=== PATIENT | female | born 1960 | race Caucasian/White ===

== ENCOUNTER 2019-08-07 15:23 | Emergency (ER) | payer MEDICARE, MEDICAID, SELFPAY ==
[2019-08-07 15:25] VITALS: BP 156/65; PULSE 86; RESP 16; TEMP 36.8; O2SAT 95; BMI 42.9
--- NOTE | 2019-08-07 16:07 | EKG12_ITS ---
Test Reason : FALL Blood Pressure : / mmHG Vent. Rate : 098 BPM Atrial Rate : 098 BPM P-R Int : 180 ms QRS Dur : 102 ms QT Int : 360 ms P-R-T Axes : 059 -06 096 degrees QTc Int : 459 ms Sinus rhythm with Premature supraventricular complexes Poor R wave progression Septal [place], age undetermined, cannot be excluded Nonspecific T wave abnormality Abnormal ECG Confirmed by MARLENI SANTOS, RUSTAM ([id number]), editor book SUSIE SEPULVEDA ([id number]) on 08/09/2019 9:38:46 AM Referred By: JESS Confirmed By:RUSTAM YEPEZ MD
--- NOTE | 2019-08-07 16:07 | RAD_ITS ---
STUDY: X-RAY - LEFT KNEE REASON FOR EXAM: Female, 58 years old. Multiple mechanical falls. Pain and abrasions. TECHNIQUE: 4 view(s) of the knee. COMPARISON: December 02, 2012. FINDINGS: Normal visualized distal femur. Normal visualized proximal tibia and fibula. Normal proximal tibiofibular articulation. There is no acute fracture, dislocation or destructive osseous pathology. There is mild degenerative arthrosis of the medial femorotibial compartment. There is mild degenerative arthrosis of the lateral femorotibial compartment. Normal patellofemoral articulation. There is no demonstrated joint effusion. There are atherosclerotic calcifications. RAD/Knee 4 or More Views IMPRESSION: Stable degenerative arthrosis of the left knee. There is no acute fracture or dislocation. Electronically Signed: Ezekiel Odonnell DO at 17:28 EDT Tel [phone], Service support ,
--- NOTE | 2019-08-07 16:07 | RAD_ITS ---
STUDY: X-RAY - PELVIS REASON FOR EXAM: Female, 58 years old. Multiple mechanical falls over the weekend. Bilateral knee pain and weakness. TECHNIQUE: One view of the pelvis was obtained. COMPARISON: November 06, 2009. FINDINGS: There is a non-specific bowel gas pattern. Normal visualized soft tissue structures. Normal bilateral iliac wings, sacroiliac joints and visualized sacrum. Normal visualized bilateral superior and inferior pubic rami. Normal pubic symphysis. Normal ischial tuberosities. Normal visualized right femoral head. Normal right acetabulum. There is mild articular joint space narrowing of the right hip. Normal visualized left femoral head. Normal left acetabulum. There is mild articular joint space narrowing of the left hip. RAD/Pelvis 1 or 2 Views IMPRESSION: Stable mild degenerative changes of bilateral hips. There is no visualized fracture or dislocation. Electronically Signed: Ezekiel Odonnell DO at 17:42 EDT Tel [phone], Service support ,
--- NOTE | 2019-08-07 16:10 | RAD_ITS ---
STUDY: X-RAY - RIGHT KNEE REASON FOR EXAM: Female, 58 years old. Multiple mechanical falls. Pain. Knee abrasions. TECHNIQUE: 4 view(s) of the knee. COMPARISON: None. FINDINGS: Normal visualized distal femur. Normal visualized proximal tibia and fibula. Normal proximal tibiofibular articulation. There is no acute fracture, dislocation or destructive osseous pathology. There is mild degenerative arthrosis of the medial femorotibial compartment. There is mild degenerative arthrosis of the lateral femorotibial compartment. Normal patellofemoral articulation. There is no demonstrated joint effusion. There are atherosclerotic calcifications. RAD/Knee 4 or More Views IMPRESSION: Degenerative arthrosis. There is no visualized fracture or dislocation. Electronically Signed: Ezekiel Odonnell DO at 17:24 EDT Tel [phone], Service support ,
[2019-08-07] MEDS: Ondansetron 4 MG/2 ML Vial IV (16:48)
[2019-08-07] MEDS: Morphine 4 MG/ML Syringe IV (16:48)
[2019-08-07 16:59] LABS: Absolute Lymphocyte Count 1.47 X10^3/uL (0.83-4.51); Absolute Neutrophil Count 6.1 X10^3/uL (2.0-7.7); Basophil# 0.04 X10^3/uL; Basophil% 0.5 % (0-1); Eosinophil# 0.25 X10^3/uL; Eosinophils% 2.8 % (0-5); Hematocrit 34.9 % (37-47); Hemoglobin 11.7 g/dL (12.0-15.0); Lymphocyte # 1.47 X10^3/ul (4.0); Lymphocyte % 16.6 % (19-41); Mean Corp Hgb Conc 33.5 g/dL (32-36); Mean Corpuscular Hgb 30.9 pg (27.0-32.0); Mean Corpuscular Volume 92.1 fL (81-99); Mean Platelet Vol. 10.6 fl (6.2-12.0); Monocyte# 0.84 X10^3/uL; Monocyte% 9.5 % (0-10); NRBC Flagged by Analyzer 0 % (0-5); Neutrophil # 6.12 X10^3/uL (2.7-7.7); Neutrophil % 68.9 % (47-70); Platelet Count 157 K/mm3 (150-450); RBC Distribution Width CV 13.1 % (11.6-14.6); RBC Distribution Width SD 44.2 fl (35.1-43.9); Red Blood Count 3.79 M/mm3 (4.2-5.4); White Blood Count 8.9 K/mm3 (4.4-11.0)
--- NOTE | 2019-08-07 17:05 | RAD_ITS ---
STUDY: X-RAY CHEST REASON FOR EXAM: Female, 58 years old. Multiple recent mechanical falls. History of lung and breast cancer with chemotherapy. TECHNIQUE: Single AP portable view of the chest. COMPARISON: July 26, 2015. FINDINGS: There is a left subclavian Port-A-Cath with its tip at the atriocaval caval junction. The lungs are hypoexpanded. There is atelectatic changes at the lung bases. No focal mass or consolidation. There is no demonstrated pleural abnormality. There is borderline cardiomegaly. Normal mediastinum and israel. Normal visualized pulmonary arteries. Normal visualized aortic arch and descending thoracic aorta. The thoracic spine is obscured by the mediastinum. There is degenerative osteoarthritis of the bilateral shoulders. Multiple surgical clips are seen in the right axilla and along the chest wall. There is no demonstrated abnormality of the visualized soft tissue structures of the upper abdomen. RAD/Chest 1 View (Portable) IMPRESSION: 1. Limited inspiratory effort with bibasilar atelectasis. 2. Borderline cardiomegaly. 3. Port-A-Cath. Electronically Signed: Ezekiel Odnonell DO at 17:23 EDT Tel [phone], Service support ,
[2019-08-07 17:13] LABS: Anion Gap 8 (5-15); BUN 45 mg/dL (7-18); BUN/Creat Ratio 18.4 RATIO (10-20); Calcium,Total 8.5 mg/dL (8.5-10.1); Chloride 105 mmol/L (98-107); Creatinine, Serum 2.44 mg/dL (0.55-1.02); EST Glomerular Filtration Rate 22 mL/min (>60); Est Glom Filt Rate - Afr Amer 26 mL/min (>60); Estimated Creatinine Clearance 22.23 ml/min; Glucose 225 mg/dL (74-106); Potassium 4.3 mmol/L (3.5-5.1); Sodium Level 135 mmol/L (136-145)
--- NOTE | 2019-08-07 17:44 | ED.VIS.GEN ---
History of Present Illness Chief Complaint: Fall Narrative: Presents after a mechanical fall 2 days ago, she is complaining of bilateral knee pain and hip pain. She is also worried that she is having bilateral lower extremity edema. She has a history of lower extremity edema but it has not been this bad in about a year per patient. 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 She denies any fever chills. She has no head injury when she fell, after discussing with her it seems to me that the fall was mechanical. She denies any chest pain, she has no shortness of breath. She has no pleuritic component. Past Medical History - Allergies and Home Meds Allergies/Adverse Reactions: Allergies acetaminophen [From Tylenol-Codeine #3] Allergy (Verified 08/07/19 15:25) Swelling codeine phosphate [From Tylenol-Codeine #3] Allergy (Verified 08/07/19 15:25) Swelling simvastatin [From Zocor] Allergy (Verified 08/07/19 15:25) Other Primary Care Physician: Truong Rose NP-C [Primary Care Provider] - Past Medical History: - - She has multiple medical problems as well as medications which were reviewed in the chart. Surgical History: noncontributory, - - Status post right mastectomy Smoking Status: Current every day smoker - Family History Maternal Family History: Reports: No pertinent history Review of Systems General: Reports: - - She does have some generalized weakness.. Denies: Chills, Fever Eyes: Denies: Visual changes - bilaterally Cardiovascular: Denies: Chest pain Respiratory: Denies: Dyspnea, Cough Gastrointestinal: Denies: Abdominal pain, Nausea Genitourinary: Denies: Dysuria Musculoskeletal: Reports: - - She is complaining of bilateral hip and pelvis pain. She has bilateral knee pain from the fall. Edema as above Skin: Denies: Abscess, Wounds Neurological: Denies: Headache, Parasthesia, Numbness Hematologic: Reports: Easy bruising, - - She is on Plavix Physical Exam Vital Signs/Narrative: Vital Signs Temp Pulse Resp BP Pulse Ox 08/07/19 15:25 98.3 F 86 16 156/65 H 95 General: Well nourished, Well developed Head: Normocephalic, Atraumatic Eyes: Perrl, EOMI ENT: Moist mucous membranes Cardiovascular: Regular rate Respiratory: No distress, CTA bilaterally Abdomen: Soft, Nontender Back: Nontender. Negative for: CVA tenderness Extremities: - - She has ill-defined bilateral pelvis tenderness. She does not have any lumbosacral spine tenderness. She also has bilateral knee pain with no effusion full range of motion. No evidence of contusions. She has bilateral symmetric lower extremity edema which is pitting. Skin: Normal color Neurological: Alert, Oriented x3, Normal Strength, Normal Sensation Diagnostic/Tx/Re-eval - Medical Decision Making Patient has normal x-rays, work-up is unremarkable, I will discharge with reassurance as well as analgesia for her pain she is otherwise to follow-up with her PCP. Patient was seen by me during peak influenza as well as the coronavirus outbreak. It is an epidemic. It is in National state of emergency. There is quite a bit of a risk in all patients presenting to the emergency department. However per [facility] protocol all attempts were made by myself as well as the staff to keep the contamination level down. I was fully mask and gloved the entire time in the patient's presence. Patient may benefit from more testing however at this time it would be riskier to either get more testing or to get admitted to the hospital. The patient has normal vital signs appears well and can get the rest of the testing done in the outpatient environment which would be much safer for the patient. ED Disposition - Plan for ED Patient: Disposition: Home or Assisted Living Diagnosis: Fall, Contusion Instructions: ED Mechanical Fall Prescriptions: Hydrocodone Bitart/Apap 5-325 [[place] 5MG-325MG] 1 tablet PO Q4H PRN PRN 2 Days #10 tablet PRN Reason: Pain Transmission Status: Sent to [id number] Referrals: Truong Rose NP-C [Primary Care Provider] - 3-5 Days
[2019-08-07] MEDS: oxyCODONE 5 MG Tablet PO (18:11)
[2019-08-07 18:18] VITALS: BP 147/87; PULSE 86; RESP 18; TEMP 36.1
== END 2019-08-07 18:22 | disposition home or self-care (01) ==
PROVIDERS: Emergency Provider Emergency Medicine; PCP Nurse Practitioner Family
DX: S80.212A Abrasion, left knee, initial encounter (principal); S80.211A Abrasion, right knee, initial encounter; F17.200 Nicotine dependence, unspecified, uncomplicated; E11.9 Type 2 diabetes mellitus without complications; Z79.4 Long term (current) use of insulin
CPT/HCPCS: 36591; 71045; 72170; 73564; 80048; 83880; 84484; 85025; 93005; 96365; 96375; 99285; J7030; A4216; J2405

== ENCOUNTER 2019-08-13 15:47 | Emergency (ER) | payer MEDICARE, MEDICAID, SELFPAY ==
[2019-08-13 15:48] VITALS: BP 162/78; PULSE 88; RESP 16; TEMP 36.3; O2SAT 97; BMI 44.6
[2019-08-13 16:05] VITALS: BP 162/77; PULSE 92; RESP 20; O2SAT 99
--- NOTE | 2019-08-13 16:18 | EKG12_ITS ---
Test Reason : Blood Pressure : / mmHG Vent. Rate : 088 BPM Atrial Rate : 088 BPM P-R Int : 180 ms QRS Dur : 100 ms QT Int : 362 ms P-R-T Axes : 056 -10 073 degrees QTc Int : 438 ms Normal sinus rhythm Septal infarct , age undetermined Abnormal ECG Confirmed by NOEMÍ LEWIS ([id number]), editor & co founder SUSIE SEPULVEDA ([id number]) on 08/18/2019 10:30:35 AM Referred By: QUINTON Confirmed By:NOEMÍ LEWIS
[2019-08-13 16:38] VITALS: BP 148/60; BP 165/71; BP 165/80; PULSE 88; PULSE 90; PULSE 92
[2019-08-13] MEDS: Acetaminophen 500 MG Tablet 1000 MG PO (16:39)
--- NOTE | 2019-08-13 16:56 | ED.DCSUM_ITS ---
- ER Visit Summary Date of Service: 08/13/19 Chief Complaint: Lightheaded History of Present Illness: The patient is a [address] Alec Higuera. She reports that she has been lightheaded for the past 2 days. Is a continuous sensation. Is worsened by standing. She is not passed out. She denies any vertigo. Patient reports that she has had generalized weakness and has fallen 3 times in the past week. She is been using her walker to get around for the past 2 days. She reports that she was seen here 6 days ago after a fall and was seen in another emergency department 2 days ago after a fall. She reports that she had a CAT scan there. She is unsure what other testing they did. She denies loss of consciousness. She is not on anticoagulants. She reports that she has bilateral knee pain. She denies a headache. She denies neck or back pain. Patient reports that she has had bilateral ankle swelling for approximately 1 week. She states that she is had a cough for the past 3 to 4 days is productive green sputum without blood. She reports that she has been mildly short of breath. She has not had an inhaler in a while. Patient reports she has been self isolating. She denies possibility of exposure to coronavirus. Physical Examination: Vitals: Stable. Afebrile. General: Well-nourished and well-developed. Head: Normocephalic atraumatic. Neck: Supple, no lymphadenopathy. No JVD. Nontender. Cardiovascular: Regular rate and rhythm. No murmurs. Respiratory: No respiratory distress. Clear to auscultation bilaterally. Abdominal: Soft, nontender, nondistended, normal bowel sounds. No guarding, rebound, or peritoneal signs. Back: Nontender. Extremities: Approximately quarter size abrasion over the right patella. Full range of motion out of difficulty. 1+ pitting edema of her lower extremities bilaterally. Skin: Normal color, no rash. Neurologic: Alert and oriented ?3. Cranial nerves II through XII are intact. Normal strength and sensation. Psych: Depressed affect. Test Results: EKG is sinus at 88 with no acute changes. CBC shows an H&H of 10.9 and 33.3, platelets 135. Chem-7 shows a calcium of 8.4, glucose 211, BUN of 42, creatinine 2.5. LFTs show an albumin of 2.4, globulin 4.4, and alk phos of 284. Chest x-ray shows a poor inspiration and no acute disease. Work-up from the outside hospital was obtained. 2 days ago the patient had a CT of her brain, facial bones, C-spine, chest, abdomen/pelvis which were unremarkable. I do not think that any of this needs to be repeated. She also had a urinalysis that was negative. This was not repeated either. Emergency Department Course and Treatment: Patient had negative orthostatic vital signs. She was given a 500 cc bolus of normal saline. She was given Tylenol p.o. An [facility] report was obtained which shows that the patient was actually in palliative care/hospice until November of last year. She was getting 20 mg of OxyContin 3 times daily and 10 mg of oxycodone 4 times daily. Since that time her opiate prescriptions have decreased. She did see Dr. Bruner in May. However, she saw her oncologist between November and February and was only prescribed gabapentin. She had not had gabapentin filled between February and July, but was given a prescription for 900 mg 3 times daily of gabapentin by Dr. Alec Higuera on August 01. Patient was given a dose of Tylenol here. She is repeatedly asking for stronger medication. I do not appreciate any injury that would warrant opiate-based medications. I discussed the patient that some of her lightheadedness and difficulty walking may be due to the gabapentin that she is now taking again and that opiate-based medications will just make this worse. Treatment Plan: At this time I suspect that a significant portion of this pat yaneli's lightheadedness is due to the gabapentin she is on. I do not think that putting her on opiate-based medication is indicated or in her best interest. She will be discharged instructions use Tylenol for pain. Follow-up with her primary care physician in 2 days after decreasing her gabapentin if she is not improved. Return to the emergency department for any worsening symptoms. Disposition: To home in improved and stable condition. Impression: 1. Chronic renal insufficiency. 2. Lightheadedness. 3. Repeated falls. This note was generated with [employer] software. It may contain incorrect words, spelling, and punctuation that were not noted in review of the chart prior to signing ED Disposition - Plan for ED Patient: Instructions: ED Fall Dizziness Weakn Balance Referrals: Iban Eldridge MD [Primary Care Provider] - 1-2 Days if not improving Nazario Bruner MD [STAFF PHYSICIAN] - As Needed Additional Instructions: Decrease your gabapentin to 1 pill 3 times a day and then gradually increase as directed by Dr. Eldridge.
--- NOTE | 2019-08-13 17:03 | RAD_ITS ---
STUDY: X-RAY CHEST REASON FOR EXAM: Female, 58 years old. PT ARRIVES TO ED WITH DIZZINESS, COUGH, INCREASED SOB, AND RECENT FALL. TECHNIQUE: Single frontal view of the chest. COMPARISON: August 07, 2019 FINDINGS: Left subclavian catheter terminates in the superior vena cava. Surgical clips right lateral chest wall. The lungs are clear and expanded. There is no demonstrated pleural abnormality. Normal size heart. Normal mediastinum and israel. Normal visualized pulmonary arteries. Normal visualized aortic arch and descending thoracic aorta. Normal visualized thoracic spine. Normal visualized ribs, clavicles, and shoulders. There is no demonstrated abnormality of the visualized soft tissue structures of the upper abdomen. RAD/Chest 1 View (Portable) IMPRESSION: No acute disease Electronically Signed: Colt Silvestre MD at 17:39 EDT , Service support ,
[2019-08-13 17:05] VITALS: BP 166/72; PULSE 85; RESP 14; O2SAT 99
[2019-08-13 17:06] LABS: Absolute Lymphocyte Count 1.12 X10^3/uL (0.83-4.51); Absolute Neutrophil Count 5.5 X10^3/uL (2.0-7.7); Basophil# 0.02 X10^3/uL; Basophil% 0.3 % (0-1); Eosinophil# 0.19 X10^3/uL; Eosinophils% 2.5 % (0-5); Hematocrit 33.3 % (37-47); Hemoglobin 10.9 g/dL (12.0-15.0); Lymphocyte # 1.12 X10^3/ul (4.0); Mean Corp Hgb Conc 32.7 g/dL (32-36); Mean Corpuscular Hgb 30.5 pg (27.0-32.0); Mean Corpuscular Volume 93.3 fL (81-99); Mean Platelet Vol. 10.4 fl (6.2-12.0); Monocyte# 0.58 X10^3/uL; Monocyte% 7.8 % (0-10); NRBC Flagged by Analyzer 0 % (0-5); Neutrophil # 5.48 X10^3/uL (2.7-7.7); Neutrophil % 73.3 % (47-70); Platelet Count 135 K/mm3 (150-450); RBC Distribution Width CV 13.2 % (11.6-14.6); RBC Distribution Width SD 45.2 fl (35.1-43.9); Red Blood Count 3.57 M/mm3 (4.2-5.4); White Blood Count 7.5 K/mm3 (4.4-11.0)
[2019-08-13 17:18] LABS: ALB/GLOB Ratio 0.5 RATIO (0.9-2.4); AST(SGOT) 30 U/L (15-37); Alanine Aminotransfer ALT/SGPT 36 U/L (13-56); Albumin, Serum 2.4 g/dL (3.2-5.0); Alkaline Phosphatase 284 U/L (45-117); Anion Gap 7 (5-15); BUN 42 mg/dL (7-18); BUN/Creat Ratio 16.8 RATIO (10-20); Calcium,Total 8.4 mg/dL (8.5-10.1); Chloride 106 mmol/L (98-107); EST Glomerular Filtration Rate 21 mL/min (>60); Est Glom Filt Rate - Afr Amer 26 mL/min (>60); Globulin 4.4 g/dL (2.2-4.2); Glucose 211 mg/dL (74-106); Potassium 4.1 mmol/L (3.5-5.1); Protein, Total 6.8 g/dL (6.4-8.2); Sodium Level 139 mmol/L (136-145)
[2019-08-13 17:35] VITALS: BP 170/79; PULSE 87; RESP 13; O2SAT 98
== END 2019-08-13 17:49 | disposition home or self-care (01) ==
LOC: ED 17:05
PROVIDERS: Emergency Provider Emergency Medicine; PCP Family Medicine
DX: E11.22 Type 2 diabetes mellitus with diabetic chronic kidney disease (principal); N18.9 Chronic kidney disease, unspecified; R42 Dizziness and giddiness; R29.6 Repeated falls; F17.200 Nicotine dependence, unspecified, uncomplicated; I12.9 Hypertensive chronic kidney disease with stage 1 through stage 4 chronic kidney disease, or unspecified chronic kidney disease; Z79.4 Long term (current) use of insulin
CPT/HCPCS: 36591; 71045; 80053; 85025; 93005; 94640; 96360; 99285; J7040; A4216

== ENCOUNTER → 2019-12-21 12:49 | Outpatient (CLI) | payer MEDICARE, MEDICAID, SELFPAY ==
--- NOTE | 2019-12-21 12:57 | VDUE_ITS ---
Reason For Study: ESRD Right Arm Left Arm Right Cephalic Vein at the wrist measures Left Cephalic Vein at the wrist measures 0.21 x 0.21 cm. 0.29 x 0.31 cm. Right Cephalic Vein in the forearm measures Left Cephalic Vein in the forearm measures 0.24 x 0.24 cm. 0.37 x 0.38 cm. Cephalic mid forearm branch measures 0.17 x Left Cephalic Vein below antecub measures 0.17 cm. 0.33 x 0.34 cm. Right Cephalic Vein below antecub measures Left Cephalic Vein above antecub measures 0.23 x 0.23 cm. 0.32 x 0.32 cm. Right Cephalic Vein above antecub measures Left Cephalic Vein at mid bicep measures 0.42 x 0.42 cm. 0.39 x 0.38 cm. Right Cephalic Vein mid bicep measures 0.40 Left Cephalic Vein at the shoulder measures x 0.39 cm. 0.34 x 0.34 cm. Right Cephalic Vein at the shoulder measures Basilic vein at origin measures 0.41 x 0.41 0.43 x 0.43 cm. cm. Right Basilic Vein at the origin measures Basilic vein at bicep measures 0.42 x 0.41 0.42 x 0.43 cm. cm. Right Basilic Vein mid bicep measures 0.30 x Basilic vein above antecub measures 0.42 x 0.33 cm. 0.42 cm. Right Basilic Vein above antecub measures Left Brachial index measures 0.43 x 0.44 cm 0.32 x 0.31 cm. with a velocity of 113.6 cm/sec. Right Brachial artery measure 0.38 x 0.37 cm Left Radial artery measures 0.13 x 0.13 cm with a velocity of 108.5 cm/sec. with a velocity of 53.3 cm/sec. Right Radial artery measures 0.15 x 0.15 cm with a velocity of 98.1 cm/sec. Interpretation Summary Patent and compressible bilateral upper extremity cephalic and basilic veins with dimensions as noted. Normal diameter and flow bilateral brachial arteries. Small bilateral radial arteries Ordering Physician: RENAE SINGH Referring Physician: MD Chente Iban Performed By: Genna Vera Saida ?
== END ==
PROVIDERS: PCP Family Medicine
DX: Z01.818 Encounter for other preprocedural examination (principal); N18.6 End stage renal disease
CPT/HCPCS: 93970

== ENCOUNTER 2019-12-21 13:36 | Inpatient (IN) | payer MEDICARE, MEDICAID, SELFPAY ==
[2019-12-21 13:37] VITALS: BP 158/74; PULSE 91; RESP 18; TEMP 36.7; O2SAT 99; BMI 44.6
--- NOTE | 2019-12-21 14:20 | RAD_ITS ---
STUDY: X-RAY - LEFT HAND REASON FOR EXAM: Female, 59 years old. LEFT THIRD DIGIT BLISTER, REDNESS SWELLING HEAT SPREADING UP HAND TECHNIQUE: 3 view(s) of the hand. COMPARISON: None. FINDINGS: Normal radiocarpal articulation. Normal distal radioulnar joint. Normal visualized carpal bones. Normal carpal articulations Normal carpometacarpal articulation of the thumb. Normal second through fifth carpometacarpal joints. Normal metacarpi. Normal metacarpophalangeal joint of the thumb. Normal interphalangeal joint of the thumb. Normal proximal and distal phalanges of the thumb. Normal metacarpophalangeal joints of the second through fifth fingers. Normal proximal and distal interphalangeal joints of the second through fifth fingers. Normal phalanges of the second through fifth fingers. Diffuse soft tissue swelling of the third digit. RAD/Hand Min 3 Views IMPRESSION: Diffuse soft tissue swelling involving the third digit. Electronically Signed: Georges Lucas, at 14:31 EDT , Service support ,
[2019-12-21 14:40] VITALS: BP 151/61; PULSE 90; RESP 18; TEMP 36.7; O2SAT 97
[2019-12-21] MEDS: Morphine 4 MG/ML Syringe IV ×2 (15:14→16:43)
[2019-12-21] MEDS: Ondansetron 4 MG/2 ML Vial IV ×2 (15:16→23:38)
[2019-12-21 15:27] LABS: Absolute Lymphocyte Count 1.24 X10^3/uL (0.83-4.51); Absolute Neutrophil Count 7.4 X10^3/uL (2.0-7.7); Basophil# 0.03 X10^3/uL; Basophil% 0.3 % (0-1); Eosinophil# 0.28 X10^3/uL; Eosinophils% 2.9 % (0-5); Hemoglobin 10.4 g/dL (12.0-15.0); Lymphocyte # 1.24 X10^3/ul (4.0); Lymphocyte % 12.9 % (19-41); Mean Corp Hgb Conc 32.5 g/dL (32-36); Mean Corpuscular Hgb 30.7 pg (27.0-32.0); Mean Corpuscular Volume 94.4 fL (81-99); Mean Platelet Vol. 11.1 fl (6.2-12.0); Monocyte# 0.64 X10^3/uL; Monocyte% 6.7 % (0-10); NRBC Flagged by Analyzer 0 % (0-5); Neutrophil # 7.35 X10^3/uL (2.7-7.7); Neutrophil % 76.5 % (47-70); Platelet Count 138 K/mm3 (150-450); RBC Distribution Width CV 13.8 % (11.6-14.6); RBC Distribution Width SD 46.5 fl (35.1-43.9); Red Blood Count 3.39 M/mm3 (4.2-5.4); White Blood Count 9.6 K/mm3 (4.4-11.0)
[2019-12-21 15:34] LABS: ALB/GLOB Ratio 0.6 RATIO (0.9-2.4); AST(SGOT) 44 U/L (15-37); Alanine Aminotransfer ALT/SGPT 37 U/L (13-56); Albumin, Serum 2.5 g/dL (3.2-5.0); Alkaline Phosphatase 407 U/L (45-117); Anion Gap 6 (5-15); BUN 37 mg/dL (7-18); BUN/Creat Ratio 13.3 RATIO (10-20); Chloride 105 mmol/L (98-107); Creatinine, Serum 2.79 mg/dL (0.55-1.02); EST Glomerular Filtration Rate 19 mL/min (>60); Est Glom Filt Rate - Afr Amer 23 mL/min (>60); Estimated Creatinine Clearance 19.21 ml/min; Globulin 4.4 g/dL (2.2-4.2); Glucose 370 mg/dL (74-106); Protein, Total 6.9 g/dL (6.4-8.2); Sodium Level 138 mmol/L (136-145)
[2019-12-21 15:44] LABS: Lactic Acid 0.8 mmol/L (0.4-1.9)
--- NOTE | 2019-12-21 16:59 | ED.VISSUMM ---
- ER Visit Summary Date of Service: 12/21/19 Chief Complaint: Left middle finger pain and swelling History of Present Illness: The patient is a 59 F who presents with pain and swelling to her left middle finger that is been getting worse over the past 2 days. Patient states it is gradually getting worse. Patient noted a blister on her left middle finger. Patient noted increased redness and swelling of the finger today. Patient states she called her primary care physician who referred her to the emergency department. Patient describes her pain as sharp. Patient states her pain is worse with movement. Patient does admit to some tingling in the tip of her left middle finger. Patient is right-hand dominant. Physical Examination: Vital signs are stable. Patient is afebrile. Patient is in no acute distress. Skin is warm and dry. There is erythema and warmth over the middle and distal phalanges of the left middle finger. There is tenderness over the dorsal aspect of the left middle finger. There is no tenderness along the flexor tendon. There is pain with extension of the left middle finger. Capillary refill is less than 2 seconds in all digits. Sensation was intact to light touch in all digits. There is erythematous streaking going up the dorsal aspect of the left forearm. Radial pulses are equal bilaterally. Test Results: X-rays of the left hand were obtained. There is soft tissue swelling of the left middle finger. There is no evidence of osteomyelitis. CBC shows a normal white blood cell count. Hemoglobin was 10.4 hematocrit was 32.0. BUN was 37 and creatinine was 2.79. These are consistent with prior results. Glucose was 370. Potassium was 3.0. Alk phos was slightly elevated at 407 and AST was 44. Emergency Department Course and Treatment: Patient was given morphine and Zofran initially. Patient was started on Unasyn. Patient was given a repeat dose of morphine. The blister opened spontaneously and there was serous drainage noted. Case was discussed with Dr. Isrrael Soriano from orthopedics. He recommended discussing the patient with Dr. Sloan or transferring the patient to a facility that has hand surgery. Case was discussed with Dr. Sloan. He will see the patient in the hospital as a consult. Case was discussed with hospitalist, Dr. Vivar. He will admit the patient to his service. Patient understands and is agreeable with the plan. All questions were answered. Disposition: Admit to hospital Impression: 1. Cellulitis left long finger This note was generated with [employer] dictation software. It may contain incorrect words, spelling, and punctuation that were not noted in review of the chart prior to signing ED Disposition - Plan for ED Patient: Disposition: Acute Care Hospital [facility] Diagnosis: Cellulitis of left middle finger Referrals: Iban Eldridge MD [Primary Care Provider] -
[2019-12-21 18:00] VITALS: BP 172/78; PULSE 92; RESP 92; TEMP 36.8; O2SAT 94
[2019-12-21 18:12] VITALS: BP 172/78; PULSE 92; RESP 94; TEMP 36.8; O2SAT 94
[2019-12-21 18:25] VITALS: BMI 44.6
--- NOTE | 2019-12-21 18:59 | HP.PCM_ITS ---
Problem List (1) Acute kidney injury Status: Acute (2) Cellulitis of left middle finger Status: Acute (3) Right arm cellulitis Status: Acute (4) Tobacco abuse Status: Acute History of Present Illness Date of Admission: 12/21/19 Chief Complaint: Swelling in the left long finger. The patient is a 59 year old F presents with 3-day history of swelling and redness of the left long finger. Patient stated began as a blister and just has progressively gotten worse. States that she has had redness extending up her arm. Has had increased blistering underneath her finger. Denies any trauma. She does not have any pets and denies any contact with anyone with pets who may have bitten her hand. Patient states that during the wintertime, she does, get pain in her distal digits but never has any discoloration. Patient denies any other constitutional symptoms. She presented to the emergency room where she was found to have cellulitis and received ampicillin/sulbactam. [] Past Medical History Medical History: Medical History (Last Updated 12/21/19 @ 19:[address] Homar Vivar, ) Breast cancer C50.919 CAD (coronary artery disease) I25.10 DM2 (diabetes mellitus, type 2) E11.9 ESRD (end stage renal disease) N18.6 Hypothyroidism E03.9 VTE (venous thromboembolism) I82.90 Chronic pain G89.29 HTN (hypertension) I10 Allergies acetaminophen [From Tylenol-Codeine #3] Allergy (Verified 08/13/19 15:48) Swelling codeine phosphate [From Tylenol-Codeine #3] Allergy (Verified 08/13/19 15:48) Swelling simvastatin [From Zocor] Allergy (Verified 08/13/19 15:48) Other Home Medications: Ambulatory Orders Medication Instructions Recorded Clopidogrel Bisulfate [Plavix] 75 mg PO DAILY 05/14/13 Furosemide [Lasix] 80 mg PO DAILY 05/14/13 Insulin Aspart [Novolog Flexpen] 28 units SC TIDCM 05/14/13 Insulin Glargine [Lantus SoloStar 60 units SC QHS 05/14/13 Pen] Levothyroxine Sodium [Levoxyl] 200 mcg PO DAILY 05/14/13 Valsartan [Diovan] 160 mg PO DAILY 01/26/14 proMETHazine tablet [Phenergan 25 mg PO Q8H PRN PRN 05/14/13 tablet] Gabapentin [Neurontin] 900 mg PO TID 05/08/15 Aspirin [Aspir 81] 81 mg PO DAILY 08/13/19 Bupropion HCl [Bupropion Xl] 300 mg PO DAILY 08/13/19 Carvedilol 6.25 mg PO BID 08/13/19 Citalopram [Celexa] 40 mg PO DAILY 08/13/19 Duloxetine HCl 60 mg PO DAILY 08/13/19 Acetaminophen [Tylenol] 650 mg PO Q4H PRN PRN 12/21/19 Amlodipine [Norvasc] 5 mg PO DAILY 12/21/19 Calcitriol [Rocaltrol] 0.25 mcg PO DAILY 12/21/19 Calcium Acetate [Phoslo Gel Cap] 1,334 mg PO TIDCM 12/21/19 Insulin Lispro [Humalog] 0 unit SQ TID 12/21/19 Nitroglycerin [Nitrostat] 0.4 mg SL UD 12/21/19 Surgical History: noncontributory, - - Status post right mastectomy Psychiatric History: No pertinent psych hx Smoking Status: Current every day smoker Tobacco Use: Cigarettes - *Family History Maternal History Items: Heart Disease Paternal History Items: Heart Disease Review of Systems Constitutional: Denies: Anorexia, Chills, Fever, Night Sweats Eyes: Denies: Blurred vision, Double vision HEENT: Denies: Head Aches, Sinus Congestion, Sinus Drainage Cardiovascular: Denies: Chest Pain, Palpitations Respiratory: Denies: Cough, Shortness of breath at rest, Sputum production Gastrointestinal: Denies: Abdominal Pain, Nausea, Vomiting Genitourinary: Denies: Dysuria Musculoskeletal: Reports: - - Pain in left long finger and hand. Skin: Reports: - Neurological: Denies: Numbness, Tingling, Focal weakness Psychiatric: Denies: Anxiety, Depression Hematologic/ Lymphatic: Reports: Hx of blood clot. Denies: Easy Bruising, Easy Bleeding Comment: All review of systems were negative except as mentioned above in the history of present illness and the other review of systems. VTE Information - Inpt Only VTE Present on Admission: No VTE Mechan Device Prophylaxis: None VTE Pharm Prophylaxis ordered?: Yes - Physical Exam Vitals/I&O's: Vital Signs Temp Pulse Resp BP Pulse Ox 36.8 C 92 94 H 172/78 H 94 12/21/19 18:12 12/21/19 18:12 12/21/19 18:12 12/21/19 18:12 12/21/19 18:12 Oxygen Delivery Method Room Air Weight: 117.934 kg Body Mass Index (BMI) 44.6 Intake and Output for Last 24 Hours 12/19/19 12/20/19 12/21/19 23:59 23:59 23:59 Intake Total 112 / 112 Balance 112 / 112 General: Alert, No apparent distress, - - Up eating sandwich in her bed HEENT: Atraumatic, Normocephalic Neck: No Nodes, Thyroid Normal Size and Texture Lungs: Clear to auscultation, Normal air movement, No rhonchi, No wheeze Cardiovascular: Regular rate, Regular Rhythm, Normal S1, Normal S2, No murmurs Abdomen: Bowel Sounds Present, Soft, Non Tender, Non-Distended, No Hepato- splenomegaly Extremities: No edema, No Calf Tenderness, - - Blistering the palmar aspect of the radial aspect of the left long finger. Does have some rubor the volar side. Swelling throughout the left long finger but more pronounced distally. Diminished capillary refill in the left digits as compared to the right. Skin: - - Blistering the palmar aspect of the radial aspect of the left long finger. Does have some rubor the volar side. Swelling throughout the left long finger but more pronounced distally. Diminished capillary refill in the left digits as compared to the right. Psych/Mental Status: Normal Affect, Appropriate Laboratory Results 12/21/19 15:05: WBC 9.6, RBC 3.39 L, Hgb 10.4 L, Hct 32.0 L, MCV 94.4, MCH 30.7, MCHC 32.5, RDW Std Deviation 46.5 H, RDW Coeff of Angela 13.8, Plt Count 138 L, MPV 11.1, Immature Gran % (Auto) 0.700, Neut % (Auto) 76.5 H, Lymph % (Auto) 12.9 L, [place] % (Auto) 6.7, Eos % (Auto) 2.9, Baso % (Auto) 0.3, Absolute Neuts (auto) 7.4, Absolute Lymphs (auto) 1.24, Nucleated RBC % 0 12/21/19 15:05: Sodium 138, Potassium 3.0 L, Chloride 105, Carbon Dioxide 27.0, Anion Gap 6, BUN 37 H, Creatinine 2.79 H, Estim Creat Clear Calc 19.21, Est GFR (MDRD) Af Amer 23 L, Est GFR (MDRD) Non-Af 19 L, BUN/Creatinine Ratio 13.3, Glucose 370 H, Calcium 8.0 L, Total Bilirubin 0.30, AST 44 H, ALT 37, Alkaline Phosphatase 407 H, Total Protein 6.9, Albumin 2.5 L, Globulin 4.4 H, Albumin/Globulin Ratio 0.6 L 12/21/19 15:05: Lactic Acid 0.8 Duplex of the upper extremity was unremarkable. Did note small bilateral radial arteries. Hand x-ray showed soft tissue swelling over the left third digit. Assessment/Plan All Active Problems Cellulitis of left middle finger (Acute) Acute kidney injury (Acute) Tobacco abuse (Acute) Right arm cellulitis (Acute) 1. Left long finger cellulitis * Also noted blistering and some rubor. But there was lymphangitis noted. * Concern is for cellulitis. Also concerned the patient may have some underlying Raynauds. * Patient will be on antibiotics. Given the rapid onset, to cover with broad- spectrum antibiotics with Pipracil/tazobactam and vancomycin. * Given concern for some underlying raynauds, go to increase her amlodipine from 5 to 10 mg daily. * Check an MRI to evaluate for any osteomyelitis * Dr. Sloan was contacted through the emergency room and will see the patient in consultation. 2. End-stage renal disease * Patient has a port in her right chest which appears to be clean and intact * Patient gets dialysis every Wednesday * Will consult nephrology. Patient states that Dr. Mallory may be her airframe technician but when I brought up his name she seemed to think that is who her airframe technician was. 3. Chronic conditions, stable but overall complicate care and management * diabetes mellitus type 2 continue with her basal and prandial insulin. Add sliding scale insulin * Coronary artery disease: Continue with aspirin. Hold off on clopidogrel for now if patient does require surgery. Continue with carvedilol * Chronic pain: Continue with gabapentin. Will have oxycodone available for pain control as well. 4. VTE prophylaxis: Moderate risk. Enoxaparin 5. Advanced care planning: Discussed with the patient. Patient wishes to be DNR Comfort Care arrest at this time. Inpatient E&M: 62596 Init Hosp L3
[2019-12-21 19:40] VITALS: BMI 43.8
[2019-12-21 20:20] VITALS: BP 133/59; PULSE 90; RESP 18; TEMP 36.9; O2SAT 93
[2019-12-21] MEDS: proMETHazine 25 MG Tablet PO (21:55)
[2019-12-21 22:25] LABS: Bedside Glucose 328 mg/dL (70-110)
--- NOTE | 2019-12-21 23:27 | PCM.RX.CS ---
Consult Pharmacy has been consulted to manage selected antiobiotic: Vancomycin Type of Consult: New start Suspected Infection: Skin/Soft tissue Prior Doses of Antibiotics Received/Current Regimen: Medications Discontinued Medications Vancomycin HCl 2,000 mg/ (Sodium Chloride) 540 mls @ 250 mls/hr IV X1 ONE Stop: 12/21/19 23:09 Last Admin: 12/21/19 21:15 Dose: 250 mls/hr Labs: Sodium 138 mmol/L (136-145) 12/21/19 15:05 Potassium 3.0 mmol/L (3.5-5.1) L 12/21/19 15:05 Chloride 105 mmol/L (98-107) 12/21/19 15:05 Carbon Dioxide 27.0 mmol/L (21.0-32.0) 12/21/19 15:05 Anion Gap 6 (5-15) 12/21/19 15:05 BUN 37 mg/dL (7-18) H 12/21/19 15:05 Creatinine 2.79 mg/dL (0.55-1.02) H 12/21/19 15:05 Est GFR (MDRD) Af Amer 23 mL/min (>60) L 12/21/19 15:05 Est GFR (MDRD) Non-Af 19 mL/min (>60) L 12/21/19 15:05 BUN/Creatinine Ratio 13.3 RATIO (10-20) 12/21/19 15:05 Glucose 370 mg/dL (74-106) H 12/21/19 15:05 Weight used for dosin.8 kg Estimated Creatinine Clearance: 19.2 Goal Trough: 15-20 mcg/mL Pharmacy Plan for Drug Dosing: Loading dose of 2000mg was given 12/21/19. Next dose will be given after next dialysis session -- pharmacy will verify with nursing the time/date of dialysis. Pharmacy Service will continue to monitor and adjust dosing as required.
[2019-12-21] MEDS: oxyCODONE 5 MG Tablet PO (23:38)
[2019-12-21] MEDS: Acetaminophen 325 MG Tablet 650 MG PO (23:38)
[2019-12-21] MEDS: Carvedilol 6.25 MG Tablet PO (23:39)
[2019-12-21] MEDS: Gabapentin 300 MG Capsule 900 MG PO (23:39)
[2019-12-22 01:10] VITALS: BMI 43.8
[2019-12-22 02:32] VITALS: BP 121/63; PULSE 80; RESP 16; TEMP 36.9; O2SAT 95
[2019-12-22] MEDS: 0.9% Saline Lock 10 ML Syringe IV ×3 (03:39→14:25)
[2019-12-22] MEDS: oxyCODONE 5 MG Tablet 10 MG PO ×2 (03:39→16:55)
--- NOTE | 2019-12-22 05:00 | EKG12_ITS ---
Test Reason : PREOP Blood Pressure : / mmHG Vent. Rate : 080 BPM Atrial Rate : 080 BPM P-R Int : 174 ms QRS Dur : 100 ms QT Int : 422 ms P-R-T Axes : 053 000 139 degrees QTc Int : 486 ms Normal sinus rhythm Nonspecific T wave abnormality Prolonged QT Abnormal ECG When compared with ECG of 13-AUG-2019 16:41, Criteria for Septal infarct are no longer Present Inverted T waves have replaced nonspecific T wave abnormality in Lateral leads Confirmed by MARA SANTOS, JOJO ([id number]), editor index ALANNA FIELD ([id number]) on 12/29/2019 1:40:08 PM Referred By: CATRACHO Confirmed By:ERICK TERRY MD
--- NOTE | 2019-12-22 06:00 | MRI_ITS ---
STUDY: MRI LEFT HAND (ATTENTION THIRD DIGIT) REASON FOR EXAM: Cellulitis of the left long finger for several days with redness and swelling, no specific injury. TECHNIQUE: Standardized fat and water weighted pulse sequences were obtained in all 3 orthogonal planes. COMPARISON: Radiographs 12/21/2019. FINDINGS: Although there is image degradation secondary to patient motion, there is still significant diagnostically useful information available from this examination. There is no bone edema of the phalanges or visualized distal metacarpals of the second through fifth digits. Normal flexor and extensor tendons of the third digit. Normal third metacarpophalangeal joint. Normal proximal and distal interphalangeal joints of the third digit. There is edema in the subcutis adipose space of the third digit (inversion recovery axial images 10-24). There is no focal fluid collection to indicate soft tissue abscess. MRI/Upper Ext/No Jt/ wo IMPRESSION: Edema in the subcutis adipose space of the third finger. No demonstrated osteomyelitis or abscess. Electronically Signed: Kt Dent MD at 9:32 EDT Tel , Service support ,
[2019-12-22 07:09] LABS: Absolute Lymphocyte Count 1.58 X10^3/uL (0.83-4.51); Absolute Neutrophil Count 6.3 X10^3/uL (2.0-7.7); Basophil# 0.02 X10^3/uL; Basophil% 0.2 % (0-1); Eosinophil# 0.31 X10^3/uL; Eosinophils% 3.4 % (0-5); Hematocrit 30.7 % (37-47); Hemoglobin 9.9 g/dL (12.0-15.0); Lymphocyte # 1.58 X10^3/ul (4.0); Lymphocyte % 17.3 % (19-41); Mean Corp Hgb Conc 32.2 g/dL (32-36); Mean Corpuscular Hgb 31.1 pg (27.0-32.0); Mean Corpuscular Volume 96.5 fL (81-99); Mean Platelet Vol. 11.1 fl (6.2-12.0); Monocyte# 0.87 X10^3/uL; Monocyte% 9.5 % (0-10); NRBC Flagged by Analyzer 0 % (0-5); Neutrophil # 6.28 X10^3/uL (2.7-7.7); Neutrophil % 68.6 % (47-70); Platelet Count 148 K/mm3 (150-450); RBC Distribution Width CV 13.9 % (11.6-14.6); RBC Distribution Width SD 49.1 fl (35.1-43.9); Red Blood Count 3.18 M/mm3 (4.2-5.4); White Blood Count 9.2 K/mm3 (4.4-11.0)
[2019-12-22 07:42] LABS: International Normalized Ratio 1.1; Prothrombin Time (Protime)PT. 13.6 SECONDS (11.7-14.9)
[2019-12-22 07:43] LABS: Anion Gap 12 (5-15); BUN 39 mg/dL (7-18); BUN/Creat Ratio 11.9 RATIO (10-20); Calcium,Total 7.5 mg/dL (8.5-10.1); Chloride 100 mmol/L (98-107); Creatinine, Serum 3.28 mg/dL (0.55-1.02); EST Glomerular Filtration Rate 15 mL/min (>60); Est Glom Filt Rate - Afr Amer 19 mL/min (>60); Estimated Creatinine Clearance 16.34 ml/min; Glucose 312 mg/dL (74-106); Partial Thromboplast Time 27.2 Seconds (24.1-36.2); Potassium 3.4 mmol/L (3.5-5.1); Sodium Level 135 mmol/L (136-145)
[2019-12-22 07:50] LABS: Hemoglobin A1c 7.7 % (3.8-5.6)
[2019-12-22] MEDS: LORazepam 2 MG/ML Syringe 1 MG IV (08:14)
[2019-12-22] MEDS: Acetaminophen 325 MG Tablet 650 MG PO (08:15)
[2019-12-22] MEDS: Insulin Lispro 100 UNIT/ML INSULN.PEN SC ×2 (08:23→17:01)
[2019-12-22 08:28] VITALS: BP 103/55; PULSE 78; RESP 18; TEMP 37.1; O2SAT 98
[2019-12-22 08:41] LABS: Bedside Glucose 298 mg/dL (70-110)
[2019-12-22 08:43] VITALS: BP 142/76; PULSE 82; RESP 14; O2SAT 100
[2019-12-22 09:27] VITALS: BP 106/89; PULSE 78; RESP 14; O2SAT 99
--- NOTE | 2019-12-22 09:27 | NURSING ---
PT POSITIONED PRONE FOR MRI. TOLERATING WELL. 3L 02 APPLIED. PT 85% ON RA.
--- NOTE | 2019-12-22 09:28 | NURSING ---
PT TOLERATED THE MRI WELL. ABLE TO ROLL BACK ONTO INPT BED. ALERT/ORIENTED TO VOICE.
[2019-12-22 10:31] LABS: T4 Free Direct 0.97 ng/dL (0.76-1.46)
--- NOTE | 2019-12-22 12:15 | PN_ITS ---
<Travis Salguero - Last Filed: 12/22/19 12:15> Patient Problems: Active and Suspected Problems (Last Updated 12/21/19 @ 19:[address] Homar Vivar, DO) Cellulitis of left middle finger (Acute) Reason for Visit: Left 3rd digit cellulitis Subjective: Pt reports minimal improvement. distal third finger is swollen, red, painful, with limited rom. No fever/chills. No cough/SOB. Pt undergoing dialysis today. Vitals/I&O's: Vital Signs Temp Pulse Resp BP Pulse Ox 98.8 F 78 14 106/89 H 99 12/22/19 08:28 12/22/19 09:27 12/22/19 09:27 12/22/19 09:27 12/22/19 09:27 Oxygen Flow Rate (L/min) 3 Oxygen Delivery Method Nasal Cannula Weight: 254 lb 13.67 oz Body Mass Index (BMI) 43.8 Intake and Output for Last 24 Hours 12/20/19 12/21/19 12/22/19 23:59 23:59 23:59 Intake Total 1002 / 1002 50 / 50 Balance 1002 / 1002 50 / 50 General: Alert, Oriented x3, Cooperative HEENT: Atraumatic, PERRLA, EOMI, Normocephalic Neck: Supple, No JVD, Negative Carotid Bruits Lungs: Clear to auscultation, Normal air movement Cardiovascular: Regular rate, No murmurs Abdomen: Bowel Sounds Present, Soft, Non Tender Extremities: No edema, Capillary Refill Less than 3 Seconds Skin: No rashes, No breakdown Musculoskeletal: No Tenderness to Palpation of Joints or Extremities Neurological: Cranial nerves II-XII grossly intact Psych/Mental Status: Normal Affect, Appropriate, Alert and oriented to time, place, person, mood and affect Laboratory Results 12/21/19 15:05: WBC 9.6, RBC 3.39 L, Hgb 10.4 L, Hct 32.0 L, MCV 94.4, MCH 30.7, MCHC 32.5, RDW Std Deviation 46.5 H, RDW Coeff of Angela 13.8, Plt Count 138 L, MPV 11.1, Immature Gran % (Auto) 0.700, Neut % (Auto) 76.5 H, Lymph % (Auto) 12.9 L, Benton % (Auto) 6.7, Eos % (Auto) 2.9, Baso % (Auto) 0.3, Absolute Neuts (auto) 7.4, Absolute Lymphs (auto) 1.24, Nucleated RBC % 0 12/21/19 15:05: Sodium 138, Potassium 3.0 L, Chloride 105, Carbon Dioxide 27.0, Anion Gap 6, BUN 37 H, Creatinine 2.79 H, Estim Creat Clear Calc 19.21, Est GFR (MDRD) Af Amer 23 L, Est GFR (MDRD) Non-Af 19 L, BUN/Creatinine Ratio 13.3, Glucose 370 H, Calcium 8.0 L, Total Bilirubin 0.30, AST 44 H, ALT 37, Alkaline Phosphatase 407 H, Total Protein 6.9, Albumin 2.5 L, Globulin 4.4 H, Albumin/Globulin Ratio 0.6 L 12/21/19 15:05: Lactic Acid 0.8 12/21/19 22:00: POC Glucose 328 H 12/22/19 02:25: COVID-19 ([facility]) Pending 12/22/19 06:52: WBC 9.2, RBC 3.18 L, Hgb 9.9 L, Hct 30.7 L, MCV 96.5, MCH 31.1, MCHC 32.2, RDW Std Deviation 49.1 H, RDW Coeff of Angela 13.9, Plt Count 148 L, MPV 11.1, Immature Gran % (Auto) 1.000 H, Neut % (Auto) 68.6, Lymph % (Auto) 17.3 L, Benton % (Auto) 9.5, Eos % (Auto) 3.4, Baso % (Auto) 0.2, Absolute Neuts (auto) 6.3, Absolute Lymphs (auto) 1.58, Nucleated RBC % 0 12/22/19 06:52: Sodium 135 L, Potassium 3.4 L, Chloride 100, Carbon Dioxide 23.0, Anion Gap 12, BUN 39 H, Creatinine 3.28 H, Estim Creat Clear Calc 16.34, Est GFR (MDRD) Af Amer 19 L, Est GFR (MDRD) Non-Af 15 L, BUN/Creatinine Ratio 11.9, Glucose 312 H, Calcium 7.5 L, TSH 11.50 H 12/22/19 06:52: PT 13.6, INR 1.1, APTT 27.2 12/22/19 06:52: Hemoglobin A1c 7.7 H 12/22/19 06:52: Free T4 0.97 12/22/19 08:19: POC Glucose 298 H Current Medications Acetaminophen (Tylenol) 650 mg PO Q6H PRN PRN PRN Reason: Pain Score 1-10/Temp > 100.7 F Last Admin: 12/22/19 08:15 Dose: 650 mg Documented by: Amlodipine Besylate (Norvasc) 10 mg PO DAILY [facility] Aspirin (Ecotrin) 81 mg PO DAILYCM [facility] Bupropion HCl (Wellbutrin Xl) 300 mg PO DAILY [facility] Calcitriol (Rocaltrol) 0.25 mcg PO DAILY [facility] Calcium Acetate (Phoslo Gel Cap) 1,334 mg PO TIDCM [facility] Carvedilol (Coreg) 6.25 mg PO BID [facility] Last Admin: 12/21/19 23:39 Dose: 6.25 mg Documented by: Citalopram Hydrobromide (Celexa) 40 mg PO DAILY [facility] Dextrose (D50w Syringe) 0 gm IV X1 PRN; Protocol PRN Reason: Hypoglycemia Duloxetine HCl (Cymbalta) 60 mg PO DAILY [facility] Enoxaparin Sodium (Lovenox) 40 mg SC DAILY [facility] Furosemide (Lasix) 80 mg PO DAILY [facility] Gabapentin (Neurontin) 900 mg PO TIDCM [facility] Last Admin: 12/21/19 23:39 Dose: 900 mg Documented by: Glucagon () 1 mg IM .X1 PRN PRN Reason: Hypoglycemia Piperacillin Sod/Tazobactam (Sod 3.375 gm/ Sodium Chloride) 50 mls @ 12.5 mls/hr IV Q12 [facility] Last Infusion: 12/22/19 03:39 Dose: Infused Documented by: Vancomycin IV Pharmacy to Dose (1 ea/ Sodium Chloride) 500 mls @ 250 mls/hr IV PRN PRN; Protocol PRN Reason: Rx to Dose Sodium Chloride () 250 mls @ 15 mls/hr IV .[id number] PRN PRN Reason: Saline Flush Insulin Glargine (Lantus (Bk)) 60 units SC QHS [facility] Last Admin: 12/21/19 22:01 Dose: 60 units Documented by: Insulin Human Lispro (Humalog Kwikpen ([facility])) 28 unit SC TIDAC [facility] Insulin Human Lispro (Humalog Kwikpen ([facility])) 0 unit SC TIDAC [facility]; Protocol Last Admin: 12/22/19 08:23 Dose: 4 u Documented by: Levothyroxine Sodium (Synthroid) 200 mcg PO DAILY@0600 [facility] Last Admin: 12/22/19 05:13 Dose: Not Given Documented by: Losartan Potassium (Cozaar) 50 mg PO DAILY [facility] Nitroglycerin (Nitrostat) 0.4 mg SUBLINGUAL UD PRN PRN Reason: chest pain Ondansetron HCl (Zofran) 4 mg IV Q8H PRN PRN PRN Reason: NAUSEA/VOMITING Last Admin: 12/21/19 23:38 Dose: 4 mg Documented by: Oxycodone HCl (Oxyir) 5 mg PO Q4H PRN PRN PRN Reason: Pain Score 4-5/10 Last Admin: 12/21/19 23:38 Dose: 5 mg Documented by: Oxycodone HCl (Oxyir) 10 mg PO Q4H PRN PRN PRN Reason: Pain Score 6-10/10 Last Admin: 12/22/19 03:39 Dose: 10 mg Documented by: Promethazine HCl (Phenergan Tablet) 25 mg PO Q8H PRN PRN PRN Reason: NAUSEA Last Admin: 12/21/19 21:55 Dose: 25 mg Documented by: Sodium Chloride () 10 - 40 ml IV UD PRN PRN Reason: SALINE FLUSH Last Admin: 12/22/19 08:15 Dose: 10 ml Documented by: STROKE Vital Signs/Narrative: Vital Signs Temp Pulse Resp BP Pulse Ox 12/22/19 09:27 78 14 106/89 H 99 12/22/19 08:43 82 14 142/76 H 100 12/22/19 08:28 98.8 F 78 18 103/55 L 98 Medical Necessity - Tobacco Use Smoking Status: Current every day smoker Tobacco Use: Cigarettes Assessment/Plan All Active Problems (Last Updated 12/21/19 @ 19:[address] Homar Vivar, DO) Cellulitis of left middle finger (Acute) 1. Left 3rd finger cellulitis - Dr. Sloan consulted. continue vanc/zosyn. No fever/chills/leukocytosis. MRI does not demonstrate osteomyelitis or abscess. 2. ESRD - dialysis today 3. Hx BrCa-in remission 4. DMt2-uncontrolled with hyperglycemia. 5. 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 6. Hx CAD - aspirin, coreg. plavix held. 7. Normocytic anemia-anemia of chronic disease. Will trend. DVT ppx: lovenox-monitor platelets with mild thrombocytopenia. This patient was seen by Travis Salguero PA-C under the supervision of Doctor Truman. <Natalie Laughlin E - Last Filed: 12/22/19 12:50> Vitals/I&O's: Vital Signs Temp Pulse Resp BP Pulse Ox 98.8 F 78 14 106/89 H 99 12/22/19 08:28 12/22/19 09:27 12/22/19 09:27 12/22/19 09:27 12/22/19 09:27 Oxygen Flow Rate (L/min) 3 Oxygen Delivery Method Nasal Cannula Weight: 254 lb 13.67 oz Body Mass Index (BMI) 43.8 Intake and Output for Last 24 Hours 12/20/19 12/21/19 12/22/19 23:59 23:59 23:59 Intake Total 1002 / 1002 50 / 50 Balance 1002 / 1002 50 / 50 Laboratory Results 12/21/19 15:05: WBC 9.6, RBC 3.39 L, Hgb 10.4 L, Hct 32.0 L, MCV 94.4, MCH 30.7, MCHC 32.5, RDW Std Deviation 46.5 H, RDW Coeff of Angela 13.8, Plt Count 138 L, MPV 11.1, Immature Gran % (Auto) 0.700, Neut % (Auto) 76.5 H, Lymph % (Auto) 12.9 L, Benton % (Auto) 6.7, Eos % (Auto) 2.9, Baso % (Auto) 0.3, Absolute Neuts (auto) 7.4, Absolute Lymphs (auto) 1.24, Nucleated RBC % 0 12/21/19 15:05: Sodium 138, Potassium 3.0 L, Chloride 105, Carbon Dioxide 27.0, Anion Gap 6, BUN 37 H, Creatinine 2.79 H, Estim Creat Clear Calc 19.21, Est GFR (MDRD) Af Amer 23 L, Est GFR (MDRD) Non-Af 19 L, BUN/Creatinine Ratio 13.3, Glucose 370 H, Calcium 8.0 L, Total Bilirubin 0.30, AST 44 H, ALT 37, Alkaline Phosphatase 407 H, Total Protein 6.9, Albumin 2.5 L, Globulin 4.4 H, Albumin/Globulin Ratio 0.6 L 12/21/19 15:05: Lactic Acid 0.8 12/21/19 22:00: POC Glucose 328 H 12/22/19 02:25: COVID-19 ([facility]) Pending 12/22/19 06:52: WBC 9.2, RBC 3.18 L, Hgb 9.9 L, Hct 30.7 L, MCV 96.5, MCH 31.1, MCHC 32.2, RDW Std Deviation 49.1 H, RDW Coeff of Angela 13.9, Plt Count 148 L, MPV 11.1, Immature Gran % (Auto) 1.000 H, Neut % (Auto) 68.6, Lymph % (Auto) 17.3 L, Benton % (Auto) 9.5, Eos % (Auto) 3.4, Baso % (Auto) 0.2, Absolute Neuts (auto) 6.3, Absolute Lymphs (auto) 1.58, Nucleated RBC % 0 12/22/19 06:52: Sodium 135 L, Potassium 3.4 L, Chloride 100, Carbon Dioxide 23.0, Anion Gap 12, BUN 39 H, Creatinine 3.28 H, Estim Creat Clear Calc 16.34, Est GFR (MDRD) Af Amer 19 L, Est GFR (MDRD) Non-Af 15 L, BUN/Creatinine Ratio 11.9, Glucose 312 H, Calcium 7.5 L, TSH 11.50 H 12/22/19 06:52: PT 13.6, INR 1.1, APTT 27.2 12/22/19 06:52: Hemoglobin A1c 7.7 H 12/22/19 06:52: Free T4 0.97 12/22/19 08:19: POC Glucose 298 H Current Medications Acetaminophen (Tylenol) 650 mg PO Q6H PRN PRN PRN Reason: Pain Score 1-10/Temp > 100.7 F Last Admin: 12/22/19 08:15 Dose: 650 mg Documented by: Amlodipine Besylate (Norvasc) 10 mg PO DAILY [facility] Aspirin (Ecotrin) 81 mg PO DAILYCM [facility] Bupropion HCl (Wellbutrin Xl) 300 mg PO DAILY [facility] Calcitriol (Rocaltrol) 0.25 mcg PO DAILY [facility] Calcium Acetate (Phoslo Gel Cap) 1,334 mg PO TIDCM [facility] Carvedilol (Coreg) 6.25 mg PO BID [facility] Last Admin: 12/21/19 23:39 Dose: 6.25 mg Documented by: Citalopram Hydrobromide (Celexa) 40 mg PO DAILY [facility] Dextrose (D50w Syringe) 0 gm IV X1 PRN; Protocol PRN Reason: Hypoglycemia Duloxetine HCl (Cymbalta) 60 mg PO DAILY [facility] Enoxaparin Sodium (Lovenox) 40 mg SC DAILY [facility] Furosemide (Lasix) 80 mg PO DAILY [facility] Gabapentin (Neurontin) 900 mg PO TIDCM [facility] Last Admin: 12/21/19 23:39 Dose: 900 mg Documented by: Glucagon () 1 mg IM .X1 PRN PRN Reason: Hypoglycemia Piperacillin Sod/Tazobactam (Sod 3.375 gm/ Sodium Chloride) 50 mls @ 12.5 mls/hr IV Q12 [facility] Last Infusion: 12/22/19 03:39 Dose: Infused Documented by: Vancomycin IV Pharmacy to Dose (1 ea/ Sodium Chloride) 500 mls @ 250 mls/hr IV PRN PRN; Protocol PRN Reason: Rx to Dose Sodium Chloride () 250 mls @ 15 mls/hr IV .[id number] PRN PRN Reason: Saline Flush Insulin Glargine (Lantus ([facility])) 60 units SC QHS [facility] Last Admin: 12/21/19 22:01 Dose: 60 units Documented by: Insulin Human Lispro (Humalog Kwikpen ([facility])) 28 unit SC TIDAC [facility] Insulin Human Lispro (Humalog Kwikpen ([facility])) 0 unit SC TIDAC [facility]; Protocol Last Admin: 12/22/19 08:23 Dose: 4 u Documented by: Levothyroxine Sodium (Synthroid) 200 mcg PO DAILY@0600 [facility] Last Admin: 12/22/19 05:13 Dose: Not Given Documented by: Losartan Potassium (Cozaar) 50 mg PO DAILY [facility] Nitroglycerin (Nitrostat) 0.4 mg SUBLINGUAL UD PRN PRN Reason: chest pain Ondansetron HCl (Zofran) 4 mg IV Q8H PRN PRN PRN Reason: NAUSEA/VOMITING Last Admin: 12/21/19 23:38 Dose: 4 mg Documented by: Oxycodone HCl (Oxyir) 5 mg PO Q4H PRN PRN PRN Reason: Pain Score 4-5/10 Last Admin: 12/21/19 23:38 Dose: 5 mg Documented by: Oxycodone HCl (Oxyir) 10 mg PO Q4H PRN PRN PRN Reason: Pain Score 6-10/10 Last Admin: 12/22/19 03:39 Dose: 10 mg Documented by: Promethazine HCl (Phenergan Tablet) 25 mg PO Q8H PRN PRN PRN Reason: NAUSEA Last Admin: 12/21/19 21:55 Dose: 25 mg Documented by: Sodium Chloride () 10 - 40 ml IV UD PRN PRN Reason: SALINE FLUSH Last Admin: 12/22/19 08:15 Dose: 10 ml Documented by: STROKE Vital Signs/Narrative: Vital Signs Pulse Resp BP Pulse Ox 12/22/19 09:27 78 14 106/89 H 99 Assessment/Plan Hospitalist note: I am seeing this patient in conjunction with Travis Salguero. I independently seen and examined the patient. Progress note above, laboratory data and imaging studies reviewed and I concur with above treatment plan. She complains of left middle finger pain and redness. Denied fever chills. Denied chest pain or shortness of breath. Currently, she is on hemodialysis. Her vital signs are stable. - Physical Exam General: Alert, Oriented x3, Cooperative, No apparent distress. HEENT: Atraumatic, PERRLA, EOMI. Neck: Supple, No JVD, Negative Carotid Bruits, Trachea Midline, Thyroid Normal. Lungs: Diminished breath sounds bilateral, otherwise clear, no rhonchi, No wheeze, No rales. Cardiovascular: Regular rate, Regular Rhythm, Normal S1, Normal S2, PMI Normal. Abdomen: Bowel Sounds Present, Soft, Non Tender, Non-Distended, No Hepato- splenomegaly. Extremities: No clubbing, No cyanosis, No edema Skin: No rashes, No breakdown Neurological: Cranial nerves are intact, neuro grossly intact Vital Signs are stable. Assessment and plan: #1 acute left middle finger cellulitis: She is on IV vancomycin and Zosyn. She has been afebrile, no leukocytosis. Blood cultures pending. MRI reveals no evidence of osteomyelitis or abscess. Dr. Sloan was consulted, awaiting recommendations. Plan to continue IV antibiotics, monitor blood culture. #2 ESRD on hemodialysis: Currently, she is on hemodialysis, nephrology consulted. #3 hypothyroidism: She is on very high dose of levothyroxine. TSH elevated at 11.5. Recommend to repeat TSH in 2 weeks. #4 other chronic medical problems: Stable, continue current medications as above. This note was generated with [employer] dictation software. It may contain incorrect words, spelling, and punctuation that were not noted in checking the note before signing. Inpatient E&M: 79410 Subs Hosp L2
--- NOTE | 2019-12-22 12:16 | PCM.CONS.GEN ---
Reason for Consult Date of Consultation: 12/22/19 Reason for Consultation: Left long finger tip infection. REFERRING PHYSICIAN: Dr. Vivar. CRIME VICTIM SPECIALIST: Dr. Sloan. History of Present Illness: The patient is a 59 year old F was recently admitted with increasing redness and swelling in her left long finger tip that started about 3 days ago. She denies trauma. She first noticed it as a blister. When the weather gets cold, she does get increased pain in her finger tips. She has a history of diabetes mellitus and ESRD for which she gets dialysis on Wednesday, Wednesday, and Wednesday. She is also a smoker. WBC on admission was normal at 9.6. HgbA1c was 7.7. She was given Unasyn in the ED and started on Vancomycin and Zosyn on the floor. Hand x-ray was done which showed diffuse soft tissue swelling involving the third digit. MRI was also done which showed no demonstrated osteomyelitis or abscess. I was asked to evaluate this patient for surgical options for treatment. Past Medical History Past Medical History (Chronic Problems): Chronic Problems (Last Updated 12/21/19 @ 19:[address] Homar Vivar DO) Hypertension (Chronic) Type 2 diabetes mellitus (Chronic) Hypothyroidism (Chronic) ESRD on hemodialysis (Chronic) Tobacco abuse (Chronic) Medical History: Medical History (Last Updated 12/21/19 @ 19:[address] Homar Vivar DO) Breast cancer C50.919 CAD (coronary artery disease) I25.10 DM2 (diabetes mellitus, type 2) E11.9 ESRD (end stage renal disease) N18.6 Hypothyroidism E03.9 VTE (venous thromboembolism) I82.90 Chronic pain G89.29 HTN (hypertension) I10 Allergies codeine phosphate [From Tylenol-Codeine #3] Allergy (Verified 08/13/19 15:48) Swelling simvastatin [From Zocor] Allergy (Verified 08/13/19 15:48) Other Home Medications: Ambulatory Orders Medication Instructions Recorded Insulin Aspart [Novolog Flexpen] 28 units SC TIDCM 05/14/13 proMETHazine tablet [Phenergan 25 mg PO Q8H PRN PRN 05/14/13 tablet] Carvedilol 6.25 mg PO BID 08/13/19 Duloxetine HCl 60 mg PO DAILY 08/13/19 Acetaminophen [Tylenol Extra 1,000 mg PO Q6H PRN PRN 12/21/19 Strength] Amlodipine [Norvasc] 10 mg PO DAILY 12/21/19 Aspirin E.C. [Ecotrin] 81 mg PO DAILY@0800 12/21/19 Bupropion HCl [Bupropion Xl] 300 mg PO DAILY 12/21/19 Calcitriol [Rocaltrol] 0.25 mcg PO DAILY 12/21/19 Calcium Acetate [Phoslo Gel Cap] 1,334 mg PO TIDCM 12/21/19 Insulin Detemir [Levemir Flextouch] 60 unit SQ QHS 12/21/19 Levothyroxine Sodium [Synthroid] 200 mcg PO DAILY 12/21/19 Nitroglycerin [Nitrostat] 0.4 mg SL Q5M PRN 12/21/19 Amoxicillin/Potassium Clav 1 ea PO DAILY #7 tab 12/24/19 [Augmentin 500-125 Tablet] Doxycycline [Vibramycin] 100 mg PO BID #14 cap 12/24/19 Gabapentin [Neurontin] 300 mg PO TID #0 12/24/19 Surgical History: noncontributory, - - Status post right mastectomy Psychiatric History: No pertinent psych hx Smoking Status: Current every day smoker Tobacco Use: Cigarettes - *Family History Maternal History Items: Heart Disease Paternal History Items: Heart Disease Review of Systems Comment: Constitutional: Denies: Anorexia, Chills, Fever, Night Sweats. Eyes: Denies: Blurred vision, Double vision. HEENT: Denies: Head Aches, Sinus Congestion, Sinus Drainage. Cardiovascular: Denies: Chest Pain, Palpitations. Respiratory: Denies: Cough, Shortness of breath at rest, Sputum production. Gastrointestinal: Denies: Abdominal Pain, Nausea, Vomiting. Genitourinary: Denies: Dysuria. Musculoskeletal: Reports: - - Pain in left long finger and hand. Skin: Reports: -. Neurological: Denies: Numbness, Tingling, Focal weakness. Psychiatric: Denies: Anxiety, Depression. Hematologic/ Lymphatic: Reports: Hx of blood clot. Denies: Easy Bruising, Easy Bleeding Patient Problems: Active and Suspected Problems (Last Updated 12/21/19 @ 19:[address] Homar Vivar, DO) Pressure injury of upper extremity, unstageable (Acute) left long finger tip Cellulitis of left middle finger (Acute) - Physical Exam Vitals/I&O's: General: Alert, No apparent distress. HEENT: PERRL. EOMI. Neck: Supple, nontender. No cervical adenopathy. Lungs: Clear to auscultation. Cardiovascular: Regular rate, Regular Rhythm. Abdomen: Soft, Non-Distended. Extremities: On the left hand involving the long finger, there is some blistering and some redness at the tip extending proximally onto the middle phalanx. The blistering is noted on the volar side. Minimal swelling seen. Localized tenderness at the tip of the finger. The volar side is soft and nontender. She can make a fist. Flexing the fingers are nontender. Passively extending the fingers are nontender. Does have decreased sensation at the finger tipis. Radial pulses are palpable. Fingers are warm. Decreased capillary refill. No axillary adenopathy. No evidence of acute tenosynovitis. Could be a pressure type injury versus a vascular issue versus an autoimmune issue. Neuro: CN II-XII grossly intact. Psych/Mental Status: Normal Affect, Appropriate Vital Signs Temp Pulse Resp BP Pulse Ox 98.8 F 78 14 106/89 H 99 12/22/19 08:28 12/22/19 09:27 12/22/19 09:27 12/22/19 09:27 12/22/19 09:27 Oxygen Flow Rate (L/min) 3 Oxygen Delivery Method Nasal Cannula Weight: 254 lb 13.67 oz Body Mass Index (BMI) 43.8 Intake and Output for Last 24 Hours 12/20/19 12/21/19 12/22/19 23:59 23:59 23:59 Intake Total 1001 / 1001 50 / 50 Balance 1001 / 1001 50 / 50 Laboratory Results 12/21/19 15:05: WBC 9.6, RBC 3.39 L, Hgb 10.4 L, Hct 32.0 L, MCV 94.4, MCH 30.7, MCHC 32.5, RDW Std Deviation 46.5 H, RDW Coeff of Angela 13.8, Plt Count 138 L, MPV 11.1, Immature Gran % (Auto) 0.700, Neut % (Auto) 76.5 H, Lymph % (Auto) 12.9 L, [place] % (Auto) 6.7, Eos % (Auto) 2.9, Baso % (Auto) 0.3, Absolute Neuts (auto) 7.4, Absolute Lymphs (auto) 1.24, Nucleated RBC % 0 12/21/19 15:05: Sodium 138, Potassium 3.0 L, Chloride 105, Carbon Dioxide 27.0, Anion Gap 6, BUN 37 H, Creatinine 2.79 H, Estim Creat Clear Calc 19.21, Est GFR (MDRD) Af Amer 23 L, Est GFR (MDRD) Non-Af 19 L, BUN/Creatinine Ratio 13.3, Glucose 370 H, Calcium 8.0 L, Total Bilirubin 0.30, AST 44 H, ALT 37, Alkaline Phosphatase 407 H, Total Protein 6.9, Albumin 2.5 L, Globulin 4.4 H, Albumin/Globulin Ratio 0.6 L 12/21/19 15:05: Lactic Acid 0.8 12/21/19 22:00: POC Glucose 328 H 12/22/19 02:25: COVID-19 ([facility]) Pending 12/22/19 06:52: WBC 9.2, RBC 3.18 L, Hgb 9.9 L, Hct 30.7 L, MCV 96.5, MCH 31.1, MCHC 32.2, RDW Std Deviation 49.1 H, RDW Coeff of Angela 13.9, Plt Count 148 L, MPV 11.1, Immature Gran % (Auto) 1.000 H, Neut % (Auto) 68.6, Lymph % (Auto) 17.3 L, [place] % (Auto) 9.5, Eos % (Auto) 3.4, Baso % (Auto) 0.2, Absolute Neuts (auto) 6.3, Absolute Lymphs (auto) 1.58, Nucleated RBC % 0 12/22/19 06:52: Sodium 135 L, Potassium 3.4 L, Chloride 100, Carbon Dioxide 23.0, Anion Gap 12, BUN 39 H, Creatinine 3.28 H, Estim Creat Clear Calc 16.34, Est GFR (MDRD) Af Amer 19 L, Est GFR (MDRD) Non-Af 15 L, BUN/Creatinine Ratio 11.9, Glucose 312 H, Calcium 7.5 L, TSH 11.50 H 12/22/19 06:52: PT 13.6, INR 1.1, APTT 27.2 12/22/19 06:52: Hemoglobin A1c 7.7 H 12/22/19 06:52: Free T4 0.97 12/22/19 08:19: POC Glucose 298 H Diagnostic Data Hand X-Ray 12/21/19 14:20 IMPRESSION: Diffuse soft tissue swelling involving the third digit. Electronically Signed: Georges Shayy, at 14:31 EDT , Service support , Upper Extremity MRI 12/22/19 06:00 IMPRESSION: Edema in the subcutis adipose space of the third finger. No demonstrated osteomyelitis or abscess. Electronically Signed: Kt Dent MD at 9:32 EDT Tel , Service support , Current Medications Acetaminophen (Tylenol) 650 mg PO Q6H PRN PRN PRN Reason: Pain Score 1-10/Temp > 100.7 F Last Admin: 12/22/19 08:15 Dose: 650 mg Documented by: Amlodipine Besylate (Norvasc) 10 mg PO DAILY [facility] Aspirin (Ecotrin) 81 mg PO DAILYCM [facility] Bupropion HCl (Wellbutrin Xl) 300 mg PO DAILY [facility] Calcitriol (Rocaltrol) 0.25 mcg PO DAILY [facility] Calcium Acetate (Phoslo Gel Cap) 1,334 mg PO TIDCM [facility] Carvedilol (Coreg) 6.25 mg PO BID [facility] Last Admin: 12/21/19 23:39 Dose: 6.25 mg Documented by: Citalopram Hydrobromide (Celexa) 40 mg PO DAILY [facility] Dextrose (D50w Syringe) 0 gm IV X1 PRN; Protocol PRN Reason: Hypoglycemia Duloxetine HCl (Cymbalta) 60 mg PO DAILY [facility] Enoxaparin Sodium (Lovenox) 40 mg SC DAILY [facility] Furosemide (Lasix) 80 mg PO DAILY [facility] Gabapentin (Neurontin) 900 mg PO TIDCM [facility] Last Admin: 12/21/19 23:39 Dose: 900 mg Documented by: Glucagon () 1 mg IM .X1 PRN PRN Reason: Hypoglycemia Piperacillin Sod/Tazobactam (Sod 3.375 gm/ Sodium Chloride) 50 mls @ 12.5 mls/hr IV Q12 [facility] Last Infusion: 12/22/19 03:39 Dose: Infused Documented by: Vancomycin IV Pharmacy to Dose (1 ea/ Sodium Chloride) 500 mls @ 250 mls/hr IV PRN PRN; Protocol PRN Reason: Rx to Dose Sodium Chloride () 250 mls @ 15 mls/hr IV .[id number] PRN PRN Reason: Saline Flush Insulin Glargine (Lantus (Bkc)) 60 units SC QHS [facility] Last Admin: 12/21/19 22:01 Dose: 60 units Documented by: Insulin Human Lispro (Humalog Kwikpen (Bkc)) 28 unit SC TIDAC [facility] Insulin Human Lispro (Humalog Kwikpen (Bkc)) 0 unit SC TIDAC [facility]; Protocol Last Admin: 12/22/19 08:23 Dose: 4 u Documented by: Levothyroxine Sodium (Synthroid) 200 mcg PO DAILY@0600 [facility] Last Admin: 12/22/19 05:13 Dose: Not Given Documented by: Losartan Potassium (Cozaar) 50 mg PO DAILY [facility] Nitroglycerin (Nitrostat) 0.4 mg SUBLINGUAL UD PRN PRN Reason: chest pain Ondansetron HCl (Zofran) 4 mg IV Q8H PRN PRN PRN Reason: NAUSEA/VOMITING Last Admin: 12/21/19 23:38 Dose: 4 mg Documented by: Oxycodone HCl (Oxyir) 5 mg PO Q4H PRN PRN PRN Reason: Pain Score 4-5/10 Last Admin: 12/21/19 23:38 Dose: 5 mg Documented by: Oxycodone HCl (Oxyir) 10 mg PO Q4H PRN PRN PRN Reason: Pain Score 6-10/10 Last Admin: 12/22/19 03:39 Dose: 10 mg Documented by: Promethazine HCl (Phenergan Tablet) 25 mg PO Q8H PRN PRN PRN Reason: NAUSEA Last Admin: 12/21/19 21:55 Dose: 25 mg Documented by: Sodium Chloride () 10 - 40 ml IV UD PRN PRN Reason: SALINE FLUSH Last Admin: 12/22/19 08:15 Dose: 10 ml Documented by: Assessment/Plan All Active Problems (Last Updated 12/21/19 @ 19:[address] Homar Vivar, DO) Pressure injury of upper extremity, unstageable (Acute) Cellulitis of left middle finger (Acute) 1. Left long finger tip pressure injury infection with blistering and cellulitis. 2. Diabetes mellitus. 3. ESRD on dialysis. 4. Smoker. Continue IV antibiotics with Vancomycin and Zosyn. Hand x-ray reviewed. MRI reviewed. No clinical evidence of tenosynovitis. There is no urgent need for surgical intervention at this time. Will monitor the left finger tip closely. If the infection spreads more proximally despite IV antibiotics, then would need operative intervention and debridement including a partial ostectomy to evaluate for osteomyelitis. If surgery is necessary, would leave the wound open and start daily Silver dressing changes. If a wound is created after surgical debridement, I anticipate a prolonged healing process. Could be a pressure injury type infection. Ultimately may need an amputation. Patient voices understanding. Could be a vascular issue. Would benefit from noninvasive arterial doppler studies. She is at risk for having vascular issues in her finger tips including diabetes mellitus, ESRD on dialysis, and smoking. Her medical co-morbidities decrease her immune system so an autoimmune process could be present, such as scleroderma or Raynaud's. HgbA1c was 7.7. Patient was informed of the risks and complications of the procedure including alternatives to surgery. These were discussed with the patient personally. Patient voices understanding and wishes to proceed with the current plan of IV antibiotics. She is aware that surgery may be necessary. If no surgery is done during this admission, she will see me weekly in the office to closely monitor for any changes that would necessitate operative intervention. If the infection does not spread more proximally and doesn't resolve with IV antibiotics, she would still need operative debridement. Ideally would like to stabilize the finger enough that if an amputation is done, it can be done as distally as possible. Encouraged patient to stop smoking as it may have deleterious effects on wound healing. Inpatient E&M: 34416 Init Hosp L2 - ICD-10 - L03.012, L89.890, E11.9, N18.6, F17.200
[2019-12-22] MEDS: oxyCODONE 5 MG Tablet PO (12:58)
[2019-12-22 13:06] LABS: Bedside Glucose 149 mg/dL (70-110)
--- NOTE | 2019-12-22 13:29 | PCM.CONS.R ---
Problem List (1) ESRD on hemodialysis Status: Chronic Consultation - Renal 12/22/19 PCP/ Referring MD: Requesting physician: [] Primary care physician: Dr. Iban Eldridge MD Reason for Consultation:: ESRD - History of Present Illness History of Present Illness: The patient is a 59 year old F ESRD on HD MWF schedule. admitted with left middle finger infection. no issues with dialysis, does not remember local injury, no fevers or chills - Allergies Allergies: Allergies codeine phosphate [From Tylenol-Codeine #3] Allergy (Verified 08/13/19 15:48) Swelling simvastatin [From Zocor] Allergy (Verified 08/13/19 15:48) Other - Current Medications Current Medications: Current Medications Acetaminophen (Tylenol) 650 mg PO Q6H PRN PRN PRN Reason: Pain Score 1-10/Temp > 100.7 F Last Admin: 12/22/19 08:15 Dose: 650 mg Documented by: Amlodipine Besylate (Norvasc) 10 mg PO DAILY [facility] Aspirin (Ecotrin) 81 mg PO DAILYCM [facility] Bupropion HCl (Wellbutrin Xl) 300 mg PO DAILY [facility] Calcitriol (Rocaltrol) 0.25 mcg PO DAILY [facility] Calcium Acetate (Phoslo Gel Cap) 1,334 mg PO TIDCM [facility] Carvedilol (Coreg) 6.25 mg PO BID [facility] Last Admin: 12/21/19 23:39 Dose: 6.25 mg Documented by: Citalopram Hydrobromide (Celexa) 40 mg PO DAILY [facility] Dextrose (D50w Syringe) 0 gm IV X1 PRN; Protocol PRN Reason: Hypoglycemia Duloxetine HCl (Cymbalta) 60 mg PO DAILY [facility] Enoxaparin Sodium (Lovenox) 30 mg SC DAILY [facility] Furosemide (Lasix) 80 mg PO DAILY [facility] Gabapentin (Neurontin) 900 mg PO TIDCM [facility] Last Admin: 12/21/19 23:39 Dose: 900 mg Documented by: Glucagon () 1 mg IM .X1 PRN PRN Reason: Hypoglycemia Piperacillin Sod/Tazobactam (Sod 3.375 gm/ Sodium Chloride) 50 mls @ 12.5 mls/hr IV Q12 [facility] Last Infusion: 12/22/19 03:39 Dose: Infused Documented by: Vancomycin IV Pharmacy to Dose (1 ea/ Sodium Chloride) 500 mls @ 250 mls/hr IV PRN PRN; Protocol PRN Reason: Rx to Dose Sodium Chloride () 250 mls @ 15 mls/hr IV .[id number] PRN PRN Reason: Saline Flush Insulin Glargine (Lantus (Bkc)) 60 units SC QHS [facility] Last Admin: 12/21/19 22:01 Dose: 60 units Documented by: Insulin Human Lispro (Humalog Kwikpen (Bkc)) 28 unit SC TIDAC [facility] Insulin Human Lispro (Humalog Kwikpen (Bkc)) 0 unit SC TIDAC [facility]; Protocol Last Admin: 12/22/19 08:23 Dose: 4 u Documented by: Levothyroxine Sodium (Synthroid) 200 mcg PO DAILY@0600 [facility] Last Admin: 12/22/19 05:13 Dose: Not Given Documented by: Losartan Potassium (Cozaar) 50 mg PO DAILY [facility] Nitroglycerin (Nitrostat) 0.4 mg SUBLINGUAL UD PRN PRN Reason: chest pain Ondansetron HCl (Zofran) 4 mg IV Q8H PRN PRN PRN Reason: NAUSEA/VOMITING Last Admin: 12/21/19 23:38 Dose: 4 mg Documented by: Oxycodone HCl (Oxyir) 5 mg PO Q4H PRN PRN PRN Reason: Pain Score 4-5/10 Last Admin: 12/22/19 12:58 Dose: 5 mg Documented by: Oxycodone HCl (Oxyir) 10 mg PO Q4H PRN PRN PRN Reason: Pain Score 6-10/10 Last Admin: 12/22/19 03:39 Dose: 10 mg Documented by: Promethazine HCl (Phenergan Tablet) 25 mg PO Q8H PRN PRN PRN Reason: NAUSEA Last Admin: 12/21/19 21:55 Dose: 25 mg Documented by: Sodium Chloride () 10 - 40 ml IV UD PRN PRN Reason: SALINE FLUSH Last Admin: 12/22/19 08:15 Dose: 10 ml Documented by: - Past Medical History Past Medical History (Chronic Problems): Chronic Problems (Last Updated 12/21/19 @ 19:[address] Homar Vivar DO) Hypertension (Chronic) Type 2 diabetes mellitus (Chronic) Hypothyroidism (Chronic) ESRD on hemodialysis (Chronic) Tobacco abuse (Chronic) - Past Surgical History Surgical History: noncontributory, - - Status post right mastectomy - Social History Smoking Status: Current every day smoker - Family History Maternal History Items: Heart Disease Paternal History Items: Heart Disease Review of Systems Constitutional: Denies: Chills, Fever, Weight Change HEENT: Denies: Head Aches, Sinus Congestion, Sinus Drainage Cardiovascular: Denies: Chest Pain, Palpitations Respiratory: Denies: Cough, Shortness of breath at rest, Sputum production Gastrointestinal: Denies: Abdominal Pain, Nausea, Vomiting Genitourinary: Denies: Dysuria Musculoskeletal: Denies: Joint Pain, Joint Tenderness Skin: Denies: Rash, Wounds Neurological: Denies: Numbness, Tingling, Focal weakness Psychiatric: Denies: Anxiety, Depression, Homicidal Ideations, Suicidal Ideations Hematologic/ Lymphatic: Denies: Easy Bruising, Easy Bleeding Patient Problems: Active and Suspected Problems (Last Updated 12/21/19 @ 19:[address] Homar Vivar, DO) Cellulitis of left middle finger (Acute) - Physical Exam Vitals/I&O's: Vital Signs Temp Pulse Resp BP Pulse Ox 98.8 F 78 14 106/89 H 99 12/22/19 08:28 12/22/19 09:27 12/22/19 09:27 12/22/19 09:27 12/22/19 09:27 Oxygen Flow Rate (L/min) 3 Oxygen Delivery Method Nasal Cannula Weight: 115.6 kg Body Mass Index (BMI) 43.8 Intake and Output for Last 24 Hours 12/20/19 12/21/19 12/22/19 23:59 23:59 23:59 Intake Total 1002 / 1002 50 / 50 Balance 1001 / 1002 50 / 50 General: Alert, Oriented x3, Cooperative HEENT: Atraumatic, PERRLA, EOMI, Normocephalic Neck: Supple, No JVD, Negative Carotid Bruits Lungs: Clear to auscultation, Normal air movement Cardiovascular: Regular rate, No murmurs Abdomen: Bowel Sounds Present, Soft, Non Tender Extremities: No edema, Capillary Refill Less than 3 Seconds Skin: No rashes, No breakdown Musculoskeletal: No Tenderness to Palpation of Joints or Extremities Neurological: Cranial nerves II-XII grossly intact Psych/Mental Status: Normal Affect, Appropriate Comment: left middle finger with yellow colored fluid collection Laboratory Results 12/21/19 15:05: WBC 9.6, RBC 3.39 L, Hgb 10.4 L, Hct 32.0 L, MCV 94.4, MCH 30.7, MCHC 32.5, RDW Std Deviation 46.5 H, RDW Coeff of Angela 13.8, Plt Count 138 L, MPV 11.1, Immature Gran % (Auto) 0.700, Neut % (Auto) 76.5 H, Lymph % (Auto) 12.9 L, [place] % (Auto) 6.7, Eos % (Auto) 2.9, Baso % (Auto) 0.3, Absolute Neuts (auto) 7.4, Absolute Lymphs (auto) 1.24, Nucleated RBC % 0 12/21/19 15:05: Sodium 138, Potassium 3.0 L, Chloride 105, Carbon Dioxide 27.0, Anion Gap 6, BUN 37 H, Creatinine 2.79 H, Estim Creat Clear Calc 19.21, Est GFR (MDRD) Af Amer 23 L, Est GFR (MDRD) Non-Af 19 L, BUN/Creatinine Ratio 13.3, Glucose 370 H, Calcium 8.0 L, Total Bilirubin 0.30, AST 44 H, ALT 37, Alkaline Phosphatase 407 H, Total Protein 6.9, Albumin 2.5 L, Globulin 4.4 H, Albumin/Globulin Ratio 0.6 L 12/21/19 15:05: Lactic Acid 0.8 12/21/19 22:00: POC Glucose 328 H 12/22/19 02:25: COVID-19 ([facility]) Pending 12/22/19 06:52: WBC 9.2, RBC 3.18 L, Hgb 9.9 L, Hct 30.7 L, MCV 96.5, MCH 31.1, MCHC 32.2, RDW Std Deviation 49.1 H, RDW Coeff of Angela 13.9, Plt Count 148 L, MPV 11.1, Immature Gran % (Auto) 1.000 H, Neut % (Auto) 68.6, Lymph % (Auto) 17.3 L, [place] % (Auto) 9.5, Eos % (Auto) 3.4, Baso % (Auto) 0.2, Absolute Neuts (auto) 6.3, Absolute Lymphs (auto) 1.58, Nucleated RBC % 0 12/22/19 06:52: Sodium 135 L, Potassium 3.4 L, Chloride 100, Carbon Dioxide 23.0, Anion Gap 12, BUN 39 H, Creatinine 3.28 H, Estim Creat Clear Calc 16.34, Est GFR (MDRD) Af Amer 19 L, Est GFR (MDRD) Non-Af 15 L, BUN/Creatinine Ratio 11.9, Glucose 312 H, Calcium 7.5 L, TSH 11.50 H 12/22/19 06:52: PT 13.6, INR 1.1, APTT 27.2 12/22/19 06:52: Hemoglobin A1c 7.7 H 12/22/19 06:52: Free T4 0.97 12/22/19 08:19: POC Glucose 298 H 12/22/19 12:57: POC Glucose 149 H Current Medications Acetaminophen (Tylenol) 650 mg PO Q6H PRN PRN PRN Reason: Pain Score 1-10/Temp > 100.7 F Last Admin: 12/22/19 08:15 Dose: 650 mg Documented by: Amlodipine Besylate (Norvasc) 10 mg PO DAILY [facility] Aspirin (Ecotrin) 81 mg PO DAILYCM [facility] Bupropion HCl (Wellbutrin Xl) 300 mg PO DAILY [facility] Calcitriol (Rocaltrol) 0.25 mcg PO DAILY [facility] Calcium Acetate (Phoslo Gel Cap) 1,334 mg PO TIDCM [facility] Carvedilol (Coreg) 6.25 mg PO BID [facility] Last Admin: 12/21/19 23:39 Dose: 6.25 mg Documented by: Citalopram Hydrobromide (Celexa) 40 mg PO DAILY [facility] Dextrose (D50w Syringe) 0 gm IV X1 PRN; Protocol PRN Reason: Hypoglycemia Duloxetine HCl (Cymbalta) 60 mg PO DAILY [facility] Enoxaparin Sodium (Lovenox) 30 mg SC DAILY [facility] Furosemide (Lasix) 80 mg PO DAILY [facility] Gabapentin (Neurontin) 900 mg PO TIDCM [facility] Last Admin: 12/21/19 23:39 Dose: 900 mg Documented by: Glucagon () 1 mg IM .X1 PRN PRN Reason: Hypoglycemia Piperacillin Sod/Tazobactam (Sod 3.375 gm/ Sodium Chloride) 50 mls @ 12.5 mls/hr IV Q12 [facility] Last Infusion: 12/22/19 03:39 Dose: Infused Documented by: Vancomycin IV Pharmacy to Dose (1 ea/ Sodium Chloride) 500 mls @ 250 mls/hr IV PRN PRN; Protocol PRN Reason: Rx to Dose Sodium Chloride () 250 mls @ 15 mls/hr IV .[id number] PRN PRN Reason: Saline Flush Insulin Glargine (Lantus (Bkc)) 60 units SC QHS [facility] Last Admin: 12/21/19 22:01 Dose: 60 units Documented by: Insulin Human Lispro (Humalog Kwikpen (Bkc)) 28 unit SC TIDAC [facility] Insulin Human Lispro (Humalog Kwikpen (Bkc)) 0 unit SC TIDAC [facility]; Protocol Last Admin: 12/22/19 08:23 Dose: 4 u Documented by: Levothyroxine Sodium (Synthroid) 200 mcg PO DAILY@0600 [facility] Last Admin: 12/22/19 05:13 Dose: Not Given Documented by: Losartan Potassium (Cozaar) 50 mg PO DAILY [facility] Nitroglycerin (Nitrostat) 0.4 mg SUBLINGUAL UD PRN PRN Reason: chest pain Ondansetron HCl (Zofran) 4 mg IV Q8H PRN PRN PRN Reason: NAUSEA/VOMITING Last Admin: 12/21/19 23:38 Dose: 4 mg Documented by: Oxycodone HCl (Oxyir) 5 mg PO Q4H PRN PRN PRN Reason: Pain Score 4-5/10 Last Admin: 12/22/19 12:58 Dose: 5 mg Documented by: Oxycodone HCl (Oxyir) 10 mg PO Q4H PRN PRN PRN Reason: Pain Score 6-10/10 Last Admin: 12/22/19 03:39 Dose: 10 mg Documented by: Promethazine HCl (Phenergan Tablet) 25 mg PO Q8H PRN PRN PRN Reason: NAUSEA Last Admin: 12/21/19 21:55 Dose: 25 mg Documented by: Sodium Chloride () 10 - 40 ml IV UD PRN PRN Reason: SALINE FLUSH Last Admin: 12/22/19 08:15 Dose: 10 ml Documented by: Assessment/Plan All Active Problems (Last Updated 12/21/19 @ 19:[address] Homar Vivar, DO) Cellulitis of left middle finger (Acute) ESRD. HD today. seen on HD today anemia. gets long acting KANDI with HD Left middle finger cellulitis vs abscess. surgery on consult
--- NOTE | 2019-12-22 13:50 | NURSING ---
Dialysis complete. 2300cc removed.
[2019-12-22] MEDS: Insulin Lispro 100 UNIT/ML INSULN.PEN 28 UNIT SC ×2 (14:11→17:01)
[2019-12-22] MEDS: Gabapentin 300 MG Capsule 900 MG PO ×2 (14:13→17:11)
[2019-12-22] MEDS: buPROPion (XL) 150 MG TABLET.XL 300 MG PO (14:14)
[2019-12-22] MEDS: Citalopram 20 MG Tablet 40 MG PO (14:14)
[2019-12-22] MEDS: Carvedilol 6.25 MG Tablet PO ×2 (14:14→21:21)
[2019-12-22] MEDS: Calcium Acetate 667 MG Capsule 1334 MG PO ×2 (14:15→17:10)
[2019-12-22] MEDS: DULoxetine Hcl 60 MG Capsule PO (14:15)
[2019-12-22] MEDS: Losartan Potassium 50 MG Tablet PO (14:15)
[2019-12-22] MEDS: Aspirin E.C. 81 MG Tablet PO (14:15)
--- NOTE | 2019-12-22 14:15 | NURSING ---
All medications given after dialysis completed.
[2019-12-22] MEDS: Calcitriol 0.25 MCG Capsule PO (14:16)
[2019-12-22] MEDS: amLODIPine 10 MG Tablet PO (14:19)
[2019-12-22] MEDS: Furosemide 80 MG Tablet PO (14:19)
[2019-12-22] MEDS: Enoxaparin 30 MG/0.3 ML Syringe SC (14:23)
[2019-12-22 14:27] VITALS: BP 101/68; PULSE 91; RESP 18; TEMP 36.8; O2SAT 97
--- NOTE | 2019-12-22 15:29 | PCM.RX.CS ---
Consult Pharmacy has been consulted to manage selected antiobiotic: Vancomycin Type of Consult: Follow-up Suspected Infection: Skin/Soft tissue Labs: Sodium 135 mmol/L (136-145) L 12/22/19 06:52 Potassium 3.4 mmol/L (3.5-5.1) L 12/22/19 06:52 Chloride 100 mmol/L (98-107) 12/22/19 06:52 Carbon Dioxide 23.0 mmol/L (21.0-32.0) 12/22/19 06:52 Anion Gap 12 (5-15) 12/22/19 06:52 BUN 39 mg/dL (7-18) H 12/22/19 06:52 Creatinine 3.28 mg/dL (0.55-1.02) H 12/22/19 06:52 Est GFR (MDRD) Af Amer 19 mL/min (>60) L 12/22/19 06:52 Est GFR (MDRD) Non-Af 15 mL/min (>60) L 12/22/19 06:52 BUN/Creatinine Ratio 11.9 RATIO (10-20) 12/22/19 06:52 Glucose 312 mg/dL (74-106) H 12/22/19 06:52 Goal Trough: 15-20 mcg/mL Pharmacy Plan for Drug Dosing: VANCOMYCIN LEVEL RECEIVED Current Vancomycin Dose: pt on dialysis dosing m,w,f Number of Doses Received: x1 2000mg dose on 12/21/2019 Vancomycin Level: not applicable Hours Since Last Dose: Renal Function: SrCr 3.28 Renal Function Trend: on dialysis Lab/Micro: Vancomycin Plan/Comments: pt has received dialysis today, wednesday12/22/19. will recommend a x1 dose of 750mg. Pending Level: wednesday12/25/19 at 0600 Pharmacy Service will continue to monitor and adjust dosing as required. Follow-Up Labs: Trough Vancomycin - 12/24 at 0600 (random)
[2019-12-22 17:15] LABS: Bedside Glucose 198 mg/dL (70-110)
--- NOTE | 2019-12-22 17:50 | CASEMGMT ---
Face to Face with patient for initial transition planning/care coordination assessment. FLORI YU introduced self and role at [facility], pt voices understanding. Care providers, pharmacy, and demographics verified. PCP: Dr. Eldridge Specialists:: Dr. Delgado (Hem/Onc) and [facility] (pt unable to recall the name of the specific selling specialist) Hemodialysis: M,W,F at [facility] in [place] Preferred Pharmacy: [facility] Insurance: [facility]X [facility] and [facility] Prescription Benefit: Yes Living Will/HPOA: No living will but she does have HPOA. States the forms are with her PCP. States her niece Urvashi Benton is her HPOA LNOK: Niece Urvashi Benton Living Arrangements: Pt lives in a one story home with 4 steps to enter with her niece, her and her nephew. Pt states that she is ambulatory in the home without an assistive device at baseline but she does use a cane periodically. States she also has wheeled walker and a w/c available if needed. Pt states she is independent with sponge bathing but her niece assists her with washing her hair. Pt states she assists with household duties including cooking and cleaning but her niece predominantly completes these tasks. Pt states her niece is on disability and is routinely available to assist her. Pt also has a shower chair and raised toilet seat. Pt denies any passport or waiver services currently. Transportation: Pt's nephew drives pt as needed. Pt states she still has her license but has not driven in the past year. SNF/HHC: Pt has been in a SNF in [place] and at [facility] in the past. [facility] but per pt's niece these services have ceased due to patient's progress. Plan: Discharge to home with assistance of pt's niece. With pt's permission, pt's niece was contacted and discussed patient's care at home. She is in agreement with pt's return to home. Will continue to monitor for discharge planning needs. Jesenia West RN CM
[2019-12-22 20:30] VITALS: BP 105/66; PULSE 80; RESP 18; TEMP 36.8; O2SAT 97
[2019-12-22 21:36] LABS: Bedside Glucose 81 mg/dL (70-110)
[2019-12-23 02:30] VITALS: BP 127/109; PULSE 76; RESP 18; TEMP 37.1; O2SAT 94
[2019-12-23] MEDS: Levothyroxine 100 MCG Tablet 200 MCG PO (06:22)
[2019-12-23 06:56] LABS: Bedside Glucose 105 mg/dL (70-110)
[2019-12-23 08:28] LABS: ALB/GLOB Ratio 0.5 RATIO (0.9-2.4); AST(SGOT) 50 U/L (15-37); Alanine Aminotransfer ALT/SGPT 36 U/L (13-56); Albumin, Serum 2.4 g/dL (3.2-5.0); Alkaline Phosphatase 326 U/L (45-117); Anion Gap 8 (5-15); BUN 25 mg/dL (7-18); BUN/Creat Ratio 6.4 RATIO (10-20); Calcium,Total 7.6 mg/dL (8.5-10.1); Chloride 101 mmol/L (98-107); EST Glomerular Filtration Rate 13 mL/min (>60); Est Glom Filt Rate - Afr Amer 15 mL/min (>60); Estimated Creatinine Clearance 13.74 ml/min; Globulin 4.6 g/dL (2.2-4.2); Glucose 115 mg/dL (74-106); Potassium 3.5 mmol/L (3.5-5.1); Sodium Level 135 mmol/L (136-145)
[2019-12-23 08:29] LABS: Absolute Neutrophil Count 7.7 X10^3/uL (2.0-7.7); Basophil# 0.05 X10^3/uL; Basophil% 0.4 % (0-1); Eosinophil# 0.34 X10^3/uL; Hematocrit 31.4 % (37-47); Lymphocyte % 19.2 % (19-41); Mean Corp Hgb Conc 31.8 g/dL (32-36); Mean Corpuscular Hgb 31.3 pg (27.0-32.0); Mean Corpuscular Volume 98.4 fL (81-99); Mean Platelet Vol. 11.4 fl (6.2-12.0); Monocyte# 0.99 X10^3/uL; Monocyte% 8.7 % (0-10); NRBC Flagged by Analyzer 0 % (0-5); Neutrophil # 7.74 X10^3/uL (2.7-7.7); Neutrophil % 67.7 % (47-70); Platelet Count 157 K/mm3 (150-450); RBC Distribution Width SD 50.8 fl (35.1-43.9); Red Blood Count 3.19 M/mm3 (4.2-5.4); White Blood Count 11.4 K/mm3 (4.4-11.0)
--- NOTE | 2019-12-23 08:53 | NURSING ---
pt was sleeping when this rn walking into pt's room - started assessement and pt had c/o right sides chest pain - then it changed to left sided chest pain and down her left arm - darling was on the floor and notified him and he came to see pt and questioned her about pain - she said she was having pain in her left hand and denied chest pain - darling did assessment on pt and no new order given at this time - pt fell back to sleep
[2019-12-23] MEDS: Aspirin E.C. 81 MG Tablet PO (08:56)
[2019-12-23] MEDS: Gabapentin 300 MG Capsule 900 MG PO ×2 (08:56→12:22)
[2019-12-23] MEDS: Calcium Acetate 667 MG Capsule 1334 MG PO ×3 (08:57→17:36)
[2019-12-23 09:05] VITALS: BP 94/35; PULSE 78; RESP 18; TEMP 37.1; O2SAT 94
[2019-12-23 09:57] LABS: Ammonia < 10.0 umol/L (11-32)
[2019-12-23] MEDS: Citalopram 20 MG Tablet 40 MG PO (11:17)
[2019-12-23] MEDS: buPROPion (XL) 150 MG TABLET.XL 300 MG PO (11:17)
[2019-12-23] MEDS: DULoxetine Hcl 60 MG Capsule PO (11:18)
[2019-12-23] MEDS: Furosemide 80 MG Tablet PO (11:19)
[2019-12-23] MEDS: Enoxaparin 30 MG/0.3 ML Syringe SC (11:19)
[2019-12-23] MEDS: Calcitriol 0.25 MCG Capsule PO (11:20)
[2019-12-23] MEDS: Insulin Lispro 100 UNIT/ML INSULN.PEN 28 UNIT SC ×2 (12:18→17:34)
[2019-12-23] MEDS: Insulin Lispro 100 UNIT/ML INSULN.PEN SC ×2 (12:20→17:35)
[2019-12-23 12:31] LABS: Bedside Glucose 233 mg/dL (70-110)
[2019-12-23 13:06] VITALS: BP 108/47; PULSE 82; RESP 18; TEMP 36.7; O2SAT 94
--- NOTE | 2019-12-23 13:39 | PN_ITS ---
<Travis Salguero - Last Filed: 12/23/19 13:39> Patient Problems: Active and Suspected Problems (Last Updated 12/21/19 @ 19:[address] Homar Vivar, DO) Cellulitis of left middle finger (Acute) Reason for Visit: finger cellulitis Subjective: Pt somewhat drowsy this AM. Denies fever/chills. Pt feels no improvement in finger. Ongoing finger pain. No SOB/cough. No chest pain. No palpitations. Vitals/I&O's: Vital Signs Temp Pulse Resp BP Pulse Ox 98.0 F 82 18 108/47 L 94 12/23/19 13:06 12/23/19 13:06 12/23/19 13:06 12/23/19 13:06 12/23/19 13:06 Oxygen Flow Rate (L/min) 3 Oxygen Delivery Method Room Air Weight: 254 lb 13.67 oz Body Mass Index (BMI) 43.8 Intake and Output for Last 24 Hours 12/21/19 12/22/19 12/23/19 23:59 23:59 23:59 Intake Total 1002 / 1002 1065 / 1365 1160 / 1160 Output Total 2300 / 2300 300 / 300 Balance 1002 / 1002 -1235 / -935 860 / 860 General: Alert, Oriented x3, Cooperative, Lethargic HEENT: Atraumatic, PERRLA, EOMI, Normocephalic Neck: Supple, No JVD, Negative Carotid Bruits Lungs: Clear to auscultation, Normal air movement Cardiovascular: Regular rate, No murmurs Abdomen: Bowel Sounds Present, Soft, Non Tender Extremities: No edema, Capillary Refill Less than 3 Seconds Skin: No rashes, No breakdown Musculoskeletal: No Tenderness to Palpation of Joints or Extremities Neurological: Cranial nerves II-XII grossly intact Psych/Mental Status: Normal Affect, Appropriate, Alert and oriented to time, place, person, mood and affect Microbiology Past 72 Hours 12/21/19 15:05 Blood Culture (Wb) - Right Forearm Blood Culture - Preliminary No growth in 48 hours. 12/21/19 15:05 Blood Culture (Wb) - Port Blood Culture - Preliminary No growth in 48 hours. Laboratory Results 12/22/19 16:54: POC Glucose 198 H 12/22/19 21:23: POC Glucose 81 12/23/19 06:21: POC Glucose 105 12/23/19 07:20: WBC 11.4 H, RBC 3.19 L, Hgb 10.0 L, Hct 31.4 L, MCV 98.4, MCH 31.3, MCHC 31.8 L, RDW Std Deviation 50.8 H, RDW Coeff of Angela 14.0, Plt Count 157, MPV 11.4, Immature Gran % (Auto) 1.000 H, Neut % (Auto) 67.7, Lymph % (Auto) 19.2, [place] % (Auto) 8.7, Eos % (Auto) 3.0, Baso % (Auto) 0.4, Absolute Neuts (auto) 7.7, Absolute Lymphs (auto) 2.20, Nucleated RBC % 0 12/23/19 07:20: Sodium 135 L, Potassium 3.5, Chloride 101, Carbon Dioxide 26.0, Anion Gap 8, BUN 25 H, Creatinine 3.90 H, Estim Creat Clear Calc 13.74, Est GFR (MDRD) Af Amer 15 L, Est GFR (MDRD) Non-Af 13 L, BUN/Creatinine Ratio 6.4 L, Glucose 115 H, Calcium 7.6 L, Total Bilirubin 0.50, AST 50 H, ALT 36, Alkaline Phosphatase 326 H, Total Protein 7.0, Albumin 2.4 L, Globulin 4.6 H, Albumin/Globulin Ratio 0.5 L 12/23/19 09:18: Ammonia < 10.0 L 12/23/19 12:17: POC Glucose 233 H Current Medications Acetaminophen (Tylenol) 650 mg PO Q6H PRN PRN PRN Reason: Pain Score 1-10/Temp > 100.7 F Last Admin: 12/22/19 08:15 Dose: 650 mg Documented by: Amlodipine Besylate (Norvasc) 10 mg PO DAILY [facility] Last Admin: 12/23/19 11:17 Dose: Not Given Documented by: [facility] Last Admin: 12/23/19 08:56 Dose: 81 mg Documented by: Bupropion HCl (Wellbutrin Xl) 300 mg PO DAILY [facility] Last Admin: 12/23/19 11:17 Dose: 300 mg Documented by: Calcitriol (Rocaltrol) 0.25 mcg PO DAILY [facility] Last Admin: 12/23/19 11:20 Dose: 0.25 mcg Documented by: Calcium Acetate (Phoslo Gel Cap) 1,334 mg PO TIDCM [facility] Last Admin: 12/23/19 12:21 Dose: 1,334 mg Documented by: Carvedilol (Coreg) 6.25 mg PO BID [facility] Last Admin: 12/23/19 11:18 Dose: Not Given Documented by: Citalopram Hydrobromide (Celexa) 40 mg PO DAILY [facility] Last Admin: 12/23/19 11:17 Dose: 40 mg Documented by: Dextrose (D50w Syringe) 0 gm IV X1 PRN; Protocol PRN Reason: Hypoglycemia Duloxetine HCl (Cymbalta) 60 mg PO DAILY [facility] Last Admin: 12/23/19 11:18 Dose: 60 mg Documented by: Enoxaparin Sodium (Lovenox) 30 mg SC DAILY [facility] Last Admin: 12/23/19 11:19 Dose: 30 mg Documented by: Furosemide (Lasix) 80 mg PO DAILY [facility] Last Admin: 12/23/19 11:19 Dose: 80 mg Documented by: Gabapentin (Neurontin) 900 mg PO TIDCM [facility] Last Admin: 12/23/19 12:22 Dose: 900 mg Documented by: Glucagon () 1 mg IM .X1 PRN PRN Reason: Hypoglycemia Piperacillin Sod/Tazobactam (Sod 3.375 gm/ Sodium Chloride) 50 mls @ 12.5 mls/hr IV Q12 [facility] Last Admin: 12/23/19 09:09 Dose: 12.5 mls/hr Documented by: Vancomycin IV Pharmacy to Dose (1 ea/ Sodium Chloride) 500 mls @ 250 mls/hr IV PRN PRN; Protocol PRN Reason: Rx to Dose Sodium Chloride () 250 mls @ 15 mls/hr IV .[id number] PRN PRN Reason: Saline Flush Last Admin: 12/23/19 05:22 Dose: 15 mls/hr Documented by: Insulin Glargine (Lantus (Bkc)) 60 units SC QHS [facility] Last Admin: 12/22/19 21:24 Dose: Not Given Documented by: Insulin Human Lispro (Humalog Kwikpen (Bk)) 28 unit SC TIDAC [facility] Last Admin: 12/23/19 12:18 Dose: 28 u Documented by: Insulin Human Lispro (Humalog Kwikpen (Bkc)) 0 unit SC TIDAC [facility]; Protocol Last Admin: 12/23/19 12:20 Dose: 3 u Documented by: Levothyroxine Sodium (Synthroid) 200 mcg PO DAILY@0600 [facility] Last Admin: 12/23/19 06:22 Dose: 200 mcg Documented by: Losartan Potassium (Cozaar) 50 mg PO DAILY [facility] Last Admin: 12/23/19 11:16 Dose: Not Given Documented by: Nitroglycerin (Nitrostat) 0.4 mg SUBLINGUAL UD PRN PRN Reason: chest pain Ondansetron HCl (Zofran) 4 mg IV Q8H PRN PRN PRN Reason: NAUSEA/VOMITING Last Admin: 12/21/19 23:38 Dose: 4 mg Documented by: Oxycodone HCl (Oxyir) 5 mg PO Q4H PRN PRN PRN Reason: Pain Score 4-5/10 Last Admin: 12/22/19 12:58 Dose: 5 mg Documented by: Oxycodone HCl (Oxyir) 10 mg PO Q4H PRN PRN PRN Reason: Pain Score 6-10/10 Last Admin: 12/22/19 16:55 Dose: 10 mg Documented by: Promethazine HCl (Phenergan Tablet) 25 mg PO Q8H PRN PRN PRN Reason: NAUSEA Last Admin: 12/21/19 21:55 Dose: 25 mg Documented by: Sodium Chloride () 10 - 40 ml IV UD PRN PRN Reason: SALINE FLUSH Last Admin: 12/22/19 14:25 Dose: 10 ml Documented by: STROKE Vital Signs/Narrative: Vital Signs Temp Pulse Resp BP Pulse Ox 12/23/19 13:06 98.0 F 82 18 108/47 L 94 Medical Necessity - Tobacco Use Smoking Status: Current every day smoker Tobacco Use: Cigarettes Assessment/Plan All Active Problems (Last Updated 12/21/19 @ 19:[address] Homar Vivar, DO) Cellulitis of left middle finger (Acute) 1. Left 3rd finger cellulitis - Dr. Sloan consulted-plan is to monitor, if no improvement or worsening and then may need debridement possible partial ostectomy.. continue vanc/zosyn. increased WBC. No fever. MRI does not demonstrate osteomyelitis or abscess. 2. ESRD - dialysis yesterday 3. Hx BrCa-in remission 4. DMt2 with morbid obesity-uncontrolled with hyperglycemia. improved. continue current therapy. 5. 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 6. Hx CAD - aspirin, coreg. plavix held. 7. Normocytic anemia-anemia of chronic disease. Will trend. DVT ppx: lovenox-monitor platelets with mild thrombocytopenia. This patient was seen by Travis Salguero PA-C under the supervision of Doctor Truman. <Natalie Laughlin E - Last Filed: 12/23/19 14:36> Vitals/I&O's: Vital Signs Temp Pulse Resp BP Pulse Ox 98.0 F 82 18 108/47 L 94 12/23/19 13:06 12/23/19 13:06 12/23/19 13:06 12/23/19 13:06 12/23/19 13:06 Oxygen Flow Rate (L/min) 3 Oxygen Delivery Method Room Air Weight: 254 lb 13.67 oz Body Mass Index (BMI) 43.8 Intake and Output for Last 24 Hours 12/21/19 12/22/19 12/23/19 23:59 23:59 23:59 Intake Total 1002 / 1002 1065 / 1365 1160 / 1160 Output Total 2300 / 2300 300 / 300 Balance 1002 / 1002 -1235 / -935 860 / 860 Microbiology Past 72 Hours 12/21/19 15:05 Blood Culture (Wb) - Right Forearm Blood Culture - Preliminary No growth in 48 hours. 12/21/19 15:05 Blood Culture (Wb) - Port Blood Culture - Preliminary No growth in 48 hours. Laboratory Results 12/22/19 16:54: POC Glucose 198 H 12/22/19 21:23: POC Glucose 81 12/23/19 06:21: POC Glucose 105 12/23/19 07:20: WBC 11.4 H, RBC 3.19 L, Hgb 10.0 L, Hct 31.4 L, MCV 98.4, MCH 31.3, MCHC 31.8 L, RDW Std Deviation 50.8 H, RDW Coeff of Angela 14.0, Plt Count 157, MPV 11.4, Immature Gran % (Auto) 1.000 H, Neut % (Auto) 67.7, Lymph % (Auto) 19.2, [place] % (Auto) 8.7, Eos % (Auto) 3.0, Baso % (Auto) 0.4, Absolute Neuts (auto) 7.7, Absolute Lymphs (auto) 2.20, Nucleated RBC % 0 12/23/19 07:20: Sodium 135 L, Potassium 3.5, Chloride 101, Carbon Dioxide 26.0, Anion Gap 8, BUN 25 H, Creatinine 3.90 H, Estim Creat Clear Calc 13.74, Est GFR (MDRD) Af Amer 15 L, Est GFR (MDRD) Non-Af 13 L, BUN/Creatinine Ratio 6.4 L, Glucose 115 H, Calcium 7.6 L, Total Bilirubin 0.50, AST 50 H, ALT 36, Alkaline Phosphatase 326 H, Total Protein 7.0, Albumin 2.4 L, Globulin 4.6 H, Albumin/Globulin Ratio 0.5 L 12/23/19 09:18: Ammonia < 10.0 L 12/23/19 12:17: POC Glucose 233 H Current Medications Acetaminophen (Tylenol) 650 mg PO Q6H PRN PRN PRN Reason: Pain Score 1-10/Temp > 100.7 F Last Admin: 12/22/19 08:15 Dose: 650 mg Documented by: Amlodipine Besylate (Norvasc) 10 mg PO DAILY [facility] Last Admin: 12/23/19 11:17 Dose: Not Given Documented by: [facility] Last Admin: 12/23/19 08:56 Dose: 81 mg Documented by: Bupropion HCl (Wellbutrin Xl) 300 mg PO DAILY [facility] Last Admin: 12/23/19 11:17 Dose: 300 mg Documented by: Calcitriol (Rocaltrol) 0.25 mcg PO DAILY [facility] Last Admin: 12/23/19 11:20 Dose: 0.25 mcg Documented by: Calcium Acetate (Phoslo Gel Cap) 1,334 mg PO TIDCM [facility] Last Admin: 12/23/19 12:21 Dose: 1,334 mg Documented by: Carvedilol (Coreg) 6.25 mg PO BID [facility] Last Admin: 12/23/19 11:18 Dose: Not Given Documented by: Citalopram Hydrobromide (Celexa) 40 mg PO DAILY [facility] Last Admin: 12/23/19 11:17 Dose: 40 mg Documented by: Dextrose (D50w Syringe) 0 gm IV X1 PRN; Protocol PRN Reason: Hypoglycemia Duloxetine HCl (Cymbalta) 60 mg PO DAILY [facility] Last Admin: 12/23/19 11:18 Dose: 60 mg Documented by: Enoxaparin Sodium (Lovenox) 30 mg SC DAILY [facility] Last Admin: 12/23/19 11:19 Dose: 30 mg Documented by: Furosemide (Lasix) 80 mg PO DAILY [facility] Last Admin: 12/23/19 11:19 Dose: 80 mg Documented by: Gabapentin (Neurontin) 900 mg PO TIDCM [facility] Last Admin: 12/23/19 12:22 Dose: 900 mg Documented by: Glucagon () 1 mg IM .X1 PRN PRN Reason: Hypoglycemia Piperacillin Sod/Tazobactam (Sod 3.375 gm/ Sodium Chloride) 50 mls @ 12.5 mls/hr IV Q12 [facility] Last Admin: 12/23/19 09:09 Dose: 12.5 mls/hr Documented by: Vancomycin IV Pharmacy to Dose (1 ea/ Sodium Chloride) 500 mls @ 250 mls/hr IV PRN PRN; Protocol PRN Reason: Rx to Dose Sodium Chloride () 250 mls @ 15 mls/hr IV .[id number] PRN PRN Reason: Saline Flush Last Admin: 12/23/19 05:22 Dose: 15 mls/hr Documented by: Insulin Glargine (Lantus (Bkc)) 60 units SC QHS [facility] Last Admin: 12/22/19 21:24 Dose: Not Given Documented by: Insulin Human Lispro (Humalog Kwikpen (Bkc)) 28 unit SC TIDAC [facility] Last Admin: 12/23/19 12:18 Dose: 28 u Documented by: Insulin Human Lispro (Humalog Kwikpen (Bkc)) 0 unit SC TIDAC [facility]; Protocol Last Admin: 12/23/19 12:20 Dose: 3 u Documented by: Levothyroxine Sodium (Synthroid) 200 mcg PO DAILY@0600 [facility] Last Admin: 12/23/19 06:22 Dose: 200 mcg Documented by: Losartan Potassium (Cozaar) 50 mg PO DAILY [facility] Last Admin: 12/23/19 11:16 Dose: Not Given Documented by: Nitroglycerin (Nitrostat) 0.4 mg SUBLINGUAL UD PRN PRN Reason: chest pain Ondansetron HCl (Zofran) 4 mg IV Q8H PRN PRN PRN Reason: NAUSEA/VOMITING Last Admin: 12/21/19 23:38 Dose: 4 mg Documented by: Oxycodone HCl (Oxyir) 5 mg PO Q4H PRN PRN PRN Reason: Pain Score 4-5/10 Last Admin: 12/22/19 12:58 Dose: 5 mg Documented by: Oxycodone HCl (Oxyir) 10 mg PO Q4H PRN PRN PRN Reason: Pain Score 6-10/10 Last Admin: 12/22/19 16:55 Dose: 10 mg Documented by: Promethazine HCl (Phenergan Tablet) 25 mg PO Q8H PRN PRN PRN Reason: NAUSEA Last Admin: 12/21/19 21:55 Dose: 25 mg Documented by: Sodium Chloride () 10 - 40 ml IV UD PRN PRN Reason: SALINE FLUSH Last Admin: 12/22/19 14:25 Dose: 10 ml Documented by: STROKE Vital Signs/Narrative: Vital Signs Temp Pulse Resp BP Pulse Ox 12/23/19 13:06 98.0 F 82 18 108/47 L 94 Assessment/Plan Hospitalist note: I am seeing this patient in conjunction with Travis Salguero. I independently seen and examined the patient. Progress note above and laboratory data reviewed and I concur with above treatment plan. She still complaining of left middle finger pain, some improvement. Denied fever chills. No other complaints. Her vital signs are stable. - Physical Exam General: Alert, Oriented x3, Cooperative, No apparent distress. HEENT: Atraumatic, PERRLA, EOMI. Neck: Supple, No JVD, Negative Carotid Bruits, Trachea Midline, Thyroid Normal. Lungs: Diminished breath sounds bilateral, otherwise clear, no rhonchi, No wheeze, No rales. Cardiovascular: Regular rate, Regular Rhythm, Normal S1, Normal S2, PMI Normal. Abdomen: Bowel Sounds Present, Soft, Non Tender, Non-Distended, No Hepato-splenomegaly. Extremities: No clubbing, No cyanosis, No edema. Left hand: Distal middle finger is swollen, red, tender, erythematous. Skin: No rashes, No breakdown Neurological: Cranial nerves are intact, neuro grossly intact Vital Signs are stable. Assessment and plan: #1 acute left middle finger cellulitis: Remained on IV vancomycin and Zosyn. There has been improvement of the left middle finger swelling and erythema. Blood cultures showed no growth in 48 hours. MRI reveals no evidence of osteomyelitis or abscess. Dr. Sloan was consulted, awaiting recommendations. Plan to continue IV antibiotics, monitor blood culture. #2 ESRD on hemodialysis: Receiving hemodialysis as per her schedule. Nephrology consulted. #3 hypothyroidism: continue levothyroxine. TSH elevated at 11.5. Recommend to repeat TSH in 2 weeks. #4 other chronic medical problems: Stable, continue current medications as above. This note was generated with [employer] dictation software. It may contain incorrect words, spelling, and punctuation that were not noted in checking the note before signing. Inpatient E&M: 54108 Subs Hosp L2
[2019-12-23 15:17] VITALS: BP 110/46; PULSE 77; RESP 18; TEMP 37.2; O2SAT 94
[2019-12-23 15:31] LABS: Bedside Glucose 205 mg/dL (70-110)
[2019-12-23 17:26] VITALS: BP 100/71; PULSE 78; RESP 20; TEMP 36.9; O2SAT 95
[2019-12-23 17:40] LABS: Bedside Glucose 194 mg/dL (70-110)
--- NOTE | 2019-12-23 20:42 | PN.SURG_ITS ---
Patient Problems: Active and Suspected Problems (Last Updated 12/21/19 @ 19:[address] Homar Vivar, DO) Pressure injury of upper extremity, unstageable (Acute) left long finger tip Cellulitis of left middle finger (Acute) Subjective: Patient states her left long finger feels better with minimal pain. - Physical Exam Vitals/I&O's: Vital Signs Temp Pulse Resp BP Pulse Ox 98.4 F 78 20 H 100/71 95 12/23/19 17:26 12/23/19 17:26 12/23/19 17:26 12/23/19 17:26 12/23/19 17:26 Oxygen Flow Rate (L/min) 3 Oxygen Delivery Method Room Air Weight: 254 lb 13.67 oz Body Mass Index (BMI) 43.8 Intake and Output for Last 24 Hours 12/21/19 12/22/19 12/23/19 23:59 23:59 23:59 Intake Total 1002 / 1002 1065 / 1365 1660 / 1660 Output Total 2300 / 2300 300 / 300 Balance 1002 / 1002 -1235 / -935 1360 / 1360 General: Alert, Oriented x3 HEENT: PERRLA, EOMI Oral: Moist Mucosa Neck: Supple Abdomen: Soft, Non-Distended Skin: - - On the left hand involving the long finger, there is some blistering and some redness at the tip extending proximally onto the middle phalanx. The blistering is noted on the volar side. Minimal swelling seen. Minimal tenderness at the tip of the finger. The volar side is soft and nontender. She can make a fist. Flexing the fingers are nontender. Passively extending the fingers are nontender. Does have decreased sensation at the finger tipis. Radial pulses are palpable. Fingers are warm. Decreased capillary refill. No axillary adenopathy. No evidence of acute tenosynovitis. No proximal extension of the redness and is decreasing in color to a more pinkish color. Lymphatic: - - no axillary adenopathy. Neurological: Cranial nerves II-XII grossly intact Psych/Mental Status: Normal Affect, Appropriate Microbiology Past 72 Hours 12/21/19 15:05 Blood Culture (Wb) - Right Forearm Blood Culture - Preliminary No growth in 48 hours. 12/21/19 15:05 Blood Culture (Wb) - Port Blood Culture - Preliminary No growth in 48 hours. Laboratory Results 12/22/19 21:23: POC Glucose 81 12/23/19 06:21: POC Glucose 105 12/23/19 07:20: WBC 11.4 H, RBC 3.19 L, Hgb 10.0 L, Hct 31.4 L, MCV 98.4, MCH 31.3, MCHC 31.8 L, RDW Std Deviation 50.8 H, RDW Coeff of Angela 14.0, Plt Count 157, MPV 11.4, Immature Gran % (Auto) 1.000 H, Neut % (Auto) 67.7, Lymph % (Auto) 19.2, Sumner % (Auto) 8.7, Eos % (Auto) 3.0, Baso % (Auto) 0.4, Absolute Neuts (auto) 7.7, Absolute Lymphs (auto) 2.20, Nucleated RBC % 0 12/23/19 07:20: Sodium 135 L, Potassium 3.5, Chloride 101, Carbon Dioxide 26.0, Anion Gap 8, BUN 25 H, Creatinine 3.90 H, Estim Creat Clear Calc 13.74, Est GFR (MDRD) Af Amer 15 L, Est GFR (MDRD) Non-Af 13 L, BUN/Creatinine Ratio 6.4 L, Glucose 115 H, Calcium 7.6 L, Total Bilirubin 0.50, AST 50 H, ALT 36, Alkaline Phosphatase 326 H, Total Protein 7.0, Albumin 2.4 L, Globulin 4.6 H, Albumin/Globulin Ratio 0.5 L 12/23/19 07:20: TSH 4.60 H 12/23/19 09:18: Ammonia < 10.0 L 12/23/19 12:17: POC Glucose 233 H 12/23/19 15:23: POC Glucose 205 H 12/23/19 17:30: POC Glucose 194 H Current Medications Acetaminophen (Tylenol) 650 mg PO Q6H PRN PRN PRN Reason: Pain Score 1-10/Temp > 100.7 F Last Admin: 12/22/19 08:15 Dose: 650 mg Documented by: Amlodipine Besylate (Norvasc) 10 mg PO DAILY [facility] Last Admin: 12/23/19 11:17 Dose: Not Given Documented by: Aspirin (Ecotrin) 81 mg PO [facility] Last Admin: 12/23/19 08:56 Dose: 81 mg Documented by: Bupropion HCl (Wellbutrin Xl) 300 mg PO DAILY [facility] Last Admin: 12/23/19 11:17 Dose: 300 mg Documented by: Calcitriol (Rocaltrol) 0.25 mcg PO DAILY [facility] Last Admin: 12/23/19 11:20 Dose: 0.25 mcg Documented by: Calcium Acetate (Phoslo Gel Cap) 1,334 mg PO TIDCM [facility] Last Admin: 12/23/19 17:36 Dose: 1,334 mg Documented by: Carvedilol (Coreg) 6.25 mg PO BID [facility] Last Admin: 12/23/19 11:18 Dose: Not Given Documented by: Dextrose (D50w Syringe) 0 gm IV X1 PRN; Protocol PRN Reason: Hypoglycemia Duloxetine HCl (Cymbalta) 60 mg PO DAILY [facility] Last Admin: 12/23/19 11:18 Dose: 60 mg Documented by: Enoxaparin Sodium (Lovenox) 30 mg SC DAILY [facility] Last Admin: 12/23/19 11:19 Dose: 30 mg Documented by: Furosemide (Lasix) 80 mg PO DAILY [facility] Last Admin: 12/23/19 11:19 Dose: 80 mg Documented by: Glucagon () 1 mg IM .X1 PRN PRN Reason: Hypoglycemia Piperacillin Sod/Tazobactam (Sod 3.375 gm/ Sodium Chloride) 50 mls @ 12.5 mls/hr IV Q12 [facility] Last Infusion: 12/23/19 13:09 Dose: Infused Documented by: Vancomycin IV Pharmacy to Dose (1 ea/ Sodium Chloride) 500 mls @ 250 mls/hr IV PRN PRN; Protocol PRN Reason: Rx to Dose Sodium Chloride () 250 mls @ 15 mls/hr IV .[id number] PRN PRN Reason: Saline Flush Last Admin: 12/23/19 05:22 Dose: 15 mls/hr Documented by: Insulin Glargine (Lantus (Bk)) 60 units SC QHS [facility] Last Admin: 12/22/19 21:24 Dose: Not Given Documented by: Insulin Human Lispro (Humalog Kwikpen ([facility])) 28 unit SC TIDAC [facility] Last Admin: 12/23/19 17:34 Dose: 28 u Documented by: Insulin Human Lispro (Humalog Kwikpen ([facility])) 0 unit SC TIDAC [facility]; Protocol Last Admin: 12/23/19 17:35 Dose: 2 u Documented by: Levothyroxine Sodium (Synthroid) 200 mcg PO DAILY@0600 [facility] Last Admin: 12/23/19 06:22 Dose: 200 mcg Documented by: Losartan Potassium (Cozaar) 50 mg PO DAILY [facility] Last Admin: 12/23/19 11:16 Dose: Not Given Documented by: Nitroglycerin (Nitrostat) 0.4 mg SUBLINGUAL UD PRN PRN Reason: chest pain Ondansetron HCl (Zofran) 4 mg IV Q8H PRN PRN PRN Reason: NAUSEA/VOMITING Last Admin: 12/21/19 23:38 Dose: 4 mg Documented by: Oxycodone HCl (Oxyir) 5 mg PO Q6H PRN PRN PRN Reason: Pain Score 4-10/10 Sodium Chloride () 10 - 40 ml IV UD PRN PRN Reason: SALINE FLUSH Last Admin: 12/22/19 14:25 Dose: 10 ml Documented by: Medical Necessity - Tobacco Use Smoking Status: Current every day smoker Tobacco Use: Cigarettes Assessment/Plan All Active Problems (Last Updated 12/21/19 @ 19:[address] Homar Vivar, DO) Pressure injury of upper extremity, unstageable (Acute) Cellulitis of left middle finger (Acute) 1. Left long finger tip pressure injury infection with blistering and cellulitis. 2. Diabetes mellitus. 3. ESRD on dialysis. 4. Smoker. Continue IV antibiotics with Vancomycin and Zosyn. No clinical evidence of tenosynovitis. There is no urgent need for surgical intervention at this time. Will monitor the left finger tip closely. If the infection spreads more proximally despite IV antibiotics, then would need operative intervention and debridement including a partial ostectomy to evaluate for osteomyelitis. If surgery is necessary, would leave the wound open and start daily Silver dressing changes. If a wound is created after surgical debridement, I anticipate a prolonged healing process. Could be a pressure injury type infection. Ultimately may need an amputation. Patient voices understanding. Could be a vascular issue. Would benefit from noninvasive arterial doppler studies. She is at risk for having vascular issues in her finger tips including diabetes mellitus, ESRD on dialysis, and smoking. Her medical co-morbidities decrease her immune system so an autoimmune process could be present, such as scleroderma or Raynaud's. HgbA1c was 7.7. Patient was informed of the risks and complications of the procedure including alternatives to surgery. These were discussed with the patient personally. Patient voices understanding and wishes to proceed with the current plan of IV antibiotics. She is aware that surgery may be necessary. If no surgery is done during this admission, she will see me weekly in the office to closely monitor for any changes that would necessitate operative intervention. If the infection does not spread more proximally and doesn't resolve with IV antibiotics, she would still need operative debridement. Ideally would like to stabilize the finger enough that if an amputation is done, it can be done as distally as possible. Encouraged patient to stop smoking as it may have deleterious effects on wound healing. Inpatient E&M: 72709 Subs Hosp L2 - ICD-10 - L03.112, L89.890, E11.9, N18.6, F17.200
[2019-12-23 21:36] LABS: Bedside Glucose 152 mg/dL (70-110)
[2019-12-23 22:00] VITALS: BP 111/46; PULSE 88; RESP 18; TEMP 36.7; O2SAT 96
[2019-12-24 02:30] VITALS: BP 118/57; PULSE 79; RESP 18; TEMP 36.8; O2SAT 97
[2019-12-24] MEDS: Levothyroxine 100 MCG Tablet 200 MCG PO (06:15)
[2019-12-24 06:25] LABS: Bedside Glucose 96 mg/dL (70-110)
[2019-12-24 07:19] LABS: Absolute Lymphocyte Count 2.36 X10^3/uL (0.83-4.51); Absolute Neutrophil Count 6.7 X10^3/uL (2.0-7.7); Basophil# 0.04 X10^3/uL; Basophil% 0.4 % (0-1); Eosinophil# 0.46 X10^3/uL; Eosinophils% 4.3 % (0-5); Hematocrit 29.7 % (37-47); Hemoglobin 9.6 g/dL (12.0-15.0); Lymphocyte # 2.36 X10^3/ul (4.0); Lymphocyte % 21.9 % (19-41); Mean Corp Hgb Conc 32.3 g/dL (32-36); Mean Corpuscular Hgb 31.1 pg (27.0-32.0); Mean Corpuscular Volume 96.1 fL (81-99); Mean Platelet Vol. 11.1 fl (6.2-12.0); Monocyte% 10.2 % (0-10); NRBC Flagged by Analyzer 0 % (0-5); Neutrophil # 6.73 X10^3/uL (2.7-7.7); Neutrophil % 62.2 % (47-70); Platelet Count 176 K/mm3 (150-450); RBC Distribution Width CV 13.7 % (11.6-14.6); RBC Distribution Width SD 48.5 fl (35.1-43.9); Red Blood Count 3.09 M/mm3 (4.2-5.4); White Blood Count 10.8 K/mm3 (4.4-11.0)
[2019-12-24 07:46] LABS: ALB/GLOB Ratio 0.5 RATIO (0.9-2.4); AST(SGOT) 49 U/L (15-37); Alanine Aminotransfer ALT/SGPT 34 U/L (13-56); Albumin, Serum 2.5 g/dL (3.2-5.0); Alkaline Phosphatase 349 U/L (45-117); Anion Gap 11 (5-15); BUN 36 mg/dL (7-18); BUN/Creat Ratio 6.5 RATIO (10-20); Calcium,Total 7.7 mg/dL (8.5-10.1); Chloride 96 mmol/L (98-107); Creatinine, Serum 5.53 mg/dL (0.55-1.02); EST Glomerular Filtration Rate 8 mL/min (>60); Est Glom Filt Rate - Afr Amer 10 mL/min (>60); Estimated Creatinine Clearance 9.69 ml/min; Globulin 4.7 g/dL (2.2-4.2); Glucose 125 mg/dL (74-106); Potassium 3.8 mmol/L (3.5-5.1); Protein, Total 7.2 g/dL (6.4-8.2); Sodium Level 130 mmol/L (136-145)
[2019-12-24 10:30] VITALS: BP 100/58; PULSE 76; RESP 20; TEMP 36.7; O2SAT 95
[2019-12-24] MEDS: buPROPion (XL) 150 MG TABLET.XL 300 MG PO (10:34)
[2019-12-24] MEDS: Furosemide 80 MG Tablet PO (10:34)
[2019-12-24] MEDS: Calcium Acetate 667 MG Capsule 1334 MG PO ×3 (10:35→17:35)
[2019-12-24] MEDS: Aspirin E.C. 81 MG Tablet PO (10:35)
[2019-12-24] MEDS: Enoxaparin 30 MG/0.3 ML Syringe SC (10:36)
[2019-12-24] MEDS: Calcitriol 0.25 MCG Capsule PO (10:36)
[2019-12-24] MEDS: DULoxetine Hcl 60 MG Capsule PO (10:37)
--- NOTE | 2019-12-24 11:28 | PCM.DC ---
- Discharge Diagnoses Current Active Problems: Current Active and Chronic Problems (Last Updated 12/21/19 @ 19:[address] Homar Vivar, DO) Hypertension (Chronic) Type 2 diabetes mellitus (Chronic) Hypothyroidism (Chronic) ESRD on hemodialysis (Chronic) Cellulitis of left middle finger (Acute) You will use the following diet at home:: Calorie/Carbohydrate Controlled (specify 1200, 1400, etc) - 1800 tawny / day, Renal (restricted protein/sodium) Your food should be the consistency of: Regular Your liquids should be the consistency of: Regular/Thin Discharge Activity: Return to Normal Activity Additional Instructions: Reduce gabapentin to 300 mg three times daily. Allergies/Adverse Reactions: Allergies codeine phosphate [From Tylenol-Codeine #3] Allergy (Verified 08/13/19 15:48) Swelling simvastatin [From Zocor] Allergy (Verified 08/13/19 15:48) Other Medications to take at Discharge Insulin Aspart [Novolog Flexpen] 28 units SC TIDCM 05/14/13 proMETHazine tablet [Phenergan tablet] 25 mg PO Q8H PRN PRN 05/14/13 Carvedilol 6.25 mg PO BID 08/13/19 Duloxetine HCl 60 mg PO DAILY 08/13/19 Acetaminophen [Tylenol Extra Strength] 1,000 mg PO Q6H PRN PRN 12/21/19 Amlodipine [Norvasc] 10 mg PO DAILY 12/21/19 Aspirin E.C. [Ecotrin] 81 mg PO DAILY@0800 12/21/19 Bupropion HCl [Bupropion Xl] 300 mg PO DAILY 12/21/19 Calcitriol [Rocaltrol] 0.25 mcg PO DAILY 12/21/19 Calcium Acetate [Phoslo Gel Cap] 1,334 mg PO TIDCM 12/21/19 Gabapentin [Neurontin] 600 mg PO TID 12/21/19 Insulin Detemir [Levemir Flextouch] 60 unit SQ QHS 12/21/19 Levothyroxine Sodium [Synthroid] 200 mcg PO DAILY 12/21/19 Nitroglycerin [Nitrostat] 0.4 mg SL Q5M PRN 12/21/19 Amoxicillin/Potassium Clav [Augmentin 500-125 Tablet] 1 ea PO DAILY #7 tab 12/24/19 Doxycycline [Vibramycin] 100 mg PO BID #14 cap 12/24/19 The following prescriptions were given: Amoxicillin/Potassium Clav [Augmentin 500-125 Tablet] 1 ea PO DAILY #7 tab Transmission Status: Pending to [id number] Doxycycline [Vibramycin] 100 mg PO BID #14 cap Transmission Status: Pending to [id number] Primary Care Physician: Iban Eldridge MD [Primary Care Provider] - Please follow up with your Primary Care Physician in: 1-2 weeks Test Results: Test results from this visit will be discussed in further detail at your follow-up appointment, if applicable. Please Follow Up With: Michael Max MD - Dialysis When: as directed Please Follow Up With: Denis Sloan MD - At wound care center When: 1-2 weeks Proposed Discharge Date: 12/24/19
[2019-12-24] MEDS: Insulin Lispro 100 UNIT/ML INSULN.PEN 28 UNIT SC (12:37)
[2019-12-24] MEDS: Insulin Lispro 100 UNIT/ML INSULN.PEN SC (12:37)
[2019-12-24 12:40] LABS: Bedside Glucose 170 mg/dL (70-110)
[2019-12-24] MEDS: Acetaminophen 325 MG Tablet 650 MG PO ×2 (12:40→23:54)
--- NOTE | 2019-12-24 13:47 | PCM.DC.SUM ---
<Travis Salguero - Last Filed: 12/24/19 13:47> Discharge Date and Diagnosis - Problem List Patient Problems: Active and Suspected Problems (Last Updated 12/21/19 @ 19:[address] Homar Vivar DO) Pressure injury of upper extremity, unstageable (Acute) left long finger tip Cellulitis of left middle finger (Acute) Date of Admission: 12/21/19 - Primary Discharge Diagnosis Acute Problems: Active Problems (Last Updated 12/21/19 @ 19:[address] Homar Vivar DO) Cellulitis left 3rd digit complicated by ESRD, nicotine abuse, DMt2 - Secondary Discharge Diagnosis Chronic Problems: Chronic Problems (Last Updated 12/21/19 @ 19:[address] Homar Vivar DO) Hypertension (Chronic) Type 2 diabetes mellitus (Chronic) Hypothyroidism (Chronic) ESRD on hemodialysis (Chronic) Tobacco abuse (Chronic) Hospital Course and Treatment Imaging Results: IMAGING: RAD/Hand Min 3 Views IMPRESSION: Diffuse soft tissue swelling involving the third digit. MRI/Upper Ext/No Jt/ wo IMPRESSION: Edema in the subcutis adipose space of the third finger. No demonstrated osteomyelitis or abscess. Consults: Plastics - [place] Operations: None Procedures: None Summary of Care Provided: Hospital course: The patient is a 59 year old F past medical history as above notably end-stage renal disease on hemodialysis, ongoing nicotine abuse, type 2 diabetes, who presented to the emergency room with complaints of left middle finger swelling and redness. She noted that she noticed a blister approximately 3 days prior to presentation which progressively worsened, had some redness going up her arm. She appeared to have cellulitis on presentation to the ER and was started on ampicillin sulbactam. She was admitted to the medical surgical floor. Plastic surgery was consulted for evaluation. MRI was obtained did not demonstrate abscess or osteomyelitis. Patient had significant improvement with IV antibiotics. Surgery recommended no acute intervention at this time but that close follow-up is warranted in the office within a week, as she may later need debridement or amputation. With underlying DMt2, ESRD, and continued nicotine abuse her ability to heal will be highly compromised. Patient's blood cultures were negative, she did not have any wound drainage to culture unfortunately, and she has no records here of wound cultures in the past. The patient was transitioned to oral antibiotics with Augmentin and doxycycline. She was discharged home in stable condition. Follow up with Dr Sloan within 1 week and with PCP in 1-2 weeks. Resume dialysis on normal schedule. Also of note: we recommended decreasing her gabapentin due to lethargy. This patient was seen by Travis Salguero PA-C under the supervision of Doctor Truman. [] Patient Problems: Active and Suspected Problems (Last Updated 12/21/19 @ 19:[address] Homar Vivar, DO) Pressure injury of upper extremity, unstageable (Acute) left long finger tip Cellulitis of left middle finger (Acute) - Physical Exam Vitals/I&O's: Vital Signs Temp Pulse Resp BP Pulse Ox 98.0 F 76 20 H 100/58 L 95 12/24/19 10:30 12/24/19 10:30 12/24/19 10:30 12/24/19 10:30 12/24/19 10:30 Oxygen Flow Rate (L/min) 3 Oxygen Delivery Method Room Air Weight: 254 lb 13.67 oz Body Mass Index (BMI) 43.8 Intake and Output for Last 24 Hours 12/22/19 12/23/19 12/24/19 23:59 23:59 23:59 Intake Total 1065 / 1365 1910 / 2310 710.5 / 710.5 Output Total 2300 / 2300 300 / 300 0 / 0 Balance -1235 / -935 1609 710.5 / 710.5 General: Alert, Oriented x3, Cooperative HEENT: Atraumatic, PERRLA, EOMI, Normocephalic Neck: Supple, No JVD, Negative Carotid Bruits Lungs: Clear to auscultation, Normal air movement Cardiovascular: Regular rate, No murmurs Abdomen: Bowel Sounds Present, Soft, Non Tender, Obese Extremities: No edema, Capillary Refill Less than 3 Seconds Skin: No rashes, No breakdown, - - improved swelling erythema and warmth of left 3rd digit. Musculoskeletal: No Tenderness to Palpation of Joints or Extremities Neurological: Cranial nerves II-XII grossly intact Psych/Mental Status: Normal Affect, Appropriate, Alert and oriented to time, place, person, mood and affect Microbiology Past 72 Hours 12/21/19 15:05 Blood Culture (Wb) - Right Forearm Blood Culture - Preliminary No growth in 48 hours. 12/21/19 15:05 Blood Culture (Wb) - Port Blood Culture - Preliminary No growth in 48 hours. Laboratory Results 12/23/19 07:20: TSH 4.60 H 12/23/19 15:23: POC Glucose 205 H 12/23/19 17:30: POC Glucose 194 H 12/23/19 21:29: POC Glucose 152 H 12/24/19 06:21: POC Glucose 96 12/24/19 06:57: WBC 10.8, RBC 3.09 L, Hgb 9.6 L, Hct 29.7 L, MCV 96.1, MCH 31.1, MCHC 32.3, RDW Std Deviation 48.5 H, RDW Coeff of Angela 13.7, Plt Count 176, MPV 11.1, Immature Gran % (Auto) 1.000 H, Neut % (Auto) 62.2, Lymph % (Auto) 21.9, [place] % (Auto) 10.2 H, Eos % (Auto) 4.3, Baso % (Auto) 0.4, Absolute Neuts (auto) 6.7, Absolute Lymphs (auto) 2.36, Nucleated RBC % 0 12/24/19 06:57: Sodium 130 L, Potassium 3.8, Chloride 96 L, Carbon Dioxide 23.0, Anion Gap 11, BUN 36 H, Creatinine 5.53 H, Estim Creat Clear Calc 9.69, Est GFR (MDRD) Af Amer 10 L, Est GFR (MDRD) Non-Af 8 L, BUN/Creatinine Ratio 6.5 L, Glucose 125 H, Calcium 7.7 L, Total Bilirubin 0.50, AST 49 H, ALT 34, Alkaline Phosphatase 349 H, Total Protein 7.2, Albumin 2.5 L, Globulin 4.7 H, Albumin/Globulin Ratio 0.5 L 12/24/19 06:57: Vitamin B12 Pending 12/24/19 12:33: POC Glucose 170 H Current Medications Acetaminophen (Tylenol) 650 mg PO Q6H PRN PRN PRN Reason: Pain Score 1-10/Temp > 100.7 F Last Admin: 12/24/19 12:40 Dose: 650 mg Documented by: Amlodipine Besylate (Norvasc) 10 mg PO DAILY [facility] Last Admin: 12/24/19 10:34 Dose: Not Given Documented by: Aspirin (Ecotrin) 81 mg PO DAILYCM [facility] Last Admin: 12/24/19 10:35 Dose: 81 mg Documented by: Bupropion HCl (Wellbutrin Xl) 300 mg PO DAILY [facility] Last Admin: 12/24/19 10:34 Dose: 300 mg Documented by: Calcitriol (Rocaltrol) 0.25 mcg PO DAILY [facility] Last Admin: 12/24/19 10:36 Dose: 0.25 mcg Documented by: Calcium Acetate (Phoslo Gel Cap) 1,334 mg PO TIDCM [facility] Last Admin: 12/24/19 12:39 Dose: 1,334 mg Documented by: Carvedilol (Coreg) 6.25 mg PO BID [facility] Last Admin: 12/24/19 10:34 Dose: Not Given Documented by: Dextrose (D50w Syringe) 0 gm IV X1 PRN; Protocol PRN Reason: Hypoglycemia Duloxetine HCl (Cymbalta) 60 mg PO DAILY [facility] Last Admin: 12/24/19 10:37 Dose: 60 mg Documented by: Enoxaparin Sodium (Lovenox) 30 mg SC DAILY [facility] Last Admin: 12/24/19 10:36 Dose: 30 mg Documented by: Furosemide (Lasix) 80 mg PO DAILY [facility] Last Admin: 12/24/19 10:34 Dose: 80 mg Documented by: Glucagon () 1 mg IM .X1 PRN PRN Reason: Hypoglycemia Piperacillin Sod/Tazobactam (Sod 3.375 gm/ Sodium Chloride) 50 mls @ 12.5 mls/hr IV Q12 [facility] Last Admin: 12/24/19 10:51 Dose: 12.5 mls/hr Documented by: Vancomycin IV Pharmacy to Dose (1 ea/ Sodium Chloride) 500 mls @ 250 mls/hr IV PRN PRN; Protocol PRN Reason: Rx to Dose Sodium Chloride () 250 mls @ 15 mls/hr IV .[id number] PRN PRN Reason: Saline Flush Last Infusion: 12/24/19 11:34 Dose: 0 mls/hr Documented by: Insulin Glargine (Lantus ([facility])) 60 units SC QHS [facility] Last Admin: 12/23/19 21:31 Dose: 60 units Documented by: Insulin Human Lispro (Humalog Kwikpen ([facility])) 28 unit SC TIDAC [facility] Last Admin: 12/24/19 12:37 Dose: 28 u Documented by: Insulin Human Lispro (Humalog Kwikpen (Bkc)) 0 unit SC TIDAC [facility]; Protocol Last Admin: 12/24/19 12:37 Dose: 1 u Documented by: Levothyroxine Sodium (Synthroid) 200 mcg PO DAILY@0600 [facility] Last Admin: 12/24/19 06:15 Dose: 200 mcg Documented by: Losartan Potassium (Cozaar) 50 mg PO DAILY [facility] Last Admin: 12/24/19 10:34 Dose: Not Given Documented by: Nitroglycerin (Nitrostat) 0.4 mg SUBLINGUAL UD PRN PRN Reason: chest pain Ondansetron HCl (Zofran) 4 mg IV Q8H PRN PRN PRN Reason: NAUSEA/VOMITING Last Admin: 12/21/19 23:38 Dose: 4 mg Documented by: Oxycodone HCl (Oxyir) 5 mg PO Q6H PRN PRN PRN Reason: Pain Score 4-10/10 Sodium Chloride () 10 - 40 ml IV UD PRN PRN Reason: SALINE FLUSH Last Admin: 12/22/19 14:25 Dose: 10 ml Documented by: Discharge Diet: 1800 Calorie Control Diet, Renal Diet Discharge Activity: Return to Normal Activity Home Medications: Medications to take at Discharge Insulin Aspart [Novolog Flexpen] 28 units SC TIDCM 05/14/13 proMETHazine tablet [Phenergan tablet] 25 mg PO Q8H PRN PRN 05/14/13 Carvedilol 6.25 mg PO BID 08/13/19 Duloxetine HCl 60 mg PO DAILY 08/13/19 Acetaminophen [Tylenol Extra Strength] 1,000 mg PO Q6H PRN PRN 12/21/19 Amlodipine [Norvasc] 10 mg PO DAILY 12/21/19 Aspirin E.C. [Ecotrin] 81 mg PO DAILY@0800 12/21/19 Bupropion HCl [Bupropion Xl] 300 mg PO DAILY 12/21/19 Calcitriol [Rocaltrol] 0.25 mcg PO DAILY 12/21/19 Calcium Acetate [Phoslo Gel Cap] 1,334 mg PO TIDCM 12/21/19 Insulin Detemir [Levemir Flextouch] 60 unit SQ QHS 12/21/19 Levothyroxine Sodium [Synthroid] 200 mcg PO DAILY 12/21/19 Nitroglycerin [Nitrostat] 0.4 mg SL Q5M PRN 12/21/19 Amoxicillin/Potassium Clav [Augmentin 500-125 Tablet] 1 ea PO DAILY #7 tab 12/24/19 Doxycycline [Vibramycin] 100 mg PO BID #14 cap 12/24/19 Gabapentin [Neurontin] 300 mg PO TID #0 12/24/19 Following Prescriptions Were Given to Patient: Amoxicillin/Potassium Clav [Augmentin 500-125 Tablet] 1 ea PO DAILY #7 tab Transmission Status: Received by [facility] Doxycycline [Vibramycin] 100 mg PO BID #14 cap Transmission [facility]: [facility] Primary Care Physician: Iban Eldridge MD [Primary Care Provider] - Please follow up with your Primary Care Physician in: 1-2 weeks Please Follow Up With: Michael Max MD - Dialysis When: as directed Please Follow Up With: Denis Sloan MD - At wound care center When: 1-2 weeks Disposition: Home Minutes spent on discharge:: 35 Patient Condition:: Stable Medical Necessity - Tobacco Use Smoking Status: Current every day smoker Tobacco Use: Cigarettes Meaningful Use Info Meaningful Use Diagnoses (Choose all that apply): None applicable <Natalie Laughlin Mulu - Last Filed: 12/24/19 15:17> Discharge Date and Diagnosis Date of Discharge: 12/24/19 - Primary Discharge Diagnosis Acute Problems: Active Problems (Last Updated 12/21/19 @ 19:[address] Homar Vivar DO) Pressure injury of upper extremity, unstageable (Acute) left long finger tip Cellulitis of left middle finger (Acute) - Secondary Discharge Diagnosis Chronic Problems: Chronic Problems (Last Updated 12/21/19 @ 19:[address] Homar Vivar DO) Hypertension (Chronic) Type 2 diabetes mellitus (Chronic) Hypothyroidism (Chronic) ESRD on hemodialysis (Chronic) Tobacco abuse (Chronic) Hospital Course and Treatment Summary of Care Provided: Hospitalist note: Discharge summary above reviewed and I concur with above discharge treatment plan. Patient presented to the emergency room because of left middle finger pain, redness and swelling and she was found to have acute cellulitis of the left middle finger. Left middle finger was swollen, erythematous and tender on the middle and distal phalanx and there was pressure injury which was unstageable. There was no evidence of sepsis or severe sepsis. She was treated with IV vancomycin and Zosyn. Dr. Sloan consulted. MRI of the left middle finger done and revealed edema of the left middle finger without evidence of acute osteomyelitis or abscess formation. Patient remained afebrile throughout admission and the other vital signs remained stable. Blood culture showed no growth in [address] Sloan stated that there is no indication for surgical intervention. With IV antibiotics, erythema and swelling of the left midfoot improved as well as pain. As mentioned above, patient remained afebrile throughout admission. Patient history of ESRD on hemodialysis and she continued to receive her dialysis on her regular days. Patient discharged home in a stable condition, discharged on Augmentin and doxycycline to complete total of 10 days of treatment, plan to follow-up with Dr. sloan in his office in 1 to 2 weeks, recommended follow-up with PCP in 1 week. - Physical Exam General: Alert, Oriented x3, Cooperative, No apparent distress. HEENT: Atraumatic, PERRLA, EOMI. Neck: Supple, No JVD, Negative Carotid Bruits, Trachea Midline, Thyroid Normal. Lungs: Diminished breath sounds bilateral, otherwise clear, no rhonchi, No wheeze, No rales. Cardiovascular: Regular rate, Regular Rhythm, Normal S1, Normal S2, PMI Normal. Abdomen: Bowel Sounds Present, Soft, Non Tender, Non-Distended, No Hepato-splenomegaly. Extremities: No clubbing, No cyanosis, No edema. Left hand: middle finger is swollen, red, tender, erythematous, significantly improved. Skin: No rashes, No breakdown Neurological: Cranial nerves are intact, neuro grossly intact Vital Signs are stable. This note was generated with [employer] dictation software. It may contain incorrect words, spelling, and punctuation that were not noted in checking the note before signing. - Physical Exam Vitals/I&O's: Vital Signs Temp Pulse Resp BP Pulse Ox 98.0 F 76 20 H 100/58 L 95 12/24/19 10:30 12/24/19 10:30 12/24/19 10:30 12/24/19 10:30 12/24/19 10:30 Oxygen Flow Rate (L/min) 3 Oxygen Delivery Method Room Air Weight: 254 lb 13.67 oz Body Mass Index (BMI) 43.8 Intake and Output for Last 24 Hours 12/22/19 12/23/19 12/24/19 23:59 23:59 23:59 Intake Total 1065 / 1365 1910 / 2310 710.5 / 710.5 Output Total 2300 / 2300 300 / 300 0 / 0 Balance -1235 / -935 1609 / 2009 710.5 / 710.5 Microbiology Past 72 Hours 12/21/19 15:05 Blood Culture (Wb) - Right Forearm Blood Culture - Preliminary No growth in 48 hours. 12/21/19 15:05 Blood Culture (Wb) - Port Blood Culture - Preliminary No growth in 48 hours. Laboratory Results 12/23/19 07:20: TSH 4.60 H 12/23/19 15:23: POC Glucose 205 H 12/23/19 17:30: POC Glucose 194 H 12/23/19 21:29: POC Glucose 152 H 12/24/19 06:21: POC Glucose 96 12/24/19 06:57: WBC 10.8, RBC 3.09 L, Hgb 9.6 L, Hct 29.7 L, MCV 96.1, MCH 31.1, MCHC 32.3, RDW Std Deviation 48.5 H, RDW Coeff of Angela 13.7, Plt Count 176, MPV 11.1, Immature Gran % (Auto) 1.000 H, Neut % (Auto) 62.2, Lymph % (Auto) 21.9, [place] % (Auto) 10.2 H, Eos % (Auto) 4.3, Baso % (Auto) 0.4, Absolute Neuts (auto) 6.7, Absolute Lymphs (auto) 2.36, Nucleated RBC % 0 12/24/19 06:57: Sodium 130 L, Potassium 3.8, Chloride 96 L, Carbon Dioxide 23.0, Anion Gap 11, BUN 36 H, Creatinine 5.53 H, Estim Creat Clear Calc 9.69, Est GFR (MDRD) Af Amer 10 L, Est GFR (MDRD) Non-Af 8 L, BUN/Creatinine Ratio 6.5 L, Glucose 125 H, Calcium 7.7 L, Total Bilirubin 0.50, AST 49 H, ALT 34, Alkaline Phosphatase 349 H, Total Protein 7.2, Albumin 2.5 L, Globulin 4.7 H, Albumin/Globulin Ratio 0.5 L 12/24/19 06:57: Vitamin B12 Pending 12/24/19 12:33: POC Glucose 170 H Current Medications Acetaminophen (Tylenol) 650 mg PO Q6H PRN PRN PRN Reason: Pain Score 1-10/Temp > 100.7 F Last Admin: 12/24/19 12:40 Dose: 650 mg Documented by: Amlodipine Besylate (Norvasc) 10 mg PO DAILY [facility] Last Admin: 12/24/19 10:34 Dose: Not Given Documented by: Aspirin (Ecotrin) 81 mg PO DAILYCM [facility] Last Admin: 12/24/19 10:35 Dose: 81 mg Documented by: Bupropion HCl (Wellbutrin Xl) 300 mg PO DAILY [facility] Last Admin: 12/24/19 10:34 Dose: 300 mg Documented by: Calcitriol (Rocaltrol) 0.25 mcg PO DAILY [facility] Last Admin: 12/24/19 10:36 Dose: 0.25 mcg Documented by: Calcium Acetate (Phoslo Gel Cap) 1,334 mg PO TIDCM [facility] Last Admin: 12/24/19 12:39 Dose: 1,334 mg Documented by: Carvedilol (Coreg) 6.25 mg PO BID [facility] Last Admin: 12/24/19 10:34 Dose: Not Given Documented by: Dextrose (D50w Syringe) 0 gm IV X1 PRN; Protocol PRN Reason: Hypoglycemia Duloxetine HCl (Cymbalta) 60 mg PO DAILY [facility] Last Admin: 12/24/19 10:37 Dose: 60 mg Documented by: Enoxaparin Sodium (Lovenox) 30 mg SC DAILY [facility] Last Admin: 12/24/19 10:36 Dose: 30 mg Documented by: Furosemide (Lasix) 80 mg PO DAILY [facility] Last Admin: 12/24/19 10:34 Dose: 80 mg Documented by: Glucagon () 1 mg IM .X1 PRN PRN Reason: Hypoglycemia Piperacillin Sod/Tazobactam (Sod 3.375 gm/ Sodium Chloride) 50 mls @ 12.5 mls/hr IV Q12 [facility] Last Admin: 12/24/19 10:51 Dose: 12.5 mls/hr Documented by: Vancomycin IV Pharmacy to Dose (1 ea/ Sodium Chloride) 500 mls @ 250 mls/hr IV PRN PRN; Protocol PRN Reason: Rx to Dose Sodium Chloride () 250 mls @ 15 mls/hr IV .[id number] PRN PRN Reason: Saline Flush Last Infusion: 12/24/19 11:34 Dose: 0 mls/hr Documented by: Insulin Glargine (Lantus (Bkc)) 60 units SC QHS [facility] Last Admin: 12/23/19 21:31 Dose: 60 units Documented by: Insulin Human Lispro (Humalog Kwikpen (Bkc)) 28 unit SC TIDAC [facility] Last Admin: 12/24/19 12:37 Dose: 28 u Documented by: Insulin Human Lispro (Humalog Kwikpen (Bkc)) 0 unit SC TIDAC [facility]; Protocol Last Admin: 12/24/19 12:37 Dose: 1 u Documented by: Levothyroxine Sodium (Synthroid) 200 mcg PO DAILY@0600 [facility] Last Admin: 12/24/19 06:15 Dose: 200 mcg Documented by: Losartan Potassium (Cozaar) 50 mg PO DAILY [facility] Last Admin: 12/24/19 10:34 Dose: Not Given Documented by: Nitroglycerin (Nitrostat) 0.4 mg SUBLINGUAL UD PRN PRN Reason: chest pain Ondansetron HCl (Zofran) 4 mg IV Q8H PRN PRN PRN Reason: NAUSEA/VOMITING Last Admin: 12/21/19 23:38 Dose: 4 mg Documented by: Oxycodone HCl (Oxyir) 5 mg PO Q6H PRN PRN PRN Reason: Pain Score 4-10/10 Sodium Chloride () 10 - 40 ml IV UD PRN PRN Reason: SALINE FLUSH Last Admin: 12/22/19 14:25 Dose: 10 ml Documented by: Disposition: Home Minutes spent on discharge:: 32 Patient Condition:: Stable Meaningful Use Info Meaningful Use Diagnoses (Choose all that apply): None applicable Inpatient E&M: [address] [facility]
[2019-12-24 16:26] VITALS: BP 115/63; PULSE 78; RESP 18; TEMP 37; O2SAT 95
--- NOTE | 2019-12-24 16:26 | PN_ITS ---
<Travis Salguero - Last Filed: 12/24/19 16:26> Patient Problems: Active and Suspected Problems (Last Updated 12/21/19 @ 19:[address] Homar Vivar, DO) Pressure injury of upper extremity, unstageable (Acute) left long finger tip Cellulitis of left middle finger (Acute) Vitals/I&O's: Vital Signs Temp Pulse Resp BP Pulse Ox 98.0 F 76 20 H 100/58 L 95 12/24/19 10:30 12/24/19 10:30 12/24/19 10:30 12/24/19 10:30 12/24/19 10:30 Oxygen Flow Rate (L/min) 3 Oxygen Delivery Method Room Air Weight: 254 lb 13.67 oz Body Mass Index (BMI) 43.8 Intake and Output for Last 24 Hours 12/22/19 12/23/19 12/24/19 23:59 23:59 23:59 Intake Total 1065 / 1365 1910 / 2310 710.5 / 710.5 Output Total 2300 / 2300 300 / 300 0 / 0 Balance -1235 / -935 1609 710.5 / 710.5 General: Alert, Cooperative, Confused, - - oriented x2 HEENT: Atraumatic, PERRLA, EOMI, Normocephalic Neck: Supple, No JVD, Negative Carotid Bruits Lungs: Clear to auscultation, Normal air movement Cardiovascular: Regular rate, No murmurs Abdomen: Bowel Sounds Present, Soft, Non Tender, Obese Extremities: No edema, Capillary Refill Less than 3 Seconds Skin: - - left 3rd digit erythema and swelling improved. sensation and ROM intact. Musculoskeletal: No Tenderness to Palpation of Joints or Extremities Neurological: Cranial nerves II-XII grossly intact Psych/Mental Status: Normal Affect, Appropriate, Alert and oriented to time, place, person, mood and affect Microbiology Past 72 Hours 12/21/19 15:05 Blood Culture (Wb) - Right Forearm Blood Culture - Preliminary No growth in 48 hours. 12/21/19 15:05 Blood Culture (Wb) - Port Blood Culture - Preliminary No growth in 48 hours. Laboratory Results 12/23/19 07:20: TSH 4.60 H 12/23/19 17:30: POC Glucose 194 H 12/23/19 21:29: POC Glucose 152 H 12/24/19 06:21: POC Glucose 96 12/24/19 06:57: WBC 10.8, RBC 3.09 L, Hgb 9.6 L, Hct 29.7 L, MCV 96.1, MCH 31.1, MCHC 32.3, RDW Std Deviation 48.5 H, RDW Coeff of Angela 13.7, Plt Count 176, MPV 11.1, Immature Gran % (Auto) 1.000 H, Neut % (Auto) 62.2, Lymph % (Auto) 21.9, [place] % (Auto) 10.2 H, Eos % (Auto) 4.3, Baso % (Auto) 0.4, Absolute Neuts (auto) 6.7, Absolute Lymphs (auto) 2.36, Nucleated RBC % 0 12/24/19 06:57: Sodium 130 L, Potassium 3.8, Chloride 96 L, Carbon Dioxide 23.0, Anion Gap 11, BUN 36 H, Creatinine 5.53 H, Estim Creat Clear Calc 9.69, Est GFR (MDRD) Af Amer 10 L, Est GFR (MDRD) Non-Af 8 L, BUN/Creatinine Ratio 6.5 L, Glucose 125 H, Calcium 7.7 L, Total Bilirubin 0.50, AST 49 H, ALT 34, Alkaline Phosphatase 349 H, Total Protein 7.2, Albumin 2.5 L, Globulin 4.7 H, Albumin/Globulin Ratio 0.5 L 12/24/19 06:57: Vitamin B12 Pending 12/24/19 12:33: POC Glucose 170 H Current Medications Acetaminophen (Tylenol) 650 mg PO Q6H PRN PRN PRN Reason: Pain Score 1-10/Temp > 100.7 F Last Admin: 12/24/19 12:40 Dose: 650 mg Documented by: Amlodipine Besylate (Norvasc) 10 mg PO DAILY COUNTS INCLUDE 234 BEDS AT [facility] Last Admin: 12/24/19 10:34 Dose: Not Given Documented by: [facility] Admin: 12/24/19 10:35 Dose: 81 mg Documented by: Bupropion HCl (Wellbutrin Xl) 300 mg PO DAILY COUNTS INCLUDE 234 BEDS AT THE [facility] Last Admin: 12/24/19 10:34 Dose: 300 mg Documented by: Calcitriol (Rocaltrol) 0.25 mcg PO DAILY COUNTS INCLUDE 234 BEDS AT [facility] Last Admin: 12/24/19 10:36 Dose: 0.25 mcg Documented by: Calcium Acetate (Phoslo Gel Cap) 1,334 mg PO TIDCM COUNTS INCLUDE 234 BEDS AT [facility] Last Admin: 12/24/19 12:39 Dose: 1,334 mg Documented by: Carvedilol (Coreg) 6.25 mg PO BID COUNTS INCLUDE 234 BEDS AT [facility] Last Admin: 12/24/19 10:34 Dose: Not Given Documented by: Dextrose (D50w Syringe) 0 gm IV X1 PRN; Protocol PRN Reason: Hypoglycemia Duloxetine HCl (Cymbalta) 60 mg PO DAILY COUNTS INCLUDE 234 BEDS AT [facility] Last Admin: 12/24/19 10:37 Dose: 60 mg Documented by: Enoxaparin Sodium (Lovenox) 30 mg SC DAILY COUNTS INCLUDE 234 BEDS AT [facility] Last Admin: 12/24/19 10:36 Dose: 30 mg Documented by: Furosemide (Lasix) 80 mg PO DAILY COUNTS INCLUDE 234 BEDS AT [facility] Last Admin: 12/24/19 10:34 Dose: 80 mg Documented by: Glucagon () 1 mg IM .X1 PRN PRN Reason: Hypoglycemia Piperacillin Sod/Tazobactam (Sod 3.375 gm/ Sodium Chloride) 50 mls @ 12.5 mls/hr IV Q12 COUNTS INCLUDE 234 BEDS AT [facility] Last Admin: 12/24/19 10:51 Dose: 12.5 mls/hr Documented by: Vancomycin IV Pharmacy to Dose (1 ea/ Sodium Chloride) 500 mls @ 250 mls/hr IV PRN PRN; Protocol PRN Reason: Rx to Dose Sodium Chloride () 250 mls @ 15 mls/hr IV .[id number] PRN PRN Reason: Saline Flush Last Infusion: 12/24/19 11:34 Dose: 0 mls/hr Documented by: Insulin Glargine (Lantus (Bkc)) 60 units SC QHS COUNTS INCLUDE 234 BEDS AT [facility] Last Admin: 12/23/19 21:31 Dose: 60 units Documented by: Insulin Human Lispro (Humalog Kwikpen (Bkc)) 28 unit SC TIDAC COUNTS INCLUDE 234 BEDS AT [facility] Last Admin: 12/24/19 16:24 Dose: Not Given Documented by: Insulin Human Lispro (Humalog Kwikpen (Bkc)) 0 unit SC TIDAC COUNTS INCLUDE 234 BEDS AT THE [facility]; Protocol Last Admin: 12/24/19 16:25 Dose: Not Given Documented by: Levothyroxine Sodium (Synthroid) 200 mcg PO DAILY@0600 COUNTS INCLUDE 234 BEDS AT [facility] Last Admin: 12/24/19 06:15 Dose: 200 mcg Documented by: Losartan Potassium (Cozaar) 50 mg PO DAILY [facility] Last Admin: 12/24/19 10:34 Dose: Not Given Documented by: Nitroglycerin (Nitrostat) 0.4 mg SUBLINGUAL UD PRN PRN Reason: chest pain Ondansetron HCl (Zofran) 4 mg IV Q8H PRN PRN PRN Reason: NAUSEA/VOMITING Last Admin: 12/21/19 23:38 Dose: 4 mg Documented by: Oxycodone HCl (Oxyir) 5 mg PO Q6H PRN PRN PRN Reason: Pain Score 4-10/10 Sodium Chloride () 10 - 40 ml IV UD PRN PRN Reason: SALINE FLUSH Last Admin: 12/22/19 14:25 Dose: 10 ml Documented by: Medical Necessity - Tobacco Use Smoking Status: Current every day smoker Tobacco Use: Cigarettes Assessment/Plan All Active Problems (Last Updated 12/21/19 @ 19:[address] Homar Vivar, DO) Pressure injury of upper extremity, unstageable (Acute) Cellulitis of left middle finger (Acute) 1. Left 3rd finger cellulitis - Dr. Sloan consulted-plan is to monitor and follow up as outpatient for reassessment, if no improvement or worsening and then may need debridement possible partial ostectomy.. continue vanc/zosyn. Plan to transition to PO abx with doxy/augmentin for total 10 days. WBC normal. No fever. MRI does not demonstrate osteomyelitis or abscess. -complicated by esrd, nicotine abuse, and dmt2 2. ESRD - dialysis yesterday 3. Hx BrCa-in remission 4. DMt2 with morbid obesity-uncontrolled with hyperglycemia. improved. continue current therapy. 5. 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 6. Hx CAD - aspirin, coreg. plavix held. 7. Normocytic anemia-anemia of chronic disease. Will trend. 8. Debility - pt unable to ambulate. ptot ordered. DVT ppx: lovenox This patient was seen by Travis Salguero PA-C under the supervision of Doctor Truman. <Natalie Laughlin - Last Filed: 12/24/19 16:48> Vitals/I&O's: Vital Signs Temp Pulse Resp BP Pulse Ox 98.6 F 78 18 115/63 95 12/24/19 16:26 12/24/19 16:26 12/24/19 16:26 12/24/19 16:26 12/24/19 16:26 Oxygen Flow Rate (L/min) 3 Oxygen Delivery Method Room Air Weight: 254 lb 13.67 oz Body Mass Index (BMI) 43.8 Intake and Output for Last 24 Hours 12/22/19 12/23/19 12/24/19 23:59 23:59 23:59 Intake Total 1065 / 1365 1910 / 2310 1000.5 / 1000.5 Output Total 2300 / 2300 300 / 300 0 / 0 Balance -1235 / -935 161 / 2009 1000.5 / 1000.5 Microbiology Past 72 Hours 12/21/19 15:05 Blood Culture (Wb) - Right Forearm Blood Culture - Preliminary No growth in 48 hours. 12/21/19 15:05 Blood Culture (Wb) - Port Blood Culture - Preliminary No growth in 48 hours. Laboratory Results 12/23/19 07:20: TSH 4.60 H 12/23/19 17:30: POC Glucose 194 H 12/23/19 21:29: POC Glucose 152 H 12/24/19 06:21: POC Glucose 96 12/24/19 06:57: WBC 10.8, RBC 3.09 L, Hgb 9.6 L, Hct 29.7 L, MCV 96.1, MCH 31.1, MCHC 32.3, RDW Std Deviation 48.5 H, RDW Coeff of Angela 13.7, Plt Count 176, MPV 11.1, Immature Gran % (Auto) 1.000 H, Neut % (Auto) 62.2, Lymph % (Auto) 21.9, [place] % (Auto) 10.2 H, Eos % (Auto) 4.3, Baso % (Auto) 0.4, Absolute Neuts (auto) 6.7, Absolute Lymphs (auto) 2.36, Nucleated RBC % 0 12/24/19 06:57: Sodium 130 L, Potassium 3.8, Chloride 96 L, Carbon Dioxide 23.0, Anion Gap 11, BUN 36 H, Creatinine 5.53 H, Estim Creat Clear Calc 9.69, Est GFR (MDRD) Af Amer 10 L, Est GFR (MDRD) Non-Af 8 L, BUN/Creatinine Ratio 6.5 L, Glucose 125 H, Calcium 7.7 L, Total Bilirubin 0.50, AST 49 H, ALT 34, Alkaline Phosphatase 349 H, Total Protein 7.2, Albumin 2.5 L, Globulin 4.7 H, Albumin/Globulin Ratio 0.5 L 12/24/19 06:57: Vitamin B12 Pending 12/24/19 12:33: POC Glucose 170 H 12/24/19 16:23: POC Glucose 77 Current Medications Acetaminophen (Tylenol) 650 mg PO Q6H PRN PRN PRN Reason: Pain Score 1-10/Temp > 100.7 F Last Admin: 12/24/19 12:40 Dose: 650 mg Documented by: Amlodipine Besylate (Norvasc) 10 mg PO DAILY COUNTS INCLUDE 234 BEDS AT [facility] Last Admin: 12/24/19 10:34 Dose: Not Given Documented by: Aspirin (Ecotrin) 81 mg PO DAILYCM COUNTS INCLUDE 234 BEDS AT [facility] Last Admin: 12/24/19 10:35 Dose: 81 mg Documented by: Bupropion HCl (Wellbutrin Xl) 300 mg PO DAILY COUNTS INCLUDE 234 BEDS AT [facility] Last Admin: 12/24/19 10:34 Dose: 300 mg Documented by: Calcitriol (Rocaltrol) 0.25 mcg PO DAILY COUNTS INCLUDE 234 BEDS AT [facility] Last Admin: 12/24/19 10:36 Dose: 0.25 mcg Documented by: Calcium Acetate (Phoslo Gel Cap) 1,334 mg PO TIDCM COUNTS INCLUDE 234 BEDS AT [facility] Last Admin: 12/24/19 12:39 Dose: 1,334 mg Documented by: Carvedilol (Coreg) 6.25 mg PO BID COUNTS INCLUDE 234 BEDS AT [facility] Last Admin: 12/24/19 10:34 Dose: Not Given Documented by: Dextrose (D50w Syringe) 0 gm IV X1 PRN; Protocol PRN Reason: Hypoglycemia Duloxetine HCl (Cymbalta) 60 mg PO DAILY COUNTS INCLUDE 234 BEDS AT [facility] Last Admin: 12/24/19 10:37 Dose: 60 mg Documented by: Enoxaparin Sodium (Lovenox) 30 mg SC DAILY COUNTS INCLUDE 234 BEDS AT [facility] Last Admin: 12/24/19 10:36 Dose: 30 mg Documented by: Furosemide (Lasix) 80 mg PO DAILY COUNTS INCLUDE 234 BEDS AT [facility] Last Admin: 12/24/19 10:34 Dose: 80 mg Documented by: Glucagon () 1 mg IM .X1 PRN PRN Reason: Hypoglycemia Piperacillin Sod/Tazobactam (Sod 3.375 gm/ Sodium Chloride) 50 mls @ 12.5 mls/hr IV Q12 [facility] Last Infusion: 12/24/19 15:00 Dose: Infused Documented by: Vancomycin IV Pharmacy to Dose (1 ea/ Sodium Chloride) 500 mls @ 250 mls/hr IV PRN PRN; Protocol PRN Reason: Rx to Dose Sodium Chloride () 250 mls @ 15 mls/hr IV .[id number] PRN PRN Reason: Saline Flush Last Infusion: 12/24/19 15:00 Dose: 15 mls/hr Documented by: Insulin Glargine (Lantus (Bkc)) 60 units SC QHS [facility] Last Admin: 12/23/19 21:31 Dose: 60 units Documented by: Insulin Human Lispro (Humalog Kwikpen (Bk)) 28 unit SC TIDAC COUNTS INCLUDE 234 BEDS AT [facility] Last Admin: 12/24/19 16:24 Dose: Not Given Documented by: Insulin Human Lispro (Humalog Kwikpen (Bkc)) 0 unit SC TIDAC COUNTS INCLUDE 234 BEDS AT [facility]; Protocol Last Admin: 12/24/19 16:25 Dose: Not Given Documented by: Levothyroxine Sodium (Synthroid) 200 mcg PO DAILY@0600 COUNTS INCLUDE 234 BEDS AT [facility] Last Admin: 12/24/19 06:15 Dose: 200 mcg Documented by: Losartan Potassium (Cozaar) 50 mg PO DAILY COUNTS INCLUDE 234 BEDS AT [facility] Last Admin: 12/24/19 10:34 Dose: Not Given Documented by: Nitroglycerin (Nitrostat) 0.4 mg SUBLINGUAL UD PRN PRN Reason: chest pain Ondansetron HCl (Zofran) 4 mg IV Q8H PRN PRN PRN Reason: NAUSEA/VOMITING Last Admin: 12/21/19 23:38 Dose: 4 mg Documented by: Oxycodone HCl (Oxyir) 5 mg PO Q6H PRN PRN PRN Reason: Pain Score 4-10/10 Sodium Chloride () 10 - 40 ml IV UD PRN PRN Reason: SALINE FLUSH Last Admin: 12/22/19 14:25 Dose: 10 ml Documented by: STROKE Vital Signs/Narrative: Vital Signs Temp Pulse Resp BP Pulse Ox 12/24/19 16:26 98.6 F 78 18 115/63 95 Assessment/Plan Hospitalist note: I am seeing this patient in conjunction with Travis Salguero. I independently seen and examined the patient. Progress note above and laboratory data reviewed and I concur with above treatment plan. Pain of the left middle finger significantly improved as well as erythema and swelling. Remained without fever, no chills. Patient was discharged but nursing staff reported that she has not been able to walk. Initially, patient refused to go to a custodial. Apparently, patient's sister is taking care of her at house but states that she is not able to. Patient has been very weak. Her vital signs are stable. - Physical Exam General: Alert, Oriented x3, Cooperative, No apparent distress. HEENT: Atraumatic, PERRLA, EOMI. Neck: Supple, No JVD, Negative Carotid Bruits, Trachea Midline, Thyroid Normal. Lungs: Diminished breath sounds bilateral, otherwise clear, no rhonchi, No wheeze, No rales. Cardiovascular: Regular rate, Regular Rhythm, Normal S1, Normal S2, PMI Normal. Abdomen: Bowel Sounds Present, Soft, Non Tender, Non-Distended, No Hepato- splenomegaly. Extremities: No clubbing, No cyanosis, No edema. Left hand: Distal middle finger is swollen, red, tender, erythematous. Skin: No rashes, No breakdown Neurological: Cranial nerves are intact, neuro grossly intact Vital Signs are stable. Assessment and plan: #1 acute left middle finger cellulitis: Remained on IV vancomycin and Zosyn. Local erythema and swelling of the left middle finger improved. Patient remained afebrile, other vital signs are stable. Blood cultures showed no growth in 48 hours. MRI reveals no evidence of osteomyelitis or abscess. Dr. Sloan was consulted, plan for medical treatment, no surgical interventions. Plan to continue IV antibiotics. Patient will need placement to senior living facility. #2 physical debility: Today, patient is not able to ambulate, very weak and tired. Initially, refused to go to custodial. She was seen by PT OT which needed significant assistance. Patient lives at home with her sister who states that she will not be able to take care of her at home. Plan for PT OT for now, placement to senior living facility. #3 ESRD on hemodialysis: Receiving hemodialysis as per her schedule. Nephrology consulted. #4 hypothyroidism: continue levothyroxine. TSH elevated at 11.5. Recommend to repeat TSH in 2 weeks. #5 other chronic medical problems: Stable, continue current medications as above. This note was generated with Dragon dictation software. It may contain incorrect words, spelling, and punctuation that were not noted in checking the note before signing. Inpatient E&M: 90303 Subs Hosp L2
[2019-12-24 16:30] LABS: Bedside Glucose 77 mg/dL (70-110)
--- NOTE | 2019-12-24 16:50 | NURSING ---
Blood Sugar only 77. 1 cup of Scotts juice given, finished all of it. Continues to be confused and drowsy like she was this morning. Pt knew she was in [facility] and knew her name and birthday, but did not know the month and thought it was the year 2001. This nurse and Vira, Charge nurse attempted to get pt up out of bed. Pt only able to get to the edge of bed but was not all the way to the edge of bed. Pt could not sit up straight without falling over. Pt has not voided today, this nurse bladder scanned. 23ml were obtained when bladder scanned. Physical therapy & O.T. was supposed to come see pt today but did not.
[2019-12-24 17:45] LABS: Bedside Glucose 86 mg/dL (70-110)
--- NOTE | 2019-12-24 20:43 | PN.SURG_ITS ---
Patient Problems: Active and Suspected Problems (Last Updated 12/21/19 @ 19:[address] Homar Vivar, DO) Cellulitis of left middle finger (Acute) Subjective: Patient states her left long finger feels better with minimal discomfort. - Physical Exam Vitals/I&O's: Vital Signs Temp Pulse Resp BP Pulse Ox 98.6 F 78 18 115/63 95 12/24/19 16:26 12/24/19 16:26 12/24/19 16:26 12/24/19 16:26 12/24/19 16:26 Oxygen Flow Rate (L/min) 3 Oxygen Delivery Method Room Air Weight: 254 lb 13.67 oz Body Mass Index (BMI) 43.8 Intake and Output for Last 24 Hours 12/22/19 12/23/19 12/24/19 23:59 23:59 23:59 Intake Total 1065 / 1365 1910 / 2310 1320.5 / 1320.5 Output Total 2300 / 2300 300 / 300 0 / 0 Balance -1235 / -935 1609 / 2009 1320.5 / 1320.5 General: Alert, Oriented x3 HEENT: PERRLA, EOMI Oral: Moist Mucosa Neck: Supple Abdomen: Soft, Non-Distended Skin: - - On the left hand involving the long finger, there is some blistering and some redness at the tip extending proximally onto the middle phalanx. The blistering is noted on the volar side. Minimal swelling seen. The tip of the finger is nontender. The volar side is soft and nontender. She can make a fist. Flexing the fingers are nontender. Passively extending the fingers are nontender. Does have decreased sensation at the finger tipis. Radial pulses are palpable. Fingers are warm. Decreased capillary refill. No axillary adenopathy. No evidence of acute tenosynovitis. The redness at the tip of the long finger much decreased and almost resolved. Lymphatic: - - no axillary adenopathy. Neurological: Cranial nerves II-XII grossly intact Psych/Mental Status: Normal Affect, Appropriate Microbiology Past 72 Hours 12/21/19 15:05 Blood Culture (Wb) - Right Forearm Blood Culture - Preliminary No growth in 48 hours. 12/21/19 15:05 Blood Culture (Wb) - Port Blood Culture - Preliminary No growth in 48 hours. Laboratory Results 12/23/19 21:29: POC Glucose 152 H 12/24/19 06:21: POC Glucose 96 12/24/19 06:57: WBC 10.8, RBC 3.09 L, Hgb 9.6 L, Hct 29.7 L, MCV 96.1, MCH 31.1, MCHC 32.3, RDW Std Deviation 48.5 H, RDW Coeff of Angela 13.7, Plt Count 176, MPV 11.1, Immature Gran % (Auto) 1.000 H, Neut % (Auto) 62.2, Lymph % (Auto) 21.9, [place] % (Auto) 10.2 H, Eos % (Auto) 4.3, Baso % (Auto) 0.4, Absolute Neuts (auto) 6.7, Absolute Lymphs (auto) 2.36, Nucleated RBC % 0 12/24/19 06:57: Sodium 130 L, Potassium 3.8, Chloride 96 L, Carbon Dioxide 23.0, Anion Gap 11, BUN 36 H, Creatinine 5.53 H, Estim Creat Clear Calc 9.69, Est GFR (MDRD) Af Amer 10 L, Est GFR (MDRD) Non-Af 8 L, BUN/Creatinine Ratio 6.5 L, Glucose 125 H, Calcium 7.7 L, Total Bilirubin 0.50, AST 49 H, ALT 34, Alkaline Phosphatase 349 H, Total Protein 7.2, Albumin 2.5 L, Globulin 4.7 H, Albumin/Globulin Ratio 0.5 L 12/24/19 06:57: Vitamin B12 Pending 12/24/19 12:33: POC Glucose 170 H 12/24/19 16:23: POC Glucose 77 12/24/19 17:38: POC Glucose 86 Current Medications Acetaminophen (Tylenol) 650 mg PO Q6H PRN PRN PRN Reason: Pain Score 1-10/Temp > 100.7 F Last Admin: 12/24/19 12:40 Dose: 650 mg Documented by: Amlodipine Besylate (Norvasc) 10 mg PO DAILY [facility] Last Admin: 12/24/19 10:34 Dose: Not Given Documented by: [facility] Last Admin: 12/24/19 10:35 Dose: 81 mg Documented by: Bupropion HCl (Wellbutrin Xl) 300 mg PO DAILY [facility] Last Admin: 12/24/19 10:34 Dose: 300 mg Documented by: Calcitriol (Rocaltrol) 0.25 mcg PO DAILY [facility] Last Admin: 12/24/19 10:36 Dose: 0.25 mcg Documented by: Calcium Acetate (Phoslo Gel Cap) 1,334 mg PO TIDCM [facility] Last Admin: 12/24/19 17:35 Dose: 1,334 mg Documented by: Carvedilol (Coreg) 6.25 mg PO BID [facility] Last Admin: 12/24/19 10:34 Dose: Not Given Documented by: Dextrose (D50w Syringe) 0 gm IV X1 PRN; Protocol PRN Reason: Hypoglycemia Duloxetine HCl (Cymbalta) 60 mg PO DAILY [facility] Last Admin: 12/24/19 10:37 Dose: 60 mg Documented by: Enoxaparin Sodium (Lovenox) 30 mg SC DAILY [facility] Last Admin: 12/24/19 10:36 Dose: 30 mg Documented by: Furosemide (Lasix) 80 mg PO DAILY [facility] Last Admin: 12/24/19 10:34 Dose: 80 mg Documented by: Glucagon () 1 mg IM .X1 PRN PRN Reason: Hypoglycemia Piperacillin Sod/Tazobactam (Sod 3.375 gm/ Sodium Chloride) 50 mls @ 12.5 mls/hr IV Q12 [facility] Last Infusion: 12/24/19 15:00 Dose: Infused Documented by: Vancomycin IV Pharmacy to Dose (1 ea/ Sodium Chloride) 500 mls @ 250 mls/hr IV PRN PRN; Protocol PRN Reason: Rx to Dose Sodium Chloride () 250 mls @ 15 mls/hr IV .[id number] PRN PRN Reason: Saline Flush Last Infusion: 12/24/19 15:00 Dose: 15 mls/hr Documented by: Insulin Glargine (Lantus (Bkc)) 60 units SC QHS [facility] Last Admin: 12/23/19 21:31 Dose: 60 units Documented by: Insulin Human Lispro (Humalog Kwikpen (Bkc)) 28 unit SC TIDAC [facility] Last Admin: 12/24/19 16:24 Dose: Not Given Documented by: Insulin Human Lispro (Humalog Kwikpen (Bkc)) 0 unit SC TIDAC [facility]; Protocol Last Admin: 12/24/19 16:25 Dose: Not Given Documented by: Levothyroxine Sodium (Synthroid) 200 mcg PO DAILY@0600 [facility] Last Admin: 12/24/19 06:15 Dose: 200 mcg Documented by: Losartan Potassium (Cozaar) 50 mg PO DAILY [facility] Last Admin: 12/24/19 10:34 Dose: Not Given Documented by: Nitroglycerin (Nitrostat) 0.4 mg SUBLINGUAL UD PRN PRN Reason: chest pain Ondansetron HCl (Zofran) 4 mg IV Q8H PRN PRN PRN Reason: NAUSEA/VOMITING Last Admin: 12/21/19 23:38 Dose: 4 mg Documented by: Oxycodone HCl (Oxyir) 5 mg PO Q6H PRN PRN PRN Reason: Pain Score 4-10/10 Sodium Chloride () 10 - 40 ml IV UD PRN PRN Reason: SALINE FLUSH Last Admin: 12/22/19 14:25 Dose: 10 ml Documented by: Medical Necessity - Tobacco Use Smoking Status: Current every day smoker Tobacco Use: Cigarettes Assessment/Plan All Active Problems (Last Updated 12/21/19 @ 19:[address] Homar Vivar, DO) Pressure injury of upper extremity, unstageable (Acute) Cellulitis of left middle finger (Acute) 1. Left long finger tip pressure injury infection with blistering and cellulitis. 2. Diabetes mellitus. 3. ESRD on dialysis. 4. Smoker. Continue IV antibiotics with Vancomycin and Zosyn. No clinical evidence of tenosynovitis. There is no urgent need for surgical intervention at this time. Will monitor the left finger tip closely. If the infection spreads more proximally despite IV antibiotics, then would need operative intervention and debridement including a partial ostectomy to evaluate for osteomyelitis. If surgery is necessary, would leave the wound open and start daily Silver dressing changes. If a wound is created after surgical debridement, I anticipate a prolonged healing process. Could be a pressure injury type infection. Ultimately may need an amputation. Patient voices understanding. Could be a vascular issue. Would benefit from noninvasive arterial doppler studies. She is at risk for having vascular issues in her finger tips including diabetes mellitus, ESRD on dialysis, and smoking. Her medical co-morbidities decrease her immune system so an autoimmune process could be present, such as scleroderma or Raynaud's. HgbA1c was 7.7. Patient was informed of the risks and complications of the procedure including alternatives to surgery. These were discussed with the patient personally. Patient voices understanding and wishes to proceed with the current plan of IV antibiotics. She is aware that surgery may be necessary. If no surgery is done during this admission, she will see me weekly in the office to closely monitor for any changes that would necessitate operative intervention. If the infection does not spread more proximally and doesn't resolve with IV antibiotics, she would still need operative debridement. Ideally would like to stabilize the finger enough that if an amputation is done, it can be done as distally as possible. At this time, the redness is almost resolved. Her left long finger tip is nontender. Ok for discharge from my standpoint on po antibiotics. Encouraged patient to stop smoking as it may have deleterious effects on wound healing. Inpatient E&M: 57324 Subs Hosp L1 - ICD-10 - L03.112, L89.890, E11.9, N18.6, F17.200
[2019-12-24 22:00] VITALS: BP 153/54; PULSE 77; RESP 18; TEMP 36.4; O2SAT 97
[2019-12-24] MEDS: Carvedilol 6.25 MG Tablet PO (23:47)
[2019-12-24 23:51] LABS: Bedside Glucose 172 mg/dL (70-110)
[2019-12-25 04:11] VITALS: BP 99/45; PULSE 74; RESP 18; TEMP 36.6; O2SAT 100
[2019-12-25 04:26] LABS: Bedside Glucose 113 mg/dL (70-110)
[2019-12-25] MEDS: Levothyroxine 100 MCG Tablet 200 MCG PO (05:30)
[2019-12-25 06:43] LABS: Anion Gap 14 (5-15); BUN 44 mg/dL (7-18); Calcium,Total 7.4 mg/dL (8.5-10.1); Chloride 91 mmol/L (98-107); Creatinine, Serum 6.32 mg/dL (0.55-1.02); EST Glomerular Filtration Rate 7 mL/min (>60); Est Glom Filt Rate - Afr Amer 9 mL/min (>60); Estimated Creatinine Clearance 8.48 ml/min; Glucose 93 mg/dL (74-106); Potassium 4.1 mmol/L (3.5-5.1); Sodium Level 123 mmol/L (136-145)
[2019-12-25 06:44] LABS: Vancomycin, Random Level 22.3 ug/mL (0.0-15.0)
--- NOTE | 2019-12-25 06:56 | PCM.RX.CS ---
Consult Pharmacy has been consulted to manage selected antiobiotic: Vancomycin Type of Consult: Follow-up Suspected Infection: Skin/Soft tissue Labs: Sodium 123 mmol/L (136-145) L 12/25/19 05:26 Potassium 4.1 mmol/L (3.5-5.1) 12/25/19 05:26 Chloride 91 mmol/L (98-107) L 12/25/19 05:26 Carbon Dioxide 18.0 mmol/L (21.0-32.0) L 12/25/19 05:26 Anion Gap 14 (5-15) 12/25/19 05:26 BUN 44 mg/dL (7-18) H 12/25/19 05:26 Creatinine 6.32 mg/dL (0.55-1.02) H 12/25/19 05:26 Est GFR (MDRD) Af Amer 9 mL/min (>60) L 12/25/19 05:26 Est GFR (MDRD) Non-Af 7 mL/min (>60) L 12/25/19 05:26 BUN/Creatinine Ratio 7.0 RATIO (10-20) L 12/25/19 05:26 Glucose 93 mg/dL (74-106) 12/25/19 05:26 Random Vancomycin 22.3 ug/mL (0.0-15.0) H 12/25/19 05:26 Microbiology: Microbiology 12/21/19 15:05 Blood Culture (Wb) - Right Forearm Blood Culture - Preliminary No growth in 48 hours. 12/21/19 15:05 Blood Culture (Wb) - Port Blood Culture - Preliminary No growth in 48 hours. Weight used for dosin kg Estimated Creatinine Clearance: 8.48 Goal Trough: 15-20 mcg/mL Pharmacy Plan for Drug Dosing: Random vancomycin level was 22.3, so the post-dialysis dose for 12/25/19 will be held. Another random level will be drawn pre-dialysis 12/27/19 and further dosing determined from that result. Pharmacy Service will continue to monitor and adjust dosing as required. Follow-Up Labs: Trough Vancomycin - random Labs to be done on [date and time ordered]: 12/27/19 @0600
[2019-12-25 08:08] VITALS: BP 112/75; PULSE 79; RESP 18; TEMP 36.4; O2SAT 94
[2019-12-25 08:11] LABS: Bedside Glucose 88 mg/dL (70-110)
[2019-12-25] MEDS: Aspirin E.C. 81 MG Tablet PO (08:14)
[2019-12-25] MEDS: Calcium Acetate 667 MG Capsule 1334 MG PO ×3 (08:14→17:23)
--- NOTE | 2019-12-25 10:15 | UEAS_ITS ---
Reason For Study: Infected 3rd digit with redness and blister. Arm Seg Pressures Lt Brachial pressure = 143 mmHg. Lt Radial pressure = 146 mmHg. Lt Ulnar pressure = 171 mmHg. 3rd Digit Pressure of 133 mmHg. FBI is .93. Radial and Ulnar doppler waveforms are Triphasic in both right and left upper extremities. Interpretation Summary Triphasic Doppler waveforms are noted in the radial and ulnar arteries bilaterally. Pulse-volume recordings appear satisfactory at all levels on the left, including upper arm, forearm, wrist, and all five digits of the left hand. The left wrist-brachial index is normal. The left digital-brachial index is normal. There is no evidence of an arterial occlusive process in the left upper extremity. Ordering Physician: Denis Sloan Performed By: SOFIA CERVANTES T
[2019-12-25] MEDS: Enoxaparin 30 MG/0.3 ML Syringe SC (10:39)
[2019-12-25] MEDS: Calcitriol 0.25 MCG Capsule PO (10:40)
[2019-12-25] MEDS: DULoxetine Hcl 60 MG Capsule PO (10:41)
[2019-12-25] MEDS: buPROPion (XL) 150 MG TABLET.XL 300 MG PO (10:42)
[2019-12-25] MEDS: Acetaminophen 325 MG Tablet 650 MG PO (10:51)
[2019-12-25 11:33] LABS: Rheumatoid Factor < 10.0 IU/mL (<15)
[2019-12-25 11:41] LABS: Bedside Glucose 207 mg/dL (70-110)
[2019-12-25] MEDS: Insulin Lispro 100 UNIT/ML INSULN.PEN SC (12:07)
[2019-12-25] MEDS: Insulin Lispro 100 UNIT/ML INSULN.PEN 28 UNIT SC ×2 (12:09→17:27)
--- NOTE | 2019-12-25 13:35 | PCM.PN.HOSP ---
<Travis Salguero - Last Filed: 12/25/19 13:35> Patient Problems: Active and Suspected Problems (Last Updated 12/21/19 @ 19:[address] Homar Vivar, DO) Cellulitis of left middle finger (Acute) Reason for Visit: left 3rd digit infection Subjective: Pt very weak. Pt wanted to go home however she was too weak to stand on her own or take any steps. Today the patient remains very weak requiring 2 to hold her up on her feet and she cannot walk. She is A/Ox2 person place, thinks it is 2000 however knows the president. The patient has no fever/chills, SOB or cough. The finger is improving. The blister opened and does not currently have any drainage. Erythema and swelling improved. ROM intact. No pain or tenderness. Vitals/I&O's: Vital Signs Temp Pulse Resp BP Pulse Ox 97.5 F L 79 18 112/75 94 12/25/19 08:08 12/25/19 08:08 12/25/19 08:08 12/25/19 08:08 12/25/19 08:08 Oxygen Flow Rate (L/min) 3 Oxygen Delivery Method Room Air Weight: 254 lb 13.67 oz Body Mass Index (BMI) 43.8 Intake and Output for Last 24 Hours 12/23/19 12/24/19 12/25/19 23:59 23:59 23:59 Intake Total 1910 / 2310 1320.5 / 1820.5 989.5 / 989.5 Output Total 300 / 300 0 / 0 Balance 1609 1320.5 / 1820.5 989.5 / 989.5 General: Alert, Oriented x3, Cooperative HEENT: Atraumatic, PERRLA, EOMI, Normocephalic Neck: Supple, No JVD, Negative Carotid Bruits Lungs: Clear to auscultation, Normal air movement Cardiovascular: Regular rate, No murmurs Abdomen: Bowel Sounds Present, Soft, Non Tender Extremities: No edema, Capillary Refill Less than 3 Seconds Skin: No rashes, No breakdown, - - skin erythema improved. swelling improved. nontender. sensation intact. blister open no expressable drainage. ROM intact. re-dressed. Musculoskeletal: No Tenderness to Palpation of Joints or Extremities Neurological: Cranial nerves II-XII grossly intact Psych/Mental Status: Normal Affect, Appropriate, Alert and oriented to time, place, person, mood and affect Microbiology Past 72 Hours 12/21/19 15:05 Blood Culture (Wb) - Right Forearm Blood Culture - Preliminary No growth in 48 hours. 12/21/19 15:05 Blood Culture (Wb) - Port Blood Culture - Preliminary No growth in 48 hours. Laboratory Results 12/24/19 16:23: POC Glucose 77 12/24/19 17:38: POC Glucose 86 12/24/19 23:41: POC Glucose 172 H 12/25/19 04:14: POC Glucose 113 H 12/25/19 05:26: Random Vancomycin 22.3 H 12/25/19 05:26: Sodium 123 L, Potassium 4.1, Chloride 91 L, Carbon Dioxide 18.0 L, Anion Gap 14, BUN 44 H, Creatinine 6.32 H, Estim Creat Clear Calc 8.48, Est GFR (MDRD) Af Amer 9 L, Est GFR (MDRD) Non-Af 7 L, BUN/Creatinine Ratio 7.0 L, Glucose 93, Calcium 7.4 L 12/25/19 05:26: Rheumatoid Factor < 10.0 12/25/19 07:59: POC Glucose 88 12/25/19 11:34: POC Glucose 207 H 12/25/19 12:21: Hep Bs Antigen Pending Current Medications Acetaminophen (Tylenol) 650 mg PO Q6H PRN PRN PRN Reason: Pain Score 1-10/Temp > 100.7 F Last Admin: 12/25/19 10:51 Dose: 650 mg Documented by: Amlodipine Besylate (Norvasc) 10 mg PO DAILY [facility] Last Admin: 12/25/19 10:40 Dose: Not Given Documented by: [facility] Last Admin: 12/25/19 08:14 Dose: 81 mg Documented by: Bupropion HCl (Wellbutrin Xl) 300 mg PO DAILY [facility] Last Admin: 12/25/19 10:42 Dose: 300 mg Documented by: Calcitriol (Rocaltrol) 0.25 mcg PO DAILY [facility] Last Admin: 12/25/19 10:40 Dose: 0.25 mcg Documented by: Calcium Acetate (Phoslo Gel Cap) 1,334 mg PO TIDCM [facility] Last Admin: 12/25/19 12:08 Dose: 1,334 mg Documented by: Carvedilol (Coreg) 6.25 mg PO BID [facility] Last Admin: 12/25/19 10:36 Dose: Not Given Documented by: Dextrose (D50w Syringe) 0 gm IV X1 PRN; Protocol PRN Reason: Hypoglycemia Duloxetine HCl (Cymbalta) 60 mg PO DAILY [facility] Last Admin: 12/25/19 10:41 Dose: 60 mg Documented by: Enoxaparin Sodium (Lovenox) 30 mg SC DAILY [facility] Last Admin: 12/25/19 10:39 Dose: 30 mg Documented by: Furosemide (Lasix) 80 mg PO DAILY [facility] Last Admin: 12/25/19 11:39 Dose: Not Given Documented by: Glucagon () 1 mg IM .X1 PRN PRN Reason: Hypoglycemia Piperacillin Sod/Tazobactam (Sod 3.375 gm/ Sodium Chloride) 50 mls @ 12.5 mls/hr IV Q12 [facility] Last Admin: 12/25/19 10:37 Dose: 12.5 mls/hr Documented by: Vancomycin IV Pharmacy to Dose (1 ea/ Sodium Chloride) 500 mls @ 250 mls/hr IV PRN PRN; Protocol PRN Reason: Rx to Dose Sodium Chloride () 250 mls @ 15 mls/hr IV .[id number] PRN PRN Reason: Saline Flush Last Admin: 12/25/19 10:37 Dose: 15 mls/hr Documented by: Insulin Glargine (Lantus (Bkc)) 60 units SC QHS [facility] Last Admin: 12/24/19 23:46 Dose: 60 units Documented by: Insulin Human Lispro (Humalog Kwikpen (Bkc)) 28 unit SC TIDAC [facility] Last Admin: 12/25/19 12:09 Dose: 28 u Documented by: Insulin Human Lispro (Humalog Kwikpen (Bkc)) 0 unit SC TIDAC [facility]; Protocol Last Admin: 12/25/19 12:07 Dose: 2 u Documented by: Levothyroxine Sodium (Synthroid) 200 mcg PO DAILY@0600 [facility] Last Admin: 12/25/19 05:30 Dose: 200 mcg Documented by: Losartan Potassium (Cozaar) 50 mg PO DAILY [facility] Last Admin: 12/25/19 10:36 Dose: Not Given Documented by: Nitroglycerin (Nitrostat) 0.4 mg SUBLINGUAL UD PRN PRN Reason: chest pain Ondansetron HCl (Zofran) 4 mg IV Q8H PRN PRN PRN Reason: NAUSEA/VOMITING Last Admin: 12/21/19 23:38 Dose: 4 mg Documented by: Oxycodone HCl (Oxyir) 5 mg PO Q6H PRN PRN PRN Reason: Pain Score 4-10/10 Sodium Chloride () 10 - 40 ml IV UD PRN PRN Reason: SALINE FLUSH Last Admin: 12/22/19 14:25 Dose: 10 ml Documented by: Medical Necessity - Tobacco Use Smoking Status: Current every day smoker Tobacco Use: Cigarettes Assessment/Plan All Active Problems (Last Updated 12/21/19 @ 19:[address] Homar Vivar, ) Pressure injury of upper extremity, unstageable (Acute) Cellulitis of left middle finger (Acute) 1. Left 3rd finger cellulitis - Dr. Sloan consulted-plan is to monitor and follow up as outpatient for reassessment, if no improvement or worsening and then may need debridement possible partial ostectomy.. continue vanc/zosyn. Plan to transition to PO abx at dc with doxy/augmentin for total 10 days. WBC normal. No fever. MRI does not demonstrate osteomyelitis or abscess. -complicated by esrd, nicotine abuse, and dmt2 -swelling erythema ROM all improved. blister opened now no expressible drainage. 2. ESRD - dialysis today. bmp in AM. sodium down. 3. Hx BrCa-in remission 4. DMt2 with morbid obesity-uncontrolled with hyperglycemia. improved. continue current therapy. 5. 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 6. Hx CAD - aspirin, coreg. plavix held. 7. Normocytic anemia-anemia of chronic disease. Will trend. 8. Debility - pt unable to ambulate or stand on her own. ptot ordered. DVT ppx: lovenox DC planning: i discussed the need for SNF at dc and patient verbalizes understanding and agreement. This patient was seen by Travis Salguero PA-C under the supervision of Doctor Truman. <Natalie Laughlin E - Last Filed: 12/26/19 11:18> Vitals/I&O's: Vital Signs Temp Pulse Resp BP Pulse Ox 98.0 F 76 16 127/65 H 94 12/25/19 15:51 12/25/19 15:51 12/25/19 15:51 12/25/19 15:51 12/25/19 14:10 Oxygen Flow Rate (L/min) 3 Oxygen Delivery Method Room Air Weight: 254 lb 13.67 oz Body Mass Index (BMI) 43.8 Intake and Output for Last 24 Hours 12/23/19 12/24/19 12/25/19 23:59 23:59 23:59 Intake Total 1910 / 2310 1320.5 / 1820.5 1439.5 / 1439.5 Output Total 300 / 300 0 / 0 1999 Balance 1609 1320.5 / 1820.5 -560.5 / -560.5 Microbiology Past 72 Hours 12/21/19 15:05 Blood Culture (Wb) - Right Forearm Blood Culture - Preliminary No growth in 48 hours. 12/21/19 15:05 Blood Culture (Wb) - Port Blood Culture - Preliminary No growth in 48 hours. Laboratory Results 12/24/19 17:38: POC Glucose 86 12/24/19 23:41: POC Glucose 172 H 12/25/19 04:14: POC Glucose 113 H 12/25/19 05:26: Random Vancomycin 22.3 H 12/25/19 05:26: Sodium 123 L, Potassium 4.1, Chloride 91 L, Carbon Dioxide 18.0 L, Anion Gap 14, BUN 44 H, Creatinine 6.32 H, Estim Creat Clear Calc 8.48, Est GFR (MDRD) Af Amer 9 L, Est GFR (MDRD) Non-Af 7 L, BUN/Creatinine Ratio 7.0 L, Glucose 93, Calcium 7.4 L 12/25/19 05:26: Rheumatoid Factor < 10.0 12/25/19 07:59: POC Glucose 88 12/25/19 11:34: POC Glucose 207 H 12/25/19 12:21: Hep Bs Antigen Pending Current Medications Acetaminophen (Tylenol) 650 mg PO Q6H PRN PRN PRN Reason: Pain Score 1-10/Temp > 100.7 F Last Admin: 12/25/19 10:51 Dose: 650 mg Documented by: Amlodipine Besylate (Norvasc) 10 mg PO DAILY [facility] Last Admin: 12/25/19 10:40 Dose: Not Given Documented by: Aspirin (Ecotrin) 81 mg PO DAILYCM [facility] Last Admin: 12/25/19 08:14 Dose: 81 mg Documented by: Bupropion HCl (Wellbutrin Xl) 300 mg PO DAILY [facility] Last Admin: 12/25/19 10:42 Dose: 300 mg Documented by: Calcitriol (Rocaltrol) 0.25 mcg PO DAILY [facility] Last Admin: 12/25/19 10:40 Dose: 0.25 mcg Documented by: Calcium Acetate (Phoslo Gel Cap) 1,334 mg PO TIDCM [facility] Last Admin: 12/25/19 12:08 Dose: 1,334 mg Documented by: Carvedilol (Coreg) 6.25 mg PO BID [facility] Last Admin: 12/25/19 10:36 Dose: Not Given Documented by: Dextrose (D50w Syringe) 0 gm IV X1 PRN; Protocol PRN Reason: Hypoglycemia Duloxetine HCl (Cymbalta) 60 mg PO DAILY [facility] Last Admin: 12/25/19 10:41 Dose: 60 mg Documented by: Enoxaparin Sodium (Lovenox) 30 mg SC DAILY [facility] Last Admin: 12/25/19 10:39 Dose: 30 mg Documented by: Furosemide (Lasix) 80 mg PO DAILY [facility] Last Admin: 12/25/19 11:39 Dose: Not Given Documented by: Glucagon () 1 mg IM .X1 PRN PRN Reason: Hypoglycemia Piperacillin Sod/Tazobactam (Sod 3.375 gm/ Sodium Chloride) 50 mls @ 12.5 mls/hr IV Q12 [facility] Last Infusion: 12/25/19 14:44 Dose: Infused Documented by: Vancomycin IV Pharmacy to Dose (1 ea/ Sodium Chloride) 500 mls @ 250 mls/hr IV PRN PRN; Protocol PRN Reason: Rx to Dose Sodium Chloride () 250 mls @ 15 mls/hr IV .[id number] PRN PRN Reason: Saline Flush Last Admin: 12/25/19 10:37 Dose: 15 mls/hr Documented by: Insulin Glargine (Lantus (Bk)) 60 units SC QHS [facility] Last Admin: 12/24/19 23:46 Dose: 60 units Documented by: Insulin Human Lispro (Humalog Kwikpen ([facility])) 28 unit SC TIDAC [facility] Last Admin: 12/25/19 12:09 Dose: 28 u Documented by: Insulin Human Lispro (Humalog Kwikpen (Bkc)) 0 unit SC TIDAC [facility]; Protocol Last Admin: 12/25/19 12:07 Dose: 2 u Documented by: Levothyroxine Sodium (Synthroid) 200 mcg PO DAILY@0600 [facility] Last Admin: 12/25/19 05:30 Dose: 200 mcg Documented by: Losartan Potassium (Cozaar) 50 mg PO DAILY [facility] Last Admin: 12/25/19 10:36 Dose: Not Given Documented by: Nitroglycerin (Nitrostat) 0.4 mg SUBLINGUAL UD PRN PRN Reason: chest pain Ondansetron HCl (Zofran) 4 mg IV Q8H PRN PRN PRN Reason: NAUSEA/VOMITING Last Admin: 12/21/19 23:38 Dose: 4 mg Documented by: Oxycodone HCl (Oxyir) 5 mg PO Q6H PRN PRN PRN Reason: Pain Score 4-10/10 Sodium Chloride () 10 - 40 ml IV UD PRN PRN Reason: SALINE FLUSH Last Admin: 12/22/19 14:25 Dose: 10 ml Documented by: STROKE Vital Signs/Narrative: Vital Signs Temp Pulse Resp BP Pulse Ox 12/25/19 15:51 98.0 F 76 16 127/65 H 12/25/19 14:10 97.7 F L 78 20 H 110/52 L 94 Assessment/Plan Hospitalist note: I am seeing this patient in conjunction with Travis Salguero. I independently seen and examined the patient. Progress note above and laboratory data reviewed and I concur with above treatment plan. Pain of the left middle finger significantly improved as well as erythema and swelling. Today, patient is very weak, requiring significant assistance to take couple steps. Remained without fever, no chills. Her vital signs are stable. - Physical Exam General: Alert, Oriented x3, Cooperative, No apparent distress. HEENT: Atraumatic, PERRLA, EOMI. Neck: Supple, No JVD, Negative Carotid Bruits, Trachea Midline, Thyroid Normal. Lungs: Diminished breath sounds bilateral, otherwise clear, no rhonchi, No wheeze, No rales. Cardiovascular: Regular rate, Regular Rhythm, Normal S1, Normal S2, PMI Normal. Abdomen: Bowel Sounds Present, Soft, Non Tender, Non-Distended, No Hepato-splenomegaly. Extremities: No clubbing, No cyanosis, No edema. Left hand: Distal middle finger is swollen, red, tender, erythematous. Skin: No rashes, No breakdown Neurological: Cranial nerves are intact, neuro grossly intact Vital Signs are stable. Assessment and plan: #1 acute left middle finger cellulitis: Remained on IV vancomycin and Zosyn. Local erythema and swelling of the left middle finger continue to improve. Patient remained afebrile, other vital signs are stable. Blood cultures showed no growth in 48 hours. MRI reveals no evidence of osteomyelitis or abscess. Dr. Sloan was consulted, plan for medical treatment, no surgical interventions. Plan to continue IV antibiotics may do can switch her to p.o. antibiotics tomorrow. Patient will need [facility] to [facility]. #2 physical debility: Today, patient is not able to ambulate, very weak and tired. Initially, refused to go to residential. She was seen by PT OT which needed significant assistance. Patient lives at home with her sister who states that she will not be able to take care of her at home. Awaiting placement to prison facility. #3 ESRD on hemodialysis: Receiving hemodialysis as per her schedule. Nephrology consulted. #4 hypothyroidism: continue levothyroxine. TSH elevated at 11.5. Recommend to repeat TSH in 2 weeks. #5 other chronic medical problems: Stable, continue current medications as above. This note was generated with [employer] dictation software. It may contain incorrect words, spelling, and punctuation that were not noted in checking the note before signing. Inpatient E&M: 95622 Subs Hosp L2
[2019-12-25 14:10] VITALS: BP 110/52; PULSE 78; RESP 20; TEMP 36.5; O2SAT 94
[2019-12-25 15:51] VITALS: BP 127/65; PULSE 76; RESP 16; TEMP 36.7
--- NOTE | 2019-12-25 15:52 | DIALYSIS ---
HD x 3.5 hours complete. Tolerated fairly well. Ran on 3k bath. UF of 2000ml. Used right chest wall catheter. Catheter closed with heparin per fill volume. Caps placed. Dressing is dry and intact. Report was given to FLORI Cavazos.
[2019-12-25 16:55] VITALS: BP 130/62; PULSE 77; RESP 18; TEMP 37.1; O2SAT 96
[2019-12-25 17:10] LABS: Bedside Glucose 134 mg/dL (70-110)
[2019-12-25 20:15] VITALS: BP 131/64; PULSE 83; RESP 20; TEMP 37.1; O2SAT 98
[2019-12-25 20:51] LABS: Bedside Glucose 122 mg/dL (70-110)
[2019-12-25] MEDS: Carvedilol 6.25 MG Tablet PO (22:50)
[2019-12-25] MEDS: 0.9% Saline Lock 10 ML Syringe IV (22:55)
[2019-12-25 23:11] LABS: Bedside Glucose 107 mg/dL (70-110)
[2019-12-26 02:15] VITALS: BP 99/60; PULSE 80; RESP 18; TEMP 36.8; O2SAT 98
[2019-12-26] MEDS: Levothyroxine 100 MCG Tablet 200 MCG PO (05:24)
[2019-12-26 05:50] LABS: Anion Gap 9 (5-15); BUN 31 mg/dL (7-18); BUN/Creat Ratio 6.8 RATIO (10-20); Calcium,Total 7.5 mg/dL (8.5-10.1); Chloride 95 mmol/L (98-107); Creatinine, Serum 4.56 mg/dL (0.55-1.02); EST Glomerular Filtration Rate 11 mL/min (>60); Est Glom Filt Rate - Afr Amer 13 mL/min (>60); Estimated Creatinine Clearance 11.75 ml/min; Glucose 91 mg/dL (74-106); Potassium 3.9 mmol/L (3.5-5.1); Sodium Level 129 mmol/L (136-145)
[2019-12-26 06:41] LABS: Bedside Glucose 86 mg/dL (70-110)
[2019-12-26 09:39] VITALS: BP 110/47; PULSE 78; RESP 18; TEMP 36.9; O2SAT 96
[2019-12-26] MEDS: Furosemide 80 MG Tablet PO (09:48)
[2019-12-26] MEDS: buPROPion (XL) 150 MG TABLET.XL 300 MG PO (09:48)
[2019-12-26] MEDS: Losartan Potassium 50 MG Tablet PO (09:49)
[2019-12-26] MEDS: DULoxetine Hcl 60 MG Capsule PO (09:49)
[2019-12-26] MEDS: Aspirin E.C. 81 MG Tablet PO (09:49)
[2019-12-26] MEDS: Carvedilol 6.25 MG Tablet PO ×2 (09:49→20:56)
[2019-12-26] MEDS: amLODIPine 10 MG Tablet PO (09:49)
[2019-12-26] MEDS: Enoxaparin 30 MG/0.3 ML Syringe SC (09:50)
[2019-12-26] MEDS: Calcium Acetate 667 MG Capsule 1334 MG PO ×3 (09:50→16:58)
[2019-12-26] MEDS: Calcitriol 0.25 MCG Capsule PO (09:51)
--- NOTE | 2019-12-26 09:55 | CASEMGMT ---
FLORI YU in to discuss discharge planning with patient. Patient states she would like to go to SNF at discharge. FLORI YU provided patient list of in-network facilities in [facility], patient on dialysis at [facility] [place]. Patient has been to [facility] in the past and would prefer there again. FLORI YU updated SW regarding requests for [facility].
[2019-12-26 10:10] LABS: Vitamin B12 603 pg/mL (211-911)
[2019-12-26 10:17] LABS: Hepatitis B Surface Antigen Non-Reactive (Nonreactive)
--- NOTE | 2019-12-26 10:30 | CASEMGMT ---
Addendum entered by Genna Ellington 12/26/19 16:12: SW received message from Sheila at [facility] stating they are able to accept pt and will submit for pre-cert. Sheila states she will get transportation arranged for pt to receive dialysis. ANAHY updated RN CM who updated pt. Plan: [facility] pending pre-cert Original Note: Social Work Note SW received referral for SNF placement and that pt prefers [facility]. ANAHY placed a call to Sheila at [facility] and provided referral. SW faxed referral to [facility]. Plan: SNF pending acceptance and pre-cert Genna Ellington BILLET CHECKER, INSURANCE CLAIM REPRESENTATIVE
[2019-12-26 11:46] LABS: Bedside Glucose 120 mg/dL (70-110)
[2019-12-26 11:55] LABS: Bedside Glucose 124 mg/dL (70-110)
--- NOTE | 2019-12-26 12:07 | PCM.PN.HOSP ---
<Travis Salguero - Last Filed: 12/26/19 12:07> Patient Problems: Active and Suspected Problems (Last Updated 12/21/19 @ 19:[address] Homar Vivar, DO) Cellulitis of left middle finger (Acute) Reason for Visit: cellulitis Subjective: No finger pain. No nausea/vomiting, diarrhea. No SOB. No fever/chills. Very weak, still unable to stand on her own. Vitals/I&O's: Vital Signs Temp Pulse Resp BP Pulse Ox 98.4 F 78 18 110/47 L 96 12/26/19 09:39 12/26/19 09:39 12/26/19 09:39 12/26/19 09:39 12/26/19 09:39 Oxygen Flow Rate (L/min) 3 Oxygen Delivery Method Room Air Weight: 254 lb 13.67 oz Body Mass Index (BMI) 43.8 Intake and Output for Last 24 Hours 12/24/19 12/25/19 12/26/19 23:59 23:59 23:59 Intake Total 1320.5 / 1820.5 2071.5 / 2311.5 838 / 838 Output Total 0 / 0 1999 / 1999 0 / 0 Balance 1320.5 / 1820.5 71.5 / 311.5 838 / 838 General: Alert, Oriented x3, Cooperative HEENT: Atraumatic, PERRLA, EOMI, Normocephalic Neck: Supple, No JVD, Negative Carotid Bruits Lungs: Clear to auscultation, Normal air movement Cardiovascular: Regular rate, No murmurs Abdomen: Bowel Sounds Present, Soft, Non Tender, Obese Extremities: No edema, Capillary Refill Less than 3 Seconds Skin: No rashes, No breakdown Musculoskeletal: No Tenderness to Palpation of Joints or Extremities Neurological: Cranial nerves II-XII grossly intact Psych/Mental Status: Normal Affect, Appropriate, Alert and oriented to time, place, person, mood and affect Microbiology Past 72 Hours 12/21/19 15:05 Blood Culture (Wb) - Right Forearm Blood Culture - Preliminary No growth in 48 hours. 12/21/19 15:05 Blood Culture (Wb) - Port Blood Culture - Preliminary No growth in 48 hours. Laboratory Results 12/24/19 06:57: Vitamin B12 603 12/25/19 12:21: Hep Bs Antigen Non-Reactive 12/25/19 17:06: POC Glucose 134 H 12/25/19 20:31: POC Glucose 122 H 12/25/19 22:49: POC Glucose 107 12/26/19 05:26: DIONNE Screen Pending, SANDY-1 Antibody Pending, SS-A/Ro IgG Antibody Pending, SS-B/La IgG Antibody Pending, Sm (Desai) Antibody Pending, PAIL BAILER Antibody Pending, Scl-70 Scleroderma Ab Pending, Double Strand DNA Ab Pending, Centromere B Antibody Pending 12/26/19 05:26: PT Ratio Pending, Thrombin Time Pending, Thrombin Time Mix Pending, Lupus Anticoag aPTT Pending 12/26/19 05:26: Sodium 129 L, Potassium 3.9, Chloride 95 L, Carbon Dioxide 25.0, Anion Gap 9, BUN 31 H, Creatinine 4.56 H, Estim Creat Clear Calc 11.75, Est GFR (MDRD) Af Amer 13 L, Est GFR (MDRD) Non-Af 11 L, BUN/Creatinine Ratio 6.8 L, Glucose 91, Calcium 7.5 L 12/26/19 06:35: POC Glucose 86 12/26/19 09:53: POC Glucose 120 H 12/26/19 11:15: COVID-19 (SUELLEN) Pending 12/26/19 11:43: POC Glucose 124 H Current Medications Acetaminophen (Tylenol) 650 mg PO Q6H PRN PRN PRN Reason: Pain Score 1-10/Temp > 100.7 F Last Admin: 12/25/19 10:51 Dose: 650 mg Documented by: Amlodipine Besylate (Norvasc) 10 mg PO DAILY [facility] Last Admin: 12/26/19 09:49 Dose: 10 mg Documented by: [facility] Last Admin: 12/26/19 09:49 Dose: 81 mg Documented by: Bupropion HCl (Wellbutrin Xl) 300 mg PO DAILY [facility] Last Admin: 12/26/19 09:48 Dose: 300 mg Documented by: Calcitriol (Rocaltrol) 0.25 mcg PO DAILY [facility] Last Admin: 12/26/19 09:51 Dose: 0.25 mcg Documented by: Calcium Acetate (Phoslo Gel Cap) 1,334 mg PO TIDCM [facility] Last Admin: 12/26/19 09:50 Dose: 1,334 mg Documented by: Carvedilol (Coreg) 6.25 mg PO BID [facility] Last Admin: 12/26/19 09:49 Dose: 6.25 mg Documented by: Dextrose (D50w Syringe) 0 gm IV X1 PRN; Protocol PRN Reason: Hypoglycemia Duloxetine HCl (Cymbalta) 60 mg PO DAILY [facility] Last Admin: 12/26/19 09:49 Dose: 60 mg Documented by: Enoxaparin Sodium (Lovenox) 30 mg SC DAILY [facility] Last Admin: 12/26/19 09:50 Dose: 30 mg Documented by: Furosemide (Lasix) 80 mg PO DAILY [facility] Last Admin: 12/26/19 09:48 Dose: 80 mg Documented by: Glucagon () 1 mg IM .X1 PRN PRN Reason: Hypoglycemia Guaifenesin (Robitussin Dm) 5 ml PO Q6H PRN PRN PRN Reason: COUGH Piperacillin Sod/Tazobactam (Sod 3.375 gm/ Sodium Chloride) 50 mls @ 12.5 mls/hr IV Q12 [facility] Last Admin: 12/26/19 09:47 Dose: 12.5 mls/hr Documented by: Vancomycin IV Pharmacy to Dose (1 ea/ Sodium Chloride) 500 mls @ 250 mls/hr IV PRN PRN; Protocol PRN Reason: Rx to Dose Sodium Chloride () 250 mls @ 15 mls/hr IV .[id number] PRN PRN Reason: Saline Flush Last Infusion: 12/26/19 09:47 Dose: Infused Documented by: Insulin Glargine (Lantus (Bkc)) 60 units SC QHS [facility] Last Admin: 12/25/19 22:46 Dose: 60 units Documented by: Insulin Human Lispro (Humalog Kwikpen (Bkc)) 28 unit SC TIDAC [facility] Last Admin: 12/26/19 09:56 Dose: Not Given Documented by: Insulin Human Lispro (Humalog Kwikpen (Bkc)) 0 unit SC TIDAC [facility]; Protocol Last Admin: 12/26/19 11:51 Dose: Not Given Documented by: Levothyroxine Sodium (Synthroid) 200 mcg PO DAILY@0600 [facility] Last Admin: 12/26/19 05:24 Dose: 200 mcg Documented by: Losartan Potassium (Cozaar) 50 mg PO DAILY [facility] Last Admin: 12/26/19 09:49 Dose: 50 mg Documented by: Nitroglycerin (Nitrostat) 0.4 mg SUBLINGUAL UD PRN PRN Reason: chest pain Ondansetron HCl (Zofran) 4 mg IV Q8H PRN PRN PRN Reason: NAUSEA/VOMITING Last Admin: 12/21/19 23:38 Dose: 4 mg Documented by: Oxycodone HCl (Oxyir) 5 mg PO Q6H PRN PRN PRN Reason: Pain Score 4-10/10 Sodium Chloride () 10 - 40 ml IV UD PRN PRN Reason: SALINE FLUSH Last Admin: 12/25/19 22:55 Dose: 10 ml Documented by: STROKE Vital Signs/Narrative: Vital Signs Temp Pulse Resp BP Pulse Ox 12/26/19 09:39 98.4 F 78 18 110/47 L 96 Medical Necessity - Tobacco Use Smoking Status: Current every day smoker Tobacco Use: Cigarettes Assessment/Plan All Active Problems (Last Updated 12/21/19 @ 19:[address] Homar Vivar, DO) Pressure injury of upper extremity, unstageable (Acute) Cellulitis of left middle finger (Acute) 1. Left 3rd finger cellulitis - Dr. Sloan consulted-plan is to monitor and follow up as outpatient for reassessment, if no improvement or worsening and then may need debridement possible partial ostectomy. Continue PO abx at dc with doxy/augmentin for total 10 days. WBC normal. No fever. MRI does not demonstrate osteomyelitis or abscess. -complicated by esrd, nicotine abuse, and dmt2 -swelling erythema ROM all improved. blister opened now no expressible drainage. 2. ESRD - dialysis today. bmp in AM. sodium down. 3. Hx BrCa-in remission 4. DMt2 with morbid obesity-uncontrolled with hyperglycemia. improved. continue current therapy. 5. 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 6. Hx CAD - aspirin, coreg. plavix held. 7. Normocytic anemia-anemia of chronic disease. Will trend. 8. Debility - pt unable to ambulate or stand on her own. ptot ordered. DVT ppx: lovenox DC planning: Waiting for SNF placement. This patient was seen by Travis Salguero PA-C under the supervision of Doctor Laughlin. <Natalie Laughlin Last Filed: 12/26/19 13:05> Vitals/I&O's: Vital Signs Temp Pulse Resp BP Pulse Ox 98.4 F 78 18 110/47 L 96 12/26/19 09:39 12/26/19 09:39 12/26/19 09:39 12/26/19 09:39 12/26/19 09:39 Oxygen Flow Rate (L/min) 3 Oxygen Delivery Method Room Air Weight: 254 lb 13.67 oz Body Mass Index (BMI) 43.8 Intake and Output for Last 24 Hours 12/24/19 12/25/19 12/26/19 23:59 23:59 23:59 Intake Total 1320.5 / 1820.5 2071.5 / 2311.5 838 / 838 Output Total 0 / 0 1999 0 / 0 Balance 1320.5 / 1820.5 71.5 / 311.5 838 / 838 Microbiology Past 72 Hours 12/21/19 15:05 Blood Culture (Wb) - Right Forearm Blood Culture - Preliminary No growth in 48 hours. 12/21/19 15:05 Blood Culture (Wb) - Port Blood Culture - Preliminary No growth in 48 hours. Laboratory Results 12/24/19 06:57: Vitamin B12 603 12/25/19 12:21: Hep Bs Antigen Non-Reactive 12/25/19 17:06: POC Glucose 134 H 12/25/19 20:31: POC Glucose 122 H 12/25/19 22:49: POC Glucose 107 12/26/19 05:26: DIONNE Screen Pending, SANDY-1 Antibody Pending, SS-A/Ro IgG Antibody Pending, SS-B/La IgG Antibody Pending, Sm (Desai) Antibody Pending, PAIL BAILER Antibody Pending, Scl-70 Scleroderma Ab Pending, Double Strand DNA Ab Pending, Centromere B Antibody Pending 12/26/19 05:26: PT Ratio Pending, Thrombin Time Pending, Thrombin Time Mix Pending, Lupus Anticoag aPTT Pending 12/26/19 05:26: Sodium 129 L, Potassium 3.9, Chloride 95 L, Carbon Dioxide 25.0, Anion Gap 9, BUN 31 H, Creatinine 4.56 H, Estim Creat Clear Calc 11.75, Est GFR (MDRD) Af Amer 13 L, Est GFR (MDRD) Non-Af 11 L, BUN/Creatinine Ratio 6.8 L, Glucose 91, Calcium 7.5 L 12/26/19 06:35: POC Glucose 86 12/26/19 09:53: POC Glucose 120 H 12/26/19 11:15: COVID-19 (SUELLEN) Pending 12/26/19 11:43: POC Glucose 124 H Current Medications Acetaminophen (Tylenol) 650 mg PO Q6H PRN PRN PRN Reason: Pain Score 1-10/Temp > 100.7 F Last Admin: 12/25/19 10:51 Dose: 650 mg Documented by: Amlodipine Besylate (Norvasc) 10 mg PO DAILY [facility] Last Admin: 12/26/19 09:49 Dose: 10 mg Documented by: [facility] Last Admin: 12/26/19 09:49 Dose: 81 mg Documented by: Bupropion HCl (Wellbutrin Xl) 300 mg PO DAILY [facility] Last Admin: 12/26/19 09:48 Dose: 300 mg Documented by: Calcitriol (Rocaltrol) 0.25 mcg PO DAILY [facility] Last Admin: 12/26/19 09:51 Dose: 0.25 mcg Documented by: Calcium Acetate (Phoslo Gel Cap) 1,334 mg PO TIDCM [facility] Last Admin: 12/26/19 09:50 Dose: 1,334 mg Documented by: Carvedilol (Coreg) 6.25 mg PO BID [facility] Last Admin: 12/26/19 09:49 Dose: 6.25 mg Documented by: Dextrose (D50w Syringe) 0 gm IV X1 PRN; Protocol PRN Reason: Hypoglycemia Duloxetine HCl (Cymbalta) 60 mg PO DAILY [facility] Last Admin: 12/26/19 09:49 Dose: 60 mg Documented by: Enoxaparin Sodium (Lovenox) 30 mg SC DAILY [facility] Last Admin: 12/26/19 09:50 Dose: 30 mg Documented by: Furosemide (Lasix) 80 mg PO DAILY [facility] Last Admin: 12/26/19 09:48 Dose: 80 mg Documented by: Glucagon () 1 mg IM .X1 PRN PRN Reason: Hypoglycemia Guaifenesin (Robitussin Dm) 5 ml PO Q6H PRN PRN PRN Reason: COUGH Piperacillin Sod/Tazobactam (Sod 3.375 gm/ Sodium Chloride) 50 mls @ 12.5 mls/hr IV Q12 [facility] Last Admin: 12/26/19 09:47 Dose: 12.5 mls/hr Documented by: Vancomycin IV Pharmacy to Dose (1 ea/ Sodium Chloride) 500 mls @ 250 mls/hr IV PRN PRN; Protocol PRN Reason: Rx to Dose Sodium Chloride () 250 mls @ 15 mls/hr IV .[id number] PRN PRN Reason: Saline Flush Last Infusion: 12/26/19 09:47 Dose: Infused Documented by: Insulin Glargine (Lantus (Bk)) 60 units SC QHS [facility] Last Admin: 12/25/19 22:46 Dose: 60 units Documented by: Insulin Human Lispro (Humalog Kwikpen ([facility])) 28 unit SC TIDAC [facility] Last Admin: 12/26/19 09:56 Dose: Not Given Documented by: Insulin Human Lispro (Humalog Kwikpen ([facility])) 0 unit SC TIDAC [facility]; Protocol Last Admin: 12/26/19 11:51 Dose: Not Given Documented by: Levothyroxine Sodium (Synthroid) 200 mcg PO DAILY@0600 [facility] Last Admin: 12/26/19 05:24 Dose: 200 mcg Documented by: Losartan Potassium (Cozaar) 50 mg PO DAILY [facility] Last Admin: 12/26/19 09:49 Dose: 50 mg Documented by: Nitroglycerin (Nitrostat) 0.4 mg SUBLINGUAL UD PRN PRN Reason: chest pain Ondansetron HCl (Zofran) 4 mg IV Q8H PRN PRN PRN Reason: NAUSEA/VOMITING Last Admin: 12/21/19 23:38 Dose: 4 mg Documented by: Oxycodone HCl (Oxyir) 5 mg PO Q6H PRN PRN PRN Reason: Pain Score 4-10/10 Sodium Chloride () 10 - 40 ml IV UD PRN PRN Reason: SALINE FLUSH Last Admin: 12/25/19 22:55 Dose: 10 ml Documented by: STROKE Vital Signs/Narrative: Vital Signs Temp Pulse Resp BP Pulse Ox 12/26/19 09:39 98.4 F 78 18 110/47 L 96 Assessment/Plan Hospitalist note: I am seeing this patient in conjunction with Travis Salguero. I independently seen and examined the patient. Progress note above and laboratory data reviewed and I concur with above treatment plan. Today, she denied any complaints. Still feeling weak and tired, difficulty and pain. Her vitals are stable. - Physical Exam General: Alert, Oriented x3, Cooperative, No apparent distress. HEENT: Atraumatic, PERRLA, EOMI. Neck: Supple, No JVD, Negative Carotid Bruits, Trachea Midline, Thyroid Normal. Lungs: Diminished breath sounds bilateral, otherwise clear, no rhonchi, No wheeze, No rales. Cardiovascular: Regular rate, Regular Rhythm, Normal S1, Normal S2, PMI Normal. Abdomen: Bowel Sounds Present, Soft, Non Tender, Non-Distended, No Hepato-splenomegaly. Extremities: No clubbing, No cyanosis, No edema. Left hand: Distal middle finger is swollen, red, tender, erythematous, improving. Skin: No rashes, No breakdown Neurological: Cranial nerves are intact, neuro grossly intact Vital Signs are stable. Assessment and plan: #1 acute left middle finger cellulitis: Remained on IV vancomycin and Zosyn. Local erythema and swelling of the left middle finger continue to improve. Patient remained afebrile, other vital signs are stable. Blood cultures showed no growth in 48 hours. MRI reveals no evidence of osteomyelitis or abscess. Dr. Sloan was consulted, plan for medical treatment, no surgical interventions. Plan to switch to p.o. doxycycline and Augmentin, awaiting placement to fdc facility. #2 physical debility: Today, patient is not able to ambulate, very weak and tired. Initially, refused to go to skilled nursing. She was seen by PT OT which needed significant assistance. Patient lives at home with her sister who states that she will not be able to take care of her at home. Awaiting placement to fdc facility. #3 ESRD on hemodialysis: Receiving hemodialysis as per her schedule. Nephrology consulted. #4 hypothyroidism: continue levothyroxine. TSH elevated at 11.5. Recommend to repeat TSH in 2 weeks. #5 other chronic medical problems: Stable, continue current medications as above. This note was generated with [employer] dictation software. It may contain incorrect words, spelling, and punctuation that were not noted in checking the note before signing. Inpatient E&M: 62545 Subs Hosp L2
--- NOTE | 2019-12-26 12:47 | PN.RENAL_ITS ---
Patient Problems: Active and Suspected Problems (Last Updated 12/21/19 @ 19:[address] Homar Vivar, DO) Cellulitis of left middle finger (Acute) Subjective: no new complaints - Physical Exam Vitals/I&O's: Vital Signs Temp Pulse Resp BP Pulse Ox 98.4 F 78 18 110/47 L 96 12/26/19 09:39 12/26/19 09:39 12/26/19 09:39 12/26/19 09:39 12/26/19 09:39 Oxygen Flow Rate (L/min) 3 Oxygen Delivery Method Room Air Weight: 115.6 kg Body Mass Index (BMI) 43.8 Intake and Output for Last 24 Hours 12/24/19 12/25/19 12/26/19 23:59 23:59 23:59 Intake Total 1320.5 / 1820.5 2071.5 / 2311.5 838 / 838 Output Total 0 / 0 1999 / 1999 0 / 0 Balance 1320.5 / 1820.5 71.5 / 311.5 838 / 838 General: Alert, Oriented x3, Cooperative HEENT: Atraumatic, PERRLA, EOMI, Normocephalic Neck: Supple, No JVD, Negative Carotid Bruits Lungs: Clear to auscultation, Normal air movement Cardiovascular: Regular rate, No murmurs Abdomen: Bowel Sounds Present, Soft, Non Tender Extremities: No edema, Capillary Refill Less than 3 Seconds Skin: No rashes, No breakdown Musculoskeletal: No Tenderness to Palpation of Joints or Extremities Neurological: Cranial nerves II-XII grossly intact Psych/Mental Status: Normal Affect, Appropriate Microbiology Past 72 Hours 12/21/19 15:05 Blood Culture (Wb) - Right Forearm Blood Culture - Preliminary No growth in 48 hours. 12/21/19 15:05 Blood Culture (Wb) - Port Blood Culture - Preliminary No growth in 48 hours. Laboratory Results 12/24/19 06:57: Vitamin B12 603 12/25/19 12:21: Hep Bs Antigen Non-Reactive 12/25/19 17:06: POC Glucose 134 H 12/25/19 20:31: POC Glucose 122 H 12/25/19 22:49: POC Glucose 107 12/26/19 05:26: DIONNE Screen Pending, SANDY-1 Antibody Pending, SS-A/Ro IgG Antibody Pending, SS-B/La IgG Antibody Pending, Sm (Desai) Antibody Pending, MANAGER MERCHANDISE Antibody Pending, Scl-70 Scleroderma Ab Pending, Double Strand DNA Ab Pending, Centromere B Antibody Pending 12/26/19 05:26: PT Ratio Pending, Thrombin Time Pending, Thrombin Time Mix Pending, Lupus Anticoag aPTT Pending 12/26/19 05:26: Sodium 129 L, Potassium 3.9, Chloride 95 L, Carbon Dioxide 25.0, Anion Gap 9, BUN 31 H, Creatinine 4.56 H, Estim Creat Clear Calc 11.75, Est GFR (MDRD) Af Amer 13 L, Est GFR (MDRD) Non-Af 11 L, BUN/Creatinine Ratio 6.8 L, Glucose 91, Calcium 7.5 L 12/26/19 06:35: POC Glucose 86 12/26/19 09:53: POC Glucose 120 H 12/26/19 11:15: COVID-19 (SUELLEN) Pending 12/26/19 11:43: POC Glucose 124 H Current Medications Acetaminophen (Tylenol) 650 mg PO Q6H PRN PRN PRN Reason: Pain Score 1-10/Temp > 100.7 F Last Admin: 12/25/19 10:51 Dose: 650 mg Documented by: Amlodipine Besylate (Norvasc) 10 mg PO DAILY [facility] Last Admin: 12/26/19 09:49 Dose: 10 mg Documented by: Aspirin (Ecotrin) 81 mg PO DAILYCM [facility] Last Admin: 12/26/19 09:49 Dose: 81 mg Documented by: Bupropion HCl (Wellbutrin Xl) 300 mg PO DAILY [facility] Last Admin: 12/26/19 09:48 Dose: 300 mg Documented by: Calcitriol (Rocaltrol) 0.25 mcg PO DAILY [facility] Last Admin: 12/26/19 09:51 Dose: 0.25 mcg Documented by: Calcium Acetate (Phoslo Gel Cap) 1,334 mg PO TIDCM [facility] Last Admin: 12/26/19 09:50 Dose: 1,334 mg Documented by: Carvedilol (Coreg) 6.25 mg PO BID [facility] Last Admin: 12/26/19 09:49 Dose: 6.25 mg Documented by: Dextrose (D50w Syringe) 0 gm IV X1 PRN; Protocol PRN Reason: Hypoglycemia Duloxetine HCl (Cymbalta) 60 mg PO DAILY [facility] Last Admin: 12/26/19 09:49 Dose: 60 mg Documented by: Enoxaparin Sodium (Lovenox) 30 mg SC DAILY [facility] Last Admin: 12/26/19 09:50 Dose: 30 mg Documented by: Furosemide (Lasix) 80 mg PO DAILY [facility] Last Admin: 12/26/19 09:48 Dose: 80 mg Documented by: Glucagon () 1 mg IM .X1 PRN PRN Reason: Hypoglycemia Guaifenesin (Robitussin Dm) 5 ml PO Q6H PRN PRN PRN Reason: COUGH Piperacillin Sod/Tazobactam (Sod 3.375 gm/ Sodium Chloride) 50 mls @ 12.5 mls/hr IV Q12 [facility] Last Admin: 12/26/19 09:47 Dose: 12.5 mls/hr Documented by: Vancomycin IV Pharmacy to Dose (1 ea/ Sodium Chloride) 500 mls @ 250 mls/hr IV PRN PRN; Protocol PRN Reason: Rx to Dose Sodium Chloride () 250 mls @ 15 mls/hr IV .[id number] PRN PRN Reason: Saline Flush Last Infusion: 12/26/19 09:47 Dose: Infused Documented by: Insulin Glargine (Lantus (Bkc)) 60 units SC QHS [facility] Last Admin: 12/25/19 22:46 Dose: 60 units Documented by: Insulin Human Lispro (Humalog Kwikpen ([facility])) 28 unit SC TIDAC [facility] Last Admin: 12/26/19 09:56 Dose: Not Given Documented by: Insulin Human Lispro (Humalog Kwikpen (Bkc)) 0 unit SC TIDAC [facility]; Protocol Last Admin: 12/26/19 11:51 Dose: Not Given Documented by: Levothyroxine Sodium (Synthroid) 200 mcg PO DAILY@0600 [facility] Last Admin: 12/26/19 05:24 Dose: 200 mcg Documented by: Losartan Potassium (Cozaar) 50 mg PO DAILY [facility] Last Admin: 12/26/19 09:49 Dose: 50 mg Documented by: Nitroglycerin (Nitrostat) 0.4 mg SUBLINGUAL UD PRN PRN Reason: chest pain Ondansetron HCl (Zofran) 4 mg IV Q8H PRN PRN PRN Reason: NAUSEA/VOMITING Last Admin: 12/21/19 23:38 Dose: 4 mg Documented by: Oxycodone HCl (Oxyir) 5 mg PO Q6H PRN PRN PRN Reason: Pain Score 4-10/10 Sodium Chloride () 10 - 40 ml IV UD PRN PRN Reason: SALINE FLUSH Last Admin: 12/25/19 22:55 Dose: 10 ml Documented by: Medical Necessity - Tobacco Use Smoking Status: Current every day smoker Tobacco Use: Cigarettes Assessment/Plan All Active Problems (Last Updated 12/21/19 @ 19:[address] Homar Vivar, DO) Pressure injury of upper extremity, unstageable (Acute) Cellulitis of left middle finger (Acute) ESRD. HD MWF schedule anemia. gets long acting KANDI with HD Left middle finger cellulitis vs abscess. surgery on consult. looks better since admission. abx as per primary
[2019-12-26 15:57] VITALS: BP 115/57; PULSE 74; RESP 18; TEMP 36.9; O2SAT 94
[2019-12-26] MEDS: Insulin Lispro 100 UNIT/ML INSULN.PEN 28 UNIT SC (16:59)
[2019-12-26 17:06] LABS: Bedside Glucose 143 mg/dL (70-110)
[2019-12-26 20:33] VITALS: BP 108/62; PULSE 77; RESP 18; TEMP 36.7; O2SAT 97
[2019-12-26] MEDS: Doxycycline 100 MG CAPSULE PO (20:56)
[2019-12-26 21:06] LABS: Bedside Glucose 143 mg/dL (70-110)
[2019-12-27] VITALS (7 sets, daily range): BP systolic 108–157; BP diastolic 33–72; PULSE 71–88; RESP 18; TEMP 36.4–36.8; O2SAT 94–97
[2019-12-27] MEDS: Dextrose 50%-Water 25 GM/50 ML DISP.SYRIN IV (06:38)
[2019-12-27] MEDS: 0.9% Saline Lock 10 ML Syringe IV ×3 (06:42→22:01)
[2019-12-27] MEDS: Levothyroxine 100 MCG Tablet 200 MCG PO (06:44)
[2019-12-27 06:45] LABS: Bedside Glucose 51 mg/dL (70-110)
[2019-12-27 07:01] LABS: Bedside Glucose 92 mg/dL (70-110)
[2019-12-27 07:20] LABS: Bedside Glucose 134 mg/dL (70-110)
--- NOTE | 2019-12-27 07:45 | NURSING ---
Upon entering room pt diaphoretic and lethargic, slow to respond. Blood glucose checked at 0632 result 51. Pt received 12.5g of D50w and one cup of orange juice, rechecked 0654 result 92. Pt still lethargic at this time but arousable to name and touch. Given two more cups of orange juice. Pt remains more lethargic than baseline which includes intermittent confusion and weakness, vitals checked and stable, special agent in charge completed neuro assessment. No deviations from baseline besides being lethargic. Text sent to Dr to make aware of pt's condition. Blood glucose rechecked 0720 134 result. Pt remains lethargic until 0730, then is able to stay awake for extended period of time. Dialysis being set up at this time. Breakfast ordered. Pt alert, eating tracey crackers provided.
[2019-12-27 08:05] LABS: Anion Gap 10 (5-15); BUN 43 mg/dL (7-18); BUN/Creat Ratio 7.3 RATIO (10-20); Chloride 95 mmol/L (98-107); Creatinine, Serum 5.89 mg/dL (0.55-1.02); EST Glomerular Filtration Rate 8 mL/min (>60); Est Glom Filt Rate - Afr Amer 10 mL/min (>60); Glucose 147 mg/dL (74-106); Potassium 4.6 mmol/L (3.5-5.1); Sodium Level 128 mmol/L (136-145)
[2019-12-27 08:53] LABS: Vancomycin, Random Level 16.4 ug/mL (0.0-15.0)
--- NOTE | 2019-12-27 11:47 | PCM.PN.REN ---
Patient Problems: Active and Suspected Problems (Last Updated 12/21/19 @ 19:[address] Homar Vivar, DO) Cellulitis of left middle finger (Acute) Subjective: no new events - Physical Exam Vitals/I&O's: Vital Signs Temp Pulse Resp BP Pulse Ox 97.7 F L 71 18 123/58 H 97 12/27/19 08:30 12/27/19 08:30 12/27/19 08:30 12/27/19 08:30 12/27/19 06:56 Oxygen Flow Rate (L/min) 3 Oxygen Delivery Method Room Air Weight: 115.6 kg Body Mass Index (BMI) 43.8 Intake and Output for Last 24 Hours 12/25/19 12/26/19 12/27/19 23:59 23:59 23:59 Intake Total 2071.5 / 2311.5 1138 / 1138 460 / 460 Output Total 1999 0 / 0 200 / 200 Balance 71.5 / 311.5 1138 / 1138 260 / 260 General: Alert, Oriented x3, Cooperative HEENT: Atraumatic, PERRLA, EOMI, Normocephalic Neck: Supple, No JVD, Negative Carotid Bruits Lungs: Clear to auscultation, Normal air movement Cardiovascular: Regular rate, No murmurs Abdomen: Bowel Sounds Present, Soft, Non Tender Extremities: No edema, Capillary Refill Less than 3 Seconds Skin: No rashes, No breakdown Musculoskeletal: No Tenderness to Palpation of Joints or Extremities Neurological: Cranial nerves II-XII grossly intact Psych/Mental Status: Normal Affect, Appropriate Microbiology Past 72 Hours 12/21/19 15:05 Blood Culture (Wb) - Right Forearm Blood Culture - Final No growth in 5 days. 12/21/19 15:05 Blood Culture (Wb) - Port Blood Culture - Final No growth in 5 days. Laboratory Results 12/22/19 02:25: COVID-19 (SUELLEN) Not Detected 12/26/19 11:15: COVID-19 (SUELLEN) Not Detected 12/26/19 11:43: POC Glucose 124 H 12/26/19 16:57: POC Glucose 143 H 12/26/19 20:52: POC Glucose 143 H 12/27/19 06:32: POC Glucose 51 L 12/27/19 06:54: POC Glucose 92 12/27/19 07:18: POC Glucose 134 H 12/27/19 07:25: Random Vancomycin 16.4 H 12/27/19 07:25: Sodium 128 L, Potassium 4.6, Chloride 95 L, Carbon Dioxide 23.0, Anion Gap 10, BUN 43 H, Creatinine 5.89 H, Estim Creat Clear Calc 9.10, Est GFR (MDRD) Af Amer 10 L, Est GFR (MDRD) Non-Af 8 L, BUN/Creatinine Ratio 7.3 L, Glucose 147 H, Calcium 8.0 L Current Medications Acetaminophen (Tylenol) 650 mg PO Q6H PRN PRN PRN Reason: Pain Score 1-10/Temp > 100.7 F Last Admin: 12/25/19 10:51 Dose: 650 mg Documented by: Amlodipine Besylate (Norvasc) 10 mg PO DAILY [facility] Last Admin: 12/26/19 09:49 Dose: 10 mg Documented by: Amoxicillin/Clavulanate Potassium (Augmentin Tablet) 500 mg PO DAILY@1700 [facility] ([facility]) [facility] Last Admin: 12/26/19 09:49 Dose: 81 mg Documented by: Bupropion HCl (Wellbutrin Xl) 300 mg PO DAILY [facility] Last Admin: 12/26/19 09:48 Dose: 300 mg Documented by: Calcitriol (Rocaltrol) 0.25 mcg PO DAILY [facility] Last Admin: 12/26/19 09:51 Dose: 0.25 mcg Documented by: Calcium Acetate (Phoslo Gel Cap) 1,334 mg PO TIDCM [facility] Last Admin: 12/27/19 09:36 Dose: Not Given Documented by: Carvedilol (Coreg) 6.25 mg PO BID [facility] Last Admin: 12/26/19 20:56 Dose: 6.25 mg Documented by: Dextrose (D50w Syringe) 0 gm IV X1 PRN; Protocol PRN Reason: Hypoglycemia Last Admin: 12/27/19 06:38 Dose: 12.5 gm Documented by: Doxycycline Monohydrate (Doxycycline) 100 mg PO BID [facility] Last Admin: 12/26/19 20:56 Dose: 100 mg Documented by: Duloxetine HCl (Cymbalta) 60 mg PO DAILY [facility] Last Admin: 12/26/19 09:49 Dose: 60 mg Documented by: Furosemide (Lasix) 80 mg PO DAILY [facility] Last Admin: 12/26/19 09:48 Dose: 80 mg Documented by: Glucagon () 1 mg IM .X1 PRN PRN Reason: Hypoglycemia Guaifenesin (Robitussin Dm) 5 ml PO Q6H PRN PRN PRN Reason: COUGH Heparin Sodium (Porcine) () 2,500 units IV UD PRN PRN Reason: Dialysis Cath Heparin Flush Heparin Sodium (Porcine) (Heparin Na) 5,000 unit SC Q8 [facility] Sodium Chloride () 250 mls @ 15 mls/hr IV .[id number] PRN PRN Reason: Saline Flush Last Admin: 12/26/19 20:56 Dose: 15 mls/hr Documented by: Insulin Glargine (Lantus (Bkc)) 60 units SC QHS [facility] Last Admin: 12/26/19 20:55 Dose: 60 units Documented by: Insulin Human Lispro (Humalog Kwikpen (Bk)) 28 unit SC TIDAC [facility] Last Admin: 12/27/19 09:36 Dose: Not Given Documented by: Insulin Human Lispro (Humalog Kwikpen (Bkc)) 0 unit SC TIDAC [facility]; Protocol Last Admin: 12/27/19 09:36 Dose: Not Given Documented by: Levothyroxine Sodium (Synthroid) 200 mcg PO DAILY@0600 [facility] Last Admin: 12/27/19 06:44 Dose: 200 mcg Documented by: Losartan Potassium (Cozaar) 50 mg PO DAILY [facility] Last Admin: 12/26/19 09:49 Dose: 50 mg Documented by: Nitroglycerin (Nitrostat) 0.4 mg SUBLINGUAL UD PRN PRN Reason: chest pain Ondansetron HCl (Zofran) 4 mg IV Q8H PRN PRN PRN Reason: NAUSEA/VOMITING Last Admin: 12/21/19 23:38 Dose: 4 mg Documented by: Oxycodone HCl (Oxyir) 5 mg PO Q6H PRN PRN PRN Reason: Pain Score 4-10/10 Sodium Chloride () 10 - 40 ml IV UD PRN PRN Reason: SALINE FLUSH Last Admin: 12/27/19 06:42 Dose: 10 ml Documented by: Medical Necessity - Tobacco Use Smoking Status: Current every day smoker Tobacco Use: Cigarettes Assessment/Plan All Active Problems (Last Updated 12/21/19 @ 19:[address] Homar Vivar, DO) Pressure injury of upper extremity, unstageable (Acute) Cellulitis of left middle finger (Acute) ESRD. HD MWF schedule. seen on HD today anemia. gets long acting KANDI with HD Left middle finger cellulitis vs abscess. surgery on consult. looks better since admission. abx as per primary
[2019-12-27 11:55] LABS: Bedside Glucose 107 mg/dL (70-110)
--- NOTE | 2019-12-27 11:57 | PN_ITS ---
Patient Problems: Active and Suspected Problems (Last Updated 12/21/19 @ 19:[address] Homar Vivar, DO) Cellulitis of left middle finger (Acute) Reason for Visit: Left middle finger cellulitis Hypoglycemia Subjective: Patient is a 59-year-old lady with multiple comorbidities including end-stage renal disease on hemodialysis admitted with left middle finger cellulitis Patient currently on broad-spectrum antibiotic therapy, did develop significant hypoglycemia episode this a.m. And insulin. Objective: GENERAL: Lethargic but arousable HEENT: Atraumatic; EYES; Anicteric, Normal Conjunctiva NECK; supple, normal thyroid, RESPIRATORY: Diminished to auscultation CARDIOVASCULAR: Regular S1 S2, GI: soft, normoactive bowel sounds, : No Renal angle tenderness; EXTREMITIES: Left middle finger in surgical dressing, MUSCULOSKELETAL: no muscle waisting NEURO: no lateralizing signs. SKIN: No Rash PSYCH; Flat affect Vitals/I&O's: Vital Signs Temp Pulse Resp BP Pulse Ox 97.7 F L 71 18 123/58 H 97 12/27/19 08:30 12/27/19 08:30 12/27/19 08:30 12/27/19 08:30 12/27/19 06:56 Oxygen Flow Rate (L/min) 3 Oxygen Delivery Method Room Air Weight: 115.6 kg Body Mass Index (BMI) 43.8 Intake and Output for Last 24 Hours 12/25/19 12/26/19 12/27/19 23:59 23:59 23:59 Intake Total 2071.5 / 2311.5 1138 / 1138 460 / 460 Output Total 1999 / 1999 0 / 0 200 / 200 Balance 71.5 / 311.5 1138 / 1138 260 / 260 Microbiology Past 72 Hours 12/21/19 15:05 Blood Culture (Wb) - Right Forearm Blood Culture - Final No growth in 5 days. 12/21/19 15:05 Blood Culture (Wb) - Port Blood Culture - Final No growth in 5 days. Laboratory Results 12/22/19 02:25: COVID-19 (SUELLEN) Not Detected 12/26/19 11:15: COVID-19 (SUELLEN) Not Detected 12/26/19 16:57: POC Glucose 143 H 12/26/19 20:52: POC Glucose 143 H 12/27/19 06:32: POC Glucose 51 L 12/27/19 06:54: POC Glucose 92 12/27/19 07:18: POC Glucose 134 H 12/27/19 07:25: Random Vancomycin 16.4 H 12/27/19 07:25: Sodium 128 L, Potassium 4.6, Chloride 95 L, Carbon Dioxide 23.0, Anion Gap 10, BUN 43 H, Creatinine 5.89 H, Estim Creat Clear Calc 9.10, Est GFR (MDRD) Af Amer 10 L, Est GFR (MDRD) Non-Af 8 L, BUN/Creatinine Ratio 7.3 L, Glucose 147 H, Calcium 8.0 L 12/27/19 11:34: POC Glucose 107 Current Medications Acetaminophen (Tylenol) 650 mg PO Q6H PRN PRN PRN Reason: Pain Score 1-10/Temp > 100.7 F Last Admin: 12/25/19 10:51 Dose: 650 mg Documented by: Amlodipine Besylate (Norvasc) 10 mg PO DAILY [facility] Last Admin: 12/26/19 09:49 Dose: 10 mg Documented by: Amoxicillin/Clavulanate Potassium (Augmentin Tablet) 500 mg PO DAILY@1700 [facility] Aspirin (Ecotrin) 81 mg PO DAILYCM [facility] Last Admin: 12/26/19 09:49 Dose: 81 mg Documented by: Bupropion HCl (Wellbutrin Xl) 300 mg PO DAILY [facility] Last Admin: 12/26/19 09:48 Dose: 300 mg Documented by: Calcitriol (Rocaltrol) 0.25 mcg PO DAILY [facility] Last Admin: 12/26/19 09:51 Dose: 0.25 mcg Documented by: Calcium Acetate (Phoslo Gel Cap) 1,334 mg PO TIDCM [facility] Last Admin: 12/27/19 09:36 Dose: Not Given Documented by: Carvedilol (Coreg) 6.25 mg PO BID [facility] Last Admin: 12/26/19 20:56 Dose: 6.25 mg Documented by: Dextrose (D50w Syringe) 0 gm IV X1 PRN; Protocol PRN Reason: Hypoglycemia Last Admin: 12/27/19 06:38 Dose: 12.5 gm Documented by: Doxycycline Monohydrate (Doxycycline) 100 mg PO BID [facility] Last Admin: 12/26/19 20:56 Dose: 100 mg Documented by: Duloxetine HCl (Cymbalta) 60 mg PO DAILY [facility] Last Admin: 12/26/19 09:49 Dose: 60 mg Documented by: Furosemide (Lasix) 80 mg PO DAILY [facility] Last Admin: 12/26/19 09:48 Dose: 80 mg Documented by: Glucagon () 1 mg IM .X1 PRN PRN Reason: Hypoglycemia Guaifenesin (Robitussin Dm) 5 ml PO Q6H PRN PRN PRN Reason: COUGH Heparin Sodium (Porcine) () 2,500 units IV UD PRN PRN Reason: Dialysis Cath Heparin Flush Heparin Sodium (Porcine) (Heparin Na) 5,000 unit SC Q8 [facility] Sodium Chloride () 250 mls @ 15 mls/hr IV .[id number] PRN PRN Reason: Saline Flush Last Admin: 12/26/19 20:56 Dose: 15 mls/hr Documented by: Insulin Glargine (Lantus (Bkc)) 60 units SC QHS [facility] Last Admin: 12/26/19 20:55 Dose: 60 units Documented by: Insulin Human Lispro (Humalog Kwikpen (Bkc)) 28 unit SC TIDAC [facility] Last Admin: 12/27/19 09:36 Dose: Not Given Documented by: Insulin Human Lispro (Humalog Kwikpen (Bkc)) 0 unit SC TIDAC [facility]; Protocol Last Admin: 12/27/19 09:36 Dose: Not Given Documented by: Levothyroxine Sodium (Synthroid) 200 mcg PO DAILY@0600 [facility] Last Admin: 12/27/19 06:44 Dose: 200 mcg Documented by: Losartan Potassium (Cozaar) 50 mg PO DAILY [facility] Last Admin: 12/26/19 09:49 Dose: 50 mg Documented by: Nitroglycerin (Nitrostat) 0.4 mg SUBLINGUAL UD PRN PRN Reason: chest pain Ondansetron HCl (Zofran) 4 mg IV Q8H PRN PRN PRN Reason: NAUSEA/VOMITING Last Admin: 12/21/19 23:38 Dose: 4 mg Documented by: Oxycodone HCl (Oxyir) 5 mg PO Q6H PRN PRN PRN Reason: Pain Score 4-10/10 Sodium Chloride () 10 - 40 ml IV UD PRN PRN Reason: SALINE FLUSH Last Admin: 12/27/19 06:42 Dose: 10 ml Documented by: STROKE Vital Signs/Narrative: Vital Signs Temp Pulse Resp BP 12/27/19 08:30 97.7 F L 71 18 123/58 H Medical Necessity - Tobacco Use Smoking Status: Current every day smoker Tobacco Use: Cigarettes Assessment/Plan All Active Problems (Last Updated 12/21/19 @ 19:[address] Homar Vivar, DO) Pressure injury of upper extremity, unstageable (Acute) Cellulitis of left middle finger (Acute) Patient is a 59-year-old lady with multiple comorbidities including end-stage renal disease on hemodialysis admitted with left middle finger cellulitis 1. Cellulitis involving the left middle finger ?Patient managed with broad-spectrum antibiotic therapy with plans to discharge patient on Doxy and Augmentin 2. End-stage renal disease ?On hemodialysis on Wednesdays and Fridays consultation placed to nephrology for dialysis orders 3. Acute encephalopathy ?Multifactorial including her underlying end-stage renal disease and patient left middle finger infection complicated by hypoglycemia -Plan is to rule out other etiology including liver disease (nonalcoholic fatty liver disease) in view of patient's persistent encephalopathy 4. 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 Hypothyroidism - Patient is on levothyroxine home dose continued 6. Physical deconditioning - Requested for PT OT eval and manager social work to assist with discharge planning 7. Obesity with BMI of 43.7 ?Plan is to sexual assault counselor patient when much more awake 8. Anemia - Secondary to chronic disorder monitoring H&H and transfuse if patient becomes symptomatic or hemoglobin falls below 7 9. Hypertension - Blood pressure controlled, home medications continued with dose adjustment as needed 10. History of breast cancer ?Currently remission 11. DVT prophylaxis ?SC heparin Inpatient E&M: 31075 [facility] Hosp L3
[2019-12-27] MEDS: Acetaminophen 325 MG Tablet 650 MG PO ×2 (12:04→21:55)
--- NOTE | 2019-12-27 12:32 | DIALYSIS ---
Hd dialysis completed 3.5 hours. Access via chest HD cap. net UF 3000ML. PT tolerated well.See HD flow sheet on chart.
[2019-12-27] MEDS: DULoxetine Hcl 60 MG Capsule PO (13:04)
[2019-12-27] MEDS: buPROPion (XL) 150 MG TABLET.XL 300 MG PO (13:04)
[2019-12-27] MEDS: Furosemide 80 MG Tablet PO (13:05)
[2019-12-27] MEDS: Losartan Potassium 50 MG Tablet PO (13:05)
[2019-12-27] MEDS: Calcium Acetate 667 MG Capsule 1334 MG PO ×2 (13:05→17:02)
[2019-12-27] MEDS: Carvedilol 6.25 MG Tablet PO ×2 (13:05→21:54)
[2019-12-27] MEDS: amLODIPine 10 MG Tablet PO (13:06)
[2019-12-27] MEDS: Doxycycline 100 MG CAPSULE PO ×2 (13:06→21:55)
[2019-12-27] MEDS: Aspirin E.C. 81 MG Tablet PO (13:06)
[2019-12-27] MEDS: Calcitriol 0.25 MCG Capsule PO (13:06)
[2019-12-27 13:11] LABS: AST(SGOT) 30 U/L (15-37); Alanine Aminotransfer ALT/SGPT 32 U/L (13-56); Albumin, Serum 2.3 g/dL (3.2-5.0); Alkaline Phosphatase 375 U/L (45-117); Bilirubin, Direct 0.25 mg/dL (0.00-0.30); Globulin 4.7 g/dL (2.2-4.2)
[2019-12-27 13:27] LABS: Ammonia < 10.0 umol/L (11-32)
[2019-12-27] MEDS: Heparin Injection (Vial) 5,000 UNIT/ML VIAL 5000 UNIT SC ×2 (14:59→21:55)
[2019-12-27 15:58] LABS: ANTINUCLEAR ANTIBODIES DIRECT Negative (Negative)
--- NOTE | 2019-12-27 16:42 | CASEMGMT ---
Social Work Note SW received call from Sheila at [facility] stating pre-cert has been obtained and pt can discharge today. ANAHY updated physician, pt is not medically ready for discharge today. ANAHY placed a call to Sheila at [facility] and updated her that pt is not medically cleared for discharge today. Sheila states understanding. ANAHY faxed updated clinicals to [facility]. ANAHY updated pt on approval to [facility]. Pt states understanding. Plan: [facility] Genna Ellington INFORMATION ASSURANCE MANAGER, FIELD HOCKEY COACH
[2019-12-27] MEDS: Insulin Lispro 100 UNIT/ML INSULN.PEN SC (17:01)
[2019-12-27] MEDS: Amox/Clavulanate 500 MG Tablet PO (17:02)
[2019-12-27 17:15] LABS: Bedside Glucose 165 mg/dL (70-110)
[2019-12-28 02:26] LABS: Bedside Glucose 192 mg/dL (70-110)
[2019-12-28 03:07] VITALS: BP 125/60; PULSE 74; RESP 18; TEMP 36.6; O2SAT 95
[2019-12-28 03:46] LABS: Bedside Glucose 107 mg/dL (70-110)
[2019-12-28] MEDS: Ondansetron 4 MG/2 ML Vial IV (04:59)
[2019-12-28] MEDS: Levothyroxine 100 MCG Tablet 200 MCG PO (05:02)
[2019-12-28] MEDS: Heparin Injection (Vial) 5,000 UNIT/ML VIAL 5000 UNIT SC ×2 (05:02→14:26)
[2019-12-28 06:12] LABS: Hematocrit 25.8 % (37-47); Hemoglobin 8.4 g/dL (12.0-15.0); Mean Corp Hgb Conc 32.6 g/dL (32-36); Mean Corpuscular Hgb 30.9 pg (27.0-32.0); Mean Corpuscular Volume 94.9 fL (81-99); Mean Platelet Vol. 10.9 fl (6.2-12.0); Platelet Count 183 K/mm3 (150-450); RBC Distribution Width CV 13.9 % (11.6-14.6); RBC Distribution Width SD 47.8 fl (35.1-43.9); Red Blood Count 2.72 M/mm3 (4.2-5.4); White Blood Count 9.7 K/mm3 (4.4-11.0)
[2019-12-28 06:41] LABS: Anion Gap 8 (5-15); BUN 31 mg/dL (7-18); BUN/Creat Ratio 6.7 RATIO (10-20); Calcium,Total 8.5 mg/dL (8.5-10.1); Chloride 93 mmol/L (98-107); Creatinine, Serum 4.62 mg/dL (0.55-1.02); EST Glomerular Filtration Rate 10 mL/min (>60); Est Glom Filt Rate - Afr Amer 13 mL/min (>60); Glucose 64 mg/dL (74-106); Potassium 3.9 mmol/L (3.5-5.1); Sodium Level 128 mmol/L (136-145)
--- NOTE | 2019-12-28 07:23 | PCM.PN.HOSP ---
Patient Problems: Active and Suspected Problems (Last Updated 12/21/19 @ 19:[address] Homar Vivar, DO) Cellulitis of left middle finger (Acute) Reason for Visit: Cellulitis involving the left middle finger Encephalopathy Subjective: Patient's level of sensorium markedly improved. Plan is for patient to be discharged to [facility] facility to continue with therapy Objective: GENERAL: Awake in no apparent distress HEENT: Atraumatic; EYES; Anicteric, Normal Conjunctiva NECK; supple, normal thyroid, RESPIRATORY: Diminished to auscultation CARDIOVASCULAR: Regular S1 S2, GI: soft, normoactive bowel sounds, : No Renal angle tenderness; EXTREMITIES: Left middle finger in surgical dressing, MUSCULOSKELETAL: no muscle waisting NEURO: no lateralizing signs. SKIN: No Rash PSYCH; Flat affect Vitals/I&O's: Vital Signs Temp Pulse Resp BP Pulse Ox 97.9 F 74 18 125/60 H 95 12/28/19 03:07 12/28/19 03:07 12/28/19 03:07 12/28/19 03:07 12/28/19 03:07 Oxygen Flow Rate (L/min) 3 Oxygen Delivery Method Room Air Weight: 115.6 kg Body Mass Index (BMI) 43.8 Intake and Output for Last 24 Hours 12/26/19 12/27/19 12/28/19 23:59 23:59 23:59 Intake Total 1138 / 1138 1555.75 / 1555.75 200 / 200 Output Total 0 / 0 3200 / 3200 Balance 1138 / 1138 -1644.25 / -1644.25 200 / 200 Microbiology Past 72 Hours 12/21/19 15:05 Blood Culture (Wb) - Right Forearm Blood Culture - Final No growth in 5 days. 12/21/19 15:05 Blood Culture (Wb) - Port Blood Culture - Final No growth in 5 days. Laboratory Results 12/26/19 05:26: DIONNE Screen Negative, SANDY-1 Antibody Not Reportable, SS-A/Ro IgG Antibody Not Reportable, SS-B/La IgG Antibody Not Reportable, Sm (Desai) Antibody Not Reportable, SMUTTER Antibody Not Reportable, Scl-70 Scleroderma Ab Not Reportable, Double Strand DNA Ab Not Reportable, Centromere B Antibody Not Reportable 12/27/19 07:25: Random Vancomycin 16.4 H 12/27/19 07:25: Sodium 128 L, Potassium 4.6, Chloride 95 L, Carbon Dioxide 23.0, Anion Gap 10, BUN 43 H, Creatinine 5.89 H, Estim Creat Clear Calc 9.10, Est GFR (MDRD) Af Amer 10 L, Est GFR (MDRD) Non-Af 8 L, BUN/Creatinine Ratio 7.3 L, Glucose 147 H, Calcium 8.0 L 12/27/19 07:25: Total Bilirubin 0.40, Direct Bilirubin 0.25, AST 30, ALT 32, Alkaline Phosphatase 375 H, Total Protein 7.0, Albumin 2.3 L, Globulin 4.7 H 12/27/19 11:34: POC Glucose 107 12/27/19 12:55: Ammonia < 10.0 L 12/27/19 17:01: POC Glucose 165 H 12/27/19 21:39: POC Glucose 192 H 12/28/19 03:16: POC Glucose 107 12/28/19 05:50: WBC 9.7, RBC 2.72 L, Hgb 8.4 L, Hct 25.8 L, MCV 94.9, MCH 30.9, MCHC 32.6, RDW Std Deviation 47.8 H, RDW Coeff of Angela 13.9, Plt Count 183, MPV 10.9 12/28/19 05:50: Sodium 128 L, Potassium 3.9, Chloride 93 L, Carbon Dioxide 27.0, Anion Gap 8, BUN 31 H, Creatinine 4.62 H, Estim Creat Clear Calc 11.60, Est GFR (MDRD) Af Amer 13 L, Est GFR (MDRD) Non-Af 10 L, BUN/Creatinine Ratio 6.7 L, Glucose 64 L, Calcium 8.5, Magnesium 2.0 Current Medications Acetaminophen (Tylenol) 650 mg PO Q6H PRN PRN PRN Reason: Pain Score 1-10/Temp > 100.7 F Last Admin: 12/27/19 21:55 Dose: 650 mg Documented by: Amlodipine Besylate (Norvasc) 10 mg PO DAILY [facility] Last Admin: 12/27/19 13:06 Dose: 10 mg Documented by: Amoxicillin/Clavulanate Potassium (Augmentin Tablet) 500 mg PO DAILY@1700 [facility] Last Admin: 12/27/19 17:02 Dose: 500 mg Documented by: Aspirin (Ecotrin) 81 mg PO DAILYCM [facility] Last Admin: 12/27/19 13:06 Dose: 81 mg Documented by: Calcitriol (Rocaltrol) 0.25 mcg PO DAILY [facility] Last Admin: 12/27/19 13:06 Dose: 0.25 mcg Documented by: Calcium Acetate (Phoslo Gel Cap) 1,334 mg PO TIDCM [facility] Last Admin: 12/27/19 17:02 Dose: 1,334 mg Documented by: Carvedilol (Coreg) 6.25 mg PO BID [facility] Last Admin: 12/27/19 21:54 Dose: 6.25 mg Documented by: Dextrose (D50w Syringe) 0 gm IV X1 PRN; Protocol PRN Reason: Hypoglycemia Last Admin: 12/27/19 06:38 Dose: 12.5 gm Documented by: Doxycycline Monohydrate (Doxycycline) 100 mg PO BID [facility] Last Admin: 12/27/19 21:55 Dose: 100 mg Documented by: Furosemide (Lasix) 80 mg PO DAILY [facility] Last Admin: 12/27/19 13:05 Dose: 80 mg Documented by: Glucagon () 1 mg IM .X1 PRN PRN Reason: Hypoglycemia Guaifenesin (Robitussin Dm) 5 ml PO Q6H PRN PRN PRN Reason: COUGH Heparin Sodium (Porcine) () 2,500 units IV UD PRN PRN Reason: Dialysis Cath Heparin Flush Heparin Sodium (Porcine) (Heparin Na) 5,000 unit SC Q8 [facility] Last Admin: 12/28/19 05:02 Dose: 5,000 unit Documented by: Sodium Chloride () 250 mls @ 15 mls/hr IV .[id number] PRN PRN Reason: Saline Flush Last Infusion: 12/27/19 13:19 Dose: Infused Documented by: Insulin Glargine (Lantus (Bkc)) 15 units SC QHS [facility] Insulin Human Lispro (Humalog Kwikpen (Bkc)) 0 unit SC TIDAC [facility]; Protocol Last Admin: 12/27/19 17:01 Dose: 1 u Documented by: Levothyroxine Sodium (Synthroid) 200 mcg PO DAILY@0600 [facility] Last Admin: 12/28/19 05:02 Dose: 200 mcg Documented by: Losartan Potassium (Cozaar) 50 mg PO DAILY [facility] Last Admin: 12/27/19 13:05 Dose: 50 mg Documented by: Nitroglycerin (Nitrostat) 0.4 mg SUBLINGUAL UD PRN PRN Reason: chest pain Ondansetron HCl (Zofran) 4 mg IV Q8H PRN PRN PRN Reason: NAUSEA/VOMITING Last Admin: 12/28/19 04:59 Dose: 4 mg Documented by: Sodium Chloride () 10 - 40 ml IV UD PRN PRN Reason: SALINE FLUSH Last Admin: 12/27/19 22:01 Dose: 10 ml Documented by: Medical Necessity - Tobacco Use Smoking Status: Current every day smoker Tobacco Use: Cigarettes Assessment/Plan All Active Problems (Last Updated 12/21/19 @ 19:[address] Homar Vivar, DO) Pressure injury of upper extremity, unstageable (Acute) Cellulitis of left middle finger (Acute) Patient is a 59-year-old lady with multiple comorbidities including end-stage renal disease on hemodialysis admitted with left middle finger cellulitis 1. Cellulitis involving the left middle finger ?Patient managed with broad-spectrum antibiotic therapy with plans to discharge patient on Doxy and Augmentin 2. End-stage renal disease ?On hemodialysis on Wednesdays and Fridays consultation placed to nephrology for dialysis orders 3. Acute encephalopathy ?Multifactorial including her underlying end-stage renal disease and patient left middle finger infection complicated by hypoglycemia -Plan is to rule out other etiology including liver disease (nonalcoholic fatty liver disease) in view of patient's persistent encephalopathy -12/28/2019: Patient seen level of sensorium markedly improved 4. 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 Hypothyroidism - Patient is on levothyroxine home dose continued 6. Physical deconditioning - Requested for PT OT eval and foster care social worker to assist with discharge planning 7. Obesity with BMI of 43.7 ?Plan is to certified rehabilitation counselor patient when much more awake 8. Anemia - Secondary to chronic disorder monitoring H&H and transfuse if patient becomes symptomatic or hemoglobin falls below 7 9. Hypertension - Blood pressure controlled, home medications continued with dose adjustment as needed 10. History of breast cancer ?Currently remission 11. DVT prophylaxis ?SC heparin Inpatient E&M: 48544 Subs Hosp L2
[2019-12-28 07:30] LABS: Bedside Glucose 58 mg/dL (70-110)
[2019-12-28 07:45] VITALS: BP 128/53; PULSE 77; RESP 20; TEMP 36.6; O2SAT 96
[2019-12-28 08:01] LABS: Bedside Glucose 66 mg/dL (70-110)
[2019-12-28 08:01] LABS: Bedside Glucose 83 mg/dL (70-110)
[2019-12-28] MEDS: Doxycycline 100 MG CAPSULE PO (09:28)
[2019-12-28] MEDS: Calcitriol 0.25 MCG Capsule PO (09:28)
[2019-12-28] MEDS: Carvedilol 6.25 MG Tablet PO (09:28)
[2019-12-28] MEDS: amLODIPine 10 MG Tablet PO (09:28)
[2019-12-28] MEDS: Losartan Potassium 50 MG Tablet PO (09:28)
[2019-12-28] MEDS: Aspirin E.C. 81 MG Tablet PO (09:28)
[2019-12-28] MEDS: Furosemide 80 MG Tablet PO (09:28)
[2019-12-28] MEDS: Calcium Acetate 667 MG Capsule 1334 MG PO ×2 (09:28→11:56)
--- NOTE | 2019-12-28 10:50 | PCM.TXEXTCAR ---
- Diet 12/25/19 13:30 Diet: Cardiac: Calorie-Controlled Food consistency:: Regular Liquid Consistency:: Regular/Thin Dietary Modifications:: Sodium Restricted Consistent Carbohydrate Is pt able to select menu?: Yes How many daily calories?: 1800 calorie - Routine Orders/Code Status Code Status: DNRCC-A - Wound(s) lt middle finger Wound Type: blister Left 2nd/3rd toe Wound Type: Abrasion - Therapies Physical Therapy: Eval and Treat Occupational Therapy: Eval and Treat - Allergies/Procedures Done in Hospital Allergies/Adverse Reactions: Allergies codeine phosphate [From Tylenol-Codeine #3] Allergy (Verified 08/13/19 15:48) Swelling simvastatin [From Zocor] Allergy (Verified 08/13/19 15:48) Other - Type of Care/Length of Stay Estimated LOS: Convalescent Care Less Than 30 days Type of Care Needed: Skilled Rehab Potential: Fair Prognosis: Fair - Additional Orders/Day of Discharge Day of Discharge: 12/28/19 - Dietary and Speech Recommendations Dietitian Recommendations/Changes: Will change diet to 1800 calorie/consistent carb-control; Cardiac/sodium-restricted with fluid restriction as needed. - Follow Up Care Primary Care Physician: Iban Eldridge MD [Primary Care Provider] - Please follow up with your Primary Care Physician in: 1-2 weeks Please Follow Up With: Michael Max MD - Dialysis When: as directed Please Follow Up With: Denis Sloan MD - At wound care center When: 1-2 weeks
--- NOTE | 2019-12-28 10:57 | DS.PCM_ITS ---
Discharge Date and Diagnosis - Problem List Patient Problems: Active and Suspected Problems (Last Updated 12/21/19 @ 19:[address] Homar Vivar DO) Cellulitis of left middle finger (Acute) Date of Admission: 12/21/19 Date of Discharge: 12/28/19 - Primary Discharge Diagnosis Acute Problems: Active Problems (Last Updated 12/21/19 @ 19:[address] Homar Vivar DO) Cellulitis of left middle finger (Acute) - Secondary Discharge Diagnosis Chronic Problems: Chronic Problems (Last Updated 12/21/19 @ 19:[address] Homar Vivar DO) Hypertension (Chronic) Type 2 diabetes mellitus (Chronic) Hypothyroidism (Chronic) ESRD on hemodialysis (Chronic) Tobacco abuse (Chronic) Hospital Course and Treatment Imaging Results: Clinical Impression(s) from Imaging Studies Hand X-Ray 12/21/19 14:20 IMPRESSION: Diffuse soft tissue swelling involving the third digit. Electronically Signed: Georges Lucas, at 14:31 EDT , Service support , Upper Extremity MRI 12/22/19 06:00 IMPRESSION: Edema in the subcutis adipose space of the third finger. No demonstrated osteomyelitis or abscess. Electronically Signed: Kt Dent MD at 9:32 EDT Tel , Service support , Microbiology 12/21/19 15:05 Blood Culture (Wb) - Right Forearm Blood Culture - Final No growth in 5 days. 12/21/19 15:05 Blood Culture (Wb) - Port Blood Culture - Final No growth in 5 days. Operations: None Summary of Care Provided: Patient is a 59-year-old lady with multiple comorbidities including end-stage renal disease on hemodialysis admitted with left middle finger cellulitis 1. Cellulitis involving the left middle finger ?Patient managed with broad-spectrum antibiotic therapy and was discharged on doxycycline and Augmentin for 10 days 2. End-stage renal disease ?On hemodialysis on Wednesdays and Fridays consultation placed to nephrology for dialysis orders 3. Acute encephalopathy ?Multifactorial including her underlying end-stage renal disease and patient left middle finger infection complicated by hypoglycemia -Plan is to rule out other etiology including liver disease (nonalcoholic fatty liver disease) in view of patient's persistent encephalopathy -12/28/2019: Patient seen level of sensorium markedly improved 4. 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 Hypothyroidism - Patient is on levothyroxine home dose continued 6. Physical deconditioning - Requested for PT OT eval and addiction social worker to assist with discharge planning ?[facility] with [facility]hab 7. Obesity with BMI of 43.7 ?Plan is to crisis intervention counselor patient when much more awake 8. Anemia - Secondary to chronic disorder monitoring H&H and transfuse if patient becomes symptomatic or hemoglobin falls below 7 9. Hypertension - Blood pressure controlled, home medications continued with dose adjustment as needed 10. History of breast cancer ?Currently remission 11. DVT prophylaxis ?SC heparin Patient Problems: Active and Suspected Problems (Last Updated 12/21/19 @ 19:[address] Homar Vivar, DO) Cellulitis of left middle finger (Acute) - Physical Exam Vitals/I&O's: Vital Signs Temp Pulse Resp BP Pulse Ox 97.9 F 77 20 H 128/53 H 96 12/28/19 07:45 12/28/19 07:45 12/28/19 07:45 12/28/19 07:45 12/28/19 07:45 Oxygen Flow Rate (L/min) 3 Oxygen Delivery Method Room Air Weight: 115.6 kg Body Mass Index (BMI) 43.8 Intake and Output for Last 24 Hours 12/26/19 12/27/19 12/28/19 23:59 23:59 23:59 Intake Total 1138 / 1138 1555.75 / 1555.75 200 / 200 Output Total 0 / 0 3200 / 3200 Balance 1138 / 1138 -1644.25 / -1644.25 200 / 200 Microbiology Past 72 Hours 12/21/19 15:05 Blood Culture (Wb) - Right Forearm Blood Culture - Final No growth in 5 days. 12/21/19 15:05 Blood Culture (Wb) - Port Blood Culture - Final No growth in 5 days. Laboratory Results 12/26/19 05:26: DIONNE Screen Negative, SANDY-1 Antibody Not Reportable, SS-A/Ro IgG Antibody Not Reportable, SS-B/La IgG Antibody Not Reportable, Sm (Desai) Antibody Not Reportable, LOCAL [place] [employer]IVER Antibody Not Reportable, Scl-70 Scleroderma Ab Not Reportable, Double Strand DNA Ab Not Reportable, Centromere B Antibody Not Reportable 12/27/19 07:25: Total Bilirubin 0.40, Direct Bilirubin 0.25, AST 30, ALT 32, Alkaline Phosphatase 375 H, Total Protein 7.0, Albumin 2.3 L, Globulin 4.7 H 12/27/19 11:34: POC Glucose 107 12/27/19 12:55: Ammonia < 10.0 L 12/27/19 17:01: POC Glucose 165 H 12/27/19 21:39: POC Glucose 192 H 12/28/19 03:16: POC Glucose 107 12/28/19 05:50: WBC 9.7, RBC 2.72 L, Hgb 8.4 L, Hct 25.8 L, MCV 94.9, MCH 30.9, MCHC 32.6, RDW Std Deviation 47.8 H, RDW Coeff of Angela 13.9, Plt Count 183, MPV 10.9 12/28/19 05:50: Sodium 128 L, Potassium 3.9, Chloride 93 L, Carbon Dioxide 27.0, Anion Gap 8, BUN 31 H, Creatinine 4.62 H, Estim Creat Clear Calc 11.60, Est GFR (MDRD) Af Amer 13 L, Est GFR (MDRD) Non-Af 10 L, BUN/Creatinine Ratio 6.7 L, Glucose 64 L, Calcium 8.5, Magnesium 2.0 12/28/19 07:18: POC Glucose 58 L 12/28/19 07:38: POC Glucose 66 L 12/28/19 07:55: POC Glucose 83 Current Medications Acetaminophen (Tylenol) 650 mg PO Q6H PRN PRN PRN Reason: Pain Score 1-10/Temp > 100.7 F Last Admin: 12/27/19 21:55 Dose: 650 mg Documented by: Amlodipine Besylate (Norvasc) 10 mg PO DAILY [facility] Last Admin: 12/28/19 09:28 Dose: 10 mg Documented by: Amoxicillin/Clavulanate Potassium (Augmentin Tablet) 500 mg PO DAILY@1700 [facility] Last Admin: 12/27/19 17:02 Dose: 500 mg Documented by: Aspirin (Ecotrin) 81 mg PO DAILYCM [facility] Last Admin: 12/28/19 09:28 Dose: 81 mg Documented by: Calcitriol (Rocaltrol) 0.25 mcg PO DAILY [facility] Last Admin: 12/28/19 09:28 Dose: 0.25 mcg Documented by: Calcium Acetate (Phoslo Gel Cap) 1,334 mg PO TIDCM [facility] Last Admin: 12/28/19 09:28 Dose: 1,334 mg Documented by: Carvedilol (Coreg) 6.25 mg PO BID [facility] Last Admin: 12/28/19 09:28 Dose: 6.25 mg Documented by: Dextrose (D50w Syringe) 0 gm IV X1 PRN; Protocol PRN Reason: Hypoglycemia Last Admin: 12/27/19 06:38 Dose: 12.5 gm Documented by: Doxycycline Monohydrate (Doxycycline) 100 mg PO BID [facility] Last Admin: 12/28/19 09:28 Dose: 100 mg Documented by: Furosemide (Lasix) 80 mg PO DAILY [facility] Last Admin: 12/28/19 09:28 Dose: 80 mg Documented by: Glucagon () 1 mg IM .X1 PRN PRN Reason: Hypoglycemia Guaifenesin (Robitussin Dm) 5 ml PO Q6H PRN PRN PRN Reason: COUGH Heparin Sodium (Porcine) () 2,500 units IV UD PRN PRN Reason: Dialysis Cath Heparin Flush Heparin Sodium (Porcine) (Heparin Na) 5,000 unit SC Q8 [facility] Last Admin: 12/28/19 05:02 Dose: 5,000 unit Documented by: Sodium Chloride () 250 mls @ 15 mls/hr IV .[id number] PRN PRN Reason: Saline Flush Last Infusion: 12/27/19 13:19 Dose: Infused Documented by: Insulin Glargine (Lantus (Bkc)) 15 units SC QHS [facility] Insulin Human Lispro (Humalog Kwikpen (Bk)) 0 unit SC TIDAC [facility]; Protocol Last Admin: 12/28/19 07:31 Dose: Not Given Documented by: Levothyroxine Sodium (Synthroid) 200 mcg PO DAILY@0600 [facility] Last Admin: 12/28/19 05:02 Dose: 200 mcg Documented by: Losartan Potassium (Cozaar) 50 mg PO DAILY [facility] Last Admin: 12/28/19 09:28 Dose: 50 mg Documented by: Nitroglycerin (Nitrostat) 0.4 mg SUBLINGUAL UD PRN PRN Reason: chest pain Ondansetron HCl (Zofran) 4 mg IV Q8H PRN PRN PRN Reason: NAUSEA/VOMITING Last Admin: 12/28/19 04:59 Dose: 4 mg Documented by: Sodium Chloride () 10 - 40 ml IV UD PRN PRN Reason: SALINE FLUSH Last Admin: 12/27/19 22:01 Dose: 10 ml Documented by: Discharge Diet: 1800 Calorie Control Diet, Renal Diet Discharge Activity: Return to Normal Activity Home Medications: Medications to take at Discharge proMETHazine tablet [Phenergan tablet] 25 mg PO Q8H PRN PRN 05/14/13 Carvedilol 6.25 mg PO BID 08/13/19 Acetaminophen [Tylenol Extra Strength] 1,000 mg PO Q6H PRN PRN 12/21/19 Amlodipine [Norvasc] 10 mg PO DAILY 12/21/19 Aspirin E.C. [Ecotrin] 81 mg PO DAILY@0800 12/21/19 Bupropion HCl [Bupropion Xl] 300 mg PO DAILY 12/21/19 Calcitriol [Rocaltrol] 0.25 mcg PO DAILY 12/21/19 Calcium Acetate [Phoslo Gel Cap] 1,334 mg PO TIDCM 12/21/19 Levothyroxine Sodium [Synthroid] 200 mcg PO DAILY 12/21/19 Nitroglycerin [Nitrostat] 0.4 mg SL Q5M PRN 12/21/19 Amoxicillin/Potassium Clav [Augmentin 500-125 Tablet] 1 ea PO DAILY #7 tab 12/24/19 Doxycycline [Vibramycin] 100 mg PO BID #14 cap 12/24/19 Acetaminophen [Tylenol Tablet] 650 mg PO Q6H PRN PRN tab 12/28/19 Furosemide [Lasix] 80 mg PO DAILY tab 12/28/19 Insulin Glargine [Lantus SoloStar Pen] 10 units SUBCUT QHS pen 12/28/19 Insulin Lispro [Humalog KwikPen] See Protocol SUBCUT TIDAC insuln.pen 12/28/19 Losartan Potassium [Cozaar] 50 mg PO DAILY tab 12/28/19 Following Prescriptions Were Given to Patient: Amoxicillin/Potassium Clav [Augmentin 500-125 Tablet] 1 ea PO DAILY #7 tab [id number] Doxycycline [Vibramycin] 100 mg PO BID #14 cap Transmission [facility]: [id number] Primary Care Physician: Iban Eldridge MD [Primary Care Provider] - Please follow up with your Primary Care Physician in: 1-2 weeks Please Follow Up With: Michael Max MD - Dialysis When: as directed Please Follow Up With: Denis Sloan MD - At wound care center When: 1-2 weeks Disposition: Senior Care facility Minutes spent on discharge:: 45 Patient Condition:: Stable Medical Necessity - Tobacco Use Smoking Status: Current every day smoker Tobacco Use: Cigarettes Meaningful Use Info Meaningful Use Diagnoses (Choose all that apply): None applicable Inpatient E&M: 35877 Disch Hosp
[2019-12-28 12:06] LABS: Bedside Glucose 102 mg/dL (70-110)
--- NOTE | 2019-12-28 12:15 | CASEMGMT ---
Social Work Note Pt is medically ready for discharge today. ANAHY faxed completed discharge to [facility] including transfer to extended care facility, signed medication list, any scripts, negative COVID results, and COVID screening tool. Original in SNF folder and copy on pt's chart. ANAHY completed [facility] in [facility]. Original in SNF folder and copy on pt's chart. ANAHY spoke with RN, pt can transport via cot. ANAHY placed a call to [facility] and arranged transportation via cot for 3:30pm. Transportation form completed and placed on SNF folder and copy on pt's chart. SW in to speak with pt. SW updated pt that transportation is arranged for 3:30pm for [facility] today. Pt states understanding, gave this worker permission to call her niece Urvashi to update. RN updated on transportation time. ANAHY placed a call to pt's niece Urvashi and updated her on discharge to [facility] today and transportation time. Urvashi asked well is that where the pt wanted to go? ANAHY explained that FLORI YU spoke with pt the other day regarding SNF and [facility] is where pt requested to go. Urvashi states ok, I guess that is fine. ANAHY placed a call to [facility] and spoke with Sera as Sheila is out today. ANAHY updated Sera on discharge and transportation time. Sera states understanding. Plan: Ivania Corado skilled today with [facility] transporting pt at 3:30pm via cot Genna Ellington RN ENDOSCOPY, PILER
--- NOTE | 2019-12-28 13:08 | PN.RENAL_ITS ---
Patient Problems: Active and Suspected Problems (Last Updated 12/21/19 @ 19:[address] Homar Vviar, DO) Cellulitis of left middle finger (Acute) Subjective: no new complaints - Physical Exam Vitals/I&O's: Vital Signs Temp Pulse Resp BP Pulse Ox 97.9 F 77 20 H 128/53 H 96 12/28/19 07:45 12/28/19 07:45 12/28/19 07:45 12/28/19 07:45 12/28/19 07:45 Oxygen Flow Rate (L/min) 3 Oxygen Delivery Method Room Air Weight: 115.6 kg Body Mass Index (BMI) 43.8 Intake and Output for Last 24 Hours 12/26/19 12/27/19 12/28/19 23:59 23:59 23:59 Intake Total 1138 / 1138 1555.75 / 1555.75 200 / 200 Output Total 0 / 0 3200 / 3200 Balance 1138 / 1138 -1644.25 / -1644.25 200 / 200 General: Alert, Oriented x3, Cooperative HEENT: Atraumatic, PERRLA, EOMI, Normocephalic Neck: Supple, No JVD, Negative Carotid Bruits Lungs: Clear to auscultation, Normal air movement Cardiovascular: Regular rate, No murmurs Abdomen: Bowel Sounds Present, Soft, Non Tender Extremities: No edema, Capillary Refill Less than 3 Seconds Skin: No rashes, No breakdown Musculoskeletal: No Tenderness to Palpation of Joints or Extremities Neurological: Cranial nerves II-XII grossly intact Psych/Mental Status: Normal Affect, Appropriate Microbiology Past 72 Hours 12/21/19 15:05 Blood Culture (Wb) - Right Forearm Blood Culture - Final No growth in 5 days. 12/21/19 15:05 Blood Culture (Wb) - Port Blood Culture - Final No growth in 5 days. Laboratory Results 12/26/19 05:26: DIONNE Screen Negative, SANDY-1 Antibody Not Reportable, SS-A/Ro IgG Antibody Not Reportable, SS-B/La IgG Antibody Not Reportable, Sm (Desai) Antibody Not Reportable, TYPEWRITER TESTER Antibody Not Reportable, Scl-70 Scleroderma Ab Not Reportable, Double Strand DNA Ab Not Reportable, Centromere B Antibody Not Reportable 12/27/19 07:25: Total Bilirubin 0.40, Direct Bilirubin 0.25, AST 30, ALT 32, Alkaline Phosphatase 375 H, Total Protein 7.0, Albumin 2.3 L, Globulin 4.7 H 12/27/19 12:55: Ammonia < 10.0 L 12/27/19 17:01: POC Glucose 165 H 12/27/19 21:39: POC Glucose 192 H 12/28/19 03:16: POC Glucose 107 12/28/19 05:50: WBC 9.7, RBC 2.72 L, Hgb 8.4 L, Hct 25.8 L, MCV 94.9, MCH 30.9, MCHC 32.6, RDW Std Deviation 47.8 H, RDW Coeff of Angela 13.9, Plt Count 183, MPV 10.9 12/28/19 05:50: Sodium 128 L, Potassium 3.9, Chloride 93 L, Carbon Dioxide 27.0, Anion Gap 8, BUN 31 H, Creatinine 4.62 H, Estim Creat Clear Calc 11.60, Est GFR (MDRD) Af Amer 13 L, Est GFR (MDRD) Non-Af 10 L, BUN/Creatinine Ratio 6.7 L, Glucose 64 L, Calcium 8.5, Magnesium 2.0 12/28/19 07:18: POC Glucose 58 L 12/28/19 07:38: POC Glucose 66 L 12/28/19 07:55: POC Glucose 83 12/28/19 11:55: POC Glucose 102 Current Medications Acetaminophen (Tylenol) 650 mg PO Q6H PRN PRN PRN Reason: Pain Score 1-10/Temp > 100.7 F Last Admin: 12/27/19 21:55 Dose: 650 mg Documented by: Amlodipine Besylate (Norvasc) 10 mg PO DAILY [facility] Last Admin: 12/28/19 09:28 Dose: 10 mg Documented by: Amoxicillin/Clavulanate Potassium (Augmentin Tablet) 500 mg PO DAILY@1700 [facility] Last Admin: 12/27/19 17:02 Dose: 500 mg Documented by: [facility] Last Admin: 12/28/19 09:28 Dose: 81 mg Documented by: Calcitriol (Rocaltrol) 0.25 mcg PO DAILY [facility] Last Admin: 12/28/19 09:28 Dose: 0.25 mcg Documented by: Calcium Acetate (Phoslo Gel Cap) 1,334 mg PO TIDCM [facility] Last Admin: 12/28/19 11:56 Dose: 1,334 mg Documented by: Carvedilol (Coreg) 6.25 mg PO BID [facility] Last Admin: 12/28/19 09:28 Dose: 6.25 mg Documented by: Dextrose (D50w Syringe) 0 gm IV X1 PRN; Protocol PRN Reason: Hypoglycemia Last Admin: 12/27/19 06:38 Dose: 12.5 gm Documented by: Doxycycline Monohydrate (Doxycycline) 100 mg PO BID [facility] Last Admin: 12/28/19 09:28 Dose: 100 mg Documented by: Furosemide (Lasix) 80 mg PO DAILY [facility] Last Admin: 12/28/19 09:28 Dose: 80 mg Documented by: Glucagon () 1 mg IM .X1 PRN PRN Reason: Hypoglycemia Guaifenesin (Robitussin Dm) 5 ml PO Q6H PRN PRN PRN Reason: COUGH Heparin Sodium (Beef Lung) () 50 units IV UD PRN PRN Reason: Port-a-Cath (VAD)Heparin Flush Heparin Sodium (Porcine) () 2,500 units IV UD PRN PRN Reason: Dialysis Cath Heparin Flush Heparin Sodium (Porcine) (Heparin Na) 5,000 unit SC Q8 [facility] Last Admin: 12/28/19 05:02 Dose: 5,000 unit Documented by: Sodium Chloride () 250 mls @ 15 mls/hr IV .[id number] PRN PRN Reason: Saline Flush Last Infusion: 12/27/19 13:19 Dose: Infused Documented by: Insulin Glargine (Lantus (Bkc)) 15 units SC QHS [facility] Insulin Human Lispro (Humalog Kwikpen (Bkc)) 0 unit SC TIDAC [facility]; Protocol Last Admin: 12/28/19 11:56 Dose: Not Given Documented by: Levothyroxine Sodium (Synthroid) 200 mcg PO DAILY@0600 [facility] Last Admin: 12/28/19 05:02 Dose: 200 mcg Documented by: Losartan Potassium (Cozaar) 50 mg PO DAILY [facility] Last Admin: 12/28/19 09:28 Dose: 50 mg Documented by: Nitroglycerin (Nitrostat) 0.4 mg SUBLINGUAL UD PRN PRN Reason: chest pain Ondansetron HCl (Zofran) 4 mg IV Q8H PRN PRN PRN Reason: NAUSEA/VOMITING Last Admin: 12/28/19 04:59 Dose: 4 mg Documented by: Sodium Chloride () 10 - 40 ml IV UD PRN PRN Reason: SALINE FLUSH Last Admin: 12/27/19 22:01 Dose: 10 ml Documented by: Medical Necessity - Tobacco Use Smoking Status: Current every day smoker Tobacco Use: Cigarettes Assessment/Plan All Active Problems (Last Updated 12/21/19 @ 19:[address] Homar Vivar, DO) Pressure injury of upper extremity, unstageable (Acute) Cellulitis of left middle finger (Acute) ESRD. HD MWF schedule. anemia. gets long acting KANDI with HD Left middle finger cellulitis vs abscess. surgery on consult. looks better since admission dc to [facility] today
[2019-12-28 14:08] LABS: Dilute Russell Viper Venom 39.8 sec (0.0-47.0); Thrombin Time 15.1 sec (0.0-23.0); dPT Confirm Ratio 0.98 Ratio (0.00-1.40)
[2019-12-28 14:20] VITALS: BP 121/50; PULSE 74; RESP 20; TEMP 36.8; O2SAT 96
[2019-12-28] MEDS: 0.9% Saline Lock 10 ML Syringe IV (14:26)
--- NOTE | 2019-12-28 17:02 | NURSING ---
at 1520- called report to Merna at [facility].
[2019-12-28 22:01] LABS: Interpretation Comment: (.)
== END 2019-12-28 15:53 | disposition skilled nursing facility (03) | DRG 602 ==
LOC: ED 18:27 → MS3 19:27
PROVIDERS: Anesthesiology; Hospitalist; Internal Medicine Nephrology; Physician Assistant; Surgery; Emergency Provider Emergency Medicine; PCP Family Medicine; Visit Provider Internal Medicine
DX: L03.012 Cellulitis of left finger (principal); N18.6 End stage renal disease; N17.9 Acute kidney failure, unspecified; I12.0 Hypertensive chronic kidney disease with stage 5 chronic kidney disease or end stage renal disease; Z68.41 Body mass index [BMI] 40.0-44.9, adult; G93.40 Encephalopathy, unspecified; L89.890 Pressure ulcer of other site, unstageable; S60.423A Blister (nonthermal) of left middle finger, initial encounter; X58.XXXA Exposure to other specified factors, initial encounter; I25.10 Atherosclerotic heart disease of native coronary artery without angina pectoris; E03.9 Hypothyroidism, unspecified; G89.29 Other chronic pain; F17.210 Nicotine dependence, cigarettes, uncomplicated; E11.22 Type 2 diabetes mellitus with diabetic chronic kidney disease; E11.65 Type 2 diabetes mellitus with hyperglycemia; D63.8 Anemia in other chronic diseases classified elsewhere; Z99.2 Dependence on renal dialysis; Z01.818 Encounter for other preprocedural examination; E66.01 Morbid (severe) obesity due to excess calories; E11.649 Type 2 diabetes mellitus with hypoglycemia without coma
CPT/HCPCS: 36415; 36591; 73130; 73218; 80048; 80053; 80076; 80202; 82140; 82607; 82962; 83036; 83605; 83735; 84439; 84443; 85025; 85027; 85610; 85730; 86038; 86225; 86235; 86431; 87040; 87340; 87635; 90937; 93005; 93923; 93970; 97110; 97116; 97162; 97166; 97530; 97535; 99283; C9803; J7030; J7040; J7050; A4216; G0257; J0295; J2405; U0003

== ENCOUNTER 2020-01-19 17:02 | Observation (INO) | payer MEDICARE, MEDICAID, SELFPAY ==
[2020-01-19 17:03] VITALS: BP 138/61; PULSE 90; RESP 18; TEMP 36.2; O2SAT 93; BMI 44.6
--- NOTE | 2020-01-19 17:28 | EKG12_ITS ---
Test Reason : Blood Pressure : / mmHG Vent. Rate : 089 BPM Atrial Rate : 089 BPM P-R Int : 162 ms QRS Dur : 098 ms QT Int : 348 ms P-R-T Axes : 056 009 164 degrees QTc Int : 423 ms Normal sinus rhythm Nonspecific T wave abnormality Abnormal ECG Confirmed by SHIN SANTOS, JUN ([id number]), pictures editor ALANNA FIELD ([id number]) on 01/24/2020 9:52:57 AM Referred By: ALEXIS Confirmed By:JUN MELISSA MD
--- NOTE | 2020-01-19 17:30 | ED.DCSUM_ITS ---
- ER Visit Summary Date of Service: 01/19/20 Chief Complaint: Generalized weakness with failure to thrive at home History of Present Illness: The patient is a 59 F history of end-stage renal disease normally is dialysis Wednesday did not get dialysis today because she was not feeling well enough to go. Also history of CAD, KS of the cardiac stent. Chronic anemia, insulin-dependent diabetes and COPD. Patient was recently admitted to the hospital for a wound on her left hand long finger t hat developed cellulitis and then went from the hospital to the long term and recently just got home from the long term within the last week. She lives with her niece who is her power of insurance defense attorney and the niece just states that she is unable to take care of her she cannot get around the house and they want her replaced in a long term. Patient denies nausea, vomiting or diarrhea. Physical Examination: Middle-aged female no acute distress vital signs stable afebrile. Pulse ox 93% on room air no signs of hypoxia. Patient does not look septic or toxic. Niece is present in the room. HEENT exam unremarkable. Neck nontender no lymphadenopathy. Lungs clear to auscultation bilaterally. Heart regular rhythm rate about 90 no murmur. Abdomen obese but soft nontender normal bowel sounds no peritoneal signs. Extremities moves all 4. Trace edema both lower extremities. Pitting. Neurologically she is awake and alert with no focal motor deficits. Her right chest wall has a tunneled Vas-Cath. Test Results: EKG shows normal sinus rhythm rate 89 with no acute signs of KS or ischemia. Chest x-ray portable 1 view read by myself shows no acute abnormality. Right-sided Vas-Cath. CBC white count 8. Hemoglobin is 7 previously she was running between 8 and 10. Hematocrit 24. No bands. She is acute on chronic anemia of chronic disease. Electrolytes show sodium 132. Gap of 5. Glucose 315 BUN of 55 creatinine 4.52 consistent with her chronic renal failure. Repeat exam at 1847 no change. Test results discussed with patient and family. Emergency Department Course and Treatment: End-stage renal disease dialysis patient did miss dialysis today that is also diabetic and has known cardiac disease. Basically failure to thrive at home after recent hospitalization and recent discharge from a long term. Screening labs to be obtained. I have administrator social welfare seeing them. My plan is to admit to the hospitalist for failure to thrive and needs long term placement. Treatment Plan: I spoke to the hospitalist patient will be admitted to general medical floor. Disposition: Admission Impression: Failure to thrive End-stage renal disease and dialysis missed dialysis today. History of CAD with cardiac stent prior KS History of insulin-dependent diabetes History of anemia of chronic disease Hyperglycemia This note was generated with Sync[employer] dictation software. It may contain incorrect words, spelling, and punctuation that were not noted in review of the chart prior to signing ED Disposition - Plan for ED Patient: Referrals: Iban Eldridge MD [Primary Care Provider] -
--- NOTE | 2020-01-19 18:00 | RAD_ITS ---
STUDY: X-RAY CHEST REASON FOR EXAM: Female, 59 years old. weakness in legs with swelling TECHNIQUE: AP portable COMPARISON: 08/13/2019 FINDINGS: There is diffuse bilateral perihilar interstitial edema or infiltrate.. There is no demonstrated pleural abnormality. Heart is mildly enlarged.. Normal mediastinum and is[place]. Normal visualized pulmonary arteries. Normal visualized aortic arch and descending thoracic aorta. Central line seen on the right with tip in the right atrium. There is a central line on the left terminating in distal superior vena cava Spine and shoulders demonstrate degenerative changes. Normal visualized ribs, and clavicles.. There are surgical clips seen within the right axilla and supraclavicular soft tissues There is no demonstrated abnormality of the visualized soft tissue structures of the upper abdomen. RAD/Chest 1 View (Portable) IMPRESSION: Probable mild congestive failure. Cannot definitively exclude inflammatory disease. Electronically Signed: Michael Diamond MD at 18:42 EDT , Service support ,
[2020-01-19 18:19] VITALS: BP 115/60; PULSE 115; RESP 32; TEMP 36.7; O2SAT 95
[2020-01-19 18:23] LABS: Absolute Neutrophil Count 5.3 X10^3/uL (2.0-7.7); Basophil# 0.04 X10^3/uL; Basophil% 0.5 % (0-1); Eosinophil# 0.34 X10^3/uL; Eosinophils% 4.2 % (0-5); Hematocrit 24.9 % (37-47); Hemoglobin 7.7 g/dL (12.0-15.0); Lymphocyte % 17.3 % (19-41); Mean Corp Hgb Conc 30.9 g/dL (32-36); Mean Corpuscular Volume 100.4 fL (81-99); Mean Platelet Vol. 10.7 fl (6.2-12.0); Monocyte# 0.97 X10^3/uL; NRBC Flagged by Analyzer 0 % (0-5); Neutrophil # 5.26 X10^3/uL (2.7-7.7); Neutrophil % 65.1 % (47-70); Platelet Count 225 K/mm3 (150-450); RBC Distribution Width CV 13.7 % (11.6-14.6); RBC Distribution Width SD 50.2 fl (35.1-43.9); Red Blood Count 2.48 M/mm3 (4.2-5.4); White Blood Count 8.1 K/mm3 (4.4-11.0)
[2020-01-19 18:32] LABS: Anion Gap 5 (5-15); BUN 55 mg/dL (7-18); BUN/Creat Ratio 12.2 RATIO (10-20); Calcium,Total 8.7 mg/dL (8.5-10.1); Chloride 97 mmol/L (98-107); Creatinine, Serum 4.52 mg/dL (0.55-1.02); EST Glomerular Filtration Rate 11 mL/min (>60); Est Glom Filt Rate - Afr Amer 13 mL/min (>60); Estimated Creatinine Clearance 11.86 ml/min; Glucose 315 mg/dL (74-106); Potassium 4.9 mmol/L (3.5-5.1); Sodium Level 132 mmol/L (136-145)
--- NOTE | 2020-01-19 18:49 | HP.PCM_ITS ---
Problem List (1) Hypertension Status: Chronic Qualifiers: Hypertension type: essential hypertension Qualified Code(s): I10 - Essential (primary) hypertension (2) Type 2 diabetes mellitus Status: Chronic Qualifiers: Diabetes mellitus terminal gauger supervisor insulin use: with usp use Diabetes mellitus complication status: with other specified complication Qualified C ode(s): E11.69 - Type 2 diabetes mellitus with other specified complication; Z79.4 - intermission coordinator (current) use of insulin (3) Hypothyroidism Status: Chronic Qualifiers: Hypothyroidism type: unspecified Qualified Code(s): E03.9 - Hypothyroidism, unspecified (4) ESRD on hemodialysis Status: Chronic (5) Tobacco abuse Status: Chronic (6) Cellulitis of left middle finger Status: Resolved History of Present Illness Date of Admission: 01/19/20 Chief Complaint: Failure to thrive - 2 days The patient is a 59 year old F with past medical history of ESRD on HD, Hypertension, Type DM, hypertension, morbid obesity who comes in with generalized weakness. Patient was recently admitted and discharged on 12/28/19 after being admitted for cellulitis of the left middle finger and acute metabolic encephalopathy. Patient was discharged to [facility] and discharged home 2 days ago to her niece. The niece is however unable to take care of her. Patient complains of feeling short of breath. She is not usually on oxygen. She is on 2 L of oxygen in the ED. Her vital signs show temperature of 97.1F, pulse rate 90, blood pressure 138/61, respiratory 18, SPO2 93% on room air. WBC count is 8.1, hemoglobin 7.7, hematocrit 24.9, platelet 225, sodium 132, potassium 4.9, chloride 97, BUN 55, serum 4.52, glucose 315. Chest x-ray shows vascular congestion. EKG shows some nonspecific T wave inversion in aVL, lead V5 and V6. Past Medical History Past Medical History (Chronic Problems): Chronic Problems (Last Updated 12/21/19 @ 19:[address] Homar Vivar DO) Hypertension (Chronic) Type 2 diabetes mellitus (Chronic) Hypothyroidism (Chronic) ESRD on hemodialysis (Chronic) Tobacco abuse (Chronic) Medical History: Medical History (Last Updated 12/21/19 @ 19:[address] Homar Vivar DO) Breast cancer C50.919 CAD (coronary artery disease) I25.10 DM2 (diabetes mellitus, type 2) E11.9 ESRD (end stage renal disease) N18.6 Hypothyroidism E03.9 VTE (venous thromboembolism) I82.90 Chronic pain G89.29 HTN (hypertension) I10 Allergies codeine phosphate [From Tylenol-Codeine #3] Allergy (Verified 01/19/20 17:03) Swelling simvastatin [From Zocor] Allergy (Verified 01/19/20 17:03) Other Home Medications: Ambulatory Orders Medication Instructions Recorded proMETHazine tablet [Phenergan 25 mg PO Q8H PRN PRN 05/14/13 tablet] Carvedilol 6.25 mg PO BID 08/13/19 Amlodipine [Norvasc] 10 mg PO DAILY 12/21/19 Bupropion HCl [Bupropion Xl] 300 mg PO DAILY 12/21/19 Calcitriol [Rocaltrol] 0.25 mcg PO DAILY 12/21/19 Calcium Acetate [Phoslo Gel Cap] 1,334 mg PO TIDCM 12/21/19 Levothyroxine Sodium [Synthroid] 200 mcg PO DAILY 12/21/19 Nitroglycerin [Nitrostat] 0.4 mg SL Q5M PRN 12/21/19 Furosemide [Lasix] 80 mg PO DAILY 01/19/20 Gabapentin [Neurontin] 300 mg PO TID 01/19/20 Insulin Glargine [Lantus SoloStar 50 units SUBCUT QHS 01/19/20 Pen] Insulin Lispro [Humalog KwikPen] 28 unit SUBCUT TIDAC 01/19/20 Losartan Potassium [Cozaar] 50 mg PO DAILY 01/19/20 Ondansetron HCl [Zofran] 4 mg PO Q8H PRN PRN 01/19/20 Sertraline HCl 100 mg PO DAILY 01/19/20 Tizanidine HCl [Zanaflex] 2 mg PO TID PRN PRN 01/19/20 Surgical History: noncontributory, - - Status post right mastectomy Psychiatric History: No pertinent psych hx Lives: With Family Smoking Status: Current every day smoker Tobacco Use: Cigarettes Alcohol: None Drugs: None - *Family History Maternal History Items: Heart Disease Paternal History Items: Heart Disease Review of Systems Constitutional: Reports: Anorexia, Malaise, Weakness, Fatigue. Denies: Chills, Fever, Night Sweats, Weight Change Eyes: Denies: Blurred vision, Cataracts, Conjunctivae Inflammation, Pain, Redness, Vision Change HEENT: Denies: Difficulty Hearing, Difficulty Swallowing, Head Aches, Hearing Changes, Sinus Congestion, Sinus Drainage Cardiovascular: Denies: Chest Pain, Claudication, Chest Pressure, Chest Tightness, Light Headedness, Orthopnea, Palpitations, Paroxysmal Noc. Dyspnea Respiratory: Denies: Cough, Shortness of breath at rest, Shortness of breath upon exertion, Sputum production Gastrointestinal: Denies: Abdominal Pain, Constipation, Hematemesis, Hematochezia, Nausea, Vomiting Genitourinary: Denies: Dysuria, Frequency Musculoskeletal: Denies: Joint Pain, Joint stiffness, Joint swelling, Joint Tenderness Skin: Denies: Rash, Wounds Neurological: Denies: Difficulty swallowing, Focal weakness, Numbness, Tingling Psychiatric: Denies: Anxiety, Depression, Homicidal Ideations, Suicidal Ideations Hematologic/ Lymphatic: Denies: Easy Bruising, Easy Bleeding VTE Information - Inpt Only VTE Present on Admission: No VTE Pharm Prophylaxis ordered?: Yes - Physical Exam Vitals/I&O's: Vital Signs Temp Pulse Resp BP Pulse Ox 98.0 F 115 H 32 H 115/60 95 01/19/20 18:19 01/19/20 18:19 01/19/20 18:19 01/19/20 18:19 01/19/20 18:19 Oxygen Delivery Method Room Air Weight: 117.934 kg Body Mass Index (BMI) 44.6 General: Alert, Oriented x3, Cooperative, No apparent distress, - - on 3L oxygen HEENT: Atraumatic, PERRLA, EOMI, Normocephalic Oral: Moist Mucosa Neck: Supple Lungs: Diminished, Rales Cardiovascular: Regular rate, Regular Rhythm, Normal S1, Normal S2, No murmurs, - - tunneled Right sided dialysis catheter Abdomen: Bowel Sounds Present, Soft, Non Tender, Non-Distended, No Hepato- splenomegaly Extremities: Edema - bilateral pedal edema +2 Skin: No rashes Musculoskeletal: No Tenderness to Palpation of Joints or Extremities Lymphatic: No Cervical, Supraclavicular, or Inguinal Adenopathy Neurological: Cranial nerves II-XII grossly intact, Neuro grossly intact Psych/Mental Status: Normal Affect, Appropriate Laboratory Results 01/19/20 18:15: WBC 8.1, RBC 2.48 L, Hgb 7.7 L, Hct 24.9 L, MCV 100.4 H, MCH 31.0, MCHC 30.9 L, RDW Std Deviation 50.2 H, RDW Coeff of Angela 13.7, Plt Count 225, MPV 10.7, Immature Gran % (Auto) 0.900, Neut % (Auto) 65.1, Lymph % (Auto) 17.3 L, [place] % (Auto) 12.0 H, Eos % (Auto) 4.2, Baso % (Auto) 0.5, Absolute Neuts (auto) 5.3, Absolute Lymphs (auto) 1.40, Nucleated RBC % 0 01/19/20 18:15: Sodium 132 L, Potassium 4.9, Chloride 97 L, Carbon Dioxide 30.0, Anion Gap 5, BUN 55 H, Creatinine 4.52 H, Estim Creat Clear Calc 11.86, Est GFR (MDRD) Af Amer 13 L, Est GFR (MDRD) Non-Af 11 L, BUN/Creatinine Ratio 12.2, Glucose 315 H, Calcium 8.7 Assessment/Plan All Active Problems (Last Updated 12/21/19 @ 19:[address] Homar Vivar, DO) Pressure injury of upper extremity, unstageable (Acute) Cellulitis of left middle finger (Resolved) 1. Hypoxia secondary to acute fluid overload from missed dialysis Patient is not on oxygen at home. Currently on 2 L of oxygen Continue to wean off f acute fluid overload secondary to missed dialysis or SPO2 more than 94%, encourage use of incentive spirometer 2. Acute fluid overload secondary to missed dialysis Patient still makes urine; will give IV Lasix x1 and continue with oral Lasix Check 2D echo 3. Anemia, Hb 7.7, unclear etiology, no signs of acute GI bleed; likely could be due to anemia of CKD Drop in hemoglobin consistently over the past 1 month from 10.0 on 12/23/19 Will check iron stores, FOBT Would add pantoprazole oral; may be discontinued if FOBT is negative 4. Debility secondary to #1, #2 and #3 Patient is not able to be cared for at home. Family request discharge [facility] 5. Hypertension, controlled, continue on home amlodipine, carvedilol, losartan Continue to monitor vitals closely 6. Type 2 DM, on home insulin, blood glucose is uncontrolled We will continue the same regimen and also blood glucose checks with insulin sliding scale 7. ESRD on hemodialysis, M-W-, missed dialysis today Nephrology consult, possible catch-updialysis in a.m. 8. Hypothyroidism, continue on home levothyroxine regimen 9. Nicotine dependence, advised to quit, will continue on replacement 10. Anxiety and Depression, on Zoloft, bupropion, continue same home regimen. 11. DVT prophylaxis?heparin subcu; encourage early ambulation 12. CODE STATUS?DNR CCA I explained in details the various types of CODE STATUS-full code, DNR CCA, DNR CC with the patient and her niece at the bedside. Patient chose to be a DNR CCA. She does not want to be kept on artificial life support. Time spent discussing CODE STATUS 17minutes Inpatient E&M: 79847 Init Hosp L3 Procedures: 49171 Advncd Care Plan 30 Min
[2020-01-19 18:54] VITALS: BP 129/72; PULSE 89; RESP 20; TEMP 36.2; O2SAT 89
[2020-01-19] MEDS: HYDROcodone Bitartrate/Apap 5/325 Tablet PO (19:15)
[2020-01-19 19:18] VITALS: BMI 44.6
[2020-01-19 19:49] VITALS: BMI 47.5
[2020-01-19 20:23] LABS: Iron 76 ug/dL (50-170); Iron Binding Capacity,Total 235 ug/dL (250-450); PERCENT IRON SATURATION 32.3 % (15.0-55.0)
[2020-01-19 20:30] LABS: AST(SGOT) 27 U/L (15-37); Alanine Aminotransfer ALT/SGPT 37 U/L (13-56); Albumin, Serum 2.7 g/dL (3.2-5.0); Alkaline Phosphatase 349 U/L (45-117); Bilirubin, Direct 0.18 mg/dL (0.00-0.30); Globulin 5.1 g/dL (2.2-4.2); Protein, Total 7.8 g/dL (6.4-8.2)
[2020-01-19 20:50] VITALS: BP 126/59; PULSE 95; RESP 18; TEMP 36.7; O2SAT 95
--- NOTE | 2020-01-19 21:11 | NURSING ---
Spoke to Ely at [facility] regarding the meds that pt would have been on at their facility since pt was just discharged on Wednesday. Ely stated she did not have access to those records and the person that could help us would be in on Wednesday.
--- NOTE | 2020-01-19 21:26 | ECHOCS_ITS ---
Reason For Study: SOB Procedure This was a 2D Doppler, Color Flow transthoracic echocardiogram. The study was technically difficult. Exam performed portable in patient room. Left Ventricle Normal LV size. The estimated ejection fraction is 60 %. Diastolic function is indeterminate. No regional wall motion abnormalities noted. Right Ventricle Normal RV size. Normal systolic function. Atria The left atrium is mildly enlarged. Normal right atrium. Normal atrial septum. Mitral Valve There is no mitral valve stenosis. No mitral valve insufficiency. Tricuspid Valve There is no tricuspid stenosis. Trivial tricuspid valve insufficiency. Unable to estimate RV systolic pressure due to insufficient tricuspid regurgitant envelope. Aortic Valve Mild diffuse aortic valve thickening. Mild aortic stenosis. No aortic valve insufficiency. Pulmonic Valve There is no pulmonic valvular stenosis. No pulmonic valve insufficiency. Great Vessels Normal aortic root. Pericardium/Pleural No pericardial effusion. Medication Diluted definity 2ml given slow IV push to enhance endocardial definition. MMode/2D Measurements & Calculations LVIDd: 4.7 cm IVSd: 1.2 cm LVOT diam: 1.9 cm LVIDs: 2.7 cm LVPWd: 1.2 cm RVDd: 3.2 cm FS: 42.3 % LVOT area: 3.0 cm2 Ao root diam: 2.7 cm LAV(MOD-bp): 55.3 ml LA A4 area: 18.9 cm2 LAV(MOD-bp) Indexed: 24.7 ml/m2 LAV(MOD-sp2): 50.1 ml LAV(MOD-sp4): 57.2 ml LA dimension(2D): 4.5 cm RA A4 area: 9.2 cm2 Doppler Measurements & Calculations MV E max kings: 136.9 cm/sec Lat Peak E' Kings: 8.9 cm/sec Med Peak E' Kings: 6.7 cm/sec MV A max kings: 69.9 cm/sec E/E' lat: 15.5 E/E' med: 20.4 MV E/A: 2.0 Ao V2 max: 193.7 cm/sec LV V1 max: 103.7 cm/sec SV(LVOT): 67.9 ml Ao max P.0 mmHg LV V1 max P.3 mmHg Ao V2 mean: 132.5 cm/sec LV V1 mean P.2 mmHg Ao mean P.8 mmHg LV V1 mean: 69.4 cm/sec Ao V2 VTI: 41.9 cm LV V1 VTI: 22.9 cm JENNIFER(I,D): 1.6 cm2 JENNIFER(V,D): 1.6 cm2 PA V2 max: 114.4 cm/sec TR max knigs: 225.4 cm/sec TR max P.3 mmHg Interpretation Summary The estimated ejection fraction is 60 %. Diastolic function is indeterminate. Mild diffuse aortic valve thickening. Mild aortic stenosis. The study was technically difficult. Contrast injection was performed. Ordering Physician: Rashmi Lerner Referring Physician: MD Chente Iban Performed By: Barbara Lin RDCS
[2020-01-19] MEDS: Furosemide 40 MG/4 ML Vial IV (22:22)
[2020-01-19] MEDS: 0.9% Saline Lock 10 ML Syringe IV (22:23)
[2020-01-19] MEDS: Acetaminophen 325 MG Tablet 650 MG PO (22:23)
[2020-01-19] MEDS: Gabapentin 300 MG Capsule PO (22:24)
[2020-01-19] MEDS: Carvedilol 6.25 MG Tablet PO (22:24)
[2020-01-19] MEDS: Insulin Lispro 100 UNIT/ML INSULN.PEN SC (22:31)
[2020-01-19 22:37] LABS: BNP,B-Type NATRIURETIC PEPTIDE 383.9 pg/mL (0-100)
[2020-01-19 22:51] LABS: Bedside Glucose 287 mg/dL (70-110)
[2020-01-19] MEDS: Heparin Injection (Vial) 5,000 UNIT/ML VIAL 5000 UNIT SC (23:30)
[2020-01-19] MEDS: Pantoprazole Sodium 40 MG Tablet PO (23:30)
[2020-01-20] VITALS (7 sets, daily range): BP systolic 111–131; BP diastolic 57–69; PULSE 82–86; RESP 16–20; TEMP 36.5–37.2; O2SAT 83–98
[2020-01-20] MEDS: Ibuprofen 400 MG Tablet PO (03:51)
[2020-01-20 05:05] LABS: Absolute Lymphocyte Count 1.59 X10^3/uL (0.83-4.51); Absolute Neutrophil Count 4.7 X10^3/uL (2.0-7.7); Basophil# 0.04 X10^3/uL; Basophil% 0.5 % (0-1); Eosinophil# 0.38 X10^3/uL; Hematocrit 23.6 % (37-47); Hemoglobin 7.3 g/dL (12.0-15.0); Lymphocyte # 1.59 X10^3/ul (4.0); Lymphocyte % 20.8 % (19-41); Mean Corp Hgb Conc 30.9 g/dL (32-36); Mean Corpuscular Hgb 31.5 pg (27.0-32.0); Mean Corpuscular Volume 101.7 fL (81-99); Mean Platelet Vol. 10.6 fl (6.2-12.0); Monocyte% 11.8 % (0-10); NRBC Flagged by Analyzer 0 % (0-5); Neutrophil # 4.68 X10^3/uL (2.7-7.7); Neutrophil % 61.1 % (47-70); Platelet Count 223 K/mm3 (150-450); RBC Distribution Width SD 51.7 fl (35.1-43.9); Red Blood Count 2.32 M/mm3 (4.2-5.4); White Blood Count 7.7 K/mm3 (4.4-11.0)
[2020-01-20 05:36] LABS: ALB/GLOB Ratio 0.5 RATIO (0.9-2.4); AST(SGOT) 23 U/L (15-37); Alanine Aminotransfer ALT/SGPT 35 U/L (13-56); Albumin, Serum 2.7 g/dL (3.2-5.0); Alkaline Phosphatase 330 U/L (45-117); Anion Gap 7 (5-15); BUN 61 mg/dL (7-18); BUN/Creat Ratio 12.7 RATIO (10-20); Calcium,Total 8.5 mg/dL (8.5-10.1); Chloride 94 mmol/L (98-107); Creatinine, Serum 4.79 mg/dL (0.55-1.02); EST Glomerular Filtration Rate 10 mL/min (>60); Est Glom Filt Rate - Afr Amer 12 mL/min (>60); Estimated Creatinine Clearance 11.19 ml/min; Glucose 298 mg/dL (74-106); Potassium 5.3 mmol/L (3.5-5.1); Protein, Total 7.7 g/dL (6.4-8.2); Sodium Level 128 mmol/L (136-145)
[2020-01-20] MEDS: Heparin Injection (Vial) 5,000 UNIT/ML VIAL 5000 UNIT SC ×3 (06:37→23:18)
[2020-01-20] MEDS: Gabapentin 300 MG Capsule PO ×3 (06:37→23:19)
[2020-01-20] MEDS: Levothyroxine 100 MCG Tablet 200 MCG PO (06:37)
[2020-01-20 08:01] LABS: Bedside Glucose 311 mg/dL (70-110)
--- NOTE | 2020-01-20 08:06 | CPS ---
Pt was placed on 3 lpm. Saturation up to 98%. Nurse aware of O2 placement
[2020-01-20] MEDS: Calcitriol 0.25 MCG Capsule PO (08:37)
[2020-01-20] MEDS: Insulin Lispro 100 UNIT/ML INSULN.PEN SC ×3 (08:38→23:26)
[2020-01-20] MEDS: Calcium Acetate 667 MG Capsule 1334 MG PO ×3 (08:38→16:42)
[2020-01-20] MEDS: Insulin Lispro 100 UNIT/ML INSULN.PEN 28 UNIT SC ×2 (08:38→12:11)
[2020-01-20] MEDS: Furosemide 80 MG Tablet PO (08:40)
[2020-01-20] MEDS: amLODIPine 10 MG Tablet PO (08:40)
[2020-01-20] MEDS: Carvedilol 6.25 MG Tablet PO ×2 (08:40→23:18)
[2020-01-20] MEDS: Losartan Potassium 50 MG Tablet PO (08:41)
[2020-01-20] MEDS: Sertraline 100 MG Tablet PO (08:41)
[2020-01-20] MEDS: Pantoprazole Sodium 40 MG Tablet PO (08:43)
[2020-01-20] MEDS: buPROPion (XL) 300 MG TABLET.XL PO (08:43)
[2020-01-20] MEDS: Acetaminophen 325 MG Tablet 650 MG PO ×3 (08:46→21:01)
--- NOTE | 2020-01-20 09:09 | PCM.PN.HOSP ---
Reason for Visit: FTT Subjective: Complains of back pain. Vitals/I&O's: Vital Signs Temp Pulse Resp BP Pulse Ox 37.0 C 84 18 117/69 98 01/20/20 08:35 01/20/20 08:35 01/20/20 08:35 01/20/20 08:35 01/20/20 08:35 Oxygen Flow Rate (L/min) 2 Oxygen Delivery Method Nasal Cannula Weight: 80.422 kg Body Mass Index (BMI) 47.5 Intake and Output for Last 24 Hours 01/18/20 01/19/20 01/20/20 23:59 23:59 23:59 Intake Total 550 / 550 Output Total 1100 / 1100 Balance -550 / -550 General: Alert, No apparent distress HEENT: Atraumatic, Normocephalic Oral: Moist Mucosa, No Gingival or Mucosal Lesions/ Ulcerations Neck: No Nodes, Thyroid Normal Size and Texture Lungs: Clear to auscultation, No rhonchi, No wheeze, No rales, Diminished Cardiovascular: Regular rate, Regular Rhythm, Normal S1, Normal S2, No murmurs Abdomen: Bowel Sounds Present, Soft, Non Tender, Non-Distended, No Hepato-splenomegaly, Obese Extremities: No Calf Tenderness Psych/Mental Status: Normal Affect, Appropriate Laboratory Results 01/19/20 18:15: WBC 8.1, RBC 2.48 L, Hgb 7.7 L, Hct 24.9 L, MCV 100.4 H, MCH 31.0, MCHC 30.9 L, RDW Std Deviation 50.2 H, RDW Coeff of Angela 13.7, Plt Count 225, MPV 10.7, Immature Gran % (Auto) 0.900, Neut % (Auto) 65.1, Lymph % (Auto) 17.3 L, [place] % (Auto) 12.0 H, Eos % (Auto) 4.2, Baso % (Auto) 0.5, Absolute Neuts (auto) 5.3, Absolute Lymphs (auto) 1.40, Nucleated RBC % 0 01/19/20 18:15: Sodium 132 L, Potassium 4.9, Chloride 97 L, Carbon Dioxide 30.0, Anion Gap 5, BUN 55 H, Creatinine 4.52 H, Estim Creat Clear Calc 11.86, Est GFR (MDRD) Af Amer 13 L, Est GFR (MDRD) Non-Af 11 L, BUN/Creatinine Ratio 12.2, Glucose 315 H, Calcium 8.7 01/19/20 18:15: Total Bilirubin 0.40, Direct Bilirubin 0.18, AST 27, ALT 37, Alkaline Phosphatase 349 H, Total Protein 7.8, Albumin 2.7 L, Globulin 5.1 H 01/19/20 18:15: Iron 76, TIBC 235 L, Iron Saturation 32.3 01/19/20 18:15: B-Natriuretic Peptide 383.9 H 01/19/20 22:21: POC Glucose 287 H 01/20/20 04:50: WBC 7.7, RBC 2.32 L, Hgb 7.3 L, Hct 23.6 L, MCV 101.7 H, MCH 31.5, MCHC 30.9 L, RDW Std Deviation 51.7 H, RDW Coeff of Angela 14.0, Plt Count 223, MPV 10.6, Immature Gran % (Auto) 0.800, Neut % (Auto) 61.1, Lymph % (Auto) 20.8, [place] % (Auto) 11.8 H, Eos % (Auto) 5.0, Baso % (Auto) 0.5, Absolute Neuts (auto) 4.7, Absolute Lymphs (auto) 1.59, Nucleated RBC % 0 01/20/20 04:50: Sodium 128 L, Potassium 5.3 H, Chloride 94 L, Carbon Dioxide 27.0, Anion Gap 7, BUN 61 H, Creatinine 4.79 H, Estim Creat Clear Calc 11.19, Est GFR (MDRD) Af Amer 12 L, Est GFR (MDRD) Non-Af 10 L, BUN/Creatinine Ratio 12.7, Glucose 298 H, Calcium 8.5, Phosphorus 7.0 H, Total Bilirubin 0.40, AST 23, ALT 35, Alkaline Phosphatase 330 H, Total Protein 7.7, Albumin 2.7 L, Globulin 5.0 H, Albumin/Globulin Ratio 0.5 L 01/20/20 04:50: Troponin I < 0.015 01/20/20 07:00: Troponin I 0.031 01/20/20 07:54: POC Glucose 311 H Current Medications Acetaminophen (Tylenol) 650 mg PO Q6H PRN PRN PRN Reason: Pain Score 1-10/Temp > 100.7 F Last Admin: 01/20/20 08:46 Dose: 650 mg Documented by: Amlodipine Besylate (Norvasc) 10 mg PO DAILY [facility] Last Admin: 01/20/20 08:40 Dose: 10 mg Documented by: Bupropion HCl (Wellbutrin Xl) 300 mg PO DAILY [facility] Last Admin: 01/20/20 08:43 Dose: 300 mg Documented by: Calcitriol (Rocaltrol) 0.25 mcg PO DAILY [facility] Last Admin: 01/20/20 08:37 Dose: 0.25 mcg Documented by: Calcium Acetate (Phoslo Gel Cap) 1,334 mg PO TIDCM [facility] Last Admin: 01/20/20 08:38 Dose: 1,334 mg Documented by: Carvedilol (Coreg) 6.25 mg PO BID [facility] Last Admin: 01/20/20 08:40 Dose: 6.25 mg Documented by: Dextrose (D50w Syringe) 0 gm IV X1 PRN; Protocol PRN Reason: Hypoglycemia Furosemide (Lasix) 80 mg PO DAILY [facility] Last Admin: 01/20/20 08:40 Dose: 80 mg Documented by: Gabapentin (Neurontin) 300 mg PO TID [facility] Last Admin: 01/20/20 06:37 Dose: 300 mg Documented by: Glucagon () 1 mg IM .X1 PRN PRN Reason: Hypoglycemia Heparin Sodium (Porcine) (Heparin Na) 5,000 unit SC Q8 [facility] Last Admin: 01/20/20 06:37 Dose: 5,000 unit Documented by: Influenza Virus Vaccine Quadrival (Flucelvax /Fluzone ) 0.5 ml IM .ONCE ONE Stop: 01/20/20 10:01 Last Admin: 01/20/20 08:48 Dose: 0.5 ml Documented by: Insulin Glargine (Lantus (Bkc)) 50 units SC QHS [facility] Last Admin: 01/19/20 22:25 Dose: 50 u Documented by: Insulin Human Lispro (Humalog Kwikpen (Bkc)) 28 unit SC TIDAC [facility] Last Admin: 01/20/20 08:38 Dose: 28 units Documented by: Insulin Human Lispro (Humalog Kwikpen (Bkc)) 0 unit SC ACHS [facility]; Protocol Last Admin: 01/20/20 08:38 Dose: 3 u Documented by: Levothyroxine Sodium (Synthroid) 200 mcg PO DAILY@0600 [facility] Last Admin: 01/20/20 06:37 Dose: 200 mcg Documented by: Losartan Potassium (Cozaar) 50 mg PO DAILY [facility] Last Admin: 01/20/20 08:41 Dose: 50 mg Documented by: Nicotine (Nicoderm Cq (Pbkc)) 21 mg TRANSDERM. DAILY [facility] Last Admin: 01/20/20 08:41 Dose: 21 mg Documented by: Nicotine Polacrilex (Rugby Nicotine (Bkc)) 2 mg PO Q2H PRN PRN PRN Reason: Nicotine Craving Nitroglycerin (Nitrostat) 0.4 mg SUBLINGUAL Q5M PRN PRN Reason: CARDIAC/CHEST PAIN Nitroglycerin (Nitrostat) 0.4 mg SUBLINGUAL Q5M PRN PRN Reason: CHEST PAIN Ondansetron HCl (Zofran) 4 mg IV Q8H PRN PRN PRN Reason: NAUSEA/VOMITING Ondansetron HCl (Zofran Odt) 4 mg PO Q8H PRN PRN PRN Reason: NAUSEA Pantoprazole Sodium (Protonix) 40 mg PO DAILY [facility] Last Admin: 01/20/20 08:43 Dose: 40 mg Documented by: Sertraline HCl (Zoloft) 100 mg PO DAILY [facility] Last Admin: 01/20/20 08:41 Dose: 100 mg Documented by: Sodium Chloride () 10 - 40 ml IV UD PRN PRN Reason: SALINE FLUSH Last Admin: 01/19/20 22:23 Dose: 10 ml Documented by: STROKE Vital Signs/Narrative: Vital Signs Temp Pulse Resp BP Pulse Ox 01/20/20 08:35 37.0 C 84 18 117/69 98 01/20/20 07:08 83 Medical Necessity - Tobacco Use Smoking Status: Current every day smoker Tobacco Use: Cigarettes Assessment/Plan All Active Problems (Last Updated 12/21/19 @ 19:[address] Homar Vivar, DO) Pressure injury of upper extremity, unstageable (Resolved) Cellulitis of left middle finger (Resolved) 1. failure to thrive PT OT plan back to [facility] pending authorization 2. Acute hypoxic respiratory insufficiency vascular congestion on CXR (personally reviewed) nephrology on consult for HD echo pending 3. ESRD continue HD per nephrology continue Phoslo, calcitriol 4. DM2 uncontrolled continue basal insulin, prandial and SSI monitor for now prior to making any further adjustments. 5. chronic conditions: stable, but complicate overall clinical picture depression: continue sertraline hypothyroidism: levothyroxine 6. VTE prophylaxis: SQ heparin Inpatient E&M: 52966 Subs Hosp L2
[2020-01-20] MEDS: 0.9% Saline Lock 10 ML Syringe IV (09:15)
[2020-01-20 12:15] LABS: Bedside Glucose 175 mg/dL (70-110)
[2020-01-20 15:25] LABS: Bedside Glucose 63 mg/dL (70-110)
--- NOTE | 2020-01-20 16:42 | CASEMGMT ---
FLORI YU chart review: patient was admitted -12/28/2019 for cellutlitis and weakness. Patient was discharged to [facility] after hospitalization. Patient was discharged from SNF 1 week ago and returned to [facility] on 01/19/20 for debility. Family states that they are unable to care for patient at home. Patient agreeable to SNF placement and will need Precert. FLORI YU updated SW.
[2020-01-20 16:45] LABS: Bedside Glucose 140 mg/dL (70-110)
--- NOTE | 2020-01-20 18:05 | CASEMGMT ---
SOCIAL WORK Informant: retail pharmacy manager Reason for Consult: Discharge Planning Met with patient in room to discuss discharge planning. Patient sleeping soundly, awakes easily. Introduced role and reason for referral. Patient reports unable to return home at discharge and requests referral to [facility] in [place]. Will need precert from [facility]. SW to follow up on Wednesday. Plan: to follow up on Wednesday to complete referral to [facility], will need precert prior to discharge. Fausto Mcallister, MOVEMENT ASSEMBLY FINAL INSPECTOR, VIDEO AND SOUND RECORDER
[2020-01-20] MEDS: tiZANidine HCl 2 MG Tablet PO (22:22)
--- NOTE | 2020-01-20 23:12 | DIALYSIS ---
HD x3.5 hours completed at 2255 on a 2K bath, tolerated well, UF 4000mL, accessed via right chest tunneled dialysis catheter, dressing changed, worked well
[2020-01-20] MEDS: Nystatin Powder 15gm Bottle 1 APPLIC TOPICAL (23:32)
[2020-01-21] VITALS (8 sets, daily range): BP systolic 97–116; BP diastolic 41–53; PULSE 79–99; RESP 16–18; TEMP 36.8–37.4; O2SAT 84–98
[2020-01-21] MEDS: Acetaminophen 325 MG Tablet 650 MG PO ×3 (04:42→16:51)
[2020-01-21] MEDS: Levothyroxine 100 MCG Tablet 200 MCG PO (04:44)
[2020-01-21] MEDS: Gabapentin 300 MG Capsule PO ×3 (04:44→21:26)
[2020-01-21] MEDS: Heparin Injection (Vial) 5,000 UNIT/ML VIAL 5000 UNIT SC ×3 (04:45→21:26)
--- NOTE | 2020-01-21 07:43 | CON.PCM_ITS ---
Consultation - Renal 01/21/20 PCP/ Referring MD: Requesting physician: Dr. Lerner Primary care physician: Dr. Iban Eldridge MD Reason for Consultation:: ESRD - History of Present Illness History of Present Illness: The patient is a 59 year old F with past history of ESRD, HTN, and T2DM is admitted with failure to thrive, generalized weakness and acute hypoxic respiratory failure. The patient was recently admitted for L middle finger cellulitis. The patient was found to have pulmonary vascular congestion. She usually dialyzes at [facility], but she missed HD on 01/19/20. The patient did received dialysis yesterday on 01/20/20. She denies SOB today. She denies CP, nausea or vomiting. She denies increasing LE edema. She tolerated dialysis well yesterday without cramping. - Allergies Allergies: Allergies codeine phosphate [From Tylenol-Codeine #3] Allergy (Verified 01/19/20 17:03) Swelling simvastatin [From Zocor] Allergy (Verified 01/19/20 17:03) Other - Current Medications Current Medications: Current Medications Acetaminophen (Tylenol) 650 mg PO Q6H PRN PRN PRN Reason: Pain Score 1-10/Temp > 100.7 F Last Admin: 01/21/20 04:42 Dose: 650 mg Documented by: Amlodipine Besylate (Norvasc) 10 mg PO DAILY [facility] Last Admin: 01/20/20 08:40 Dose: 10 mg Documented by: Bupropion HCl (Wellbutrin Xl) 300 mg PO DAILY [facility] Last Admin: 01/20/20 08:43 Dose: 300 mg Documented by: Calcitriol (Rocaltrol) 0.25 mcg PO DAILY [facility] Last Admin: 01/20/20 08:37 Dose: 0.25 mcg Documented by: Calcium Acetate (Phoslo Gel Cap) 1,334 mg PO TIDCM [facility] Last Admin: 01/20/20 16:42 Dose: 1,334 mg Documented by: Carvedilol (Coreg) 6.25 mg PO BID [facility] Last Admin: 01/20/20 23:18 Dose: 6.25 mg Documented by: Dextrose (D50w Syringe) 0 gm IV X1 PRN; Protocol PRN Reason: Hypoglycemia Furosemide (Lasix) 80 mg PO DAILY [facility] Last Admin: 01/20/20 08:40 Dose: 80 mg Documented by: Gabapentin (Neurontin) 300 mg PO TID [facility] Last Admin: 01/21/20 04:44 Dose: 300 mg Documented by: Glucagon () 1 mg IM .X1 PRN PRN Reason: Hypoglycemia Heparin Sodium (Porcine) (Heparin Na) 5,000 unit SC Q8 [facility] Last Admin: 01/21/20 04:45 Dose: 5,000 unit Documented by: Insulin Glargine (Lantus ([facility])) 50 units SC QHS [facility] Last Admin: 01/20/20 23:26 Dose: 50 u Documented by: Insulin Human Lispro (Humalog Kwikpen ([facility])) 28 unit SC TIDAC [facility] Last Admin: 01/20/20 16:37 Dose: Not Given Documented by: Insulin Human Lispro (Humalog Kwikpen ([facility])) 0 unit SC ACHS [facility]; Protocol Last Admin: 01/20/20 23:26 Dose: 2 u Documented by: Levothyroxine Sodium (Synthroid) 200 mcg PO DAILY@0600 [facility] Last Admin: 01/21/20 04:44 Dose: 200 mcg Documented by: Losartan Potassium (Cozaar) 50 mg PO DAILY [facility] Last Admin: 01/20/20 08:41 Dose: 50 mg Documented by: Nicotine (Nicoderm Cq ([facility] [place])) 21 mg TRANSDERM. DAILY [facility] Last Admin: 01/20/20 08:41 Dose: 21 mg Documented by: Nicotine Polacrilex (Rugby Nicotine ([facility])) 2 mg PO Q2H PRN PRN PRN Reason: Nicotine Craving Nitroglycerin (Nitrostat) 0.4 mg SUBLINGUAL Q5M PRN PRN Reason: CARDIAC/CHEST PAIN Nitroglycerin (Nitrostat) 0.4 mg SUBLINGUAL Q5M PRN PRN Reason: CHEST PAIN Nystatin (Mycostatin Powder) 1 applic TOPICAL BID [facility]; Protocol Last Admin: 01/20/20 23:32 Dose: 1 applicatio Documented by: Ondansetron HCl (Zofran) 4 mg IV Q8H PRN PRN PRN Reason: NAUSEA/VOMITING Ondansetron HCl (Zofran Odt) 4 mg PO Q8H PRN PRN PRN Reason: NAUSEA Pantoprazole Sodium (Protonix) 40 mg PO DAILY [facility] Last Admin: 01/20/20 08:43 Dose: 40 mg Documented by: Sertraline HCl (Zoloft) 100 mg PO DAILY [facility] Last Admin: 01/20/20 08:41 Dose: 100 mg Documented by: Sodium Chloride () 10 - 40 ml IV UD PRN PRN Reason: SALINE FLUSH Last Admin: 01/20/20 09:15 Dose: 20 ml Documented by: Tizanidine HCl (Zanaflex) 2 mg PO TID PRN PRN PRN Reason: muscle relaxant Last Admin: 01/20/20 22:22 Dose: 2 mg Documented by: - Past Medical History Past Medical History (Chronic Problems): Chronic Problems (Last Updated 12/21/19 @ 19:[address] Homar Vivar, DO) Hypertension (Chronic) Type 2 diabetes mellitus (Chronic) Hypothyroidism (Chronic) ESRD on hemodialysis (Chronic) Tobacco abuse (Chronic) - Past Surgical History Surgical History: noncontributory, - - Status post right mastectomy - Social History Smoking Status: Current every day smoker Alcohol: None Drugs: None - Family History Maternal History Items: Heart Disease Paternal History Items: Heart Disease Review of Systems Constitutional: Reports: Anorexia, Malaise, Weakness. Denies: Fever, Night Sweats Eyes: Denies: Blurred vision, Pain, Redness HEENT: Denies: Head Aches, Sinus Congestion, Sinus Drainage Cardiovascular: Denies: Chest Pain, Claudication, Orthopnea, Palpitations Respiratory: Reports: Shortness of breath upon exertion. Denies: Cough, Shortness of breath at rest, Sputum production Gastrointestinal: Denies: Abdominal Pain, Nausea, Vomiting Genitourinary: Denies: Dysuria Musculoskeletal: Denies: Joint Pain, Joint Tenderness Neurological: Denies: Numbness, Tingling Psychiatric: Denies: Anxiety, Depression, Homicidal Ideations, Suicidal Ideations Hematologic/ Lymphatic: Denies: Easy Bruising, Easy Bleeding - Physical Exam Vitals/I&O's: Vital Signs Temp Pulse Resp BP Pulse Ox 99.3 F H 92 18 116/53 L 96 01/21/20 03:43 01/21/20 03:43 01/21/20 03:43 01/21/20 03:43 01/21/20 03:55 Oxygen Flow Rate (L/min) 2 Oxygen Delivery Method Nasal Cannula Weight: 124.3 kg Body Mass Index (BMI) 47.5 Intake and Output for Last 24 Hours 01/19/20 01/20/20 01/21/20 23:59 23:59 23:59 Intake Total 1150 / 1750 1000 / 1000 Output Total 5100 / 5100 Balance -3950 / -3350 1000 / 1000 General: Alert, Oriented x3 HEENT: Atraumatic, PERRLA, EOMI Oral: Moist Mucosa Neck: Supple Lungs: Clear to auscultation - anteriorly Cardiovascular: Normal S1, Normal S2, No murmurs Abdomen: Bowel Sounds Present, Soft, Non Tender, Obese Extremities: No clubbing, No cyanosis, No edema Neurological: Neuro grossly intact Microbiology Past 72 Hours 01/20/20 09:50 Stool Stool Occult Blood (BRADY) - Final Laboratory Results 01/20/20 07:00: Troponin I 0.031 01/20/20 07:54: POC Glucose 311 H 01/20/20 12:09: POC Glucose 175 H 01/20/20 15:20: POC Glucose 63 L 01/20/20 16:36: POC Glucose 140 H Current Medications Acetaminophen (Tylenol) 650 mg PO Q6H PRN PRN PRN Reason: Pain Score 1-10/Temp > 100.7 F Last Admin: 01/21/20 04:42 Dose: 650 mg Documented by: Amlodipine Besylate (Norvasc) 10 mg PO DAILY [facility] Last Admin: 01/20/20 08:40 Dose: 10 mg Documented by: Bupropion HCl (Wellbutrin Xl) 300 mg PO DAILY [facility] Last Admin: 01/20/20 08:43 Dose: 300 mg Documented by: Calcitriol (Rocaltrol) 0.25 mcg PO DAILY [facility] Last Admin: 01/20/20 08:37 Dose: 0.25 mcg Documented by: Calcium Acetate (Phoslo Gel Cap) 1,334 mg PO TIDCM [facility] Last Admin: 01/20/20 16:42 Dose: 1,334 mg Documented by: Carvedilol (Coreg) 6.25 mg PO BID [facility] Last Admin: 01/20/20 23:18 Dose: 6.25 mg Documented by: Dextrose (D50w Syringe) 0 gm IV X1 PRN; Protocol PRN Reason: Hypoglycemia Furosemide (Lasix) 80 mg PO DAILY [facility] Last Admin: 01/20/20 08:40 Dose: 80 mg Documented by: Gabapentin (Neurontin) 300 mg PO TID [facility] Last Admin: 01/21/20 04:44 Dose: 300 mg Documented by: Glucagon () 1 mg IM .X1 PRN PRN Reason: Hypoglycemia Heparin Sodium (Porcine) (Heparin Na) 5,000 unit SC Q8 [facility] Last Admin: 01/21/20 04:45 Dose: 5,000 unit Documented by: Insulin Glargine (Lantus ([facility])) 50 units SC QHS [facility] Last Admin: 01/20/20 23:26 Dose: 50 u Documented by: Insulin Human Lispro (Humalog Kwikpen ([facility])) 28 unit SC TIDAC [facility] Last Admin: 01/20/20 16:37 Dose: Not Given Documented by: Insulin Human Lispro (Humalog Kwikpen ([facility])) 0 unit SC ACHS [facility]; Protocol Last Admin: 01/20/20 23:26 Dose: 2 u Documented by: Levothyroxine Sodium (Synthroid) 200 mcg PO DAILY@0600 [facility] Last Admin: 01/21/20 04:44 Dose: 200 mcg Documented by: Losartan Potassium (Cozaar) 50 mg PO DAILY [facility] Last Admin: 01/20/20 08:41 Dose: 50 mg Documented by: Nicotine (Nicoderm Cq ([facility] [place])) 21 mg TRANSDERM. DAILY [facility] Last Admin: 01/20/20 08:41 Dose: 21 mg Documented by: Nicotine Polacrilex (Rugby Nicotine ([facility])) 2 mg PO Q2H PRN PRN PRN Reason: Nicotine Craving Nitroglycerin (Nitrostat) 0.4 mg SUBLINGUAL Q5M PRN PRN Reason: CARDIAC/CHEST PAIN Nitroglycerin (Nitrostat) 0.4 mg SUBLINGUAL Q5M PRN PRN Reason: CHEST PAIN Nystatin (Mycostatin Powder) 1 applic TOPICAL BID [facility]; Protocol Last Admin: 01/20/20 23:32 Dose: 1 applicatio Documented by: Ondansetron HCl (Zofran) 4 mg IV Q8H PRN PRN PRN Reason: NAUSEA/VOMITING Ondansetron HCl (Zofran Odt) 4 mg PO Q8H PRN PRN PRN Reason: NAUSEA Pantoprazole Sodium (Protonix) 40 mg PO DAILY [facility] Last Admin: 01/20/20 08:43 Dose: 40 mg Documented by: Sertraline HCl (Zoloft) 100 mg PO DAILY [facility] Last Admin: 01/20/20 08:41 Dose: 100 mg Documented by: Sodium Chloride () 10 - 40 ml IV UD PRN PRN Reason: SALINE FLUSH Last Admin: 01/20/20 09:15 Dose: 20 ml Documented by: Tizanidine HCl (Zanaflex) 2 mg PO TID PRN PRN PRN Reason: muscle relaxant Last Admin: 01/20/20 22:22 Dose: 2 mg Documented by: Assessment/Plan All Active Problems (Last Updated 12/21/19 @ 19:[address] Homar Vivar, DO) Pressure injury of upper extremity, unstageable (Resolved) Cellulitis of left middle finger (Resolved) 1. ESRD. Usually dialyzes at [facility] on MWF schedule. She was dialyzed yesterday because she missed HD on 01/19/20. Will arrange for HD again tomorrow to get her back on schedule. 2. Anemia. Continue KANDI. Follow Hgb. 3. CKD-mineral bone disease. Phos was 7.0 on 01/20/20. Continue PhosLo with meals. Continue calcitriol. Recheck calcium and phosphorus in am. 4. HTN. BP is controlled. Continue current TW and BP medication. 5. Acute hypoxic respiratory failure. O>I with HD. More UF with dialysis tomorrow. 6. FTT. PT/OT. In process of SNF/rehab placement. D/w Dr. Vivar
--- NOTE | 2020-01-21 08:17 | CPS ---
PT PLACED BACK ON 2 LPM...91%
[2020-01-21] MEDS: Insulin Lispro 100 UNIT/ML INSULN.PEN SC ×2 (08:26→11:47)
[2020-01-21] MEDS: Insulin Lispro 100 UNIT/ML INSULN.PEN 28 UNIT SC ×3 (08:26→17:24)
[2020-01-21] MEDS: Calcium Acetate 667 MG Capsule 1334 MG PO ×3 (08:28→17:25)
[2020-01-21 08:33] LABS: Absolute Lymphocyte Count 1.25 X10^3/uL (0.83-4.51); Absolute Neutrophil Count 5.9 X10^3/uL (2.0-7.7); Basophil# 0.04 X10^3/uL; Basophil% 0.5 % (0-1); Eosinophil# 0.29 X10^3/uL; Eosinophils% 3.5 % (0-5); Hemoglobin 7.5 g/dL (12.0-15.0); Lymphocyte # 1.25 X10^3/ul (4.0); Lymphocyte % 14.9 % (19-41); Mean Corp Hgb Conc 31.3 g/dL (32-36); Mean Corpuscular Hgb 31.5 pg (27.0-32.0); Mean Corpuscular Volume 100.8 fL (81-99); Mean Platelet Vol. 10.4 fl (6.2-12.0); Monocyte# 0.84 X10^3/uL; NRBC Flagged by Analyzer 0 % (0-5); Neutrophil # 5.94 X10^3/uL (2.7-7.7); Neutrophil % 70.7 % (47-70); Platelet Count 202 K/mm3 (150-450); RBC Distribution Width CV 13.9 % (11.6-14.6); RBC Distribution Width SD 50.4 fl (35.1-43.9); Red Blood Count 2.38 M/mm3 (4.2-5.4); White Blood Count 8.4 K/mm3 (4.4-11.0)
[2020-01-21 08:49] LABS: Anion Gap 6 (5-15); BUN 36 mg/dL (7-18); BUN/Creat Ratio 10.3 RATIO (10-20); Calcium,Total 8.1 mg/dL (8.5-10.1); Chloride 92 mmol/L (98-107); Creatinine, Serum 3.48 mg/dL (0.55-1.02); EST Glomerular Filtration Rate 14 mL/min (>60); Est Glom Filt Rate - Afr Amer 17 mL/min (>60); Ferritin 405 ng/mL (8-252); Glucose 267 mg/dL (74-106); Potassium 4.5 mmol/L (3.5-5.1); Sodium Level 128 mmol/L (136-145)
[2020-01-21] MEDS: Pantoprazole Sodium 40 MG Tablet PO (10:53)
[2020-01-21] MEDS: Calcitriol 0.25 MCG Capsule PO (10:53)
[2020-01-21] MEDS: buPROPion (XL) 300 MG TABLET.XL PO (10:53)
[2020-01-21] MEDS: Carvedilol 6.25 MG Tablet PO ×2 (10:53→21:25)
[2020-01-21] MEDS: Sertraline 100 MG Tablet PO (10:53)
[2020-01-21] MEDS: Furosemide 80 MG Tablet PO (10:53)
[2020-01-21] MEDS: Losartan Potassium 50 MG Tablet PO (10:53)
[2020-01-21] MEDS: amLODIPine 10 MG Tablet PO (10:53)
[2020-01-21] MEDS: Nystatin Powder 15gm Bottle 1 APPLIC TOPICAL ×2 (10:57→22:06)
[2020-01-21] MEDS: tiZANidine HCl 2 MG Tablet PO (11:02)
--- NOTE | 2020-01-21 11:12 | PN_ITS ---
Reason for Visit: FTT Subjective: complains of back pain. Vitals/I&O's: Vital Signs Temp Pulse Resp BP Pulse Ox 37.2 C 99 18 112/52 L 97 01/21/20 09:12 01/21/20 09:12 01/21/20 09:12 01/21/20 09:12 01/21/20 09:12 Oxygen Flow Rate (L/min) 2 Oxygen Delivery Method Nasal Cannula Weight: 124.3 kg Body Mass Index (BMI) 47.5 Intake and Output for Last 24 Hours 01/19/20 01/20/20 01/21/20 23:59 23:59 23:59 Intake Total 1150 / 1750 1000 / 1000 Output Total 5100 / 5100 Balance -3950 / -3350 1000 / 1000 General: No apparent distress HEENT: Atraumatic, Normocephalic Oral: Moist Mucosa, No Gingival or Mucosal Lesions/ Ulcerations Neck: No Nodes, Thyroid Normal Size and Texture Lungs: Clear to auscultation, Normal air movement, No rhonchi, No wheeze Cardiovascular: Regular rate, Regular Rhythm, Normal S1, Normal S2 Abdomen: Bowel Sounds Present, Soft, Non Tender, Non-Distended Extremities: No edema, No Calf Tenderness Psych/Mental Status: Normal Affect, Appropriate Microbiology Past 72 Hours 01/20/20 09:50 Stool Stool Occult Blood (BRADY) - Final Laboratory Results 01/20/20 12:09: POC Glucose 175 H 01/20/20 15:20: POC Glucose 63 L 01/20/20 16:36: POC Glucose 140 H 01/21/20 08:25: WBC 8.4, RBC 2.38 L, Hgb 7.5 L, Hct 24.0 L, MCV 100.8 H, MCH 31.5, MCHC 31.3 L, RDW Std Deviation 50.4 H, RDW Coeff of Angela 13.9, Plt Count 202, MPV 10.4, Immature Gran % (Auto) 0.400, Neut % (Auto) 70.7 H, Lymph % (Auto) 14.9 L, [place] % (Auto) 10.0, Eos % (Auto) 3.5, Baso % (Auto) 0.5, Absolute Neuts (auto) 5.9, Absolute Lymphs (auto) 1.25, Nucleated RBC % 0 01/21/20 08:25: Sodium 128 L, Potassium 4.5, Chloride 92 L, Carbon Dioxide 30.0, Anion Gap 6, BUN 36 H, Creatinine 3.48 H, Estim Creat Clear Calc 15.40, Est GFR (MDRD) Af Amer 17 L, Est GFR (MDRD) Non-Af 14 L, BUN/Creatinine Ratio 10.3, Glucose 267 H, Calcium 8.1 L, Ferritin 405 H Current Medications Acetaminophen (Tylenol) 650 mg PO Q6H PRN PRN PRN Reason: Pain Score 1-10/Temp > 100.7 F Last Admin: 01/21/20 10:52 Dose: 650 mg Documented by: Amlodipine Besylate (Norvasc) 10 mg PO DAILY [facility] Last Admin: 01/21/20 10:53 Dose: 10 mg Documented by: Bupropion HCl (Wellbutrin Xl) 300 mg PO DAILY [facility] Last Admin: 01/21/20 10:53 Dose: 300 mg Documented by: Calcitriol (Rocaltrol) 0.25 mcg PO DAILY [facility] Last Admin: 01/21/20 10:53 Dose: 0.25 mcg Documented by: Calcium Acetate (Phoslo Gel Cap) 1,334 mg PO TIDCM [facility] Last Admin: 01/21/20 08:28 Dose: 1,334 mg Documented by: Carvedilol (Coreg) 6.25 mg PO BID [facility] Last Admin: 01/21/20 10:53 Dose: 6.25 mg Documented by: Dextrose (D50w Syringe) 0 gm IV X1 PRN; Protocol PRN Reason: Hypoglycemia Furosemide (Lasix) 80 mg PO DAILY [facility] Last Admin: 01/21/20 10:53 Dose: 80 mg Documented by: Gabapentin (Neurontin) 300 mg PO TID [facility] Last Admin: 01/21/20 04:44 Dose: 300 mg Documented by: Glucagon () 1 mg IM .X1 PRN PRN Reason: Hypoglycemia Heparin Sodium (Porcine) (Heparin Na) 5,000 unit SC Q8 [facility] Last Admin: 01/21/20 04:45 Dose: 5,000 unit Documented by: Insulin Glargine (Lantus ([facility])) 50 units SC QHS [facility] Last Admin: 01/20/20 23:26 Dose: 50 u Documented by: Insulin Human Lispro (Humalog Kwikpen ([facility] [place])) 28 unit SC TIDAC [facility] Last Admin: 01/21/20 08:26 Dose: 28 units Documented by: Insulin Human Lispro (Humalog Kwikpen ([facility] [place])) 0 unit SC ACHS [facility]; Protocol Last Admin: 01/21/20 08:26 Dose: 2 u Documented by: Levothyroxine Sodium (Synthroid) 200 mcg PO DAILY@0600 [facility] Last Admin: 01/21/20 04:44 Dose: 200 mcg Documented by: Losartan Potassium (Cozaar) 50 mg PO DAILY [facility] Last Admin: 01/21/20 10:53 Dose: 50 mg Documented by: Nicotine (Nicoderm Cq ([facility])) 21 mg TRANSDERM. DAILY [facility] Last Admin: 01/21/20 10:53 Dose: 21 mg Documented by: Nicotine Polacrilex (Rugby Nicotine ([facility] [place])) 2 mg PO Q2H PRN PRN PRN Reason: Nicotine Craving Nitroglycerin (Nitrostat) 0.4 mg SUBLINGUAL Q5M PRN PRN Reason: CARDIAC/CHEST PAIN Nystatin (Mycostatin Powder) 1 applic TOPICAL BID [facility]; Protocol Last Admin: 01/21/20 10:57 Dose: 1 applicatio Documented by: Ondansetron HCl (Zofran) 4 mg IV Q8H PRN PRN PRN Reason: NAUSEA/VOMITING Ondansetron HCl (Zofran Odt) 4 mg PO Q8H PRN PRN PRN Reason: NAUSEA Pantoprazole Sodium (Protonix) 40 mg PO DAILY [facility] Last Admin: 01/21/20 10:53 Dose: 40 mg Documented by: Sertraline HCl (Zoloft) 100 mg PO DAILY [facility] Last Admin: 01/21/20 10:53 Dose: 100 mg Documented by: Sodium Chloride () 10 - 40 ml IV UD PRN PRN Reason: SALINE FLUSH Last Admin: 01/20/20 09:15 Dose: 20 ml Documented by: Tizanidine HCl (Zanaflex) 2 mg PO TID PRN PRN PRN Reason: muscle relaxant Last Admin: 01/21/20 11:02 Dose: 2 mg Documented by: STROKE Vital Signs/Narrative: Vital Signs Temp Pulse Resp BP Pulse Ox 01/21/20 09:12 37.2 C 99 18 112/52 L 97 Medical Necessity - Tobacco Use Smoking Status: Current every day smoker Tobacco Use: Cigarettes Assessment/Plan All Active Problems (Last Updated 12/21/19 @ 19:[address] Homar Vivar, DO) Pressure injury of upper extremity, unstageable (Resolved) Cellulitis of left middle finger (Resolved) 1. failure to thrive * PT OT * plan back to SNF pending authorization 2. Acute hypoxic respiratory insufficiency * vascular congestion on CXR (personally reviewed) * nephrology on consult for HD * echo pending 3. ESRD * continue HD per nephrology * continue Phoslo, calcitriol 4. DM2 * uncontrolled * continue basal insulin, prandial and SSI * monitor for now prior to making any further adjustments. 5. chronic conditions: stable, but complicate overall clinical picture * depression: continue sertraline * hypothyroidism: levothyroxine 6. VTE prophylaxis: SQ heparin DW patient's niece and updated. Inpatient E&M: 38692 Subs Hosp L2
[2020-01-21 11:30] LABS: Bedside Glucose 258 mg/dL (70-110)
[2020-01-21 11:46] LABS: Bedside Glucose 177 mg/dL (70-110)
[2020-01-21 11:46] LABS: Bedside Glucose 231 mg/dL (70-110)
[2020-01-21 16:46] LABS: Bedside Glucose 115 mg/dL (70-110)
[2020-01-21 22:16] LABS: Bedside Glucose 125 mg/dL (70-110)
[2020-01-22] VITALS (7 sets, daily range): BP systolic 110–152; BP diastolic 54–84; PULSE 76–81; RESP 16–18; TEMP 36.6–36.9; O2SAT 93–100
[2020-01-22] MEDS: Acetaminophen 325 MG Tablet 650 MG PO ×3 (00:42→18:35)
[2020-01-22 01:06] LABS: Bedside Glucose 436 mg/dL (70-110)
[2020-01-22 05:58] LABS: Albumin, Serum 2.6 g/dL (3.2-5.0); BUN 49 mg/dL (7-18); BUN/Creat Ratio 10.8 RATIO (10-20); Calcium,Total 8.6 mg/dL (8.5-10.1); Chloride 93 mmol/L (98-107); Creatinine, Serum 4.53 mg/dL (0.55-1.02); EST Glomerular Filtration Rate 11 mL/min (>60); Est Glom Filt Rate - Afr Amer 13 mL/min (>60); Estimated Creatinine Clearance 11.83 ml/min; Glucose 112 mg/dL (74-106); Phosphorus 5.5 mg/dL (2.5-4.9); Potassium 4.5 mmol/L (3.5-5.1); Sodium Level 128 mmol/L (136-145)
[2020-01-22] MEDS: Heparin Injection (Vial) 5,000 UNIT/ML VIAL 5000 UNIT SC ×2 (06:06→12:51)
[2020-01-22] MEDS: Gabapentin 300 MG Capsule PO ×3 (06:06→22:58)
[2020-01-22] MEDS: Levothyroxine 100 MCG Tablet 200 MCG PO (06:07)
[2020-01-22 06:45] LABS: Bedside Glucose 126 mg/dL (70-110)
[2020-01-22] MEDS: Insulin Lispro 100 UNIT/ML INSULN.PEN 28 UNIT SC (09:14)
[2020-01-22 09:21] LABS: Bedside Glucose 141 mg/dL (70-110)
--- NOTE | 2020-01-22 12:01 | DIALYSIS ---
HD x 3.5 hours complete. Tolerated tx well. Ran on 2k bath. UF of 3700ml. Used right chest wall catheter. Catheter closed with heparin per fill volume. Caps placed. Dressing is dry and intact. Retacrit given as ordered. Report was given to FLORI [place].
[2020-01-22] MEDS: Epoetin Alfa epbx 10,000 UNITS/ML 5000 UNIT IV (12:18)
[2020-01-22] MEDS: Calcium Acetate 667 MG Capsule 1334 MG PO ×2 (12:19→17:15)
[2020-01-22] MEDS: Pantoprazole Sodium 40 MG Tablet PO (12:19)
[2020-01-22] MEDS: buPROPion (XL) 300 MG TABLET.XL PO (12:20)
[2020-01-22] MEDS: Sertraline 100 MG Tablet PO (12:20)
[2020-01-22] MEDS: Calcitriol 0.25 MCG Capsule PO (12:20)
[2020-01-22 12:26] LABS: Bedside Glucose 72 mg/dL (70-110)
[2020-01-22] MEDS: Carvedilol 6.25 MG Tablet PO ×2 (12:51→22:58)
[2020-01-22] MEDS: Losartan Potassium 50 MG Tablet PO (12:52)
[2020-01-22] MEDS: Nystatin Powder 15gm Bottle 1 APPLIC TOPICAL ×2 (12:52→22:57)
[2020-01-22] MEDS: amLODIPine 10 MG Tablet PO (12:52)
[2020-01-22] MEDS: Furosemide 80 MG Tablet PO (12:53)
[2020-01-22] MEDS: tiZANidine HCl 2 MG Tablet PO ×2 (12:56→22:57)
--- NOTE | 2020-01-22 12:57 | PN.RENAL_ITS ---
Subjective: no new complaints - Physical Exam Vitals/I&O's: Vital Signs Temp Pulse Resp BP Pulse Ox 98.4 F 78 18 139/66 H 94 01/22/20 11:59 01/22/20 11:59 01/22/20 11:59 01/22/20 11:59 01/22/20 08:00 Oxygen Flow Rate (L/min) 2 Oxygen Delivery Method Nasal Cannula Weight: 125.8 kg Body Mass Index (BMI) 47.5 Intake and Output for Last 24 Hours 01/20/20 01/21/20 01/22/20 23:59 23:59 23:59 Intake Total 1150 / 1750 1389 1200 / 1200 Output Total 5100 / 5100 0 / 0 Balance -3950 / -3350 1389 1200 1200 General: Alert, Oriented x3, Cooperative HEENT: Atraumatic, PERRLA, EOMI, Normocephalic Neck: Supple, No JVD, Negative Carotid Bruits Lungs: Clear to auscultation, Normal air movement Cardiovascular: Regular rate, No murmurs Abdomen: Bowel Sounds Present, Soft, Non Tender Extremities: No edema, Capillary Refill Less than 3 Seconds Skin: No rashes, No breakdown Musculoskeletal: No Tenderness to Palpation of Joints or Extremities Neurological: Cranial nerves II-XII grossly intact Psych/Mental Status: Normal Affect, Appropriate Microbiology Past 72 Hours 01/20/20 09:50 Stool Stool Occult Blood (BRADY) - Final Laboratory Results 01/21/20 16:36: POC Glucose 115 H 01/21/20 22:04: POC Glucose 125 H 01/22/20 00:47: POC Glucose 436 H 01/22/20 05:10: Sodium 128 L, Potassium 4.5, Chloride 93 L, Carbon Dioxide 29.0, BUN 49 H, Creatinine 4.53 H, Estim Creat Clear Calc 11.83, Est GFR (MDRD) Af Amer 13 L, Est GFR (MDRD) Non-Af 11 L, BUN/Creatinine Ratio 10.8, Glucose 112 H, Calcium 8.6, Phosphorus 5.5 H, Albumin 2.6 L 01/22/20 06:11: POC Glucose 126 H 01/22/20 09:11: POC Glucose 141 H 01/22/20 11:25: COVID-19 ([facility]) Pending 01/22/20 12:17: POC Glucose 72 Current Medications Acetaminophen (Tylenol) 650 mg PO Q6H PRN PRN PRN Reason: Pain Score 1-10/Temp > 100.7 F Last Admin: 01/22/20 10:26 Dose: 650 mg Documented by: Amlodipine Besylate (Norvasc) 10 mg PO DAILY [facility] Last Admin: 01/21/20 10:53 Dose: 10 mg Documented by: Bupropion HCl (Wellbutrin Xl) 300 mg PO DAILY [facility] Last Admin: 01/22/20 12:20 Dose: 300 mg Documented by: Calcitriol (Rocaltrol) 0.25 mcg PO DAILY [facility] Last Admin: 01/22/20 12:20 Dose: 0.25 mcg Documented by: Calcium Acetate (Phoslo Gel Cap) 1,334 mg PO TIDCM [facility] Last Admin: 01/22/20 12:19 Dose: 1,334 mg Documented by: Carvedilol (Coreg) 6.25 mg PO BID [facility] Last Admin: 01/21/20 21:25 Dose: 6.25 mg Documented by: Dextrose (D50w Syringe) 0 gm IV X1 PRN; Protocol PRN Reason: Hypoglycemia Furosemide (Lasix) 80 mg PO DAILY [facility] Last Admin: 01/21/20 10:53 Dose: 80 mg Documented by: Gabapentin (Neurontin) 300 mg PO TID [facility] Last Admin: 01/22/20 06:06 Dose: 300 mg Documented by: Glucagon () 1 mg IM .X1 PRN PRN Reason: Hypoglycemia Heparin Sodium (Porcine) (Heparin Na) 5,000 unit SC Q8 [facility] Last Admin: 01/22/20 06:06 Dose: 5,000 unit Documented by: Insulin Glargine (Lantus ([facility])) 50 units SC QHS [facility] Last Admin: 01/22/20 00:48 Dose: 50 u Documented by: Insulin Human Lispro (Humalog Kwikpen ([facility])) 28 unit SC TIDAC [facility] Last Admin: 01/22/20 09:14 Dose: 28 units Documented by: Insulin Human Lispro (Humalog Kwikpen ([facility])) 0 unit SC ACHS [facility]; Protocol Last Admin: 01/22/20 12:19 Dose: Not Given Documented by: Levothyroxine Sodium (Synthroid) 200 mcg PO DAILY@0600 [facility] Last Admin: 01/22/20 06:07 Dose: 200 mcg Documented by: Losartan Potassium (Cozaar) 50 mg PO DAILY [facility] Last Admin: 01/21/20 10:53 Dose: 50 mg Documented by: Nicotine (Nicoderm Cq ([facility])) 21 mg TRANSDERM. DAILY [facility] Last Admin: 01/22/20 12:20 Dose: 21 mg Documented by: Nicotine Polacrilex (Rugby Nicotine ([facility])) 2 mg PO Q2H PRN PRN PRN Reason: Nicotine Craving Nitroglycerin (Nitrostat) 0.4 mg SUBLINGUAL Q5M PRN PRN Reason: CARDIAC/CHEST PAIN Nystatin (Mycostatin Powder) 1 applic TOPICAL BID [facility]; Protocol Last Admin: 01/21/20 22:06 Dose: 1 applicatio Documented by: Ondansetron HCl (Zofran) 4 mg IV Q8H PRN PRN PRN Reason: NAUSEA/VOMITING Ondansetron HCl (Zofran Odt) 4 mg PO Q8H PRN PRN PRN Reason: NAUSEA Pantoprazole Sodium (Protonix) 40 mg PO DAILY [facility] Last Admin: 01/22/20 12:19 Dose: 40 mg Documented by: Sertraline HCl (Zoloft) 100 mg PO DAILY [facility] Last Admin: 01/22/20 12:20 Dose: 100 mg Documented by: Sodium Chloride () 10 - 40 ml IV UD PRN PRN Reason: SALINE FLUSH Last Admin: 01/20/20 09:15 Dose: 20 ml Documented by: Tizanidine HCl (Zanaflex) 2 mg PO TID PRN PRN PRN Reason: muscle relaxant Last Admin: 01/21/20 11:02 Dose: 2 mg Documented by: Medical Necessity - Tobacco Use Smoking Status: Current every day smoker Tobacco Use: Cigarettes Assessment/Plan All Active Problems (Last Updated 12/21/19 @ 19:[address] Homar Vivar, DO) Pressure injury of upper extremity, unstageable (Resolved) Cellulitis of left middle finger (Resolved) 1. ESRD. Usually dialyzes at [facility] on MWF schedule. seen on HD today UF upto 4 L as tolerated 2. Anemia. Continue KANDI. Follow Hgb. 3. CKD-mineral bone disease. Phos was 7.0 on 10/3/20. Continue PhosLo with meals. Continue calcitriol. 4. HTN. BP is controlled. 5. Acute hypoxic respiratory failure. O>I with HD 6. FTT. PT/OT. In process of SNF/rehab placement.
--- NOTE | 2020-01-22 13:02 | CASEMGMT ---
Social Work Note SW updated that pt's niece Urvashi is requesting [facility]. SW in to speak with pt. Pt agreeable to [facility]. SW placed a call to Feli at [facility] and left message regarding referral. SW faxed referral. Plan: [facility] pending acceptance and pre-cert [employer] [place]
--- NOTE | 2020-01-22 14:02 | PN_ITS ---
Reason for Visit: Follow-up for back pain, arthritis functional capacity and hemodialysis. Objective: Patient blood pressure and heart rate are controlled. Patient has large abdominal distention and it seems acute on chronic related with ascites and fat. Patient undergoing hemodialysis. Physical exam General: Alert, Oriented x3, Cooperative HEENT: Atraumatic, PERRLA, EOMI, Normocephalic Oral: No Gingival or Mucosal Lesions/ Ulcerations Neck: Supple, No JVD, Negative Carotid Bruits. Right subclavian permacath Lungs: Air entry diminished in bilateral lung bases. No crepitation/rhonchi Cardiovascular: Regular rate, Regular Rhythm, Normal S1, Normal S2, No murmurs Abdomen: Bowel Sounds Present, Soft, Non Tender, distended with ventral hernia, reducible. Old surgical scar in the upper midline. Small umbilical hernia. Ascites present. : No renal angle tenderness. No suprapubic tenderness. Extremities: No edema, Capillary Refill Less than 3 Seconds Skin: No rashes, No breakdown Musculoskeletal: No Tenderness to Palpation of Joints or Extremities. Mild to moderate muscle atrophy in extremities. Neurological: Cranial nerves II-XII grossly intact, Deep Tendon Reflexes 2+/4 and Symmetrical, Neuro grossly intact Psych/Mental Status: Normal Affect, Appropriate. Vitals/I&O's: Vital Signs Temp Pulse Resp BP Pulse Ox 98.1 F 81 16 146/78 H 100 01/22/20 12:59 01/22/20 12:59 01/22/20 12:59 01/22/20 12:59 01/22/20 12:59 Oxygen Flow Rate (L/min) 2 Oxygen Delivery Method Nasal Cannula Weight: 277 lb 5.464 oz Body Mass Index (BMI) 47.5 Intake and Output for Last 24 Hours 01/20/20 01/21/20 01/22/20 23:59 23:59 23:59 Intake Total 1150 / 1750 1389 / 1989 1200 / 1200 Output Total 5100 / 5100 0 / 0 Balance -3950 / -3350 1390 / 1989 1200 / 1200 Microbiology Past 72 Hours 01/20/20 09:50 Stool Stool Occult Blood (BRADY) - Final Laboratory Results 01/21/20 16:36: POC Glucose 115 H 01/21/20 22:04: POC Glucose 125 H 01/22/20 00:47: POC Glucose 436 H 01/22/20 05:10: Sodium 128 L, Potassium 4.5, Chloride 93 L, Carbon Dioxide 29.0, BUN 49 H, Creatinine 4.53 H, Estim Creat Clear Calc 11.83, Est GFR (MDRD) Af Amer 13 L, Est GFR (MDRD) Non-Af 11 L, BUN/Creatinine Ratio 10.8, Glucose 112 H, Calcium 8.6, Phosphorus 5.5 H, Albumin 2.6 L 01/22/20 06:11: POC Glucose 126 H 01/22/20 09:11: POC Glucose 141 H 01/22/20 11:25: COVID-19 (SUELLEN) Pending 01/22/20 12:17: POC Glucose 72 Current Medications Acetaminophen (Tylenol) 650 mg PO Q6H PRN PRN PRN Reason: Pain Score 1-10/Temp > 100.7 F Last Admin: 01/22/20 10:26 Dose: 650 mg Documented by: Amlodipine Besylate (Norvasc) 10 mg PO DAILY [facility] Last Admin: 01/22/20 12:52 Dose: 10 mg Documented by: Bupropion HCl (Wellbutrin Xl) 300 mg PO DAILY [facility] Last Admin: 01/22/20 12:20 Dose: 300 mg Documented by: Calcitriol (Rocaltrol) 0.25 mcg PO DAILY [facility] Last Admin: 01/22/20 12:20 Dose: 0.25 mcg Documented by: Calcium Acetate (Phoslo Gel Cap) 1,334 mg PO TIDCM [facility] Last Admin: 01/22/20 12:19 Dose: 1,334 mg Documented by: Carvedilol (Coreg) 6.25 mg PO BID [facility] Last Admin: 01/22/20 12:51 Dose: 6.25 mg Documented by: Dextrose (D50w Syringe) 0 gm IV X1 PRN; Protocol PRN Reason: Hypoglycemia Furosemide (Lasix) 80 mg PO DAILY [facility] Last Admin: 01/22/20 12:53 Dose: 80 mg Documented by: Gabapentin (Neurontin) 300 mg PO TID [facility] Last Admin: 01/22/20 12:51 Dose: 300 mg Documented by: Glucagon () 1 mg IM .X1 PRN PRN Reason: Hypoglycemia Heparin Sodium (Porcine) (Heparin Na) 5,000 unit SC Q8 [facility] Last Admin: 01/22/20 12:51 Dose: 5,000 unit Documented by: Insulin Glargine (Lantus ([facility])) 50 units SC QHS [facility] Last Admin: 01/22/20 00:48 Dose: 50 u Documented by: Insulin Human Lispro (Humalog Kwikpen ([facility])) 28 unit SC TIDAC [facility] Last Admin: 01/22/20 12:52 Dose: Not Given Documented by: Insulin Human Lispro (Humalog Kwikpen ([facility])) 0 unit SC ACHS [facility]; Protocol Last Admin: 01/22/20 12:19 Dose: Not Given Documented by: Levothyroxine Sodium (Synthroid) 200 mcg PO DAILY@0600 [facility] Last Admin: 01/22/20 06:07 Dose: 200 mcg Documented by: Losartan Potassium (Cozaar) 50 mg PO DAILY [facility] Last Admin: 01/22/20 12:52 Dose: 50 mg Documented by: Nicotine (Nicoderm Cq ([facility])) 21 mg TRANSDERM. DAILY [facility] Last Admin: 01/22/20 12:20 Dose: 21 mg Documented by: Nicotine Polacrilex (Rugby Nicotine ([facility])) 2 mg PO Q2H PRN PRN PRN Reason: Nicotine Craving Nitroglycerin (Nitrostat) 0.4 mg SUBLINGUAL Q5M PRN PRN Reason: CARDIAC/CHEST PAIN Nystatin (Mycostatin Powder) 1 applic TOPICAL BID [facility]; Protocol Last Admin: 01/22/20 12:52 Dose: 1 applicatio Documented by: Ondansetron HCl (Zofran) 4 mg IV Q8H PRN PRN PRN Reason: NAUSEA/VOMITING Ondansetron HCl (Zofran Odt) 4 mg PO Q8H PRN PRN PRN Reason: NAUSEA Pantoprazole Sodium (Protonix) 40 mg PO DAILY [facility] Last Admin: 01/22/20 12:19 Dose: 40 mg Documented by: Sertraline HCl (Zoloft) 100 mg PO DAILY [facility] Last Admin: 01/22/20 12:20 Dose: 100 mg Documented by: Sodium Chloride () 10 - 40 ml IV UD PRN PRN Reason: SALINE FLUSH Last Admin: 01/20/20 09:15 Dose: 20 ml Documented by: Tizanidine HCl (Zanaflex) 2 mg PO TID PRN PRN PRN Reason: muscle relaxant Last Admin: 01/22/20 12:56 Dose: 2 mg Documented by: STROKE Vital Signs/Narrative: Vital Signs Temp Pulse Resp BP Pulse Ox 01/22/20 12:59 98.1 F 81 16 146/78 H 100 01/22/20 11:59 98.4 F 78 18 139/66 H Medical Necessity - Tobacco Use Smoking Status: Current every day smoker Tobacco Use: Cigarettes Assessment/Plan All Active Problems (Last Updated 12/21/19 @ 19:[address] Homar Vivar, DO) Pressure injury of upper extremity, unstageable (Resolved) Cellulitis of left middle finger (Resolved) This is a 59-year-old female with multiple comorbidities admitted with generalized weakness, decreased functional capacity and failure to thrive. 1. failure to thrive PT and OT. Pre-CERT pending for SNF placement. 2. Acute hypoxic respiratory insufficiency: Chest x-ray shows vascular co ngestion. Patient also has mild to moderate ascites. Patient is undergoing hemodialysis. 4 L of ultrafiltration as per tolerated. 2D echo reported as Interpretation Summary The estimated ejection fraction is 60 %. Diastolic function is indeterminate. Mild diffuse aortic valve thickening. Mild aortic stenosis. 3. ESRD on hemodialysis with bone mineral disease * continue Phoslo, calcitriol. Nephrology consult reviewed. 4. DM2: Uncontrolled. Currently patient is running low blood sugar last 172. Hold scheduled Lantus and lispro insulin. 5. chronic conditions: Anemia of chronic disease/ESRD. Multiple comorbidities complicates the present care and expect difficult and delay recovery. Hemoglobin is about 7.5 g%. * depression: continue sertraline * hypothyroidism: levothyroxine 6. VTE prophylaxis: SQ heparin. Discontinue if platelet count drops less than 50,000 or hemoglobin less than 8 g% Inpatient E&M: 01386 Subs Hosp L2
--- NOTE | 2020-01-22 14:54 | CASEMGMT ---
Social Work Note SW received call from Feli at [facility] asking about pt's dialysis and how pt transported to dialysis from [facility]. SW in to speak with pt. Pt states she transported via wheelchair van to dialysis and her chair time was 12:00pm. ANAHY placed a call back to Feli at [facility] and updated her. Feli states she called [facility] and pt's chair time is 12:45pm. Feli states [facility] will accept and she will submit for pre-cert. Plan: [facility] pending pre-cert Genna Ellington [employer] PAR[employer], [employer]
[2020-01-22 16:12] LABS: Hematocrit 23.9 % (37-47); Hemoglobin 7.2 g/dL (12.0-15.0)
[2020-01-22 16:31] LABS: Bedside Glucose 143 mg/dL (70-110)
[2020-01-22] MEDS: Insulin Lispro 100 UNIT/ML INSULN.PEN SC (22:58)
[2020-01-22 23:06] LABS: Bedside Glucose 250 mg/dL (70-110)
[2020-01-23] VITALS (9 sets, daily range): BP systolic 112–146; BP diastolic 53–73; PULSE 68–87; RESP 16–18; TEMP 36.3–36.9; O2SAT 89–99
[2020-01-23 06:33] LABS: Absolute Neutrophil Count 4.1 X10^3/uL (2.0-7.7); Basophil# 0.03 X10^3/uL; Basophil% 0.5 % (0-1); Eosinophil# 0.25 X10^3/uL; Eosinophils% 3.8 % (0-5); Hematocrit 22.4 % (37-47); Hemoglobin 6.8 g/dL (12.0-15.0); Lymphocyte % 18.4 % (19-41); Mean Corp Hgb Conc 30.4 g/dL (32-36); Mean Corpuscular Hgb 31.1 pg (27.0-32.0); Mean Corpuscular Volume 102.3 fL (81-99); Mean Platelet Vol. 10.8 fl (6.2-12.0); Monocyte# 0.82 X10^3/uL; Monocyte% 12.6 % (0-10); NRBC Flagged by Analyzer 0 % (0-5); Platelet Count 177 K/mm3 (150-450); RBC Distribution Width SD 52.1 fl (35.1-43.9); Red Blood Count 2.19 M/mm3 (4.2-5.4); White Blood Count 6.5 K/mm3 (4.4-11.0)
[2020-01-23] MEDS: Acetaminophen 325 MG Tablet 650 MG PO ×2 (06:42→15:38)
[2020-01-23] MEDS: Gabapentin 300 MG Capsule PO ×2 (06:42→13:26)
[2020-01-23] MEDS: Levothyroxine 100 MCG Tablet 200 MCG PO (06:42)
[2020-01-23] MEDS: Insulin Lispro 100 UNIT/ML INSULN.PEN SC ×2 (06:43→11:31)
[2020-01-23 06:51] LABS: Bedside Glucose 242 mg/dL (70-110)
[2020-01-23 07:04] LABS: Anion Gap 7 (5-15); BUN 41 mg/dL (7-18); BUN/Creat Ratio 11.1 RATIO (10-20); Calcium,Total 8.3 mg/dL (8.5-10.1); Chloride 93 mmol/L (98-107); EST Glomerular Filtration Rate 13 mL/min (>60); Est Glom Filt Rate - Afr Amer 16 mL/min (>60); Estimated Creatinine Clearance 14.49 ml/min; Glucose 234 mg/dL (74-106); Potassium 4.3 mmol/L (3.5-5.1); Sodium Level 128 mmol/L (136-145)
[2020-01-23] MEDS: Sertraline 100 MG Tablet PO (07:49)
[2020-01-23] MEDS: Pantoprazole Sodium 40 MG Tablet PO (07:49)
[2020-01-23] MEDS: amLODIPine 10 MG Tablet PO (07:49)
[2020-01-23] MEDS: Calcium Acetate 667 MG Capsule 1334 MG PO ×2 (07:49→13:25)
[2020-01-23] MEDS: Carvedilol 6.25 MG Tablet PO (07:50)
[2020-01-23] MEDS: Calcitriol 0.25 MCG Capsule PO (07:50)
[2020-01-23] MEDS: Furosemide 80 MG Tablet PO (07:50)
[2020-01-23] MEDS: Losartan Potassium 50 MG Tablet PO (07:50)
[2020-01-23] MEDS: Nystatin Powder 15gm Bottle 1 APPLIC TOPICAL (07:50)
[2020-01-23] MEDS: buPROPion (XL) 300 MG TABLET.XL PO (07:51)
[2020-01-23] MEDS: tiZANidine HCl 2 MG Tablet PO ×2 (07:54→15:38)
--- NOTE | 2020-01-23 11:15 | PCM.PN.REN ---
Subjective: no new events - Physical Exam Vitals/I&O's: Vital Signs Temp Pulse Resp BP Pulse Ox 98.5 F 80 18 146/55 H 97 01/23/20 07:45 01/23/20 07:45 01/23/20 07:45 01/23/20 07:45 01/23/20 07:45 Oxygen Flow Rate (L/min) 2 Oxygen Delivery Method Nasal Cannula Weight: 125.1 kg Body Mass Index (BMI) 47.5 Intake and Output for Last 24 Hours 01/21/20 01/22/20 01/23/20 23:59 23:59 23:59 Intake Total 1389 1550 / 1550 690 / 690 Output Total 0 / 0 Balance 1389 1550 / 1550 690 / 690 General: Alert, Oriented x3, Cooperative HEENT: Atraumatic, PERRLA, EOMI, Normocephalic Neck: Supple, No JVD, Negative Carotid Bruits Lungs: Clear to auscultation, Normal air movement Cardiovascular: Regular rate, No murmurs Abdomen: Bowel Sounds Present, Soft, Non Tender Extremities: No edema, Capillary Refill Less than 3 Seconds Skin: No rashes, No breakdown Musculoskeletal: No Tenderness to Palpation of Joints or Extremities Neurological: Cranial nerves II-XII grossly intact Psych/Mental Status: Normal Affect, Appropriate Microbiology Past 72 Hours 01/20/20 09:50 Stool Stool Occult Blood (BRADY) - Final Laboratory Results 01/22/20 11:25: COVID-19 (SUELLEN) Not Detected 01/22/20 12:17: POC Glucose 72 01/22/20 15:47: Hgb 7.2 L, Hct 23.9 L 01/22/20 16:26: POC Glucose 143 H 01/22/20 22:57: POC Glucose 250 H 01/23/20 06:15: WBC 6.5, RBC 2.19 L, Hgb 6.8 L, Hct 22.4 L, MCV 102.3 H, MCH 31.1, MCHC 30.4 L, RDW Std Deviation 52.1 H, RDW Coeff of Angela 14.0, Plt Count 177, MPV 10.8, Immature Gran % (Auto) 1.700 H, Neut % (Auto) 63.0, Lymph % (Auto) 18.4 L, Maury % (Auto) 12.6 H, Eos % (Auto) 3.8, Baso % (Auto) 0.5, Absolute Neuts (auto) 4.1, Absolute Lymphs (auto) 1.20, Nucleated RBC % 0 01/23/20 06:15: Sodium 128 L, Potassium 4.3, Chloride 93 L, Carbon Dioxide 28.0, Anion Gap 7, BUN 41 H, Creatinine 3.70 H, Estim Creat Clear Calc 14.49, Est GFR (MDRD) Af Amer 16 L, Est GFR (MDRD) Non-Af 13 L, BUN/Creatinine Ratio 11.1, Glucose 234 H, Calcium 8.3 L 01/23/20 06:39: POC Glucose 242 H 01/23/20 07:58: Blood Type O POSITIVE, Antibody Screen NEGATIVE, Crossmatch See Detail Current Medications Acetaminophen (Tylenol) 650 mg PO Q6H PRN PRN PRN Reason: Pain Score 1-10/Temp > 100.7 F Last Admin: 01/23/20 06:42 Dose: 650 mg Documented by: Amlodipine Besylate (Norvasc) 10 mg PO DAILY [facility] Last Admin: 01/23/20 07:49 Dose: 10 mg Documented by: Bupropion HCl (Wellbutrin Xl) 300 mg PO DAILY [facility] Last Admin: 01/23/20 07:51 Dose: 300 mg Documented by: Calcitriol (Rocaltrol) 0.25 mcg PO DAILY [facility] Last Admin: 01/23/20 07:50 Dose: 0.25 mcg Documented by: Calcium Acetate (Phoslo Gel Cap) 1,334 mg PO TIDCM [facility] Last Admin: 01/23/20 07:49 Dose: 1,334 mg Documented by: Carvedilol (Coreg) 6.25 mg PO BID [facility] Last Admin: 01/23/20 07:50 Dose: 6.25 mg Documented by: Dextrose (D50w Syringe) 0 gm IV X1 PRN; Protocol PRN Reason: Hypoglycemia Furosemide (Lasix) 80 mg PO DAILY [facility] Last Admin: 01/23/20 07:50 Dose: 80 mg Documented by: Gabapentin (Neurontin) 300 mg PO TID [facility] Last Admin: 01/23/20 06:42 Dose: 300 mg Documented by: Glucagon () 1 mg IM .X1 PRN PRN Reason: Hypoglycemia Insulin Human Lispro (Humalog Kwikpen ([facility])) 0 unit SC ACHS [facility]; Protocol Last Admin: 01/23/20 06:43 Dose: 2 u Documented by: Levothyroxine Sodium (Synthroid) 200 mcg PO DAILY@0600 [facility] Last Admin: 01/23/20 06:42 Dose: 200 mcg Documented by: Losartan Potassium (Cozaar) 50 mg PO DAILY [facility] Last Admin: 01/23/20 07:50 Dose: 50 mg Documented by: Nicotine (Nicoderm Cq ([facility])) 21 mg TRANSDERM. DAILY [facility] Last Admin: 01/23/20 07:50 Dose: 21 mg Documented by: Nicotine Polacrilex (Rugby Nicotine ([facility])) 2 mg PO Q2H PRN PRN PRN Reason: Nicotine Craving Nitroglycerin (Nitrostat) 0.4 mg SUBLINGUAL Q5M PRN PRN Reason: CARDIAC/CHEST PAIN Nystatin (Mycostatin Powder) 1 applic TOPICAL BID [facility]; Protocol Last Admin: 01/23/20 07:50 Dose: 1 applicatio Documented by: Ondansetron HCl (Zofran) 4 mg IV Q8H PRN PRN PRN Reason: NAUSEA/VOMITING Ondansetron HCl (Zofran Odt) 4 mg PO Q8H PRN PRN PRN Reason: NAUSEA Oxycodone HCl (Oxyir) 5 mg PO Q4H PRN PRN PRN Reason: Pain Score 4-10/10 Pantoprazole Sodium (Protonix) 40 mg PO DAILY [facility] Last Admin: 01/23/20 07:49 Dose: 40 mg Documented by: Sertraline HCl (Zoloft) 100 mg PO DAILY [facility] Last Admin: 01/23/20 07:49 Dose: 100 mg Documented by: Sodium Chloride () 10 - 40 ml IV UD PRN PRN Reason: SALINE FLUSH Last Admin: 01/20/20 09:15 Dose: 20 ml Documented by: Tizanidine HCl (Zanaflex) 2 mg PO TID PRN PRN PRN Reason: muscle relaxant Last Admin: 01/23/20 07:54 Dose: 2 mg Documented by: Medical Necessity - Tobacco Use Smoking Status: Current every day smoker Tobacco Use: Cigarettes Assessment/Plan All Active Problems (Last Updated 12/21/19 @ 19:[address] Homar Vivar, DO) Pressure injury of upper extremity, unstageable (Resolved) Cellulitis of left middle finger (Resolved) 1. ESRD. Usually dialyzes at [facility] on MWF schedule. continue same schedule 2. Anemia. HB is lower. TSATs are more than 30 percent. continue KANDI with HD. PRBC today 3. CKD-mineral bone disease. phos is better. continue binders for now. 4. HTN. BP is controlled. 5. hyponatremia. has extra fluid on board. likely fluid related. continue UF as tolerated waiting for NH placement
--- NOTE | 2020-01-23 11:18 | DS.PCM_ITS ---
Discharge Date and Diagnosis Date of Admission: 01/19/20 Date of Discharge: 01/23/20 - Secondary Discharge Diagnosis Chronic Problems: Chronic Problems (Last Updated 12/21/19 @ 19:[address] Homar Vivar, DO) Hypertension (Chronic) Type 2 diabetes mellitus (Chronic) Hypothyroidism (Chronic) ESRD on hemodialysis (Chronic) Tobacco abuse (Chronic) Hospital Course and Treatment Operations: None Summary of Care Provided: [] This is a 59-year-old female with multiple comorbidities admitted with generalized weakness, decreased functional capacity and failure to thrive. 1. failure to thrive PT and OT. 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 2. Acute hypoxic respiratory insufficiency: Chest x-ray shows vascular congestion. Patient also has mild to moderate ascites. Patient is undergoing hemodialysis. 4 L of ultrafiltration as per tolerated. 2D echo reported as Interpretation Summary The estimated ejection fraction is 60 %. Diastolic function is indeterminate. Mild diffuse aortic valve thickening. Mild aortic stenosis. 3. ESRD on hemodialysis with bone mineral disease with acute on chronic anemia of chronic kidney disease complicated by subcu heparin: DVT prophylaxis dose of subcu heparin discontinued yesterday. 1 unit of PRBC transfusion is transfused posttransfusion H&H increased from 6.8/-8.0/.6. Patient is discharged to SNF. * continue Phoslo, calcitriol. Nephrology consult reviewed. 4. DM2: Uncontrolled. Currently patient is running low blood sugar last 172. Hold scheduled Lantus and lispro insulin. 5. chronic conditions: Anemia of chronic disease/ESRD. Multiple comorbidities complicates the present care and expect difficult and delay recovery. Hemoglobin is about 7.5 g%. * depression: continue sertraline * hypothyroidism: levothyroxine 6. VTE prophylaxis: Heparin subcu this was discontinued on 01/22 2020. Laboratory Results 01/22/20 11:25: COVID-19 (SUELLEN) Not Detected 01/22/20 16:26: POC Glucose 143 H 01/22/20 22:57: POC Glucose 250 H 01/23/20 06:15: WBC 6.5, RBC 2.19 L, Hgb 6.8 L, Hct 22.4 L, MCV 102.3 H, MCH 31.1, MCHC 30.4 L, RDW Std Deviation 52.1 H, RDW Coeff of Angela 14.0, Plt Count 177, MPV 10.8, Immature Gran % (Auto) 1.700 H, Neut % (Auto) 63.0, Lymph % (Auto) 18.4 L, Kent % (Auto) 12.6 H, Eos % (Auto) 3.8, Baso % (Auto) 0.5, Absolute Neuts (auto) 4.1, Absolute Lymphs (auto) 1.20, Nucleated RBC % 0 01/23/20 06:15: Sodium 128 L, Potassium 4.3, Chloride 93 L, Carbon Dioxide 28.0, Anion Gap 7, BUN 41 H, Creatinine 3.70 H, Estim Creat Clear Calc 14.49, Est GFR (MDRD) Af Amer 16 L, Est GFR (MDRD) Non-Af 13 L, BUN/Creatinine Ratio 11.1, Glucose 234 H, Calcium 8.3 L 01/23/20 06:39: POC Glucose 242 H 01/23/20 07:58: Blood Type O POSITIVE, Antibody Screen NEGATIVE, Crossmatch See Detail 01/23/20 11:30: POC Glucose 352 H 01/23/20 15:08: Hgb 8.0 L, Hct 25.6 L Objective: Patient did not had external bleeding including hematochezia, melena or hematemesis. Patient makes about 200 mL of urine daily. Hemoglobin gradually dropped from 7.7-6.8 mainly secondary to heparin subcu DVT prophylaxis. 1 unit of PRBC ordered. Patient also felt dizzy on changing the position from bed to chair. Blood pressure 146/55 Physical exam General: Alert, Oriented x3, Cooperative HEENT: Atraumatic, PERRLA, EOMI, Normocephalic Oral: No Gingival or Mucosal Lesions/ Ulcerations Neck: Supple, No JVD, Negative Carotid Bruits. Right subclavian permacath Lungs: Air entry diminished in bilateral lung bases. No crepitation/rhonchi Cardiovascular: Regular rate, Regular Rhythm, Normal S1, Normal S2, No murmurs Abdomen: Bowel Sounds Present, Soft, Non Tender, distended with ventral hernia, reducible. Old surgical scar in the upper midline. Small umbilical hernia. Ascites present. : No renal angle tenderness. No suprapubic tenderness. Extremities: No significant ankle or leg edema, Capillary Refill Less than 3 Seconds Skin: No rashes, No breakdown Musculoskeletal: No Tenderness to Palpation of Joints or Extremities. Mild to moderate muscle atrophy in extremities. Neurological: Cranial nerves II-XII grossly intact, Deep Tendon Reflexes 2+/4 and Symmetrical, Neuro grossly intact Psych/Mental Status: Normal Affect, Appropriate. - Physical Exam Vitals/I&O's: Vital Signs Temp Pulse Resp BP Pulse Ox 98.5 F 80 18 146/55 H 97 01/23/20 07:45 01/23/20 07:45 01/23/20 07:45 01/23/20 07:45 01/23/20 07:45 Oxygen Flow Rate (L/min) 2 Oxygen Delivery Method Nasal Cannula Weight: 275 lb 12.772 oz Body Mass Index (BMI) 47.5 Intake and Output for Last 24 Hours 01/21/20 01/22/20 01/23/20 23:59 23:59 23:59 Intake Total 1389 1550 / 1550 690 / 690 Output Total 0 / 0 Balance 1391989 1550 / 1550 690 / 690 Microbiology Past 72 Hours 01/20/20 09:50 Stool Stool Occult Blood (BRADY) - Final Laboratory Results 01/22/20 11:25: COVID-19 (SUELLEN) Not Detected 01/22/20 12:17: POC Glucose 72 01/22/20 15:47: Hgb 7.2 L, Hct 23.9 L 01/22/20 16:26: POC Glucose 143 H 01/22/20 22:57: POC Glucose 250 H 01/23/20 06:15: WBC 6.5, RBC 2.19 L, Hgb 6.8 L, Hct 22.4 L, MCV 102.3 H, MCH 31.1, MCHC 30.4 L, RDW Std Deviation 52.1 H, RDW Coeff of Angela 14.0, Plt Count 177, MPV 10.8, Immature Gran % (Auto) 1.700 H, Neut % (Auto) 63.0, Lymph % (Auto) 18.4 L, Kent % (Auto) 12.6 H, Eos % (Auto) 3.8, Baso % (Auto) 0.5, Absolute Neuts (auto) 4.1, Absolute Lymphs (auto) 1.20, Nucleated RBC % 0 01/23/20 06:15: Sodium 128 L, Potassium 4.3, Chloride 93 L, Carbon Dioxide 28.0, Anion Gap 7, BUN 41 H, Creatinine 3.70 H, Estim Creat Clear Calc 14.49, Est GFR (MDRD) Af Amer 16 L, Est GFR (MDRD) Non-Af 13 L, BUN/Creatinine Ratio 11.1, Glucose 234 H, Calcium 8.3 L 01/23/20 06:39: POC Glucose 242 H 01/23/20 07:58: Blood Type O POSITIVE, Antibody Screen NEGATIVE, Crossmatch See Detail Current Medications Acetaminophen (Tylenol) 650 mg PO Q6H PRN PRN PRN Reason: Pain Score 1-10/Temp > 100.7 F Last Admin: 01/23/20 06:42 Dose: 650 mg Documented by: Amlodipine Besylate (Norvasc) 10 mg PO DAILY [facility] Last Admin: 01/23/20 07:49 Dose: 10 mg Documented by: Bupropion HCl (Wellbutrin Xl) 300 mg PO DAILY [facility] Last Admin: 01/23/20 07:51 Dose: 300 mg Documented by: Calcitriol (Rocaltrol) 0.25 mcg PO DAILY [facility] Last Admin: 01/23/20 07:50 Dose: 0.25 mcg Documented by: Calcium Acetate (Phoslo Gel Cap) 1,334 mg PO TIDCM [facility] Last Admin: 01/23/20 07:49 Dose: 1,334 mg Documented by: Carvedilol (Coreg) 6.25 mg PO BID [facility] Last Admin: 01/23/20 07:50 Dose: 6.25 mg Documented by: Dextrose (D50w Syringe) 0 gm IV X1 PRN; Protocol PRN Reason: Hypoglycemia Furosemide (Lasix) 80 mg PO DAILY [facility] Last Admin: 01/23/20 07:50 Dose: 80 mg Documented by: Gabapentin (Neurontin) 300 mg PO TID [facility] Last Admin: 01/23/20 06:42 Dose: 300 mg Documented by: Glucagon () 1 mg IM .X1 PRN PRN Reason: Hypoglycemia Insulin Glargine (Lantus ([facility])) 40 units SC DAILY [facility] Insulin Human Lispro (Humalog Kwikpen ([facility])) 0 unit SC ACHS [facility]; Protocol Last Admin: 01/23/20 06:43 Dose: 2 u Documented by: Insulin Human Lispro (Humalog Kwikpen ([facility])) 20 unit SC TIDAC [facility] Levothyroxine Sodium (Synthroid) 200 mcg PO DAILY@0600 [facility] Last Admin: 01/23/20 06:42 Dose: 200 mcg Documented by: Losartan Potassium (Cozaar) 50 mg PO DAILY [facility] Last Admin: 01/23/20 07:50 Dose: 50 mg Documented by: Nicotine (Nicoderm Cq ([facility])) 21 mg TRANSDERM. DAILY [facility] Last Admin: 01/23/20 07:50 Dose: 21 mg Documented by: Nicotine Polacrilex (Rugby Nicotine ([facility])) 2 mg PO Q2H PRN PRN PRN Reason: Nicotine Craving Nitroglycerin (Nitrostat) 0.4 mg SUBLINGUAL Q5M PRN PRN Reason: CARDIAC/CHEST PAIN Nystatin (Mycostatin Powder) 1 applic TOPICAL BID [facility]; Protocol Last Admin: 01/23/20 07:50 Dose: 1 applicatio Documented by: Ondansetron HCl (Zofran) 4 mg IV Q8H PRN PRN PRN Reason: NAUSEA/VOMITING Ondansetron HCl (Zofran Odt) 4 mg PO Q8H PRN PRN PRN Reason: NAUSEA Oxycodone HCl (Oxyir) 5 mg PO Q4H PRN PRN PRN Reason: Pain Score 4-10/10 Pantoprazole Sodium (Protonix) 40 mg PO DAILY [facility] Last Admin: 01/23/20 07:49 Dose: 40 mg Documented by: Sertraline HCl (Zoloft) 100 mg PO DAILY [facility] Last Admin: 01/23/20 07:49 Dose: 100 mg Documented by: Sodium Chloride () 10 - 40 ml IV UD PRN PRN Reason: SALINE FLUSH Last Admin: 01/20/20 09:15 Dose: 20 ml Documented by: Tizanidine HCl (Zanaflex) 2 mg PO TID PRN PRN PRN Reason: muscle relaxant Last Admin: 01/23/20 07:54 Dose: 2 mg Documented by: Home Medications: Medications to take at Discharge proMETHazine tablet [Phenergan tablet] 25 mg PO Q8H PRN PRN 05/14/13 Carvedilol 6.25 mg PO BID 08/13/19 Amlodipine [Norvasc] 10 mg PO DAILY 12/21/19 Bupropion HCl [Bupropion Xl] 300 mg PO DAILY 12/21/19 Calcitriol [Rocaltrol] 0.25 mcg PO DAILY 12/21/19 Calcium Acetate [Phoslo Gel Cap] 1,334 mg PO TIDCM 12/21/19 Levothyroxine Sodium [Synthroid] 200 mcg PO DAILY 12/21/19 Nitroglycerin [Nitrostat] 0.4 mg SL Q5M PRN 12/21/19 Furosemide [Lasix] 80 mg PO DAILY 01/19/20 Gabapentin [Neurontin] 300 mg PO TID 01/19/20 Losartan Potassium [Cozaar] 50 mg PO DAILY 01/19/20 Ondansetron HCl [Zofran] 4 mg PO Q8H PRN PRN 01/19/20 Sertraline HCl 100 mg PO DAILY 01/19/20 Tizanidine HCl [Zanaflex] 2 mg PO TID PRN PRN 01/19/20 Insulin Glargine [Lantus SoloStar Pen] 40 units SUBCUT QHS #0 01/23/20 Insulin Lispro [Humalog KwikPen] 20 unit SUBCUT TIDAC #0 01/23/20 Nicotine [Nicoderm Cq] 21 mg TRANSDERM. DAILY patch 01/23/20 Primary Care Physician: Iban Eldridge MD [Primary Care Provider] - Please follow up with your Primary Care Physician in: 1 to 2 weeks Please Follow Up With: Michael Max MD When: In 2 weeks. Patient has also severe anemia Medical Necessity - Tobacco Use Smoking Status: Current every day smoker Tobacco Use: Cigarettes Meaningful Use Info Meaningful Use Diagnoses (Choose all that apply): None applicable Inpatient E&M: 62381 [facility]
--- NOTE | 2020-01-23 11:18 | PCM.TXEXTCAR ---
- Diet 01/19/20 20:03 Diet: Renal - General Food consistency:: Regular Liquid Consistency:: Regular/Thin Dietary Modifications:: Consistent Carbohydrate - Routine Orders/Code Status Suppository Type: Dulcolax 10mg Suppository Frequency: Daily PRN Routine Lab Work: BMP - On days of dialysis Code Status: DNRCC-A - With no intubation - Wound(s) L middle finger Wound Type: old blister - Therapies Weight Bearing: Weight bearing as tolerated Extremity Affected:: Bilateral Lower Physical Therapy: Eval and Treat Occupational Therapy: Eval and Treat - Allergies/Procedures Done in Hospital Allergies/Adverse Reactions: Allergies codeine phosphate [From Tylenol-Codeine #3] Allergy (Verified 01/19/20 17:03) Swelling simvastatin [From Zocor] Allergy (Verified 01/19/20 17:03) Other - Type of Care/Length of Stay Estimated LOS: Convalescent Care Less Than 30 days Type of Care Needed: Skilled Rehab Potential: Good Prognosis: Good - Additional Orders/Day of Discharge Day of Discharge: 01/23/20 - Dietary and Speech Recommendations Dietitian Recommendations/Changes: Will change diet to Consistent CHO / Renal d/t pmhx - Follow Up Care Primary Care Physician: Iban Eldridge MD [Primary Care Provider] - Please follow up with your Primary Care Physician in: 1 to 2 weeks Please Follow Up With: Michael Max MD When: In 2 weeks. Patient has also severe anemia
[2020-01-23] MEDS: 0.9% Saline Lock 10 ML Syringe IV ×2 (11:31→15:32)
[2020-01-23] MEDS: oxyCODONE 5 MG Tablet PO ×2 (11:38→15:57)
[2020-01-23 12:00] LABS: Bedside Glucose 352 mg/dL (70-110)
[2020-01-23] MEDS: Insulin Lispro 100 UNIT/ML INSULN.PEN 20 UNIT SC (13:26)
--- NOTE | 2020-01-23 15:16 | CASEMGMT ---
Social Work Note SW received message from Feli at [facility] stating pre-cert has been obtained and pt is able to discharge. SW updated physician. ANAHY faxed completed discharge paperwork to [facility] including transfer to extended care facility, signed medication list, any scripts, negative COVID test, COVID screening tool and convalescent 7000. Original in SNF folder and copy on pt's chart. ANAHY spoke with RN, pt can transport via cot. SW placed a call to [facility] and arranged transportation via cot for 4:00pm. Transportation form completed and placed on SNF folder and copy on pt's chart. SW completed convalescent 7000 in [facility], original in SNF folder and copy on pt's chart. SW updated RN on transportation time. ANAHY placed a call to Feli at [facility] and updated her on transportation time. SW in to speak with pt and pt's markece Urvashi present in room. SW updated pt and Urvashi on approval for [facility], discharge today and transportation time. Pt and Urvashi state understanding. Urvashi asked about Palliative Care for pt. SW explained that this worker could make Palliative referral and then [facility]. Urvashi states pt was on Palliative before but it was in [place]. Pt agreeable to Palliative referral. ANAHY placed a call to [facility] and spoke with FLORI Middleton. Emi states [facility] and [facility] doesn't allow Palliative to see pt while they are at facility. Emi states it's a corporate thing for [facility] and [facility]. SW updated pt of this and encouraged pt to speak with SW at [facility] in regards to Palliative. Pt states understanding. ANAHY placed a call to Feli at [facility] and left message for Feli asking if they contract with a different Palliative Care company. SW waiting for call back. Plan: Discharge to [facility] skilled today [facility] transporting pt via cot at 4:00pm Genna CONLEY, MARICHUY
[2020-01-23 15:21] LABS: Hematocrit 25.6 % (37-47)
--- NOTE | 2020-01-23 15:54 | NURSING ---
report called to [facility]
== END 2020-01-23 17:25 | DRG 682 ==
LOC: ED 17:41 → MS3 01-20 07:07
PROVIDERS: Internal Medicine Nephrology; Admitting Provider Internal Medicine; Emergency Provider Emergency Medicine; PCP Family Medicine; Visit Provider Internal Medicine
DX: I12.0 Hypertensive chronic kidney disease with stage 5 chronic kidney disease or end stage renal disease (principal); N18.6 End stage renal disease; J44.9 Chronic obstructive pulmonary disease, unspecified; I25.2 Old myocardial infarction; R62.7 Adult failure to thrive; Z68.42 Body mass index [BMI] 45.0-49.9, adult; Z23 Encounter for immunization; D63.1 Anemia in chronic kidney disease; E03.9 Hypothyroidism, unspecified; E11.65 Type 2 diabetes mellitus with hyperglycemia; E87.1 Hypo-osmolality and hyponatremia; R06.89 Other abnormalities of breathing; R09.02 Hypoxemia; E11.22 Type 2 diabetes mellitus with diabetic chronic kidney disease; I25.10 Atherosclerotic heart disease of native coronary artery without angina pectoris; F32.9 Major depressive disorder, single episode, unspecified; M89.8X9 Other specified disorders of bone, unspecified site; F41.9 Anxiety disorder, unspecified; E66.01 Morbid (severe) obesity due to excess calories; G89.29 Other chronic pain; F17.210 Nicotine dependence, cigarettes, uncomplicated; E87.70 Fluid overload, unspecified; L89.890 Pressure ulcer of other site, unstageable; Z99.2 Dependence on renal dialysis; Z66 Do not resuscitate; Z79.899 Other long term (current) drug therapy; Z79.4 Long term (current) use of insulin; R94.31 Abnormal electrocardiogram [ECG] [EKG]
CPT/HCPCS: 36415; 36430; 36591; 71045; 80048; 80053; 80069; 80076; 82274; 82728; 82962; 83540; 83550; 83880; 84100; 84484; 85014; 85018; 85025; 86850; 86900; 86901; 86920; 86922; 87635; 90937; 93005; 93306; 96372; 96374; 96375; 97110; 97116; 97162; 97166; 97530; 97535; 97802; 99218; 99285; G0008; J7040; P9040; Q9957; 90686; A4216; C8929; G0257; G0378; J1940; Q5106; U0003

== ENCOUNTER 2020-02-05 12:57 | Outpatient (RCR) | payer MEDICARE, MEDICAID, SELFPAY | END 2020-02-17 23:59 | LOC: WC 12:57 | PROVIDERS: PCP Internal Medicine; Referring Provider Surgery; Visit Provider Surgery | DX: Z00.00 Encounter for general adult medical examination without abnormal findings (principal) ==

== ENCOUNTER 2020-08-28 12:07 | Observation (INO) | payer MEDICARE, MEDICAID, SELFPAY ==
[2020-08-28] VITALS (9 sets, daily range): BP systolic 140–187; BP diastolic 58–85; PULSE 77–84; RESP 16–20; TEMP 36.6–37.2; O2SAT 94–100; BMI 43.6; BMI 43.2
--- NOTE | 2020-08-28 12:35 | EKG12_ITS ---
Test Reason : COUGH Blood Pressure : / mmHG Vent. Rate : 083 BPM Atrial Rate : 083 BPM P-R Int : 182 ms QRS Dur : 108 ms QT Int : 384 ms P-R-T Axes : 057 006 083 degrees QTc Int : 451 ms Normal sinus rhythm Incomplete left bundle branch block Nonspecific T wave abnormality Abnormal ECG Confirmed by MARLENI SANTOS, RUSTAM ([id number]), editor house organ ALANNA FIELD ([id number]) on 09/02/2020 2:19:39 PM Referred By: CHERELLE Confirmed By:RUSTAM YEPEZ MD
--- NOTE | 2020-08-28 12:36 | EDS_ITS ---
HPI History of Present Illness Chief Complaint: Cough Informant: patient Onset/Context/Timing Onset: Days (3-4) Context: gradual and exertion Timing: Waxes and wanes Quality: Positive for Dyspnea on exertion and Orthopnea Current Severity: Mild Maximum Severity: Moderate Worsened by: Exertion and Lying flat Relieved by: Rest Associated Symptoms cough and green sputum; Negative for fever, chills or sweats Chest Pain: Positive for None Narrative Narrative: Patient has been getting dialysis for several months, states she mis sed both sessions this week, 1 on Wednesday and 1 today on Wednesday, she has become more edematous in her legs and has orthopnea. She is coughing up some sputum, no blood. She denies any symptoms of angina. No palpitations or lightheadedness. She states she had Covid, and subsequently then had the vaccine. She has been around no one that she knows of with Covid or any other respiratory illness. She states she lives close to [place] and gets dialyzed there. [facility] Medical History Breast cancer CAD (coronary artery disease) Chronic pain DM2 (diabetes mellitus, type 2) ESRD (end stage renal disease) HTN (hypertension) Hypothyroidism VTE (venous thromboembolism) Home Medications promethazine 25 mg PO Q8H PRN PRN 05/14/13 [History Last Taken Unknown] carvedilol 6.25 mg PO BID 08/13/19 [History Last Taken 12/20/19] amlodipine 10 mg PO DAILY 12/21/19 [History Last Taken 12/20/19] bupropion HCl 300 mg PO DAILY 12/21/19 [History Last Taken Unknown] calcitriol 0.25 mcg PO DAILY 12/21/19 [History Last Taken Unknown] calcium acetate(phosphat bind) 1,334 mg PO TIDCM 12/21/19 [History Last Taken 12/20/19] levothyroxine 200 mcg PO DAILY 12/21/19 [History Last Taken 12/20/19] nitroglycerin 0.4 mg SL Q5M PRN 12/21/19 [History Last Taken Unknown] furosemide 80 mg PO DAILY 01/19/20 [History Last Taken Unknown] gabapentin 300 mg PO TID 01/19/20 [History Last Taken Unknown] losartan 50 mg PO DAILY 01/19/20 [History Last Taken Unknown] ondansetron HCl 4 mg PO Q8H PRN PRN 01/19/20 [History Last Taken Unknown] sertraline 100 mg PO DAILY 01/19/20 [History Last Taken Unknown] tizanidine 2 mg PO TID PRN PRN 01/19/20 [History Last Taken Unknown] insulin glargine 40 units SUBCUT QHS #0 01/23/20 [Rx Last Taken Unknown] insulin lispro 20 unit SUBCUT TIDAC #0 01/23/20 [Rx Last Taken Unknown] nicotine 21 mg TRANSDERM. DAILY patch 01/23/20 [Rx Last Taken Unknown] Allergy/AdvReac Type Severity Reaction Status Date / Time codeine phosphate Allergy Swelling Verified 08/28/20 12:08 [From Tylenol-Codeine #3] simvastatin [From Zocor] Allergy Other Verified 08/28/20 12:08 Social History Smoking Status: Current every day smoker ROS ROS ED Constitutional Constitutional ED: Denies chills or fever(s) Eyes Eyes: Denies change in vision or diplopia ENT ENT ED: Denies rhinorrhea or sore throat Cardiovascular Cardiovascular: Reports leg edema and orthopnea; Denies chest pain or palpitations Respiratory/Chest Respiratory/Chest: Reports cough, dyspnea on exertion and orthopnea Gastrointestinal Gastrointestinal: Denies abdominal pain, diarrhea, nausea or vomiting Genitourinary Genitourinary ED: Denies dysuria or hematuria Musculoskeletal Musculoskeletal: Denies back pain or neck pain Integumentary Denies abscess or rash Neurologic Neurologic: Denies headache(s), paresthesias or weakness Psychiatric Psychiatric: Denies anxiety or suicidal thoughts EXAM Physical Exam Const Vital Signs: 08/28/20 12:07 08/28/20 12:08 Temperature 97.8 F Temperature Source Temporal Pulse Rate 77 Respiratory Rate 17 Respiratory Effort Short of Breath Respiratory Pattern Normal Blood Pressure 151/79 H Blood Pressure Mean 103 Pulse Ox 96 Oxygen Delivery Method Room Air Room Air Positive well nourished, well developed and obese Constitutional Narrative: Conversive in full sentences General Appearance ED: well developed and NAD Nutritional Appearance: obese HEENT Reports moist mucous membranes normocephalic and atraumatic Eyes PERRL and EOMs intact bilaterally Neck full ROM, no lymphadenopathy and supple Resp normal respiratory effort and clear to auscultation bilaterally Cardio regular rate, regular rhythm and no murmurs GI non-tender and non-distended Auscultation: normoactive bowel sounds Palpation: soft Back/Spine no CVA tenderness General Back: other FROM Extremity normal to inspection and no calf tenderness General Extremety ED: Negative for pulses abnormal or tenderness General Extremity: edema bilateral lower extremity Details: moderate (Symmetric); Negative for pulses abnormal Neuro oriented x3, CN's II-XII intact bilaterally and no sensory deficits noted Sensorium / Orientation: awake and alert Motor Exam: strength 5/5 throughout Skin no rashes or lesions noted and no wounds MDM MDM MDM Narrative Medical decision making narrative: Patient's work-up is consistent with fluid overload status given her missed dialysis sessions. Her potassium is just barely in the abnormal range of 5.2, I see no significant EKG changes related to this except for possible mild T wave peaking in some of the precordial leads only. We were able to determine that the patient goes to dialysis in [place] and sees Dr. Beck. At this time I think she is stable clinically. We spoke with the on-call internship coordinator as well as the outpatient dialysis center, they do not have any openings available today and they are not open tomorrow. Nephrology feels what is best is for her to get dialyzed soon as possible, as well as possibly a short dialysis session tomorrow prior to her normal 1 then on Wednesday. Since we will not be able to get her dialyzed today or tomorrow, he feels the best thing would be to admit her for dialysis since we cannot do it in the emergency department at this hospital. Discussed with hospitalist. Lab Data Attestation: I reviewed the patient's lab results. Labs: Laboratory Results - last 24 hr 08/28/20 08/28/20 12:40 12:40 WBC 6.4 RBC 2.84 L Hgb 9.5 L Hct 29.3 L MCV 103.2 H MCH 33.5 H MCHC 32.4 RDW Std Deviation 51.4 H RDW Coeff of Angela 13.5 Plt Count 185 MPV 10.9 Immature Gran % (Auto) 0.500 Neut % (Auto) 72.7 H Lymph % (Auto) 12.9 L [place] % (Auto) 9.2 Eos % (Auto) 4.4 Baso % (Auto) 0.3 Absolute Neuts (auto) 4.7 Absolute Lymphs (auto) 0.83 Nucleated RBC % 0 Sodium 130 L Potassium 5.2 H Chloride 100 Carbon Dioxide 23.0 Anion Gap 7 BUN 74 H Creatinine 4.25 H Estim Creat Clear Calc 12.46 Est GFR (MDRD) Af Amer 14 L Est GFR (MDRD) Non-Af 11 L BUN/Creatinine Ratio 17.4 Glucose 204 H Calcium 8.6 Troponin I < 0.015 Radiography Chest X-Ray - ED: 1 View, Read by ED Physician and CHF (Mild) Diagnostic Testing: Radiology Impression Chest X-Ray 08/28/20 13:15 IMPRESSION: Findings suggest a mild degree of right basilar atelectasis superimposed on a mild degree of CHF. Electronically Signed: Georges Lucas MD at 13:28 EDT , Service support , EKG Initial EKG: Attestation: I personally reviewed and interpreted this EKG as follows: Interpretation: Sinus Rhythm, No Acute Injury Pattern and LBBB (Incomplete) Comments: Slight anterior-septal T wave peaking Prior EKG tracings: available for review Prior: Unchanged Discharge Plan Dx/Rx/DC Orders Clinical Impression: Generalized edema due to fluid overload, ESRD on hemodialysis, Non-compliance with renal dialysis, Hyperkalemia, diminished renal excretion, CHF (congestive heart failure) Disposition Disposition: Acute Care [facility]
[2020-08-28 12:55] LABS: Absolute Lymphocyte Count 0.83 X10^3/uL (0.83-4.51); Absolute Neutrophil Count 4.7 X10^3/uL (2.0-7.7); Basophil# 0.02 X10^3/uL; Basophil% 0.3 % (0-1); Eosinophil# 0.28 X10^3/uL; Eosinophils% 4.4 % (0-5); Hematocrit 29.3 % (37-47); Hemoglobin 9.5 g/dL (12.0-15.0); Lymphocyte # 0.83 X10^3/ul (0.83-4.51); Lymphocyte % 12.9 % (19-41); Mean Corp Hgb Conc 32.4 g/dL (32-36); Mean Corpuscular Hgb 33.5 pg (27.0-32.0); Mean Corpuscular Volume 103.2 fL (81-99); Mean Platelet Vol. 10.9 fl (6.2-12.0); Monocyte# 0.59 X10^3/uL; Monocyte% 9.2 % (0-10); NRBC Flagged by Analyzer 0 % (0-5); Neutrophil # 4.66 X10^3/uL (2.7-7.7); Neutrophil % 72.7 % (47-70); Platelet Count 185 K/mm3 (150-450); RBC Distribution Width CV 13.5 % (11.6-14.6); RBC Distribution Width SD 51.4 fl (35.1-43.9); Red Blood Count 2.84 M/mm3 (4.2-5.4); White Blood Count 6.4 K/mm3 (4.4-11.0)
[2020-08-28 13:11] LABS: Anion Gap 7 (5-15); BUN 74 mg/dL (7-18); BUN/Creat Ratio 17.4 RATIO (10-20); Calcium,Total 8.6 mg/dL (8.5-10.1); Chloride 100 mmol/L (98-107); Creatinine, Serum 4.25 mg/dL (0.55-1.02); EST Glomerular Filtration Rate 11 mL/min (>60); Est Glom Filt Rate - Afr Amer 14 mL/min (>60); Estimated Creatinine Clearance 12.46 ml/min; Glucose 204 mg/dL (74-106); Potassium 5.2 mmol/L (3.5-5.1); Sodium Level 130 mmol/L (136-145)
--- NOTE | 2020-08-28 13:15 | RAD_ITS ---
STUDY: X-RAY CHEST REASON FOR EXAM: Female, 60 years old. Sob TECHNIQUE: Single AP portable view of the chest. COMPARISON: Comparison is made with prior study dated 01/19/2020. FINDINGS: A left-sided double-lumen catheter is seen with the tip at the junction of the superior vena cava and right atrium. Stable appearance of the surgical clips overlying the right axilla and the right thorax. There is elevation of the right hemidiaphragm. Mild degree of increased markings at the right lung base as well as in the right suprahilar region. Findings are suggestive of a right basilar atelectasis superimposed on mild CHF. There is no demonstrated pleural abnormality. There is borderline cardiomegaly. Normal mediastinum and [place]. Normal visualized pulmonary arteries. Normal visualized aortic arch and descending thoracic aorta. Normal visualized thoracic spine. Normal visualized ribs, clavicles, and shoulders. There is no demonstrated abnormality of the visualized soft tissue structures of the upper abdomen. RAD/Chest 1 View (Portable) IMPRESSION: Findings suggest a mild degree of right basilar atelectasis superimposed on a mild degree of CHF. Electronically Signed: Georges Lucas MD at 13:28 EDT , Service support ,
--- NOTE | 2020-08-28 13:27 | ED.RN ---
Pt states she does not know any of her medications but states she is on Percocet multiple times during day for chronic pain
--- NOTE | 2020-08-28 13:38 | ED.RN ---
PT REQUESTING PAIN MEDICATION. DR VILLARREAL AWARE. NO NEW MEDICATION ORDERS.PT STATES CHRONIC PAIN
--- NOTE | 2020-08-28 14:01 | ED.RN ---
PT MARCUS CONFIRMS PT AT ONE TIME TOOK NORCO--NOT PERCOCET--AND THAT WAS ONLY FOR 7 DAYS. MARCUS STATES SHE DOES NOT TAKE THAT ANYMORE
--- NOTE | 2020-08-28 14:14 | NURSING ---
PCU ABDIEL ESRD, FLUID OVERLOAD, CHF, HYPERKALEMIA
--- NOTE | 2020-08-28 14:20 | PCM.HP.STD ---
[facility] - [facility] General Date of Admission: 08/28/20 Chief Complaint: Cough. [facility] Narrative FÉLIX PARKINSON, is a 60 F with past medical history as mentioned above presented to the emergency room because of cough. Patient mentioned that her symptoms started around 3 days ago with cough, dry cough, associated with nasal congestion and stuffiness as well as mild shortness of breath. She denies fever or chills. For me, she denied orthopnea or PND. She missed her hemodialysis today but she was able to come to the emergency department. While in the ED, patient claimed that she has been taking Percocet for pain. When the nursing staff in the ED asked her again, she said she takes Vicodin. Her niece came in and she informed me that she was given prescription for Vicodin only for 1 week with 7 tablets but never been on narcotics chronically. In the emergency department, blood pressure was elevated, other vital signs were stable, she was afebrile and pulse ox was 96% on room air. Routine blood work was remarkable for hemoglobin of 9.5 g/dL which is chronic, sodium is 130, potassium is 5.2, BUN 74, creatinine is 4.25. EKG revealed normal sinus rhythm without evidence of acute ischemic changes. Troponin was negative. Chest x-ray revealed mild bilateral pulmonary vascular congestion. COVID-19 antigen came back negative. Patient is being admitted because of mild acute on chronic diastolic CHF and mild hypokalemia due to noncompliance and missing hemodialysis. FORMERLY [facility], [facility]–1983 Medical History (Updated 08/28/20 @ 14:[address] Natalie Laughlin MD) Breast cancer CAD (coronary artery disease) Chronic pain DM2 (diabetes mellitus, type 2) ESRD (end stage renal disease) HTN (hypertension) Hypothyroidism VTE (venous thromboembolism) Home Medications promethazine 25 mg PO Q8H PRN PRN 05/14/13 [History Last Taken Unknown] carvedilol 6.25 mg PO BID 08/13/19 [History Last Taken 08/27/20] bupropion HCl 300 mg PO QHS 12/21/19 [History Last Taken 08/27/20] calcium acetate(phosphat bind) 1,334 mg PO TIDCM 12/21/19 [History Last Taken 08/27/20] nitroglycerin 0.4 mg SL Q5M PRN 09/03/20 [History Last Taken Unknown] gabapentin 300 mg PO TID 01/19/20 [History Last Taken 08/27/20] losartan 50 mg PO DAILY 01/19/20 [History Last Taken 08/27/20] tizanidine 2 mg PO TID PRN PRN 01/19/20 [History Last Taken Unknown] insulin lispro 20 unit SUBCUT TIDAC #0 01/23/20 [Rx Last Taken 08/27/20] B complex with C 20-folic acid [Triphrocaps] 1 cap PO DAILY 08/28/20 [History Last Taken 08/27/20] acetaminophen [Tylenol 8 Hour] 650 mg PO Q6H 08/28/20 [History Last Taken 08/27/20] albuterol sulfate 2 puff INHALATION Q4H PRN 08/28/20 [History Last Taken 08/27/20] ergocalciferol (vitamin D2) 50,000 unit PO TU 08/28/20 [History Last Taken 08/27/20] furosemide 40 mg PO BID 08/28/20 [History Last Taken 08/27/20] guaifenesin [Adult Tussin Chest Congestion] 200 mg PO Q4H 08/28/20 [History Last Taken Unknown] insulin glargine 27 units SC QHS 08/28/20 [History Last Taken 08/27/20] letrozole 2.5 mg PO DAILY 08/28/20 [History Last Taken 08/27/20] loratadine 10 mg PO DAILY 08/28/20 [History Last Taken 08/27/20] magnesium oxide 400 mg PO DAILY 08/28/20 [History Last Taken 08/27/20] sennosides [senna] 17.2 mg PO BID 08/28/20 [History Last Taken 08/27/20] sertraline 25 mg PO QHS 08/28/20 [History Last Taken 08/27/20] Allergy/AdvReac Type Severity Reaction Status Date / Time codeine phosphate Allergy Swelling Verified 08/28/20 12:08 [From Tylenol-Codeine #3] simvastatin [From Zocor] Allergy Other Verified 08/28/20 12:08 no significant family history Surgical History (Updated 08/28/20 @ 14:[address] Natalie Laughlin MD) History of right mastectomy Social History Smoking Status: Current every day smoker ROS Constitutional Constitutional: Denies anorexia, chills, fatigue, fever(s) or malaise Eyes Eyes: Denies blurry vision, change in eye color, change in vision, double vision or eye pain ENT HEENT: Reports nasal congestion; Denies ear pain, epistaxis, headache(s), post nasal drip or sore throat Cardiovascular Cardiovascular: Reports edema; Denies chest pain, dyspnea on exertion, lightheadedness, orthopnea, palpitations, paroxysmal nocturnal dyspnea or syncope Respiratory/Chest Respiratory/Chest: Reports cough and shortness of breath with exertion; Denies dyspnea, hemoptysis, productive cough, shortness of breath at rest or wheezing Gastrointestinal Gastrointestinal: Denies abdominal pain, constipation, diarrhea, hematemesis, hematochezia, melena, nausea or vomiting Genitourinary Genitourinary: Denies burning urination, dysuria, hematuria, urinary hesitancy or urinary urgency Musculoskeletal Musculoskeletal: Denies arthralgias, back pain, joint pain, joint swelling, myalgias or neck pain Neurologic Neurologic: Denies confusion, dizziness, focal weakness, headache(s), numbness, paresthesias, seizures, tingling or tremor(s) Psychiatric Psychiatric: Denies anxiety, depression, homicidal ideation or suicidal ideation Endocrine Endocrinology: Denies change in body appearance, cold intolerance, heat intolerance, polydipsia or polyuria Hematologic/Lymphatic Hematologic/Lymphatic: Reports other; Denies easy bleeding, easy bruising or lymphadenopathy Allergic/Immunologic Allergic/Immunologic: Denies itchy eyes, rhinitis, throat swelling, tongue swelling, hives, urticaria or wheezing Vital Signs Vital Signs Vital Signs: 08/28/20 12:07 08/28/20 12:08 08/28/20 14:09 Temperature 97.8 F 97.9 F Temperature Source Temporal Temporal Pulse Rate 77 83 Respiratory Rate 17 18 Respiratory Effort Short of Breath Respiratory Pattern Normal Blood Pressure 151/79 H 187/83 H Blood Pressure Mean 103 117 Pulse Ox 96 97 Oxygen Delivery Method Room Air Room Air Room Air Physical Exam Const alert, oriented x3, no apparent distress and no limitations General Appearance: cooperative, comfortable and well kempt HEENT normocephalic, head/scalp atraumatic and moist oral mucous membranes Head and Scalp: normocephalic and atraumatic Eyes PERRL, EOMs intact bilaterally, conjunctivae normal and no scleral icterus General Eye: normal appearance of both eyes Periorbital: periorbital findings normal Neck no lymphadenopathy, supple, no meningeal signs, no JVD and no carotid bruits General: trachea midline Thyroid: thyroid normal Resp normal respiratory effort and normal air movement Resp Narrative: Diminished with sounds bilateral, very faint basal crackles, occasional rhonchi. Auscultation: crackles, rales, rhonchi and wheezes Cardio regular rate, regular rhythm, S1 normal heart sound, S2 normal heart sound, no murmurs and no JVD Peripheral Pulses: pulses 2+ throughout GI normal to inspection, nondistended, normoactive bowel sounds, soft to palpation, non-tender and non-distended; Negative for hepatosplenomegaly GI Narrative: Obese. Auscultation: normoactive bowel sounds Extremity normal to inspection and full ROM Extremity Narrative: Bilateral leg edema. Skin no rashes or lesions noted, no wounds and no petechiae Neuro oriented x3, CN's II-XII intact bilaterally and moves all extremities Sensorium / Orientation: alert Speech: speech normal Motor Exam: strength 5/5 throughout Psych mental status grossly normal, affect normal and denies hallucinations Lab / Micro Data Result Diagrams: 08/28/20 12:40 08/28/20 12:40 Labs: Laboratory Results - last 24 hr 08/28/20 08/28/20 12:40 12:40 WBC 6.4 RBC 2.84 L Hgb 9.5 L Hct 29.3 L MCV 103.2 H MCH 33.5 H MCHC 32.4 RDW Std Deviation 51.4 H RDW Coeff of Angela 13.5 Plt Count 185 MPV 10.9 Immature Gran % (Auto) 0.500 Neut % (Auto) 72.7 H Lymph % (Auto) 12.9 L [place] % (Auto) 9.2 Eos % (Auto) 4.4 Baso % (Auto) 0.3 Absolute Neuts (auto) 4.7 Absolute Lymphs (auto) 0.83 Nucleated RBC % 0 Sodium 130 L Potassium 5.2 H Chloride 100 Carbon Dioxide 23.0 Anion Gap 7 BUN 74 H Creatinine 4.25 H Estim Creat Clear Calc 12.46 Est GFR (MDRD) Af Amer 14 L Est GFR (MDRD) Non-Af 11 L BUN/Creatinine Ratio 17.4 Glucose 204 H Calcium 8.6 Troponin I < 0.015 Micro: Microbiology 08/28/20 13:00 SARS-CoV-2 Antigen (Rapid) - Final Interface Orders Radiology Impression Chest X-Ray 08/28/20 13:15 IMPRESSION: Findings suggest a mild degree of right basilar atelectasis superimposed on a mild degree of CHF. Electronically Signed: Georges Lucas MD at 13:28 EDT , Service support , Assessment & Plan Assessment/Plan (1) Acute on chronic diastolic CHF (congestive heart failure): (2) Non-compliance with renal dialysis: (3) Hyperkalemia, diminished renal excretion: (4) Hypertension: QUALIFIERS: Hypertension type: essential hypertension Qualified Code(s): I10 - Essential (primary) hypertension (5) Type 2 diabetes mellitus: QUALIFIERS: Diabetes mellitus complication status: with other specified complication Diabetes mellitus barrel bander insulin use: with jail use Qualified Code(s): E11.69 - Type 2 diabetes mellitus with other specified complication; Z79.4 - penitentiary (current) use of insulin (6) Hypothyroidism: QUALIFIERS: Hypothyroidism type: unspecified Qualified Code(s): E03.9 - Hypothyroidism, unspecified (7) ESRD on hemodialysis: PLAN: This is a 60 years old female patient presented to the emergency room because of cough, nasal congestion and mild shortness of breath, missed her hemodialysis today and she is being admitted for mild acute on chronic diastolic CHF and mild hyperkalemia. #1 mild acute on chronic diastolic CHF: Due to missed hemodialysis, patient is noncompliant. EKG revealed normal sinus rhythm, no acute changes. Troponin was negative. Chest x-ray reviewed. She is on room air, blood pressure slightly repeated, other vital signs are stable. Plan: Admit to PCU for observation, cardiac monitoring, nephrology consult, patient will need hemodialysis probably today, repeat CBC and BMP tomorrow morning, PT OT evaluation and treatment. #2 mild hyperkalemia: Potassium is 5.2, due to missed hemodialysis. No acute EKG changes. Plan: Kayexalate x1, nephrology consult, hemodialysis. #3 hyponatremia: Chronic, likely due to hypovolemia. Sodium is 130, stable at baseline. #4 ESRD on hemodialysis: Plan as above, nephrology consult, hemodialysis. #5 hypertension: Blood pressure was elevated in the ED, continue Coreg, Lasix and losartan, start IV hydralazine as needed. #6 type 2 diabetes mellitus: ADA diet, Accu-Cheks, sliding scale, continue glargine and lispro insulin. #7 chronic anemia: Due to anemia of chronic disease, hemoglobin and hematocrit are stable at baseline. #8 DVT prophylaxis: Subcu Lovenox. This note was generated with [employer] dictation software. It may contain incorrect words, spelling, and punctuation that were not noted in checking the note before signing. Visit Charges OBSV E&M: 91263 Initial observation care L3
[2020-08-28] MEDS: Acetaminophen 325 MG Tablet 650 MG PO (18:22)
[2020-08-28] MEDS: Insulin Lispro 100 UNIT/ML INSULN.PEN 20 UNIT SC (18:24)
[2020-08-28 18:26] LABS: Bedside Glucose 104 mg/dL (70-110)
[2020-08-28] MEDS: guaiFENesin 10 ML UDC (200MG/10ML) PO ×2 (18:26→23:33)
[2020-08-28] MEDS: Furosemide 40 MG Tablet PO (18:27)
[2020-08-28] MEDS: Calcium Acetate 667 MG Capsule 1334 MG PO (18:27)
[2020-08-28] MEDS: Heparin Injection (Vial) 5,000 UNIT/ML VIAL 5000 UNIT SC (19:01)
[2020-08-28] MEDS: Heparin 10,000 UNITS/10 ML Vial IV (19:05)
[2020-08-28] MEDS: Carvedilol 6.25 MG Tablet PO (21:32)
[2020-08-28] MEDS: buPROPion (XL) 300 MG TABLET.XL PO (21:32)
[2020-08-28] MEDS: Sertraline 50 MG Tablet 25 MG PO (21:32)
[2020-08-28] MEDS: Gabapentin 300 MG Capsule PO (21:32)
[2020-08-28] MEDS: tiZANidine HCl 2 MG Tablet PO (21:32)
[2020-08-28 23:05] LABS: Potassium 4.8 mmol/L (3.5-5.1)
--- NOTE | 2020-08-28 23:32 | NURSING ---
due to computer down time medications were given at 2131 and verified with Emi Spring RN.
[2020-08-28 23:40] LABS: Bedside Glucose 130 mg/dL (70-110)
[2020-08-29] VITALS (11 sets, daily range): BP systolic 130–153; BP diastolic 55–66; PULSE 71–92; RESP 16–18; TEMP 35.9–36.9; O2SAT 93–100
[2020-08-29] MEDS: guaiFENesin 10 ML UDC (200MG/10ML) PO ×5 (05:36→22:22)
[2020-08-29] MEDS: Senna/Docusate Sodium 1 Tablet 2 TABLET PO (05:37)
[2020-08-29] MEDS: Gabapentin 300 MG Capsule PO ×3 (05:37→20:44)
[2020-08-29] MEDS: Nystatin Powder 15gm Bottle 1 APPLIC TOPICAL ×3 (05:45→20:46)
[2020-08-29 06:11] LABS: Bedside Glucose 88 mg/dL (70-110)
[2020-08-29 06:32] LABS: Absolute Lymphocyte Count 1.08 X10^3/uL (0.83-4.51); Basophil# 0.03 X10^3/uL; Basophil% 0.4 % (0-1); Eosinophil# 0.33 X10^3/uL; Eosinophils% 4.6 % (0-5); Hematocrit 29.1 % (37-47); Hemoglobin 9.5 g/dL (12.0-15.0); Lymphocyte # 1.08 X10^3/ul (0.83-4.51); Lymphocyte % 14.9 % (19-41); Mean Corp Hgb Conc 32.6 g/dL (32-36); Mean Corpuscular Hgb 33.3 pg (27.0-32.0); Mean Corpuscular Volume 102.1 fL (81-99); Mean Platelet Vol. 10.6 fl (6.2-12.0); Monocyte# 0.82 X10^3/uL; Monocyte% 11.3 % (0-10); NRBC Flagged by Analyzer 0 % (0-5); Neutrophil # 4.96 X10^3/uL (2.7-7.7); Neutrophil % 68.4 % (47-70); Platelet Count 204 K/mm3 (150-450); RBC Distribution Width CV 13.5 % (11.6-14.6); RBC Distribution Width SD 50.8 fl (35.1-43.9); Red Blood Count 2.85 M/mm3 (4.2-5.4); White Blood Count 7.3 K/mm3 (4.4-11.0)
[2020-08-29 07:19] LABS: Anion Gap 7 (5-15); BUN 59 mg/dL (7-18); BUN/Creat Ratio 15.6 RATIO (10-20); Calcium,Total 8.3 mg/dL (8.5-10.1); Chloride 100 mmol/L (98-107); Creatinine, Serum 3.77 mg/dL (0.55-1.02); EST Glomerular Filtration Rate 13 mL/min (>60); Est Glom Filt Rate - Afr Amer 16 mL/min (>60); Estimated Creatinine Clearance 15.23 ml/min; Glucose 61 mg/dL (74-106); Potassium 4.3 mmol/L (3.5-5.1); Sodium Level 132 mmol/L (136-145)
[2020-08-29] MEDS: Insulin Lispro 100 UNIT/ML INSULN.PEN 20 UNIT SC (09:01)
[2020-08-29] MEDS: Calcium Acetate 667 MG Capsule 1334 MG PO ×3 (09:12→18:33)
[2020-08-29] MEDS: Magnesium Chloride 64 MG Delay Rel.Tablet 128 MG PO (09:12)
[2020-08-29] MEDS: Loratadine 10 MG Tablet PO (09:12)
[2020-08-29] MEDS: Heparin 10,000 UNITS/10 ML Vial 2000 UNITS IV (11:30)
[2020-08-29 12:21] LABS: Bedside Glucose 73 mg/dL (70-110)
--- NOTE | 2020-08-29 14:37 | PCM.CONS.R ---
Assessment & Plan Assessment/Plan (1) ESRD on hemodialysis: PLAN: Had dialysis yesterday also today so far removed 4.7 L and almost done with dialysis. If she is not discharged today we will do dialysis again tomorrow otherwise she was strongly advised to present to her dialysis center in the morning tomorrow as scheduled. Seen on dialysis tolerating well. (2) Hypertension: QUALIFIERS: Hypertension type: unspecified Qualified Code(s): I10 - Essential (primary) hypertension PLAN: Resume home meds reevaluate after dialysis. (3) Edema due to hypervolemia: PLAN: Salt and fluid restriction reinforced. UF as tolerated with dialysis. (4) Anemia: QUALIFIERS: Anemia type: due to chronic kidney disease Chronic kidney disease stage: on chronic dialysis Qualified Code(s): N18.6 - End stage renal disease; D63.1 - Anemia in chronic kidney disease; Z99.2 - Dependence on renal dialysis PLAN: We will start KANDI if prolonged hospital stay. (5) Secondary renal hyperparathyroidism: PLAN: Resume binders monitor calcium and phosphorus. HPI Consult Data Date of Consult: 08/29/20 HPI Narrative HPI Narrative: FÉLIX PARKINSON, is a 60 F with past medical history as below who presents with cough and wheezing but no fever no chills and was found to be fluid overloaded and she was admitted. The cough was dry and she had some nasal congestion and stuffiness. Denies shortness of breath on admission. No orthopnea no PND. She missed dialysis on Wednesday her last dialysis was on Wednesday. Her potassium was 5.2 and she underwent brief dialysis yesterday because of pulmonary vascular congestion. COVID-19 antigen was negative. She denies discharge or pain at the dialysis catheter site no headache no abdominal pain no nausea no vomiting no chest pain. She has no other complaints. Review of systems is otherwise negative unless noted in the HPI. FORMERLY [facility] Medical History (Updated 08/29/20 @ 14:[address] Rock Alejandro MD) Breast cancer CAD (coronary artery disease) Chronic pain DM2 (diabetes mellitus, type 2) ESRD (end stage renal disease) HTN (hypertension) Hypothyroidism VTE (venous thromboembolism) Home Medications promethazine 25 mg PO Q8H PRN PRN 05/14/13 [History Last Taken Unknown] carvedilol 6.25 mg PO BID 08/13/19 [History Last Taken 08/27/20] bupropion HCl 300 mg PO QHS 12/21/19 [History Last Taken 08/27/20] calcium acetate(phosphat bind) 1,334 mg PO TIDCM 12/21/19 [History Last Taken 08/27/20] nitroglycerin 0.4 mg SL Q5M PRN 12/21/19 [History Last Taken Unknown] gabapentin 300 mg PO TID 01/19/20 [History Last Taken 08/27/20] losartan 50 mg PO DAILY 01/19/20 [History Last Taken 08/27/20] tizanidine 2 mg PO TID PRN PRN 01/19/20 [History Last Taken Unknown] insulin lispro 20 unit SUBCUT TIDAC #0 01/23/20 [Rx Last Taken 08/27/20] B complex with C 20-folic acid [Triphrocaps] 1 cap PO DAILY 08/28/20 [History Last Taken 08/27/20] acetaminophen [Tylenol 8 Hour] 650 mg PO Q6H 08/28/20 [History Last Taken 08/27/20] albuterol sulfate 2 puff INHALATION Q4H PRN 08/28/20 [History Last Taken 08/27/20] ergocalciferol (vitamin D2) 50,000 unit PO TU 08/28/20 [History Last Taken 08/27/20] furosemide 40 mg PO BID 08/28/20 [History Last Taken 08/27/20] guaifenesin [Adult Tussin Chest Congestion] 200 mg PO Q4H 08/28/20 [History Last Taken Unknown] insulin glargine 27 units SC QHS 08/28/20 [History Last Taken 08/27/20] letrozole 2.5 mg PO DAILY 08/28/20 [History Last Taken 08/27/20] loratadine 10 mg PO DAILY 08/28/20 [History Last Taken 08/27/20] magnesium oxide 400 mg PO DAILY 08/28/20 [History Last Taken 08/27/20] sennosides [senna] 17.2 mg PO BID 08/28/20 [History Last Taken 08/27/20] sertraline 25 mg PO QHS 08/28/20 [History Last Taken 08/27/20] Allergy/AdvReac Type Severity Reaction Status Date / Time codeine phosphate Allergy Swelling Verified 08/28/20 12:08 [From Tylenol-Codeine #3] simvastatin [From Zocor] Allergy Other Verified 08/28/20 12:08 Surgical History (Updated 08/28/20 @ 14:[address] Natalie Laughlin MD) History of right mastectomy Social History Smoking Status: Current every day smoker Physical Exam Const alert and no apparent distress General Appearance: comfortable HEENT normocephalic HEENT Narrative: atraumatic Neck Neck Narrative: Left IJ tunneled dialysis catheter General: normal visual inspection and trachea midline Resp normal respiratory effort and clear to auscultation bilaterally Cardio regular rate, regular rhythm, S1 normal heart sound and S2 normal heart sound GI soft to palpation and non-tender GI Narrative: Obese Extremity Extremity Narrative: Bilateral lower extremity edema pitting Neuro Sensorium / Orientation: awake and alert Lab / Micro Data Result Diagrams: 08/29/20 06:05 08/29/20 06:05 Labs: Laboratory Results - last 24 hr 08/28/20 08/28/20 08/28/20 18:18 22:40 23:26 WBC RBC Hgb Hct MCV MCH MCHC RDW Std Deviation RDW Coeff of Angela Plt Count MPV Immature Gran % (Auto) Neut % (Auto) Lymph % (Auto) [place] % (Auto) Eos % (Auto) Baso % (Auto) Absolute Neuts (auto) Absolute Lymphs (auto) Nucleated RBC % Sodium Potassium 4.8 Chloride Carbon Dioxide Anion Gap BUN Creatinine Estim Creat Clear Calc Est GFR (MDRD) Af Amer Est GFR (MDRD) Non-Af BUN/Creatinine Ratio Glucose Calcium POC Glucose 104 130 H 08/29/20 08/29/20 08/29/20 06:05 06:05 06:06 WBC 7.3 RBC 2.85 L Hgb 9.5 L Hct 29.1 L MCV 102.1 H MCH 33.3 H MCHC 32.6 RDW Std Deviation 50.8 H RDW Coeff of Angela 13.5 Plt Count 204 MPV 10.6 Immature Gran % (Auto) 0.400 Neut % (Auto) 68.4 Lymph % (Auto) 14.9 L [place] % (Auto) 11.3 H Eos % (Auto) 4.6 Baso % (Auto) 0.4 Absolute Neuts (auto) 5.0 Absolute Lymphs (auto) 1.08 Nucleated RBC % 0 Sodium 132 L Potassium 4.3 Chloride 100 Carbon Dioxide 25.0 Anion Gap 7 BUN 59 H Creatinine 3.77 H Estim Creat Clear Calc 15.23 Est GFR (MDRD) Af Amer 16 L Est GFR (MDRD) Non-Af 13 L BUN/Creatinine Ratio 15.6 Glucose 61 L Calcium 8.3 L POC Glucose 88 08/29/20 12:12 WBC RBC Hgb Hct MCV MCH MCHC RDW Std Deviation RDW Coeff of Angela Plt Count MPV Immature Gran % (Auto) Neut % (Auto) Lymph % (Auto) [place] % (Auto) Eos % (Auto) Baso % (Auto) Absolute Neuts (auto) Absolute Lymphs (auto) Nucleated RBC % Sodium Potassium Chloride Carbon Dioxide Anion Gap BUN Creatinine Estim Creat Clear Calc Est GFR (MDRD) Af Amer Est GFR (MDRD) Non-Af BUN/Creatinine Ratio Glucose Calcium POC Glucose 73 Micro: Microbiology 08/28/20 13:00 SARS-CoV-2 Antigen (Rapid) - Final Interface Orders
[2020-08-29] MEDS: Heparin 10,000 UNITS/10 ML Vial 3900 UNITS IV (15:10)
--- NOTE | 2020-08-29 15:15 | DIALYSIS ---
Hemodialysis x 4 hours. -4700ml off. CVC closed with heparin to each lumen fill volume. tolerated very well. stable t/o . Report from/to Roney RUBY.
[2020-08-29] MEDS: Furosemide 40 MG Tablet PO ×2 (16:36→18:33)
[2020-08-29] MEDS: Losartan Potassium 50 MG Tablet PO (16:36)
[2020-08-29] MEDS: Carvedilol 6.25 MG Tablet PO ×2 (16:37→20:45)
[2020-08-29] MEDS: Heparin Injection (Vial) 5,000 UNIT/ML VIAL 5000 UNIT SC ×2 (16:37→20:45)
[2020-08-29 16:51] LABS: Bedside Glucose 140 mg/dL (70-110)
--- NOTE | 2020-08-29 17:32 | CHAPLAIN ---
Type of Pastoral Visit _x__ Initial Visit ___ Follow-up Visit ___ On-call Visit ___ General Patient Visit ___ Spiritual Assessment ___ Family Conference ___ Bereavement ___ Rapid Response ___ Code Blue ___ Other (describe below) Pastoral Care Referral From _x__ Patient ___ Family ___ Nurse ___ Physician ___ Manager Of Sustainability ___ Radiology Technologist ___ Other (describe below) Sacrament/Intervention ___ Active listening ___ Anointing ___ Church ___ Bereavement ___ Communion ___ Sugey exploration ___ ___ Life review ___ Prayer ___ Reconciliation ___ Sacrament of Sick _x__ Supportive presence ___ Wedding ___ Other (describe below) Pastoral Comments patient was just finishing her dialysis treatment; pt states that she is doing fine and did not need further support at this time
--- NOTE | 2020-08-29 18:28 | PCM.PN.HOSP ---
Subjective Subjective Patient was seen and examined. She had dialysis today and more than 4 L of fluid was taken off. Objective Data Objective Data Vital Signs: Vital Signs Temp Pulse Resp BP Pulse Ox 96.7 F L 91 16 149/66 H 96 08/29/20 15:30 08/29/20 15:30 08/29/20 15:30 08/29/20 15:30 08/29/20 15:30 Oxygen Delivery Method Room Air Weight: 118.2 kg Body Mass Index (BMI) 43.2 Intake & Output: Intake and Output for Last 24 Hours 08/27/20 08/28/20 08/29/20 23:59 23:59 23:59 Intake Total 200 / 500 900 / 900 Output Total 3600 / 4000 5100 / 5100 Balance -3400 / -3500 -4200 / -4200 Lab / Micro Data Result Diagrams: 08/29/20 06:05 08/29/20 06:05 Labs: Laboratory Results - last 24 hr 08/28/20 08/28/20 08/29/20 22:40 23:26 06:05 WBC 7.3 RBC 2.85 L Hgb 9.5 L Hct 29.1 L MCV 102.1 H MCH 33.3 H MCHC 32.6 RDW Std Deviation 50.8 H RDW Coeff of Angela 13.5 Plt Count 204 MPV 10.6 Immature Gran % (Auto) 0.400 Neut % (Auto) 68.4 Lymph % (Auto) 14.9 L [place] % (Auto) 11.3 H Eos % (Auto) 4.6 Baso % (Auto) 0.4 Absolute Neuts (auto) 5.0 Absolute Lymphs (auto) 1.08 Nucleated RBC % 0 Sodium Potassium 4.8 Chloride Carbon Dioxide Anion Gap BUN Creatinine Estim Creat Clear Calc Est GFR (MDRD) Af Amer Est GFR (MDRD) Non-Af BUN/Creatinine Ratio Glucose Calcium POC Glucose 130 H 08/29/20 08/29/20 08/29/20 06:05 06:06 12:12 WBC RBC Hgb Hct MCV MCH MCHC RDW Std Deviation RDW Coeff of Angela Plt Count MPV Immature Gran % (Auto) Neut % (Auto) Lymph % (Auto) [place] % (Auto) Eos % (Auto) Baso % (Auto) Absolute Neuts (auto) Absolute Lymphs (auto) Nucleated RBC % Sodium 132 L Potassium 4.3 Chloride 100 Carbon Dioxide 25.0 Anion Gap 7 BUN 59 H Creatinine 3.77 H Estim Creat Clear Calc 15.23 Est GFR (MDRD) Af Amer 16 L Est GFR (MDRD) Non-Af 13 L BUN/Creatinine Ratio 15.6 Glucose 61 L Calcium 8.3 L POC Glucose 88 73 08/29/20 16:45 WBC RBC Hgb Hct MCV MCH MCHC RDW Std Deviation RDW Coeff of Angela Plt Count MPV Immature Gran % (Auto) Neut % (Auto) Lymph % (Auto) [place] % (Auto) Eos % (Auto) Baso % (Auto) Absolute Neuts (auto) Absolute Lymphs (auto) Nucleated RBC % Sodium Potassium Chloride Carbon Dioxide Anion Gap BUN Creatinine Estim Creat Clear Calc Est GFR (MDRD) Af Amer Est GFR (MDRD) Non-Af BUN/Creatinine Ratio Glucose Calcium POC Glucose 140 H Micro: Microbiology 08/28/20 13:00 Interface Orders SARS-CoV-2 Antigen (Rapid) - Final Physical Exam Const alert, oriented x3, no apparent distress and no limitations General Appearance: cooperative, comfortable and well kempt HEENT normocephalic, head/scalp atraumatic and moist oral mucous membranes Eyes PERRL, EOMs intact bilaterally, conjunctivae normal and no scleral icterus General Eye: normal appearance of both eyes Periorbital: periorbital findings normal Neck no lymphadenopathy, supple, no meningeal signs, no JVD and no carotid bruits General: trachea midline Thyroid: thyroid normal Resp normal respiratory effort and normal air movement Resp Narrative: Diminished with sounds bilateral, very faint basal crackles, occasional rhonchi. Auscultation: crackles, rales, rhonchi and wheezes Cardio regular rate, regular rhythm, S1 normal heart sound, S2 normal heart sound, no murmurs and no JVD Peripheral Pulses: pulses 2+ throughout GI normal to inspection, nondistended, normoactive bowel sounds, soft to palpation, non-tender and non-distended; Negative for hepatosplenomegaly GI Narrative: Obese. Auscultation: normoactive bowel sounds Extremity normal to inspection and full ROM Extremity Narrative: Bilateral leg edema. Skin no rashes or lesions noted, no wounds and no petechiae Neuro oriented x3, CN's II-XII intact bilaterally and moves all extremities Sensorium / Orientation: alert Speech: speech normal Motor Exam: strength 5/5 throughout Psych mental status grossly normal, affect normal and denies hallucinations Assessment & Plan Assessment/Plan (1) Acute on chronic diastolic CHF (congestive heart failure): (2) Non-compliance with renal dialysis: (3) Hyperkalemia, diminished renal excretion: (4) Hypertension: QUALIFIERS: Hypertension type: unspecified Qualified Code(s): I10 - Essential (primary) hypertension (5) Type 2 diabetes mellitus: QUALIFIERS: Diabetes mellitus alf insulin use: with remote computer terminal operator use Diabetes mellitus complication status: with other specified complication Qualified Code(s): E11.69 - Type 2 diabetes mellitus with other specified complication; Z79.4 - [facility] (current) use of insulin (6) Hypothyroidism: QUALIFIERS: Hypothyroidism type: unspecified Qualified Code(s): E03.9 - Hypothyroidism, unspecified (7) ESRD on hemodialysis: PLAN: 1. Acute on chronic diastolic CHF secondary to missed hemodialysis, noncompliance Admitting EKG revealed normal sinus rhythm, no acute changes. Troponin was negative. Chest x-ray unremarkable Patient had fluid removal at dialysis, will continue with strict I's and O's, fluid restriction, daily weights, low-salt diet 2. Hyperkalemia, : Potassium is 5.2, due to missed hemodialysis. No acute EKG changes. Plan: Kayexalate x1, nephrology consult, hemodialysis. 3. Hyponatremia, chronic, nephrology consulted, repeat blood work tomorrow 4. ESRD on hemodialysis, nephrology consulted, patient will get her usual dialysis tomorrow 6. Hypertension, BP is better controlled, Continue Coreg, Lasix and losartan, IV hydralazine as needed. 7. Rest of chronic medical conditions are stable -including type II DM, anemia of CKD, which complicates her overall care Continue to monitor blood sugars, repeat lab work in a.m. Visit Charges Inpatient E&M: 27150 Subs Hosp L2
[2020-08-29] MEDS: buPROPion (XL) 300 MG TABLET.XL PO (20:47)
[2020-08-29] MEDS: Sertraline 50 MG Tablet 25 MG PO (20:47)
[2020-08-29] MEDS: Glucerna Shake 120 ML LIQUID PO (20:53)
[2020-08-29 21:01] LABS: Bedside Glucose 102 mg/dL (70-110)
[2020-08-30] VITALS (11 sets, daily range): BP systolic 132–149; BP diastolic 51–70; PULSE 74–88; RESP 15–18; TEMP 36.3–37.1; O2SAT 92–100
[2020-08-30] MEDS: guaiFENesin 10 ML UDC (200MG/10ML) PO ×5 (03:01→22:24)
[2020-08-30] MEDS: Gabapentin 300 MG Capsule PO ×3 (06:21→22:25)
[2020-08-30] MEDS: Nystatin Powder 15gm Bottle 1 APPLIC TOPICAL ×3 (06:21→22:30)
[2020-08-30 08:21] LABS: Bedside Glucose 112 mg/dL (70-110)
--- NOTE | 2020-08-30 09:17 | CASEMGMT ---
Late entry for 08.29.20 at 1513 FLORI YU in to discuss LOWRY form with patient. RN GIGI explained LOWRY form, patient voiced understanding. Pt signed form and filed in chart. Pt provided with a copy of signed LOWRY form. Pt states she has Dialysis in [place] at [facility] on // at 10am. Dialysis nurse in room who confirmed this info. Plan for pt to be dialyzed again tomorrow. Patient had no further questions or concerns at this time.
--- NOTE | 2020-08-30 09:55 | PCM.PN.REN ---
Subjective Subjective seen while on HD today. No worsening breathing. no N/V Objective Data Objective Data Vital Signs: Vital Signs Temp Pulse Resp BP Pulse Ox 98.3 F 80 18 142/59 H 98 08/30/20 02:42 08/30/20 07:07 08/30/20 02:42 08/30/20 02:42 08/30/20 07:31 Oxygen Delivery Method Room Air Weight: 118.2 kg Body Mass Index (BMI) 43.2 Intake & Output: Intake and Output for Last 24 Hours 08/28/20 08/29/20 08/30/20 23:59 23:59 23:59 Intake Total 200 / 500 1400 / 1400 300 / 300 Output Total 3600 / 4000 5100 / 5100 5100 / 5100 Balance -3400 / -3500 -3700 / -3700 -4800 / -4800 Lab / Micro Data Result Diagrams: 08/29/20 06:05 08/29/20 06:05 Labs: Laboratory Results - last 24 hr 08/29/20 08/29/20 08/29/20 12:12 16:45 20:40 POC Glucose 73 140 H 102 08/30/20 08:15 POC Glucose 112 H Micro: Microbiology 08/28/20 13:00 Interface Orders SARS-CoV-2 Antigen (Rapid) - Final Physical Exam Const alert and no apparent distress General Appearance: comfortable HEENT normocephalic Neck Neck Narrative: Left IJ tunneled dialysis catheter General: normal visual inspection and trachea midline Resp normal respiratory effort and clear to auscultation bilaterally Cardio regular rate, regular rhythm, S1 normal heart sound and S2 normal heart sound GI soft to palpation and non-tender GI Narrative: Obese Extremity Extremity Narrative: Bilateral lower extremity edema pitting Neuro Sensorium / Orientation: awake and alert Assessment & Plan Assessment/Plan (1) ESRD on hemodialysis: PLAN: seen during HD session today : BQ 400 DQ 600 UF 4L Continue MWF HD schedule. (2) Hypertension: QUALIFIERS: Hypertension type: unspecified Qualified Code(s): I10 - Essential (primary) hypertension PLAN: well controlled.continue same BP meds and UF 4 L today (3) Edema due to hypervolemia: PLAN: Salt and fluid restriction reinforced. UF as tolerated with dialysis. (4) Anemia: QUALIFIERS: Anemia type: due to chronic kidney disease Chronic kidney disease stage: on chronic dialysis Qualified Code(s): N18.6 - End stage renal disease; D63.1 - Anemia in chronic kidney disease; Z99.2 - Dependence on renal dialysis PLAN: We will start KANDI if prolonged hospital stay. (5) Secondary renal hyperparathyroidism: PLAN: On Ca acetate . Monitor P and Ca
--- NOTE | 2020-08-30 11:36 | PCM.DC ---
Discharge Instructions Diet Discharge Diet: Carb Control Diet and Renal Diet Activity Discharge Activity: Return to Normal Activity Follow Up Care Test Results: Test results from this visit will be discussed in further detail at your follow-up appointment, if applicable. Discharge Plan Admission Admit Date/Time: 08/28/20 14:18 Primary Reason for Your Visit: Acute on chronic diastolic CHF Attending Provider: Rashmi Bauer Primary Care Provider: Jase aGrcia Consulting Providers: Dhara Mallory ; Rock Alejandro ; Michael Max ; Maicol Domínguez ; Esthela Street ; Bryan Power ; Thai Shankar ; Keesha Donald Instructions Additional Instructions / Restrictions: Continue with your medications as prescribed. Follow-up with dialysis as scheduled. Follow-up with your primary care doctor and fraud manager as scheduled. Discharge Orders/Prescriptions Prescriptions: Continued promethazine 25 MG tablet 25 mg PO Q8H PRN PRN (Reason: Nausea) RF: 0 carvedilol 6.25 MG tablet 6.25 mg PO BID RF: 0 nitroglycerin 0.4 MG tablet, sublingual 0.4 mg SL Q5M PRN (Reason: CHEST PAIN) RF: 0 calcium acetate(phosphat bind) 667 MG capsule 1,334 mg PO TIDCM RF: 0 bupropion HCl 300 MG tablet extended release 24 hr 300 mg PO QHS RF: 0 losartan 50 MG tablet 50 mg PO DAILY RF: 0 gabapentin 300 MG capsule 300 mg PO TID RF: 0 tizanidine 2 MG capsule 2 mg PO TID PRN PRN (Reason: muscle relaxant) RF: 0 insulin lispro 100 UNIT/ML insulin pen 20 unit subcut TIDAC Qty: 0 RF: 0 furosemide 40 mg tablet 40 mg PO BID RF: 0 sennosides [senna] 8.6 mg tablet 17.2 mg PO BID RF: 0 guaifenesin [Adult Tussin Chest Congestion] 100 mg/5 mL liquid 200 mg PO Q4H RF: 0 acetaminophen [Tylenol 8 Hour] 650 mg Tablet Extended Release 650 mg PO Q6H RF: 0 magnesium oxide 400 mg (241.3 mg magnesium) tablet 400 mg PO DAILY RF: 0 sertraline 25 mg tablet 25 mg PO QHS RF: 0 ergocalciferol (vitamin D2) 1,250 mcg (50,000 unit) capsule 50,000 unit PO RF: 0 Triphrocaps 1 mg capsule 1 cap PO DAILY RF: 0 letrozole 2.5 mg tablet 2.5 mg PO DAILY RF: 0 albuterol sulfate 90 mcg/actuation HFA aerosol inhaler 2 puff INHALATION Q4H PRN (Reason: sob) RF: 0 loratadine 10 mg tablet 10 mg PO DAILY RF: 0 insulin glargine 100 UNITS/ML insulin pen 27 units SC QHS RF: 0 Referrals / Follow Up: Jase Garcia MD [Primary Care Provider] - Within 2 Weeks Disposition Disposition (needs filled in before D/C Order can be placed): Home, self care
[2020-08-30 11:41] LABS: Bedside Glucose 151 mg/dL (70-110)
--- NOTE | 2020-08-30 11:41 | PCM.DC.SUM ---
Providers Date of Admission: 08/28/20 Primary Care Physician: Dr. Jase Garcia MD Consultations 08/28/20 15:17 Consult: Nephrology Routine Consulting Provider: [facility] Reason for Consult: ESRD on dialysis EMERGENT Consult: No MD Notified: Yes Date Notified:: 08/28/20 Time Notified: 14:18 Method of Notification: Answering Service Reason For Visit: MILD ACUTE ON CHRONIC CHF / MILD HYPERKALEMIA Diagnosis Discharge Diagnosis (1) ESRD on hemodialysis: Status: Chronic Code(s): N18.6 - End stage renal disease; Z99.2 - Dependence on renal dialysis (2) Hypertension: Status: Chronic Code(s): I10 - Essential (primary) hypertension Qualifiers: Hypertension type: unspecified Qualified Code(s): I10 - Essential (primary) hypertension (3) Edema due to hypervolemia: Status: Acute Code(s): E87.70 - Fluid overload, unspecified (4) Anemia: Status: Acute Code(s): D64.9 - Anemia, unspecified Qualifiers: Anemia type: due to chronic kidney disease Chronic kidney disease stage: on chronic dialysis Qualified Code(s): N18.6 - End stage renal disease; D63.1 - Anemia in chronic kidney disease; Z99.2 - Dependence on renal dialysis (5) Secondary renal hyperparathyroidism: Status: Acute Code(s): N25.81 - Secondary hyperparathyroidism of renal origin Medications at Discharge Home Medications promethazine 25 mg PO Q8H PRN PRN 05/14/13 carvedilol 6.25 mg PO BID 08/13/19 bupropion HCl 300 mg PO QHS 12/21/19 calcium acetate(phosphat bind) 1,334 mg PO TIDCM 12/21/19 nitroglycerin 0.4 mg SL Q5M PRN 12/21/19 gabapentin 300 mg PO TID 01/19/20 losartan 50 mg PO DAILY 01/19/20 tizanidine 2 mg PO TID PRN PRN 01/19/20 insulin lispro 20 unit SUBCUT TIDAC #0 01/23/20 Triphrocaps 1 cap PO DAILY 08/28/20 acetaminophen [Tylenol 8 Hour] 650 mg PO Q6H 08/28/20 albuterol sulfate 2 puff INHALATION Q4H PRN 08/28/20 ergocalciferol (vitamin D2) 50,000 unit PO TU 08/28/20 furosemide 40 mg PO BID 08/28/20 guaifenesin [Adult Tussin Chest Congestion] 200 mg PO Q4H 08/28/20 insulin glargine 27 units SC QHS 08/28/20 letrozole 2.5 mg PO DAILY 08/28/20 loratadine 10 mg PO DAILY 08/28/20 magnesium oxide 400 mg PO DAILY 08/28/20 sennosides [senna] 17.2 mg PO BID 08/28/20 sertraline 25 mg PO QHS 08/28/20 ABG / Lab / Microbiology Data Result Diagrams: 08/29/20 06:05 08/29/20 06:05 Laboratory: Laboratory Results - last 24 hr 08/29/20 08/29/20 08/29/20 12:12 16:45 20:40 POC Glucose 73 140 H 102 08/30/20 08/30/20 08:15 11:30 POC Glucose 112 H 151 H Microbiology: Microbiology 08/28/20 13:00 Interface Orders SARS-CoV-2 Antigen (Rapid) - Final D/C Instructions Discharge Diet: Carb Control Diet and Renal Diet Discharge Activity: Return to Normal Activity Discharge Plan Admission Admit Date/Time: 08/28/20 14:18 Primary Reason for Your Visit: Acute on chronic diastolic CHF Attending Provider: Rashmi Bauer Primary Care Provider: Jase Garcia Consulting Providers: Dhara Mallory ; Rock Alejandro ; Michael Max ; Maicol Domínguez ; Esthela Street ; Bryan Power ; Thai Shankar ; Keesha Donald Instructions Additional Instructions / Restrictions: Continue with your medications as prescribed. Follow-up with dialysis as scheduled. Follow-up with your primary care doctor and surgical endoscopist as scheduled. Discharge Orders/Prescriptions Prescriptions: Continued promethazine 25 MG tablet 25 mg PO Q8H PRN PRN (Reason: Nausea) RF: 0 carvedilol 6.25 MG tablet 6.25 mg PO BID RF: 0 nitroglycerin 0.4 MG tablet, sublingual 0.4 mg SL Q5M PRN (Reason: CHEST PAIN) RF: 0 calcium acetate(phosphat bind) 667 MG capsule 1,334 mg PO TIDCM RF: 0 bupropion HCl 300 MG tablet extended release 24 hr 300 mg PO QHS RF: 0 losartan 50 MG tablet 50 mg PO DAILY RF: 0 gabapentin 300 MG capsule 300 mg PO TID RF: 0 tizanidine 2 MG capsule 2 mg PO TID PRN PRN (Reason: muscle relaxant) RF: 0 insulin lispro 100 UNIT/ML insulin pen 20 unit subcut TIDAC Qty: 0 RF: 0 furosemide 40 mg tablet 40 mg PO BID RF: 0 sennosides [senna] 8.6 mg tablet 17.2 mg PO BID RF: 0 guaifenesin [Adult Tussin Chest Congestion] 100 mg/5 mL liquid 200 mg PO Q4H RF: 0 acetaminophen [Tylenol 8 Hour] 650 mg Tablet Extended Release 650 mg PO Q6H RF: 0 magnesium oxide 400 mg (241.3 mg magnesium) tablet 400 mg PO DAILY RF: 0 sertraline 25 mg tablet 25 mg PO QHS RF: 0 ergocalciferol (vitamin D2) 1,250 mcg (50,000 unit) capsule 50,000 unit PO TU RF: 0 Triphrocaps 1 mg capsule 1 cap PO DAILY RF: 0 letrozole 2.5 mg tablet 2.5 mg PO DAILY RF: 0 albuterol sulfate 90 mcg/actuation HFA aerosol inhaler 2 puff INHALATION Q4H PRN (Reason: sob) RF: 0 loratadine 10 mg tablet 10 mg PO DAILY RF: 0 insulin glargine 100 UNITS/ML insulin pen 27 units SC QHS RF: 0 Referrals / Follow Up: Jase Garcia MD [Primary Care Provider] - Within 2 Weeks Disposition Disposition (needs filled in before D/C Order can be placed): Home, self care
--- NOTE | 2020-08-30 12:04 | DIALYSIS ---
HD X 4 HOURS ON 3K BATH. UF-4000ML TOLERATED TX WELL -GOOD FLOWS FROM [facility] CATH VSS REPORT TO MERCEDEZ RUBY
[2020-08-30] MEDS: Loratadine 10 MG Tablet PO (14:00)
[2020-08-30] MEDS: Carvedilol 6.25 MG Tablet PO ×2 (14:00→22:25)
[2020-08-30] MEDS: Losartan Potassium 50 MG Tablet PO (14:01)
[2020-08-30] MEDS: Furosemide 40 MG Tablet PO ×2 (14:02→17:14)
[2020-08-30] MEDS: Magnesium Chloride 64 MG Delay Rel.Tablet 128 MG PO (14:02)
[2020-08-30] MEDS: tiZANidine HCl 2 MG Tablet PO ×2 (14:04→22:37)
--- NOTE | 2020-08-30 14:42 | CASEMGMT ---
RN said patient's niece called in and said she wants patient to go to a fpc. SW spoke with patient and she was in agreement with going to a facility. She was in agreement with SW talking with her niece about where she would go. SW called patient's niece Urvashi. She said she is not going to be able to care for patient anymore. She said she herself is now starting on dialysis. She would like [facility]. She declined a list as she prefers [facility]. SW told her patient will be here through the weekend as she will need insurance to authorize fpc. ANAHY told her SW can follow up with her on Wednesday. ANAHY faxed referral to [facility]. ANAHY also called [facility] and [facility] is out today, but they will watch out for the referral. ANAHY will notify patient. ANAHY notified physician that patient will be here through the weekend as pre-cert is needed for SNF. Plan: [facility] pending acceptance and pre-cert. Cinthya Garcia BROOMMAKERMiladys STUART
--- NOTE | 2020-08-30 15:26 | CASEMGMT ---
Addendum entered by Cinthya Garcia 08/30/20 15:36: Patient's niece has been notified that patient will be here through the weekend to wait on an accepting facility and pre-cert. Patient has also been notified. Cinthya STUART Original Note: Patient's niece called in and asked why patient was not being discharged. SW spoke with her and let her know that it is being recommended that patient go to a facility for rehab. She said patient is saying she is coming home. SW told her SW will talk with patient. SW spoke with patient and she said she does want to go home. SW told her that it is being recommended that she go to a facility for rehab as she is very weak. She said she wants to go where her sister is in [facility]. She will work on getting the name of the facility. She found out it is called [facility]. ANAHY called the admissions department and left a message for Liz. ANAHY will follow up on Wednesday. Details will have to be worked out with patient's dialysis and pre-cert. Plan: SNF pending accepting facility and pre-cert. Cinthya STUART
--- NOTE | 2020-08-30 16:24 | PCM.PN.HOSP ---
Subjective Subjective Patient was seen and examined. Denies any new complains. Denies chest pain, dizziness, palpitations. Objective Data Objective Data Vital Signs: Vital Signs Temp Pulse Resp BP Pulse Ox 98.8 F 83 15 132/55 H 100 08/30/20 11:30 08/30/20 11:44 08/30/20 11:30 08/30/20 11:30 08/30/20 11:30 Oxygen Delivery Method Room Air Weight: 118.2 kg Body Mass Index (BMI) 43.2 Intake & Output: Intake and Output for Last 24 Hours 08/28/20 08/29/20 08/30/20 23:59 23:59 23:59 Intake Total 200 / 500 1400 / 1400 540 / 540 Output Total 3600 / 4000 5100 / 5100 9100 / 9100 Balance -3400 / -3500 -3700 / -3700 -8560 / -8560 Lab / Micro Data Result Diagrams: 08/29/20 06:05 08/29/20 06:05 Labs: Laboratory Results - last 24 hr 08/29/20 08/29/20 08/30/20 16:45 20:40 08:15 POC Glucose 140 H 102 112 H 08/30/20 11:30 POC Glucose 151 H Micro: Microbiology 08/28/20 13:00 Interface Orders SARS-CoV-2 Antigen (Rapid) - Final Physical Exam Narrative General: Alert, Oriented x3, Cooperative, No apparent distress, Well developed HEENT: Atraumatic Oral: Moist Mucosa Neck: Supple Lungs: Diminished at lung bases Cardiovascular: HS I+II, regular, no murmurs Abdomen: Bowel Sounds Present, Soft, Non Tender Extremities: No edema Skin: No rashes, No breakdown Neurological: Grossly intact Psych/Mental Status: Appropriate Resp Resp Narrative: Diminished with sounds bilateral, very faint basal crackles, occasional rhonchi. GI GI Narrative: Obese. Extremity Extremity Narrative: Bilateral leg edema. Assessment & Plan Assessment/Plan (1) ESRD on hemodialysis: (2) Hypertension: QUALIFIERS: Hypertension type: unspecified Qualified Code(s): I10 - Essential (primary) hypertension (3) Edema due to hypervolemia: (4) Anemia: QUALIFIERS: Anemia type: due to chronic kidney disease Chronic kidney disease stage: on chronic dialysis Qualified Code(s): N18.6 - End stage renal disease; D63.1 - Anemia in chronic kidney disease; Z99.2 - Dependence on renal dialysis (5) Secondary renal hyperparathyroidism: PLAN: 1. Acute on chronic diastolic CHF secondary to missed hemodialysis, noncompliance, improved Admitting EKG revealed normal sinus rhythm, no acute changes. Troponin was negative. Chest x-ray unremarkable Patient had fluid removal at dialysis, will continue with strict I's and O's, fluid restriction, daily weights, low-salt diet 2. Hyperkalemia, resolved with dialysis 3. Hyponatremia, chronic, nephrology consulted, repeat blood work tomorrow 4. ESRD on hemodialysis, nephrology consulted, patient will get her usual dialysis tomorrow 6. Hypertension, BP is controlled, Continue Coreg, Lasix and losartan, IV hydralazine as needed. 7. Rest of chronic medical conditions are stable -including type II DM, anemia of CKD, which complicates her overall care Continue to monitor blood sugars, repeat lab work in a.m. Visit Charges Inpatient E&M: 43253 Subs Hosp L2
[2020-08-30 16:30] LABS: Bedside Glucose 224 mg/dL (70-110)
[2020-08-30] MEDS: Insulin Lispro 100 UNIT/ML INSULN.PEN 20 UNIT SC (17:13)
[2020-08-30] MEDS: Insulin Lispro 100 UNIT/ML INSULN.PEN SC (17:13)
[2020-08-30] MEDS: Calcium Acetate 667 MG Capsule 1334 MG PO (17:14)
[2020-08-30] MEDS: Heparin Injection (Vial) 5,000 UNIT/ML VIAL 5000 UNIT SC (22:24)
[2020-08-30] MEDS: buPROPion (XL) 300 MG TABLET.XL PO (22:26)
[2020-08-30] MEDS: Sertraline 50 MG Tablet 25 MG PO (22:27)
[2020-08-30 22:45] LABS: Bedside Glucose 145 mg/dL (70-110)
[2020-08-31] VITALS (10 sets, daily range): BP systolic 105–161; BP diastolic 52–85; PULSE 66–86; RESP 14–17; TEMP 36.6–36.9; O2SAT 94–100
[2020-08-31] MEDS: guaiFENesin 10 ML UDC (200MG/10ML) PO ×5 (03:23→21:37)
[2020-08-31] MEDS: Nystatin Powder 15gm Bottle 1 APPLIC TOPICAL ×3 (06:48→21:36)
[2020-08-31] MEDS: Gabapentin 300 MG Capsule PO ×3 (06:50→21:36)
[2020-08-31 07:31] LABS: Bedside Glucose 96 mg/dL (70-110)
[2020-08-31] MEDS: Magnesium Chloride 64 MG Delay Rel.Tablet 128 MG PO (09:18)
[2020-08-31] MEDS: Carvedilol 6.25 MG Tablet PO ×2 (09:18→21:36)
[2020-08-31] MEDS: Calcium Acetate 667 MG Capsule 1334 MG PO ×3 (09:18→18:35)
[2020-08-31] MEDS: Loratadine 10 MG Tablet PO (09:18)
[2020-08-31] MEDS: Losartan Potassium 50 MG Tablet PO (09:20)
[2020-08-31] MEDS: Furosemide 40 MG Tablet PO ×2 (09:21→18:35)
[2020-08-31] MEDS: Heparin Injection (Vial) 5,000 UNIT/ML VIAL 5000 UNIT SC ×2 (09:22→21:42)
[2020-08-31] MEDS: Insulin Lispro 100 UNIT/ML INSULN.PEN 20 UNIT SC ×2 (09:23→11:52)
[2020-08-31] MEDS: tiZANidine HCl 2 MG Tablet PO ×2 (11:56→21:36)
[2020-08-31 12:00] LABS: Bedside Glucose 126 mg/dL (70-110)
--- NOTE | 2020-08-31 14:35 | PN.HOSP_ITS ---
Subjective Subjective Patient was seen and examined. No new events. She denied any progressive shortness of breath or chest pain Awaiting pre-CERT for discharge to penitentiary facility Objective Data Objective Data Vital Signs: Vital Signs Temp Pulse Resp BP Pulse Ox 98.3 F 80 14 152/52 H 97 08/31/20 09:11 08/31/20 12:23 08/31/20 09:11 08/31/20 09:11 08/31/20 09:11 Oxygen Delivery Method Room Air Weight: 118.2 kg Body Mass Index (BMI) 43.2 Intake & Output: Intake and Output for Last 24 Hours 08/29/20 08/30/20 08/31/20 23:59 23:59 23:59 Intake Total 1400 / 1400 1100 / 1100 1100 / 1100 Output Total 5100 / 5100 9400 / 9400 Balance -3700 / -3700 -8300 / -8300 1100 / 1100 Lab / Micro Data Result Diagrams: 08/29/20 06:05 08/29/20 06:05 Labs: Laboratory Results - last 24 hr 08/30/20 08/30/20 08/31/20 16:13 22:22 07:22 POC Glucose 224 H 145 H 96 08/31/20 11:50 POC Glucose 126 H Micro: Microbiology 08/28/20 13:00 Interface Orders SARS-CoV-2 Antigen (Rapid) - Final Physical Exam Const alert, oriented x3, no apparent distress and no limitations General Appearance: cooperative, comfortable and well kempt HEENT normocephalic, head/scalp atraumatic and moist oral mucous membranes Eyes PERRL, EOMs intact bilaterally, conjunctivae normal and no scleral icterus General Eye: normal appearance of both eyes Periorbital: periorbital findings normal Neck no lymphadenopathy, supple, no meningeal signs, no JVD and no carotid bruits General: trachea midline Thyroid: thyroid normal Resp normal respiratory effort and normal air movement Auscultation: crackles, rales, rhonchi and wheezes Cardio regular rate, regular rhythm, S1 normal heart sound, S2 normal heart sound, no murmurs and no JVD Peripheral Pulses: pulses 2+ throughout GI normal to inspection, nondistended, normoactive bowel sounds, soft to palpation, non-tender and non-distended; Negative for hepatosplenomegaly Auscultation: normoactive bowel sounds Extremity normal to inspection and full ROM Skin no rashes or lesions noted, no wounds and no petechiae Neuro oriented x3, CN's II-XII intact bilaterally and moves all extremities Sensorium / Orientation: alert Speech: speech normal Motor Exam: strength 5/5 throughout Psych mental status grossly normal, affect normal and denies hallucinations Assessment & Plan Assessment/Plan (1) ESRD on hemodialysis: (2) Hypertension: QUALIFIERS: Hypertension type: unspecified Qualified Code(s): I10 - Essential (primary) hypertension (3) Edema due to hypervolemia: (4) Anemia: QUALIFIERS: Anemia type: due to chronic kidney disease Chronic kidney disease stage: on chronic dialysis Qualified Code(s): N18.6 - End stage renal disease; D63.1 - Anemia in chronic kidney disease; Z99.2 - Dependence on renal dialysis (5) Secondary renal hyperparathyroidism: (6) Acute on chronic diastolic CHF (congestive heart failure): PLAN: 1. Acute on chronic diastolic CHF secondary to missed hemodialysis, noncompliance, improved Admitting EKG revealed normal sinus rhythm, no acute changes. Troponin was negative. Chest x-ray unremarkable Patient had fluid removal at dialysis, will continue with strict I's and O's, fluid restriction, daily weights, low-salt diet 2. Hyperkalemia, resolved with dialysis 3. Hyponatremia, chronic, nephrology consulted, repeat blood work tomorrow 4. ESRD on hemodialysis, nephrology consulted, patient will get her usual dialysis tomorrow 5. Hypertension, BP is controlled, Continue Coreg, Lasix and losartan, IV hydralazine as needed. 6. Rest of chronic medical conditions are stable -including type II DM, anemia of CKD, which complicates her overall care Continue to monitor blood sugars, repeat lab work in a.m. Visit Charges Inpatient E&M: 27516 Subs Hosp L2
[2020-08-31] MEDS: Glucerna Shake 120 ML LIQUID PO (15:48)
[2020-08-31 15:51] LABS: Bedside Glucose 51 mg/dL (70-110)
[2020-08-31 17:15] LABS: Bedside Glucose 136 mg/dL (70-110)
--- NOTE | 2020-08-31 18:20 | PCM.PN.REN ---
Subjective Subjective breathing and edema are better tolerated HD session well yesterday Objective Data Objective Data Vital Signs: Vital Signs Temp Pulse Resp BP Pulse Ox 97.8 F 78 15 161/85 H 100 08/31/20 15:47 08/31/20 15:58 08/31/20 15:47 08/31/20 15:47 08/31/20 15:47 Oxygen Delivery Method Room Air Weight: 118.2 kg Body Mass Index (BMI) 43.2 Intake & Output: Intake and Output for Last 24 Hours 08/29/20 08/30/20 08/31/20 23:59 23:59 23:59 Intake Total 1400 / 1400 1100 / 1100 1100 / 1100 Output Total 5100 / 5100 9400 / 9400 Balance -3700 / -3700 -8300 / -8300 1100 / 1100 Lab / Micro Data Result Diagrams: 08/29/20 06:05 08/29/20 06:05 Labs: Laboratory Results - last 24 hr 08/30/20 08/31/20 08/31/20 22:22 07:22 11:50 POC Glucose 145 H 96 126 H 08/31/20 08/31/20 15:44 17:06 POC Glucose 51 L 136 H Micro: Microbiology 08/28/20 13:00 Interface Orders SARS-CoV-2 Antigen (Rapid) - Final Physical Exam Const alert and no apparent distress General Appearance: comfortable HEENT normocephalic Neck Neck Narrative: Left IJ tunneled dialysis catheter General: normal visual inspection and trachea midline Resp normal respiratory effort and clear to auscultation bilaterally Cardio regular rate, regular rhythm, S1 normal heart sound and S2 normal heart sound GI soft to palpation and non-tender GI Narrative: Obese Extremity Extremity Narrative: Bilateral lower extremity edema pitting Neuro Sensorium / Orientation: awake and alert Assessment & Plan Assessment/Plan (1) ESRD on hemodialysis: PLAN: last HD session 08/30. next 09/02 Continue MWF HD schedule. (2) Hypertension: QUALIFIERS: Hypertension type: unspecified Qualified Code(s): I10 - Essential (primary) hypertension PLAN: well controlled.continue same BP meds and UF to EDW (3) Edema due to hypervolemia: PLAN: Salt and fluid restriction reinforced. UF as tolerated with dialysis. (4) Anemia: QUALIFIERS: Anemia type: due to chronic kidney disease Chronic kidney disease stage: on chronic dialysis Qualified Code(s): N18.6 - End stage renal disease; D63.1 - Anemia in chronic kidney disease; Z99.2 - Dependence on renal dialysis PLAN: We will start KANDI if prolonged hospital stay. (5) Secondary renal hyperparathyroidism: PLAN: On Ca acetate . Monitor P and Ca
[2020-08-31] MEDS: Sertraline 50 MG Tablet 25 MG PO (21:35)
[2020-08-31] MEDS: buPROPion (XL) 300 MG TABLET.XL PO (21:36)
[2020-08-31] MEDS: Insulin Lispro 100 UNIT/ML INSULN.PEN SC (21:41)
[2020-08-31 21:50] LABS: Bedside Glucose 243 mg/dL (70-110)
[2020-09-01] VITALS (12 sets, daily range): BP systolic 133–160; BP diastolic 55–77; PULSE 74–89; RESP 14–18; TEMP 36.6–36.8; O2SAT 96–100
[2020-09-01] MEDS: Albuterol 2.5 MG/3 ML VIAL.NEB. INHALATION ×2 (00:55→20:57)
[2020-09-01] MEDS: guaiFENesin 10 ML UDC (200MG/10ML) PO ×6 (02:35→21:16)
[2020-09-01] MEDS: Nystatin Powder 15gm Bottle 1 APPLIC TOPICAL ×3 (06:04→21:16)
[2020-09-01] MEDS: Gabapentin 300 MG Capsule PO ×3 (06:04→21:16)
[2020-09-01] MEDS: tiZANidine HCl 2 MG Tablet PO ×3 (06:08→23:58)
[2020-09-01 06:38] LABS: Absolute Lymphocyte Count 1.18 X10^3/uL (0.83-4.51); Absolute Neutrophil Count 4.3 X10^3/uL (2.0-7.7); Basophil# 0.03 X10^3/uL; Basophil% 0.5 % (0-1); Eosinophil# 0.26 X10^3/uL; Hematocrit 29.5 % (37-47); Lymphocyte # 1.18 X10^3/ul (0.83-4.51); Mean Corp Hgb Conc 33.9 g/dL (32-36); Mean Corpuscular Volume 97.4 fL (81-99); Mean Platelet Vol. 10.3 fl (6.2-12.0); Monocyte# 0.71 X10^3/uL; Monocyte% 10.9 % (0-10); NRBC Flagged by Analyzer 0 % (0-5); Neutrophil # 4.33 X10^3/uL (2.7-7.7); Neutrophil % 66.1 % (47-70); Platelet Count 158 K/mm3 (150-450); RBC Distribution Width SD 46.2 fl (35.1-43.9); Red Blood Count 3.03 M/mm3 (4.2-5.4); White Blood Count 6.5 K/mm3 (4.4-11.0)
[2020-09-01 07:03] LABS: Albumin, Serum 3.4 g/dL (3.2-5.0); BUN 39 mg/dL (7-18); BUN/Creat Ratio 12.7 RATIO (10-20); Calcium,Total 9.1 mg/dL (8.5-10.1); Chloride 97 mmol/L (98-107); Creatinine, Serum 3.08 mg/dL (0.55-1.02); EST Glomerular Filtration Rate 17 mL/min (>60); Est Glom Filt Rate - Afr Amer 20 mL/min (>60); Estimated Creatinine Clearance 18.64 ml/min; Glucose 140 mg/dL (74-106); Phosphorus 4.5 mg/dL (2.5-4.9); Potassium 4.4 mmol/L (3.5-5.1); Sodium Level 128 mmol/L (136-145)
[2020-09-01] MEDS: Carvedilol 6.25 MG Tablet PO ×2 (08:48→21:16)
[2020-09-01] MEDS: Losartan Potassium 50 MG Tablet PO (08:48)
[2020-09-01] MEDS: Calcium Acetate 667 MG Capsule 1334 MG PO ×3 (08:49→17:42)
[2020-09-01] MEDS: Furosemide 40 MG Tablet PO ×2 (08:49→17:42)
[2020-09-01] MEDS: Loratadine 10 MG Tablet PO (08:49)
[2020-09-01] MEDS: Insulin Lispro 100 UNIT/ML INSULN.PEN SC ×2 (08:50→12:47)
[2020-09-01] MEDS: Insulin Lispro 100 UNIT/ML INSULN.PEN 20 UNIT SC ×3 (08:50→17:42)
[2020-09-01] MEDS: Magnesium Chloride 64 MG Delay Rel.Tablet 128 MG PO (08:51)
[2020-09-01] MEDS: Heparin Injection (Vial) 5,000 UNIT/ML VIAL 5000 UNIT SC ×2 (08:52→21:17)
[2020-09-01 09:00] LABS: Bedside Glucose 179 mg/dL (70-110)
[2020-09-01 11:20] LABS: Bedside Glucose 165 mg/dL (70-110)
--- NOTE | 2020-09-01 15:40 | PCM.PN.HOSP ---
Subjective Subjective Patient was seen and examined. No new complaints. Objective Data Objective Data Vital Signs: Vital Signs Temp Pulse Resp BP Pulse Ox 98.3 F 89 14 133/55 H 96 09/01/20 08:46 09/01/20 10:43 09/01/20 08:46 09/01/20 08:46 09/01/20 08:46 Oxygen Delivery Method Room Air Weight: 118.2 kg Body Mass Index (BMI) 43.2 Intake & Output: Intake and Output for Last 24 Hours 08/30/20 08/31/20 09/01/20 23:59 23:59 23:59 Intake Total 1100 / 1100 2009 840 / 840 Output Total 9400 / 9400 500 / 500 550 / 550 Balance -8300 / -8300 1510 / 1510 290 / 290 Lab / Micro Data Result Diagrams: 09/01/20 06:30 09/01/20 06:30 Labs: Laboratory Results - last 24 hr 08/31/20 08/31/20 08/31/20 15:44 17:06 21:33 WBC RBC Hgb Hct MCV MCH MCHC RDW Std Deviation RDW Coeff of Angela Plt Count MPV Immature Gran % (Auto) Neut % (Auto) Lymph % (Auto) [place] % (Auto) Eos % (Auto) Baso % (Auto) Absolute Neuts (auto) Absolute Lymphs (auto) Nucleated RBC % Sodium Potassium Chloride Carbon Dioxide BUN Creatinine Estim Creat Clear Calc Est GFR (MDRD) Af Amer Est GFR (MDRD) Non-Af BUN/Creatinine Ratio Glucose Calcium Phosphorus Albumin POC Glucose 51 L 136 H 243 H 09/01/20 09/01/20 09/01/20 06:30 06:30 08:44 WBC 6.5 RBC 3.03 L Hgb 10.0 L Hct 29.5 L MCV 97.4 MCH 33.0 H MCHC 33.9 RDW Std Deviation 46.2 H RDW Coeff of Angela 13.0 Plt Count 158 MPV 10.3 Immature Gran % (Auto) 0.500 Neut % (Auto) 66.1 Lymph % (Auto) 18.0 L [place] % (Auto) 10.9 H Eos % (Auto) 4.0 Baso % (Auto) 0.5 Absolute Neuts (auto) 4.3 Absolute Lymphs (auto) 1.18 Nucleated RBC % 0 Sodium 128 L Potassium 4.4 Chloride 97 L Carbon Dioxide 25.0 BUN 39 H Creatinine 3.08 H Estim Creat Clear Calc 18.64 Est GFR (MDRD) Af Amer 20 L Est GFR (MDRD) Non-Af 17 L BUN/Creatinine Ratio 12.7 Glucose 140 H Calcium 9.1 Phosphorus 4.5 Albumin 3.4 POC Glucose 179 H 09/01/20 11:14 WBC RBC Hgb Hct MCV MCH MCHC RDW Std Deviation RDW Coeff of Angela Plt Count MPV Immature Gran % (Auto) Neut % (Auto) Lymph % (Auto) [place] % (Auto) Eos % (Auto) Baso % (Auto) Absolute Neuts (auto) Absolute Lymphs (auto) Nucleated RBC % Sodium Potassium Chloride Carbon Dioxide BUN Creatinine Estim Creat Clear Calc Est GFR (MDRD) Af Amer Est GFR (MDRD) Non-Af BUN/Creatinine Ratio Glucose Calcium Phosphorus Albumin POC Glucose 165 H Micro: Microbiology 08/28/20 13:00 Interface Orders SARS-CoV-2 Antigen (Rapid) - Final Physical Exam Narrative Physical exam: General: Alert, Oriented x3, Cooperative, No apparent distress, Well developed HEENT: Atraumatic Oral: Moist Mucosa Neck: Supple Lungs: Clear to auscultation Cardiovascular: HS I+II, regular, no murmurs Abdomen: Bowel Sounds Present, Soft, Non Tender Extremities: No edema Skin: No rashes, No breakdown Neurological: Grossly intact Psych/Mental Status: Appropriate Assessment & Plan Assessment/Plan (1) ESRD on hemodialysis: (2) Hypertension: QUALIFIERS: Hypertension type: unspecified Qualified Code(s): I10 - Essential (primary) hypertension (3) Edema due to hypervolemia: (4) Anemia: QUALIFIERS: Anemia type: due to chronic kidney disease Chronic kidney disease stage: on chronic dialysis Qualified Code(s): N18.6 - End stage renal disease; D63.1 - Anemia in chronic kidney disease; Z99.2 - Dependence on renal dialysis (5) Secondary renal hyperparathyroidism: (6) Acute on chronic diastolic CHF (congestive heart failure): PLAN: 60-year-old female with past medical history of ESRD on hemodialysis who comes in with cough-missed dialysis 1. Acute on chronic diastolic CHF secondary to missed hemodialysis, noncompliance, improved Admitting EKG revealed normal sinus rhythm, no acute changes. Troponin was negative. Chest x-ray unremarkable Patient had fluid removal at dialysis, will continue with strict I's and O's, fluid restriction, daily weights, low-salt diet 2. Hyperkalemia, resolved with dialysis 3. Hyponatremia, chronic, nephrology consulted, repeat blood work tomorrow 4. ESRD on hemodialysis, nephrology following 5. Hypertension, BP is fairly uncontrolled, Will increase losartan 100 mg daily from 50 mg, Continue Coreg, Lasix and IV hydralazine as needed. 6. Rest of chronic medical conditions are stable -including type II DM, anemia of CKD, which complicates her overall care Continue to monitor blood sugars, repeat lab work in a.m. Visit Charges Inpatient E&M: 74385 Subs Hosp L2
[2020-09-01] MEDS: Acetaminophen 325 MG Tablet 650 MG PO (15:53)
[2020-09-01 16:06] LABS: Bedside Glucose 122 mg/dL (70-110)
[2020-09-01] MEDS: Sertraline 50 MG Tablet 25 MG PO (21:15)
[2020-09-01] MEDS: buPROPion (XL) 300 MG TABLET.XL PO (21:16)
[2020-09-01 21:25] LABS: Bedside Glucose 141 mg/dL (70-110)
[2020-09-02] VITALS (9 sets, daily range): BP systolic 121–142; BP diastolic 54–68; PULSE 73–87; RESP 16–18; TEMP 36.2–37; O2SAT 92–97
[2020-09-02] MEDS: guaiFENesin 10 ML UDC (200MG/10ML) PO ×5 (01:43→21:23)
[2020-09-02 05:40] LABS: Absolute Lymphocyte Count 1.08 X10^3/uL (0.83-4.51); Absolute Neutrophil Count 4.4 X10^3/uL (2.0-7.7); Basophil# 0.02 X10^3/uL; Basophil% 0.3 % (0-1); Eosinophil# 0.26 X10^3/uL; Hematocrit 28.9 % (37-47); Hemoglobin 9.8 g/dL (12.0-15.0); Lymphocyte # 1.08 X10^3/ul (0.83-4.51); Lymphocyte % 16.7 % (19-41); Mean Corp Hgb Conc 33.9 g/dL (32-36); Mean Corpuscular Hgb 33.3 pg (27.0-32.0); Mean Corpuscular Volume 98.3 fL (81-99); Mean Platelet Vol. 10.3 fl (6.2-12.0); Monocyte# 0.66 X10^3/uL; Monocyte% 10.2 % (0-10); NRBC Flagged by Analyzer 0 % (0-5); Neutrophil # 4.42 X10^3/uL (2.7-7.7); Neutrophil % 68.3 % (47-70); Platelet Count 153 K/mm3 (150-450); RBC Distribution Width CV 13.2 % (11.6-14.6); RBC Distribution Width SD 47.2 fl (35.1-43.9); Red Blood Count 2.94 M/mm3 (4.2-5.4); White Blood Count 6.5 K/mm3 (4.4-11.0)
[2020-09-02 06:04] LABS: Albumin, Serum 3.1 g/dL (3.2-5.0); BUN 53 mg/dL (7-18); BUN/Creat Ratio 15.4 RATIO (10-20); Calcium,Total 8.7 mg/dL (8.5-10.1); Chloride 97 mmol/L (98-107); Creatinine, Serum 3.45 mg/dL (0.55-1.02); EST Glomerular Filtration Rate 15 mL/min (>60); Est Glom Filt Rate - Afr Amer 18 mL/min (>60); Estimated Creatinine Clearance 16.64 ml/min; Glucose 125 mg/dL (74-106); Phosphorus 4.8 mg/dL (2.5-4.9); Potassium 4.7 mmol/L (3.5-5.1); Sodium Level 129 mmol/L (136-145)
[2020-09-02] MEDS: Nystatin Powder 15gm Bottle 1 APPLIC TOPICAL ×3 (06:24→21:24)
[2020-09-02] MEDS: tiZANidine HCl 2 MG Tablet PO ×3 (06:25→22:05)
[2020-09-02] MEDS: Gabapentin 300 MG Capsule PO ×3 (06:25→21:23)
--- NOTE | 2020-09-02 11:00 | CASEMGMT ---
ANAHY spoke with Liz from [facility]. Her fax number is [phone] and her phone number is [phone]. She told SW to go ahead and fax the referral. She said patient's that they have had usually go to [facility] as they have several facilities around them. SW spoke with patient and let her know that she would have to switch dialysis companies. She was aware of this and is in agreement with [facility]. ANAHY called [facility] central intake and spoke with Mt. He said SW will have to make a new referral to [facility] to switch patient to their care. He will fax SW an intake sheet. Await this paperwork. Also, awaiting to see if [facility] will accept patient. Cinthya Garcia MSW NARCISO
[2020-09-02] MEDS: Losartan Potassium 100 MG Tablet PO (11:10)
[2020-09-02] MEDS: Magnesium Chloride 64 MG Delay Rel.Tablet 128 MG PO (11:10)
[2020-09-02] MEDS: Heparin Injection (Vial) 5,000 UNIT/ML VIAL 5000 UNIT SC ×2 (11:10→21:25)
[2020-09-02] MEDS: Loratadine 10 MG Tablet PO (11:11)
[2020-09-02] MEDS: Calcium Acetate 667 MG Capsule 1334 MG PO ×2 (11:11→16:22)
[2020-09-02] MEDS: Furosemide 40 MG Tablet PO ×2 (11:12→16:23)
[2020-09-02] MEDS: Carvedilol 6.25 MG Tablet PO ×2 (11:13→21:23)
--- NOTE | 2020-09-02 12:07 | DIALYSIS ---
HD X 4 HOURS [id number] TOLERATED WELL LIJ CATH WITH BFR 300-400 VSS POST TX REPORT TO CORINE RUBY
[2020-09-02 12:15] LABS: Bedside Glucose 133 mg/dL (70-110)
[2020-09-02] MEDS: Heparin 10,000 UNITS/10 ML Vial IV (12:32)
[2020-09-02] MEDS: Heparin 10,000 UNITS/10 ML Vial 2000 UNITS IV (12:32)
[2020-09-02] MEDS: Insulin Lispro 100 UNIT/ML INSULN.PEN 20 UNIT SC ×2 (12:47→16:16)
--- NOTE | 2020-09-02 13:53 | PCM.PN.REN ---
Subjective Subjective The patient denies shortness of breath chest pain or any other complaints. Objective Data Objective Data Vital Signs: Vital Signs Temp Pulse Resp BP Pulse Ox 97.2 F L 73 16 121/54 H 94 09/02/20 09:15 09/02/20 11:51 09/02/20 09:15 09/02/20 09:15 09/02/20 09:15 Oxygen Delivery Method Room Air Weight: 118.2 kg Body Mass Index (BMI) 43.2 Intake & Output: Intake and Output for Last 24 Hours 08/31/20 09/01/20 09/02/20 23:59 23:59 23:59 Intake Total 2009 1820 / 1820 140 / 140 Output Total 500 / 500 550 / 550 4200 / 4200 Balance 1510 / 1510 1270 / 1270 -4060 / -4060 Lab / Micro Data Result Diagrams: 09/02/20 05:28 09/02/20 05:28 Labs: Laboratory Results - last 24 hr 09/01/20 09/01/20 09/02/20 15:57 21:13 05:28 WBC 6.5 RBC 2.94 L Hgb 9.8 L Hct 28.9 L MCV 98.3 MCH 33.3 H MCHC 33.9 RDW Std Deviation 47.2 H RDW Coeff of Angela 13.2 Plt Count 153 MPV 10.3 Immature Gran % (Auto) 0.500 Neut % (Auto) 68.3 Lymph % (Auto) 16.7 L [place] % (Auto) 10.2 H Eos % (Auto) 4.0 Baso % (Auto) 0.3 Absolute Neuts (auto) 4.4 Absolute Lymphs (auto) 1.08 Nucleated RBC % 0 Sodium Potassium Chloride Carbon Dioxide BUN Creatinine Estim Creat Clear Calc Est GFR (MDRD) Af Amer Est GFR (MDRD) Non-Af BUN/Creatinine Ratio Glucose Calcium Phosphorus Albumin POC Glucose 122 H 141 H 09/02/20 09/02/20 05:28 11:07 WBC RBC Hgb Hct MCV MCH MCHC RDW Std Deviation RDW Coeff of Angela Plt Count MPV Immature Gran % (Auto) Neut % (Auto) Lymph % (Auto) [place] % (Auto) Eos % (Auto) Baso % (Auto) Absolute Neuts (auto) Absolute Lymphs (auto) Nucleated RBC % Sodium 129 L Potassium 4.7 Chloride 97 L Carbon Dioxide 25.0 BUN 53 H Creatinine 3.45 H Estim Creat Clear Calc 16.64 Est GFR (MDRD) Af Amer 18 L Est GFR (MDRD) Non-Af 15 L BUN/Creatinine Ratio 15.4 Glucose 125 H Calcium 8.7 Phosphorus 4.8 Albumin 3.1 L POC Glucose 133 H Micro: Microbiology 08/28/20 13:00 Interface Orders SARS-CoV-2 Antigen (Rapid) - Final Physical Exam Const alert and no apparent distress General Appearance: comfortable HEENT normocephalic Neck Neck Narrative: Left IJ tunneled dialysis catheter General: normal visual inspection and trachea midline Resp normal respiratory effort and clear to auscultation bilaterally Cardio regular rate, regular rhythm, S1 normal heart sound and S2 normal heart sound GI soft to palpation and non-tender GI Narrative: Obese Extremity Extremity Narrative: Bilateral lower extremity edema pitting Neuro Sensorium / Orientation: awake and alert Assessment & Plan Assessment/Plan (1) ESRD on hemodialysis: PLAN: Tolerated well HD today Continue MWF HD schedule. (2) Hypertension: QUALIFIERS: Hypertension type: unspecified Qualified Code(s): I10 - Essential (primary) hypertension PLAN: well controlled.continue same BP meds (3) Edema due to hypervolemia: PLAN: Salt and fluid restriction reinforced. UF as tolerated with dialysis. (4) Anemia: QUALIFIERS: Anemia type: due to chronic kidney disease Chronic kidney disease stage: on chronic dialysis Qualified Code(s): N18.6 - End stage renal disease; D63.1 - Anemia in chronic kidney disease; Z99.2 - Dependence on renal dialysis PLAN: We will start KANDI if prolonged hospital stay. (5) Secondary renal hyperparathyroidism: PLAN: On Ca acetate . Monitor P and Ca
--- NOTE | 2020-09-02 14:14 | CASEMGMT ---
SW received the [facility] intake form. All information faxed to [facility]. Still waiting on [facility] to let ANAHY know if they will accept patient or not. Cinthya Garcia MSW NARCISO
--- NOTE | 2020-09-02 14:50 | CASEMGMT ---
ANAHY has not heard back from [facility] regarding whether or not they will accept patient. ANAHY called Liz and left her a voice mail. Cinthya Garcia MSW NARCISO
--- NOTE | 2020-09-02 15:26 | CASEMGMT ---
SW received a call from [facility] and patient was approved to go to [facility]'s facility in [place] 3rd shift M,W, and F. SW is still waiting to hear from [facility]. Cinthya STUART
[2020-09-02] MEDS: Insulin Lispro 100 UNIT/ML INSULN.PEN SC (16:15)
[2020-09-02 16:21] LABS: Bedside Glucose 180 mg/dL (70-110)
--- NOTE | 2020-09-02 17:50 | PN.HOSP_ITS ---
Subjective Subjective Patient on hemodialysis through left subclavian permacath. Does not have any specific complaint. Objective Data Objective Data Vital Signs: Vital Signs Temp Pulse Resp BP Pulse Ox 97.9 F 75 16 142/68 H 94 09/02/20 15:30 09/02/20 15:30 09/02/20 15:30 09/02/20 15:30 09/02/20 15:30 Oxygen Delivery Method Room Air Weight: 260 lb 9.382 oz Body Mass Index (BMI) 43.2 Intake & Output: Intake and Output for Last 24 Hours 08/31/20 09/01/20 09/02/20 23:59 23:59 23:59 Intake Total 2009 1820 / 1820 140 / 140 Output Total 500 / 500 550 / 550 4200 / 4200 Balance 1510 / 1510 1270 / 1270 -4060 / -4060 Lab / Micro Data Result Diagrams: 09/02/20 05:28 09/02/20 05:28 Labs: Laboratory Results - last 24 hr 09/01/20 09/02/20 09/02/20 21:13 05:28 05:28 WBC 6.5 RBC 2.94 L Hgb 9.8 L Hct 28.9 L MCV 98.3 MCH 33.3 H MCHC 33.9 RDW Std Deviation 47.2 H RDW Coeff of Angela 13.2 Plt Count 153 MPV 10.3 Immature Gran % (Auto) 0.500 Neut % (Auto) 68.3 Lymph % (Auto) 16.7 L [place] % (Auto) 10.2 H Eos % (Auto) 4.0 Baso % (Auto) 0.3 Absolute Neuts (auto) 4.4 Absolute Lymphs (auto) 1.08 Nucleated RBC % 0 Sodium 129 L Potassium 4.7 Chloride 97 L Carbon Dioxide 25.0 BUN 53 H Creatinine 3.45 H Estim Creat Clear Calc 16.64 Est GFR (MDRD) Af Amer 18 L Est GFR (MDRD) Non-Af 15 L BUN/Creatinine Ratio 15.4 Glucose 125 H Calcium 8.7 Phosphorus 4.8 Albumin 3.1 L POC Glucose 141 H 09/02/20 09/02/20 11:07 16:12 WBC RBC Hgb Hct MCV MCH MCHC RDW Std Deviation RDW Coeff of Angela Plt Count MPV Immature Gran % (Auto) Neut % (Auto) Lymph % (Auto) [place] % (Auto) Eos % (Auto) Baso % (Auto) Absolute Neuts (auto) Absolute Lymphs (auto) Nucleated RBC % Sodium Potassium Chloride Carbon Dioxide BUN Creatinine Estim Creat Clear Calc Est GFR (MDRD) Af Amer Est GFR (MDRD) Non-Af BUN/Creatinine Ratio Glucose Calcium Phosphorus Albumin POC Glucose 133 H 180 H Micro: Microbiology 08/28/20 13:00 Interface Orders SARS-CoV-2 Antigen (Rapid) - Final Physical Exam Narrative General: Alert, Oriented x3, Cooperative HEENT: Atraumatic, PERRLA, EOMI, Normocephalic Oral: No Gingival or Mucosal Lesions/ Ulcerations Neck: Supple, No JVD, Negative Carotid Bruits Lungs: Air entry diminished in bilateral lung bases. No crepitation/rhonchi Cardiovascular: Regular rate, Regular Rhythm, Normal S1, Normal S2, No murmurs Abdomen: Bowel Sounds Present, Soft, Non Tender, abdominal distention, possible ascites/abdominal wall edema : On hemodialysis no renal angle tenderness. No suprapubic tenderness. Extremities: No significant lower extremity edema, Capillary Refill Less than 3 Seconds Skin: No rashes, No breakdown Musculoskeletal: No Tenderness to Palpation of Joints or Extremities Neurological: Cranial nerves II-XII grossly intact, Deep Tendon Reflexes 2+/4 and Symmetrical, Neuro grossly intact Psych/Mental Status: Normal Affect, Appropriate. Assessment & Plan Assessment/Plan (1) ESRD on hemodialysis: (2) Hypertension: QUALIFIERS: Hypertension type: unspecified Qualified Code(s): I10 - Essential (primary) hypertension (3) Edema due to hypervolemia: (4) Anemia: QUALIFIERS: Anemia type: due to chronic kidney disease Chronic kidney disease stage: on chronic dialysis Qualified Code(s): N18.6 - End stage renal disease; D63.1 - Anemia in chronic kidney disease; Z99.2 - Dependence on renal dialysis (5) Secondary renal hyperparathyroidism: (6) Acute on chronic diastolic CHF (congestive heart failure): PLAN: 60-year-old female with past medical history of ESRD on hemodialysis who comes in with cough-missed dialysis 1. Acute on chronic diastolic CHF secondary to missed hemodialysis, noncompliance, improved: Patient currently does not have shortness of breath. Scheduled for 4 L of fluid removal by dialysis today. Heart failure core measures including intake and output, fluid restriction less than 1500 mL, daily weight monitoring, kidney and electrolytes monitoring Admitting EKG revealed normal sinus rhythm, no acute changes. Troponin was negative. Chest x-ray unremarkable 2. Hyperkalemia, resolved with dialysis 3. Hyponatremia, chronic, nephrology consulted, repeat blood work tomorrow 4. ESRD on hemodialysis, nephrology following 5. Hypertension, BP is fairly uncontrolled, Increased losartan 100 mg daily from 50 mg, Continue Coreg, Lasix and IV hydralazine as needed. 6. Rest of chronic medical conditions are stable -including type II DM, anemia of CKD, which complicates her overall care Continue to monitor blood sugars, and adjust glucose accordingly. Currently glucose is Visit Charges Inpatient E&M: 97565 Subs Hosp L2
[2020-09-02] MEDS: Sertraline 50 MG Tablet 25 MG PO (21:23)
[2020-09-02] MEDS: buPROPion (XL) 300 MG TABLET.XL PO (21:23)
[2020-09-02] MEDS: Acetaminophen 325 MG Tablet 650 MG PO (21:24)
[2020-09-02 21:35] LABS: Bedside Glucose 101 mg/dL (70-110)
[2020-09-03] VITALS (11 sets, daily range): BP systolic 118–147; BP diastolic 62–79; PULSE 73–89; RESP 15–16; TEMP 36.3–37.1; O2SAT 94–99
[2020-09-03] MEDS: Nystatin Powder 15gm Bottle 1 APPLIC TOPICAL ×3 (05:46→20:25)
[2020-09-03] MEDS: guaiFENesin 10 ML UDC (200MG/10ML) PO ×2 (05:46→09:03)
[2020-09-03] MEDS: Gabapentin 300 MG Capsule PO ×3 (05:46→20:24)
--- NOTE | 2020-09-03 07:21 | CASEMGMT ---
Addendum entered by Cinthya Garcia 09/03/20 08:34: ANAHY called [facility] to obtain patient's time slot. ANAHY was told that there is not an actual time set up yet because they need the Hepatitis B Antigen still. ANAHY told him that this lab has been ordered, but not resulted yet. He said once they receive that then they can proceed with setting patient up with an actual time. ANAHY told him that the patient will be going to [facility] and they ask that she have a M,W, F schedule and a middle of the day schedule for transportation issues. He put in a note with this request. Await the Hep B Antigen. ANAHY also called Liz on her cell and left her a message letting her know above information. ANAHY also asked that she please start the pre-cert so we can be ready to send patient once Hep panel is back and schedule is given. Cinthya Garcia PROOF TECHNICIAN NARCISO Original Note: ANAHY received a voice mail from Liz at [facility]. They can accept patient, but a few things need worked out. They need patient's dialysis schedule to be M,W,F and during regular hours so they can provide transportation. She will not be in until 1130 on Wednesday so she left SW her cell number. ANAHY will make sure she has started pre-cert. ANAHY will also follow up with Marla to obtain patient's actual dialysis time and then make sure this will work for [place]. Cinthya Garcia PROOF TECHNICIANMiladys STUART
[2020-09-03] MEDS: Insulin Lispro 100 UNIT/ML INSULN.PEN 20 UNIT SC ×2 (09:01→11:27)
[2020-09-03] MEDS: Calcium Acetate 667 MG Capsule 1334 MG PO ×3 (09:01→17:19)
[2020-09-03] MEDS: Carvedilol 6.25 MG Tablet PO ×2 (09:02→20:24)
[2020-09-03] MEDS: Furosemide 40 MG Tablet PO ×2 (09:02→17:19)
[2020-09-03] MEDS: Losartan Potassium 100 MG Tablet PO (09:02)
[2020-09-03] MEDS: Heparin Injection (Vial) 5,000 UNIT/ML VIAL 5000 UNIT SC ×2 (09:02→20:26)
[2020-09-03] MEDS: Loratadine 10 MG Tablet PO (09:02)
[2020-09-03] MEDS: Magnesium Chloride 64 MG Delay Rel.Tablet 128 MG PO (09:02)
[2020-09-03] MEDS: tiZANidine HCl 2 MG Tablet PO ×2 (09:03→12:57)
--- NOTE | 2020-09-03 09:28 | CASEMGMT ---
ANAHY received a call from Liz at [place]. She said the once transport company they contract with will not transport dialysis patients. She spoke with the other company they contract with and the individual was going to talk with the cryptologic supervisor. She will let SW know. ANAHY told her as soon as ANAHY has a time SW will let her know. She did say they have a sister facility in [place] that does dialysis on site. ANAHY told her not sure if patient will want this as she wanted to go to [place] to be by her sister. She understands and hopes to get transport. Cinthya STUART
[2020-09-03] MEDS: guaiFENesin/D-Methorphan TAB.SR.12H 1 TABLET PO ×2 (11:34→20:25)
[2020-09-03 11:36] LABS: Bedside Glucose 130 mg/dL (70-110)
--- NOTE | 2020-09-03 13:30 | CASEMGMT ---
ANAHY spoke with Liz from [facility]. She has not heard from their transportation company despite calling back again. She thinks we need to proceed to a 2nd choice. She is going to call patient and talk with her about their sister facility in [place] that does dialysis on site. She will then call SW back. ANAHY received a return call from Liz. She spoke with patient and patient does not want to go to [place] as it will be too far from his sister. Her sister does not live in the jail she just lives nearby. Patient thinks she is getting short term rehab and then going back to [place] to stay with her niece. Liz told her that would not make any sense for her to go to a new dialysis center for a couple of weeks and then go back to her original one. Patient told her that her sister could transport her to dialysis. Her concern with this is if for some reason her sister could not transport her they would have no way to get her to dialysis. ANAHY told her SW will talk with patient. She is also going to reach out to patient's sister. Cinthya Garcia MSW NARCISO
[2020-09-03 14:12] LABS: Hepatitis B Surface Antigen Non-Reactive (Nonreactive)
--- NOTE | 2020-09-03 15:26 | PN.RENAL_ITS ---
Subjective Subjective no c/o no cp/sob Objective Data Objective Data Vital Signs: Vital Signs Temp Pulse Resp BP Pulse Ox 97.9 F 82 16 118/72 96 09/03/20 14:43 09/03/20 14:43 09/03/20 14:43 09/03/20 14:43 09/03/20 14:43 Oxygen Delivery Method Room Air Weight: 110 kg Body Mass Index (BMI) 43.2 Intake & Output: Intake and Output for Last 24 Hours 09/01/20 09/02/20 09/03/20 23:59 23:59 23:59 Intake Total 1820 / 1820 620 / 620 100 / 100 Output Total 550 / 550 4600 / 4600 Balance 1270 / 1270 -3980 / -3980 100 / 100 Lab / Micro Data Result Diagrams: 09/02/20 05:28 09/02/20 05:28 Labs: Laboratory Results - last 24 hr 09/02/20 09/02/20 09/02/20 16:12 18:23 21:18 Hep Bs Antigen Non-Reactive POC Glucose 180 H 101 09/03/20 11:25 Hep Bs Antigen POC Glucose 130 H Micro: Microbiology 08/28/20 13:00 Interface Orders SARS-CoV-2 Antigen (Rapid) - Final Physical Exam Const alert and no apparent distress General Appearance: comfortable HEENT normocephalic Neck Neck Narrative: Left IJ tunneled dialysis catheter General: normal visual inspection and trachea midline Resp normal respiratory effort and clear to auscultation bilaterally Cardio regular rate, regular rhythm, S1 normal heart sound and S2 normal heart sound GI soft to palpation and non-tender GI Narrative: Obese Extremity Extremity Narrative: Bilateral lower extremity edema pitting Neuro Sensorium / Orientation: awake and alert Assessment & Plan Assessment/Plan (1) ESRD on hemodialysis: PLAN: Continue MWF HD schedule. (2) Hypertension: QUALIFIERS: Hypertension type: unspecified Qualified Code(s): I10 - Essential (primary) hypertension PLAN: well controlled.continue same BP meds (3) Edema due to hypervolemia: PLAN: Salt and fluid restriction reinforced. UF as tolerated with dialysis. (4) Anemia: QUALIFIERS: Anemia type: due to chronic kidney disease [facility] disease stage: on chronic dialysis Qualified Code(s): N18.6 - End stage renal disease; D63.1 - Anemia in chronic kidney disease; Z99.2 - Dependence on renal dialysis PLAN: We will start KANDI if prolonged hospital stay. (5) Secondary renal hyperparathyroidism: PLAN: On Ca acetate . Monitor P and Ca
--- NOTE | 2020-09-03 16:49 | PCM.PN.HOSP ---
Subjective Subjective Patient is mild cough. No fever or chills. Seems mainly from URI/throat irritation Objective Data Objective Data Vital Signs: Vital Signs Temp Pulse Resp BP Pulse Ox 97.9 F 82 16 118/72 96 09/03/20 14:43 09/03/20 14:43 09/03/20 14:43 09/03/20 14:43 09/03/20 14:43 Oxygen Delivery Method Room Air Weight: 242 lb 8.136 oz Body Mass Index (BMI) 43.2 Intake & Output: Intake and Output for Last 24 Hours 09/01/20 09/02/20 09/03/20 23:59 23:59 23:59 Intake Total 1820 / 1820 620 / 620 100 / 100 Output Total 550 / 550 4600 / 4600 Balance 1270 / 1270 -3980 / -3980 100 / 100 Lab / Micro Data Result Diagrams: 09/02/20 05:28 09/02/20 05:28 Labs: Laboratory Results - last 24 hr 09/02/20 09/02/20 09/03/20 18:23 21:18 11:25 Hep Bs Antigen Non-Reactive POC Glucose 101 130 H Micro: Microbiology 08/28/20 13:00 Interface Orders SARS-CoV-2 Antigen (Rapid) - Final Physical Exam Narrative General: Alert, Oriented x3, Cooperative HEENT: Atraumatic, PERRLA, EOMI, Normocephalic Oral: No Gingival or Mucosal Lesions/ Ulcerations Neck: Supple, No JVD, Negative Carotid Bruits Lungs: Air entry diminished in bilateral lung bases. No crepitation/rhonchi Cardiovascular: Regular rate, Regular Rhythm, Normal S1, Normal S2, No murmurs Abdomen: Bowel Sounds Present, Soft, Non Tender, abdominal distention, possible ascites/abdominal wall edema : On hemodialysis no renal angle tenderness. No suprapubic tenderness. Extremities: No significant lower extremity edema, Capillary Refill Less than 3 Seconds Skin: No rashes, No breakdown Musculoskeletal: No Tenderness to Palpation of Joints or Extremities Neurological: Cranial nerves II-XII grossly intact, Deep Tendon Reflexes 2+/4 and Symmetrical, Neuro grossly intact Psych/Mental Status: Normal Affect, Appropriate. Assessment & Plan Assessment/Plan (1) ESRD on hemodialysis: (2) Hypertension: QUALIFIERS: Hypertension type: unspecified Qualified Code(s): I10 - Essential (primary) hypertension (3) Edema due to hypervolemia: (4) Anemia: QUALIFIERS: Anemia type: due to chronic kidney disease Chronic kidney disease stage: on chronic dialysis Qualified Code(s): N18.6 - End stage renal disease; D63.1 - Anemia in chronic kidney disease; Z99.2 - Dependence on renal dialysis (5) Secondary renal hyperparathyroidism: (6) Acute on chronic diastolic CHF (congestive heart failure): PLAN: 60-year-old female with past medical history of ESRD on hemodialysis who comes in with cough-missed dialysis 1. Acute on chronic diastolic CHF secondary to missed hemodialysis, noncompliance, improved: Patient currently does not have shortness of breath. Scheduled for 4 L of fluid removal by dialysis today. Heart failure core measures including intake and output, fluid restriction less than 1500 mL, daily weight monitoring, kidney and electrolytes monitoring Admitting EKG revealed normal sinus rhythm, no acute changes. Troponin was negative. Chest x-ray unremarkable 09/03: Mucinex and Claritin for cough. 2. Hyperkalemia, resolved with dialysis. Patient on dialysis regimen as per kennel manager dog track. 3. Hyponatremia, chronic, nephrology consulted, repeat blood work tomorrow 4. ESRD on hemodialysis, nephrology following 5. Hypertension, BP is fairly uncontrolled, Increased losartan 100 mg daily from 50 mg, Continue Coreg, Lasix and IV hydralazine as needed. 6. Rest of chronic medical conditions are stable -including type II DM, anemia of CKD, which complicates her overall care Continue to monitor blood sugars, and adjust glucose accordingly. Currently glucose is
[2020-09-03 17:15] LABS: Bedside Glucose 96 mg/dL (70-110)
[2020-09-03] MEDS: Sertraline 50 MG Tablet 25 MG PO (20:24)
[2020-09-03] MEDS: Insulin Lispro 100 UNIT/ML INSULN.PEN SC (20:25)
[2020-09-03] MEDS: buPROPion (XL) 300 MG TABLET.XL PO (20:25)
[2020-09-03 22:06] LABS: Bedside Glucose 240 mg/dL (70-110)
--- NOTE | 2020-09-03 23:58 | NURSING ---
Pt requested evening medications at 2020 when RN was in the room. Medications given per pt request.
[2020-09-04] VITALS (7 sets, daily range): BP systolic 127–172; BP diastolic 49–76; PULSE 72–80; RESP 16–18; TEMP 36.2–36.9; O2SAT 94–97
[2020-09-04 05:24] LABS: Absolute Lymphocyte Count 1.24 X10^3/uL (0.83-4.51); Absolute Neutrophil Count 4.1 X10^3/uL (2.0-7.7); Basophil# 0.03 X10^3/uL; Basophil% 0.5 % (0-1); Eosinophil# 0.33 X10^3/uL; Eosinophils% 5.1 % (0-5); Hematocrit 28.9 % (37-47); Hemoglobin 9.7 g/dL (12.0-15.0); Lymphocyte # 1.24 X10^3/ul (0.83-4.51); Lymphocyte % 19.3 % (19-41); Mean Corp Hgb Conc 33.6 g/dL (32-36); Mean Corpuscular Volume 98.3 fL (81-99); Mean Platelet Vol. 10.4 fl (6.2-12.0); Monocyte# 0.75 X10^3/uL; Monocyte% 11.6 % (0-10); NRBC Flagged by Analyzer 0 % (0-5); Neutrophil # 4.06 X10^3/uL (2.7-7.7); Platelet Count 157 K/mm3 (150-450); RBC Distribution Width CV 12.7 % (11.6-14.6); RBC Distribution Width SD 45.9 fl (35.1-43.9); Red Blood Count 2.94 M/mm3 (4.2-5.4); White Blood Count 6.4 K/mm3 (4.4-11.0)
[2020-09-04] MEDS: Nystatin Powder 15gm Bottle 1 APPLIC TOPICAL ×3 (05:42→22:06)
[2020-09-04] MEDS: Gabapentin 300 MG Capsule PO ×3 (05:43→22:08)
[2020-09-04 05:44] LABS: Anion Gap 7 (5-15); BUN 51 mg/dL (7-18); BUN/Creat Ratio 14.3 RATIO (10-20); Calcium,Total 8.7 mg/dL (8.5-10.1); Chloride 95 mmol/L (98-107); Creatinine, Serum 3.56 mg/dL (0.55-1.02); EST Glomerular Filtration Rate 14 mL/min (>60); Est Glom Filt Rate - Afr Amer 17 mL/min (>60); Estimated Creatinine Clearance 16.13 ml/min; Glucose 178 mg/dL (74-106); Potassium 4.3 mmol/L (3.5-5.1); Sodium Level 129 mmol/L (136-145)
[2020-09-04] MEDS: Insulin Lispro 100 UNIT/ML INSULN.PEN SC ×3 (09:15→22:05)
[2020-09-04] MEDS: Calcium Acetate 667 MG Capsule 1334 MG PO ×2 (09:16→16:19)
[2020-09-04] MEDS: Insulin Lispro 100 UNIT/ML INSULN.PEN 20 UNIT SC ×2 (09:16→16:25)
[2020-09-04] MEDS: Losartan Potassium 100 MG Tablet PO (09:19)
[2020-09-04] MEDS: Carvedilol 6.25 MG Tablet PO ×2 (09:19→22:08)
[2020-09-04] MEDS: Heparin Injection (Vial) 5,000 UNIT/ML VIAL 5000 UNIT SC ×2 (09:20→22:07)
[2020-09-04] MEDS: Magnesium Chloride 64 MG Delay Rel.Tablet 128 MG PO (09:21)
[2020-09-04] MEDS: guaiFENesin/D-Methorphan TAB.SR.12H 1 TABLET PO ×2 (09:21→22:09)
[2020-09-04] MEDS: Furosemide 40 MG Tablet PO ×2 (09:21→17:57)
[2020-09-04] MEDS: Loratadine 10 MG Tablet PO (09:23)
--- NOTE | 2020-09-04 09:28 | CASEMGMT ---
Addendum entered by Cinthya Garcia 09/04/20 10:30: Received voice mail from Lety and her fax number is [phone]. She said she will start on the pre-cert right away. ANAHY faxed all referral information to [facility]. Cinthya STUART Original Note: ANAHY spoke with patient this am. ANAHY explained the predicament we are in with finding a place for her. SW asked her if her niece has talked with her at all while she has been here. She said she has. ANAHY asked if her niece has talked with her about not being able to care for her. She said she has not. ANAHY told her SW does not think her niece is going to be able to take her back even after therapy. SW told her we need to think a little more usp. ANAHY discussed the facility in [place] that has on site dialysis. At first patient said she does not want to go that far. SW told her we may not have an option. ANAHY asked if she could re-consider. She asked how far it is and ANAHY told her it is 25 minutes from [facility]. She said she is willing to try the facility. ANAHY called Liz at [facility]. She has not heard from their transport company or patient's sister. ANAHY told her SW spoke with patient and she is willing to go to [facility]. She said the charter coordinator there is Lety. She knows they have beds and take [place]. She will talk with Lety. ANAHY asked her if by chance patient's [place] denies her would they take patient on her Medicaid. She said they would. ANAHY called Lety at [facility] and left her a voice mail requesting a return call. Their dialysis is through another company so all of the information that has been sent to [facility] would have to go to this company to review. Await return call from Lety at [facility]. Cinthya STUART
--- NOTE | 2020-09-04 10:42 | CASEMGMT ---
SW received a call from patient's niece (Urvashi). She said her mom cannot transport patient to and from dialysis 3 times a week. ANAHY told her SW is aware of this. SW told her the facility in [place] is able to take her and she will have dialysis on site. She asked how far away it was. ANAHY told her it is 25 [address] from [facility]. SW told her patient agreed to the [place] facility and we need to look more fci. SW reminded her she told SW she cannot care for patient. She said if SW sends her to [facility] in [place] they can transport her to dialysis. She said if patient starts walking with therapy at the group home maybe she can come back home with her. She asked SW if SW knew she was not walking. SW told her patient walks and she has been with therapy. She said she was not doing that at home. SW told her that is part of the reason she should stay in a facility. She goes home after rehab and doesn't do anything so she then gets weak. ANAHY told her SW has made the referral to [place] and patient was in agreement with this. Cinthya Garcia MORTGAGE BANKER NARCISO
--- NOTE | 2020-09-04 10:51 | PCM.PN.REN ---
Subjective Subjective Has no complaints no shortness of breath no chest pain Objective Data Objective Data Vital Signs: Vital Signs Temp Pulse Resp BP Pulse Ox 98.2 F 79 16 172/76 H 94 09/04/20 09:11 09/04/20 09:11 09/04/20 09:11 09/04/20 09:11 09/04/20 09:11 Oxygen Delivery Method Room Air Weight: 110 kg Body Mass Index (BMI) 43.2 Intake & Output: Intake and Output for Last 24 Hours 09/02/20 09/03/20 09/04/20 23:59 23:59 23:59 Intake Total 620 / 620 320 / 560 300 / 300 Output Total 4600 / 4600 700 / 700 Balance -3980 / -3980 320 / 560 -400 / -400 Lab / Micro Data Result Diagrams: 09/04/20 05:10 09/04/20 05:10 Labs: Laboratory Results - last 24 hr 09/02/20 09/03/20 09/03/20 18:23 11:25 17:11 WBC RBC Hgb Hct MCV MCH MCHC RDW Std Deviation RDW Coeff of Angela Plt Count MPV Immature Gran % (Auto) Neut % (Auto) Lymph % (Auto) [place] % (Auto) Eos % (Auto) Baso % (Auto) Absolute Neuts (auto) Absolute Lymphs (auto) Nucleated RBC % Sodium Potassium Chloride Carbon Dioxide Anion Gap BUN Creatinine Estim Creat Clear Calc Est GFR (MDRD) Af Amer Est GFR (MDRD) Non-Af BUN/Creatinine Ratio Glucose Calcium Hep Bs Antigen Non-Reactive POC Glucose 130 H 96 09/03/20 09/04/20 09/04/20 20:20 05:10 05:10 WBC 6.4 RBC 2.94 L Hgb 9.7 L Hct 28.9 L MCV 98.3 MCH 33.0 H MCHC 33.6 RDW Std Deviation 45.9 H RDW Coeff of Angela 12.7 Plt Count 157 MPV 10.4 Immature Gran % (Auto) 0.500 Neut % (Auto) 63.0 Lymph % (Auto) 19.3 [place] % (Auto) 11.6 H Eos % (Auto) 5.1 H Baso % (Auto) 0.5 Absolute Neuts (auto) 4.1 Absolute Lymphs (auto) 1.24 Nucleated RBC % 0 Sodium 129 L Potassium 4.3 Chloride 95 L Carbon Dioxide 27.0 Anion Gap 7 BUN 51 H Creatinine 3.56 H Estim Creat Clear Calc 16.13 Est GFR (MDRD) Af Amer 17 L Est GFR (MDRD) Non-Af 14 L BUN/Creatinine Ratio 14.3 Glucose 178 H Calcium 8.7 Hep Bs Antigen POC Glucose 240 H Micro: Microbiology 08/28/20 13:00 Interface Orders SARS-CoV-2 Antigen (Rapid) - Final Physical Exam Const alert and no apparent distress General Appearance: comfortable HEENT normocephalic Neck Neck Narrative: Left IJ tunneled dialysis catheter General: normal visual inspection and trachea midline Resp normal respiratory effort and clear to auscultation bilaterally Cardio regular rate, regular rhythm, S1 normal heart sound and S2 normal heart sound GI soft to palpation and non-tender GI Narrative: Obese Extremity Extremity Narrative: Bilateral lower extremity edema pitting Neuro Sensorium / Orientation: awake and alert Assessment & Plan Assessment/Plan (1) ESRD on hemodialysis: PLAN: Continue MWF HD schedule. Seen on dialysis tolerating well. (2) Hypertension: QUALIFIERS: Hypertension type: unspecified Qualified Code(s): I10 - Essential (primary) hypertension PLAN: well controlled.continue same BP meds (3) Edema due to hypervolemia: PLAN: Salt and fluid restriction reinforced. UF as tolerated with dialysis. (4) Anemia: QUALIFIERS: Anemia type: due to chronic kidney disease Chronic kidney disease stage: on chronic dialysis Qualified Code(s): N18.6 - End stage renal disease; D63.1 - Anemia in chronic kidney disease; Z99.2 - Dependence on renal dialysis PLAN: We will start KANDI if prolonged hospital stay. (5) Secondary renal hyperparathyroidism: PLAN: On Ca acetate . Monitor P and Ca
--- NOTE | 2020-09-04 11:30 | NURSING ---
dialysis in progress. pt accucheck 116. pt to trendelenburg to reposition up in the bed. she became diaphoretic and richards. returned to upright position w/ immediate improvement in color. she had brief episode difficulty remaining alert, stating my blood sugar. accucheck rechecked, 120. orange juice and glucerna swallowed w/out difficulty. pt returned to baseline in <5min. charge nurse aware
[2020-09-04 11:37] LABS: Bedside Glucose 163 mg/dL (70-110)
[2020-09-04 11:37] LABS: Bedside Glucose 164 mg/dL (70-110)
[2020-09-04 11:50] LABS: Bedside Glucose 117 mg/dL (70-110)
[2020-09-04 11:51] LABS: Bedside Glucose 120 mg/dL (70-110)
[2020-09-04] MEDS: Glucerna Shake 120 ML LIQUID PO ×3 (12:00→17:57)
--- NOTE | 2020-09-04 15:14 | PN.HOSP_ITS ---
Subjective Subjective Mild cough getting better. No acute change. Patient getting hemodialysis today Objective Data Objective Data Vital Signs: Vital Signs Temp Pulse Resp BP Pulse Ox 97.7 F L 72 18 127/55 H 96 09/04/20 11:58 09/04/20 11:58 09/04/20 11:58 09/04/20 11:58 09/04/20 11:58 Oxygen Delivery Method Room Air Weight: 242 lb 8.136 oz Body Mass Index (BMI) 43.2 Intake & Output: Intake and Output for Last 24 Hours 09/02/20 09/03/20 09/04/20 23:59 23:59 23:59 Intake Total 620 / 620 320 / 560 660 / 660 Output Total 4600 / 4600 1050 / 1050 Balance -3980 / -3980 320 / 560 -390 / -390 Lab / Micro Data Result Diagrams: 09/04/20 05:10 09/04/20 05:10 Labs: Laboratory Results - last 24 hr 09/03/20 09/03/20 09/04/20 17:11 20:20 05:10 WBC 6.4 RBC 2.94 L Hgb 9.7 L Hct 28.9 L MCV 98.3 MCH 33.0 H MCHC 33.6 RDW Std Deviation 45.9 H RDW Coeff of Angela 12.7 Plt Count 157 MPV 10.4 Immature Gran % (Auto) 0.500 Neut % (Auto) 63.0 Lymph % (Auto) 19.3 [place] % (Auto) 11.6 H Eos % (Auto) 5.1 H Baso % (Auto) 0.5 Absolute Neuts (auto) 4.1 Absolute Lymphs (auto) 1.24 Nucleated RBC % 0 Sodium Potassium Chloride Carbon Dioxide Anion Gap BUN Creatinine Estim Creat Clear Calc Est GFR (MDRD) Af Amer Est GFR (MDRD) Non-Af BUN/Creatinine Ratio Glucose Calcium POC Glucose 96 240 H 09/04/20 09/04/20 09/04/20 05:10 06:47 07:42 WBC RBC Hgb Hct MCV MCH MCHC RDW Std Deviation RDW Coeff of Angela Plt Count MPV Immature Gran % (Auto) Neut % (Auto) Lymph % (Auto) [place] % (Auto) Eos % (Auto) Baso % (Auto) Absolute Neuts (auto) Absolute Lymphs (auto) Nucleated RBC % Sodium 129 L Potassium 4.3 Chloride 95 L Carbon Dioxide 27.0 Anion Gap 7 BUN 51 H Creatinine 3.56 H Estim Creat Clear Calc 16.13 Est GFR (MDRD) Af Amer 17 L Est GFR (MDRD) Non-Af 14 L BUN/Creatinine Ratio 14.3 Glucose 178 H Calcium 8.7 POC Glucose 164 H 163 H 09/04/20 09/04/20 11:28 11:39 WBC RBC Hgb Hct MCV MCH MCHC RDW Std Deviation RDW Coeff of Angela Plt Count MPV Immature Gran % (Auto) Neut % (Auto) Lymph % (Auto) [place] % (Auto) Eos % (Auto) Baso % (Auto) Absolute Neuts (auto) Absolute Lymphs (auto) Nucleated RBC % Sodium Potassium Chloride Carbon Dioxide Anion Gap BUN Creatinine Estim Creat Clear Calc Est GFR (MDRD) Af Amer Est GFR (MDRD) Non-Af BUN/Creatinine Ratio Glucose Calcium POC Glucose 117 H 120 H Micro: Microbiology 08/28/20 13:00 Interface Orders SARS-CoV-2 Antigen (Rapid) - Final Physical Exam Narrative Physical exam General: Alert, Oriented x3, Cooperative HEENT: Atraumatic, PERRLA, EOMI, Normocephalic Oral: No Gingival or Mucosal Lesions/ Ulcerations Neck: Supple, No JVD, Negative Carotid Bruits Lungs: Air entry diminished in bilateral lung bases. No crepitation/rhonchi Cardiovascular: Regular rate, Regular Rhythm, Normal S1, Normal S2, No murmurs Abdomen: Bowel Sounds Present, Soft, Non Tender, abdominal distention improving. : On hemodialysis no renal angle tenderness. No suprapubic tenderness. Extremities: No significant lower extremity edema, Capillary Refill Less than 3 Seconds Skin: No rashes, No breakdown Musculoskeletal: No Tenderness to Palpation of Joints or Extremities Neurological: Cranial nerves II-XII grossly intact, Deep Tendon Reflexes 2+/4 and Symmetrical, Neuro grossly intact Psych/Mental Status: Normal Affect, Appropriate. Assessment & Plan Assessment/Plan (1) ESRD on hemodialysis: (2) Hypertension: QUALIFIERS: Hypertension type: unspecified Qualified Code(s): I10 - Essential (primary) hypertension (3) Edema due to hypervolemia: (4) Anemia: QUALIFIERS: Anemia type: due to chronic kidney disease Chronic kidney disease stage: on chronic dialysis Qualified Code(s): N18.6 - End stage renal disease; D63.1 - Anemia in chronic kidney disease; Z99.2 - Dependence on renal dialysis (5) Secondary renal hyperparathyroidism: (6) Acute on chronic diastolic CHF (congestive heart failure): PLAN: 60-year-old female with past medical history of ESRD on hemodialysis who comes in with cough-missed dialysis 1. Acute on chronic diastolic CHF secondary to missed hemodialysis, noncompliance, improved: Patient currently does not have shortness of breath. Scheduled for 4 L of fluid removal by dialysis today. Heart failure core measures including intake and output, fluid restriction less than 1500 mL, daily weight monitoring, kidney and electrolytes monitoring Admitting EKG revealed normal sinus rhythm, no acute changes. Troponin was negative. Chest x-ray unremarkable 09/03: Mucinex and Claritin for cough. 09/04: Cough better. Lungs are clear. On hemodialysis 2. Hyperkalemia, resolved with dialysis. Patient on dialysis regimen as per dental assistant teacher. 3. Hyponatremia, chronic, nephrology consulted, repeat blood work tomorrow 4. ESRD on hemodialysis, nephrology following 5. Hypertension, BP is fairly uncontrolled, Increased losartan 100 mg daily from 50 mg, Continue Coreg, Lasix and IV hydralazine as needed. 6. Rest of chronic medical conditions are stable -including type II DM, anemia of CKD, which complicates her overall care Continue to monitor blood sugars, and adjust glucose accordingly. Currently glucose is Visit Charges Inpatient E&M: 28975 Subs Hosp L2
[2020-09-04] MEDS: Heparin 10,000 UNITS/10 ML Vial 2000 UNITS IV (16:18)
[2020-09-04] MEDS: Heparin 10,000 UNITS/10 ML Vial IV (16:19)
[2020-09-04] MEDS: tiZANidine HCl 2 MG Tablet PO ×2 (16:19→23:39)
[2020-09-04 16:30] LABS: Bedside Glucose 206 mg/dL (70-110)
--- NOTE | 2020-09-04 17:46 | DIALYSIS ---
HD today uf -2000ml hypotension throughout tx
[2020-09-04] MEDS: buPROPion (XL) 300 MG TABLET.XL PO (22:08)
[2020-09-04] MEDS: Sertraline 50 MG Tablet 25 MG PO (22:08)
[2020-09-04 22:15] LABS: Bedside Glucose 258 mg/dL (70-110)
[2020-09-05 03:58] VITALS: BP 143/51; PULSE 72; RESP 15; TEMP 36.7; O2SAT 94
[2020-09-05] MEDS: Gabapentin 300 MG Capsule PO ×2 (05:23→13:01)
[2020-09-05] MEDS: Nystatin Powder 15gm Bottle 1 APPLIC TOPICAL ×2 (05:24→13:02)
[2020-09-05 05:37] LABS: Absolute Lymphocyte Count 1.16 X10^3/uL (0.83-4.51); Absolute Neutrophil Count 4.4 X10^3/uL (2.0-7.7); Basophil# 0.03 X10^3/uL; Basophil% 0.5 % (0-1); Eosinophil# 0.23 X10^3/uL; Eosinophils% 3.6 % (0-5); Hematocrit 30.4 % (37-47); Hemoglobin 10.1 g/dL (12.0-15.0); Lymphocyte # 1.16 X10^3/ul (0.83-4.51); Mean Corp Hgb Conc 33.2 g/dL (32-36); Mean Corpuscular Hgb 32.8 pg (27.0-32.0); Mean Corpuscular Volume 98.7 fL (81-99); Mean Platelet Vol. 10.6 fl (6.2-12.0); Monocyte# 0.64 X10^3/uL; Monocyte% 9.9 % (0-10); NRBC Flagged by Analyzer 0 % (0-5); Neutrophil # 4.37 X10^3/uL (2.7-7.7); Neutrophil % 67.7 % (47-70); Platelet Count 156 K/mm3 (150-450); RBC Distribution Width SD 46.5 fl (35.1-43.9); Red Blood Count 3.08 M/mm3 (4.2-5.4); White Blood Count 6.5 K/mm3 (4.4-11.0)
[2020-09-05 06:06] LABS: Anion Gap 8 (5-15); BUN 33 mg/dL (7-18); Calcium,Total 8.4 mg/dL (8.5-10.1); Chloride 93 mmol/L (98-107); Creatinine, Serum 2.74 mg/dL (0.55-1.02); EST Glomerular Filtration Rate 19 mL/min (>60); Est Glom Filt Rate - Afr Amer 23 mL/min (>60); Estimated Creatinine Clearance 20.95 ml/min; Glucose 194 mg/dL (74-106); Sodium Level 131 mmol/L (136-145)
[2020-09-05 07:51] LABS: Bedside Glucose 209 mg/dL (70-110)
[2020-09-05 09:05] VITALS: BP 139/66; PULSE 70; RESP 16; TEMP 36.7; O2SAT 97
[2020-09-05] MEDS: Insulin Lispro 100 UNIT/ML INSULN.PEN 20 UNIT SC ×3 (09:07→17:25)
[2020-09-05] MEDS: Insulin Lispro 100 UNIT/ML INSULN.PEN SC ×2 (09:07→11:17)
[2020-09-05] MEDS: Calcium Acetate 667 MG Capsule 1334 MG PO ×3 (09:08→17:25)
[2020-09-05] MEDS: Magnesium Chloride 64 MG Delay Rel.Tablet 128 MG PO (09:10)
[2020-09-05] MEDS: Furosemide 40 MG Tablet PO (09:10)
[2020-09-05] MEDS: Carvedilol 6.25 MG Tablet PO (09:10)
[2020-09-05] MEDS: Loratadine 10 MG Tablet PO (09:10)
[2020-09-05] MEDS: Heparin Injection (Vial) 5,000 UNIT/ML VIAL 5000 UNIT SC (09:10)
[2020-09-05] MEDS: Losartan Potassium 100 MG Tablet PO (09:10)
[2020-09-05] MEDS: guaiFENesin/D-Methorphan TAB.SR.12H 1 TABLET PO (09:10)
[2020-09-05] MEDS: tiZANidine HCl 2 MG Tablet PO ×2 (10:44→15:18)
[2020-09-05 11:21] LABS: Bedside Glucose 250 mg/dL (70-110)
--- NOTE | 2020-09-05 12:18 | CASEMGMT ---
ANAHY received a message from Deon with [facility]. She is covering for [facility]. She said they did get authorization to accept patient today. ANAHY called her back and let her know patient will be coming today and SW will be in touch when a time has been arranged. ANAHY notified physician and RN. ANAHY will notify patient once transport is set up. Cinthya Garcia UNIT CONTROL WORKER NARCISO
--- NOTE | 2020-09-05 13:16 | PCM.TXEXTCAR ---
Diet 08/28/20 15:17 Diet: Cardiac: Calorie-Controlled Food consistency:: Regular Liquid Consistency:: Regular/Thin How many daily calories?: 1800 calorie Diet: Renal - General Food consistency:: Regular Liquid Consistency:: Regular/Thin Routine Orders/Code Status Suppository Type: Dulcolax 10mg Suppository Frequency: Daily PRN Therapies Weight Bearing: Weight bearing as tolerated Extremity Affected:: Bilateral Lower Physical Therapy: Eval and Treat Occupational Therapy: Eval and Treat Speech Therapy: Eval and Treat Problem/Diagnosis (1) ESRD on hemodialysis: Status: Chronic (2) Hypertension: Status: Chronic (3) Edema due to hypervolemia: Status: Acute (4) Anemia: Status: Acute (5) Secondary renal hyperparathyroidism: Status: Acute (6) Acute on chronic diastolic CHF (congestive heart failure): Status: Chronic Allergies/Procedures Done in Hospital Allergies codeine phosphate [From Tylenol-Codeine #3] Allergy (Verified 08/28/20 12:08) Swelling simvastatin [From Zocor] Allergy (Verified 08/28/20 12:08) Other Type of Care/Length of Stay Estimated LOS: Convalescent Care Less Than 30 days Type of Care Needed: Skilled Rehab Potential: Good Prognosis: Good Additional Orders/Day of Discharge Day of Discharge: 09/05/20 Follow Up Care Please Follow Up With: Michael Max MD When: in 2 weeks Discharge Plan Admission Admit Date/Time: 08/28/20 14:18 Primary Reason for Your Visit: Acute on chronic diastolic CHF Attending Provider: Riley yLnne Primary Care Provider: Jase Garcia Consulting Providers: Dhara Mallory ; Rock Alejandro ; Michael Max ; Maicol Domínguez ; Esthela Street ; Bryan Power ; Thai Shankar ; Keesha Donald Instructions Patient Instructions: Heart Failure: Making Changes to Your Diet Additional Instructions / Restrictions: Continue with your medications as prescribed. Follow-up with dialysis as scheduled. Follow-up with your primary care doctor and pharmacovigilance safety expert as scheduled. Discharge Orders/Prescriptions Prescriptions: New insulin lispro [Humalog KwikPen Insulin] 100 unit/mL Insulin Pen See Protocol unit subcut ACHS Qty: 0 RF: 0 nystatin [Nyamyc] 100,000 unit/gram Powder 1 applic topical TID Qty: 0 RF: 0 Continued promethazine 25 MG tablet 25 mg PO Q8H PRN PRN (Reason: Nausea) RF: 0 carvedilol 6.25 MG tablet 6.25 mg PO BID RF: 0 nitroglycerin 0.4 MG tablet, sublingual 0.4 mg SL Q5M PRN (Reason: CHEST PAIN) RF: 0 calcium acetate(phosphat bind) 667 MG capsule 1,334 mg PO TIDCM RF: 0 bupropion HCl 300 MG tablet extended release 24 hr 300 mg PO QHS RF: 0 gabapentin 300 MG capsule 300 mg PO TID RF: 0 tizanidine 2 MG capsule 2 mg PO TID PRN PRN (Reason: muscle relaxant) RF: 0 insulin lispro 100 UNIT/ML insulin pen 20 unit subcut TIDAC Qty: 0 RF: 0 furosemide 40 mg tablet 40 mg PO BID RF: 0 sennosides [senna] 8.6 mg tablet 17.2 mg PO BID RF: 0 guaifenesin [Adult Tussin Chest Congestion] 100 mg/5 mL liquid 200 mg PO Q4H RF: 0 acetaminophen [Tylenol 8 Hour] 650 mg Tablet Extended Release 650 mg PO Q6H RF: 0 magnesium oxide 400 mg (241.3 mg magnesium) tablet 400 mg PO DAILY RF: 0 sertraline 25 mg tablet 25 mg PO QHS RF: 0 ergocalciferol (vitamin D2) 1,250 mcg (50,000 unit) capsule 50,000 unit PO TU RF: 0 Triphrocaps 1 mg capsule 1 cap PO DAILY RF: 0 letrozole 2.5 mg tablet 2.5 mg PO DAILY RF: 0 albuterol sulfate 90 mcg/actuation HFA aerosol inhaler 2 puff INHALATION Q4H PRN (Reason: sob) RF: 0 loratadine 10 mg tablet 10 mg PO DAILY RF: 0 insulin glargine 100 UNITS/ML insulin pen 27 units SC QHS RF: 0 Changed losartan 50 MG tablet 100 mg PO DAILY Qty: 0 RF: 0 Referrals / Follow Up: Jase Garcia MD [Primary Care Provider] - Within 2 Weeks Disposition Disposition (needs filled in before D/C Order can be placed): Care Home Facility
--- NOTE | 2020-09-05 13:23 | PCM.DC.SUM ---
Providers Date of Admission: 08/28/20 Primary Care Physician: Dr. Jase Garcia MD Consultations 08/28/20 15:17 Consult: Nephrology Routine Consulting Provider: [facility] [place] Reason for Consult: ESRD on dialysis EMERGENT Consult: No MD Notified: Yes Date Notified:: 08/28/20 Time Notified: 14:18 Method of Notification: Answering Service Reason For Visit: MILD ACUTE ON CHRONIC CHF / MILD HYPERKALEMIA Diagnosis Discharge Diagnosis (1) ESRD on hemodialysis: Status: Chronic Code(s): N18.6 - End stage renal disease; Z99.2 - Dependence on renal dialysis (2) Hypertension: Status: Chronic Code(s): I10 - Essential (primary) hypertension Qualifiers: Hypertension type: unspecified Qualified Code(s): I10 - Essential (primary) hypertension (3) Edema due to hypervolemia: Status: Acute Code(s): E87.70 - Fluid overload, unspecified (4) Anemia: Status: Acute Code(s): D64.9 - Anemia, unspecified Qualifiers: Anemia type: due to chronic kidney disease Chronic kidney disease stage: on chronic dialysis Qualified Code(s): N18.6 - End stage renal disease; D63.1 - Anemia in chronic kidney disease; Z99.2 - Dependence on renal dialysis (5) Secondary renal hyperparathyroidism: Status: Acute Code(s): N25.81 - Secondary hyperparathyroidism of renal origin (6) Acute on chronic diastolic CHF (congestive heart failure): Status: Chronic Code(s): I50.33 - Acute on chronic diastolic (congestive) heart failure Medications at Discharge Home Medications promethazine 25 mg PO Q8H PRN PRN 05/14/13 carvedilol 6.25 mg PO BID 08/13/19 bupropion HCl 300 mg PO QHS 12/21/19 calcium acetate(phosphat bind) 1,334 mg PO TIDCM 12/21/19 nitroglycerin 0.4 mg SL Q5M PRN 12/21/19 gabapentin 300 mg PO TID 01/19/20 tizanidine 2 mg PO TID PRN PRN 01/19/20 insulin lispro 20 unit SUBCUT TIDAC #0 01/23/20 Triphrocaps 1 cap PO DAILY 08/28/20 acetaminophen [Tylenol 8 Hour] 650 mg PO Q6H 08/28/20 albuterol sulfate 2 puff INHALATION Q4H PRN 08/28/20 ergocalciferol (vitamin D2) 50,000 unit PO TU 08/28/20 furosemide 40 mg PO BID 08/28/20 guaifenesin [Adult Tussin Chest Congestion] 200 mg PO Q4H 08/28/20 insulin glargine 27 units SC QHS 08/28/20 letrozole 2.5 mg PO DAILY 08/28/20 loratadine 10 mg PO DAILY 08/28/20 magnesium oxide 400 mg PO DAILY 08/28/20 sennosides [senna] 17.2 mg PO BID 08/28/20 sertraline 25 mg PO QHS 08/28/20 insulin lispro [Humalog KwikPen Insulin] See Protocol SUBCUT ACHS #0 ml 09/05/20 losartan 100 mg PO DAILY #0 tab 09/05/20 nystatin [Nyamyc] 1 applic TOPICAL TID #0 g 09/05/20 Hospital Course Summary of Care Provided Hospital Course: ? 60-year-old female with past medical history of ESRD on hemodialysis who comes in with cough-missed dialysis 1. Acute on chronic diastolic CHF secondary to missed hemodialysis, noncompliance, improved: Patient currently does not have shortness of breath.? Patient had dialysis while in the hospital. ? Heart failure core measures including intake and output, fluid restriction less than 1500 mL, daily weight monitoring, kidney and electrolytes monitoring Admitting EKG revealed normal sinus rhythm, no acute changes. Troponin was negative.? Chest x-ray unremarkable. Patient was treated symptomatically for cough with Mucinex and Claritin and got better. 2D echo shows EF 60% with mild diastolic dysfunction, mild aortic stenosis 2. Hyperkalemia, resolved with dialysis.? Patient on dialysis regimen as per exercise scientist. 3. Hyponatremia, chronic, nephrology consulted, repeat blood work tomorrow 4. ESRD on hemodialysis, nephrology following 5. Hypertension, BP is fairly uncontrolled, Increased losartan 100 mg daily from 50 mg, Continue Coreg, Lasix and IV hydralazine as needed. 6.? Rest of chronic medical conditions are stable -including type II DM, anemia of CKD, which complicates her overall care. Glucose was controlled. Discharge medication reconciliation done. Discharge follow-up instructions completed. Discharge process discussed with the patient and all questions were answered to patient's satisfaction. Total time spent, exact 35 minutes on discharge meds reconciliation, examination, coordination of care with nurses and ancillary staff, review of imaging and blood test and discussion with the patient on follow-up instructions Physical Exam Narrative Physical exam General: Alert, Oriented x3, Cooperative HEENT: Atraumatic, PERRLA, EOMI, Normocephalic Oral: No Gingival or Mucosal Lesions/ Ulcerations Neck: Supple, No JVD, Negative Carotid Bruits Lungs: Air entry diminished in bilateral lung bases. No crepitation/rhonchi Cardiovascular: Regular rate, Regular Rhythm, Normal S1, Normal S2, No murmurs Abdomen: Bowel Sounds Present, Soft, Non Tender, abdominal distention/ascites improved. : On hemodialysis no renal angle tenderness. No suprapubic tenderness. Extremities: No significant lower extremity edema, Capillary Refill Less than 3 Seconds Skin: No rashes, No breakdown Musculoskeletal: No Tenderness to Palpation of Joints or Extremities Neurological: Cranial nerves II-XII grossly intact, Deep Tendon Reflexes 2+/4 and Symmetrical, Neuro grossly intact Psych/Mental Status: Normal Affect, Appropriate. ABG / Lab / Microbiology Data Result Diagrams: 09/05/20 05:22 09/05/20 05:22 Laboratory: Laboratory Results - last 24 hr 09/04/20 09/04/20 09/05/20 16:25 22:03 05:22 WBC 6.5 RBC 3.08 L Hgb 10.1 L Hct 30.4 L MCV 98.7 MCH 32.8 H MCHC 33.2 RDW Std Deviation 46.5 H RDW Coeff of Angela 13.0 Plt Count 156 MPV 10.6 Immature Gran % (Auto) 0.300 Neut % (Auto) 67.7 Lymph % (Auto) 18.0 L Assumption % (Auto) 9.9 Eos % (Auto) 3.6 Baso % (Auto) 0.5 Absolute Neuts (auto) 4.4 Absolute Lymphs (auto) 1.16 Nucleated RBC % 0 Sodium Potassium Chloride Carbon Dioxide Anion Gap BUN Creatinine Estim Creat Clear Calc Est GFR (MDRD) Af Amer Est GFR (MDRD) Non-Af BUN/Creatinine Ratio Glucose Calcium POC Glucose 206 H 258 H 09/05/20 09/05/20 09/05/20 05:22 07:45 11:16 WBC RBC Hgb Hct MCV MCH MCHC RDW Std Deviation RDW Coeff of Angela Plt Count MPV Immature Gran % (Auto) Neut % (Auto) Lymph % (Auto) Assumption % (Auto) Eos % (Auto) Baso % (Auto) Absolute Neuts (auto) Absolute Lymphs (auto) Nucleated RBC % Sodium 131 L Potassium 4.0 Chloride 93 L Carbon Dioxide 30.0 Anion Gap 8 BUN 33 H Creatinine 2.74 H Estim Creat Clear Calc 20.95 Est GFR (MDRD) Af Amer 23 L Est GFR (MDRD) Non-Af 19 L BUN/Creatinine Ratio 12.0 Glucose 194 H Calcium 8.4 L POC Glucose 209 H 250 H Microbiology: Microbiology 08/28/20 13:00 Interface Orders SARS-CoV-2 Antigen (Rapid) - Final D/C Instructions Discharge Diet: Carb Control Diet and Renal Diet Discharge Activity: Return to Normal Activity Please Follow Up With: Michael Max MD Meaningful Use Info Meaningful Use Diagnoses (Choose all that apply): CHF CHF JAY/ARB ordered at discharge?: Yes Documented LVEF (%): 60 Discharge Plan Admission Admit Date/Time: 08/28/20 14:18 Primary Reason for Your Visit: Acute on chronic diastolic CHF Attending Provider: Riley Lynne Primary Care Provider: Jase Garcia Consulting Providers: Dhara Mallory ; Rock Alejandro ; Michael Max ; Maicol Domínguez ; Esthela Street ; Bryan Power ; Thai Shankar ; Keesha Donald Instructions Patient Instructions: Heart Failure: Making Changes to Your Diet Additional Instructions / Restrictions: Continue with your medications as prescribed. Follow-up with dialysis as scheduled. Follow-up with your primary care doctor and exercise scientist as scheduled. Discharge Orders/Prescriptions Prescriptions: New insulin lispro [Humalog KwikPen Insulin] 100 unit/mL Insulin Pen See Protocol unit subcut ACHS Qty: 0 RF: 0 nystatin [Nyamyc] 100,000 unit/gram Powder 1 applic topical TID Qty: 0 RF: 0 Continued promethazine 25 MG tablet 25 mg PO Q8H PRN PRN (Reason: Nausea) RF: 0 carvedilol 6.25 MG tablet 6.25 mg PO BID RF: 0 nitroglycerin 0.4 MG tablet, sublingual 0.4 mg SL Q5M PRN (Reason: CHEST PAIN) RF: 0 calcium acetate(phosphat bind) 667 MG capsule 1,334 mg PO TIDCM RF: 0 bupropion HCl 300 MG tablet extended release 24 hr 300 mg PO QHS RF: 0 gabapentin 300 MG capsule 300 mg PO TID RF: 0 tizanidine 2 MG capsule 2 mg PO TID PRN PRN (Reason: muscle relaxant) RF: 0 insulin lispro 100 UNIT/ML insulin pen 20 unit subcut TIDAC Qty: 0 RF: 0 furosemide 40 mg tablet 40 mg PO BID RF: 0 sennosides [senna] 8.6 mg tablet 17.2 mg PO BID RF: 0 guaifenesin [Adult Tussin Chest Congestion] 100 mg/5 mL liquid 200 mg PO Q4H RF: 0 acetaminophen [Tylenol 8 Hour] 650 mg Tablet Extended Release 650 mg PO Q6H RF: 0 magnesium oxide 400 mg (241.3 mg magnesium) tablet 400 mg PO DAILY RF: 0 sertraline 25 mg tablet 25 mg PO QHS RF: 0 ergocalciferol (vitamin D2) 1,250 mcg (50,000 unit) capsule 50,000 unit PO TU RF: 0 Triphrocaps 1 mg capsule 1 cap PO DAILY RF: 0 letrozole 2.5 mg tablet 2.5 mg PO DAILY RF: 0 albuterol sulfate 90 mcg/actuation HFA aerosol inhaler 2 puff INHALATION Q4H PRN (Reason: sob) RF: 0 loratadine 10 mg tablet 10 mg PO DAILY RF: 0 insulin glargine 100 UNITS/ML insulin pen 27 units SC QHS RF: 0 Changed losartan 50 MG tablet 100 mg PO DAILY Qty: 0 RF: 0 Referrals / Follow Up: Jase Garcia MD [Primary Care Provider] - Within 2 Weeks Disposition Disposition (needs filled in before D/C Order can be placed): [facility] Visit Charges Inpatient E&M: 21790 Disch Hosp
--- NOTE | 2020-09-05 13:36 | PHA.DC.MR ---
Pharmacy Service has performed discharge medication reconciliation for this patient upon transfer to [facility]. Home Medications promethazine 25 mg PO Q8H PRN PRN 05/14/13 carvedilol 6.25 mg PO BID 08/13/19 bupropion HCl 300 mg PO QHS 12/21/19 calcium acetate(phosphat bind) 1,334 mg PO TIDCM 12/21/19 nitroglycerin 0.4 mg SL Q5M PRN 12/21/19 gabapentin 300 mg PO TID 01/19/20 tizanidine 2 mg PO TID PRN PRN 01/19/20 insulin lispro 20 unit SUBCUT TIDAC #0 01/23/20 Triphrocaps 1 cap PO DAILY 08/28/20 acetaminophen [Tylenol 8 Hour] 650 mg PO Q6H 08/28/20 albuterol sulfate 2 puff INHALATION Q4H PRN 08/28/20 ergocalciferol (vitamin D2) 50,000 unit PO TU 08/28/20 furosemide 40 mg PO BID 08/28/20 guaifenesin [Adult Tussin Chest Congestion] 200 mg PO Q4H 08/28/20 insulin glargine 27 units SC QHS 08/28/20 letrozole 2.5 mg PO DAILY 08/28/20 loratadine 10 mg PO DAILY 08/28/20 magnesium oxide 400 mg PO DAILY 08/28/20 sennosides [senna] 17.2 mg PO BID 08/28/20 sertraline 25 mg PO QHS 08/28/20 insulin lispro [Humalog KwikPen Insulin] See Protocol SUBCUT ACHS #0 ml 09/05/20 losartan 100 mg PO DAILY #0 tab 09/05/20 nystatin [Nyamyc] 1 applic TOPICAL TID #0 g 09/05/20 The patient's discharge medication list was reviewed for discrepancies and discrepancies were resolved.
[2020-09-05 15:16] VITALS: BP 134/50; PULSE 71; RESP 16; TEMP 36.8; O2SAT 97
--- NOTE | 2020-09-05 15:49 | NURSING ---
This RN called report to FLORI Alonso at [facility].
--- NOTE | 2020-09-05 16:01 | CASEMGMT ---
ANAHY faxed orders and negative COVID test to [facility]. SW arranged for patient to get picked up at 4p however [facility] called back and changed it to 5p. She will go by wheelchair van. PASRR was completed on HENS as patient is observation status in the hospital. ANAHY notified RN, patient, Deon at [facility], and patient's niece Urvashi know about pick up truck driver time. All in agreement with d/c plan. Plan: d/c to [facility] on a PASRR as she is observation status in the hospital. [facility] transported her via wc van. Cinthya Garcia MARBLE FINISHER PROJECT COACH
[2020-09-05 17:30] LABS: Bedside Glucose 149 mg/dL (70-110)
== END 2020-09-05 18:41 | disposition skilled nursing facility (03) ==
LOC: ED 14:08 → PCU 15:12
PROVIDERS: Internal Medicine; Admitting Provider Hospitalist; Emergency Provider Emergency Medicine; PCP Internal Medicine; Visit Provider Internal Medicine
DX: I13.2 Hypertensive heart and chronic kidney disease with heart failure and with stage 5 chronic kidney disease, or end stage renal disease (principal); I50.33 Acute on chronic diastolic (congestive) heart failure; E87.1 Hypo-osmolality and hyponatremia; E11.22 Type 2 diabetes mellitus with diabetic chronic kidney disease; D63.1 Anemia in chronic kidney disease; N18.6 End stage renal disease; I25.10 Atherosclerotic heart disease of native coronary artery without angina pectoris; G89.29 Other chronic pain; E03.9 Hypothyroidism, unspecified; F17.200 Nicotine dependence, unspecified, uncomplicated; E87.5 Hyperkalemia; N25.81 Secondary hyperparathyroidism of renal origin; Z99.2 Dependence on renal dialysis; Z91.14 Patient's other noncompliance with medication regimen; Z91.19 Patient's noncompliance with other medical treatment and regimen; Z79.899 Other long term (current) drug therapy; Z79.4 Long term (current) use of insulin
CPT/HCPCS: 36415; 71045; 80048; 80069; 82962; 84132; 84484; 85025; 87340; 87426; 90937; 93005; 94640; 96372; 96374; 96376; 97110; 97162; 97166; 97530; 97535; 99218; 99251; 99285; J7030; A4216; G0257; G0378; G0463

== ENCOUNTER → 2020-12-05 13:57 | Outpatient (CLI) | payer MEDICARE, MEDICAID, SELFPAY ==
[2020-12-05 14:18] LABS: Hematocrit 29.4 % (37-47); Hemoglobin 9.7 g/dL (12.0-15.0); Mean Corpuscular Hgb 32.3 pg (27.0-32.0); Mean Platelet Vol. 11.1 fl (6.2-12.0); Platelet Count 151 K/mm3 (150-450); RBC Distribution Width CV 12.4 % (11.6-14.6); RBC Distribution Width SD 44.6 fl (35.1-43.9); White Blood Count 6.7 K/mm3 (4.4-11.0)
[2020-12-05 14:29] LABS: Anion Gap 9 (5-15); BUN 41 mg/dL (7-18); BUN/Creat Ratio 11.6 RATIO (10-20); Calcium,Total 8.6 mg/dL (8.5-10.1); Chloride 98 mmol/L (98-107); Creatinine, Serum 3.53 mg/dL (0.55-1.02); EST Glomerular Filtration Rate 14 mL/min (>60); Est Glom Filt Rate - Afr Amer 17 mL/min (>60); Glucose 225 mg/dL (74-106); Potassium 3.7 mmol/L (3.5-5.1); Sodium Level 131 mmol/L (136-145)
== END ==
PROVIDERS: PCP Internal Medicine; Referring Provider Surgery; Visit Provider Surgery
DX: Z01.818 Encounter for other preprocedural examination (principal); I10 Essential (primary) hypertension
CPT/HCPCS: 36415; 80048; 85027

== ENCOUNTER 2020-12-12 08:23 | Day surgery (SDC) | payer MEDICARE, MEDICAID, SELFPAY ==
[2020-10-31 14:04] VITALS: BMI 37.5
--- NOTE | 2020-12-05 14:39 | EKG12_ITS ---
Test Reason : PREOP Blood Pressure : / mmHG Vent. Rate : 078 BPM Atrial Rate : 078 BPM P-R Int : 182 ms QRS Dur : 102 ms QT Int : 392 ms P-R-T Axes : 071 000 115 degrees QTc Int : 446 ms Normal sinus rhythm Nonspecific T wave abnormality Abnormal ECG Confirmed by SHIN SANTOS, JUN ([id number]), offline editor ALANNA FIELD ([id number]) on 12/09/2020 8:30:34 AM Referred By: Laci Barth Confirmed By:JUN MELISSA MD
[2020-12-12] VITALS (11 sets, daily range): BP systolic 66–156; BP diastolic 27–80; PULSE 82–95; RESP 16–18; TEMP 36.1–36.4; O2SAT 93–100; BMI 42.6
--- NOTE | 2020-12-12 09:39 | SUR.PREOP ---
Patient has tunnelled dialysis catheter to right chest. Present on admission. Last dialysis per patient was on wednesday.
[2020-12-12 09:40] LABS: Bedside Glucose 253 mg/dL (70-110)
--- NOTE | 2020-12-12 10:10 | HP.PCM_ITS ---
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 Is patient in pain?: No Allergies codeine phosphate [From Tylenol-Codeine #3] Allergy (Verified 12/05/20 13:13) Swelling simvastatin [From Zocor] Allergy (Verified 12/05/20 13:13) Other Medications promethazine 25 mg PO Q8H PRN PRN 05/14/13 [History Confirmed 12/05/20] carvedilol 6.25 mg PO BID 08/13/19 [History Confirmed 12/05/20] bupropion HCl 300 mg PO QHS 12/21/19 [History Confirmed 12/05/20] calcium acetate(phosphat bind) 1,334 mg PO TIDCM 12/21/19 [History Confirmed 12/05/20] nitroglycerin 0.4 mg SUBLINGUAL Q5M PRN 12/21/19 [History Confirmed 12/05/20] gabapentin 300 mg PO TID 01/19/20 [History Confirmed 12/05/20] tizanidine 2 mg PO TID PRN PRN 01/19/20 [History Confirmed 12/05/20] insulin lispro 20 unit SUBCUT TIDAC #0 01/23/20 [Rx Confirmed 12/05/20] Triphrocaps 1 cap PO DAILY 08/28/20 [History Confirmed 12/05/20] acetaminophen [Tylenol 8 Hour] 650 mg PO Q6H 08/28/20 [History Confirmed 12/05/20] albuterol sulfate 2 puff INHALATION Q4H PRN 08/28/20 [History Confirmed 12/05/20] furosemide 40 mg PO BID 08/28/20 [History Confirmed 12/05/20] guaifenesin [Adult Tussin Chest Congestion] 200 mg PO Q4H PRN 08/28/20 [History Confirmed 12/05/20] insulin glargine 27 units SUBCUT QHS 08/28/20 [History Confirmed 12/05/20] letrozole 2.5 mg PO DAILY 08/28/20 [History Confirmed 12/05/20] loratadine 10 mg PO DAILY 08/28/20 [History Confirmed 12/05/20] magnesium oxide 400 mg PO DAILY 08/28/20 [History Confirmed 12/05/20] sennosides [senna] 17.2 mg PO BID 08/28/20 [History Confirmed 12/05/20] sertraline 25 mg PO QHS 08/28/20 [History Confirmed 12/05/20] insulin lispro [Humalog KwikPen Insulin] See Protocol SUBCUT ACHS #0 ml 09/05/20 [Rx Confirmed 12/05/20] losartan 100 mg PO DAILY #0 tab 09/05/20 [Rx Confirmed 12/05/20] nystatin [Nyamyc] 1 applic TOPICAL TID #0 g 09/05/20 [Rx Confirmed 12/05/20] levothyroxine 200 mcg PO DAILY 11/19/20 [History Confirmed 12/05/20] Is last menstrual period known: No Post menopausal: Yes Patient : No PFSH Medical History Back pain Breast cancer CAD (coronary artery disease) Cancer Cardiology follow-up encounter Chronic pain Depression Diabetes DM2 (diabetes mellitus, type 2) DVT (deep venous thrombosis) ESRD (end stage renal disease) History of echocardiogram History of pain when walking History of renal dialysis History of renal disease HTN (hypertension) Hypertension Hypothyroidism Injury of head and neck Insulin dependent diabetes mellitus Shortness of breath on exertion Smoker Thyroid disease VTE (venous thromboembolism) Wears glasses Surgical History History of cardiac catheterization History of heart artery stent History of right mastectomy S/P dialysis catheter insertion Family History Mother Diabetes Kidney disease CVA (cerebral vascular accident) Father Heart disease Mother Diabetes Social History Smoking Status: Current every day smoker tobacco type: cigarettes alcohol intake: never HPI HPI HPI: FÉLIX PARKINSON, is a 60 F who presents to the office today for an update history and physical. She denies any recent hospitalizations since last office visit with Dr. Barth. She denies previous cardiac history. She denies previous complications with anesthesia. She is not currently on any blood thinners. Patient's previous history per Dr. Barth: FÉLIX PARKINSON, is a 60 F who presents to the office today for surgical consultation regarding arteriovenous hemodialysis fistula creation. She states that she has been on dialysis since February 2020. Apparently she was hospitalized extensively at [facility]. She states that she has had a previous remote right mastectomy with lymph nodes done by Dr. Lloyd approximately 1995. She had a right internal jugular tunneled dialysis catheter that got infected and now she has a left internal jugular tunneled dialysis catheter. She also previously had a left IJ port that was used for chemotherapy for her breast cancer. She had COVID-19 she was hospitalized. She has been markedly debilitated. She presents in a wheelchair today. She states that as of yet she has not had any definitive discussions regarding AV fistula creation. She is right arm dominant but that is the site of her mastectomy. October 10, 2020 Reason For Study: ESRD Right Arm Left Arm Right Cephalic Vein at the wrist measures Left Cephalic Vein at the wrist measures 0.12 x 0.12 cm. .17 x 0.18 cm. Right Cephalic Vein in the forearm measures Left Cephalic Vein in the forearm measures 0.09 x 0.09 cm. 0.19 x 0.20 cm. Right Cephalic Vein below antecub measures Left Cephalic Vein below antecub measures 0.14 x 0.14 cm. 0.14 x 0.13 cm. Right Cephalic Vein above antecub measures Left Cephalic Vein above antecub measures 0.21 x 0.21 cm. 0.16 x 0.16 cm. Right Cephalic Vein mid bicep measures 0.22 Left Cephalic Vein at mid bicep measures x 0.21 cm. 0.12 x 0.11 cm. Right Cephalic Vein at the shoulder measures Left Cephalic Vein at the shoulder measures 0.19 x 0.19 cm. 0.11 x 0.12 cm. Right Basilic Vein at the origin measures Basilic vein at origin measures 0.17x 0.17 0.26 x 0.26 cm. cm. Right Basilic Vein mid bicep measures 0.23 x Basilic vein at bicep measures 0.12 x 0.14 0.24 cm. cm. Right Basilic Vein above antecub measures Basilic vein above antecub measures 0.20 x 0.20 x 0.20 cm. 0.20 cm. Right Brachial artery measures 0.41 x 0.41 Left Brachial artery measures 0.36 x 0.37 cm cm with a velocity of 90.8 cm/sec. with a velocity of 85.6 cm/sec. Right Radial artery measures 0.13 x 0.13 cm Left Radial artery measures 0.12 x 0.13 cm with a velocity of 79 cm/sec. with a velocity of 34.6 cm/sec. VL/Saphenous Vein Mapping, Bilat Interpretation Summary Patent and compressible bilateral upper extremity cephalic and basilic veins. It is of note that bilateral cephalic and basilic veins are distinctly small in caliber. Small bilateral radial arteries with normal flow Normal bilateral brachial artery and flow rates Ordering Physician: Keesha Donald Referring Physician: Jase Garcia Performed By: Genna Vera RVT ? 10/10/20 [id number] Laci Barth MD ROS General General: Yes fatigue and breast cancer; No weight change, appetite, colon cancer or weakness HEENT HEENT: Yes difficulty swallowing, eye injury and eye surgery; No swollen glands or hoarseness Endo Endocrine: Yes diabetes mellitus; No thyroid disease, thyroid cancer, Hair loss, heat intolerance or cold intolerance Skin Skin: No rash or changing moles Breast Breast: No left breast lump, right breast lump, nipple discharge, breast pain, abnormal mammogram, abnormal US or breast enlargement Musc Musculoskeletal: Yes back problems; No arthritis, rheumatoid arthritis, gout or joint pain Cardio Cardiovascular: Yes heart disease, high blood pressure, heart attack and heart stent; No murmur, pacemaker, atrial fibrillation, palpitations, shortness of breat with exertion or chest pain Psych Psychiatric: Yes depression and anxiety; No hearing voices Resp Respiratory: Yes shortness of breath, No sleep apnea, No cough, No COPD, No asthma, No emphysema and No wheezing Gastro Gastrointestinal: No abdominal pain, No nausea or vomiting, No diarrhea, Yes constipation, No blood in stool, No acid reflux, No hemorrhoids, No ulcers, No gallbladder problem and No black,tarry stools Otto Hematologic: No blood thinners, No blood disorders, No bleeding, No anemia and No blood clots Neuro Neurologic: No system reviewed and no additional complaints, except as documented, No as per HPI, No abnormal gait, No abnormal hearing, No abnormal movements, No abnormal speech, No behavioral changes, No burning sensations, No confusion, No convulsions, No disequilibrium, No dizziness, No localized weakness, No frequent falls, No headache(s), No lack of coordination, No loss of vision, No memory loss, Yes numbness, No other visual disturbances, No radicular pain, No restless legs, No sensory deficit, No syncope, Yes tingling, No tremor(s), No weakness and No other Exam Const General: cooperative, healthy appearing, comfortable and no acute distress [facility] Head: normal to inspection Eyes General: appearance normal, both eyes and all related structures Neck Neck: normal visual inspection Neck mass: No Resp Effort & Inspection: normal respiratory effort Auscultation: clear to auscultation bilaterally Cardio Rate: regular rate Rhythm: regular rhythm GI Inspection: normal to inspection and obesity Palpation: soft Auscultation: normal bowel sounds Skin General: no rashes or lesions noted Other: Left chest tunneled dialysis catheters intact Neuro General: no focal motor deficits Extrem General: normal to inspection Psych Appearance: grossly normal Affect: normal affect Assessment and Plan Assessment and Plan (1) ESRD on hemodialysis: Status: Chronic Plan - Deedee ORO, PAGinaC: Dr. Barth will plan to perform a stage I left upper extremity brachiobasilic AV fistula creation. Procedure details, risks and benefits have been explained. Patient verbally understands and agrees with the plan. Patient has had the opportunity to ask and have questions answered. Restrictive band was applied to the left wrist of the patient. Coding Level of Care Code No Charge Diagnoses ESRD on hemodialysis N18.6; Z99.2 I have re-examined the patient. There are no clinical changes since date of exam.
[2020-12-12] MEDS: Heparin Injection (Vial) 5,000 UNIT/ML VIAL 5000 UNIT (11:01)
[2020-12-12] MEDS: Lidocaine 1% (30 ml sdv) 30 ML Vial (11:01)
[2020-12-12] MEDS: Bupivacaine Mpf 0.5% 30 ML VIAL (11:01)
--- NOTE | 2020-12-12 11:49 | PCM.OPRPT ---
Problems Associated Problem List Diagnoses (1) ESRD on hemodialysis: Report of Operation Date of Procedure: 12/12/20 Pre-Operative Diagnosis: Stage V chronic renal insufficiency on hemodialysis via dialysis catheters Post-Operative Diagnosis: Same Surgery/Procedure Performed:: Stage I left upper extremity basilic vein to brachial artery arteriovenous hemodialysis fistula creation Description of Surgical Findings:: Timeout and informed consent was obtained. Patient was taken to the operating placement table underwent monitored anesthesia care. The left extremity was sterilely prepped and draped. A total of 8 cc of 1% lidocaine mixed 50-50 with 0.5% Marcaine was used as local anesthetic. Ultrasound was used to map a branch of the basilic vein. Local was instilled that antecubital branch was dissected free. The brachial artery was identified. Circumferential control was obtained. The vein was ligated distally with a Hemoclip and there was spatulated. Patient received 10,000 is heparin intravenously. Peripheral vascular labs were applied. 11 blade was used to make an arteriotomy with extended with Campos scissors. The vein was spatulated. And a side anastomosis was created with running 7-0 Prolene. Prior to completion there appeared adequate antegrade and retrograde flow. Anastomosis was completed. Using Doppler there was audible flow. The hand appeared to be viable. Ulnar pulses seem to be better than radial pulses. Hemostasis appeared to be intact. The wound was closed with deep layer of interrupted 3-0 Vicryl and then a running septic or 4 Monocryl. Steri-Strips Telfa OpSite dressing applied. Sponge and instrument and needle counts were reported to certainly be correct. Blood loss was minimal. She was taken to the recovery area in status condition operative complication. Specimen none. Drains none. Blood loss minimal. Laci Barth M.D., F.A.C.S. Surgeon: Laci Barth Type of Anesthesia: Local MAC Anesthesiologist: Erick Nice
--- NOTE | 2020-12-12 12:00 | EX.PCM.DISCH ---
Discharge Instructions Procedure Fistula Diet Discharge Diet: Renal Diet Activity Discharge Activity: May Not Drive (for 2-3 days or while taking narcotic pain medications.), May Shower and May Take a Tub Bath (in 5 days.) Lifting Restrictions: 5 pounds Keep extremity elevated above heart level: - (Keep arm elevated above the heart level for 3 days.) Dressing / Incision Call your doctor if your incision/area has: Continuous Slow Oozing, Sudden Increased Bleeding (apply pressure and call your doctor.), Increased Pain/ Swelling, Increased Redness and Foul Smelling Discharge Call your doctor if you observe: Fever of 101 or Higher Suture Line Care: Avoid Pulling/Pushing and Avoid Pinching/Bending Cleanse incision/area with: Keep Dressing Clean & Dry Additional Dressing/Incision Instructions:: Change or remove dressing in one day. May protect with a gauze bandaid. Follow Up Care Please Follow Up With: Laci Barth MD When: Call [phone] to make an appointment for suture removal and follow up in 1 week. Test Results: Test results from this visit will be discussed in further detail at your follow-up appointment, if applicable. Discharge Plan Admission Primary Reason for Your Visit: Need for arteriovenous hemodialysis fistula creation for hemodialysis Attending Provider: Laci Barth Primary Care Provider: Iban Eldridge Discharge Orders/Prescriptions Prescriptions: New hydrocodone-acetaminophen 5-325 mg tablet 1 tab PO Q8H PRN (Reason: pain) 2 Days Qty: 5 RF: 0 Continued promethazine 25 MG tablet 25 mg PO Q8H PRN PRN (Reason: Nausea) RF: 0 carvedilol 6.25 MG tablet 6.25 mg PO BID RF: 0 nitroglycerin 0.4 MG tablet, sublingual 0.4 mg sublingual Q5M PRN (Reason: CHEST PAIN) RF: 0 calcium acetate(phosphat bind) 667 MG capsule 1,334 mg PO TIDCM RF: 0 bupropion HCl 300 MG tablet extended release 24 hr 300 mg PO QHS RF: 0 gabapentin 300 MG capsule 300 mg PO TID RF: 0 tizanidine 2 MG capsule 2 mg PO TID PRN PRN (Reason: muscle relaxant) RF: 0 insulin lispro 100 UNIT/ML insulin pen 20 unit subcut TIDAC Qty: 0 RF: 0 furosemide 40 mg tablet 40 mg PO BID RF: 0 sennosides [senna] 8.6 mg tablet 17.2 mg PO BID RF: 0 guaifenesin [Adult Tussin Chest Congestion] 100 mg/5 mL liquid 200 mg PO Q4H PRN (Reason: Cough) RF: 0 acetaminophen [Tylenol 8 Hour] 650 mg Tablet Extended Release 650 mg PO Q6H RF: 0 magnesium oxide 400 mg (241.3 mg magnesium) tablet 400 mg PO DAILY RF: 0 sertraline 25 mg tablet 25 mg PO QHS RF: 0 Triphrocaps 1 mg capsule 1 cap PO DAILY RF: 0 letrozole 2.5 mg tablet 2.5 mg PO DAILY RF: 0 albuterol sulfate 90 mcg/actuation HFA aerosol inhaler 2 puff INHALATION Q4H PRN (Reason: sob) RF: 0 loratadine 10 mg tablet 10 mg PO DAILY RF: 0 insulin glargine 100 UNITS/ML insulin pen 27 units subcut QHS RF: 0 insulin lispro [Humalog KwikPen Insulin] 100 unit/mL Insulin Pen See Protocol unit subcut ACHS Qty: 0 RF: 0 nystatin [Nyamyc] 100,000 unit/gram Powder 1 applic topical TID Qty: 0 RF: 0 losartan 50 MG tablet 100 mg PO DAILY Qty: 0 RF: 0 levothyroxine 200 mcg tablet 200 mcg PO DAILY RF: 0 Referrals / Follow Up: Iban Eldridge MD [Primary Care Provider] -
[2020-12-12] MEDS: HYDROcodone Bitartrate/Apap 5/325 Tablet PO (13:15)
== END 2020-12-12 14:43 ==
LOC: SDC 08:24 → AC 08:27
PROVIDERS: PCP Family Medicine; Referring Provider Surgery; Visit Provider Surgery
PROC: (CPT 36821; principal; 2020-12-12 10:30)
DX: Z49.01 Encounter for fitting and adjustment of extracorporeal dialysis catheter (principal); N18.6 End stage renal disease; I50.32 Chronic diastolic (congestive) heart failure; N25.81 Secondary hyperparathyroidism of renal origin; I25.10 Atherosclerotic heart disease of native coronary artery without angina pectoris; E11.22 Type 2 diabetes mellitus with diabetic chronic kidney disease; I13.2 Hypertensive heart and chronic kidney disease with heart failure and with stage 5 chronic kidney disease, or end stage renal disease; Z79.4 Long term (current) use of insulin; Z79.899 Other long term (current) drug therapy; Z86.718 Personal history of other venous thrombosis and embolism; F32.9 Major depressive disorder, single episode, unspecified; E03.9 Hypothyroidism, unspecified; F17.210 Nicotine dependence, cigarettes, uncomplicated
CPT/HCPCS: 01844; 36821; 82962; 93005; J7040; J2405

== ENCOUNTER 2020-12-25 19:03 | Observation (INO) | payer MEDICARE, MEDICAID, SELFPAY ==
[2020-12-25 19:04] VITALS: BP 145/65; PULSE 88; RESP 18; TEMP 36.9; O2SAT 98; BMI 96.5
--- NOTE | 2020-12-25 20:30 | EKG12_ITS ---
Test Reason : EDEMA Blood Pressure : / mmHG Vent. Rate : 090 BPM Atrial Rate : 090 BPM P-R Int : 158 ms QRS Dur : 092 ms QT Int : 366 ms P-R-T Axes : 046 017 -29 degrees QTc Int : 447 ms Normal sinus rhythm Low voltage QRS (Limb Leads) Confirmed by MARLENI SANTOS, RUSTAM ([id number]), news videotape editor ALANNA FIELD ([id number]) on 12/30/2020 12:44:03 PM Referred By: THERESA Confirmed By:RUSTAM YEPEZ MD
--- NOTE | 2020-12-25 20:33 | EDS_ITS ---
HPI History of Present Illness Chief Complaint: Edema Detail of Chief Complaint: Diffuse edema over the last 3 to 4 days Informant: patient Narrative Narrative: Patient presents to the emergency department complaining of water weight gain over the last 3 to 4 days and she has gained about 10 to 15 pounds. Patient is a dialysis patient who did not go to dialysis today because she felt like she needed to come to the hospital and be admitted. Patient states oftentimes when she gets this way she is admitted and has dialysis daily for 3 to 4 days. She denies any chest pain. Patient denies any fevers. Prior similar symptoms: Yes PFSH PFSH Medical History Back pain Breast cancer CAD (coronary artery disease) Cancer Cardiology follow-up encounter Chronic pain Depression Diabetes DM2 (diabetes mellitus, type 2) DVT (deep venous thrombosis) ESRD (end stage renal disease) History of echocardiogram History of pain when walking History of renal dialysis History of renal disease HTN (hypertension) Hypertension Hypothyroidism Injury of head and neck Insulin dependent diabetes mellitus Shortness of breath on exertion Smoker Thyroid disease VTE (venous thromboembolism) Wears glasses Home Medications promethazine 25 mg PO Q8H PRN PRN 05/14/13 [History Last Taken Unknown] carvedilol 6.25 mg PO BID 08/13/19 [History Last Taken 08/27/20] bupropion HCl 300 mg PO QHS 12/21/19 [History Last Taken 08/27/20] calcium acetate(phosphat bind) 1,334 mg PO TIDCM 12/21/19 [History Last Taken 08/27/20] nitroglycerin 0.4 mg SUBLINGUAL Q5M PRN 12/21/19 [History Last Taken Unknown] gabapentin 300 mg PO TID 01/19/20 [History Last Taken 08/27/20] tizanidine 2 mg PO TID PRN PRN 01/19/20 [History Last Taken Unknown] insulin lispro 20 unit SUBCUT TIDAC #0 01/23/20 [Rx Last Taken 08/27/20] Triphrocaps 1 cap PO DAILY 08/28/20 [History Last Taken 08/27/20] acetaminophen [Tylenol 8 Hour] 650 mg PO Q6H 08/28/20 [History Last Taken 08/27/20] albuterol sulfate 2 puff INHALATION Q4H PRN 08/28/20 [History Last Taken 08/27/20] furosemide 40 mg PO BID 08/28/20 [History Last Taken 08/27/20] guaifenesin [Adult Tussin Chest Congestion] 200 mg PO Q4H PRN 08/28/20 [History Last Taken Unknown] insulin glargine 27 units SUBCUT QHS 08/28/20 [History Last Taken 08/27/20] letrozole 2.5 mg PO DAILY 08/28/20 [History Last Taken 08/27/20] loratadine 10 mg PO DAILY 08/28/20 [History Last Taken 08/27/20] magnesium oxide 400 mg PO DAILY 08/28/20 [History Last Taken 08/27/20] sennosides [senna] 17.2 mg PO BID 08/28/20 [History Last Taken 08/27/20] sertraline 25 mg PO QHS 08/28/20 [History Last Taken 08/27/20] insulin lispro [Humalog KwikPen Insulin] See Protocol SUBCUT ACHS #0 ml 09/05/20 [Rx Last Taken Unknown] losartan 100 mg PO DAILY #0 tab 09/05/20 [Rx Last Taken 08/27/20] nystatin [Nyamyc] 1 applic TOPICAL TID #0 g 09/05/20 [Rx Last Taken Unknown] levothyroxine 200 mcg PO DAILY 11/19/20 [History Last Taken Unknown] hydrocodone-acetaminophen 1 tab PO Q8H PRN 2 Days #5 tab 12/12/20 [Rx Last Taken Unknown] Allergy/AdvReac Type Severity Reaction Status Date / Time codeine phosphate Allergy Swelling Verified 12/12/20 09:10 [From Tylenol-Codeine #3] simvastatin [From Zocor] Allergy Other Verified 12/12/20 09:10 Family History Mother Diabetes Kidney disease CVA (cerebral vascular accident) Father Heart disease Mother Diabetes Surgical History History of cardiac catheterization History of heart artery stent History of right mastectomy S/P dialysis catheter insertion Social History Smoking Status: Current every day smoker tobacco type: cigarettes alcohol intake: never ROS ROS ED ROS Narrative Edema that is generalized Constitutional Constitutional ED: Reports systems reviewed and no addt'l complaints, except as documented; Denies body ache(s), change in weight or chills Eyes Eyes: Denies acute decrease in peripheral vision, change in vision, double vision or loss of vision ENT ENT ED: Reports none; Denies ear pain, lip swelling, loss taste/smell, neck pain, otalgia or sore throat Cardiovascular Cardiovascular: Reports none; Denies abdominal pain, chest pain with activity, leg edema, lightheadedness, palpitations, rapid heart rate or syncope Respiratory/Chest Respiratory/Chest: Reports none and dyspnea; Denies change in mental status, dry cough, hemoptysis, shortness of breath at rest or shortness of breath with exertion Gastrointestinal Gastrointestinal: Reports none; Denies abdominal pain, change in stool character, diarrhea, hematemesis, hematochezia, melena, rectal bleeding or vomiting Genitourinary Genitourinary ED: Reports none; Denies abdominal discomfort, anuria, dysuria, genital pain or polyuria Musculoskeletal Musculoskeletal: Reports none; Denies arthralgias, back pain, difficulty walking, extremity pain, muscle weakness or myalgias Integumentary Reports none; Denies abscess or rash Neurologic Neurologic: Reports none; Denies abnormal gait, confusion, focal weakness, frequent falls, headache(s), loss of vision, numbness, paresthesias, radicular pain, vertigo or weakness Psychiatric Psychiatric: Reports systems reviewed and no addt'l complaints, except as documented and none; Denies behavioral changes, confusion, difficulty concentrating, hallucinations, suicidal ideation, tactile hallucinations or visual hallucinations Endocrine Endocrinology: Denies none, cold intolerance, excessive sweating, fatigue or heat intolerance Hematologic/Lymphatic Hematologic/Lymphatic: Reports none; Denies anemia, easy bleeding or easy bruising Allergic/Immunologic Allergic/Immunologic ED: Denies as per HPI, none, lip swelling, mouth swelling, throat swelling, tongue swelling or hives EXAM Physical Exam Const Vital Signs: 12/25/20 19:04 12/25/20 19:47 Temperature 98.4 F Temperature Source Temporal Pulse Rate 88 Respiratory Rate 18 Respiratory Pattern Normal Blood Pressure 145/65 H Blood Pressure Mean 91 Pulse Ox 98 Oxygen Delivery Method Room Air Positive well nourished and well developed General Appearance ED: well developed and NAD HEENT Reports TM's clear and moist mucous membranes normocephalic and atraumatic; Negative for trauma or tenderness Tympanic Membrane ED: Yes TM's clear Eyes PERRL and EOMs intact bilaterally General Eye ED: Negative for pale conjunctiva or scleral icterus Neck no lymphadenopathy, supple and no JVD General: Negative for tenderness Chest Wall inspection of chest normal and palpation of chest normal Chest: Negative for tenderness Resp normal respiratory effort Resp Narrative: Patient has few rales in the bases noted. Mild conversational dyspnea. No extensor muscles or retractions. Effort and Inspection: Negative for respiratory distress or pain with movement Auscultation: rales; Negative for rhonchi, wheezes or diminished lung sounds Cardio regular rate, regular rhythm, S1 normal heart sound, S2 normal heart sound and no murmurs Peripheral Pulses: pulses 2+ throughout GI normal to inspection, nondistended, normoactive bowel sounds, soft to palpation, non-tender, non-distended and no masses Back/Spine no CVA tenderness and no thoracic nor lumbar tenderness Extremity normal to inspection Extremity Narrative: +1 edema both lower extremities. General Extremety ED: Yes edema General Extremity: edema Neuro oriented x3, CN's II-XII intact bilaterally, no sensory deficits noted and gait normal Sensorium / Orientation: awake, alert, oriented to person, oriented to place and oriented to time Motor Exam: strength 5/5 throughout and strength abnormal Psych mental status grossly normal Skin no rashes or lesions noted and no wounds MDM MDM MDM Narrative Medical decision making narrative: Case discussed with hospitalist will evaluate patient for admission for dialysis. Patient states that her dialysis center is not open on which is tomorrow. Lab Data Attestation: I reviewed the patient's lab results. Labs: Laboratory Results - last 24 hr 12/25/20 12/25/20 12/25/20 21:01 21:01 21:01 WBC 7.9 RBC 3.05 L Hgb 10.1 L Hct 30.1 L MCV 98.7 MCH 33.1 H MCHC 33.6 RDW Std Deviation 45.3 H RDW Coeff of Angela 12.5 Plt Count 163 MPV 10.9 Immature Gran % (Auto) 0.500 Neut % (Auto) 72.8 H Lymph % (Auto) 14.0 L [place] % (Auto) 8.0 Eos % (Auto) 4.3 Baso % (Auto) 0.4 Absolute Neuts (auto) 5.8 Absolute Lymphs (auto) 1.11 Nucleated RBC % 0 Sodium 129 L Potassium 4.9 Chloride 97 L Carbon Dioxide 27.0 Anion Gap 5 BUN 43 H Creatinine 3.77 H Estim Creat Clear Calc 14.05 Est GFR (MDRD) Af Amer 16 L Est GFR (MDRD) Non-Af 13 L BUN/Creatinine Ratio 11.4 Glucose 286 H Calcium 8.2 L B-Natriuretic Peptide 446.9 H Radiography Chest X-Ray - ED: 1 View Diagnostic Testing: Radiology Impression Chest X-Ray 12/25/20 21:20 IMPRESSION: No acute radiographic abnormalities. Electronically Signed: Hank Espitia MD at 22:03 EDT Tel , Service support , 1 view chest x-ray obtained interpreted by myself as no acute disease process. EKG Initial EKG: Attestation: I personally reviewed and interpreted this EKG as follows: Comments: Sinus rhythm with a ventricular rate of 90 bpm with no acute ST segment changes. Discharge Plan Triage Chief Complaint: Edema ED Provider: Bertin Bradshaw Dx/Rx/DC Orders Clinical Impression: Chronic kidney disease with end stage renal failure on dialysis, Hyponatremia, Type 2 diabetes mellitus, Edema due to hypervolemia Prescriptions: No Action promethazine 25 MG tablet 25 mg PO Q8H PRN PRN (Reason: Nausea) RF: 0 carvedilol 6.25 MG tablet 6.25 mg PO BID RF: 0 nitroglycerin 0.4 MG tablet, sublingual 0.4 mg sublingual Q5M PRN (Reason: CHEST PAIN) RF: 0 calcium acetate(phosphat bind) 667 MG capsule 1,334 mg PO TIDCM RF: 0 bupropion HCl 300 MG tablet extended release 24 hr 300 mg PO QHS RF: 0 gabapentin 300 MG capsule 300 mg PO TID RF: 0 tizanidine 2 MG capsule 2 mg PO TID PRN PRN (Reason: muscle relaxant) RF: 0 insulin lispro 100 UNIT/ML insulin pen 20 unit subcut TIDAC Qty: 0 RF: 0 furosemide 40 mg tablet 40 mg PO BID RF: 0 sennosides [senna] 8.6 mg tablet 17.2 mg PO BID RF: 0 guaifenesin [Adult Tussin Chest Congestion] 100 mg/5 mL liquid 200 mg PO Q4H PRN (Reason: Cough) RF: 0 acetaminophen [Tylenol 8 Hour] 650 mg Tablet Extended Release 650 mg PO Q6H RF: 0 magnesium oxide 400 mg (241.3 mg magnesium) tablet 400 mg PO DAILY RF: 0 sertraline 25 mg tablet 25 mg PO QHS RF: 0 Triphrocaps 1 mg capsule 1 cap PO DAILY RF: 0 letrozole 2.5 mg tablet 2.5 mg PO DAILY RF: 0 albuterol sulfate 90 mcg/actuation HFA aerosol inhaler 2 puff INHALATION Q4H PRN (Reason: sob) RF: 0 loratadine 10 mg tablet 10 mg PO DAILY RF: 0 insulin glargine 100 UNITS/ML insulin pen 27 units subcut QHS RF: 0 insulin lispro [Humalog KwikPen Insulin] 100 unit/mL Insulin Pen See Protocol unit subcut ACHS Qty: 0 RF: 0 nystatin [Nyamyc] 100,000 unit/gram Powder 1 applic topical TID Qty: 0 RF: 0 losartan 50 MG tablet 100 mg PO DAILY Qty: 0 RF: 0 levothyroxine 200 mcg tablet 200 mcg PO DAILY RF: 0 hydrocodone-acetaminophen 5-325 mg tablet 1 tab PO Q8H PRN (Reason: pain) 2 Days Qty: 5 RF: 0 Primary Care Provider: Iban Eldridge Referrals: Iban Eldridge MD [Primary Care Provider] - Disposition Disposition: Acute Care Hospital [facility]
[2020-12-25] MEDS: oxyCODONE 5 MG Tablet PO (20:48)
[2020-12-25 21:15] LABS: Absolute Lymphocyte Count 1.11 X10^3/uL (0.83-4.51); Absolute Neutrophil Count 5.8 X10^3/uL (2.0-7.7); Basophil# 0.03 X10^3/uL; Basophil% 0.4 % (0-1); Eosinophil# 0.34 X10^3/uL; Eosinophils% 4.3 % (0-5); Hematocrit 30.1 % (37-47); Hemoglobin 10.1 g/dL (12.0-15.0); Lymphocyte # 1.11 X10^3/ul (0.83-4.51); Mean Corp Hgb Conc 33.6 g/dL (32-36); Mean Corpuscular Hgb 33.1 pg (27.0-32.0); Mean Corpuscular Volume 98.7 fL (81-99); Mean Platelet Vol. 10.9 fl (6.2-12.0); Monocyte# 0.63 X10^3/uL; NRBC Flagged by Analyzer 0 % (0-5); Neutrophil # 5.76 X10^3/uL (2.7-7.7); Neutrophil % 72.8 % (47-70); Platelet Count 163 K/mm3 (150-450); RBC Distribution Width CV 12.5 % (11.6-14.6); RBC Distribution Width SD 45.3 fl (35.1-43.9); Red Blood Count 3.05 M/mm3 (4.2-5.4); White Blood Count 7.9 K/mm3 (4.4-11.0)
--- NOTE | 2020-12-25 21:20 | RAD_ITS ---
INDICATION: dyspnea EXAMINATION/TECHNIQUE: X-RAY - XR Chest 1 View COMPARISON: 08/28/2020. FINDINGS: The lungs are clear. The cardiomediastinal silhouette is unremarkable. Persistent elevation the right hemidiaphragm. Left-sided hemodialysis catheter. No pleural effusion or pneumothorax. Degenerative changes of the thoracic spine. RAD/Chest 1 View (Portable) IMPRESSION: No acute radiographic abnormalities. Electronically Signed: Hank Espitia MD at 22:03 EDT Tel , Service support ,
[2020-12-25 21:25] LABS: Anion Gap 5 (5-15); BUN 43 mg/dL (7-18); BUN/Creat Ratio 11.4 RATIO (10-20); Calcium,Total 8.2 mg/dL (8.5-10.1); Chloride 97 mmol/L (98-107); Creatinine, Serum 3.77 mg/dL (0.55-1.02); EST Glomerular Filtration Rate 13 mL/min (>60); Est Glom Filt Rate - Afr Amer 16 mL/min (>60); Estimated Creatinine Clearance 14.05 ml/min; Glucose 286 mg/dL (74-106); Potassium 4.9 mmol/L (3.5-5.1); Sodium Level 129 mmol/L (136-145)
[2020-12-25 21:36] LABS: BNP,B-Type NATRIURETIC PEPTIDE 446.9 pg/mL (0-100)
[2020-12-25 22:40] VITALS: BP 150/63; PULSE 104; RESP 18; TEMP 36.1; O2SAT 95
[2020-12-25 23:04] VITALS: BP 150/63; PULSE 104; RESP 18; TEMP 36.1; O2SAT 95
--- NOTE | 2020-12-25 23:05 | ED.RN ---
two attempts to start iv, no success, blood was obtained. Dr. Bradshaw informed of same.
--- NOTE | 2020-12-25 23:30 | HP.PCM.HOS_ITS ---
HPI - General General Date of Admission: 12/25/20 HPI Narrative FÉLIX PARKINSON, is a 60 F who presents to the hospital because she did not go to dialysis. She was to go to dialysis today but she felt swollen so she thought she should come to the ER. It is a little bit confusing as to s pecifically why she came versus not going to dialysis, she states that somebody at dialysis told her to go to the hospital. She says that she was feeling short of breath but she is maintaining her oxygen saturation on room air. She has no abnormal labs compared to her baseline, she is always hyponatremic and her creatinine is also at baseline. No significant swelling, and in the ER initially attempted to discharge her home but she was worried because she does not do dialysis on and feels like she might need dialysis today which is her dialysis day to begin with. Chest x-ray was unremarkable. [facility] Medical History Back pain Breast cancer CAD (coronary artery disease) Cancer Cardiology follow-up encounter Chronic pain Depression Diabetes DM2 (diabetes mellitus, type 2) DVT (deep venous thrombosis) ESRD (end stage renal disease) History of echocardiogram History of pain when walking History of renal dialysis History of renal disease HTN (hypertension) Hypertension Hypothyroidism Injury of head and neck Insulin dependent diabetes mellitus Shortness of breath on exertion Smoker Thyroid disease VTE (venous thromboembolism) Wears glasses Home Medications promethazine 25 mg PO Q8H PRN PRN 05/14/13 [History Last Taken Unknown] carvedilol 6.25 mg PO BID 08/13/19 [History Last Taken 08/27/20] bupropion HCl 300 mg PO QHS 12/21/19 [History Last Taken 08/27/20] calcium acetate(phosphat bind) 1,334 mg PO TIDCM 12/21/19 [History Last Taken 08/27/20] nitroglycerin 0.4 mg SUBLINGUAL Q5M PRN 12/21/19 [History Last Taken Unknown] gabapentin 300 mg PO TID 01/19/20 [History Last Taken 08/27/20] tizanidine 2 mg PO TID PRN PRN 01/19/20 [History Last Taken Unknown] insulin lispro 20 unit SUBCUT TIDAC #0 01/23/20 [Rx Last Taken 08/27/20] Triphrocaps 1 cap PO DAILY 08/28/20 [History Last Taken 08/27/20] acetaminophen [Tylenol 8 Hour] 650 mg PO Q6H 08/28/20 [History Last Taken 08/27/20] albuterol sulfate 2 puff INHALATION Q4H PRN 08/28/20 [History Last Taken 08/27/20] furosemide 40 mg PO BID 08/28/20 [History Last Taken 08/27/20] guaifenesin [Adult Tussin Chest Congestion] 200 mg PO Q4H PRN 08/28/20 [History Last Taken Unknown] insulin glargine 27 units SUBCUT QHS 08/28/20 [History Last Taken 08/27/20] letrozole 2.5 mg PO DAILY 08/28/20 [History Last Taken 08/27/20] loratadine 10 mg PO DAILY 08/28/20 [History Last Taken 08/27/20] magnesium oxide 400 mg PO DAILY 08/28/20 [History Last Taken 08/27/20] sennosides [senna] 17.2 mg PO BID 08/28/20 [History Last Taken 08/27/20] sertraline 25 mg PO QHS 08/28/20 [History Last Taken 08/27/20] insulin lispro [Humalog KwikPen Insulin] See Protocol SUBCUT ACHS #0 ml 09/05/20 [Rx Last Taken Unknown] losartan 100 mg PO DAILY #0 tab 09/05/20 [Rx Last Taken 08/27/20] levothyroxine 200 mcg PO DAILY 11/19/20 [History Last Taken Unknown] Allergy/AdvReac Type Severity Reaction Status Date / Time codeine phosphate Allergy Swelling Verified 12/12/20 09:10 [From Tylenol-Codeine #3] simvastatin [From Zocor] Allergy Other Verified 12/12/20 09:10 Family History Mother Diabetes Kidney disease CVA (cerebral vascular accident) Father Heart disease Mother Diabetes Surgical History History of cardiac catheterization History of heart artery stent History of right mastectomy S/P dialysis catheter insertion Social History Smoking Status: Current every day smoker tobacco type: cigarettes alcohol intake: never ROS Constitutional Constitutional: Denies chills, fatigue, fever(s) or malaise Eyes Eyes: Denies blurry vision ENT HEENT: Denies headache(s) or nasal discharge Cardiovascular Cardiovascular: Denies chest pain, dyspnea on exertion or syncope Respiratory/Chest Respiratory/Chest: Reports shortness of breath at rest; Denies cough or shortness of breath with exertion Gastrointestinal Gastrointestinal: Denies constipation, diarrhea, nausea or vomiting Genitourinary Genitourinary: Denies dysuria Neurologic Neurologic: Denies focal weakness, numbness or tremor(s) Psychiatric Psychiatric: Denies anxiety or depression Vital Signs Vital Signs Vital Signs: 12/25/20 19:04 12/25/20 19:47 12/25/20 22:40 Temperature 98.4 F 96.9 F L Temperature Source Temporal Temporal Pulse Rate 88 104 H Respiratory Rate 18 18 Respiratory Pattern Normal Blood Pressure 145/65 H 150/63 H Blood Pressure Mean 91 92 Pulse Ox 98 95 Oxygen Delivery Method Room Air Room Air 12/25/20 23:04 Temperature 96.9 F L Temperature Source Temporal Pulse Rate 104 H Respiratory Rate 18 Respiratory Pattern Blood Pressure 150/63 H Blood Pressure Mean 92 Pulse Ox 95 Oxygen Delivery Method Room Air Weight Weight: 562 lb 2.86 oz Body Mass Index (BMI) 96.5 Physical Exam Const alert, oriented x3 and no apparent distress General Appearance: cooperative HEENT normocephalic and moist oral mucous membranes Eyes PERRL, EOMs intact bilaterally and conjunctivae normal Neck supple and no JVD Resp normal respiratory effort, no retractions, no use of accessory muscles and clear to auscultation bilaterally Auscultation: Negative for crackles, rales, rhonchi or wheezes Cardio regular rate, regular rhythm, S1 normal heart sound, S2 normal heart sound and no murmurs GI soft to palpation, non-tender and non-distended; Negative for hepatosplenomegaly Extremity General Extremity: edema bilateral lower extremity Details: trace; Negative for clubbing or cyanosis Skin no rashes or lesions noted Neuro no focal motor deficits and no sensory deficits noted Psych affect normal Appearance: appropriate Results Lab / Micro Data Result Diagrams: 12/25/20 21:01 12/25/20 21:01 Labs: Laboratory Results - last 24 hr 12/25/20 21:01: WBC 7.9, RBC 3.05 L, Hgb 10.1 L, Hct 30.1 L, MCV 98.7, MCH 33.1 H, MCHC 33.6, RDW Std Deviation 45.3 H, RDW Coeff of Angela 12.5, Plt Count 163, MPV 10.9, Immature Gran % (Auto) 0.500, Neut % (Auto) 72.8 H, Lymph % (Auto) 14.0 L, [place] % (Auto) 8.0, Eos % (Auto) 4.3, Baso % (Auto) 0.4, Absolute Neuts (auto) 5.8, Absolute Lymphs (auto) 1.11, Nucleated RBC % 0 12/25/20 21:01: Sodium 129 L, Potassium 4.9, Chloride 97 L, Carbon Dioxide 27.0, Anion Gap 5, BUN 43 H, Creatinine 3.77 H, Estim Creat Clear Calc 14.05, Est GFR (MDRD) Af Amer 16 L, Est GFR (MDRD) Non-Af 13 L, BUN/Creatinine Ratio 11.4, Glucose 286 H, Calcium 8.2 L 12/25/20 21:01: B-Natriuretic Peptide 446.9 H Radiology Impression Chest X-Ray 12/25/20 21:20 IMPRESSION: No acute radiographic abnormalities. Electronically Signed: Hank Espitia MD at 22:03 EDT Tel , Service support , Assessment & Plan Assessment/Plan (1) Chronic kidney disease with end stage renal failure on dialysis: PLAN: 1. ESRD on dialysis/DM 2 -Unfortunately she has to be admitted because she has no way of going home, she understands that she will be in observation -We will consult nephrology for possible dialysis tomorrow in her office today to tie her over until Wednesday -We will continue with her home Lasix, no IV fluids -continue with her home insulin, will monitor Accu-Cheks AC at bedtime 2. HTN/HLD -Blood pressures are stable, will continue with losartan and Lasix -Continue with Coreg -Sodium is stable at 129, this was her baseline 3. Hypothyroidism -Stable -Continue with Synthroid 4. Anxiety/depression -Stable -Continue with Zoloft and Wellbutrin DVT: SCDs Charges/Coding Visit Charges OBSV E&M: 33084 Initial observation care L3
[2020-12-26] VITALS (8 sets, daily range): BP systolic 93–170; BP diastolic 50–76; PULSE 61–90; RESP 16–20; TEMP 36.3–37.1; O2SAT 90–100; BMI 44.5
[2020-12-26] MEDS: Gabapentin 300 MG Capsule PO ×3 (00:57→17:08)
[2020-12-26] MEDS: Acetaminophen 325 MG Tablet 650 MG PO ×4 (00:57→17:08)
[2020-12-26] MEDS: Carvedilol 6.25 MG Tablet PO (00:57)
[2020-12-26] MEDS: tiZANidine HCl 2 MG Tablet PO ×2 (00:58→19:44)
[2020-12-26] MEDS: Insulin Lispro 100 UNIT/ML INSULN.PEN SC ×2 (01:03→09:46)
[2020-12-26 01:11] LABS: Bedside Glucose 268 mg/dL (70-110)
[2020-12-26 05:37] LABS: Absolute Lymphocyte Count 1.14 X10^3/uL (0.83-4.51); Absolute Neutrophil Count 4.4 X10^3/uL (2.0-7.7); Basophil# 0.03 X10^3/uL; Basophil% 0.5 % (0-1); Eosinophil# 0.34 X10^3/uL; Eosinophils% 5.2 % (0-5); Hematocrit 27.5 % (37-47); Hemoglobin 8.8 g/dL (12.0-15.0); Lymphocyte # 1.14 X10^3/ul (0.83-4.51); Lymphocyte % 17.4 % (19-41); Mean Corpuscular Hgb 32.2 pg (27.0-32.0); Mean Corpuscular Volume 100.7 fL (81-99); Mean Platelet Vol. 10.7 fl (6.2-12.0); Monocyte# 0.62 X10^3/uL; Monocyte% 9.5 % (0-10); NRBC Flagged by Analyzer 0 % (0-5); Neutrophil # 4.39 X10^3/uL (2.7-7.7); Neutrophil % 66.8 % (47-70); Platelet Count 142 K/mm3 (150-450); RBC Distribution Width CV 12.6 % (11.6-14.6); RBC Distribution Width SD 45.9 fl (35.1-43.9); Red Blood Count 2.73 M/mm3 (4.2-5.4); White Blood Count 6.6 K/mm3 (4.4-11.0)
[2020-12-26] MEDS: Levothyroxine 100 MCG Tablet 200 MCG PO (06:04)
[2020-12-26 06:13] LABS: Anion Gap 7 (5-15); BUN 47 mg/dL (7-18); BUN/Creat Ratio 11.9 RATIO (10-20); Calcium,Total 8.2 mg/dL (8.5-10.1); Chloride 99 mmol/L (98-107); Creatinine, Serum 3.96 mg/dL (0.55-1.02); EST Glomerular Filtration Rate 12 mL/min (>60); Est Glom Filt Rate - Afr Amer 15 mL/min (>60); Estimated Creatinine Clearance 13.37 ml/min; Glucose 239 mg/dL (74-106); Potassium 4.3 mmol/L (3.5-5.1); Sodium Level 132 mmol/L (136-145)
--- NOTE | 2020-12-26 08:16 | WOUNDNOTE ---
wound photo: right great toe
[2020-12-26 08:55] LABS: Bedside Glucose 183 mg/dL (70-110)
[2020-12-26] MEDS: Insulin Lispro 100 UNIT/ML INSULN.PEN 20 UNIT SC (09:44)
[2020-12-26] MEDS: Calcium Acetate 667 MG Capsule 1334 MG PO ×2 (09:46→17:07)
--- NOTE | 2020-12-26 09:47 | PCM.DC.SUM ---
Providers Date of Admission: 12/25/20 Primary Care Physician: Dr. 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 jig Routine Comment: Reason for Consult:: diabetic foot wound, right great toe Reason For Visit: MISSED DIALYSIS Diagnosis Discharge Diagnosis (1) Chronic kidney disease with end stage renal failure on dialysis: Status: Chronic Code(s): N18.6 - End stage renal disease; Z99.2 - Dependence on renal dialysis Medications at Discharge Home Medications promethazine 25 mg PO Q8H PRN PRN 05/14/13 carvedilol 6.25 mg PO BID 08/13/19 bupropion HCl 300 mg PO QHS 12/21/19 calcium acetate(phosphat bind) 1,334 mg PO TIDCM 12/21/19 nitroglycerin 0.4 mg SUBLINGUAL Q5M PRN 12/21/19 gabapentin 300 mg PO TID 01/19/20 tizanidine 2 mg PO TID PRN PRN 01/19/20 insulin lispro 20 unit SUBCUT TIDAC #0 01/23/20 Triphrocaps 1 cap PO DAILY 08/28/20 acetaminophen [Tylenol 8 Hour] 650 mg PO Q6H 08/28/20 albuterol sulfate 2 puff INHALATION Q4H PRN 08/28/20 furosemide 40 mg PO BID 08/28/20 guaifenesin [Adult Tussin Chest Congestion] 200 mg PO Q4H PRN 08/28/20 insulin glargine 27 units SUBCUT QHS 08/28/20 letrozole 2.5 mg PO DAILY 08/28/20 loratadine 10 mg PO DAILY 08/28/20 magnesium oxide 400 mg PO DAILY 08/28/20 sennosides [senna] 17.2 mg PO BID 08/28/20 sertraline 25 mg PO QHS 08/28/20 insulin lispro [Humalog KwikPen Insulin] See Protocol SUBCUT ACHS #0 ml 09/05/20 losartan 100 mg PO DAILY #0 tab 09/05/20 levothyroxine 200 mcg PO DAILY 11/19/20 Hospital Course Operations None Procedures None Summary of Care Provided Minutes Spent on Discharge: 18 Hospital Course: Ms. Ordonez is an 60-year-old white female who presented to the emergency department [facility] on the evening of 12/25/2020 with a chief complaint of edema. On admission she reported weight gain. She had dialysis scheduled yesterday but did not go because she felt she needed to be seen at the hospital. She reported that she had some mild shortness of breath but she is not hypoxic and maintaining oxygen saturations from 95 to 99% on room air. She had no abnormal labs other than her elevated creatinine which is baseline. Her electrolytes appeared to be normal. Her chest x-ray was unremarkable and showed no significant signs of volume overload. There were no urgent or emergent needs for dialysis at this time. I discussed the case with her president [employer] ceo [employer] and the president & ceo [employer] on-call and they felt she was fine for outpatient dialysis and we instructed her to attend dialysis tomorrow for fluid removal. She voiced understanding. She was discharged in stable condition for follow-up with dialysis on 12/27/2020 which is her regularly scheduled dialysis day. Discharge diagnoses: Edema secondary to this CKD/end-stage renal disease-chronic CAD DM-2 ESRD HD dependent HTN HPL Hypothyroidism History of DVT Chronic pain History of breast cancer Depression Tobacco abuse Physical Exam Const alert, oriented x3 and no apparent distress Constitutional Narrative: Morbidly obese white female sitting up in a chair at the bedside, on room air, oxygen saturations at 99%. General Appearance: cooperative, comfortable and well developed Orientation / Consciousness: awake Exam Limitations: no limitations Nutritional Appearance: morbidly obese HEENT normocephalic, head/scalp atraumatic and moist oral mucous membranes Resp normal respiratory effort, no retractions, no use of accessory muscles and clear to auscultation bilaterally Resp Narrative: Slightly diminished at bases bilaterally but no adventitious sounds, patient on room air with sats at 99% Auscultation: Negative for crackles, rales, rhonchi or wheezes Cardio regular rate, regular rhythm, S1 normal heart sound, S2 normal heart sound, no murmurs, no rub, no gallops, no clicks and no JVD GI normal to inspection, nondistended, normoactive bowel sounds, soft to palpation, non-tender and non-distended Extremity Extremity Narrative: Trace bilateral lower extremity pitting edema-appears to be chronic, no clubbing or cyanosis Neuro oriented x3 and moves all extremities Sensorium / Orientation: awake and alert Speech: speech normal Psych affect normal Weight / BMI Weight Weight: 118.3 kg Body Mass Index (BMI) 44.5 ABG / Lab / Microbiology Data Result Diagrams: 12/26/20 05:04 12/26/20 05:04 Laboratory: Laboratory Results - last 24 hr 12/25/20 21:01: WBC 7.9, RBC 3.05 L, Hgb 10.1 L, Hct 30.1 L, MCV 98.7, MCH 33.1 H, MCHC 33.6, RDW Std Deviation 45.3 H, RDW Coeff of Angela 12.5, Plt Count 163, MPV 10.9, Immature Gran % (Auto) 0.500, Neut % (Auto) 72.8 H, Lymph % (Auto) 14.0 L, [place] % (Auto) 8.0, Eos % (Auto) 4.3, Baso % (Auto) 0.4, Absolute Neuts (auto) 5.8, Absolute Lymphs (auto) 1.11, Nucleated RBC % 0 12/25/20 21:01: Sodium 129 L, Potassium 4.9, Chloride 97 L, Carbon Dioxide 27.0, Anion Gap 5, BUN 43 H, Creatinine 3.77 H, Estim Creat Clear Calc 14.05, Est GFR (MDRD) Af Amer 16 L, Est GFR (MDRD) Non-Af 13 L, BUN/Creatinine Ratio 11.4, Glucose 286 H, Calcium 8.2 L 12/25/20 21:01: B-Natriuretic Peptide 446.9 H 12/26/20 01:02: POC Glucose 268 H 12/26/20 05:04: WBC 6.6, RBC 2.73 L, Hgb 8.8 L, Hct 27.5 L, MCV 100.7 H, MCH 32.2 H, MCHC 32.0, RDW Std Deviation 45.9 H, RDW Coeff of Angela 12.6, Plt Count 142 L, MPV 10.7, Immature Gran % (Auto) 0.600, Neut % (Auto) 66.8, Lymph % (Auto) 17.4 L, [place] % (Auto) 9.5, Eos % (Auto) 5.2 H, Baso % (Auto) 0.5, Absolute Neuts (auto) 4.4, Absolute Lymphs (auto) 1.14, Nucleated RBC % 0 12/26/20 05:04: Sodium 132 L, Potassium 4.3, Chloride 99, Carbon Dioxide 26.0, Anion Gap 7, BUN 47 H, Creatinine 3.96 H, Estim Creat Clear Calc 13.37, Est GFR (MDRD) Af Amer 15 L, Est GFR (MDRD) Non-Af 12 L, BUN/Creatinine Ratio 11.9, Glucose 239 H, Calcium 8.2 L 12/26/20 08:45: POC Glucose 183 H Radiography Diagnostic Testing: Radiology Impression Chest X-Ray 12/25/20 21:20 IMPRESSION: No acute radiographic abnormalities. Electronically Signed: Hank Espitia MD at 22:03 EDT Tel , Service support , D/C Instructions Discharge Diet: 1800 Calorie Control Diet and Renal Diet Discharge Activity: Return to Normal Activity Meaningful Use Info Meaningful Use Diagnoses (Choose all that apply): None applicable Discharge Plan Admission Admit Date/Time: 12/25/20 23:06 Primary Reason for Your Visit: dialysis Attending Provider: Tessy Palma Primary Care Provider: Iban Eldridge Consulting Providers: Michael Max Instructions Additional Instructions / Restrictions: Please follow up with your regularly scheduled dialysis tomorrow at [facility] Discharge Orders/Prescriptions Prescriptions: Continued promethazine 25 MG tablet 25 mg PO Q8H PRN PRN (Reason: Nausea) RF: 0 carvedilol 6.25 MG tablet 6.25 mg PO BID RF: 0 nitroglycerin 0.4 MG tablet, sublingual 0.4 mg sublingual Q5M PRN (Reason: CHEST PAIN) RF: 0 calcium acetate(phosphat bind) 667 MG capsule 1,334 mg PO TIDCM RF: 0 bupropion HCl 300 MG tablet extended release 24 hr 300 mg PO QHS RF: 0 gabapentin 300 MG capsule 300 mg PO TID RF: 0 tizanidine 2 MG capsule 2 mg PO TID PRN PRN (Reason: muscle relaxant) RF: 0 insulin lispro 100 UNIT/ML insulin pen 20 unit subcut TIDAC Qty: 0 RF: 0 furosemide 40 mg tablet 40 mg PO BID RF: 0 sennosides [senna] 8.6 mg tablet 17.2 mg PO BID RF: 0 guaifenesin [Adult Tussin Chest Congestion] 100 mg/5 mL liquid 200 mg PO Q4H PRN (Reason: Cough) RF: 0 acetaminophen [Tylenol 8 Hour] 650 mg Tablet Extended Release 650 mg PO Q6H RF: 0 magnesium oxide 400 mg (241.3 mg magnesium) tablet 400 mg PO DAILY RF: 0 sertraline 25 mg tablet 25 mg PO QHS RF: 0 Triphrocaps 1 mg capsule 1 cap PO DAILY RF: 0 letrozole 2.5 mg tablet 2.5 mg PO DAILY RF: 0 albuterol sulfate 90 mcg/actuation HFA aerosol inhaler 2 puff INHALATION Q4H PRN (Reason: sob) RF: 0 loratadine 10 mg tablet 10 mg PO DAILY RF: 0 insulin glargine 100 UNITS/ML insulin pen 27 units subcut QHS RF: 0 insulin lispro [Humalog KwikPen Insulin] 100 unit/mL Insulin Pen See Protocol unit subcut ACHS Qty: 0 RF: 0 losartan 50 MG tablet 100 mg PO DAILY Qty: 0 RF: 0 levothyroxine 200 mcg tablet 200 mcg PO DAILY RF: 0 Referrals / Follow Up: Iban Eldridge MD [Primary Care Provider] - See Referral Note (As needed) Disposition Disposition (needs filled in before D/C Order can be placed): Home, Self Care Charges/Coding Visit Charges Inpatient E&M: 67418 Disch Hosp
--- NOTE | 2020-12-26 09:57 | DCINST_ITS ---
Discharge Instructions Diet Discharge Diet: 1800 Calorie Control Diet and Renal Diet Follow Up Care Test Results: Test results from this visit will be discussed in further detail at your follow-up appointment, if applicable. Discharge Plan Admission Admit Date/Time: 12/25/20 23:06 Primary Reason for Your Visit: dialysis Attending Provider: Tessy Palma Primary Care Provider: Iban Eldridge Consulting Providers: Michael Max Instructions Additional Instructions / Restrictions: Please follow up with your regularly scheduled dialysis tomorrow at [facility] Discharge Orders/Prescriptions Prescriptions: Continued promethazine 25 MG tablet 25 mg PO Q8H PRN PRN (Reason: Nausea) RF: 0 carvedilol 6.25 MG tablet 6.25 mg PO BID RF: 0 nitroglycerin 0.4 MG tablet, sublingual 0.4 mg sublingual Q5M PRN (Reason: CHEST PAIN) RF: 0 calcium acetate(phosphat bind) 667 MG capsule 1,334 mg PO TIDCM RF: 0 bupropion HCl 300 MG tablet extended release 24 hr 300 mg PO QHS RF: 0 gabapentin 300 MG capsule 300 mg PO TID RF: 0 tizanidine 2 MG capsule 2 mg PO TID PRN PRN (Reason: muscle relaxant) RF: 0 insulin lispro 100 UNIT/ML insulin pen 20 unit subcut TIDAC Qty: 0 RF: 0 furosemide 40 mg tablet 40 mg PO BID RF: 0 sennosides [senna] 8.6 mg tablet 17.2 mg PO BID RF: 0 guaifenesin [Adult Tussin Chest Congestion] 100 mg/5 mL liquid 200 mg PO Q4H PRN (Reason: Cough) RF: 0 acetaminophen [Tylenol 8 Hour] 650 mg Tablet Extended Release 650 mg PO Q6H RF: 0 magnesium oxide 400 mg (241.3 mg magnesium) tablet 400 mg PO DAILY RF: 0 sertraline 25 mg tablet 25 mg PO QHS RF: 0 Triphrocaps 1 mg capsule 1 cap PO DAILY RF: 0 letrozole 2.5 mg tablet 2.5 mg PO DAILY RF: 0 albuterol sulfate 90 mcg/actuation HFA aerosol inhaler 2 puff INHALATION Q4H PRN (Reason: sob) RF: 0 loratadine 10 mg tablet 10 mg PO DAILY RF: 0 insulin glargine 100 UNITS/ML insulin pen 27 units subcut QHS RF: 0 insulin lispro [Humalog KwikPen Insulin] 100 unit/mL Insulin Pen See Protocol unit subcut ACHS Qty: 0 RF: 0 losartan 50 MG tablet 100 mg PO DAILY Qty: 0 RF: 0 levothyroxine 200 mcg tablet 200 mcg PO DAILY RF: 0 Referrals / Follow Up: Iban Eldridge MD [Primary Care Provider] - See Referral Note (As needed) Disposition Disposition (needs filled in before D/C Order can be placed): Home, Self Care
[2020-12-26] MEDS: Magnesium Chloride 64 MG Delay Rel.Tablet 128 MG PO (11:46)
[2020-12-26] MEDS: Folic Acid/Vitamin B Comp W-C 1 Capsule 1 CAP PO (11:47)
[2020-12-26] MEDS: Loratadine 10 MG Tablet PO (11:47)
[2020-12-26] MEDS: Senna Tablet 2 TABLET PO (11:47)
[2020-12-26 13:01] LABS: Bedside Glucose 80 mg/dL (70-110)
[2020-12-26 15:31] LABS: Bedside Glucose 90 mg/dL (70-110)
--- NOTE | 2020-12-26 15:40 | NURSING ---
Patient called out and stated she was having chest pain. Vitals obtained and wnl. Patient is laying in bed. Appears comfortable. Able to carry on a normal conversation. Dr. Palma notified of same. Ordered EKG. Olu haddad.
--- NOTE | 2020-12-26 15:56 | EKG12_ITS ---
Test Reason : ARM PAIN Blood Pressure : / mmHG Vent. Rate : 070 BPM Atrial Rate : 070 BPM P-R Int : 188 ms QRS Dur : 090 ms QT Int : 394 ms P-R-T Axes : 029 009 -88 degrees QTc Int : 425 ms Normal sinus rhythm with sinus arrhythmia Nonspecific T wave abnormality Abnormal ECG When compared with ECG of 25-DEC-2020 20:38, MANUAL COMPARISON REQUIRED, DATA IS UNCONFIRMED Confirmed by SHIN SANTOS, JUN ([id number]), photo editor ALANNA FIELD ([id number]) on 12/31/2020 10:45:22 AM Referred By: GITA Confirmed By:JUN MELISSA MD
--- NOTE | 2020-12-26 16:00 | NURSING ---
EKG results sent to Dr. Palma. States they look ok. Patient continues to rest comfortably in bed. Dr. Palma ordered troponin x1 now. If normal will repeat in 2 hrs.
--- NOTE | 2020-12-26 16:42 | PCM.HOSP.N ---
Hospitalist Note Called by the floor right before patient was getting ready to leave she developed chest pain that she stated radiated to her left chest. She appeared comfortable throughout this but given her history and EKG was obtained and showed no acute ST-T wave changes consistent with ischemia. Troponin was obtained and will obtain a delta troponin if both troponin are normal patient may proceed with discharge if troponin elevation present will transfer to PCU and consult cardiology.
[2020-12-26 17:06] LABS: Bedside Glucose 88 mg/dL (70-110)
[2020-12-26] MEDS: Furosemide 40 MG Tablet PO (17:08)
[2020-12-26 17:30] LABS: Troponin-I HS 27 pg/mL (3.0-54.0)
[2020-12-26 19:04] LABS: Troponin-I HS 23 pg/mL (3.0-54.0)
== END 2020-12-26 20:08 | disposition home or self-care (01) ==
LOC: ED 22:38 → MS3 12-26 02:42
PROVIDERS: Admitting Provider Family Medicine; Emergency Provider Emergency Medicine; PCP Family Medicine; Visit Provider Internal Medicine
DX: E11.22 Type 2 diabetes mellitus with diabetic chronic kidney disease (principal); E11.621 Type 2 diabetes mellitus with foot ulcer; I12.0 Hypertensive chronic kidney disease with stage 5 chronic kidney disease or end stage renal disease; N18.6 End stage renal disease; E87.1 Hypo-osmolality and hyponatremia; R60.0 Localized edema; G89.29 Other chronic pain; R06.02 Shortness of breath; L97.519 Non-pressure chronic ulcer of other part of right foot with unspecified severity; E78.5 Hyperlipidemia, unspecified; F41.9 Anxiety disorder, unspecified; I25.10 Atherosclerotic heart disease of native coronary artery without angina pectoris; F32.9 Major depressive disorder, single episode, unspecified; E03.9 Hypothyroidism, unspecified; F17.210 Nicotine dependence, cigarettes, uncomplicated; Z79.899 Other long term (current) drug therapy; Z79.890 Hormone replacement therapy; Z99.2 Dependence on renal dialysis; Z79.4 Long term (current) use of insulin
CPT/HCPCS: 36415; 71045; 80048; 82962; 83880; 84484; 85025; 93005; 97166; 99218; 99284; A4216; G0378

== ENCOUNTER → 2021-03-25 14:21 | Outpatient (CLI) | payer MEDICARE, MEDICAID, SELFPAY ==
[2021-03-25 14:52] LABS: Absolute Neutrophil Count 3.7 X10^3/uL (2.0-7.7); Basophil# 0.02 X10^3/uL; Basophil% 0.4 % (0-1); Eosinophil# 0.22 X10^3/uL; Hematocrit 30.3 % (37-47); Mean Corpuscular Hgb 31.8 pg (27.0-32.0); Mean Corpuscular Volume 96.5 fL (81-99); Mean Platelet Vol. 10.4 fl (6.2-12.0); Monocyte# 0.64 X10^3/uL; Monocyte% 11.5 % (0-10); NRBC Flagged by Analyzer 0 % (0-5); Neutrophil # 3.66 X10^3/uL (2.7-7.7); Neutrophil % 65.7 % (47-70); Platelet Count 133 K/mm3 (150-450); RBC Distribution Width CV 12.7 % (11.6-14.6); RBC Distribution Width SD 44.4 fl (35.1-43.9); Red Blood Count 3.14 M/mm3 (4.2-5.4); White Blood Count 5.6 K/mm3 (4.4-11.0)
[2021-03-25 15:02] LABS: Anion Gap 8 (5-15); BUN 36 mg/dL (7-18); BUN/Creat Ratio 11.5 RATIO (10-20); Calcium,Total 8.8 mg/dL (8.5-10.1); Chloride 95 mmol/L (98-107); Creatinine, Serum 3.14 mg/dL (0.55-1.02); EST Glomerular Filtration Rate 16 mL/min (>60); Est Glom Filt Rate - Afr Amer 20 mL/min (>60); Glucose 116 mg/dL (74-106); Sodium Level 132 mmol/L (136-145)
== END ==
LOC: PAVLAB 15:01 → MEDOUTP 15:01
PROVIDERS: PCP Family Medicine; Referring Provider Physician Assistant; Visit Provider Physician Assistant
DX: T82.898A Other specified complication of vascular prosthetic devices, implants and grafts, initial encounter (principal)
CPT/HCPCS: 36592; 80048; 85025; A4216

== ENCOUNTER 2021-04-08 10:13 | Day surgery (SDC) | payer MEDICARE, MEDICAID, SELFPAY ==
[2021-04-07 09:15] VITALS: BMI 44.6
--- NOTE | 2021-04-08 10:09 | PCM.HP.BLA ---
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 Required: No Is patient in pain?: No Allergies codeine phosphate [From Tylenol-Codeine #3] Allergy (Verified 03/25/21 13:33) Swelling simvastatin [From Zocor] Allergy (Verified 03/25/21 13:33) Other Medications promethazine 25 mg PO Q8H PRN PRN 05/14/13 [History Confirmed 03/25/21] carvedilol 6.25 mg PO BID 08/13/19 [History Confirmed 03/25/21] bupropion HCl 300 mg PO QHS 12/21/19 [History Confirmed 03/25/21] calcium acetate(phosphat bind) 1,334 mg PO TIDCM 12/21/19 [History Confirmed 03/25/21] nitroglycerin 0.4 mg SUBLINGUAL Q5M PRN 12/21/19 [History Confirmed 03/25/21] gabapentin 300 mg PO TID 01/19/20 [History Confirmed 03/25/21] tizanidine 2 mg PO TID PRN PRN 01/19/20 [History Confirmed 03/25/21] insulin lispro 20 unit SUBCUT TIDAC #0 01/23/20 [Rx Confirmed 03/25/21] Triphrocaps 1 cap PO DAILY 08/28/20 [History Confirmed 03/25/21] acetaminophen [Tylenol 8 Hour] 650 mg PO Q6H 08/28/20 [History Confirmed 03/25/21] albuterol sulfate 2 puff INHALATION Q4H PRN 08/28/20 [History Confirmed 03/25/21] furosemide 40 mg PO BID 08/28/20 [History Confirmed 03/25/21] guaifenesin [Adult Tussin Chest Congestion] 200 mg PO Q4H PRN 08/28/20 [History Confirmed 03/25/21] insulin glargine 27 units SUBCUT QHS 08/28/20 [History Confirmed 03/25/21] letrozole 2.5 mg PO DAILY 08/28/20 [History Confirmed 03/25/21] loratadine 10 mg PO DAILY 08/28/20 [History Confirmed 03/25/21] magnesium oxide 400 mg PO DAILY 08/28/20 [History Confirmed 03/25/21] sennosides [senna] 17.2 mg PO BID 08/28/20 [History Confirmed 03/25/21] sertraline 25 mg PO QHS 08/28/20 [History Confirmed 03/25/21] insulin lispro [Humalog KwikPen Insulin] See Protocol SUBCUT ACHS #0 ml 09/05/20 [Rx Confirmed 03/25/21] losartan 100 mg PO DAILY #0 tab 09/05/20 [Rx Confirmed 03/25/21] levothyroxine 200 mcg PO DAILY 11/19/20 [History Confirmed 03/25/21] aspirin 81 mg tablet,delayed release 81 mg PO DAILY 03/25/21 [History Confirmed 03/25/21] [facility] Medical History Back pain Breast cancer CAD (coronary artery disease) Cancer Cardiology follow-up encounter Chronic kidney disease with end stage renal failure on dialysis Chronic pain Depression Diabetes DM2 (diabetes mellitus, type 2) DVT (deep venous thrombosis) ESRD (end stage renal disease) History of echocardiogram History of pain when walking History of renal dialysis History of renal disease HTN (hypertension) Hypertension Hyponatremia Hypothyroidism Injury of head and neck Insulin dependent diabetes mellitus Problem with dialysis access Shortness of breath on exertion Smoker Thyroid disease Type 2 diabetes mellitus VTE (venous thromboembolism) Wears glasses Surgical History History of cardiac catheterization History of heart artery stent History of right mastectomy S/P dialysis catheter insertion Family History Mother Diabetes Kidney disease CVA (cerebral vascular accident) Father Heart disease Mother Diabetes Social History Smoking Status: Current every day smoker tobacco type: cigarettes alcohol intake: never HPI HPI HPI: FÉLIX PARKINSON, is a 60 F who presents to the office today for left upper extremity swelling of fistula arm. Patient has a stage I left upper extremity basilic vein to brachial artery which was created on 12/12/[address] Barth. Patient returns for a follow-up of her fistula. Patient is currently on dialysis on M,W and F. She denies any pain/discomfort at the fistula site. 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 She presents today with her niece whom she lives with and assists with her care. Patient was scheduled for a fistulogram last month and unfortunately had to cancel the day of due to hospitalization. She had a fall at home according to the niece which prompted a call to 911 and transport to [facility]. Once there she had some chest pain. Patient was unsure of what testing was completed. Patient's niece stated the patient had a tunneled dialysis catheter exchange during her hospitalization and another approximately 1 week ago. She denies current chest pain and shortness of breath. ROS General General: Yes fatigue and breast cancer; No weight change, appetite, colon cancer or weakness HEENT HEENT: Yes difficulty swallowing, eye injury and eye surgery; No swollen glands or hoarseness Endo Endocrine: Yes diabetes mellitus; No thyroid disease, thyroid cancer, Hair loss, heat intolerance or cold intolerance Skin Skin: No rash or changing moles Breast Breast: No left breast lump, right breast lump, nipple discharge, breast pain, abnormal mammogram, abnormal US or breast enlargement Musc Musculoskeletal: Yes back problems; No arthritis, rheumatoid arthritis, gout or joint pain Cardio Cardiovascular: Yes heart disease, high blood pressure, heart attack and heart stent; No murmur, pacemaker, atrial fibrillation, palpitations, shortness of breat with exertion or chest pain Psych Psychiatric: Yes depression and anxiety; No hearing voices Resp Respiratory: Yes shortness of breath, No sleep apnea, No cough, No COPD, No asthma, No emphysema and No wheezing Gastro Gastrointestinal: No abdominal pain, No nausea or vomiting, No diarrhea, Yes constipation, No blood in stool, No acid reflux, No hemorrhoids, No ulcers, No gallbladder problem and No black,tarry stools Otto Hematologic: No blood thinners, No blood disorders, No bleeding, No anemia and No blood clots Neuro Neurologic: No system reviewed and no additional complaints, except as documented, No as per HPI, No abnormal gait, No abnormal hearing, No abnormal movements, No abnormal speech, No behavioral changes, No burning sensations, No confusion, No convulsions, No disequilibrium, No dizziness, No localized weakness, No frequent falls, No headache(s), No lack of coordination, No loss of vision, No memory loss, Yes numbness, No other visual disturbances, No radicular pain, No restless legs, No sensory deficit, No syncope, Yes tingling, No tremor(s), No weakness and No other Exam Const General: cooperative, healthy appearing, comfortable and no acute distress HENMD Head: normal to inspection Eyes General: appearance normal, both eyes and all related structures Neck Neck: normal visual inspection Neck mass: No Resp Effort & Inspection: normal respiratory effort Auscultation: clear to auscultation bilaterally Cardio Rate: regular rate Rhythm: regular rhythm GI Inspection: obesity Palpation: soft Auscultation: normal bowel sounds Skin General: no rashes or lesions noted Neuro General: no focal motor deficits and CN's II-XI intact bilaterally Extrem Other: Left upper extremity AV fistula- 2-3+ edema noted of the entire left upper extremity. Good pulse, bruit and thrill. Chest- left chest catheters noted. Psych Appearance: grossly normal Affect: normal affect Assessment and Plan Assessment and Plan (1) Problem with dialysis access: Status: Acute Qualifiers: Encounter type: initial encounter Qualified Code(s): T82.898A - Other specified complication of vascular prosthetic devices, implants and grafts, initial encounter Orders: Orders: Basic Metabolic Profile (BMP) 03/25/21 CBC W/Diff, Automated 03/25/21 Plan - Deedee ORO, PA-C: Dr. Pena will plan to perform a left upper extremity fistulogram with possible intervention of left chest region. Procedure details, risks and benefits have been explained to the patient. Dr. Barth will plan to proceed with stage II transposition of the left upper extremity fistula creation on a separate occasion. Procedure details, risks and benefits have been explained to the patient. Patient has had the opportunity to ask and have questions answered. Patient verbally understands and agrees with the plan. She is not currently on any blood thinners. I have re-examined the patient. There are no clinical changes since date of exam. Laci Barth M.D., F.A.C.S.
--- NOTE | 2021-04-08 11:57 | OP.PCM_ITS ---
Problems Associated Problem List Diagnoses (1) Problem with dialysis access: Report of Operation Date of Procedure: 04/08/21 Pre-Operative Diagnosis: Problem with left upper extremity dialysis access with arm swelling Post-Operative Diagnosis: Indwelling left internal jugular tunneled dialysis catheter with partial obstruction to central venous flow and proximal left subclavian vein stenosis Surgery/Procedure Performed:: Left upper extremity fistulogram with 10 x 4 [place] subclavian vein angioplasty Description of Surgical Findings:: Timeout and informed consent was obtained. 60-year-old female was taken to the special procedures lab placed on the table. She received 50 mcg of fentanyl and 1 mg Versed is intravenous sedation. The left upper extremity was sterilely prepped and draped. Ultrasound was used to identify stage I basilic vein anastomosed with the brachial artery. This was widely patent. Under ultrasound guidance 2% lidocaine was instilled as a local anesthetic and then using ultrasound a micropuncture needle was inserted into the basilic vein micropuncture wire then a 6 Nepali short sheath dilator. Using Isovue contrast a fistulogram was obtained of the left upper extremity. This demonstrated a nicely patent left upper semibasilic vein with good flow. There was good flow through the axillary vein concomitant flow through the upper arm cephalic vein was identified as well. There is evidence of a indwelling left internal jugular tunneled dialysis catheter with partial obstruction and central venous flow and there is evidence of at least a 50% stenosis of the very proximal left subclavian vein at the junction with the internal jugular vein. Subsequently a 03 5 inch guidewire was placed and a 10 x 4 [place] balloon was placed and balloon angioplasty up to 22 curry of pressure and held for 4 minutes was performed. Completion views demonstrated improvement in that central stenosis of the subclavian vein. She tolerated the procedure well. Sheath was removed U suture of 4-0 nylon was placed. No apparent complication blood loss minimal. Impression widely patent left upper extremity stage I basilic vein to brachial artery AV hemodialysis fistula with some moderate to proximal left subclavian stenosis treated with balloon angioplasty. Partial obstruction to flow caused by left internal jugular tunneled dialysis catheter though patency of the brachiocephalic and superior vena cava is evident. Laci Barth M.D., F.A.C.S. Surgeon: Laci Barth Type of Anesthesia: IV Sedation and Local
== END 2021-04-08 13:16 | disposition home or self-care (01) ==
PROVIDERS: PCP Family Medicine; Referring Provider Surgery; Visit Provider Surgery
DX: T82.858A Stenosis of other vascular prosthetic devices, implants and grafts, initial encounter (principal); I25.10 Atherosclerotic heart disease of native coronary artery without angina pectoris; E11.22 Type 2 diabetes mellitus with diabetic chronic kidney disease; I12.9 Hypertensive chronic kidney disease with stage 1 through stage 4 chronic kidney disease, or unspecified chronic kidney disease; N18.6 End stage renal disease; E03.9 Hypothyroidism, unspecified; F32.A Depression, unspecified; F41.9 Anxiety disorder, unspecified; I25.2 Old myocardial infarction; F17.210 Nicotine dependence, cigarettes, uncomplicated; G89.29 Other chronic pain; Z95.5 Presence of coronary angioplasty implant and graft; Z99.2 Dependence on renal dialysis; Z86.718 Personal history of other venous thrombosis and embolism; Z79.82 Long term (current) use of aspirin; Z79.4 Long term (current) use of insulin; Z79.899 Other long term (current) drug therapy; Z85.3 Personal history of malignant neoplasm of breast
CPT/HCPCS: 36902; 76937; 99152; 99153; Q9967; C1769

== ENCOUNTER 2021-04-09 12:05 | Emergency (ER) | payer MEDICARE, MEDICAID, SELFPAY ==
[2021-04-09 12:06] VITALS: BP 146/69; PULSE 81; RESP 17; TEMP 35.9; O2SAT 95; BMI 45.3
--- NOTE | 2021-04-09 12:19 | VDUE_ITS ---
Reason For Study: Swelling Left Proximal Left jugular vein is spontaneous, widely patent, phasic, with no intraluminal echogenicity noted. Left subclavian vein is spontaneous, widely patent, phasic, with no intraluminal echogenicity noted. Left Arm Left axillary vein is spontaneous, patent, phasic, competent, compressible and demonstrates augmentation. Left brachial vein is compressible. Left cephalic vein is compressible. Left basilic vein is compressible. Left Lower Arm Left radial vein is compressible. Left ulnar vein is compressible. Fistula noted in distal forearm. Axillary artery, 387.6/158.8 cm/sec. Brachial artery, 314.5/143.9 cm/sec. Radial artery distal, No flow. Ulnar artery distal, 55.2 cm/sec. Patient Safety Preliminary to [place]. VL/Venous Duplex US, Unilateral Interpretation Summary No evidence for acute deep venous thrombosis[left] upper extremity with patent and compressible cephalic and basilic veins. Left upper extremity known stage I brachial to basi lic arteriovenous hemodialysis fistula Increased arterial flow velocity left axillary and brachial arteries Normal flow left ulnar artery Minimal flow to possible reversible flow left radial artery Ordering Physician: Dylan Bruno Referring Physician: MD Chente Iban Performed By: Genna Vera RVT ?
--- NOTE | 2021-04-09 12:20 | EX.ED.UPPERE ---
HPI History of Present Illness Chief Complaint: Upper Extremity Injury Detail of Chief Complaint: Patient presents with pain and swelling left upper extremity status post va Informant: patient and family Onset/Context/Timing Onset: Yesterday Context: Sudden Onset Timing: Continuous Quality of Pain: Dull Location: Left upper extremity Current Severity: Moderate Maximum Severity: Severe Worsened by: Palpation and movement Relieved by: Nothing Associated Symptoms Associated Symptoms: Negative for Parasthesia, Weakness and Loss of Funtion Narrative Narrative: Patient is a 60-year-old woman with 3 of end-stage renal disease on hemodialysis who has had difficulty with her tunneled Vas-Cath left side. She underwent procedure by Dr. Laci Barth yesterday. She presents because of increased pain and swelling. She also reports mild shortness of breath. She denies cough. She denies hemoptysis. She denies history of PE or DVT. She is not a good informant. She denies fever, chills night sweats. She denies rhinorrhea, congestion postnasal drainage. She denies sore throat. She denies ear pain or decreased hearing. She denies chest pain. She denies abdominal pain, nausea, vomiting or diarrhea. Tetanus Immunization: Unknown Prior similar symptoms: No Recent Illness/Hospitalization: Yes PFSH PFS Medical History Back pain Breast cancer CAD (coronary artery disease) Cancer Cardiology follow-up encounter Chronic kidney disease with end stage renal failure on dialysis Chronic pain Depression Diabetes DM2 (diabetes mellitus, type 2) DVT (deep venous thrombosis) ESRD (end stage renal disease) History of echocardiogram History of pain when walking History of renal dialysis History of renal disease HTN (hypertension) Hypertension Hyponatremia Hypothyroidism Injury of head and neck Insulin dependent diabetes mellitus Problem with dialysis access Shortness of breath on exertion Smoker Thyroid disease Type 2 diabetes mellitus VTE (venous thromboembolism) Wears glasses Home Medications promethazine 25 mg PO Q8H PRN PRN 05/14/13 [History Last Taken Unknown] carvedilol 6.25 mg PO BID 08/13/19 [History Last Taken 08/27/20] bupropion HCl 300 mg PO QHS 12/21/19 [History Last Taken 08/27/20] calcium acetate(phosphat bind) 1,334 mg PO TIDCM 12/21/19 [History Last Taken 08/27/20] nitroglycerin 0.4 mg SUBLINGUAL Q5M PRN 12/21/19 [History Last Taken Unknown] gabapentin 300 mg PO TID 01/19/20 [History Last Taken 08/27/20] tizanidine 2 mg PO TID PRN PRN 01/19/20 [History Last Taken Unknown] insulin lispro 20 unit SUBCUT TIDAC #0 01/23/20 [Rx Last Taken 08/27/20] Triphrocaps 1 cap PO DAILY 08/28/20 [History Last Taken 08/27/20] acetaminophen [Tylenol 8 Hour] 650 mg PO Q6H 08/28/20 [History Last Taken 08/27/20] albuterol sulfate 2 puff INHALATION Q4H PRN 08/28/20 [History Last Taken 08/27/20] furosemide 40 mg PO BID 08/28/20 [History Last Taken 08/27/20] guaifenesin [Adult Tussin Chest Congestion] 200 mg PO Q4H PRN 08/28/20 [History Last Taken Unknown] insulin glargine 27 units SUBCUT QHS 08/28/20 [History Last Taken 08/27/20] letrozole 2.5 mg PO DAILY 08/28/20 [History Last Taken 08/27/20] loratadine 10 mg PO DAILY 08/28/20 [History Last Taken 08/27/20] magnesium oxide 400 mg PO DAILY 08/28/20 [History Last Taken 08/27/20] sennosides [senna] 17.2 mg PO BID 08/28/20 [History Last Taken 08/27/20] sertraline 25 mg PO QHS 08/28/20 [History Last Taken 08/27/20] insulin lispro [Humalog KwikPen Insulin] See Protocol SUBCUT ACHS #0 ml 09/05/20 [Rx Last Taken Unknown] losartan 100 mg PO DAILY #0 tab 09/05/20 [Rx Last Taken 08/27/20] levothyroxine 200 mcg PO DAILY 11/19/20 [History Last Taken Unknown] aspirin 81 mg tablet,delayed release 81 mg PO DAILY 03/25/21 [History Last Taken Unknown] Allergy/AdvReac Type Severity Reaction Status Date / Time codeine phosphate Allergy Swelling Verified 04/09/21 12:05 [From Tylenol-Codeine #3] simvastatin [From Zocor] Allergy Other Verified 04/09/21 12:05 Family History Mother Diabetes Kidney disease CVA (cerebral vascular accident) Father Heart disease Mother Diabetes Surgical History History of cardiac catheterization History of heart artery stent History of right mastectomy S/P dialysis catheter insertion Social History (Updated 04/09/21 @ 12:[address] Dylan Bruno MD) household members: family Smoking Status: Heavy Smoker (>10/day) alcohol intake: never substance use type: does not use ROS ROS ED Constitutional Constitutional ED: Denies chills, fever(s), subjective, sweats or weight loss Eyes Eyes: Denies blurry vision, change in vision or diplopia ENT ENT ED: Denies ear pain, rhinorrhea or sore throat Cardiovascular Cardiovascular: Denies chest pain, orthopnea, palpitations, paroxysmal nocturnal dyspnea or racing heartbeat Respiratory/Chest Respiratory/Chest: Reports dyspnea; Denies cough, orthopnea, paroxysmal nocturnal dyspnea or sputum Gastrointestinal Gastrointestinal: Denies abdominal pain, diarrhea, nausea or vomiting Genitourinary Genitourinary ED: Denies dysuria, hematuria or urinary frequency Musculoskeletal Musculoskeletal: Reports other Details: Left upper extremity pain, swelling ; Denies back pain, myalgias or neck pain Integumentary Denies Abrasions or rash Neurologic Neurologic: Denies headache(s), paresthesias or weakness Endocrine Endocrinology: Denies polydipsia, polyphagia or polyuria Hematologic/Lymphatic Hematologic/Lymphatic: Denies easy bruising EXAM Physical Exam Const Vital Signs: 04/09/21 12:06 Temperature 96.7 F L Temperature Source Temporal Pulse Rate 81 Respiratory Rate 17 Blood Pressure 146/69 H Blood Pressure Mean 94 Pulse Ox 95 Oxygen Delivery Method Room Air Positive well nourished, well developed and obese General Appearance ED: well developed and NAD; Negative for cyanotic or diaphoretic Nutritional Appearance: obese HEENT Denies moist mucous membranes normocephalic and atraumatic; Negative for trauma or tenderness Eyes PERRL and EOMs intact bilaterally Neck full ROM and supple General: Negative for tenderness Resp normal respiratory effort and clear to auscultation bilaterally Cardio regular rate, regular rhythm and no murmurs Back/Spine no CVA tenderness Cervical Spine: Negative for cervical spine tenderness Thoracic Spine / Upper Back: Negative for thoracic spinal tenderness Extremity full ROM; Negative for normal to inspection Extremity Narrative: There is pitting edema of 3 to 4 mm left upper extremity. There is pain about patient medial left arm. There is no extra lymphadenopathy. There is no lymphangitis. There is no erythema or warmth. There is delayed capillary fill in the left index and long finger compared to the ring and little and compared to the index and long on the uninvolved side. She complains of tingling and altered sensation left long and ring finger. General Extremety ED: Yes edema General Extremity: edema Neuro oriented x3 and CN's II-XII intact bilaterally Sensorium / Orientation: alert Psych mental status grossly normal Skin Lesions: no lesions Rashes: no rashes Trauma: no lacerations or abrasions MDM MDM MDM Narrative Medical decision making narrative: Venous duplex and arterial study was done. There is no radial flow noted. Since there is no radial flow noted today and there was flow yesterday and she has neurologic symptoms Dr. Barth was contacted. I was informed by the scrub nurse that he would contact his nurse practitioner to see patient. Dr. Laci Barth and his assistant professor of radiology saw patient. Her exam is unchanged from prior. He did do arterial flow studies and states they are unchanged from prior. Since she has a viable hand and no new findings she will be discharged home. He did raise concern for opiate overuse. Discharge Plan Triage Chief Complaint: Upper Extremity Injury ED Provider: Dylan Bruno Dx/Rx/DC Orders Clinical Impression: Chronic pain of left hand, Chronic edema Instructions: ED RICE Prescriptions: No Action aspirin [Adult Aspirin Regimen] 81 mg tablet,delayed release (DR/EC) 81 mg PO DAILY RF: 0 promethazine 25 MG tablet 25 mg PO Q8H PRN PRN (Reason: Nausea) RF: 0 carvedilol 6.25 MG tablet 6.25 mg PO BID RF: 0 nitroglycerin 0.4 MG tablet, sublingual 0.4 mg sublingual Q5M PRN (Reason: CHEST PAIN) RF: 0 calcium acetate(phosphat bind) 667 MG capsule 1,334 mg PO TIDCM RF: 0 bupropion HCl 300 MG tablet extended release 24 hr 300 mg PO QHS RF: 0 gabapentin 300 MG capsule 300 mg PO TID RF: 0 tizanidine 2 MG capsule 2 mg PO TID PRN PRN (Reason: muscle relaxant) RF: 0 insulin lispro 100 UNIT/ML insulin pen 20 unit subcut TIDAC Qty: 0 RF: 0 furosemide 40 mg tablet 40 mg PO BID RF: 0 sennosides [senna] 8.6 mg tablet 17.2 mg PO BID RF: 0 guaifenesin [Adult Tussin Chest Congestion] 100 mg/5 mL liquid 200 mg PO Q4H PRN (Reason: Cough) RF: 0 acetaminophen [Tylenol 8 Hour] 650 mg Tablet Extended Release 650 mg PO Q6H RF: 0 magnesium oxide 400 mg (241.3 mg magnesium) tablet 400 mg PO DAILY RF: 0 sertraline 25 mg tablet 25 mg PO QHS RF: 0 Triphrocaps 1 mg capsule 1 cap PO DAILY RF: 0 letrozole 2.5 mg tablet 2.5 mg PO DAILY RF: 0 albuterol sulfate 90 mcg/actuation HFA aerosol inhaler 2 puff INHALATION Q4H PRN (Reason: sob) RF: 0 loratadine 10 mg tablet 10 mg PO DAILY RF: 0 insulin glargine 100 UNITS/ML insulin pen 27 units subcut QHS RF: 0 insulin lispro [Humalog KwikPen Insulin] 100 unit/mL Insulin Pen See Protocol unit subcut ACHS Qty: 0 RF: 0 losartan 50 MG tablet 100 mg PO DAILY Qty: 0 RF: 0 levothyroxine 200 mcg tablet 200 mcg PO DAILY RF: 0 Primary Care Provider: Iban Eldridge Referrals: Iban Eldridge MD [Primary Care Provider] - Laci Barth MD [STAFF PHYSICIAN] - Juan Pablo [facility] appointment Disposition Disposition: Home, Self Care
[2021-04-09] MEDS: Ondansetron 4 MG/2 ML Vial IV (13:30)
[2021-04-09] MEDS: HYDROmorphone 1 MG/ML Syringe 0.5 MG IV (13:30)
[2021-04-09 13:32] LABS: Absolute Lymphocyte Count 0.56 X10^3/uL (0.83-4.51); Absolute Neutrophil Count 3.7 X10^3/uL (2.0-7.7); Basophil# 0.02 X10^3/uL; Basophil% 0.4 % (0-1); Hematocrit 28.7 % (37-47); Hemoglobin 9.8 g/dL (12.0-15.0); Lymphocyte # 0.56 X10^3/ul (0.83-4.51); Lymphocyte % 11.4 % (19-41); Mean Corp Hgb Conc 34.1 g/dL (32-36); Mean Corpuscular Hgb 32.9 pg (27.0-32.0); Mean Corpuscular Volume 96.3 fL (81-99); Mean Platelet Vol. 10.3 fl (6.2-12.0); Monocyte# 0.49 X10^3/uL; NRBC Flagged by Analyzer 0 % (0-5); Neutrophil # 3.73 X10^3/uL (2.7-7.7); Neutrophil % 75.8 % (47-70); POSITIVE DIFFERENTIAL YES; Platelet Count 141 K/mm3 (150-450); RBC Distribution Width CV 12.8 % (11.6-14.6); RBC Distribution Width SD 45.1 fl (35.1-43.9); Red Blood Count 2.98 M/mm3 (4.2-5.4); White Blood Count 4.9 K/mm3 (4.4-11.0)
[2021-04-09 13:34] VITALS: BP 148/68; PULSE 97; RESP 16; O2SAT 93
[2021-04-09 13:34] LABS: Differential Indicated SCAN CRITERIA MET
[2021-04-09 13:44] LABS: BUN 51 mg/dL (7-18); BUN/Creat Ratio 13.1 RATIO (10-20); Calcium,Total 8.5 mg/dL (8.5-10.1); Chloride 95 mmol/L (98-107); Creatinine, Serum 3.89 mg/dL (0.55-1.02); EST Glomerular Filtration Rate 13 mL/min (>60); Est Glom Filt Rate - Afr Amer 15 mL/min (>60); Estimated Creatinine Clearance 13.61 ml/min; Glucose 266 mg/dL (74-106); Sodium Level 129 mmol/L (136-145)
[2021-04-09 13:45] LABS: Anion Gap 10 (5-15)
[2021-04-09 14:01] LABS: Hypochromasia 1+; Platelet Estimate SLT DEC (ADEQ); Red Cell Morphology N CYTIC NORMAL (NORM C&C)
--- NOTE | 2021-04-09 14:19 | PN.SURG_ITS ---
Subjective Subjective Patient is complaining of left arm pain from the upper arm axillary area all the way distally. Yesterday through the stage I left upper extremity basilic vein to brachial artery AV fistula I performed a fistulogram and did central venous angioplasty at the proximal junction of the subclavian vein and jugular vein at the site of her tunneled dialysis catheters. At no point did I enter the arterial system. The patient has had chronic swelling of her left upper extremity since creation of stage I. Objective Data Objective Data Vital Signs: Vital Signs Temp Pulse Resp BP Pulse Ox 96.7 F L 97 16 148/68 H 93 04/09/21 12:06 04/09/21 13:34 04/09/21 13:34 04/09/21 13:34 04/09/21 13:34 Oxygen Delivery Method Room Air Weight: 264 lb Body Mass Index (BMI) 45.3 Lab / Micro Data Result Diagrams: 04/09/21 13:25 04/09/21 13:25 Labs: Laboratory Results - last 24 hr 04/09/21 13:25: WBC 4.9, RBC 2.98 L, Hgb 9.8 L, Hct 28.7 L, MCV 96.3, MCH 32.9 H , MCHC 34.1, RDW Std Deviation 45.1 H, RDW Coeff of Angela 12.8, Plt Count 141 L, MPV 10.3, Immature Gran % (Auto) 0.400, Neut % (Auto) 75.8 H, Lymph % (Auto) 11.4 L, Sullivan % (Auto) 10.0, Eos % (Auto) 2.0, Baso % (Auto) 0.4, Absolute Neuts (auto) 3.7, Absolute Lymphs (auto) 0.56 L, Nucleated RBC % 0, Differential Comment , Platelet Estimate SLT DEC, RBC Morphology N CYTIC, Hypochromasia 1+ 04/09/21 13:25: Sodium 129 L, Potassium 4.0, Chloride 95 L, Carbon Dioxide 24.0, Anion Gap 10, BUN 51 H, Creatinine 3.89 H, Estim Creat Clear Calc 13.61, Est GFR (MDRD) Af Amer 15 L, Est GFR (MDRD) Non-Af 13 L, BUN/Creatinine Ratio 13.1, Glucose 266 H, Calcium 8.5 Radiography Diagnostic Testing: Radiology Impression Venous Doppler Study 04/09/21 12:19 Interpretation Summary No evidence for acute deep venous thrombosis[left] upper extremity with patent and compressible cephalic and basilic veins. Left upper extremity known stage I brachial to basilic arteriovenous hemodialysis fistula Increased arterial flow velocity left axillary and brachial arteries Normal flow left ulnar artery Minimal flow to possible reversible flow left radial artery Ordering Physician: Dylan Bruno Referring Physician: MD Chente Iban Performed By: Genna Vera RVSaida ? Physical Exam Extremity Extremity Narrative: The patient's left upper extremity appears identical to its appearance yesterday. The hand is very warm pink viable. The amount of swelling that she has in the left upper extremity is the same Assessment & Plan Assessment/Plan (1) Arm pain: QUALIFIERS: Laterality: left Qualified Code(s): M79.602 - Pain in left arm PLAN: I do not have an etiology to this patient's left upper extremity pain. Her arm clinically appears essentially identical to yesterday if not slightly less tense in its swelling particularly of the forearm. Her left hand is viable. I have reviewed her venous imaging of today and her preoperative vein mapping. Although the radial artery was previously patent it had a very low flow in an antegrade fashion in the mapping procedure. Intercurrent procedure there is a suggestion of retrograde flow which was possibly consistent with an early steal phenomena. This would be potentially consistent with the central venous angioplasty and release of central venous occlusion however her left hand clearly is warm and viable. There is no problem at her venous puncture site at the antecubital space. On many previous interchanges the patient has been pain medicine seeking for her left upper extremity. Unfortunately I am not able to decipher a new acute post surgical related problem with this extremity today. I do not feel comfortable prescribing narcotic pain medication as the patient seems to have ongoing chronic concerns and chronic efforts to obtain such meds. The left upper extremity does not appear to be in crisis. We will continue with postsurgical follow-up as already scheduled. Laci Barth M.D., F.A.C.S.
[2021-04-09 14:58] VITALS: BP 139/93; PULSE 94; RESP 16; O2SAT 98
== END 2021-04-09 14:59 | disposition home or self-care (01) ==
PROVIDERS: Emergency Provider Emergency Medicine; PCP Family Medicine
DX: M79.642 Pain in left hand (principal); R60.9 Edema, unspecified; G89.29 Other chronic pain; F17.200 Nicotine dependence, unspecified, uncomplicated; I25.10 Atherosclerotic heart disease of native coronary artery without angina pectoris; N18.6 End stage renal disease; E66.9 Obesity, unspecified; Z99.2 Dependence on renal dialysis
CPT/HCPCS: 80048; 85025; 93971; 96374; 96375; 99283; J2405

== ENCOUNTER 2021-06-15 18:50 | Emergency (ER) | payer MEDICARE, MEDICAID, SELFPAY ==
[2021-06-15 18:51] VITALS: BP 163/67; PULSE 89; RESP 16; TEMP 36.8; O2SAT 95; BMI 41.5
--- NOTE | 2021-06-15 20:20 | EKG12_ITS ---
Test Reason : DYSRHYTHMIA Blood Pressure : / mmHG Vent. Rate : 076 BPM Atrial Rate : 076 BPM P-R Int : 178 ms QRS Dur : 100 ms QT Int : 378 ms P-R-T Axes : 063 021 094 degrees QTc Int : 425 ms Normal sinus rhythm Low voltage QRS Nonspecific T wave abnormality Abnormal ECG Confirmed by SHIN SANTOS, JUN ([id number]), slot editor ALANNA FIELD ([id number]) on 06/17/2021 11:14:09 AM Referred By: ALEXIS Confirmed By:JUN MELISSA MD
--- NOTE | 2021-06-15 20:20 | CT_ITS ---
INDICATION: abd trauma EXAMINATION: CT Abdomen And Pelvis W/ Contrast Injection TECHNIQUE: Helically acquired images were obtained of the abdomen and pelvis after IV contrast. A radiation dose optimization technique was used for this scan. IV Contrast dosage and agent: IV 100mL [id number]-300 Oral contrast: None. COMPARISON: None. FINDINGS: Visualized lung bases: Unremarkable Liver: Heterogeneous liver parenchyma. Gallbladder: Few small intraluminal stones seen. Spleen: Unremarkable Pancreas: Fatty atrophic changes. Adrenal Glands: Unremarkable Kidneys: Unremarkable Vasculature: Moderate aortoiliac atherosclerotic disease. GI Tract: Unremarkable Lymphadenopathy: None Peritoneum: No ascites. Bladder: Unremarkable Reproductive organs: Unremarkable Bones/Soft tissues: There are diffuse degenerative changes of the spine. Large fat-containing umbilical hernia. Diffuse soft tissue anasarca. CT/Abdomen/Pelvis W IV Cont ONLY IMPRESSION: No acute abnormalities in the abdomen or pelvis. Large fat-containing umbilical hernia. Diffuse soft tissue anasarca. Cholelithiasis. Heterogeneous liver parenchyma could represent diffuse liver disease such as hepatitis. Electronically Signed: Hank Espitia MD at 22:51 EST ,
--- NOTE | 2021-06-15 20:20 | CT_ITS ---
EXAMINATION : Head CT w/out contrast HISTORY : ALOC COMPARISON : None. TECHNIQUE : Multiple contiguous axial images were obtained from the skull base to the vertex without intravenous contrast. A radiation dose optimization technique was used for this scan. FINDINGS : There is no evidence for acute intracranial hemorrhage, mass effect, or midline shift. There is no extra-axial fluid collection. There are periventricular white matter changes consistent with chronic microvascular ischemic disease. There is sulcal widening and ventricular enlargement consistent with cerebral atrophy. There is normal richards-white differentiation, without CT evidence of acute ischemia or infarct. Right occipital encephalomalacia. The skull base and calvarium are unremarkable. The orbits are unremarkable. The paranasal sinuses are clear. The mastoid air cells are well-aerated. The soft tissues are unremarkable. CT/Brain/Head without Contrast IMPRESSION: No acute intracranial abnormality. Right occipital encephalomalacia. Chronic involutional and ischemic changes of the brain. Electronically Signed: Hank Espitia MD at 22:53 EST ,
--- NOTE | 2021-06-15 20:23 | EDS_ITS ---
HPI History of Present Illness Chief Complaint: Confusion Informant: patient and family Onset/Context/Timing Onset: Days Context: Gradual Onset Timing: Continuous Current Severity: Mild Maximum Severity: Mild Narrative Narrative: 60-year-old female extensive past medical history of breast cancer with lung mets. CAD. CKD with dialysis Fridays. Chronic pain. Diabetes. Prior DVT and coronary artery disease with stents. Denies being on blood thinners. Reportedly the patient's had mental status changes past week. She presented to another emergency department in [place] and reportedly was discharged to home. Also within the last 2 months she was admitted to [facility]. She denies any nausea, vomiting or diarrhea. Family states that she seems confused and she was talking about her parents but they are . She is also developed bruising on her abdomen and had a fall about a week ago. Prior similar symptoms: Yes Recent Illness/Hospitalization: No PFSH PFSH Medical History Back pain Breast cancer CAD (coronary artery disease) Cancer Cardiology follow-up encounter Chronic kidney disease with end stage renal failure on dialysis Chronic pain Depression Diabetes DM2 (diabetes mellitus, type 2) DVT (deep venous thrombosis) ESRD (end stage renal disease) History of echocardiogram History of pain when walking History of renal dialysis History of renal disease HTN (hypertension) Hypertension Hyponatremia Hypothyroidism Injury of head and neck Insulin dependent diabetes mellitus Problem with dialysis access Shortness of breath on exertion Smoker Thyroid disease Type 2 diabetes mellitus VTE (venous thromboembolism) Wears glasses Home Medications promethazine 25 mg PO Q8H PRN PRN 05/14/13 [History Last Taken Unknown] carvedilol 6.25 mg PO BID 08/13/19 [History Last Taken 08/27/20] bupropion HCl 300 mg PO QHS 12/21/19 [History Last Taken 08/27/20] calcium acetate(phosphat bind) 1,334 mg PO TIDCM 12/21/19 [History Last Taken 08/27/20] nitroglycerin 0.4 mg SUBLINGUAL Q5M PRN 12/21/19 [History Last Taken Unknown] gabapentin 300 mg PO TID 01/19/20 [History Last Taken 08/27/20] tizanidine 2 mg PO TID PRN PRN 01/19/20 [History Last Taken Unknown] insulin lispro 20 unit SUBCUT TIDAC #0 01/23/20 [Rx Last Taken 08/27/20] Triphrocaps 1 cap PO DAILY 08/28/20 [History Last Taken 08/27/20] acetaminophen [Tylenol 8 Hour] 650 mg PO Q6H 08/28/20 [History Last Taken 08/27/20] albuterol sulfate 2 puff INHALATION Q4H PRN 08/28/20 [History Last Taken 08/27/20] furosemide 40 mg PO BID 08/28/20 [History Last Taken 08/27/20] guaifenesin [Adult Tussin Chest Congestion] 200 mg PO Q4H PRN 08/28/20 [History Last Taken Unknown] insulin glargine 27 units SUBCUT QHS 08/28/20 [History Last Taken 08/27/20] letrozole 2.5 mg PO DAILY 08/28/20 [History Last Taken 08/27/20] loratadine 10 mg PO DAILY 08/28/20 [History Last Taken 08/27/20] magnesium oxide 400 mg PO DAILY 08/28/20 [History Last Taken 08/27/20] sennosides [senna] 17.2 mg PO BID 08/28/20 [History Last Taken 08/27/20] sertraline 25 mg PO QHS 08/28/20 [History Last Taken 08/27/20] insulin lispro [Humalog KwikPen Insulin] See Protocol SUBCUT ACHS #0 ml 09/05/20 [Rx Last Taken Unknown] losartan 100 mg PO DAILY #0 tab 09/05/20 [Rx Last Taken 08/27/20] levothyroxine 200 mcg PO DAILY 11/19/20 [History Last Taken Unknown] aspirin 81 mg tablet,delayed release 81 mg PO DAILY 03/25/21 [History Last Taken Unknown] Allergy/AdvReac Type Severity Reaction Status Date / Time codeine phosphate Allergy Swelling Verified 06/15/21 18:51 [From Tylenol-Codeine #3] simvastatin [From Zocor] Allergy Other Verified 06/15/21 18:51 Family History Mother Diabetes Kidney disease CVA (cerebral vascular accident) Father Heart disease Mother Diabetes Surgical History History of cardiac catheterization History of heart artery stent History of right mastectomy S/P dialysis catheter insertion Social History household members: family Smoking Status: Heavy Smoker (>10/day) alcohol intake: never substance use type: does not use ROS ROS ED ROS Narrative Denies. Review of Systems ROS Unobtainable: Denies due to encephalopathy Constitutional Constitutional ED: Denies fever(s) Eyes Eyes: Denies change in vision ENT ENT ED: Denies ear pain Cardiovascular Cardiovascular: Denies chest pain Respiratory/Chest Respiratory/Chest: Denies dyspnea Gastrointestinal Gastrointestinal: Denies abdominal pain Genitourinary Genitourinary ED: Denies dysuria Musculoskeletal Musculoskeletal: Denies myalgias Integumentary Denies rash Neurologic Neurologic: Denies headache(s) Psychiatric Psychiatric: Denies depression Endocrine Endocrinology: Denies polyuria Allergic/Immunologic Allergic/Immunologic ED: Denies urticaria EXAM Physical Exam Narrative Exam Narrative: 60-year-old female no acute distress. Vital signs stable afebrile. Pulse ox 95% on room air no hypoxia. HEENT exam unremarkable atraumatic. Moist mucous membranes. Neck nontender no lymphadenopathy. No meningismus. No signs of trauma on her face or scalp. Lungs clear to auscultation. Heart regular rhythm rate about 90 no murmur. Chest were nontender. Abdomen obese but soft. She has diffuse bruising over abdominal wall. It is mildly tender. There are no peritoneal signs. She is moving all 4 extremities. They are nontender. Trace bilateral lower extremity edema. Left chest has a dialysis Vas-Cath. Back nontender. Neurologically she is awake and alert. She is answering questions. She is following commands. She is moving all 4 extremities. There is no motor deficit. She knows day, month, year. She does not know the president eyes states but states she dormant normally does not know that. She does know that she is at the hospital. Const Vital Signs: 06/15/21 18:51 06/15/21 20:50 06/15/21 22:07 Temperature 98.2 F Temperature Source Temporal Pulse Rate 89 79 85 Respiratory Rate 16 15 15 Blood Pressure 163/67 H 163/81 H 157/61 H Blood Pressure Mean 99 108 93 Pulse Ox 95 96 96 Oxygen Delivery Method Room Air Room Air Room Air Positive well nourished, well developed and obese; Negative for cachectic, contractures or unkempt General Appearance ED: well developed and NAD; Negative for unkempt, cachectic, contractures, cyanotic, diaphoretic or pallor Nutritional Appearance: obese; Negative for cachectic HEENT Reports moist mucous membranes tenderness; Negative for trauma Eyes PERRL and EOMs intact bilaterally General Eye ED: Negative for pale conjunctiva or scleral icterus Neck no lymphadenopathy, supple and no JVD General: Negative for tenderness Chest Wall inspection of chest normal and palpation of chest normal Chest Narrative: Left chest wall Vas-Cath Resp normal respiratory effort and clear to auscultation bilaterally Effort and Inspection: Negative for pain with movement Auscultation: Negative for rales, rhonchi, wheezes or diminished lung sounds Cardio regular rate, regular rhythm, S1 normal heart sound, S2 normal heart sound and no murmurs GI normal to inspection, nondistended, normoactive bowel sounds, non-distended and no masses; Negative for non-tender GI Narrative: Diffuse abdominal wall bruising. No peritoneal signs. Mildly tender. Auscultation: normoactive bowel sounds Palpation: soft and tender Back/Spine no CVA tenderness General Back: Negative for CVA tenderness Cervical Spine: Negative for cervical spine tenderness Thoracic Spine / Upper Back: Negative for thoracic spinal tenderness or paraspinal muscle tenderness Lumbar Spine / Lower Back: Negative for lumbar spinal tenderness Extremity Negative for normal to inspection Extremity Narrative: Moving all 4 extremities. Trace edema both lower extremities. Nontender. No deformity. General Extremety ED: Yes edema; Negative for tenderness General Extremity: edema Neuro oriented x3 Sensorium / Orientation: alert; Negative for orientation impaired, lethargic or stuporous Motor Exam: strength 5/5 throughout Psych mental status grossly normal Appearance: Negative for unkempt Attitude: No agitated Mood & Affect: Negative for depressed, anxious or tearful Skin no rashes or lesions noted and no wounds General Skin Exam: Negative for jaundice or pallor MDM MDM MDM Narrative Medical decision making narrative: 60-year-old female with reported confusion. She has extensive past medical history. She undergo screening labs the CAT scan of her head and abdomen due to the abdominal wall bruising. Repeat exam patient is resting comfortably in bed at 10:35 PM. Awaiting CAT scan results and urinalysis. Lab Data Attestation: I reviewed the patient's lab results. Lab results narrative: CBC shows a white count of 5.1. H&H 11 and 33. Platelets are slightly low at 130,000. PT/INR PTT are normal. Electrolytes show sodium 128. Gap of 8. She is dialysis patient and her BUN and creatinine are 54 and 5.6. Glucose of 244. Liver enzymes unremarkable alkaline phosphatase elevated to 12. These are consistent with other labs the patient's head. Labs: Laboratory Results - last 24 hr 06/15/21 06/15/21 06/15/21 21:15 21:15 21:15 WBC 5.1 RBC 3.46 L Hgb 11.1 L Hct 33.1 L MCV 95.7 MCH 32.1 H MCHC 33.5 RDW Std Deviation 44.6 H RDW Coeff of Angela 12.9 Plt Count 138 L MPV 10.3 Immature Gran % (Auto) 0.400 Neut % (Auto) 71.6 H Lymph % (Auto) 13.8 L [place] % (Auto) 10.3 H Eos % (Auto) 3.5 Baso % (Auto) 0.4 Absolute Neuts (auto) 3.7 Absolute Lymphs (auto) 0.71 L Nucleated RBC % 0 PT 13.0 INR 1.0 APTT 29.0 Sodium 128 L Potassium 4.1 Chloride 94 L Carbon Dioxide 26.0 Anion Gap 8 BUN 54 H Creatinine 5.60 H Estim Creat Clear Calc 9.46 Est GFR (MDRD) Af Amer 10 L Est GFR (MDRD) Non-Af 8 L BUN/Creatinine Ratio 9.6 L Glucose 244 H Calcium 8.8 Total Bilirubin 0.30 AST 18 ALT 31 Alkaline Phosphatase 212 H Total Protein 7.8 Albumin 3.5 Globulin 4.3 H Albumin/Globulin Ratio 0.8 L Radiography Chest X-Ray - ED: 1 View, Read by ED Physician, Heart, Lungs, Mediastinum, Bony Structures, No Acute Disease and Chronic Changes Diagnostic Testing: Clinical Impression(s) from Imaging Studies Chest X-Ray 06/15/21 20:50 IMPRESSION: Mild central pulmonary venous congestion. Electronically Signed: Hank Espitia MD at 22:11 EST , Chest x-ray, portable, single view interpreted by myself shows no acute abnormality. Left-sided Vas-Cath. No infiltrate. Rhythm Strip Rhythm Strip: Sinus Rhythm Rate: 76 Ectopy: None EKG Initial EKG: Attestation: I personally reviewed and interpreted this EKG as follows: Interpretation: Sinus Rhythm and No Acute Injury Pattern Comments: Normal sinus rhythm rate of 76 no acute signs of IA or ischemia. No dysrhythmia. When compared to her prior EKG from 2020 no significant change. Prior EKG tracings: available for review Prior: Unchanged Discharge Plan Triage Chief Complaint: Confusion ED Provider: Phoenix Narvaez Dx/Rx/DC Orders Prescriptions: No Action aspirin [Adult Aspirin Regimen] 81 mg tablet,delayed release (DR/EC) 81 mg PO DAILY RF: 0 promethazine 25 MG tablet 25 mg PO Q8H PRN PRN (Reason: Nausea) RF: 0 carvedilol 6.25 MG tablet 6.25 mg PO BID RF: 0 nitroglycerin 0.4 MG tablet, sublingual 0.4 mg sublingual Q5M PRN (Reason: CHEST PAIN) RF: 0 calcium acetate(phosphat bind) 667 MG capsule 1,334 mg PO TIDCM RF: 0 bupropion HCl 300 MG tablet extended release 24 hr 300 mg PO QHS RF: 0 gabapentin 300 MG capsule 300 mg PO TID RF: 0 tizanidine 2 MG capsule 2 mg PO TID PRN PRN (Reason: muscle relaxant) RF: 0 insulin lispro 100 UNIT/ML insulin pen 20 unit subcut TIDAC Qty: 0 RF: 0 furosemide 40 mg tablet 40 mg PO BID RF: 0 sennosides [senna] 8.6 mg tablet 17.2 mg PO BID RF: 0 guaifenesin [Adult Tussin Chest Congestion] 100 mg/5 mL liquid 200 mg PO Q4H PRN (Reason: Cough) RF: 0 acetaminophen [Tylenol 8 Hour] 650 mg Tablet Extended Release 650 mg PO Q6H RF: 0 magnesium oxide 400 mg (241.3 mg magnesium) tablet 400 mg PO DAILY RF: 0 sertraline 25 mg tablet 25 mg PO QHS RF: 0 Triphrocaps 1 mg capsule 1 cap PO DAILY RF: 0 letrozole 2.5 mg tablet 2.5 mg PO DAILY RF: 0 albuterol sulfate 90 mcg/actuation HFA aerosol inhaler 2 puff INHALATION Q4H PRN (Reason: sob) RF: 0 loratadine 10 mg tablet 10 mg PO DAILY RF: 0 insulin glargine 100 UNITS/ML insulin pen 27 units subcut QHS RF: 0 insulin lispro [Humalog KwikPen Insulin] 100 unit/mL Insulin Pen See Protocol unit subcut ACHS Qty: 0 RF: 0 losartan 50 MG tablet 100 mg PO DAILY Qty: 0 RF: 0 levothyroxine 200 mcg tablet 200 mcg PO DAILY RF: 0 Primary Care Provider: Iban Eldridge
[2021-06-15 20:50] VITALS: BP 163/81; PULSE 79; RESP 15; O2SAT 96
--- NOTE | 2021-06-15 20:50 | RAD_ITS ---
INDICATION: ms smith EXAMINATION/TECHNIQUE: X-RAY - XR Chest 1 View COMPARISON: 12/25/2020. FINDINGS: Mild central pulmonary venous congestion. The cardiomediastinal silhouette is unremarkable. Left-sided hemodialysis catheter. No pleural effusion or pneumothorax. No acute osseous abnormalities. RAD/Chest 1 View (Portable) IMPRESSION: Mild central pulmonary venous congestion. Electronically Signed: Hank Espitia MD at 22:11 EST ,
[2021-06-15 21:28] LABS: Absolute Lymphocyte Count 0.71 X10^3/uL (0.83-4.51); Absolute Neutrophil Count 3.7 X10^3/uL (2.0-7.7); Basophil# 0.02 X10^3/uL; Basophil% 0.4 % (0-1); Eosinophil# 0.18 X10^3/uL; Eosinophils% 3.5 % (0-5); Hematocrit 33.1 % (37-47); Hemoglobin 11.1 g/dL (12.0-15.0); Lymphocyte # 0.71 X10^3/ul (0.83-4.51); Lymphocyte % 13.8 % (19-41); Mean Corp Hgb Conc 33.5 g/dL (32-36); Mean Corpuscular Hgb 32.1 pg (27.0-32.0); Mean Corpuscular Volume 95.7 fL (81-99); Mean Platelet Vol. 10.3 fl (6.2-12.0); Monocyte# 0.53 X10^3/uL; Monocyte% 10.3 % (0-10); NRBC Flagged by Analyzer 0 % (0-5); Neutrophil # 3.68 X10^3/uL (2.7-7.7); Neutrophil % 71.6 % (47-70); Platelet Count 138 K/mm3 (150-450); RBC Distribution Width CV 12.9 % (11.6-14.6); RBC Distribution Width SD 44.6 fl (35.1-43.9); Red Blood Count 3.46 M/mm3 (4.2-5.4); White Blood Count 5.1 K/mm3 (4.4-11.0)
[2021-06-15 21:48] LABS: ALB/GLOB Ratio 0.8 RATIO (0.9-2.4); AST(SGOT) 18 U/L (15-37); Alanine Aminotransfer ALT/SGPT 31 U/L (13-56); Albumin, Serum 3.5 g/dL (3.2-5.0); Alkaline Phosphatase 212 U/L (45-117); Anion Gap 8 (5-15); BUN 54 mg/dL (7-18); BUN/Creat Ratio 9.6 RATIO (10-20); Calcium,Total 8.8 mg/dL (8.5-10.1); Chloride 94 mmol/L (98-107); EST Glomerular Filtration Rate 8 mL/min (>60); Est Glom Filt Rate - Afr Amer 10 mL/min (>60); Estimated Creatinine Clearance 9.46 ml/min; Globulin 4.3 g/dL (2.2-4.2); Glucose 244 mg/dL (74-106); Potassium 4.1 mmol/L (3.5-5.1); Protein, Total 7.8 g/dL (6.4-8.2); Sodium Level 128 mmol/L (136-145)
[2021-06-15 22:07] VITALS: BP 157/61; PULSE 85; RESP 15; O2SAT 96
--- NOTE | 2021-06-15 22:08 | ED.RN ---
abdiel nathan is leaving. we are to call imani [phone]
--- NOTE | 2021-06-15 22:53 | ED.RN ---
bedside commode placed in the room. urine cup given. pt urinated into commode and missed cup. dr leon. straight cath ordered. chapo mckeon rn [id number]
[2021-06-15 23:10] LABS: Mucous, Urine 0 SEEN /hpf (<or=2+)
[2021-06-15 23:22] VITALS: BP 150/48; PULSE 77; RESP 15; O2SAT 96
[2021-06-15 23:55] LABS: Color, Urine Yellow (Yellow); Glucose, Dipstick 100 mg/dl (Normal); Ketone-Dipstick Negative (Negative); Leukocyte Esterase-Dipstick 500 /ul (Negative); Nitrite-Dipstick Negative (Negative); Occult Blood-Urine 150 /ul (Negative); Protein-Dipstick 500 mg/dl (Negative); Urine Bilirubin Dipstick Negative (Negative); Urine Clarity Sl. Cloudy (Clear); Urine Urobilinogen Normal (Normal)
[2021-06-16 00:04] LABS: Red Blood Cells-Urine 10-25 SEEN /hpf (0-5); White Blood Cells >100 SEEN /hpf (0-5)
[2021-06-16 00:05] LABS: Bacteria 4+ /hpf (None Seen); Squamous Epithelial Cells - UA 0-5 SEEN /hpf (5-10)
[2021-06-16] MEDS: Ceftriaxone 1 GM/50 ML BAG IV (00:50)
[2021-06-16] MEDS: oxyCODONE 5 MG Tablet PO (00:50)
[2021-06-16 01:00] VITALS: BP 155/59; PULSE 76; RESP 13; O2SAT 95
[2021-06-16 01:27] VITALS: PULSE 84; RESP 20; O2SAT 90; O2SAT 94
[2021-06-16] MEDS: Ondansetron 4 MG/2 ML Vial IV (01:53)
[2021-06-16 02:14] VITALS: BP 131/57; PULSE 75; RESP 16; O2SAT 95
== END 2021-06-16 02:23 | disposition home or self-care (01) ==
PROVIDERS: Emergency Provider Emergency Medicine; PCP Family Medicine; Visit Provider Emergency Medicine
DX: R53.1 Weakness (principal); Z99.2 Dependence on renal dialysis; N18.6 End stage renal disease; N30.90 Cystitis, unspecified without hematuria; I25.10 Atherosclerotic heart disease of native coronary artery without angina pectoris; F17.200 Nicotine dependence, unspecified, uncomplicated; E66.9 Obesity, unspecified
CPT/HCPCS: 70450; 71045; 74177; 80053; 81001; 85025; 85610; 85730; 87077; 87086; 87088; 87186; 93005; 96365; 96375; 99285; J7050; Q9967; A4216; J2405

== ENCOUNTER 2021-07-18 12:29 | Observation (INO) | payer MEDICARE, MEDICAID, SELFPAY ==
[2021-07-18 12:30] VITALS: BP 151/57; PULSE 73; RESP 18; TEMP 36.1; O2SAT 96; BMI 42.2
[2021-07-18 13:00] VITALS: BP 159/72
--- NOTE | 2021-07-18 13:13 | EKG12_ITS ---
Test Reason : VOMIT Blood Pressure : / mmHG Vent. Rate : 074 BPM Atrial Rate : 074 BPM P-R Int : 176 ms QRS Dur : 092 ms QT Int : 414 ms P-R-T Axes : 025 013 140 degrees QTc Int : 459 ms Normal sinus rhythm Low voltage QRS Nonspecific T wave abnormality Abnormal ECG Confirmed by MARLENI SANTOS, RUSTAM ([id number]), story editor MAVIS DYE ([id number]) on 07/22/2021 11:23:20 AM Referred By: CHERELLE Confirmed By:RUSTAM YEPEZ MD
--- NOTE | 2021-07-18 13:17 | EDS_ITS ---
HPI HPI - GI History of Present Illness Chief Complaint: Nausea/Vomiting Informant: patient Abdominal Pain/Flank Pain Maximum Severity: 0/10 (NO abd pains) Nausea/Vomiting/Emesis GI Symptom: Positive for Nausea and Vomiting Onset: Weeks (1) Quality: Positive for Nonbilious; Negative for Blood streaks, Coffee ground and Hematemesis Severity: Moderate (About 3 times per day) Diarrhea/Melena/Hematochezia GI Symptom: Positive for - (having BMs, they are normal); Negative for Diarrhea, Melena and Hematochezia Associated Symptoms Associated Symptoms: Positive for - (Oliguric, urinates 3 or 4 times per day, no changes recently); Negative for Dysuria, Frequency, Hematuria and Urgency Narrative Narrative: Patient has end-stage renal disease and is on dialysis, she missed dialysis today because I was sick, and presents here because of vomiting several times per day for the past week. She denies having any abdominal pain, diarrhea, fevers, thoracic symptoms. Denies any known sick contacts, she has not traveled out of the area recently, no suspicious food intake. She has been lightheaded with standing multiple times over the past week and as a result, has fallen 5-10 times total. She denies any vertiginous symptoms or headaches or vision changes or syncope. Last month she had a urinary tract infection, she had no urinary symptoms with that but she was confused, that is not the case at this time. She had no GI symptoms and then. She took the antibiotics, she did not complete the course of them, but her symptoms resolved and she has been feeling fine until the last week. Patient has a history of breast cancer with metastases to the lungs, she denies any cough or shortness of breath or chest discomfort recently, and she currently is not undergoing chemotherapy or other treatments for her breast cancer. Sees Dr. Beck for Nephrology. Upon entering the room, she is actively eating a sandwich from [employer]. [facility] Medical History (Updated 07/18/21 @ 15:26 by Aggie Fair) Back pain Breast cancer CAD (coronary artery disease) Cancer Cardiology follow-up encounter Chronic kidney disease with end stage renal failure on dialysis Chronic pain Congestive heart failure (CHF) Depression Diabetes DM2 (diabetes mellitus, type 2) DVT (deep venous thrombosis) ESRD (end stage renal disease) History of echocardiogram History of pain when walking History of renal dialysis History of renal disease HTN (hypertension) Hypertension Hyponatremia Hypothyroidism Injury of head and neck Insulin dependent diabetes mellitus Kidney disease Problem with dialysis access Shortness of breath on exertion Smoker Thyroid disease Type 2 diabetes mellitus VTE (venous thromboembolism) Wears glasses Home Medications promethazine 25 mg PO Q8H PRN PRN 05/14/13 [History Last Taken Unknown] carvedilol 6.25 mg PO BID 08/13/19 [History Last Taken 08/27/20] bupropion HCl 300 mg PO QHS 12/21/19 [History Last Taken 08/27/20] calcium acetate(phosphat bind) 1,334 mg PO TIDCM 12/21/19 [History Last Taken 08/27/20] nitroglycerin 0.4 mg SUBLINGUAL Q5M PRN 12/21/19 [History Last Taken Unknown] gabapentin 300 mg PO TID 01/19/20 [History Last Taken 08/27/20] tizanidine 2 mg PO TID PRN PRN 01/19/20 [History Last Taken Unknown] insulin lispro 20 unit SUBCUT TIDAC #0 01/23/20 [Rx Last Taken 08/27/20] Triphrocaps 1 cap PO DAILY 08/28/20 [History Last Taken 08/27/20] acetaminophen [Tylenol 8 Hour] 650 mg PO Q6H 08/28/20 [History Last Taken 08/27/20] albuterol sulfate 2 puff INHALATION Q4H PRN 08/28/20 [History Last Taken 08/27/20] furosemide 40 mg PO BID 08/28/20 [History Last Taken 08/27/20] guaifenesin [Adult Tussin Chest Congestion] 200 mg PO Q4H PRN 08/28/20 [History Last Taken Unknown] insulin glargine 27 units SUBCUT QHS 08/28/20 [History Last Taken 08/27/20] letrozole 2.5 mg PO DAILY 08/28/20 [History Last Taken 08/27/20] loratadine 10 mg PO DAILY 08/28/20 [History Last Taken 08/27/20] magnesium oxide 400 mg PO DAILY 08/28/20 [History Last Taken 08/27/20] sennosides [senna] 17.2 mg PO BID 08/28/20 [History Last Taken 08/27/20] sertraline 25 mg PO QHS 08/28/20 [History Last Taken 08/27/20] insulin lispro [Humalog KwikPen Insulin] See Protocol SUBCUT ACHS #0 ml 09/05/20 [Rx Last Taken Unknown] losartan 100 mg PO DAILY #0 tab 09/05/20 [Rx Last Taken 08/27/20] levothyroxine 200 mcg PO DAILY 11/19/20 [History Last Taken Unknown] aspirin 81 mg tablet,delayed release 81 mg PO DAILY 03/25/21 [History Last Taken Unknown] cephalexin 500 mg PO Q12 #14 cap 06/16/21 [Rx Last Taken Unknown] ondansetron 4 mg PO Q8H PRN #10 tab 06/16/21 [Rx Last Taken Unknown] Allergy/AdvReac Type Severity Reaction Status Date / Time codeine phosphate Allergy Swelling Verified 07/18/21 12:30 [From Tylenol-Codeine #3] simvastatin [From Zocor] Allergy Other Verified 07/18/21 12:30 Family History Mother Diabetes Kidney disease CVA (cerebral vascular accident) Father Heart disease Mother Diabetes Surgical History History of cardiac catheterization History of heart artery stent History of right mastectomy S/P dialysis catheter insertion Social History household members: family Smoking Status: Heavy Smoker (>10/day) alcohol intake: never substance use type: does not use ROS ROS ED Constitutional Constitutional ED: Denies chills or fever(s) Eyes Eyes: Denies change in vision or diplopia ENT ENT ED: Denies rhinorrhea or sore throat Cardiovascular Cardiovascular: Denies chest pain or palpitations Respiratory/Chest Respiratory/Chest: Denies cough or dyspnea Gastrointestinal Gastrointestinal: Reports nausea and vomiting; Denies abdominal pain or diarrhea Genitourinary Genitourinary ED: Denies dysuria or hematuria Musculoskeletal Musculoskeletal: Denies back pain or neck pain Integumentary Denies abscess or rash Neurologic Neurologic: Denies headache(s), paresthesias or weakness Psychiatric Psychiatric: Denies anxiety or suicidal thoughts EXAM Physical Exam Const Vital Signs: 07/18/21 12:30 Temperature 96.9 F L Temperature Source Temporal Pulse Rate 73 Respiratory Rate 18 Blood Pressure 151/57 H Blood Pressure Mean 88 Pulse Ox 96 Oxygen Delivery Method Room Air Positive well nourished and well developed Constitutional Narrative: Well-appearing, eating a sandwich General Appearance ED: well developed and NAD Nutritional Appearance: morbidly obese HEENT Reports moist mucous membranes normocephalic and atraumatic Eyes PERRL and EOMs intact bilaterally Neck full ROM and supple Resp normal respiratory effort and clear to auscultation bilaterally Cardio regular rate, regular rhythm and no murmurs GI non-tender and non-distended GI Narrative: Exam somewhat limited by obesity Auscultation: normoactive bowel sounds Palpation: soft Back/Spine no CVA tenderness General Back: other FROM Extremity normal to inspection General Extremety ED: Yes edema; Negative for pulses abnormal or tenderness General Extremity: edema bilateral lower extremity Details: mild (Chronic appearing symmetric with changes of stasis, no acute infection/tenderness); Negative for pulses abnormal Neuro oriented x3, CN's II-XII intact bilaterally and no sensory deficits noted Sensorium / Orientation: awake and alert Motor Exam: strength 5/5 throughout Skin no rashes or lesions noted and no wounds MDM MDM MDM Narrative Medical decision making narrative: Patient was treated with Zofran, while we were working her up. She still felt nauseated, we had her stop eating her sandwich in the meantime. She did not vomit, still felt nauseated and was given Mylanta additionally. Her sodium is lower than normal, she usually is in the 129 range today 124. She states she is about 10 pounds over her dry weight, but since she is not dyspneic or clinically fluid overloaded, will start some slow ceiling to help her sodium level which may be related to her symptoms. She states that she has been admitted to a [place] [facility] before, and she wants to be again if she qualifies to help care for herself as she is having so much trouble at home. Lab Data Attestation: I reviewed the patient's lab results. Labs: Laboratory Results - last 24 hr 07/18/21 07/18/21 07/18/21 12:44 12:44 14:35 WBC 7.6 RBC 3.19 L Hgb 10.3 L Hct 29.9 L MCV 93.7 MCH 32.3 H MCHC 34.4 RDW Std Deviation 44.5 H RDW Coeff of Angela 12.9 Plt Count 165 MPV 10.1 Immature Gran % (Auto) 0.400 Neut % (Auto) 72.8 H Lymph % (Auto) 12.3 L [place] % (Auto) 9.9 Eos % (Auto) 4.2 Baso % (Auto) 0.4 Absolute Neuts (auto) 5.5 Absolute Lymphs (auto) 0.93 Nucleated RBC % 0 Sodium 124 L Potassium 3.7 Chloride 89 L Carbon Dioxide 27.0 Anion Gap 8 BUN 41 H Creatinine 4.31 H Estim Creat Clear Calc 12.29 Est GFR (MDRD) Af Amer 14 L Est GFR (MDRD) Non-Af 11 L BUN/Creatinine Ratio 9.5 L Glucose 127 H Calcium 8.7 Troponin I High Sens 22 Urine Color Yellow Urine Clarity Clear Urine pH 6.5 Ur Specific [place] 1.015 Urine Protein 500 H Urine Glucose (UA) 100 H Urine Ketones Negative Urine Occult Blood 25 H Urine Nitrite Positive H Urine Bilirubin Negative Urine Urobilinogen Normal Ur Leukocyte Esterase Negative Urine RBC 0 SEEN Urine WBC 0 SEEN Ur Squamous Epith Cells 5-10 SEEN Urine Bacteria 0 SEEN Urine Mucus 0 SEEN EKG Initial EKG: Attestation: I personally reviewed and interpreted this EKG as follows: Interpretation: Sinus Rhythm and No Acute Injury Pattern Comments: Anteroseptal Q waves without acute injury pattern. Inferolateral flattening of T waves without inversions. Prior EKG tracings: available for review Prior: Unchanged Discharge Plan Dx/Rx/DC Orders Clinical Impression: Hyponatremia with excess extracellular fluid volume, ESRD on hemodialysis, Generalized weakness, Declining functional status, Multiple falls, Vomiting Disposition [facility]
[2021-07-18 13:43] LABS: Absolute Lymphocyte Count 0.93 X10^3/uL (0.83-4.51); Absolute Neutrophil Count 5.5 X10^3/uL (2.0-7.7); Basophil# 0.03 X10^3/uL; Basophil% 0.4 % (0-1); Eosinophil# 0.32 X10^3/uL; Eosinophils% 4.2 % (0-5); Hematocrit 29.9 % (37-47); Hemoglobin 10.3 g/dL (12.0-15.0); Lymphocyte # 0.93 X10^3/ul (0.83-4.51); Lymphocyte % 12.3 % (19-41); Mean Corp Hgb Conc 34.4 g/dL (32-36); Mean Corpuscular Hgb 32.3 pg (27.0-32.0); Mean Corpuscular Volume 93.7 fL (81-99); Mean Platelet Vol. 10.1 fl (6.2-12.0); Monocyte# 0.75 X10^3/uL; Monocyte% 9.9 % (0-10); NRBC Flagged by Analyzer 0 % (0-5); Neutrophil # 5.49 X10^3/uL (2.7-7.7); Neutrophil % 72.8 % (47-70); Platelet Count 165 K/mm3 (150-450); RBC Distribution Width CV 12.9 % (11.6-14.6); RBC Distribution Width SD 44.5 fl (35.1-43.9); Red Blood Count 3.19 M/mm3 (4.2-5.4); White Blood Count 7.6 K/mm3 (4.4-11.0)
[2021-07-18 14:04] LABS: Anion Gap 8 (5-15); BUN 41 mg/dL (7-18); BUN/Creat Ratio 9.5 RATIO (10-20); Calcium,Total 8.7 mg/dL (8.5-10.1); Chloride 89 mmol/L (98-107); Creatinine, Serum 4.31 mg/dL (0.55-1.02); EST Glomerular Filtration Rate 11 mL/min (>60); Est Glom Filt Rate - Afr Amer 14 mL/min (>60); Estimated Creatinine Clearance 12.29 ml/min; Glucose 127 mg/dL (74-106); Potassium 3.7 mmol/L (3.5-5.1); Sodium Level 124 mmol/L (136-145); Troponin-I HS 22 pg/mL (3.0-54.0)
[2021-07-18] MEDS: Ondansetron 4 MG/2 ML Vial IV (14:13)
[2021-07-18 14:44] LABS: Bacteria 0 SEEN /hpf (None Seen); Mucous, Urine 0 SEEN /hpf (<or=2+); Red Blood Cells-Urine 0 SEEN /hpf (0-5); White Blood Cells 0 SEEN /hpf (0-5)
[2021-07-18 14:50] LABS: Color, Urine Yellow (Yellow); Glucose, Dipstick 100 mg/dl (Normal); Ketone-Dipstick Negative (Negative); Leukocyte Esterase-Dipstick Negative /ul (Negative); Nitrite-Dipstick Positive (Negative); Occult Blood-Urine 25 /ul (Negative); Protein-Dipstick 500 mg/dl (Negative); Specific Gravity, Urine 1.015 (1.002-1.030); Urine Bilirubin Dipstick Negative (Negative); Urine Clarity Clear (Clear); Urine Urobilinogen Normal (Normal); Urine pH 6.5 (5.0 - 8.0)
[2021-07-18 14:56] LABS: Squamous Epithelial Cells - UA 5-10 SEEN /hpf (5-10)
[2021-07-18] MEDS: Mag Hydrox/Al Hydrox/Simeth 30 ML UDC PO (15:07)
[2021-07-18] MEDS: 0.9% Normal Saline 1,000 ML 150 ML IV (15:13)
--- NOTE | 2021-07-18 15:54 | NURSING ---
DR DREW FOR DR VILLARREAL
--- NOTE | 2021-07-18 16:00 | NURSING ---
MED SURG OBS [place] ESRD, VOMITING
--- NOTE | 2021-07-18 16:01 | PCM.HP.STD ---
HPI - General General Date of Admission: 07/18/21 HPI Narrative FÉLIX PARKINSON, is a 60 F who presents to the hospital with supposed nausea and vomiting for the last week or so. She skipped her dialysis today because she felt sick. Creatinine is at baseline for her and in terms of her nausea and vomiting evaluation she was reportedly eating a sandwich in the ER, then on my evaluation when she got to the floor she was also eating. Family states that they are having significant difficulty with managing her at home as she is extremely weak and incapable of taking care of herself. As hers of her nausea and vomiting, this does appear to be a chronic issue with her where she has an episode of vomiting once a week or so. Further work-up in the ER did not elucidate any etiology for her nausea or vomiting. Her weakness is likely related to her chronic medical issues. [facility] Medical History (Updated 07/18/21 @ 15:26 by Aggie Fair) Back pain Breast cancer CAD (coronary artery disease) Cancer Cardiology follow-up encounter Chronic kidney disease with end stage renal failure on dialysis Chronic pain Congestive heart failure (CHF) Depression Diabetes DM2 (diabetes mellitus, type 2) DVT (deep venous thrombosis) ESRD (end stage renal disease) History of echocardiogram History of pain when walking History of renal dialysis History of renal disease HTN (hypertension) Hypertension Hyponatremia Hypothyroidism Injury of head and neck Insulin dependent diabetes mellitus Kidney disease Problem with dialysis access Shortness of breath on exertion Smoker Thyroid disease Type 2 diabetes mellitus VTE (venous thromboembolism) Wears glasses Home Medications promethazine 25 mg PO Q8H PRN PRN 05/14/13 [History Last Taken Unknown] carvedilol 6.25 mg PO BID 08/13/19 [History Last Taken 07/18/21] bupropion HCl 300 mg PO DAILY 12/21/19 [History Last Taken 07/18/21] calcium acetate(phosphat bind) 1,334 mg PO TIDCM 12/21/19 [History Last Taken 07/18/21] nitroglycerin 0.4 mg SUBLINGUAL Q5M PRN 12/21/19 [History Last Taken Unknown] gabapentin 300 mg PO TID 01/19/20 [History Last Taken 07/18/21] tizanidine 2 mg PO TID PRN PRN 01/19/20 [History Last Taken 07/17/21] insulin lispro 20 unit SUBCUT TIDAC #0 01/23/20 [Rx Last Taken 08/27/20] Triphrocaps 1 cap PO DAILY 08/28/20 [History Last Taken 2 Days Ago ~07/16/21] albuterol sulfate 2 puff INHALATION Q4H PRN 08/28/20 [History Last Taken 08/27/20] insulin glargine 27 units SUBCUT BID 08/28/20 [History Last Taken 07/18/21] letrozole 2.5 mg PO DAILY 08/28/20 [History Last Taken 07/18/21] loratadine 10 mg PO DAILY 08/28/20 [History Last Taken 07/17/21] magnesium oxide 400 mg PO DAILY 08/28/20 [History Last Taken 07/17/21] sertraline 25 mg PO QHS 08/28/20 [History Last Taken 07/17/21] insulin lispro [Humalog KwikPen Insulin] See Protocol SUBCUT ACHS #0 ml 09/05/20 [Rx Last Taken Unknown] levothyroxine 200 mcg PO DAILY 11/19/20 [History Last Taken 07/18/21] ondansetron 4 mg PO Q8H PRN #10 tab 06/16/21 [Rx Last Taken Unknown] furosemide 80 mg PO BID 07/18/21 [History Last Taken 07/18/21] tramadol 50 mg PO Q6H PRN 07/18/21 [History Last Taken 07/18/21] Allergy/AdvReac Type Severity Reaction Status Date / Time codeine phosphate Allergy Swelling Verified 07/18/21 12:30 [From Tylenol-Codeine #3] simvastatin [From Zocor] Allergy Other Verified 07/18/21 12:30 Family History Mother Diabetes Kidney disease CVA (cerebral vascular accident) Father Heart disease Mother Diabetes Surgical History History of cardiac catheterization History of heart artery stent History of right mastectomy S/P dialysis catheter insertion Social History household members: family Smoking Status: Heavy Smoker (>10/day) alcohol intake: never substance use type: does not use ROS Constitutional Constitutional: Denies chills, fatigue, fever(s) or malaise Eyes Eyes: Denies blurry vision ENT HEENT: Denies headache(s) or nasal discharge Cardiovascular Cardiovascular: Denies chest pain, dyspnea on exertion or syncope Respiratory/Chest Respiratory/Chest: Denies cough, shortness of breath at rest or shortness of breath with exertion Gastrointestinal Gastrointestinal: Reports nausea and vomiting; Denies constipation or diarrhea Genitourinary Genitourinary: Denies dysuria Neurologic Neurologic: Denies focal weakness, numbness or tremor(s) Psychiatric Psychiatric: Denies anxiety or depression Vital Signs Vital Signs Vital Signs: 07/18/21 12:30 Temperature 96.9 F L Temperature Source Temporal Pulse Rate 73 Respiratory Rate 18 Blood Pressure 151/57 H Blood Pressure Mean 88 Pulse Ox 96 Oxygen Delivery Method Room Air Weight Weight: 246 lb Body Mass Index (BMI) 42.2 Physical Exam Const alert, oriented x3 and no apparent distress General Appearance: cooperative HEENT normocephalic Mouth: dry mucous membranes Eyes PERRL, EOMs intact bilaterally and conjunctivae normal Neck supple and no JVD Resp normal respiratory effort, no retractions, no use of accessory muscles and clear to auscultation bilaterally Auscultation: Negative for crackles, rales, rhonchi or wheezes Cardio regular rate, regular rhythm, S1 normal heart sound, S2 normal heart sound and no murmurs GI soft to palpation, non-tender and non-distended; Negative for hepatosplenomegaly Extremity General Extremity: edema; Negative for clubbing or cyanosis Skin no rashes or lesions noted Neuro no focal motor deficits and no sensory deficits noted Psych affect normal Appearance: appropriate Results Lab / Micro Data Result Diagrams: 07/19/21 06:46 07/19/21 06:46 Labs: Laboratory Results - last 24 hr 07/18/21 12:44: WBC 7.6, RBC 3.19 L, Hgb 10.3 L, Hct 29.9 L, MCV 93.7, MCH 32.3 H, MCHC 34.4, RDW Std Deviation 44.5 H, RDW Coeff of Angela 12.9, Plt Count 165, MPV 10.1, Immature Gran % (Auto) 0.400, Neut % (Auto) 72.8 H, Lymph % (Auto) 12.3 L, [place] % (Auto) 9.9, Eos % (Auto) 4.2, Baso % (Auto) 0.4, Absolute Neuts (auto) 5.5, Absolute Lymphs (auto) 0.93, Nucleated RBC % 0 07/18/21 12:44: Sodium 124 L, Potassium 3.7, Chloride 89 L, Carbon Dioxide 27.0, Anion Gap 8, BUN 41 H, Creatinine 4.31 H, Estim Creat Clear Calc 12.29, Est GFR (MDRD) Af Amer 14 L, Est GFR (MDRD) Non-Af 11 L, BUN/Creatinine Ratio 9.5 L, Glucose 127 H, Calcium 8.7, Troponin I High Sens 07/18/21 14:35: Urine Color Yellow, Urine Clarity Clear, Urine pH 6.5, Ur Specific [place] 1.015, Urine Protein 500 H, Urine Glucose (UA) 100 H, Urine Ketones Negative, Urine Occult Blood 25 H, Urine Nitrite Positive H, Urine Bilirubin Negative, Urine Urobilinogen Normal, Ur Leukocyte Esterase Negative, Urine RBC 0 SEEN, Urine WBC 0 SEEN, Ur Squamous Epith Cells 5-10 SEEN, Urine Bacteria 0 SEEN, Urine Mucus 0 SEEN Assessment & Plan Assessment/Plan (1) Vomiting: PLAN: 1. Nausea and vomiting/debility and inability to complete adls -no significant clinical indications as to etiology -she was tolerating a diet in the ED -renal function is at baseline, c/w lasix -no diarrhea associated, will have PT/OT evaluate for possible placement and discharge planning 2. ESRD on dialysis/DM 2 -Will need to consult nephrology for dialysis since she skipped today -We will continue with her home Lasix, no IV fluids -continue with her home insulin, will monitor Accu-Cheks AC at bedtime 3. HTN/HLD -Blood pressures are stable, will continue with losartan and Lasix -Continue with Coreg -Sodium is stable at 124, which is around her baseline 4. Hypothyroidism -Stable -Continue with Synthroid 5. Anxiety/depression -Stable -Continue with Zoloft and Wellbutrin DVT: Ambulation Charges/Coding Visit Charges OBSV E&M: 07036 Initial observation care L2
[2021-07-18 16:36] VITALS: BP 159/50; PULSE 77; RESP 18; O2SAT 96
[2021-07-18 16:37] VITALS: BP 159/50; PULSE 77; RESP 18; TEMP 36.1; O2SAT 96
--- NOTE | 2021-07-18 16:58 | CM.ED ---
Addendum entered by Genna Martinez 07/18/21 17:22: HD: Marla Posadas, M/W/F, Chair start: 1045. Transport gets patient around 1000. H/o Breast CA w/Mets to lungs. AYLEEN Kruger Original Note: RN CM Assessment Introduced role of RN CM to patient and niece Urvashi Benton at bedside.? Patient is alert, oriented and able?to participate in RN CM Assessment. ?Care providers, pharmacy, and demographics verified. Admit Dx: OBS for Debility Re-Admit: No Barriers/Issues: Lengthy discussion with patient and her niece Urvashi at bedside. Niece reports interest in finding out more about Palliative Care and Hospice care as patient has voiced that she is tired of HD and living like this. Lost her 3 years ago. H/o depression- already on a couple antidepressants. Voices some thought to wanting to be comfort only and questions with Hospice homes, etc. States Dr Eldridge recommends consult. Per Niece- Patient fell approx a week ago and prescribed Tramadol for hip pain in which she is almost finished with. Has a H/o chronic back pain that she does not take pain medication for. Niece requesting PT evaluate patient with and without pain medication to see the difference. States that patient does better with pain medication but needing to see how she does without pain medication as she is not normally on anything to see how her baseline is. Her baseline is 10-20 feet at home (from lift chair to bathroom). Patient missed two HD sessions last week and missed HD session today d/t not feeling well- N/v. Per niece has not seen her vomit but once. Per ER MD note, patient was eating crossvertise. Patient appears non-compliant with health regimen/management. Patient asking this scientific technical writer for pain medication upon finishing IA. PCP: Iban Eldridge Specialists: Cardio at [facility]- has not seen in a long time Preferred Pharmacy: [facility] Insurance: AKANKSHA Lockwood Rx Benefit:?Yes LNOK: Abdiel Benton LW/HPOA: Has AD and niece Urvashi states that she will bring them in to scan on file. HPOA- Nimelissa Benton. Living Arrangements:? Lives with abdiel Landin and and Urvashi's in a SSH. No steps to enter home. ADL?s: Total assist by Niece. Amb w/FWW 10-20 feet at baseline (from lift chair to bathroom) Transportation: Niece and uses [facility] Transport to HD DME: FWW, Ray [employer], [employer]cometer, SC, TSR, Lift Chair HHC: Past SNF: Past: [facility], [facility][1], [facility] (does not want to return), [facility] (does not want to return). Goal: Wanting to go to SNF- wanting to go to [facility] in [place] if in network. Per Niece there is a SNF that has on site HD in [place] which is not far from them. DC PLAN: SNF with HD coordination vs Hospice- Hospice Home vs Home w/Palliative care. Maria E Martinez RNCM
[2021-07-18 17:47] VITALS: BMI 45.8
[2021-07-18 17:49] VITALS: BP 108/78; PULSE 80; RESP 16; TEMP 36.6; O2SAT 94
[2021-07-18 18:25] LABS: Bedside Glucose 131 mg/dL (74-106)
[2021-07-18] MEDS: traMADol 50 MG Tablet PO (18:32)
[2021-07-18] MEDS: Insulin Lispro 100 UNIT/ML INSULN.PEN 20 UNIT SC (18:32)
[2021-07-18] MEDS: Acetaminophen 325 MG Tablet 650 MG PO (18:32)
[2021-07-18] MEDS: Calcium Acetate 667 MG Capsule 1334 MG PO (19:01)
[2021-07-18] MEDS: Sertraline 50 MG Tablet 25 MG PO (21:45)
[2021-07-18] MEDS: Carvedilol 6.25 MG Tablet PO (21:45)
[2021-07-18] MEDS: Gabapentin 300 MG Capsule PO (21:45)
[2021-07-18] MEDS: buPROPion (XL) 300 MG TABLET.XL PO (21:45)
[2021-07-18] MEDS: Furosemide 80 MG Tablet PO (21:45)
[2021-07-18] MEDS: Senna Tablet 2 TABLET PO (21:46)
[2021-07-18 21:51] LABS: Bedside Glucose 81 mg/dL (74-106)
[2021-07-18 23:50] VITALS: BP 109/43; PULSE 80; RESP 20; TEMP 36.7; O2SAT 95
[2021-07-19] MEDS: traMADol 50 MG Tablet PO ×3 (00:40→20:44)
[2021-07-19] MEDS: Acetaminophen 325 MG Tablet 650 MG PO ×4 (00:41→18:53)
[2021-07-19 01:36] LABS: Bedside Glucose 51 mg/dL (74-106)
[2021-07-19 01:36] LABS: Bedside Glucose 72 mg/dL (74-106)
[2021-07-19 01:36] LABS: Bedside Glucose 57 mg/dL (74-106)
[2021-07-19 05:50] VITALS: BP 125/56; PULSE 69; RESP 20; TEMP 36.8; O2SAT 95
[2021-07-19] MEDS: Levothyroxine 100 MCG Tablet 200 MCG PO (06:17)
[2021-07-19] MEDS: Gabapentin 300 MG Capsule PO ×3 (06:17→20:44)
[2021-07-19 06:26] LABS: Bedside Glucose 93 mg/dL (74-106)
[2021-07-19 06:57] LABS: Absolute Lymphocyte Count 1.18 X10^3/uL (0.83-4.51); Basophil# 0.02 X10^3/uL; Basophil% 0.3 % (0-1); Eosinophil# 0.38 X10^3/uL; Eosinophils% 5.1 % (0-5); Hematocrit 27.5 % (37-47); Hemoglobin 9.8 g/dL (12.0-15.0); Lymphocyte # 1.18 X10^3/ul (0.83-4.51); Lymphocyte % 15.9 % (19-41); Mean Corp Hgb Conc 35.6 g/dL (32-36); Mean Corpuscular Hgb 32.8 pg (27.0-32.0); Mean Platelet Vol. 9.7 fl (6.2-12.0); Monocyte# 0.81 X10^3/uL; Monocyte% 10.9 % (0-10); NRBC Flagged by Analyzer 0 % (0-5); Neutrophil # 4.99 X10^3/uL (2.7-7.7); Neutrophil % 67.5 % (47-70); Platelet Count 155 K/mm3 (150-450); RBC Distribution Width CV 12.8 % (11.6-14.6); RBC Distribution Width SD 43.2 fl (35.1-43.9); Red Blood Count 2.99 M/mm3 (4.2-5.4); White Blood Count 7.4 K/mm3 (4.4-11.0)
[2021-07-19 07:27] LABS: Anion Gap 10 (5-15); BUN 48 mg/dL (7-18); BUN/Creat Ratio 10.2 RATIO (10-20); Calcium,Total 8.5 mg/dL (8.5-10.1); Chloride 88 mmol/L (98-107); Creatinine, Serum 4.71 mg/dL (0.55-1.02); EST Glomerular Filtration Rate 10 mL/min (>60); Est Glom Filt Rate - Afr Amer 12 mL/min (>60); Estimated Creatinine Clearance 11.24 ml/min; Glucose 88 mg/dL (74-106); Potassium 4.3 mmol/L (3.5-5.1); Sodium Level 123 mmol/L (136-145)
[2021-07-19] MEDS: Calcium Acetate 667 MG Capsule 1334 MG PO ×3 (07:57→18:50)
[2021-07-19] MEDS: Aspirin E.C. 81 MG Tablet PO (07:57)
--- NOTE | 2021-07-19 08:44 | PN.HOSP_ITS ---
Subjective Subjective No issues overnight, no further episodes of nausea or vomiting. We will have her evaluated by PT/OT Objective Data Objective Data Vital Signs: Vital Signs Temp Pulse Resp BP Pulse Ox 98.2 F 69 20 H 125/56 H 95 07/19/21 05:50 07/19/21 05:50 07/19/21 05:50 07/19/21 05:50 07/19/21 05:50 Oxygen Delivery Method Room Air Weight: 266 lb 14.407 oz Body Mass Index (BMI) 45.8 Intake & Output: Intake and Output for Last 24 Hours 07/18/21 07/19/21 07/20/21 03:59 03:59 03:59 Intake Total 1012 / 1012 Output Total 100 / 100 50 / 50 Balance 912 / 912 -50 / -50 Lab / Micro Data Result Diagrams: 07/19/21 06:46 07/19/21 06:46 Labs: Laboratory Results - last 24 hr 07/18/21 12:44: WBC 7.6, RBC 3.19 L, Hgb 10.3 L, Hct 29.9 L, MCV 93.7, MCH 32.3 H, MCHC 34.4, RDW Std Deviation 44.5 H, RDW Coeff of Anglea 12.9, Plt Count 165, MPV 10.1, Immature Gran % (Auto) 0.400, Neut % (Auto) 72.8 H, Lymph % (Auto) 12.3 L, [place] % (Auto) 9.9, Eos % (Auto) 4.2, Baso % (Auto) 0.4, Absolute Neuts (auto) 5.5, Absolute Lymphs (auto) 0.93, Nucleated RBC % 0 07/18/21 12:44: Sodium 124 L, Potassium 3.7, Chloride 89 L, Carbon Dioxide 27.0, Anion Gap 8, BUN 41 H, Creatinine 4.31 H, Estim Creat Clear Calc 12.29, Est GFR (MDRD) Af Amer 14 L, Est GFR (MDRD) Non-Af 11 L, BUN/Creatinine Ratio 9.5 L, G lucose 127 H, Calcium 8.7, Troponin I High Sens 07/18/21 14:35: Urine Color Yellow, Urine Clarity Clear, Urine pH 6.5, Ur Specific [place] 1.015, Urine Protein 500 H, Urine Glucose (UA) 100 H, Urine Ketones Negative, Urine Occult Blood 25 H, Urine Nitrite Positive H, Urine Bilirubin Negative, Urine Urobilinogen Normal, Ur Leukocyte Esterase Negative, Urine RBC 0 SEEN, Urine WBC 0 SEEN, Ur Squamous Epith Cells 5-10 SEEN, Urine Bacteria 0 SEEN, Urine Mucus 0 SEEN 07/18/21 18:20: POC Glucose 131 H 07/18/21 21:38: POC Glucose 81 07/19/21 00:39: POC Glucose 51 L 07/19/21 00:58: POC Glucose 57 L 07/19/21 01:23: POC Glucose 72 L 07/19/21 06:15: POC Glucose 93 07/19/21 06:46: WBC 7.4, RBC 2.99 L, Hgb 9.8 L, Hct 27.5 L, MCV 92.0, MCH 32.8 H , MCHC 35.6, RDW Std Deviation 43.2, RDW Coeff of Angela 12.8, Plt Count 155, MPV 9.7, Immature Gran % (Auto) 0.300, Neut % (Auto) 67.5, Lymph % (Auto) 15.9 L, [place] % (Auto) 10.9 H, Eos % (Auto) 5.1 H, Baso % (Auto) 0.3, Absolute Neuts (auto) 5.0, Absolute Lymphs (auto) 1.18, Nucleated RBC % 0 07/19/21 06:46: Sodium 123 L, Potassium 4.3, Chloride 88 L, Carbon Dioxide 25.0, Anion Gap 10, BUN 48 H, Creatinine 4.71 H, Estim Creat Clear Calc 11.24, Est GFR (MDRD) Af Amer 12 L, Est GFR (MDRD) Non-Af 10 L, BUN/Creatinine Ratio 10.2, Glucose 88, Calcium 8.5 Physical Exam Const alert, oriented x3 and no apparent distress General Appearance: cooperative HEENT moist oral mucous membranes Head and Scalp: normocephalic Eyes PERRL, EOMs intact bilaterally and conjunctivae normal Neck supple and no JVD Resp normal respiratory effort, no retractions, no use of accessory muscles and clear to auscultation bilaterally Auscultation: Negative for crackles, rales, rhonchi or wheezes Cardio regular rate, regular rhythm, S1 normal heart sound, S2 normal heart sound and no murmurs GI soft to palpation, non-tender and non-distended; Negative for hepatosplenomegaly Extremity General Extremity: edema; Negative for clubbing or cyanosis Skin no rashes or lesions noted Neuro no focal motor deficits and no sensory deficits noted Psych affect normal Appearance: appropriate Assessment & Plan Assessment/Plan (1) Vomiting: PLAN: 1. Nausea and vomiting/debility and inability to complete adls -no significant clinical indications as to etiology -she was tolerating a diet in the ED -renal function is at baseline, c/w lasix -no diarrhea associated, will have PT/OT evaluate for possible placement and discharge planning 2. ESRD on dialysis/DM 2 -Will need to consult nephrology for dialysis since she skipped today -We will continue with her home Lasix, no IV fluids -continue with her home insulin, will monitor Accu-Cheks AC at bedtime 3. HTN/HLD -Blood pressures are stable, will continue with losartan and Lasix -Continue with Coreg -Sodium is stable at 124, which is around her baseline 4. Hypothyroidism -Stable -Continue with Synthroid 5. Anxiety/depression -Stable -Continue with Zoloft and Wellbutrin DVT: Ambulation Charges/Coding Visit Charges OBSV E&M: 47246 Subsequent observation care L2
[2021-07-19] MEDS: Magnesium Chloride 64 MG Delay Rel.Tablet 128 MG PO (09:35)
[2021-07-19] MEDS: Carvedilol 6.25 MG Tablet PO ×2 (09:35→20:45)
[2021-07-19] MEDS: Loratadine 10 MG Tablet PO (09:35)
[2021-07-19] MEDS: Furosemide 80 MG Tablet PO ×2 (09:35→18:50)
[2021-07-19] MEDS: Folic Acid/Vitamin B Comp W-C 1 Capsule 1 CAP PO (09:35)
--- NOTE | 2021-07-19 10:22 | CASEMGMT ---
FLORI YU in to discuss LOWRY form with patient. FLORI YU explained LOWRY form, patient voiced understanding. Pt signed form and filed in chart. Pt provided with a copy of signed LOWRY form. Pt sitting up in bed in no distress. Therapy has not yet worked with pt. Pt states she would like to be trf'd to a SNF s/t. Made her aware, will notify SW. Notified Vika CONLEY. Patient had no further questions or concerns at this time.
[2021-07-19 11:31] VITALS: BP 114/44; PULSE 79; RESP 18; TEMP 36.7; O2SAT 97
[2021-07-19 11:51] LABS: Bedside Glucose 141 mg/dL (74-106)
--- NOTE | 2021-07-19 12:17 | CM.ED ---
Addendum entered by Vika Berry 07/19/21 16:59: ANAHY faxed referral packet to [facility] in [facility]. Plan: SNF [facility] DE [facility] Original Note: ANAHY Note Referral Source: RN/ CM Referral Reason: Placement SW met with patient. Patient reports she wants to go to [facility] in [facility] for SNF placement. Patient reports she has been there before. Patient said that her sister resides in [place]. SW provided list of SNF options in [facility] and advised patient that she can also have list of SNF in [facility] but patient declined stating I know where I want to go. ANAHY called [facility] SNF and spoke to Nae, marketing secretary. The fax for the facility is [phone]. The admission worker is Liz. Nae said that admission staff is not in during the weekend but this scientific technical writer advised that this scientific technical writer will fax referral packet over the weekend. Plan: SNF [facility]
[2021-07-19 15:18] VITALS: BP 164/85; PULSE 79; RESP 18; TEMP 36.4; O2SAT 96
[2021-07-19 17:06] LABS: Bedside Glucose 106 mg/dL (74-106)
--- NOTE | 2021-07-19 18:19 | CON.PCM.RE_ITS ---
Assessment & Plan Assessment/Plan (1) ESRD on hemodialysis: PLAN: -The patient normally dialyzes at [facility] on MWF schedule. She missed dialysis yesterday because of presentation to the hospital. -We have arranged for dialysis today. -I supervised the dialysis. Were using F1 80 dialyzer, 3.5-hour treatment, blood flow of 400. -The patient appears to be volume overloaded. Next dialysis will be on 07/22/19. We will remove more fluid at that time. (2) Hypertension: QUALIFIERS: Hypertension type: unspecified Qualified Code(s): I10 - Essential (primary) hypertension PLAN: -Fluid removal with dialysis today should help blood pressure control. -Continue current antihypertensives. (3) Problem with dialysis access: QUALIFIERS: Encounter type: initial encounter Qualified Code(s): T82.898A - Other specified complication of vascular prosthetic devices, implants and grafts, initial encounter PLAN: -The patient has been followed by Dr. Barth for chronic swelling of her left arm. She was just seen by Dr. Barth on 06/24/2021. -Plan has been made for solution to this problem. (4) Nausea & vomiting: PLAN: -Resolved. -As per hospital medicine service. (5) Declining functional status: HPI Consult Data Date of Consult: 07/19/21 HPI Narrative Reason for Consultation: ESRD and dialysis management. HPI Narrative: The patient is a 60-year-old woman who is known to our service with history of ESRD, type 2 diabetes mellitus, hypertension, and hypothyroidism. The patient presented to the hospital on 07/18/2021 with intractable nausea and vomiting for 1 week. The patient denied abdominal pain, diarrhea, or fever. The patient has also been unsteady on her feet, falling 5- 10 times in the past week. There has been no headache, vertigo, or syncope. Because of her presentation to the hospital, the patient did miss her dialysis yesterday. She normally dialyzes at [facility] on a MWF schedule. The patient was seen during dialysis today. She denies chest pain, shortness of breath or lightheadedness. Nausea has resolved. The patient does have a chronic left arm swelling. She denies pain of the arm, but swelling has been progressively worsening in the past month. [facility] Medical History (Updated 07/19/21 @ 18:[address] Maicol Domínguez MD) Back pain Breast cancer CAD (coronary artery disease) Cancer Cardiology follow-up encounter Chronic kidney disease with end stage renal failure on dialysis Chronic pain Congestive heart failure (CHF) Depression Diabetes DM2 (diabetes mellitus, type 2) DVT (deep venous thrombosis) ESRD (end stage renal disease) History of echocardiogram History of pain when walking History of renal dialysis History of renal disease HTN (hypertension) Hypertension Hyponatremia Hypothyroidism Injury of head and neck Insulin dependent diabetes mellitus Kidney disease Problem with dialysis access Shortness of breath on exertion Smoker Thyroid disease Type 2 diabetes mellitus VTE (venous thromboembolism) Wears glasses Home Medications promethazine 25 mg PO Q8H PRN PRN 05/14/13 [History Last Taken Unknown] carvedilol 6.25 mg PO BID 08/13/19 [History Last Taken 07/18/21] bupropion HCl 300 mg PO DAILY 12/21/19 [History Last Taken 07/18/21] calcium acetate(phosphat bind) 1,334 mg PO TIDCM 12/21/19 [History Last Taken 07/18/21] nitroglycerin 0.4 mg SUBLINGUAL Q5M PRN 12/21/19 [History Last Taken Unknown] gabapentin 300 mg PO TID 01/19/20 [History Last Taken 07/18/21] tizanidine 2 mg PO TID PRN PRN 01/19/20 [History Last Taken 07/17/21] insulin lispro 20 unit SUBCUT TIDAC #0 01/23/20 [Rx Last Taken 08/27/20] Triphrocaps 1 cap PO DAILY 08/28/20 [History Last Taken 2 Days Ago ~07/16/21] albuterol sulfate 2 puff INHALATION Q4H PRN 08/28/20 [History Last Taken ] insulin glargine 27 units SUBCUT BID 08/28/20 [History Last Taken 07/18/21] letrozole 2.5 mg PO DAILY 08/28/20 [History Last Taken 07/18/21] loratadine 10 mg PO DAILY 08/28/20 [History Last Taken 07/17/21] magnesium oxide 400 mg PO DAILY 08/28/20 [History Last Taken 07/17/21] sertraline 25 mg PO QHS 08/28/20 [History Last Taken 07/17/21] insulin lispro [Humalog KwikPen Insulin] See Protocol SUBCUT ACHS #0 ml 09/05/20 [Rx Last Taken Unknown] levothyroxine 200 mcg PO DAILY 11/19/20 [History Last Taken 07/18/21] ondansetron 4 mg PO Q8H PRN #10 tab 06/16/21 [Rx Last Taken Unknown] furosemide 80 mg PO BID 07/18/21 [History Last Taken 07/18/21] tramadol 50 mg PO Q6H PRN 07/18/21 [History Last Taken 07/18/21] Allergy/AdvReac Type Severity Reaction Status Date / Time codeine phosphate Allergy Swelling Verified 07/18/21 12:30 [From Tylenol-Codeine #3] simvastatin [From Zocor] Allergy Other Verified 07/18/21 12:30 Family History Mother Diabetes Kidney disease CVA (cerebral vascular accident) Father Heart disease Mother Diabetes Surgical History History of cardiac catheterization History of heart artery stent History of right mastectomy S/P dialysis catheter insertion Social History household members: family Smoking Status: Heavy Smoker (>10/day) alcohol intake: never substance use type: does not use ROS ROS Narrative 01/26 ROS was done which was otherwise noncontributory. Physical Exam Narrative General: Alert and oriented x3. No apparent distress. HEENT: Normocephalic, atraumatic. Mucous membrane moist. Neck: Supple, no JVD. Heart: Normal S1, S2. No rubs, murmurs or gallops. Lungs: Clear to auscultation anteriorly. Abdomen: Obese, normal bowel sound, soft, nontender, no guarding or rebound. Extremity: No clubbing, cyanosis, or edema of lower extremity. Left arm is swollen and is firm to palpation. Musculoskeletal: Full passive range of motion. No joint swelling. Psychiatric: Normal mood and affect. Skin: No rash. Skin is warm and dry. Lab / Micro Data Result Diagrams: 07/19/21 06:46 07/19/21 06:46 Labs: Laboratory Results - last 24 hr 07/18/21 18:20: POC Glucose 131 H 07/18/21 21:38: POC Glucose 81 07/19/21 00:39: POC Glucose 51 L 07/19/21 00:58: POC Glucose 57 L 07/19/21 01:23: POC Glucose 72 L 07/19/21 06:15: POC Glucose 93 07/19/21 06:46: WBC 7.4, RBC 2.99 L, Hgb 9.8 L, Hct 27.5 L, MCV 92.0, MCH 32.8 H , MCHC 35.6, RDW Std Deviation 43.2, RDW Coeff of Angela 12.8, Plt Count 155, MPV 9.7, Immature Gran % (Auto) 0.300, Neut % (Auto) 67.5, Lymph % (Auto) 15.9 L, [place] % (Auto) 10.9 H, Eos % (Auto) 5.1 H, Baso % (Auto) 0.3, Absolute Neuts (auto) 5.0, Absolute Lymphs (auto) 1.18, Nucleated RBC % 0 07/19/21 06:46: Sodium 123 L, Potassium 4.3, Chloride 88 L, Carbon Dioxide 25.0, Anion Gap 10, BUN 48 H, Creatinine 4.71 H, Estim Creat Clear Calc 11.24, Est GFR (MDRD) Af Amer 12 L, Est GFR (MDRD) Non-Af 10 L, BUN/Creatinine Ratio 10.2, Glucose 88, Calcium 8.5 07/19/21 11:34: POC Glucose 141 H 07/19/21 16:56: POC Glucose 106
[2021-07-19] MEDS: Heparin 10,000 UNITS/10 ML Vial 5000 UNITS IV (18:53)
--- NOTE | 2021-07-19 19:23 | DIALYSIS ---
HD x 3.5 hours complete. Tolerated tx well. Ran on 3k bath. UF of 4000ml. Used left chest wall dialysis catheter. Lumens closed with heparin per fill volume. Caps placed. Dressing is dry and intact. Report was given to FLORI Armendariz.
[2021-07-19 20:41] VITALS: BP 147/72; PULSE 88; RESP 20; TEMP 36.6; O2SAT 92
[2021-07-19] MEDS: buPROPion (XL) 300 MG TABLET.XL PO (20:45)
[2021-07-19] MEDS: Sertraline 50 MG Tablet 25 MG PO (20:45)
[2021-07-19] MEDS: Insulin Glargine-YFGN 100 UNIT/ML Pen 27 UNIT SC (20:53)
[2021-07-19] MEDS: tiZANidine HCl 2 MG Tablet PO (21:04)
[2021-07-19] MEDS: 0.9% Normal Saline 100 ML IV.SOLN. 200 ML IV (21:07)
[2021-07-19 23:10] LABS: Bedside Glucose 189 mg/dL (74-106)
[2021-07-19 23:59] VITALS: BP 121/62; PULSE 82; RESP 16; TEMP 36.9; O2SAT 93
[2021-07-20] MEDS: Acetaminophen 325 MG Tablet 650 MG PO ×5 (00:03→23:56)
[2021-07-20 05:15] VITALS: BP 116/55; PULSE 74; RESP 18; TEMP 36.4; O2SAT 96
[2021-07-20] MEDS: traMADol 50 MG Tablet PO ×4 (05:19→23:57)
[2021-07-20] MEDS: Gabapentin 300 MG Capsule PO ×3 (05:20→21:53)
[2021-07-20] MEDS: Levothyroxine 100 MCG Tablet 200 MCG PO (05:20)
[2021-07-20 06:59] LABS: Absolute Lymphocyte Count 0.83 X10^3/uL (0.83-4.51); Absolute Neutrophil Count 3.3 X10^3/uL (2.0-7.7); Basophil# 0.02 X10^3/uL; Basophil% 0.4 % (0-1); Eosinophil# 0.21 X10^3/uL; Eosinophils% 4.2 % (0-5); Hematocrit 26.4 % (37-47); Hemoglobin 9.2 g/dL (12.0-15.0); Lymphocyte # 0.83 X10^3/ul (0.83-4.51); Lymphocyte % 16.5 % (19-41); Mean Corp Hgb Conc 34.8 g/dL (32-36); Mean Corpuscular Hgb 32.9 pg (27.0-32.0); Mean Corpuscular Volume 94.3 fL (81-99); Monocyte# 0.64 X10^3/uL; Monocyte% 12.7 % (0-10); NRBC Flagged by Analyzer 0 % (0-5); Neutrophil # 3.31 X10^3/uL (2.7-7.7); Neutrophil % 65.8 % (47-70); Platelet Count 130 K/mm3 (150-450); RBC Distribution Width CV 12.8 % (11.6-14.6); RBC Distribution Width SD 44.5 fl (35.1-43.9)
[2021-07-20 07:30] LABS: Anion Gap 7 (5-15); BUN 31 mg/dL (7-18); BUN/Creat Ratio 8.8 RATIO (10-20); Calcium,Total 8.5 mg/dL (8.5-10.1); Chloride 96 mmol/L (98-107); Creatinine, Serum 3.51 mg/dL (0.55-1.02); EST Glomerular Filtration Rate 14 mL/min (>60); Est Glom Filt Rate - Afr Amer 17 mL/min (>60); Estimated Creatinine Clearance 15.09 ml/min; Glucose 86 mg/dL (74-106); Potassium 4.1 mmol/L (3.5-5.1); Sodium Level 128 mmol/L (136-145)
[2021-07-20 08:00] LABS: Bedside Glucose 53 mg/dL (74-106)
[2021-07-20 08:26] LABS: Bedside Glucose 111 mg/dL (74-106)
[2021-07-20] MEDS: Magnesium Chloride 64 MG Delay Rel.Tablet 128 MG PO (10:12)
[2021-07-20] MEDS: Calcium Acetate 667 MG Capsule 1334 MG PO ×3 (10:13→17:45)
[2021-07-20] MEDS: Carvedilol 6.25 MG Tablet PO ×2 (10:13→21:49)
[2021-07-20] MEDS: Folic Acid/Vitamin B Comp W-C 1 Capsule 1 CAP PO (10:13)
[2021-07-20] MEDS: Loratadine 10 MG Tablet PO (10:13)
[2021-07-20] MEDS: Aspirin E.C. 81 MG Tablet PO (10:13)
[2021-07-20] MEDS: Furosemide 80 MG Tablet PO ×2 (10:13→17:45)
[2021-07-20 11:06] VITALS: BP 122/68; PULSE 76; RESP 16; TEMP 36.8; O2SAT 97
[2021-07-20 11:21] LABS: Bedside Glucose 122 mg/dL (74-106)
--- NOTE | 2021-07-20 12:11 | PN.HOSP_ITS ---
Subjective Subjective Doing well, no issues overnight. She did undergo dialysis yesterday creatinine is improved Objective Data Objective Data Vital Signs: Vital Signs Temp Pulse Resp BP Pulse Ox 98.2 F 76 16 122/68 H 97 07/20/21 11:06 07/20/21 11:06 07/20/21 11:06 07/20/21 11:06 07/20/21 11:06 Oxygen Delivery Method Room Air Weight: 266 lb 14.407 oz Body Mass Index (BMI) 45.8 Intake & Output: Intake and Output for Last 24 Hours 07/19/21 07/20/21 07/21/21 03:59 03:59 03:59 Intake Total 1012 / 1012 200 / 200 200 / 200 Output Total 100 / 100 50 / 50 Balance 912 / 912 150 / 150 200 / 200 Lab / Micro Data Result Diagrams: 07/20/21 05:30 07/20/21 05:30 Labs: Laboratory Results - last 24 hr 07/19/21 16:56: POC Glucose 106 07/19/21 20:49: POC Glucose 189 H 07/20/21 05:30: WBC 5.0, RBC 2.80 L, Hgb 9.2 L, Hct 26.4 L, MCV 94.3, MCH 32.9 H , MCHC 34.8, RDW Std Deviation 44.5 H, RDW Coeff of Angela 12.8, Plt Count 130 L, MPV 10.0, Immature Gran % (Auto) 0.400, Neut % (Auto) 65.8, Lymph % (Auto) 16.5 L, Rutherford % (Auto) 12.7 H, Eos % (Auto) 4.2, Baso % (Auto) 0.4, Absolute Neuts (auto) 3.3, Absolute Lymphs (auto) 0.83, Nucleated RBC % 0 07/20/21 05:30: Sodium 128 L, Potassium 4.1, Chloride 96 L, Carbon Dioxide 25.0, Anion Gap 7, BUN 31 H, Creatinine 3.51 H, Estim Creat Clear Calc 15.09, Est GFR (MDRD) Af Amer 17 L, Est GFR (MDRD) Non-Af 14 L, BUN/Creatinine Ratio 8.8 L, Glucose 86, Calcium 8.5 07/20/21 07:56: POC Glucose 53 L 07/20/21 08:22: POC Glucose 111 H 07/20/21 11:14: POC Glucose 122 H Micro: Microbiology 07/18/21 14:35 Urine, Clean Catch Urine Culture - Final Mixed Gram Positive Organisms Physical Exam Const alert, oriented x3 and no apparent distress General Appearance: cooperative HEENT moist oral mucous membranes Eyes PERRL, EOMs intact bilaterally and conjunctivae normal Neck supple and no JVD Resp normal respiratory effort, no retractions, no use of accessory muscles and clear to auscultation bilaterally Auscultation: Negative for crackles, rales, rhonchi or wheezes Cardio regular rate, regular rhythm, S1 normal heart sound, S2 normal heart sound and no murmurs GI soft to palpation, non-tender and non-distended; Negative for hepatosplenomegaly Extremity General Extremity: edema; Negative for clubbing or cyanosis Skin no rashes or lesions noted Neuro no focal motor deficits and no sensory deficits noted Psych affect normal Appearance: appropriate Assessment & Plan Assessment/Plan (1) Vomiting: PLAN: 1. Nausea and vomiting/debility and inability to complete adls -no significant clinical indications as to etiology, and chart review of her nausea vomiting does appear to be a chronic issue -she was tolerating a diet in the ED -renal function is at baseline, c/w lasix -no diarrhea associated, will have PT/OT evaluate for possible placement and discharge planning 2. ESRD on dialysis/DM 2 -Will need to consult nephrology for dialysis since she skipped today -We will continue with her home Lasix, no IV fluids -continue with her home insulin, will monitor Accu-Cheks AC at bedtime 3. HTN/HLD -Blood pressures are stable, will continue with losartan and Lasix -Continue with Coreg -Sodium is stable and around her baseline 4. Hypothyroidism -Stable -Continue with Synthroid 5. Anxiety/depression -Stable -Continue with Zoloft and Wellbutrin DVT: Ambulation Charges/Coding Visit Charges Inpatient E&M: 86569 Subs Hosp L2
[2021-07-20] MEDS: tiZANidine HCl 2 MG Tablet PO ×2 (14:21→23:57)
[2021-07-20 16:50] VITALS: BP 112/51; PULSE 69; RESP 16; TEMP 36.7; O2SAT 96
[2021-07-20 17:21] LABS: Bedside Glucose 143 mg/dL (74-106)
--- NOTE | 2021-07-20 20:42 | PCM.PN.REN ---
Subjective Subjective Following for ESRD. The patient complains of back pain. She denies chest pain or shortness of breath. Objective Data Objective Data Vital Signs: Vital Signs Temp Pulse Resp BP Pulse Ox 98.1 F 69 16 112/51 L 96 07/20/21 16:50 07/20/21 16:50 07/20/21 16:50 07/20/21 16:50 07/20/21 16:50 Oxygen Delivery Method Room Air Weight: 121.064 kg Body Mass Index (BMI) 45.8 Intake & Output: Intake and Output for Last 24 Hours 07/18/21 07/19/21 07/20/21 23:59 23:59 23:59 Intake Total 512 / 1012 700 / 700 200 / 200 Output Total 150 / 150 Balance 512 / 912 550 / 550 200 / 200 Lab / Micro Data Result Diagrams: 07/20/21 05:30 07/20/21 05:30 Labs: Laboratory Results - last 24 hr 07/19/21 20:49: POC Glucose 189 H 07/20/21 05:30: WBC 5.0, RBC 2.80 L, Hgb 9.2 L, Hct 26.4 L, MCV 94.3, MCH 32.9 H, MCHC 34.8, RDW Std Deviation 44.5 H, RDW Coeff of Angela 12.8, Plt Count 130 L, MPV 10.0, Immature Gran % (Auto) 0.400, Neut % (Auto) 65.8, Lymph % (Auto) 16.5 L, Weber % (Auto) 12.7 H, Eos % (Auto) 4.2, Baso % (Auto) 0.4, Absolute Neuts (auto) 3.3, Absolute Lymphs (auto) 0.83, Nucleated RBC % 0 07/20/21 05:30: Sodium 128 L, Potassium 4.1, Chloride 96 L, Carbon Dioxide 25.0, Anion Gap 7, BUN 31 H, Creatinine 3.51 H, Estim Creat Clear Calc 15.09, Est GFR (MDRD) Af Amer 17 L, Est GFR (MDRD) Non-Af 14 L, BUN/Creatinine Ratio 8.8 L, Glucose 86, Calcium 8.5 07/20/21 07:56: POC Glucose 53 L 07/20/21 08:22: POC Glucose 111 H 07/20/21 11:14: POC Glucose 122 H 07/20/21 16:47: POC Glucose 143 H Micro: Microbiology 07/18/21 14:35 Urine, Clean Catch Urine Culture - Final Mixed Gram Positive Organisms Physical Exam Narrative General: Alert and oriented x3. No apparent distress. HEENT: Normocephalic, atraumatic. Mucous membrane moist. Neck: Supple, no JVD. Heart: Normal S1, S2. No rubs, murmurs or gallops. Lungs: Clear to auscultation anteriorly. Abdomen: Obese, normal bowel sound, soft, nontender, no guarding or rebound. Extremity: No clubbing, cyanosis, or edema of lower extremity. Left arm is swollen and is firm to palpation. Assessment & Plan Assessment/Plan (1) ESRD on hemodialysis: PLAN: -The patient normally dialyzes at [facility] on MWF schedule. She missed dialysis on 07/18/2021 because of presentation to the hospital. -The patient was dialyzed on 07/19/2021. -No need for dialysis today. I will arrange for dialysis for her tomorrow on her usual MWF schedule. -The patient appears to still be volume overloaded. We will ultrafilter the patient further tomorrow with hemodialysis. (2) Hypertension: QUALIFIERS: Hypertension type: unspecified Qualified Code(s): I10 - Essential (primary) hypertension PLAN: -Fluid removal with dialysis today should help blood pressure control. -Continue current antihypertensives. (3) Problem with dialysis access: QUALIFIERS: Encounter type: initial encounter Qualified Code(s): T82.898A - Other specified complication of vascular prosthetic devices, implants and grafts, initial encounter PLAN: -The patient has been followed by Dr. Barth for chronic swelling of her left arm. She was just seen by Dr. Barth on 06/24/2021. -Plan has been made for solution to this problem. (4) Nausea & vomiting: PLAN: -Resolved. No abdominal pain today. -As per hospital medicine service. (5) Declining functional status:
[2021-07-20 21:46] VITALS: BP 142/90; PULSE 77; RESP 20; TEMP 37; O2SAT 95
[2021-07-20] MEDS: Insulin Glargine-YFGN 100 UNIT/ML Pen 27 UNIT SC (21:50)
[2021-07-20] MEDS: Sertraline 50 MG Tablet 25 MG PO (21:53)
[2021-07-20] MEDS: buPROPion (XL) 300 MG TABLET.XL PO (21:53)
[2021-07-20] MEDS: 0.9% Normal Saline 100 ML IV.SOLN. 200 ML IV (21:54)
[2021-07-20 22:11] LABS: Bedside Glucose 149 mg/dL (74-106)
[2021-07-20 23:52] VITALS: BP 137/67; PULSE 86; RESP 20; TEMP 36.5; O2SAT 97
[2021-07-21 06:13] VITALS: BP 125/50; PULSE 68; RESP 20; TEMP 36.6; O2SAT 97
[2021-07-21] MEDS: Levothyroxine 100 MCG Tablet 200 MCG PO (06:16)
[2021-07-21] MEDS: traMADol 50 MG Tablet PO ×3 (06:20→22:05)
[2021-07-21] MEDS: Acetaminophen 325 MG Tablet 650 MG PO (06:20)
[2021-07-21] MEDS: Gabapentin 300 MG Capsule PO ×2 (06:21→22:02)
[2021-07-21 06:49] LABS: Anion Gap 9 (5-15); BUN 42 mg/dL (7-18); BUN/Creat Ratio 10.3 RATIO (10-20); Calcium,Total 8.1 mg/dL (8.5-10.1); Chloride 89 mmol/L (98-107); Creatinine, Serum 4.07 mg/dL (0.55-1.02); EST Glomerular Filtration Rate 12 mL/min (>60); Est Glom Filt Rate - Afr Amer 15 mL/min (>60); Estimated Creatinine Clearance 13.01 ml/min; Glucose 76 mg/dL (74-106); Potassium 4.2 mmol/L (3.5-5.1); Sodium Level 123 mmol/L (136-145)
--- NOTE | 2021-07-21 07:33 | NURSING ---
Blood sugar is 76 per morning labs. will continue to monitor.
[2021-07-21] MEDS: Magnesium Chloride 64 MG Delay Rel.Tablet 128 MG PO (09:00)
[2021-07-21] MEDS: Calcium Acetate 667 MG Capsule 1334 MG PO ×3 (09:01→17:18)
[2021-07-21] MEDS: Folic Acid/Vitamin B Comp W-C 1 Capsule 1 CAP PO (09:02)
[2021-07-21] MEDS: Furosemide 80 MG Tablet PO ×2 (09:03→17:18)
[2021-07-21] MEDS: Loratadine 10 MG Tablet PO (09:04)
[2021-07-21] MEDS: Carvedilol 6.25 MG Tablet PO ×2 (09:05→22:01)
[2021-07-21] MEDS: Aspirin E.C. 81 MG Tablet PO (09:05)
--- NOTE | 2021-07-21 09:07 | PCM.PN.HOSP ---
Subjective Subjective Doing well, no issues overnight. Awaiting decision on SNF placement Objective Data Objective Data Vital Signs: Vital Signs Temp Pulse Resp BP Pulse Ox 97.9 F 68 20 H 125/50 H 97 07/21/21 06:13 07/21/21 06:13 07/21/21 06:13 07/21/21 06:13 07/21/21 06:13 Oxygen Delivery Method Room Air Weight: 266 lb 14.407 oz Body Mass Index (BMI) 45.8 Intake & Output: Intake and Output for Last 24 Hours 07/20/21 07/21/21 07/22/21 03:59 03:59 03:59 Intake Total 200 / 200 400 / 400 400 / 400 Output Total 50 / 50 Balance 150 / 150 400 / 400 400 / 400 Lab / Micro Data Result Diagrams: 07/20/21 05:30 07/21/21 05:50 Labs: Laboratory Results - last 24 hr 07/20/21 11:14: POC Glucose 122 H 07/20/21 16:47: POC Glucose 143 H 07/20/21 21:48: POC Glucose 149 H 07/21/21 05:50: Sodium 123 L, Potassium 4.2, Chloride 89 L, Carbon Dioxide 25.0, Anion Gap 9, BUN 42 H, Creatinine 4.07 H, Estim Creat Clear Calc 13.01, Est GFR (MDRD) Af Amer 15 L, Est GFR (MDRD) Non-Af 12 L, BUN/Creatinine Ratio 10.3, Glucose 76, Calcium 8.1 L Micro: Microbiology 07/18/21 14:35 Urine, Clean Catch Urine Culture - Final Mixed Gram Positive Organisms Physical Exam Const alert, oriented x3 and no apparent distress General Appearance: cooperative HEENT moist oral mucous membranes Eyes PERRL, EOMs intact bilaterally and conjunctivae normal Neck supple and no JVD Resp normal respiratory effort, no retractions, no use of accessory muscles and clear to auscultation bilaterally Auscultation: Negative for crackles, rales, rhonchi or wheezes Cardio regular rate, regular rhythm, S1 normal heart sound, S2 normal heart sound and no murmurs GI soft to palpation, non-tender and non-distended; Negative for hepatosplenomegaly Extremity General Extremity: edema; Negative for clubbing or cyanosis Skin no rashes or lesions noted Neuro no focal motor deficits and no sensory deficits noted Psych affect normal Appearance: appropriate Assessment & Plan Assessment/Plan (1) Vomiting: PLAN: 1. Nausea and vomiting/debility and inability to complete adls -no significant clinical indications as to etiology, and chart review of her nausea vomiting does appear to be a chronic issue -she was tolerating a diet in the ED -renal function is at baseline, c/w lasix -no diarrhea associated, will have PT/OT evaluate for possible placement and discharge planning 2. ESRD on dialysis/DM 2 -Will need to consult nephrology for dialysis since she skipped today -We will continue with her home Lasix, no IV fluids -continue with her home insulin, will monitor Accu-Cheks AC at bedtime 3. HTN/HLD -Blood pressures are stable, will continue with losartan and Lasix -Continue with Coreg -Sodium is stable and around her baseline 4. Hypothyroidism -Stable -Continue with Synthroid 5. Anxiety/depression -Stable -Continue with Zoloft and Wellbutrin DVT: SCDs Charges/Coding Visit Charges Inpatient E&M: 79472 Subs Hosp L2 OBSV E&M: 26116 Subsequent observation care L2
[2021-07-21 09:13] VITALS: O2SAT 96
[2021-07-21 09:15] VITALS: BP 136/60; PULSE 65; RESP 20; TEMP 36.4; O2SAT 96
--- NOTE | 2021-07-21 09:22 | NURSING ---
Blood sugar is 71 this morning. Pt was dizzy when getting up with physical therapy. Russell juice 1 cup given at this time. Waiting on breakfast to arrive. Pt has already ordered. Will continue to monitor.
[2021-07-21 09:31] LABS: Bedside Glucose 71 mg/dL (74-106)
--- NOTE | 2021-07-21 10:18 | CASEMGMT ---
Social Work Note SW placed a call to [facility] and left message for Liz in admissions regarding referral. ANAHY faxed updated clinicals to [facility]. Plan: SNF pending acceptance and pre-cert Genna Ellington IN [employer]OP SERVICE TECHNICIAN, [employer]
[2021-07-21 10:26] LABS: Bedside Glucose 135 mg/dL (74-106)
--- NOTE | 2021-07-21 11:21 | PCM.PN.REN ---
Subjective Subjective Following for ESRD Resting quietly. Niece at bedside. Patient denies any complaints. Objective Data Objective Data Vital Signs: Vital Signs Temp Pulse Resp BP Pulse Ox 97.6 F L 65 20 H 136/60 H 96 07/21/21 09:15 07/21/21 09:15 07/21/21 09:15 07/21/21 09:15 07/21/21 09:15 Oxygen Delivery Method Room Air Weight: 121.064 kg Body Mass Index (BMI) 45.8 Intake & Output: Intake and Output for Last 24 Hours 07/19/21 07/20/21 07/21/21 23:59 23:59 23:59 Intake Total 700 / 700 200 / 400 600 / 600 Output Total 150 / 150 Balance 550 / 550 200 / 400 600 / 600 Lab / Micro Data Result Diagrams: 07/20/21 05:30 07/21/21 05:50 Labs: Laboratory Results - last 24 hr 07/20/21 11:14: POC Glucose 122 H 07/20/21 16:47: POC Glucose 143 H 07/20/21 21:48: POC Glucose 149 H 07/21/21 05:50: Sodium 123 L, Potassium 4.2, Chloride 89 L, Carbon Dioxide 25.0, Anion Gap 9, BUN 42 H, Creatinine 4.07 H, Estim Creat Clear Calc 13.01, Est GFR (MDRD) Af Amer 15 L, Est GFR (MDRD) Non-Af 12 L, BUN/Creatinine Ratio 10.3, Glucose 76, Calcium 8.1 L 07/21/21 09:13: POC Glucose 71 L 07/21/21 10:23: POC Glucose 135 H Micro: Microbiology 07/18/21 14:35 Urine, Clean Catch Urine Culture - Final Mixed Gram Positive Organisms Physical Exam Narrative General: Alert and oriented x3. No apparent distress. HEENT: Normocephalic, atraumatic. Mucous membrane moist. Neck: Supple, no JVD. Heart: Normal S1, S2. No rubs, murmurs or gallops. Lungs: Clear to auscultation anteriorly. Abdomen: Obese, normal bowel sound, soft, nontender Extremity: Trace edema bilateral lower legs. Left arm is swollen and is firm to palpation; positive bruit left AV fistula. Assessment & Plan Assessment/Plan (1) ESRD on hemodialysis: PLAN: -The patient normally dialyzes at [facility] on MWF schedule. EDW had been 111.5kg, but recently unable to get to dry weight due to patient missing HD and shortening treatments. Admission weight ~121kg. -The patient was dialyzed on 07/19/2021. - patient to dialyze today over 4hr, UF as patient/bp tolerates. Will give sofya with HD today. Last Hgb 9.2. -Continue calcium acetate, will monitor phosphorus levels periodically (2) Hypertension: QUALIFIERS: Hypertension type: unspecified Qualified Code(s): I10 - Essential (primary) hypertension PLAN: -Fluid removal with dialysis today should help blood pressure control. -Continue current antihypertensives, coreg and lasix (3) Problem with dialysis access: QUALIFIERS: Encounter type: initial encounter Qualified Code(s): T82.898A - Other specified complication of vascular prosthetic devices, implants and grafts, initial encounter PLAN: -The patient has been followed by Dr. Barth for chronic swelling of her left arm. She was just seen by Dr. Barth on 06/24/2021. -Plan has been made for solution to this problem. (4) Nausea & vomiting: PLAN: -Resolved. No abdominal pain today. Patient reports has good appetite. -As per hospital medicine service. (5) Declining functional status: PLAN: - discharge planning in progress. Possible ECF at discharge. Discussed with social organization professor
--- NOTE | 2021-07-21 11:40 | CASEMGMT ---
Social Work Note ANAHY updated that pt and pt's niece are present at [facility]. SW spoke with rod buster that pt is requesting a SNF called [facility] in [place]. Home Agent mentioned pt going to [facility] locally in [place]. SW informed Home Agent that [facility] doesn't do on site dialysis for [facility] as they are contracted with [facility]. Home Agent states pt could switch to [facility]. SW in to speak with pt and pt's niece Urvashi present in room. SW spoke with pt and Urvashi regarding discharge plans. Pt confirms her preferred provider is [facility] in [place]. Urvashi asked about pt going to [facility] since they have on site dialysis. SW educated pt on benefits of going to SNF that has on site dialysis as transportation would not be an issue then. Pt states again that her first choice is [facility]. SW informed pt that this worker is waiting for determination from [facility]. Plan: SNF pending acceptance and pre-cert Genna Ellington ASSOCIATE BUYER, RECTIFICATION PRINTER
[2021-07-21 12:36] LABS: Bedside Glucose 115 mg/dL (74-106)
--- NOTE | 2021-07-21 14:28 | CASEMGMT ---
Social Work Note ANAHY received message from Liz at [facility] requesting call back on cell phone ([phone].) ANAHY placed a call to Liz at [facility]. Liz states that due to pt being on dialysis and transportation not being able to be arrange, they cannot accept pt. ANAHY informed Liz that pt does currently receive transportation through [facility]. Liz states they likely will not transport pt from their facility to dialysis in [place]. Liz states that their sister facility, [facility] in [place], does have on site dialysis. SW in to speak with pt. SW introduced self and role at [facility]. SW informed pt that [facility] is not able to accept pt. SW informed pt that there is a SNF in [place] that has on site dialysis and that [facility] mentioned their sister facility [facility] does have on site dialysis. Pt agreeable to referral being sent to [facility]. ANAHY placed a call to Rafita at [facility] and provided referral. ANAHY faxed referral to [facility]. Plan: [facility] pending acceptance and pre-cert. Genna Ellington FLYING SQUAD SALESPERSON, EXPERIMENTAL ELECTRONICS DEVELOPER
[2021-07-21 15:06] LABS: Bedside Glucose 142 mg/dL (74-106)
--- NOTE | 2021-07-21 15:19 | CASEMGMT ---
Social Work Note ANAHY reviewed chart. Pt has been to [facility] before and pt was active with [facility]. ANAHY placed a call to [facility] and spoke with Juan in admissions. Juan states that they do have on site dialysis, they use a company called [facility] for their dialysis. They would just need to switch pt from [facility] to [facility] for the time pt is at SNF. SW in to speak with pt. SW introduced self and role at [facility]. SW informed pt that referral was sent to [facility], waiting for confirmation from them regarding referral. SW informed pt that [facility] is only contracted with [facility] so pt would need to switch from [facility] to [facility]. Pt states understanding, agreeable to switching companies. SW also informed pt that there are some SNF in [place] that would transport pt to Dialysis in [place] if pt would want to continue to receive outpatient dialysis at [facility] instead of doing on site dialysis. Pt states she prefers to continue outpatient dialysis. ANAHY informed pt that the SNF in [place] that may transport pt to and from Dialysis are [facility], [facility] and [facility]. ANAHY reviewed star ratings with pt. Pt states no preference, gave this worker permission to also call [facility] and [facility] to inquire about bed availability. SW asked pt about Mental Health History. Per H+P, pt has Anxiety and Depression and takes Zoloft and Wellbutrin. Pt states she doesn't take any medication for Mental Health and denied any counseling or Mental Health Treatment - no psych hospitalizations. ANAHY placed a call to Jodee at [facility] and provided referral. Jodee confirms that if pt [facility] then [facility] to D[facility]. ANAHY faxed referral to Jodee to review. Plan: SNF pending acceptance and pre-cert Genna Ellington HARDENING MACHINE OPERATOR, VEHICLE LEASING AND RENTAL MANAGER
--- NOTE | 2021-07-21 15:53 | CASEMGMT ---
TC to [facility] to see how to get pt trf'd from their services to another dialysis provider should she choose to go to a SNF that provides on site dialysis. Spoke with Melodie who states that the receiving facility will reach out to [facility] for the records. Pt currently has not been accepted to a facility yet.
[2021-07-21 16:41] LABS: Bedside Glucose 104 mg/dL (74-106)
[2021-07-21 17:00] VITALS: BP 153/66; PULSE 80; RESP 20; TEMP 36.6; O2SAT 96
[2021-07-21] MEDS: Heparin 10,000 UNITS/10 ML Vial 5000 UNITS IV (17:14)
[2021-07-21] MEDS: Epoetin Alfa epbx 10,000 UNITS/ML 10000 UNIT IV (17:14)
--- NOTE | 2021-07-21 17:17 | DIALYSIS ---
HD x 4 hours complete. Tolerated tx well. UF of 5000ml. Used left chest wall dialysis catheter. Lumens closed with heparin per fill volume. Caps placed. Dressing is dry and intact. See tx sheet for more details. Report was given to FLORI Montejo.
[2021-07-21 22:00] VITALS: BP 76/38; PULSE 86; RESP 18; TEMP 36.9; O2SAT 97
[2021-07-21] MEDS: Senna Tablet 2 TABLET PO (22:02)
[2021-07-21] MEDS: buPROPion (XL) 300 MG TABLET.XL PO (22:03)
[2021-07-21] MEDS: Sertraline 50 MG Tablet 25 MG PO (22:03)
[2021-07-21] MEDS: Insulin Glargine-YFGN 100 UNIT/ML Pen 27 UNIT SC (22:19)
[2021-07-21 23:05] LABS: Bedside Glucose 162 mg/dL (74-106)
[2021-07-21 23:20] VITALS: BP 119/73
[2021-07-22] LABS: Bedside Glucose 144 mg/dL (74-106)
[2021-07-22] MEDS: Acetaminophen 325 MG Tablet 650 MG PO ×4 (00:06→18:19)
[2021-07-22] MEDS: Nystatin Powder 15gm Bottle 1 APPLIC TOPICAL ×3 (00:38→20:56)
[2021-07-22] MEDS: oxyCODONE 5 MG Tablet PO ×5 (02:09→21:01)
[2021-07-22 04:29] VITALS: BP 134/66; PULSE 73; RESP 18; TEMP 36.3; O2SAT 95
[2021-07-22 04:29] LABS: Absolute Lymphocyte Count 0.72 X10^3/uL (0.83-4.51); Absolute Neutrophil Count 4.9 X10^3/uL (2.0-7.7); Basophil# 0.04 X10^3/uL; Basophil% 0.6 % (0-1); Eosinophil# 0.32 X10^3/uL; Eosinophils% 4.7 % (0-5); Hematocrit 28.5 % (37-47); Hemoglobin 9.9 g/dL (12.0-15.0); Lymphocyte # 0.72 X10^3/ul (0.83-4.51); Lymphocyte % 10.5 % (19-41); Mean Corp Hgb Conc 34.7 g/dL (32-36); Mean Corpuscular Hgb 32.6 pg (27.0-32.0); Mean Corpuscular Volume 93.8 fL (81-99); Mean Platelet Vol. 9.6 fl (6.2-12.0); Monocyte# 0.82 X10^3/uL; NRBC Flagged by Analyzer 0 % (0-5); Neutrophil # 4.89 X10^3/uL (2.7-7.7); Neutrophil % 71.5 % (47-70); Platelet Count 145 K/mm3 (150-450); RBC Distribution Width CV 12.6 % (11.6-14.6); RBC Distribution Width SD 43.5 fl (35.1-43.9); Red Blood Count 3.04 M/mm3 (4.2-5.4); White Blood Count 6.8 K/mm3 (4.4-11.0)
[2021-07-22 04:45] LABS: Anion Gap 7 (5-15); BUN 24 mg/dL (7-18); BUN/Creat Ratio 8.3 RATIO (10-20); Calcium,Total 8.2 mg/dL (8.5-10.1); Chloride 92 mmol/L (98-107); EST Glomerular Filtration Rate 18 mL/min (>60); Est Glom Filt Rate - Afr Amer 21 mL/min (>60); Estimated Creatinine Clearance 18.26 ml/min; Glucose 149 mg/dL (74-106); Sodium Level 124 mmol/L (136-145)
[2021-07-22] MEDS: Ondansetron ODT 4 MG Tablet PO ×2 (05:18→21:01)
[2021-07-22] MEDS: Levothyroxine 100 MCG Tablet 200 MCG PO (06:16)
[2021-07-22] MEDS: Gabapentin 300 MG Capsule PO ×3 (06:16→20:56)
[2021-07-22 08:07] VITALS: O2SAT 98
[2021-07-22] MEDS: Aspirin E.C. 81 MG Tablet PO (08:35)
[2021-07-22] MEDS: Calcium Acetate 667 MG Capsule 1334 MG PO ×3 (08:35→18:18)
[2021-07-22 08:41] LABS: Bedside Glucose 96 mg/dL (74-106)
--- NOTE | 2021-07-22 10:19 | PCM.PN.REN ---
Subjective Subjective Resting in bed, denies any complaints, denies nausea Objective Data Objective Data Vital Signs: Vital Signs Temp Pulse Resp BP Pulse Ox 97.4 F L 73 18 134/66 H 98 07/22/21 04:29 07/22/21 04:29 07/22/21 04:29 07/22/21 04:29 07/22/21 08:07 Oxygen Delivery Method Room Air Weight: 121.064 kg Body Mass Index (BMI) 45.8 Intake & Output: Intake and Output for Last 24 Hours 07/20/21 07/21/21 07/22/21 23:59 23:59 23:59 Intake Total 200 / 400 1220 / 1620 640 / 640 Output Total 150 / 275 125 / 125 Balance 200 / 400 1070 / 1345 515 / 515 Lab / Micro Data Result Diagrams: 07/22/21 04:13 07/22/21 04:13 Labs: Laboratory Results - last 24 hr 07/21/21 10:23: POC Glucose 135 H 07/21/21 11:58: POC Glucose 115 H 07/21/21 13:59: POC Glucose 142 H 07/21/21 16:35: POC Glucose 104 07/21/21 21:59: POC Glucose 162 H 07/21/21 23:56: POC Glucose 144 H 07/22/21 04:13: WBC 6.8, RBC 3.04 L, Hgb 9.9 L, Hct 28.5 L, MCV 93.8, MCH 32.6 H, MCHC 34.7, RDW Std Deviation 43.5, RDW Coeff of Angela 12.6, Plt Count 145 L, MPV 9.6, Immature Gran % (Auto) 0.700, Neut % (Auto) 71.5 H, Lymph % (Auto) 10.5 L, Bibb % (Auto) 12.0 H, Eos % (Auto) 4.7, Baso % (Auto) 0.6, Absolute Neuts (auto) 4.9, Absolute Lymphs (auto) 0.72 L, Nucleated RBC % 0 07/22/21 04:13: Sodium 124 L, Potassium 4.0, Chloride 92 L, Carbon Dioxide 25.0, Anion Gap 7, BUN 24 H, Creatinine 2.90 H, Estim Creat Clear Calc 18.26, Est GFR (MDRD) Af Amer 21 L, Est GFR (MDRD) Non-Af 18 L, BUN/Creatinine Ratio 8.3 L, Glucose 149 H, Calcium 8.2 L 07/22/21 08:32: POC Glucose 96 Micro: Microbiology 07/18/21 14:35 Urine, Clean Catch Urine Culture - Final Mixed Gram Positive Organisms Physical Exam Narrative General: Alert and oriented x3. No apparent distress. HEENT: Normocephalic, atraumatic. Mucous membrane moist. Neck: Supple, no JVD. Heart: Normal S1, S2. No rubs, murmurs or gallops. Lungs: Clear to auscultation anteriorly. Abdomen: Obese, normal bowel sound, soft, nontender Extremity: Trace edema bilateral lower legs. Left arm is swollen and is firm to palpation; positive bruit left AV fistula. Assessment & Plan Assessment/Plan (1) ESRD on hemodialysis: PLAN: -The patient normally dialyzes at [facility] on MWF schedule. EDW had been 111.5kg, but recently unable to get to dry weight due to patient missing HD and shortening treatments. Admission weight ~121kg. -The patient tolerated dialysis 4/4 with around 4 L UF. No acute location for SOCIAL SERVICE ASSISTANT today. Plan for next dialysis tomorrow over 4hours and attempt fluid removal as patient/blood pressure tolerates. - KANDI with HD 4/4 -Continue calcium acetate, will monitor phosphorus levels periodically (2) Hypertension: QUALIFIERS: Hypertension type: unspecified Qualified Code(s): I10 - Essential (primary) hypertension PLAN: -Fluid removal with dialysis should help blood pressure control. -Continue current antihypertensives, coreg and lasix (3) Problem with dialysis access: QUALIFIERS: Encounter type: initial encounter Qualified Code(s): T82.898A - Other specified complication of vascular prosthetic devices, implants and grafts, initial encounter PLAN: -The patient has been followed by Dr. Barth for chronic swelling of her left arm. She was just seen by Dr. Barth on 06/24/2021. -Plan has been made for solution to this problem. (4) Nausea & vomiting: PLAN: -Resolved. No abdominal pain today. Patient reports has good appetite. -As per hospital medicine service. (5) Declining functional status: PLAN: - discharge planning in progress. ECF at discharge. Discussed with high school social studies teacher
--- NOTE | 2021-07-22 10:42 | CASEMGMT ---
Social Work Note ANAHY received messages from Rafita at [facility] and Jodee at [facility]. Rafita states that [facility] can accept pt and would just need to get the ok from [facility]. Jodee states that both [facility] and [facility] are able to accept pt. Jodee states that it appears pt still smokes so if she wanted to still smoke, then pt would need to go to [facility]. SW in to speak with pt. SW informed pt that [facility], [facility], and [facility] are able to accept pt. SW informed pt that [facility] has the onsite dialysis and if pt wanted to still smoke, pt would need to go to [facility]. Pt states she now prefers on site dialysis and states she really wanted to be close to her sister Erika that is why she wanted to go to the SNF in [place]. ANAHY informed pt that [facility] in [place] is not able to accept her as they do not have transportation available to transport pt to and from dialysis. ANAHY reminded pt that their sister facility, [facility], in [place], [place] does have on site dialysis. Pt states she has been there before and now states [facility] is her preferred provider. SW informed pt that this worker will send referral to [facility] but informed pt that if they can accept then that is the facility pt needs to stay with and pt cannot keep changing her mind. Pt states understanding. ANAHY faxed referral to Lety at [facility] at [phone]. ANAHY placed a call to Rafita at [facility] and Jodee at [facility] and updated them to put pt's referral on hold right now as pt now wants this worker to try a different SNF. Plan: SNF pending acceptance and pre-cert Genna Ellington WHITE LEAD GRINDER, AERIAL LINEMAN
[2021-07-22 11:00] VITALS: BP 141/44; PULSE 77; RESP 18; TEMP 36.7; O2SAT 95
--- NOTE | 2021-07-22 11:12 | CASEMGMT ---
Social Work Note Per labor relations director questions, pt has completed HCPOA and LW, has not provided copy to [facility] and pt unable to bring in copy. Genna Ellington LEAD POURER, MANAGEMENT ASSOCIATE
[2021-07-22] MEDS: Loratadine 10 MG Tablet PO (11:15)
[2021-07-22] MEDS: Carvedilol 6.25 MG Tablet PO ×2 (11:15→20:56)
[2021-07-22] MEDS: Magnesium Chloride 64 MG Delay Rel.Tablet 128 MG PO (11:16)
[2021-07-22] MEDS: Furosemide 80 MG Tablet PO ×2 (11:16→18:18)
[2021-07-22] MEDS: Folic Acid/Vitamin B Comp W-C 1 Capsule 1 CAP PO (11:17)
[2021-07-22 12:31] LABS: Bedside Glucose 110 mg/dL (74-106)
--- NOTE | 2021-07-22 12:56 | CASEMGMT ---
Social Work Note ANAHY placed a call to [facility] and spoke with Lety in admissions. Lety states she never received referral for pt. ANAHY confirmed fax number with Lety. Lety confirms her direct fax number is [phone]. ANAHY refaxed referral to Lety at [facility]. Plan: SNF pending acceptance and pre-cert Genna Ellington STRUCTURAL ENGINEERING PROJECT MANAGER, DIRECTOR DIGITAL SALES
[2021-07-22] MEDS: Albuterol 2.5 MG/3 ML VIAL.NEB. INHALATION (13:52)
[2021-07-22 13:54] VITALS: PULSE 65; RESP 18
[2021-07-22 14:35] VITALS: BP 152/82; PULSE 75; RESP 16; TEMP 36.6; O2SAT 96
[2021-07-22 14:40] LABS: Ferritin 733 ng/mL (8-252); Iron 88 ug/dL (50-170); Iron Binding Capacity,Total 245 ug/dL (250-450); PERCENT IRON SATURATION 35.9 % (15.0-55.0)
--- NOTE | 2021-07-22 15:22 | CASEMGMT ---
Social Work Note SW received call from Lety at [facility] stating they had one question regarding referral. Lety states that one of the nurses noted that pt is in Chemo Precautions. SW in to speak with pt. ANAHY asked pt about Chemo. Pt states she used to receive Chemo, states she doesn't anymore. Pt denied taking oral chemo medications too. ANAHY spoke with [facility] hospitalist. Pt is in Chemo Precautions as pt takes medication Letrozole (Femara). ANAHY placed a call back to Lety and updated her on medication that pt takes. Lety states she will need to review medication and then if able to accept will need to email this worker the documents that she needs to arrange on site dialysis. ANAHY faxed Medication list and information on Letrozole to Lety at [facility]. Plan: [facility] pending acceptance and pre-cert Genna Ellington PACKING AND STAMPING MACHINE OPERATOR, EMR TRAINER
--- NOTE | 2021-07-22 16:01 | PN.HOSP_ITS ---
Subjective Subjective Patient was seen and examined today, she has no complaints of any nausea and vomiting to this examiner today. We are currently awaiting confirmation for placement in a half-way facility for inpatient rehab services. Objective Data Objective Data Vital Signs: Vital Signs Temp Pulse Resp BP Pulse Ox 97.8 F 75 16 152/82 H 96 07/22/21 14:35 07/22/21 14:35 07/22/21 14:35 07/22/21 14:35 07/22/21 14:35 Oxygen Delivery Method Room Air Weight: 121.064 kg Body Mass Index (BMI) 45.8 Intake & Output: Intake and Output for Last 24 Hours 07/20/21 07/21/21 07/22/21 23:59 23:59 23:59 Intake Total 200 / 400 1220 / 1620 640 / 640 Output Total 150 / 275 125 / 125 Balance 200 / 400 1070 / 1345 515 / 515 Lab / Micro Data Result Diagrams: 07/22/21 04:13 07/22/21 04:13 Labs: Laboratory Results - last 24 hr 07/21/21 16:35: POC Glucose 104 07/21/21 21:59: POC Glucose 162 H 07/21/21 23:56: POC Glucose 144 H 07/22/21 04:13: WBC 6.8, RBC 3.04 L, Hgb 9.9 L, Hct 28.5 L, MCV 93.8, MCH 32.6 H , MCHC 34.7, RDW Std Deviation 43.5, RDW Coeff of Angela 12.6, Plt Count 145 L, MPV 9.6, Immature Gran % (Auto) 0.700, Neut % (Auto) 71.5 H, Lymph % (Auto) 10.5 L, Ll[place] % (Auto) 12.0 H, Eos % (Auto) 4.7, Baso % (Auto) 0.6, Absolute Neuts (auto) 4.9, Absolute Lymphs (auto) 0.72 L, Nucleated RBC % 0 07/22/21 04:13: Sodium 124 L, Potassium 4.0, Chloride 92 L, Carbon Dioxide 25.0, Anion Gap 7, BUN 24 H, Creatinine 2.90 H, Estim Creat Clear Calc 18.26, Est GFR (MDRD) Af Amer 21 L, Est GFR (MDRD) Non-Af 18 L, BUN/Creatinine Ratio 8.3 L, Glucose 149 H, Calcium 8.2 L 07/22/21 08:32: POC Glucose 96 07/22/21 12:23: POC Glucose 110 H 07/22/21 14:13: Iron 88, TIBC 245 L, Iron Saturation 35.9, Ferritin 733 H Micro: Microbiology 07/18/21 14:35 Urine, Clean Catch Urine Culture - Final Mixed Gram Positive Organisms Physical Exam Const alert, oriented x3 and no apparent distress Constitutional Narrative: Patient is morbidly obese General Appearance: cooperative, well kempt and well developed Orientation / Consciousness: awake, oriented to person, oriented to place and oriented to time Nutritional Appearance: morbidly obese HEENT normocephalic, head/scalp atraumatic and moist oral mucous membranes Head and Scalp: normocephalic Eyes PERRL, EOMs intact bilaterally and conjunctivae normal Neck nuchal rigidity, supple, no JVD, thyroid normal and no carotid bruits General: trachea midline Resp normal respiratory effort, no retractions, no use of accessory muscles and clear to auscultation bilaterally Auscultation: Negative for rales, rhonchi or wheezes Cardio regular rate, regular rhythm, S1 normal heart sound, S2 normal heart sound, no murmurs, no rub and no gallops GI normal to inspection, nondistended, normoactive bowel sounds, soft to palpation, non-tender and non-distended Extremity no clubbing, cyanosis or edema Skin no rashes or lesions noted General Skin Exam: no breakdown Neuro oriented x3, CN's II-XII intact bilaterally, no focal motor deficits and no sensory deficits noted Sensorium / Orientation: awake and alert Speech: speech normal Psych affect normal Assessment & Plan Assessment/Plan (1) Nausea & vomiting: PLAN: 1. Acute debility-PT and OT will continue to see the patient, she will need temporary placement in half-way facility for inpatient rehab services #2 end-stage renal disease on dialysis-patient will undergo dialysis again tomorrow #3 type 2 diabetes-I have readjusted the patient's insulin due to low blood sugars while she has been in the hospital, continue to monitor blood sugars #4 essential hypertension-continue present medications #5 hypothyroidism-patient is on Synthroid #6 chronic depression-patient is on Zoloft #7 morbid obesity-complicates care and recovery Charges/Coding Visit Charges Inpatient E&M: 73668 Subs Hosp L2
[2021-07-22] MEDS: Insulin Lispro 100 UNIT/ML INSULN.PEN 10 UNIT SC (17:08)
[2021-07-22 17:41] LABS: Bedside Glucose 125 mg/dL (74-106)
[2021-07-22 20:48] VITALS: BP 151/81; PULSE 73; RESP 18; TEMP 36.5; O2SAT 98
[2021-07-22] MEDS: Sertraline 50 MG Tablet 25 MG PO (20:56)
[2021-07-22] MEDS: buPROPion (XL) 300 MG TABLET.XL PO (20:56)
[2021-07-22] MEDS: Senna Tablet 2 TABLET PO (20:57)
[2021-07-22] MEDS: Insulin Glargine-YFGN 100 UNIT/ML Pen 15 UNIT SC (21:02)
[2021-07-22 21:46] LABS: Bedside Glucose 146 mg/dL (74-106)
[2021-07-23] MEDS: proMETHazine 25 MG Tablet PO (00:39)
[2021-07-23] MEDS: traMADol 50 MG Tablet PO ×2 (00:39→16:33)
[2021-07-23] MEDS: Acetaminophen 325 MG Tablet 650 MG PO ×4 (00:40→22:12)
[2021-07-23 00:42] VITALS: BP 126/81; PULSE 70; RESP 18; TEMP 36.8; O2SAT 97
[2021-07-23] MEDS: Levothyroxine 100 MCG Tablet 200 MCG PO (05:02)
[2021-07-23] MEDS: Gabapentin 300 MG Capsule PO ×3 (05:02→22:13)
[2021-07-23 05:05] VITALS: BP 125/57; PULSE 67; RESP 18; TEMP 37.1; O2SAT 98
[2021-07-23 05:46] LABS: Bedside Glucose 77 mg/dL (74-106)
[2021-07-23 07:13] LABS: Anion Gap 7 (5-15); BUN 32 mg/dL (7-18); BUN/Creat Ratio 8.5 RATIO (10-20); Calcium,Total 8.6 mg/dL (8.5-10.1); Chloride 90 mmol/L (98-107); Creatinine, Serum 3.78 mg/dL (0.55-1.02); EST Glomerular Filtration Rate 13 mL/min (>60); Est Glom Filt Rate - Afr Amer 16 mL/min (>60); Estimated Creatinine Clearance 14.01 ml/min; Glucose 88 mg/dL (74-106); Potassium 4.3 mmol/L (3.5-5.1); Sodium Level 122 mmol/L (136-145)
[2021-07-23 08:00] VITALS: BP 150/52; PULSE 63; RESP 16; TEMP 36.4; O2SAT 100
--- NOTE | 2021-07-23 09:52 | PN.RENAL_ITS ---
Subjective Subjective Patient seen on dialysis. Eating breakfast. Denies any complaints. Denies any further nausea. Objective Data Objective Data Vital Signs: Vital Signs Temp Pulse Resp BP Pulse Ox 97.5 F L 63 16 150/52 H 100 07/23/21 08:00 07/23/21 08:00 07/23/21 08:00 07/23/21 08:00 07/23/21 08:00 Oxygen Delivery Method Room Air Weight: 121.064 kg Body Mass Index (BMI) 45.8 Intake & Output: Intake and Output for Last 24 Hours 07/21/21 07/22/21 07/23/21 23:59 23:59 23:59 Intake Total 1220 / 1620 640 / 1000 720 / 720 Output Total 150 / 275 125 / 125 Balance 1070 / 1345 515 / 875 720 / 720 Lab / Micro Data Result Diagrams: 07/22/21 04:13 07/23/21 06:15 Labs: Laboratory Results - last 24 hr 07/22/21 12:23: POC Glucose 110 H 07/22/21 14:13: Iron 88, TIBC 245 L, Iron Saturation 35.9, Ferritin 733 H 07/22/21 17:04: POC Glucose 125 H 07/22/21 21:00: POC Glucose 146 H 07/23/21 05:02: POC Glucose 77 07/23/21 06:15: Sodium 122 L, Potassium 4.3, Chloride 90 L, Carbon Dioxide 25.0, Anion Gap 7, BUN 32 H, Creatinine 3.78 H, Estim Creat Clear Calc 14.01, Est GFR (MDRD) Af Amer 16 L, Est GFR (MDRD) Non-Af 13 L, BUN/Creatinine Ratio 8.5 L, Glucose 88, Calcium 8.6 Micro: Microbiology 07/18/21 14:35 Urine, Clean Catch Urine Culture - Final Mixed Gram Positive Organisms Physical Exam Narrative General: Alert and oriented x3. No apparent distress. HEENT: Normocephalic, atraumatic. Mucous membrane moist. Neck: Supple, no JVD. Heart: Normal S1, S2. No rubs, murmurs or gallops. Lungs: Clear to auscultation anteriorly. Abdomen: Obese, normal bowel sound, soft, nontender Extremity: Trace edema bilateral lower legs. Left arm is swollen and is firm to palpation; positive bruit left AV fistula. tunneled HD catheter accessed for HD, dressing C/D/I Assessment & Plan Assessment/Plan (1) ESRD on hemodialysis: PLAN: -The patient normally dialyzes at [facility] on MWF schedule. EDW had been 111.5kg, but recently unable to get to dry weight due to patient missing HD and shortening treatments. Admission weight ~121kg. -The patient tolerated dialysis 4/4 with around 4 L UF. - HD today over 4hours with ~4L UF as pt/bp tolerates. - KANDI with HD 4/4 -Continue calcium acetate, will monitor phosphorus levels periodically (2) Hypertension: QUALIFIERS: Hypertension type: unspecified Qualified Code(s): I10 - Essential (primary) hypertension PLAN: -Fluid removal with dialysis should help blood pressure control. -Continue current antihypertensives, coreg and lasix (3) Problem with dialysis access: QUALIFIERS: Encounter type: initial encounter Qualified Code(s): T82.898A - Other specified complication of vascular prosthetic devices, implants and grafts, initial encounter PLAN: -The patient has been followed by Dr. Barth for chronic swelling of her left arm. She was just seen by Dr. Barth on 06/24/2021. - patient will need to follow up with vascular once discharged. Family will either need to bring her to see Dr. Barth or due to proximity need to establish with a new vascular team closer to her residence. I discussed this with patient today. -Plan has been made for solution to this problem with Dr. Barth. (4) Nausea & vomiting: PLAN: -Resolved. No abdominal pain today. Patient reports has good appetite. -As per hospital medicine service. (5) Declining functional status: PLAN: - discharge planning in progress. ECF at discharge, possibly ECF in [place] with in-house dialysis. Discussed with professor of social work and discharge team
--- NOTE | 2021-07-23 10:55 | PN.HOSP_ITS ---
Subjective Subjective Patient was seen and examined today, she is undergoing dialysis, she told me that she does not walk very much at home and she does have a wheelchair and walker. Objective Data Objective Data Vital Signs: Vital Signs Temp Pulse Resp BP Pulse Ox 97.5 F L 63 16 150/52 H 100 07/23/21 08:00 07/23/21 08:00 07/23/21 08:00 07/23/21 08:00 07/23/21 08:00 Oxygen Delivery Method Room Air Weight: 121.064 kg Body Mass Index (BMI) 45.8 Intake & Output: Intake and Output for Last 24 Hours 07/21/21 07/22/21 07/23/21 23:59 23:59 23:59 Intake Total 1220 / 1620 640 / 1000 720 / 720 Output Total 150 / 275 125 / 125 Balance 1070 / 1345 515 / 875 720 / 720 Lab / Micro Data Result Diagrams: 07/22/21 04:13 07/23/21 06:15 Labs: Laboratory Results - last 24 hr 07/22/21 12:23: POC Glucose 110 H 07/22/21 14:13: Iron 88, TIBC 245 L, Iron Saturation 35.9, Ferritin 733 H 07/22/21 17:04: POC Glucose 125 H 07/22/21 21:00: POC Glucose 146 H 07/23/21 05:02: POC Glucose 77 07/23/21 06:15: Sodium 122 L, Potassium 4.3, Chloride 90 L, Carbon Dioxide 25.0, Anion Gap 7, BUN 32 H, Creatinine 3.78 H, Estim Creat Clear Calc 14.01, Est GFR (MDRD) Af Amer 16 L, Est GFR (MDRD) Non-Af 13 L, BUN/Creatinine Ratio 8.5 L, Glucose 88, Calcium 8.6 Micro: Microbiology 07/18/21 14:35 Urine, Clean Catch Urine Culture - Final Mixed Gram Positive Organisms Physical Exam Narrative alert, oriented x3 and no apparent distress Constitutional Narrative: Patient is morbidly obese General Appearance: cooperative, well kempt and well developed Orientation / Consciousness: awake, oriented to person, oriented to place and oriented to time Nutritional Appearance: morbidly obese HEENT normocephalic, head/scalp atraumatic and moist oral mucous membranes Head and Scalp: normocephalic Eyes PERRL, EOMs intact bilaterally and conjunctivae normal Neck nuchal rigidity, supple, no JVD, thyroid normal and no carotid bruits General: trachea midline Resp normal respiratory effort, no retractions, no use of accessory muscles and clear to auscultation bilaterally Auscultation: Negative for rales, rhonchi or wheezes Cardio regular rate, regular rhythm, S1 normal heart sound, S2 normal heart sound, no m urmurs, no rub and no gallops GI normal to inspection, nondistended, normoactive bowel sounds, soft to palpation, non-tender and non-distended Extremity no clubbing, cyanosis or edema Skin no rashes General Skin Exam: no breakdown Neuro oriented x3, CN's II-XII intact bilaterally, no focal motor deficits and no sensory deficits noted Sensorium / Orientation: awake and alert Speech: speech normal Psych affect normal Assessment & Plan Assessment/Plan (1) Nausea & vomiting: PLAN: 1. Acute debility-PT and OT will continue to see the patient, she will need temporary placement in half-way facility for inpatient rehab services #2 end-stage renal disease on dialysis-patient is undergoing dialysis today #3 type 2 diabetes-I have readjusted the patient's insulin due to low blood sugars while she has been in the hospital, continue to monitor blood sugars, Blood sugars appear to be adequately controlled at this time #4 essential hypertension-continue present medications #5 hypothyroidism-patient is on Synthroid #6 chronic depression-patient is on Zoloft #7 morbid obesity-complicates care and recovery Charges/Coding Visit Charges Inpatient E&M: 38494 Subs Hosp L2
[2021-07-23 11:20] VITALS: BP 119/52; PULSE 66; RESP 16; TEMP 36.5; O2SAT 88
--- NOTE | 2021-07-23 11:41 | CASEMGMT ---
Addendum entered by Jael Juarez 07/23/21 13:05: Received Hep B surface antigen and Hep B Surface Antibody results, both completed June 27, 2021. Addendum entered by Jael Juarez 07/23/21 12:56: TC to [facility], spoke with Danae. She will fax lab results over. Original Note: TC to [facility] Pos[facility] to make aware pt will be dc'd to [facility] with dialysis on site. Requested to be faxed the following lab results: Hep B Surface Antigen, Hep B Core Antibody,Hep B Surface Antibody. Spoke with Gilberto.
--- NOTE | 2021-07-23 11:42 | CASEMGMT ---
Social Work Note ANAHY received email from Ger at [facility] requesting information needed to have pt switch dialysis to their on site unit and requested updated PT/OT. ANAHY faxed requested documents to Ger at [facility], will send Hep B information once obtained. ANAHY wrote on fax coversheet to let this worker know when pre-cert is obtained. SW in to speak with pt. ANAHY updated pt that [facility] is able to accept pt pending pre-cert. Pt states understanding, agreeable to [facility]. Plan: [facility] pending pre-cert Genna Ellington FLEET SALES MANAGER, PAINT POURER
[2021-07-23] MEDS: Heparin 10,000 UNITS/10 ML Vial 5000 UNITS IV (11:48)
--- NOTE | 2021-07-23 12:10 | DIALYSIS ---
HD x 4hours on 3k bath [id number] vitals stable throughout tx. LIJ cath with good flows and closed with heparin. report to Araceli RUBY post tx
--- NOTE | 2021-07-23 13:00 | CASEMGMT ---
Social Work Note SW received call from pt's Niece Urvashi requesting update on SNF placement. SW informed Urvashi that [facility] in [place] is not able to accept pt due to not being able to arrange transportation for pt to dialysis so they recommended pt going to their sister facility [facility] in [place] that has on site dialysis. Urvashi questioned again why [facility] cannot accept pt and this worker explained again that it is due to pt needing transportation to and from dialysis and [facility] is stating they have no transportation available to do that. ANAHY informed Urvashi that this worker did speak with pt regarding going to SNF in [place] and at one time pt was agreeable and this worker had accepting SNF facilities for pt but then pt decided to go to [facility] in [place] to be closer to her sister. Urvashi states pt will be going so far away from her and she has been the one that has taken care of pt for a while now. ANAHY informed Urvashi that pt is alert and orientated, own person, and able to decide where to go to SNF. Urvashi states well sometimes I don't think she understands things. ANAHY informed Urvashi that pre-cert is pending for [facility], will keep Urvashi updated when pre-cert is obtained. Urvashi states understanding, agreeable to [facility]. ANAHY faxed remaining needed information for dialysis set up to [facility]. Plan: [facility] pending pre-cert Genna Ellington SUPERVISOR INSPECTION ROOM, SCHEDULING MANAGER
[2021-07-23 13:49] VITALS: BP 111/75; PULSE 64; RESP 16; TEMP 36.4; O2SAT 92
[2021-07-23] MEDS: Folic Acid/Vitamin B Comp W-C 1 Capsule 1 CAP PO (13:53)
[2021-07-23] MEDS: Furosemide 80 MG Tablet PO ×2 (13:54→22:13)
[2021-07-23] MEDS: Magnesium Chloride 64 MG Delay Rel.Tablet 128 MG PO (13:54)
[2021-07-23] MEDS: Carvedilol 6.25 MG Tablet PO ×2 (13:54→22:13)
[2021-07-23] MEDS: Aspirin E.C. 81 MG Tablet PO (16:34)
[2021-07-23] MEDS: Insulin Lispro 100 UNIT/ML INSULN.PEN SC ×2 (16:34→22:13)
[2021-07-23] MEDS: Insulin Lispro 100 UNIT/ML INSULN.PEN 10 UNIT SC (16:34)
[2021-07-23] MEDS: Ondansetron ODT 4 MG Tablet PO (16:36)
[2021-07-23] MEDS: Calcium Acetate 667 MG Capsule 1334 MG PO (16:38)
[2021-07-23 16:50] LABS: Bedside Glucose 196 mg/dL (74-106)
[2021-07-23] MEDS: oxyCODONE 5 MG Tablet PO (19:55)
[2021-07-23 19:56] VITALS: BP 157/60; PULSE 76; RESP 18; TEMP 36.6; O2SAT 96
[2021-07-23] MEDS: Sertraline 50 MG Tablet 25 MG PO (22:12)
[2021-07-23] MEDS: Senna Tablet 2 TABLET PO (22:12)
[2021-07-23] MEDS: buPROPion (XL) 300 MG TABLET.XL PO (22:12)
[2021-07-23] MEDS: Insulin Glargine-YFGN 100 UNIT/ML Pen 15 UNIT SC (22:13)
[2021-07-23] MEDS: tiZANidine HCl 2 MG Tablet PO (22:18)
[2021-07-23 22:21] LABS: Bedside Glucose 170 mg/dL (74-106)
[2021-07-23] MEDS: Nystatin Powder 15gm Bottle 1 APPLIC TOPICAL (22:21)
[2021-07-24 00:06] LABS: Bedside Glucose 124 mg/dL (74-106)
[2021-07-24] MEDS: oxyCODONE 5 MG Tablet PO ×4 (03:01→17:35)
[2021-07-24 03:03] VITALS: BP 129/47; PULSE 57; RESP 16; TEMP 36.8; O2SAT 95
[2021-07-24] MEDS: Gabapentin 300 MG Capsule PO ×3 (05:42→20:03)
[2021-07-24] MEDS: traMADol 50 MG Tablet PO ×2 (05:42→20:08)
[2021-07-24] MEDS: Levothyroxine 100 MCG Tablet 200 MCG PO (05:42)
[2021-07-24] MEDS: Acetaminophen 325 MG Tablet 650 MG PO ×3 (05:43→17:35)
[2021-07-24 07:35] LABS: Bedside Glucose 124 mg/dL (74-106)
[2021-07-24 07:44] VITALS: BP 130/65; PULSE 60; RESP 18; TEMP 36.3; O2SAT 93
[2021-07-24] MEDS: Furosemide 80 MG Tablet PO ×2 (07:47→16:59)
[2021-07-24] MEDS: Senna Tablet 2 TABLET PO ×2 (07:47→20:03)
[2021-07-24] MEDS: Calcium Acetate 667 MG Capsule 1334 MG PO ×3 (07:48→16:59)
[2021-07-24] MEDS: Carvedilol 6.25 MG Tablet PO ×2 (07:48→20:03)
[2021-07-24] MEDS: Magnesium Chloride 64 MG Delay Rel.Tablet 128 MG PO (07:48)
[2021-07-24] MEDS: Folic Acid/Vitamin B Comp W-C 1 Capsule 1 CAP PO (07:49)
[2021-07-24] MEDS: Nystatin Powder 15gm Bottle 1 APPLIC TOPICAL ×2 (07:50→21:07)
[2021-07-24] MEDS: Insulin Lispro 100 UNIT/ML INSULN.PEN 10 UNIT SC ×2 (07:53→11:54)
[2021-07-24] MEDS: Aspirin E.C. 81 MG Tablet PO (07:53)
--- NOTE | 2021-07-24 09:21 | PCM.PN.REN ---
Subjective Subjective Following for ESRD Resting quietly. No overnight events. Objective Data Objective Data Vital Signs: Vital Signs Temp Pulse Resp BP Pulse Ox 97.3 F L 60 18 130/65 H 93 07/24/21 07:44 07/24/21 07:44 07/24/21 07:44 07/24/21 07:44 07/24/21 07:44 Oxygen Delivery Method Room Air Weight: 121.064 kg Body Mass Index (BMI) 45.8 Intake & Output: Intake and Output for Last 24 Hours 07/22/21 07/23/21 07/24/21 23:59 23:59 23:59 Intake Total 640 / 1000 1440 / 1440 800 / 800 Output Total 125 / 125 72198 / 67724 Balance 515 / 875 -26548 / -18098 800 / 800 Lab / Micro Data Result Diagrams: 07/22/21 04:13 07/23/21 06:15 Labs: Laboratory Results - last 24 hr 07/23/21 11:44: POC Glucose 124 H 07/23/21 16:32: POC Glucose 196 H 07/23/21 22:10: POC Glucose 170 H 07/24/21 07:26: POC Glucose 124 H Micro: Microbiology 07/18/21 14:35 Urine, Clean Catch Urine Culture - Final Mixed Gram Positive Organisms Physical Exam Narrative General: Alert and oriented x3. No apparent distress. HEENT: Normocephalic, atraumatic. Mucous membrane moist. Neck: Supple, no JVD. Heart: Normal S1, S2. No rubs, murmurs or gallops. Lungs: Clear to auscultation anteriorly. Abdomen: Obese, normal bowel sound, soft, nontender Extremity: Trace edema bilateral lower legs. Left arm is swollen and is firm to palpation; positive bruit left AV fistula. tunneled HD catheter accessed for HD, dressing C/D/I Assessment & Plan Assessment/Plan (1) ESRD on hemodialysis: PLAN: -The patient normally dialyzes at [facility] on MWF schedule. EDW had been 111.5kg, but recently unable to get to dry weight due to patient missing HD and shortening treatments. Admission weight ~121kg. -The patient tolerated dialysis / and 6 with around 4 L UF. - No acute indication for SUPERVISOR SEAMING today, next HD tomorrow - KANDI with HD 07/21 -Continue calcium acetate, will monitor phosphorus levels periodically (2) Hypertension: QUALIFIERS: Hypertension type: unspecified Qualified Code(s): I10 - Essential (primary) hypertension PLAN: -Fluid removal with dialysis should help blood pressure control. -Continue current antihypertensives, coreg and lasix (3) Problem with dialysis access: QUALIFIERS: Encounter type: initial encounter Qualified Code(s): T82.898A - Other specified complication of vascular prosthetic devices, implants and grafts, initial encounter PLAN: -The patient has been followed by Dr. Barth for chronic swelling of her left arm. She was just seen by Dr. Barth on 06/24/2021. - patient will need to follow up with vascular once discharged. Family will either need to bring her to see Dr. Barth or due to proximity need to establish with a new vascular team closer to her residence. I discussed this with patient today. -Plan has been made for solution to this problem with Dr. Barth. (4) Nausea & vomiting: PLAN: -Resolved. No abdominal pain today. Patient reports has good appetite. -As per hospital medicine service. (5) Declining functional status: PLAN: - discharge planning in progress. ECF at discharge, ECF in [place] with in-house dialysis. Discussed with administrator social welfare and discharge team
[2021-07-24 09:25] VITALS: O2SAT 98
--- NOTE | 2021-07-24 10:33 | PN.HOSP_ITS ---
Subjective Subjective Patient was seen and examined today, she is alert and appropriate, she voices no complaints of any shortness of breath, fever, or chills. Objective Data Objective Data Vital Signs: Vital Signs Temp Pulse Resp BP Pulse Ox 97.3 F L 60 18 130/65 H 98 07/24/21 07:44 07/24/21 07:44 07/24/21 07:44 07/24/21 07:44 07/24/21 09:25 Oxygen Delivery Method Room Air Weight: 121.064 kg Body Mass Index (BMI) 45.8 Intake & Output: Intake and Output for Last 24 Hours 07/22/21 07/23/21 07/24/21 23:59 23:59 23:59 Intake Total 640 / 1000 1440 / 1440 800 / 800 Output Total 125 / 125 53753 / 81200 Balance 515 / 875 -91215 / -04233 800 / 800 Lab / Micro Data Result Diagrams: 07/22/21 04:13 07/23/21 06:15 Labs: Laboratory Results - last 24 hr 07/23/21 11:44: POC Glucose 124 H 07/23/21 16:32: POC Glucose 196 H 07/23/21 22:10: POC Glucose 170 H 07/24/21 07:26: POC Glucose 124 H Micro: Microbiology 07/18/21 14:35 Urine, Clean Catch Urine Culture - Final Mixed Gram Positive Organisms Physical Exam Narrative alert, oriented x3 and no apparent distress Constitutional Narrative: Patient is morbidly obese General Appearance: cooperative, well kempt and well developed Orientation / Consciousness: awake, oriented to person, oriented to place and oriented to time Nutritional Appearance: morbidly obese HEENT normocephalic, head/scalp atraumatic and moist oral mucous membranes Head and Scalp: normocephalic Eyes PERRL, EOMs intact bilaterally and conjunctivae normal Neck nuchal rigidity, supple, no JVD, thyroid normal and no carotid bruits General: trachea midline Resp normal respiratory effort, no retractions, no use of accessory muscles and clear to auscultation bilaterally Auscultation: Negative for rales, rhonchi or wheezes Cardio regular rate, regular rhythm, S1 normal heart sound, S2 normal heart sound, no murmurs, no rub and no gallops GI normal to inspection, nondistended, normoactive bowel sounds, soft to palpation, non-tender and non-distended Extremity no clubbing, cyanosis or edema Skin no rashes General Skin Exam: no breakdown Neuro oriented x3, CN's II-XII intact bilaterally, no focal motor deficits and no sensory deficits noted Sensorium / Orientation: awake and alert Speech: speech normal Psych affect normal Assessment & Plan Assessment/Plan (1) Nausea & vomiting: PLAN: 1. Acute debility-PT and OT will continue to see the patient, she will need temporary placement in group home facility for inpatient rehab services, patient remains medically stable at this time #2 end-stage renal disease on dialysis-patient will undergo dialysis tomorrow #3 type 2 diabetes-under adequate control at this time, continue to administer present insulin, fingerstick blood sugars will continue with sliding scale coverage #4 essential hypertension-continue present medications #5 hypothyroidism-patient is on Synthroid #6 chronic depression-patient is on Zoloft #7 morbid obesity-complicates care and recovery Charges/Coding Visit Charges Inpatient E&M: 88175 Subs Hosp L2
--- NOTE | 2021-07-24 10:52 | CM.UR ---
Addendum entered by Genna Ellington 07/24/21 16:00: ANAHY emailed Ger at [facility] requesting update on pre-cert. ANAHY received email from Ger stating pre-cert is still pending, they are anticipating getting pre-cert tomorrow. Plan: [facility] pending pre-cert Original Note: Social Work Note ANAHY faxed updated clinicals to [facility]. ANAHY received email from uriel stating on site dialysis has been approved, just waiting for pre-cert. Plan: [facility] pending pre-cert Genna Ellington SOLDERER ASSEMBLY REPAIR, PERSONAL CARER
[2021-07-24 11:15] LABS: Bedside Glucose 154 mg/dL (74-106)
[2021-07-24] MEDS: Insulin Lispro 100 UNIT/ML INSULN.PEN SC (11:54)
[2021-07-24 14:17] VITALS: BP 132/63; PULSE 73; RESP 18; TEMP 36.7; O2SAT 100
--- NOTE | 2021-07-24 16:01 | CASEMGMT ---
Social Work Note ANAHY received message that pt's niece Urvashi is requesting call back. ANAHY placed a call to Urvashi. Urvashi asked for update on pt moving to SNF. ANAHY informed Urvashi that pre-cert is still pending. ANAHY informed Urvashi that pt will remain at [facility] until pre-cert is obtained. Urvashi states understanding. Plan: [facility] pending pre-cert Genna Ellington DRESS SHOE INSPECTOR, SQUASH CENTRE MANAGER
--- NOTE | 2021-07-24 17:04 | CASEMGMT ---
Social Work Note ANAHY received email from Ger at [facility] stating pre-cert was obtained, pt can discharge tonight to [facility]. ANAHY updated physician. Pt to discharge tonight to SNF. ANAHY placed a call to Ger and updated her that pt will be discharged tonight to [facility]. Ger states understanding. ANAHY completed PAS/RR in [facility] and faxed to [facility]. Original placed on pt's chart. ANAHY placed Green sheet, transport forms, COVID tool, PAS/RR and PAS/RR results on pt's chart. ANAHY updated business initiatives manager and RN that pre-cert has been obtained, pt can discharge to SNF tonight and that pt will need a COVID test. SW in to speak with pt. ANAHY updated pt that pre-cert was obtained and pt [facility]. ANAHY informed pt that this worker will call her niece Urvashi to update and pt states understanding. ANAHY placed a call to pt's niece Urvashi and updated her that pt will discharge to [facility]. Urvashi states understanding. Plan: [facility] skilled under PAS/RR level of care today. Genna Ellington BOOSTER PUMP OILER, FIRE RANGER
[2021-07-24 17:05] LABS: Bedside Glucose 60 mg/dL (74-106)
[2021-07-24 17:21] LABS: Bedside Glucose 63 mg/dL (74-106)
[2021-07-24 17:35] LABS: Bedside Glucose 93 mg/dL (74-106)
--- NOTE | 2021-07-24 17:55 | PCM.TXEXTCAR ---
Diet 07/18/21 17:55 Diet: Consistent Carb - Calorie Controlled Food consistency:: Regular Liquid Consistency:: Regular/Thin Dietary Modifications:: Sodium Restricted Is pt able to select menu?: Yes How many daily calories?: 1800 calorie Routine Orders/Code Status Routine Lab Work: - (Fingerstick blood sugars AC nightly, coverage with Humalog subcu per sliding scale: 200-250: 5 units subcu, 251-300: 8 units subcu, 301-350 12 units) Therapies Weight Bearing: Full weight bearing Physical Therapy: Eval and Treat Occupational Therapy: Eval and Treat Problem/Diagnosis (1) Nausea & vomiting: Status: Acute Comment: resolved (2) ESRD on hemodialysis: Status: Chronic (3) Hypertension: Status: Chronic (4) DM2 (diabetes mellitus, type 2): Status: Chronic (5) Hypothyroidism: Status: Chronic (6) Chronic pain: Status: Chronic Allergies/Procedures Done in Hospital Allergies codeine phosphate [From Tylenol-Codeine #3] Allergy (Verified 07/18/21 12:30) Swelling simvastatin [From Zocor] Allergy (Verified 07/18/21 12:30) Other Procedures: Dialysis Type of Care/Length of Stay Estimated LOS: Convalescent Care Less Than 30 days Type of Care Needed: Skilled Rehab Potential: Good Prognosis: Good Additional Orders/Day of Discharge H&P will serve as current which was dated: 07/18/21 Day of Discharge: 07/24/21 Dietary and Speech Recommendations Dietitian Recommendations/Changes: will continue 1800 calorie, consistent CHO diet w/ sodium restriction d/t ESRD. Discharge Plan Admission Admit Date/Time: 07/18/21 15:55 Primary Reason for Your Visit: Debility, nausea and vomiting Attending Provider: Iban Mariscal Primary Care Provider: Iban Eldridge Consulting Providers: Maicol Domínguez Discharge Orders/Prescriptions Prescriptions: New sennosides [Sherie-nicholas] 8.6 mg Tablet 2 tab PO BID Qty: 0 RF: 0 tramadol 50 mg Tablet 50 mg PO Q6H PRN (Reason: Pain 1-5) Qty: 10 RF: 0 oxycodone 5 mg Tablet 5 mg PO Q4H PRN PRN (Reason: Pain 6-10) 5 Days Qty: 10 RF: 0 nystatin [Nyamyc] 100,000 unit/gram Powder 1 applic topical BID Qty: 0 RF: 0 aspirin 81 mg Tablet,Delayed Release (Dr/Ec) 81 mg PO DAILYCM Qty: 1 RF: 0 Continued promethazine 25 MG tablet 25 mg PO Q8H PRN PRN (Reason: Nausea) RF: 0 carvedilol 6.25 MG tablet 6.25 mg PO BID RF: 0 nitroglycerin 0.4 MG tablet, sublingual 0.4 mg sublingual Q5M PRN (Reason: CHEST PAIN) RF: 0 calcium acetate(phosphat bind) 667 MG capsule 1,334 mg PO TIDCM RF: 0 bupropion HCl 300 MG tablet extended release 24 hr 300 mg PO DAILY RF: 0 gabapentin 300 MG capsule 300 mg PO TID RF: 0 tizanidine 2 MG capsule 2 mg PO TID PRN PRN (Reason: muscle relaxant) RF: 0 magnesium oxide 400 mg (241.3 mg magnesium) tablet 400 mg PO DAILY RF: 0 sertraline 25 mg tablet 25 mg PO QHS RF: 0 Triphrocaps 1 mg capsule 1 cap PO DAILY RF: 0 letrozole 2.5 mg tablet 2.5 mg PO DAILY RF: 0 albuterol sulfate 90 mcg/actuation HFA aerosol inhaler 2 puff INHALATION Q4H PRN (Reason: sob) RF: 0 insulin lispro [Humalog KwikPen Insulin] 100 unit/mL Insulin Pen See Protocol unit subcut ACHS Qty: 0 RF: 0 levothyroxine 200 mcg tablet 200 mcg PO DAILY RF: 0 ondansetron 4 mg tablet,disintegrating 4 mg PO Q8H PRN (Reason: nausea and vomiting) Qty: 10 RF: 0 furosemide 80 mg tablet 80 mg PO BID RF: 0 Changed insulin lispro 100 UNIT/ML insulin pen 10 unit subcut TIDAC Qty: 0 RF: 0 insulin glargine 100 UNITS/ML insulin pen 15 unit subcut BID Qty: 0 RF: 0 Discontinued loratadine 10 mg tablet 10 mg PO DAILY RF: 0 tramadol 50 mg tablet 50 mg PO Q6H PRN (Reason: Pain) RF: 0 oxycodone-acetaminophen [Percocet] 5-325 mg Tablet 1 tab PO Q4H PRN (Reason: Pain) RF: 0 Referrals / Follow Up: Iban Eldridge MD [Primary Care Provider] - Disposition Disposition (needs filled in before D/C Order can be placed[facility]
--- NOTE | 2021-07-24 19:42 | DS.PCM_ITS ---
Providers Date of Admission: 07/18/21 Date of Discharge: 07/24/21 Primary Care Physician: Dr. Iban Eldridge MD Consultations 07/18/21 17:55 Consult: Nephrology Routine Consulting Provider: Maicol Domínguez Reason for Consult: Dialysis EMERGENT Consult: No MD Notified: Yes Date Notified: 07/18/21 Time Notified: 18:34 Method of Notification: Answering Service Reason For Visit: DEBILITY Diagnosis Discharge Diagnosis (1) Nausea & vomiting: Status: Acute Code(s): R11.2 - Nausea with vomiting, unspecified (2) ESRD on hemodialysis: Status: Chronic Code(s): N18.6 - End stage renal disease; Z99.2 - Dependence on renal dialysis (3) Hypertension: Status: Chronic Code(s): I10 - Essential (primary) hypertension Qualifiers: Hypertension type: unspecified Qualified Code(s): I10 - Essential (primary) hypertension (4) DM2 (diabetes mellitus, type 2): Status: Chronic Code(s): E11.9 - Type 2 diabetes mellitus without complications (5) Hypothyroidism: Status: Chronic Code(s): E03.9 - Hypothyroidism, unspecified Qualifiers: Hypothyroidism type: unspecified Qualified Code(s): E03.9 - Hypothyroidism, unspecified (6) Chronic pain: Status: Chronic Code(s): G89.29 - Other chronic pain Plan: 1. Acute debility-secondary to multiple medical problems including end-stage renal disease on dialysis #2 end-stage renal disease requiring dialysis #3 type 2 diabetes #4 essential hypertension #5 hypothyroidism #6 chronic depression #7 morbid obesity #8 coronary artery disease #9 anemia of chronic renal disease #10 hyponatremia #11 chronic pain Medications at Discharge Home Medications promethazine 25 mg PO Q8H PRN PRN 05/14/13 carvedilol 6.25 mg PO BID 08/13/19 bupropion HCl 300 mg PO DAILY 12/21/19 calcium acetate(phosphat bind) 1,334 mg PO TIDCM 12/21/19 nitroglycerin 0.4 mg SUBLINGUAL Q5M PRN 12/21/19 gabapentin 300 mg PO TID 01/19/20 tizanidine 2 mg PO TID PRN PRN 01/19/20 Triphrocaps 1 cap PO DAILY 08/28/20 albuterol sulfate 2 puff INHALATION Q4H PRN 08/28/20 letrozole 2.5 mg PO DAILY 08/28/20 magnesium oxide 400 mg PO DAILY 08/28/20 sertraline 25 mg PO QHS 08/28/20 insulin lispro [Humalog KwikPen Insulin] See Protocol SUBCUT ACHS #0 ml 09/05/20 levothyroxine 200 mcg PO DAILY 11/19/20 ondansetron 4 mg PO Q8H PRN #10 tab 06/16/21 furosemide 80 mg PO BID 07/18/21 aspirin 81 mg PO DAILYCM #1 tab 07/24/21 insulin glargine 15 unit SUBCUT BID #0 ml 07/24/21 insulin lispro 10 unit SUBCUT TIDAC #0 ml 07/24/21 nystatin [Nyamyc] 1 applic TOPICAL BID #0 g 07/24/21 oxycodone 5 mg PO Q4H PRN PRN 5 Days #10 tab 07/24/21 sennosides [Sherie-nicholas] 2 tab PO BID #0 tab 07/24/21 tramadol 50 mg PO Q6H PRN #10 tab 07/24/21 Hospital Course Operations None Procedures Dialysis Summary of Care Provided Minutes Spent on Discharge: 32 Hospital Course: This 60-year-old white female was seen in the emergency room at [facility] with chief complaint of generalized weakness and intermittent nausea and vomiting times several days. Patient is an end-stage renal failure patient that undergoes chronic dialysis. She lives with family members who help take care of her. Work-up in the emergency room included labs which showed a hemoglobin of 10.3, creatinine was 4.31, BUN was 41, sodium was 124, and urinalysis was positive for nitrites but there were 0 RBCs, 0 WBCs, and no bacteria seen. Patient was felt to be too debilitated for discharge home, she was placed in observation status on MedSurg 3 and in in consultation by nephrology, her dialysis was continued while in the hospital, she was seen by PT and OT, approval was obtained for short-term placement in a snf facility in [facility]. On 07/24/2021, patient was seen and examined: alert, oriented x3 and no apparent distress Constitutional Narrative: Patient is morbidly obese General Appearance: cooperative, well kempt and well developed Orientation / Consciousness: awake, oriented to person, oriented to place and oriented to time Nutritional Appearance: morbidly obese HEENT normocephalic, head/scalp atraumatic and moist oral mucous membranes Head and Scalp: normocephalic Eyes PERRL, EOMs intact bilaterally and conjunctivae normal Neck nuchal rigidity, supple, no JVD, thyroid normal and no carotid bruits General: trachea midline Resp normal respiratory effort, no retractions, no use of accessory muscles and clear to auscultation bilaterally Auscultation: Negative for rales, rhonchi or wheezes Cardio regular rate, regular rhythm, S1 normal heart sound, S2 normal heart sound, no murmurs, no rub and no gallops GI normal to inspection, nondistended, normoactive bowel sounds, soft to palpation, non-tender and non-distended Extremity no clubbing, cyanosis or edema Skin no rashes General Skin Exam: no breakdown Neuro oriented x3, CN's II-XII intact bilaterally, no focal motor deficits and no sensory deficits noted Sensorium / Orientation: awake and alert Speech: speech normal Psych affect normal Patient was felt to be stable for transfer to a snf facility for short-term inpatient rehab services on 07/24/2021. Weight / BMI Weight Weight: 121.064 kg Body Mass Index (BMI) 45.8 ABG / Lab / Microbiology Data Result Diagrams: 07/22/21 04:13 07/23/21 06:15 Laboratory: Laboratory Results - last 24 hr 07/23/21 11:44: POC Glucose 124 H 07/23/21 22:10: POC Glucose 170 H 07/24/21 07:26: POC Glucose 124 H 07/24/21 11:08: POC Glucose 154 H 07/24/21 16:55: POC Glucose 60 L 07/24/21 17:14: POC Glucose 63 L 07/24/21 17:32: POC Glucose 93 Microbiology: Microbiology 07/24/21 16:30 Nasal Secretion SARS-CoV-2 Antigen (Rapid) - Final 07/18/21 14:35 Urine, Clean Catch Urine Culture - Final Mixed Gram Positive Organisms Meaningful Use Info Meaningful Use Diagnoses (Choose all that apply): None applicable Discharge Plan Admission Admit Date/Time: 07/18/21 15:55 Primary Reason for Your Visit: Debility, nausea and vomiting Attending Provider: Iban Mairscal Primary Care Provider: Iban Eldridge Consulting Providers: Maicol Domínguez Discharge Orders/Prescriptions Prescriptions: New sennosides [Sherie-nicholas] 8.6 mg Tablet 2 tab PO BID Qty: 0 RF: 0 tramadol 50 mg Tablet 50 mg PO Q6H PRN (Reason: Pain 1-5) Qty: 10 RF: 0 oxycodone 5 mg Tablet 5 mg PO Q4H PRN PRN (Reason: Pain 6-10) 5 Days Qty: 10 RF: 0 nystatin [Nyamyc] 100,000 unit/gram Powder 1 applic topical BID Qty: 0 RF: 0 aspirin 81 mg Tablet,Delayed Release (Dr/Ec) 81 mg PO DAILYCM Qty: 1 RF: 0 Continued promethazine 25 MG tablet 25 mg PO Q8H PRN PRN (Reason: Nausea) RF: 0 carvedilol 6.25 MG tablet 6.25 mg PO BID RF: 0 nitroglycerin 0.4 MG tablet, sublingual 0.4 mg sublingual Q5M PRN (Reason: CHEST PAIN) RF: 0 calcium acetate(phosphat bind) 667 MG capsule 1,334 mg PO TIDCM RF: 0 bupropion HCl 300 MG tablet extended release 24 hr 300 mg PO DAILY RF: 0 gabapentin 300 MG capsule 300 mg PO TID RF: 0 tizanidine 2 MG capsule 2 mg PO TID PRN PRN (Reason: muscle relaxant) RF: 0 magnesium oxide 400 mg (241.3 mg magnesium) tablet 400 mg PO DAILY RF: 0 sertraline 25 mg tablet 25 mg PO QHS RF: 0 Triphrocaps 1 mg capsule 1 cap PO DAILY RF: 0 letrozole 2.5 mg tablet 2.5 mg PO DAILY RF: 0 albuterol sulfate 90 mcg/actuation HFA aerosol inhaler 2 puff INHALATION Q4H PRN (Reason: sob) RF: 0 insulin lispro [Humalog KwikPen Insulin] 100 unit/mL Insulin Pen See Protocol unit subcut ACHS Qty: 0 RF: 0 levothyroxine 200 mcg tablet 200 mcg PO DAILY RF: 0 ondansetron 4 mg tablet,disintegrating 4 mg PO Q8H PRN (Reason: nausea and vomiting) Qty: 10 RF: 0 furosemide 80 mg tablet 80 mg PO BID RF: 0 Changed insulin lispro 100 UNIT/ML insulin pen 10 unit subcut TIDAC Qty: 0 RF: 0 insulin glargine 100 UNITS/ML insulin pen 15 unit subcut BID Qty: 0 RF: 0 Discontinued loratadine 10 mg tablet 10 mg PO DAILY RF: 0 tramadol 50 mg tablet 50 mg PO Q6H PRN (Reason: Pain) RF: 0 oxycodone-acetaminophen [Percocet] 5-325 mg Tablet 1 tab PO Q4H PRN (Reason: Pain) RF: 0 Referrals / Follow Up: Iban Eldridge MD [Primary Care Provider] - Disposition Disposition (needs filled in before D/C Order can be placed): [facility] Facility Charges/Coding Visit Charges Inpatient E&M: 68188 Disch Hosp
[2021-07-24] MEDS: buPROPion (XL) 300 MG TABLET.XL PO (20:03)
[2021-07-24] MEDS: Sertraline 50 MG Tablet 25 MG PO (20:07)
--- NOTE | 2021-07-24 20:52 | NURSING ---
Repost called to FLORI Amor @ [facility].
[2021-07-24] MEDS: Insulin Glargine-YFGN 100 UNIT/ML Pen 15 UNIT SC (21:08)
[2021-07-24 21:20] LABS: Bedside Glucose 118 mg/dL (74-106)
--- NOTE | 2021-07-24 21:23 | NURSING ---
call placed to dr sheikh dt the left arm being hard to touch, she talked to dr ventura and read nephrologies note that stated they are aware of the left arm being swollen and firm. to continue with discharge.
[2021-07-24 21:57] VITALS: BP 134/65; PULSE 72; RESP 18; TEMP 36.9; O2SAT 98
--- NOTE | 2021-07-25 09:53 | CASEMGMT ---
Spoke with Keesha Donald NP who asks for Dr. Blanca Barth's report from 06/24/21 be forwarded to SNF as pt needs intervention. Emailed admissions parts counter salesperson and attached report for notification.
== END 2021-07-24 22:00 | disposition skilled nursing facility (03) ==
LOC: ED 15:58 → MS3 16:09
PROVIDERS: Nurse Practitioner Adult Health; Admitting Provider Family Medicine; Emergency Provider Emergency Medicine; PCP Family Medicine; Visit Provider Internal Medicine
DX: R11.2 Nausea with vomiting, unspecified (principal); I13.2 Hypertensive heart and chronic kidney disease with heart failure and with stage 5 chronic kidney disease, or end stage renal disease; Z99.2 Dependence on renal dialysis; I50.9 Heart failure, unspecified; E11.22 Type 2 diabetes mellitus with diabetic chronic kidney disease; N18.6 End stage renal disease; E66.01 Morbid (severe) obesity due to excess calories; Z68.42 Body mass index [BMI] 45.0-49.9, adult; Z79.4 Long term (current) use of insulin; I25.10 Atherosclerotic heart disease of native coronary artery without angina pectoris; G89.29 Other chronic pain; E03.9 Hypothyroidism, unspecified; Z79.811 Long term (current) use of aromatase inhibitors; F17.200 Nicotine dependence, unspecified, uncomplicated; R53.81 Other malaise; E87.1 Hypo-osmolality and hyponatremia; R41.0 Disorientation, unspecified; Z79.899 Other long term (current) drug therapy; Z79.890 Hormone replacement therapy; F32.A Depression, unspecified; Z86.718 Personal history of other venous thrombosis and embolism; Z79.82 Long term (current) use of aspirin
CPT/HCPCS: 36415; 80048; 81001; 82728; 82962; 83540; 83550; 84484; 85025; 87086; 87088; 87426; 90937; 93005; 94640; 96361; 96374; 96375; 96376; 97110; 97150; 97162; 97166; 97530; 97535; 97802; 97803; 99218; 99284; J7030; J7040; A4216; G0257; G0378; J2405; Q5106

== ENCOUNTER 2021-08-10 20:25 | Inpatient (IN) | payer MEDICARE, MEDICAID, SELFPAY ==
[2021-08-10] VITALS (7 sets, daily range): BP systolic 156–176; BP diastolic 72–80; PULSE 98–106; RESP 16–18; TEMP 36.3–36.8; O2SAT 94–100; BMI 42.9; BMI 48.9
--- NOTE | 2021-08-10 20:39 | EKG12_ITS ---
Test Reason : SOB Blood Pressure : / mmHG Vent. Rate : 105 BPM Atrial Rate : 105 BPM P-R Int : 224 ms QRS Dur : 098 ms QT Int : 328 ms P-R-T Axes : 052 037 260 degrees QTc Int : 433 ms Sinus tachycardia with 1st degree A-V block Low voltage QRS (Limb Leads) Nonspecific ST-Segment Abnormality Confirmed by MARLENI SANTOS, RUSTAM ([id number]), tape editor ALANNA FIELD ([id number]) on 08/12/2021 11:14:05 AM Referred By: Confirmed By:RUSTAM YEPEZ MD
--- NOTE | 2021-08-10 20:40 | ED.VIS.DYS ---
HPI History of Present Illness Chief Complaint: Shortness of Breath Informant: patient and family Onset/Context/Timing Onset: Days (3) Context: gradual and onset Timing: Continuous Quality: Positive for - (Short of breath all the time) Current Severity: Moderate Maximum Severity: Moderate Worsened by: Exertion and Lying flat Relieved by: Nothing Associated Symptoms Negative for cough Chest Pain: Positive for Continuous (Left chest for most of the day today) and Sharp; Negative for Pleuritic Narrative Narrative: Patient presenting with dyspnea that has been worsening over the last 3 days and now chest pain today, worsening swelling in her legs. She ran out of insurance with her half-way stay last week on Wednesday, that was her last dialysis session, and no dialysis was set up for her, nor has she called her nephrology office, and today is Wednesday. She has a history of congestive heart failure as well. [facility] Medical History Back pain Breast cancer CAD (coronary artery disease) Cancer Cardiology follow-up encounter Chronic kidney disease with end stage renal failure on dialysis Chronic pain Congestive heart failure (CHF) Depression Diabetes DM2 (diabetes mellitus, type 2) DVT (deep venous thrombosis) ESRD (end stage renal disease) History of echocardiogram History of pain when walking History of renal dialysis History of renal disease HTN (hypertension) Hypertension Hyponatremia Hypothyroidism Injury of head and neck Insulin dependent diabetes mellitus Kidney disease Problem with dialysis access Shortness of breath on exertion Smoker Thyroid disease Type 2 diabetes mellitus VTE (venous thromboembolism) Wears glasses Home Medications promethazine 25 mg PO Q8H PRN PRN 05/14/13 [History Last Taken Unknown] carvedilol 6.25 mg PO BID 08/13/19 [History Last Taken 07/18/21] bupropion HCl 300 mg PO DAILY 12/21/19 [History Last Taken 07/18/21] calcium acetate(phosphat bind) 1,334 mg PO TIDCM 12/21/19 [History Last Taken 07/18/21] nitroglycerin 0.4 mg SUBLINGUAL Q5M PRN 12/21/19 [History Last Taken Unknown] gabapentin 300 mg PO TID 01/19/20 [History Last Taken 07/18/21] tizanidine 2 mg PO TID PRN PRN 01/19/20 [History Last Taken 07/17/21] albuterol sulfate 2 puff INHALATION Q4H PRN 08/28/20 [History Last Taken 08/27/20] letrozole 2.5 mg PO DAILY 08/28/20 [History Last Taken 07/18/21] magnesium oxide 400 mg PO DAILY 08/28/20 [History Last Taken 07/17/21] sertraline 25 mg PO QHS 08/28/20 [History Last Taken 07/17/21] insulin lispro [Humalog KwikPen Insulin] See Protocol SUBCUT ACHS #0 ml 09/05/20 [Rx Last Taken Unknown] levothyroxine 200 mcg PO DAILY 11/19/20 [History Last Taken 07/18/21] ondansetron 4 mg PO Q8H PRN #10 tab 06/16/21 [Rx Last Taken Unknown] furosemide 80 mg PO BID 07/18/21 [History Last Taken 07/18/21] insulin glargine 27 unit SC BID 08/10/21 [History Last Taken Unknown] nystatin [Nyamyc] 1 applic TOPICAL PRN PRN 08/10/21 [History Last Taken Unknown] sennosides [Sherie-nicholas] 2 tab PO BID PRN PRN 08/10/21 [History Last Taken Unknown] Allergy/AdvReac Type Severity Reaction Status Date / Time codeine phosphate Allergy Swelling Verified 08/10/21 20:27 [From Tylenol-Codeine #3] simvastatin [From Zocor] Allergy Other Verified 08/10/21 20:27 Family History Mother Diabetes Kidney disease CVA (cerebral vascular accident) Father Heart disease Mother Diabetes Surgical History History of cardiac catheterization History of heart artery stent History of right mastectomy S/P dialysis catheter insertion Social History household members: family Smoking Status: Heavy Smoker (>10/day) alcohol intake: never substance use type: does not use ROS ROS ED Constitutional Constitutional ED: Reports malaise; Denies chills or fever(s) Eyes Eyes: Denies change in vision or diplopia ENT ENT ED: Denies rhinorrhea or sore throat Cardiovascular Cardiovascular: Reports chest pain, orthopnea and pedal edema; Denies palpitations Respiratory/Chest Respiratory/Chest: Reports dyspnea and orthopnea; Denies cough Gastrointestinal Gastrointestinal: Denies abdominal pain, diarrhea, nausea or vomiting Genitourinary Genitourinary ED: Denies dysuria or hematuria Musculoskeletal Musculoskeletal: Denies back pain or neck pain Integumentary Denies abscess or rash Neurologic Neurologic: Denies headache(s), paresthesias or weakness Psychiatric Psychiatric: Denies anxiety or suicidal thoughts EXAM Physical Exam Const Vital Signs: 08/10/21 20:25 08/10/21 20:37 08/10/21 20:46 Temperature 97.6 F L Temperature Source Temporal Pulse Rate 101 H 106 H Respiratory Rate 16 17 Respiratory Effort Normal Non-Labored Respiratory Depth Normal Respiratory Pattern Normal Blood Pressure 176/79 H 156/72 H Blood Pressure Mean 111 100 Pulse Ox 94 95 Oxygen Delivery Method Room Air Room Air Room Air Positive well nourished and well developed General Appearance ED: well developed and NAD Nutritional Appearance: morbidly obese HEENT Reports moist mucous membranes normocephalic and atraumatic Eyes PERRL and EOMs intact bilaterally Neck full ROM and supple Chest Wall Chest Narrative: Dialysis catheter left chest wall site benign Resp no retractions and no use of accessory muscles Resp Narrative: Tachypneic without respiratory distress. Wheezes and rhonchi at the bases, otherwise clear. Effort and Inspection: symmetric chest movement Cardio regular rate, regular rhythm, no murmurs and peripheral pulses 2+ throughout Cardio Narrative: Mildly tachycardic GI non-tender and non-distended Auscultation: normoactive bowel sounds Palpation: soft Back/Spine no CVA tenderness General Back: other FROM Extremity normal to inspection and no calf tenderness General Extremety ED: Yes edema; Negative for pulses abnormal or tenderness General Extremity: edema bilateral lower extremity Details: moderate (Bilaterally and symmetric without signs of infection); Negative for pulses abnormal Neuro oriented x3, CN's II-XII intact bilaterally and no sensory deficits noted Sensorium / Orientation: awake and alert Motor Exam: strength 5/5 throughout Skin no rashes or lesions noted and no wounds MDM MDM MDM Narrative Medical decision making narrative: Patient with abnormal troponin, although she has ESRD, she usually has normal troponins. She is having chest discomfort, her EKG shows no sign of acute injury. Her potassium is within normal limits. She does appear to have some mild CHF/pulmonary edema, she is not hypoxic but she is breathing adequately. I think she needs to stay in the hospital and be dialyzed urgently, not emergently. At this time she is mildly tachypneic but in no respiratory distress, does not seem to be requiring BiPAP at this time, but we are giving her aspirin, nitroglycerin. Lab Data Attestation: I reviewed the patient's lab results. Labs: Laboratory Results - last 24 hr 08/10/21 08/10/21 20:50 20:50 WBC 6.4 RBC 3.37 L Hgb 11.0 L Hct 32.9 L MCV 97.6 MCH 32.6 H MCHC 33.4 RDW Std Deviation 51.6 H RDW Coeff of Angela 14.4 Plt Count 180 MPV 9.8 Immature Gran % (Auto) 0.300 Neut % (Auto) 72.5 H Lymph % (Auto) 11.7 L Norman % (Auto) 11.7 H Eos % (Auto) 3.3 Baso % (Auto) 0.5 Absolute Neuts (auto) 4.7 Absolute Lymphs (auto) 0.75 L Nucleated RBC % 0 Sodium 128 L Potassium 4.4 Chloride 97 L Carbon Dioxide 24.0 Anion Gap 7 BUN 42 H Creatinine 5.19 H Estim Creat Clear Calc 10.20 Est GFR (MDRD) Af Amer 11 L Est GFR (MDRD) Non-Af 9 L BUN/Creatinine Ratio 8.1 L Glucose 240 H Calcium 8.5 Troponin I High Sens 155 H* Radiography Chest X-Ray - ED: 1 View, Read by ED Physician and CHF EKG Initial EKG: Attestation: I personally reviewed and interpreted this EKG as follows: Interpretation: No Acute Injury Pattern, Sinus Tachycardia, AV Block (1st deg) and Non-Specific ST Changes Prior EKG tracings: available for review Prior: Unchanged Discharge Plan Dx/Rx/DC Orders Clinical Impression: Acute on chronic diastolic CHF (congestive heart failure), ESRD on hemodialysis, Acute respiratory insufficiency, Chest pain, Elevated troponin Disposition Disposition: [facility]
--- NOTE | 2021-08-10 20:52 | RAD_ITS ---
INDICATION: sob EXAMINATION/TECHNIQUE: X-RAY - XR Chest 1 View COMPARISON: 06/15/2021 and 12/25/2020 chest x-ray FINDINGS: LINES/DEVICES: Left IJ central venous dual-lumen catheter with the tip in the right atrium, 6 cm distal to the cavoatrial junction, unchanged. LUNGS: No appreciable change compared to most recent comparison exams showing chronic asymmetric elevation right hemidiaphragm and prominence with hazy margins of the perihilar interstitial markings suggesting vascular congestion. MEDIASTINUM AND CARDIOVASCULAR STRUCTURES: Normal size and contour of the cardiomediastinal silhouette. BONES AND SOFT TISSUES: Multiple surgical clips right axillary region and right supraclavicular region. RAD/Chest 1 View (Portable) IMPRESSION: 1. No appreciable change compared to 06/15/2021 with chronic asymmetric elevation right hemidiaphragm and evidence of mild pulmonary vascular congestion. 2. Left IJ central venous catheter tip in the right atrium. Electronically Signed: Daniel Bardales DO at 21:59 EDT ,
[2021-08-10 20:57] LABS: Absolute Lymphocyte Count 0.75 X10^3/uL (0.83-4.51); Absolute Neutrophil Count 4.7 X10^3/uL (2.0-7.7); Basophil# 0.03 X10^3/uL; Basophil% 0.5 % (0-1); Eosinophil# 0.21 X10^3/uL; Eosinophils% 3.3 % (0-5); Hematocrit 32.9 % (37-47); Lymphocyte # 0.75 X10^3/ul (0.83-4.51); Lymphocyte % 11.7 % (19-41); Mean Corp Hgb Conc 33.4 g/dL (32-36); Mean Corpuscular Hgb 32.6 pg (27.0-32.0); Mean Corpuscular Volume 97.6 fL (81-99); Mean Platelet Vol. 9.8 fl (6.2-12.0); Monocyte# 0.75 X10^3/uL; Monocyte% 11.7 % (0-10); NRBC Flagged by Analyzer 0 % (0-5); Neutrophil # 4.66 X10^3/uL (2.7-7.7); Neutrophil % 72.5 % (47-70); Platelet Count 180 K/mm3 (150-450); RBC Distribution Width CV 14.4 % (11.6-14.6); RBC Distribution Width SD 51.6 fl (35.1-43.9); Red Blood Count 3.37 M/mm3 (4.2-5.4); White Blood Count 6.4 K/mm3 (4.4-11.0)
[2021-08-10 21:20] LABS: Anion Gap 7 (5-15); BUN 42 mg/dL (7-18); BUN/Creat Ratio 8.1 RATIO (10-20); Calcium,Total 8.5 mg/dL (8.5-10.1); Chloride 97 mmol/L (98-107); Creatinine, Serum 5.19 mg/dL (0.55-1.02); EST Glomerular Filtration Rate 9 mL/min (>60); Est Glom Filt Rate - Afr Amer 11 mL/min (>60); Glucose 240 mg/dL (74-106); Potassium 4.4 mmol/L (3.5-5.1); Sodium Level 128 mmol/L (136-145); Troponin-I HS 155 pg/mL (3.0-54.0)
[2021-08-10] MEDS: Aspirin 81 MG TAB.CHEW 162 MG PO (21:45)
--- NOTE | 2021-08-10 21:45 | NURSING ---
patient c/o chest discomfort 01/26, declining nitroglycerin at this time
--- NOTE | 2021-08-10 21:53 | PCM.HP.STD ---
HPI - General General Date of Admission: 08/10/21 HPI Narrative FÉLIX PARKINSON, is a 60 F who presents for increased dyspnea and swelling in her legs. She states that she was recently at a correction but ran out of insurance money and so her last episode of dialysis was on Wednesday because they kicked her out of the correction. 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 She is also having some vague chest pain and in the ER her was elevated to 155 with a nonischemic EKG. FOR[facility]LY [facility], LATER [facility] Medical History Back pain Breast cancer CAD (coronary artery disease) Cancer Cardiology follow-up encounter Chronic kidney disease with end stage renal failure on dialysis Chronic pain Congestive heart failure (CHF) Depression Diabetes DM2 (diabetes mellitus, type 2) DVT (deep venous thrombosis) ESRD (end stage renal disease) History of echocardiogram History of pain when walking History of renal dialysis History of renal disease HTN (hypertension) Hypertension Hyponatremia Hypothyroidism Injury of head and neck Insulin dependent diabetes mellitus Kidney disease Problem with dialysis access Shortness of breath on exertion Smoker Thyroid disease Type 2 diabetes mellitus VTE (venous thromboembolism) Wears glasses Home Medications promethazine 25 mg PO Q8H PRN PRN 05/14/13 [History Last Taken Unknown] carvedilol 6.25 mg PO BID 08/13/19 [History Last Taken 08/09/21] bupropion HCl 300 mg PO DAILY 12/21/19 [History Last Taken 08/09/21] calcium acetate(phosphat bind) 1,334 mg PO TIDCM 12/21/19 [History Last Taken 08/09/21] nitroglycerin 0.4 mg SUBLINGUAL Q5M PRN 12/21/19 [History Last Taken Unknown] gabapentin 300 mg PO TID 01/19/20 [History Last Taken 08/09/21] tizanidine 2 mg PO TID PRN PRN 01/19/20 [History Last Taken 08/09/21] albuterol sulfate 2 puff INHALATION Q4H PRN 08/28/20 [History Last Taken 08/27/20] letrozole 2.5 mg PO DAILY 08/28/20 [History Last Taken 08/09/21] magnesium oxide 400 mg PO DAILY 08/28/20 [History Last Taken 08/09/21] sertraline 25 mg PO QHS 08/28/20 [History Last Taken 08/09/21] levothyroxine 200 mcg PO DAILY 11/19/20 [History Last Taken 08/09/21] ondansetron 4 mg PO Q8H PRN #10 tab 06/16/21 [Rx Last Taken Unknown] furosemide 80 mg PO BID 07/18/21 [History Last Taken 08/09/21] hydrocodone-acetaminophen 1 tab PO Q6H 08/10/21 [History Last Taken 08/09/21] insulin glargine 27 unit SC BID 08/10/21 [History Last Taken 08/10/21] insulin lispro [Humalog KwikPen Insulin] See Protocol SUBCUT ACHS 08/10/21 [History Last Taken 08/09/21] nystatin [Nyamyc] 1 applic TOPICAL PRN PRN 08/10/21 [History Last Taken 08/09/21] sennosides [Sherie-nicholas] 2 tab PO BID PRN PRN 08/10/21 [History Last Taken Unknown] Allergy/AdvReac Type Severity Reaction Status Date / Time codeine phosphate Allergy Swelling Verified 08/10/21 20:27 [From Tylenol-Codeine #3] simvastatin [From Zocor] Allergy Other Verified 08/10/21 20:27 Family History Mother Diabetes Kidney disease CVA (cerebral vascular accident) Father Heart disease Mother Diabetes Surgical History History of cardiac catheterization History of heart artery stent History of right mastectomy S/P dialysis catheter insertion Social History household members: family Smoking Status: Heavy Smoker (>10/day) alcohol intake: never substance use type: does not use ROS Constitutional Constitutional: Denies chills, fatigue, fever(s) or malaise Eyes Eyes: Denies blurry vision ENT HEENT: Denies headache(s) or nasal discharge Cardiovascular Cardiovascular: Reports chest pain; Denies dyspnea on exertion or syncope Respiratory/Chest Respiratory/Chest: Reports shortness of breath at rest; Denies cough or shortness of breath with exertion Gastrointestinal Gastrointestinal: Denies constipation, diarrhea, nausea or vomiting Genitourinary Genitourinary: Denies dysuria Neurologic Neurologic: Denies focal weakness, numbness or tremor(s) Psychiatric Psychiatric: Denies anxiety or depression Vital Signs Vital Signs Vital Signs: 08/10/21 20:25 08/10/21 20:37 08/10/21 20:46 Temperature 97.6 F L Temperature Source Temporal Pulse Rate 101 H 106 H Respiratory Rate 16 17 Respiratory Effort Normal Non-Labored Respiratory Depth Normal Respiratory Pattern Normal Blood Pressure 176/79 H 156/72 H Blood Pressure Mean 111 100 Pulse Ox 94 95 Oxygen Delivery Method Room Air Room Air Room Air 08/10/21 21:35 Temperature 97.4 F L Temperature Source Temporal Pulse Rate 104 H Respiratory Rate 16 Respiratory Effort Respiratory Depth Respiratory Pattern Blood Pressure 168/80 H Blood Pressure Mean 109 Pulse Ox 100 Oxygen Delivery Method Room Air Weight Weight: 250 lb Body Mass Index (BMI) 42.9 Physical Exam Const alert and oriented x3 General Appearance: cooperative HEENT normocephalic Mouth: dry mucous membranes Eyes PERRL, EOMs intact bilaterally and conjunctivae normal Neck supple and no JVD Resp normal respiratory effort, no retractions and no use of accessory muscles Auscultation: rhonchi; Negative for crackles, rales or wheezes Cardio regular rate, regular rhythm, S1 normal heart sound, S2 normal heart sound and no murmurs GI soft to palpation, non-tender and non-distended; Negative for hepatosplenomegaly Extremity General Extremity: edema; Negative for clubbing or cyanosis Skin no rashes or lesions noted Neuro no focal motor deficits and no sensory deficits noted Psych affect normal Appearance: appropriate Results Lab / Micro Data Result Diagrams: 08/10/21 20:50 08/10/21 20:50 Labs: Laboratory Results - last 24 hr 08/10/21 20:50: WBC 6.4, RBC 3.37 L, Hgb 11.0 L, Hct 32.9 L, MCV 97.6, MCH 32.6 H, MCHC 33.4, RDW Std Deviation 51.6 H, RDW Coeff of Angela 14.4, Plt Count 180, MPV 9.8, Immature Gran % (Auto) 0.300, Neut % (Auto) 72.5 H, Lymph % (Auto) 11.7 L, [place] % (Auto) 11.7 H, Eos % (Auto) 3.3, Baso % (Auto) 0.5, Absolute Neuts (auto) 4.7, Absolute Lymphs (auto) 0.75 L, Nucleated RBC % 0 08/10/21 20:50: Sodium 128 L, Potassium 4.4, Chloride 97 L, Carbon Dioxide 24.0, Anion Gap 7, BUN 42 H, Creatinine 5.19 H, Estim Creat Clear Calc 10.20, Est GFR (MDRD) Af Amer 11 L, Est GFR (MDRD) Non-Af 9 L, BUN/Creatinine Ratio 8.1 L, Glucose 240 H, Calcium 8.5, Troponin I High Sens 155 H* Assessment & Plan Assessment/Plan (1) Chest pain: (2) Elevated troponin: PLAN: 1. HTN/HLD/Possible CHF exacerbation with chest pain -Blood pressures are stable, will continue with Lasix -Continue with Coreg -Sodium is stable at 128, which is around her baseline ?Troponin is elevated to 155, will obtain serial troponins as well as an echo, her last echo was in 2019 with an EF of 60% and indeterminate diastolic function. If troponin continues to rise or she has worsening chest pain 2. ESRD on dialysis/DM 2 -Will need to consult nephrology for dialysis since she skipped her last dialysis -We will continue with her home Lasix, no IV fluids -continue with her home insulin, will monitor Accu-Cheks AC at bedtime 3. Hypothyroidism -Stable -Continue with Synthroid 4. Anxiety/depression -Stable -Continue with Zoloft and Wellbutrin DVT: Heparin Charges/Coding Visit Charges Inpatient E&M: 11874 Init Hosp L2
--- NOTE | 2021-08-10 22:53 | EKG12_ITS ---
Test Reason : AM EKG Blood Pressure : / mmHG Vent. Rate : 067 BPM Atrial Rate : 067 BPM P-R Int : 190 ms QRS Dur : 094 ms QT Int : 400 ms P-R-T Axes : 070 028 -81 degrees QTc Int : 422 ms Normal sinus rhythm Low voltage QRS Nonspecific T wave abnormality Abnormal ECG Confirmed by MARLENI SANTOS, RUSTAM ([id number]), greeting card editor ALANNA FIELD ([id number]) on 08/13/2021 10:02:26 AM Referred By: Confirmed By:RUSTAM YEPEZ MD
[2021-08-10 23:42] LABS: Troponin-I HS 142 pg/mL (3.0-54.0)
[2021-08-11] VITALS (9 sets, daily range): BP systolic 109–152; BP diastolic 48–67; PULSE 66–87; RESP 17–18; TEMP 36.4–36.7; O2SAT 94–97
[2021-08-11] MEDS: Heparin Injection (Vial) 5,000 UNIT/ML VIAL 5000 UNIT SC ×4 (00:34→22:10)
[2021-08-11] MEDS: Furosemide 80 MG Tablet PO ×3 (00:36→22:06)
[2021-08-11] MEDS: Carvedilol 6.25 MG Tablet PO ×3 (00:36→22:07)
[2021-08-11] MEDS: Gabapentin 300 MG Capsule PO ×4 (00:36→22:07)
[2021-08-11] MEDS: Insulin Lispro 100 UNIT/ML INSULN.PEN SC ×3 (00:37→22:03)
[2021-08-11] MEDS: Insulin Glargine-YFGN 100 UNIT/ML Pen 27 UNIT SC ×2 (00:39→22:05)
[2021-08-11 01:06] LABS: Bedside Glucose 233 mg/dL (74-106)
[2021-08-11] MEDS: HYDROcodone Bitartrate/Apap 5/325 Tablet PO ×3 (01:57→12:15)
[2021-08-11 05:14] LABS: Absolute Lymphocyte Count 0.77 X10^3/uL (0.83-4.51); Absolute Neutrophil Count 3.8 X10^3/uL (2.0-7.7); Basophil# 0.03 X10^3/uL; Basophil% 0.5 % (0-1); Eosinophil# 0.23 X10^3/uL; Eosinophils% 4.1 % (0-5); Hematocrit 32.6 % (37-47); Hemoglobin 10.4 g/dL (12.0-15.0); Lymphocyte # 0.77 X10^3/ul (0.83-4.51); Lymphocyte % 13.8 % (19-41); Mean Corp Hgb Conc 31.9 g/dL (32-36); Mean Corpuscular Hgb 32.3 pg (27.0-32.0); Mean Corpuscular Volume 101.2 fL (81-99); Monocyte# 0.71 X10^3/uL; Monocyte% 12.8 % (0-10); NRBC Flagged by Analyzer 0 % (0-5); Neutrophil % 68.4 % (47-70); Platelet Count 157 K/mm3 (150-450); RBC Distribution Width CV 14.3 % (11.6-14.6); RBC Distribution Width SD 53.6 fl (35.1-43.9); Red Blood Count 3.22 M/mm3 (4.2-5.4); White Blood Count 5.6 K/mm3 (4.4-11.0)
[2021-08-11 05:36] LABS: Anion Gap 8 (5-15); BUN 43 mg/dL (7-18); BUN/Creat Ratio 8.2 RATIO (10-20); Calcium,Total 8.1 mg/dL (8.5-10.1); Chloride 97 mmol/L (98-107); Creatinine, Serum 5.24 mg/dL (0.55-1.02); EST Glomerular Filtration Rate 9 mL/min (>60); Est Glom Filt Rate - Afr Amer 11 mL/min (>60); Estimated Creatinine Clearance 10.11 ml/min; Glucose 236 mg/dL (74-106); Potassium 3.9 mmol/L (3.5-5.1); Sodium Level 131 mmol/L (136-145)
[2021-08-11 05:48] LABS: Troponin-I HS 642 pg/mL (3.0-54.0)
[2021-08-11] MEDS: Levothyroxine 100 MCG Tablet 200 MCG PO (06:41)
[2021-08-11 07:06] LABS: Bedside Glucose 225 mg/dL (74-106)
[2021-08-11 08:31] LABS: Troponin-I HS 1068 pg/mL (3.0-54.0)
[2021-08-11 08:43] LABS: Hepatitis B Surface Antigen Non-Reactive (Nonreactive)
--- NOTE | 2021-08-11 09:00 | CASEMGMT ---
FLORI YU assessment: Face to Face with patient for initial transition planning/care coordination assessment. FLORI YU introduced self and role at [facility], pt voices understanding and consents to assessment. Pt is lying in bed in no distress on room air. Pt is A/O x4 and answers all questions appropriately. Care providers, pharmacy, and demographics verified. Presentation: Pt c/o dyspnea for past several hours, denies all other sx's-has missed dialysis this past week Admitting dx: CHF exac PCP: [facility] Specialists: Winter, nephro; Tab, surgeon; [facility] cardio Preferred Pharm[facility]: [facility] Prescription Benefit: Yes Living Will/HPOA: Pt has LW/HPOA and is aware that they are on file at [facility]. Pt's niece, Urvashi Benton, is HPOA. LNOK: Urvashi Benton, niece Living Arrangements: Pt lives with niece and niece's in 1 story home with no steps in and states no concerns at home. Pt's niece assists with ADL's. Transportation: Pt's nephew drives or uses [employer] transportation and states no transportation concerns. DME/HHC: Pt has the following DME: w/c, glucometer, walker, shower chair, and lift chair. Pt states no need for any further DME. Pt states has had HHC in the past and has been to the following SNF's: [facility], [facility], [facility], and [facility]. Pt states was released from [facility] last week and they did not set her up with OP HD. Pt was going to [facility] prior to SNF placement. Pt would like referral faxed to [facility] again at this time. Pt states no concerns with going home at time of discharge but is interested in HHC. Pt to be provided with list of in-network HHC companies. Pt is on disability. Pt states smokes about 5 cigarettes daily and does not drink ETOH. Pt voices no further concerns/needs. CM to follow for HHC, HD set up, and any further discharge planning/needs. Advised pt to ask for CM if any further questions/concerns/needs arise, voices understanding. Pt Goal: Home Plan: Home w HHC and HD set [place] [facility]
--- NOTE | 2021-08-11 09:13 | ECHOCS_ITS ---
Reason For Study: CHF Procedure This was a 2D Doppler, Color Flow transthoracic echocardiogram. The study was technically difficult. The study was technically limited. Exam performed portable in patient room. Left Ventricle Normal left ventricle. The estimated ejection fraction is 55-60 %. Right Ventricle Normal right ventricle. Normal systolic function. Atria Normal left atrium. Normal right atrium. Mitral Valve There is mild mitral annular calcification. Trivial mitral valve insufficiency. Tricuspid Valve Normal tricuspid valve. No tricuspid valve insufficiency. Aortic Valve Moderate diffuse aortic valve calcification. Mild aortic stenosis. Pulmonic Valve The pulmonic valve is not well visualized. Great Vessels Normal aortic root. Pericardium/Pleural No pericardial effusion. Medication Diluted definity 2.5ml given slow IV push to enhance endocardial definition. MMode/2D Measurements & Calculations LVIDd: 4.4 cm IVSd: 1.0 cm LVOT diam: 2.1 cm LVIDs: 3.7 cm LVPWd: 1.1 cm FS: 16.9 % LVOT area: 3.4 cm2 Ao root diam: 2.4 cm LVAd ap4: 31.9 cm2 LVAd ap2: 22.9 cm2 LVLd ap4: 7.4 cm LVLd ap2: 6.6 cm EDV(MOD-sp4): 113.4 ml EDV(MOD-sp2): 64.7 ml EDV(sp4-el): 116.4 ml EDV(sp2-el): 67.4 ml LVAs ap4: 19.3 cm2 LVAs ap2: 16.6 cm2 LVLs ap4: 6.3 cm LVLs ap2: 6.3 cm ESV(MOD-sp4): 49.9 ml ESV(MOD-sp2): 36.5 ml ESV(sp4-el): 50.1 ml ESV(sp2-el): 36.6 ml EF(MOD-sp4): 56.0 % EF(MOD-sp2): 43.6 % EF(sp4-el): 56.9 % SV(MOD-sp4): 63.6 ml SV(MOD-sp2): 28.2 ml SV(sp4-el): 66.3 ml LA dimension(2D): 3.8 cm Doppler Measurements & Calculations MV E max kings: 115.6 cm/sec Lat Peak E' Kings: 7.9 cm/sec Med Peak E' Kings: 3.6 cm/sec MV A max kings: 61.9 cm/sec E/E' lat: 14.7 E/E' med: 31.9 MV E/A: 1.9 Ao V2 max: 186.4 cm/sec LV V1 max: 95.3 cm/sec SV(LVOT): 65.5 ml Ao max P.9 mmHg LV V1 max P.6 mmHg Ao V2 mean: 138.7 cm/sec LV V1 mean P.0 mmHg Ao mean P.4 mmHg LV V1 mean: 68.1 cm/sec Ao V2 VTI: 41.9 cm LV V1 VTI: 19.5 cm JENNIFER(I,D): 1.6 cm2 JENNIFER(V,D): 1.7 cm2 PA V2 max: 78.5 cm/sec ECHO/Echo Complete W/ Contrast Interpretation Summary The estimated ejection fraction is 55-60 %. Mild No significant changes from previous echo on 01/20/2020 Ordering Physician: Braulio Corbin Referring Physician: MD Chente Iban Performed By: Barbara Lin RDCS
--- NOTE | 2021-08-11 10:38 | CON.PCM.CA_ITS ---
Assessment & Plan Assessment/Plan (1) S/P right coronary artery (RCA) stent placement: (2) DM2 (diabetes mellitus, type 2): (3) Tobacco abuse: (4) ESRD on hemodialysis: (5) Hypertension: QUALIFIERS: Hypertension type: unspecified Qualified Code(s): I10 - Essential (primary) hypertension (6) Hypothyroidism: QUALIFIERS: Hypothyroidism type: unspecified Qualified Code(s): E03.9 - Hypothyroidism, unspecified (7) Non-compliance with renal dialysis: (8) Acute on chronic diastolic CHF (congestive heart failure): (9) Elevated troponin: PLAN: Cardiac auscultation requested to evaluate this patient who presented with the missing her dialysis as she was in a care home And patient also complained of symptoms of chest pain and she was evaluated by high sensitive troponin which is elevated Her symptoms of chest pain resolved Noted patient currently was not in any aspirin she is noncompliant. Review of the record she had a PCI and stent of the RCA in 2002 using drug- eluting stent Cypher Subsequently in 2005 she underwent cardiac catheterization here at [facility] by Dr. Benny Wilson which Revealed normal LV systolic function with ejection fraction of 60% had nonobstructive left main ostial [place] percent as well as LAD had 20 to 30% mid stenosis and the circumflex had 20 to 30% RCA in-stent restenosis of 40-50 in the midportion of the stent Cardiac care plan recommendation; 1. I reviewed the current medication will continue current treatment including aspirin and heparin 2. Echocardiogram to reevaluate LV function 3. Based on her clinical history and current presentation we will plan for cardiac catheterization which can be set up tomorrow from the right radial approach. HPI Consult Data Date of Consult: 08/11/21 HPI Narrative Reason for Consultation: Elevated high sensitive troponin HPI Narrative: FÉLIX PARKINSON, is a 60 F who presents [facility] Medical History Back pain Breast cancer CAD (coronary artery disease) Cancer Cardiology follow-up encounter Chronic kidney disease with end stage renal failure on dialysis Chronic pain Congestive heart failure (CHF) Depression Diabetes DM2 (diabetes mellitus, type 2) DVT (deep venous thrombosis) ESRD (end stage renal disease) History of echocardiogram History of pain when walking History of renal dialysis History of renal disease HTN (hypertension) Hypertension Hyponatremia Hypothyroidism Injury of head and neck Insulin dependent diabetes mellitus Kidney disease Problem with dialysis access Shortness of breath on exertion Smoker Thyroid disease Type 2 diabetes mellitus VTE (venous thromboembolism) Wears glasses Home Medications promethazine 25 mg PO Q8H PRN PRN 05/14/13 [History Last Taken Unknown] carvedilol 6.25 mg PO BID 08/13/19 [History Last Taken 08/09/21] bupropion HCl 300 mg PO DAILY 12/21/19 [History Last Taken 08/09/21] calcium acetate(phosphat bind) 1,334 mg PO TIDCM 12/21/19 [History Last Taken 08/09/21] nitroglycerin 0.4 mg SUBLINGUAL Q5M PRN 12/21/19 [History Last Taken Unknown] gabapentin 300 mg PO TID 01/19/20 [History Last Taken 08/09/21] tizanidine 2 mg PO TID PRN PRN 01/19/20 [History Last Taken 08/09/21] albuterol sulfate 2 puff INHALATION Q4H PRN 08/28/20 [History Last Taken 08/27/20] letrozole 2.5 mg PO DAILY 08/28/20 [History Last Taken 08/09/21] magnesium oxide 400 mg PO DAILY 08/28/20 [History Last Taken 08/09/21] sertraline 25 mg PO QHS 08/28/20 [History Last Taken 08/09/21] levothyroxine 200 mcg PO DAILY 11/19/20 [History Last Taken 08/09/21] ondansetron 4 mg PO Q8H PRN #10 tab 06/16/21 [Rx Last Taken Unknown] furosemide 80 mg PO BID 07/18/21 [History Last Taken 08/09/21] hydrocodone-acetaminophen 1 tab PO Q6H 08/10/21 [History Last Taken 08/09/21] insulin glargine 27 unit SC BID 08/10/21 [History Last Taken 08/10/21] insulin lispro [Humalog KwikPen Insulin] See Protocol SUBCUT ACHS 08/10/21 [History Last Taken 08/09/21] nystatin [Nyamyc] 1 applic TOPICAL PRN PRN 08/10/21 [History Last Taken 08/09/21] sennosides [Sherie-nicholas] 2 tab PO BID PRN PRN 08/10/21 [History Last Taken Unknown] Allergy/AdvReac Type Severity Reaction Status Date / Time codeine phosphate Allergy Swelling Verified 08/10/21 20:27 [From Tylenol-Codeine #3] simvastatin [From Zocor] Allergy Other Verified 08/10/21 20:27 Family History Mother Diabetes Kidney disease CVA (cerebral vascular accident) Father Heart disease Mother Diabetes Surgical History (Updated 08/11/21 @ 10:[address] Braulio Corbin MD) History of cardiac catheterization History of heart artery stent History of right mastectomy S/P dialysis catheter insertion S/P right coronary artery (RCA) stent placement Social History household members: family Smoking Status: Heavy Smoker (>10/day) alcohol intake: never substance use type: does not use Physical Exam Narrative Patient seen in PCU along with the nursing staff She was on dialysis at bedside Alert orientated Her symptoms of chest pain resolved. quality assurance monitor final showed normal sinus Cardiovascular exam S1-S2 regular No murmur Chest exam clear to auscultation bilateral Patient morbidly obese Risk Stratification Risk Stratification Applicable: Yes Age >/= 65: No >/= 3 CAD Risk Factors (HTN, HLD, DM, family hx of CAD, or current smoker): No Aspirin Use in the Past 7 Days: No Severe Angina (>/= episodes in 24 hours): No EKG ST Changes >/= 0.5mm: No Positive Cardiac Marker: Yes NARDA Risk Stratification Score: 1 NARDA % Risk: 5% Risk Objective Data Vital Signs: Vital Signs Temp Pulse Resp BP Pulse Ox 97.5 F L 69 18 109/52 L 97 08/11/21 06:25 08/11/21 07:00 08/11/21 06:25 08/11/21 06:25 08/11/21 06:25 Oxygen Delivery Method Room Air Weight: 287 lb 0.67 oz Body Mass Index (BMI) 48.9 Intake & Output: Intake and Output for Last 24 Hours 08/09/21 08/10/21 08/11/21 23:59 23:59 23:59 Intake Total 280 / 280 Balance 280 / 280 Lab / Micro Data Result Diagrams: 08/11/21 04:34 08/11/21 04:34 Labs: Laboratory Results - last 24 hr 08/10/21 20:50: WBC 6.4, RBC 3.37 L, Hgb 11.0 L, Hct 32.9 L, MCV 97.6, MCH 32.6 H, MCHC 33.4, RDW Std Deviation 51.6 H, RDW Coeff of Angela 14.4, Plt Count 180, MPV 9.8, Immature Gran % (Auto) 0.300, Neut % (Auto) 72.5 H, Lymph % (Auto) 11.7 L, [place] % (Auto) 11.7 H, Eos % (Auto) 3.3, Baso % (Auto) 0.5, Absolute Neuts (auto) 4.7, Absolute Lymphs (auto) 0.75 L, Nucleated RBC % 0 08/10/21 20:50: Sodium 128 L, Potassium 4.4, Chloride 97 L, Carbon Dioxide 24.0, Anion Gap 7, BUN 42 H, Creatinine 5.19 H, Estim Creat Clear Calc 10.20, Est GFR (MDRD) Af Amer 11 L, Est GFR (MDRD) Non-Af 9 L, BUN/Creatinine Ratio 8.1 L, Glucose 240 H, Calcium 8.5, Troponin I High Sens 155 H* 08/10/21 23:02: Troponin I High Sens 142 H* 08/11/21 00:23: POC Glucose 233 H 08/11/21 04:34: WBC 5.6, RBC 3.22 L, Hgb 10.4 L, Hct 32.6 L, MCV 101.2 H, MCH 32.3 H, MCHC 31.9 L, RDW Std Deviation 53.6 H, RDW Coeff of Angela 14.3, Plt Count 157, MPV 10.0, Immature Gran % (Auto) 0.400, Neut % (Auto) 68.4, Lymph % (Auto) 13.8 L, [place] % (Auto) 12.8 H, Eos % (Auto) 4.1, Baso % (Auto) 0.5, Absolute Neuts (auto) 3.8, Absolute Lymphs (auto) 0.77 L, Nucleated RBC % 0 08/11/21 04:34: Sodium 131 L, Potassium 3.9, Chloride 97 L, Carbon Dioxide 26.0, Anion Gap 8, BUN 43 H, Creatinine 5.24 H, Estim Creat Clear Calc 10.11, Est GFR (MDRD) Af Amer 11 L, Est GFR (MDRD) Non-Af 9 L, BUN/Creatinine Ratio 8.2 L, Glucose 236 H, Calcium 8.1 L 08/11/21 04:34: Troponin I High Sens 642 H* 08/11/21 06:33: POC Glucose 225 H 08/11/21 07:51: Troponin I High Sens 1068 H* 08/11/21 07:51: Hep Bs Antigen Non-Reactive Cardiology Labs/Tests 08/10/21 20:50: WBC 6.4, RBC 3.37 L, Hgb 11.0 L, Hct 32.9 L, MCV 97.6, MCH 32.6 H, MCHC 33.4, Plt Count 180, MPV 9.8, Immature Gran % (Auto) 0.300, Neut % (Auto) 72.5 H, Lymph % (Auto) 11.7 L, [place] % (Auto) 11.7 H, Eos % (Auto) 3.3, Baso % (Auto) 0.5, Absolute Neuts (auto) 4.7, Nucleated RBC % 0 08/10/21 20:50: Sodium 128 L, Potassium 4.4, Chloride 97 L, Carbon Dioxide 24.0, Anion Gap 7, BUN 42 H, Creatinine 5.19 H, Est GFR (MDRD) Af Amer 11 L, Est GFR (MDRD) Non-Af 9 L, BUN/Creatinine Ratio 8.1 L, Glucose 240 H, Calcium 8.5 08/11/21 04:34: WBC 5.6, RBC 3.22 L, Hgb 10.4 L, Hct 32.6 L, MCV 101.2 H, MCH 32.3 H, MCHC 31.9 L, Plt Count 157, MPV 10.0, Immature Gran % (Auto) 0.400, Neut % (Auto) 68.4, Lymph % (Auto) 13.8 L, [place] % (Auto) 12.8 H, Eos % (Auto) 4.1, Baso % (Auto) 0.5, Absolute Neuts (auto) 3.8, Nucleated RBC % 0 08/11/21 04:34: Sodium 131 L, Potassium 3.9, Chloride 97 L, Carbon Dioxide 26.0, Anion Gap 8, BUN 43 H, Creatinine 5.24 H, Est GFR (MDRD) Af Amer 11 L, Est GFR (MDRD) Non-Af 9 L, BUN/Creatinine Ratio 8.2 L, Glucose 236 H, Calcium 8.1 L Rhythm: EKG: ECHO: Stress Test: Cardiac Cath: PCI: CT Surgery: Holter monitor: EPS: PPM: CXR: Chest CT Scan: Radiography Diagnostic Testing: Radiology Impression Chest X-Ray 08/10/21 20:52 IMPRESSION: 1. No appreciable change compared to 06/15/2021 with chronic asymmetric elevation right hemidiaphragm and evidence of mild pulmonary vascular congestion. 2. Left IJ central venous catheter tip in the right atrium. Electronically Signed: Daniel Bardales DO at 21:59 EDT ,
--- NOTE | 2021-08-11 10:50 | PCM.PN.CARD ---
Objective Data Vital Signs: Vital Signs Temp Pulse Resp BP Pulse Ox 97.5 F L 69 18 109/52 L 97 08/11/21 06:25 08/11/21 07:00 08/11/21 06:25 08/11/21 06:25 08/11/21 06:25 Oxygen Delivery Method Room Air Weight: 287 lb 0.67 oz Body Mass Index (BMI) 48.9 Intake & Output: Intake and Output for Last 24 Hours 08/09/21 08/10/21 08/11/21 23:59 23:59 23:59 Intake Total 280 / 280 Balance 280 / 280 Lab / Micro Data Result Diagrams: 08/11/21 04:34 08/11/21 04:34 Labs: Laboratory Results - last 24 hr 08/10/21 20:50: WBC 6.4, RBC 3.37 L, Hgb 11.0 L, Hct 32.9 L, MCV 97.6, MCH 32.6 H, MCHC 33.4, RDW Std Deviation 51.6 H, RDW Coeff of Angela 14.4, Plt Count 180, MPV 9.8, Immature Gran % (Auto) 0.300, Neut % (Auto) 72.5 H, Lymph % (Auto) 11.7 L, Edwards % (Auto) 11.7 H, Eos % (Auto) 3.3, Baso % (Auto) 0.5, Absolute Neuts (auto) 4.7, Absolute Lymphs (auto) 0.75 L, Nucleated RBC % 0 08/10/21 20:50: Sodium 128 L, Potassium 4.4, Chloride 97 L, Carbon Dioxide 24.0, Anion Gap 7, BUN 42 H, Creatinine 5.19 H, Estim Creat Clear Calc 10.20, Est GFR (MDRD) Af Amer 11 L, Est GFR (MDRD) Non-Af 9 L, BUN/Creatinine Ratio 8.1 L, Glucose 240 H, Calcium 8.5, Troponin I High Sens 155 H* 08/10/21 23:02: Troponin I High Sens 142 H* 08/11/21 00:23: POC Glucose 233 H 08/11/21 04:34: WBC 5.6, RBC 3.22 L, Hgb 10.4 L, Hct 32.6 L, MCV 101.2 H, MCH 32.3 H, MCHC 31.9 L, RDW Std Deviation 53.6 H, RDW Coeff of Angela 14.3, Plt Count 157, MPV 10.0, Immature Gran % (Auto) 0.400, Neut % (Auto) 68.4, Lymph % (Auto) 13.8 L, Edwards % (Auto) 12.8 H, Eos % (Auto) 4.1, Baso % (Auto) 0.5, Absolute Neuts (auto) 3.8, Absolute Lymphs (auto) 0.77 L, Nucleated RBC % 0 08/11/21 04:34: Sodium 131 L, Potassium 3.9, Chloride 97 L, Carbon Dioxide 26.0, Anion Gap 8, BUN 43 H, Creatinine 5.24 H, Estim Creat Clear Calc 10.11, Est GFR (MDRD) Af Amer 11 L, Est GFR (MDRD) Non-Af 9 L, BUN/Creatinine Ratio 8.2 L, Glucose 236 H, Calcium 8.1 L 08/11/21 04:34: Troponin I High Sens 642 H* 08/11/21 06:33: POC Glucose 225 H 08/11/21 07:51: Troponin I High Sens 1068 H* 08/11/21 07:51: Hep Bs Antigen Non-Reactive Cardiology Labs/Tests 08/10/21 20:50: WBC 6.4, RBC 3.37 L, Hgb 11.0 L, Hct 32.9 L, MCV 97.6, MCH 32.6 H, MCHC 33.4, Plt Count 180, MPV 9.8, Immature Gran % (Auto) 0.300, Neut % (Auto) 72.5 H, Lymph % (Auto) 11.7 L, Edwards % (Auto) 11.7 H, Eos % (Auto) 3.3, Baso % (Auto) 0.5, Absolute Neuts (auto) 4.7, Nucleated RBC % 0 08/10/21 20:50: Sodium 128 L, Potassium 4.4, Chloride 97 L, Carbon Dioxide 24.0, Anion Gap 7, BUN 42 H, Creatinine 5.19 H, Est GFR (MDRD) Af Amer 11 L, Est GFR (MDRD) Non-Af 9 L, BUN/Creatinine Ratio 8.1 L, Glucose 240 H, Calcium 8.5 08/11/21 04:34: WBC 5.6, RBC 3.22 L, Hgb 10.4 L, Hct 32.6 L, MCV 101.2 H, MCH 32.3 H, MCHC 31.9 L, Plt Count 157, MPV 10.0, Immature Gran % (Auto) 0.400, Neut % (Auto) 68.4, Lymph % (Auto) 13.8 L, Edwards % (Auto) 12.8 H, Eos % (Auto) 4.1, Baso % (Auto) 0.5, Absolute Neuts (auto) 3.8, Nucleated RBC % 0 08/11/21 04:34: Sodium 131 L, Potassium 3.9, Chloride 97 L, Carbon Dioxide 26.0, Anion Gap 8, BUN 43 H, Creatinine 5.24 H, Est GFR (MDRD) Af Amer 11 L, Est GFR (MDRD) Non-Af 9 L, BUN/Creatinine Ratio 8.2 L, Glucose 236 H, Calcium 8.1 L Rhythm: EKG: ECHO: Stress Test: Cardiac Cath: PCI: CT Surgery: Holter monitor: EPS: PPM: CXR: Chest CT Scan: Radiography Diagnostic Testing: Radiology Impression Chest X-Ray 08/10/21 20:52 IMPRESSION: 1. No appreciable change compared to 06/15/2021 with chronic asymmetric elevation right hemidiaphragm and evidence of mild pulmonary vascular congestion. 2. Left IJ central venous catheter tip in the right atrium. Electronically Signed: Daniel Bardales DO at 21:59 EDT ,
--- NOTE | 2021-08-11 11:00 | PCM.CONS.R ---
Assessment & Plan Assessment/Plan (1) ESRD on hemodialysis: PLAN: Seen on dialysis today. See orders, flowsheets. Breathing feels better. Troponins are increasing. Seen by cardiology. Possible cardiac cath tomorrow. 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 Access is right IJ tunneled dialysis catheter. HPI Consult Data Date of Consult: 08/11/21 HPI Narrative HPI Narrative: FÉLIX PARKINSON, is a 60 F who presents to hospital with dyspnea. She is well-known to us. Known history of ESRD, on hemodialysis Wednesday, Wednesday, Wednesday schedule. She was apparently in a rehab in [place]. Was in the process of setting up dialysis in [place], decided to sign out AMA before the process was completed. I actually received a call from the dialysis unit last week and we have started transfer. She is here with shortness of breath. Seen on dialysis today. [facility] Medical History Back pain Breast cancer CAD (coronary artery disease) Cancer Cardiology follow-up encounter Chronic kidney disease with end stage renal failure on dialysis Chronic pain Congestive heart failure (CHF) Depression Diabetes DM2 (diabetes mellitus, type 2) DVT (deep venous thrombosis) ESRD (end stage renal disease) History of echocardiogram History of pain when walking History of renal dialysis History of renal disease HTN (hypertension) Hypertension Hyponatremia Hypothyroidism Injury of head and neck Insulin dependent diabetes mellitus Kidney disease Problem with dialysis access Shortness of breath on exertion Smoker Thyroid disease Type 2 diabetes mellitus VTE (venous thromboembolism) Wears glasses Home Medications promethazine 25 mg PO Q8H PRN PRN 05/14/13 [History Last Taken Unknown] carvedilol 6.25 mg PO BID 08/13/19 [History Last Taken 08/09/21] bupropion HCl 300 mg PO DAILY 12/21/19 [History Last Taken 08/09/21] calcium acetate(phosphat bind) 1,334 mg PO TIDCM 12/21/19 [History Last Taken 08/09/21] nitroglycerin 0.4 mg SUBLINGUAL Q5M PRN 12/21/19 [History Last Taken Unknown] gabapentin 300 mg PO TID 01/19/20 [History Last Taken 08/09/21] tizanidine 2 mg PO TID PRN PRN 10/02/20 [History Last Taken 08/09/21] albuterol sulfate 2 puff INHALATION Q4H PRN 08/28/20 [History Last Taken 08/27/20] letrozole 2.5 mg PO DAILY 08/28/20 [History Last Taken 08/09/21] magnesium oxide 400 mg PO DAILY 08/28/20 [History Last Taken 08/09/21] sertraline 25 mg PO QHS 08/28/20 [History Last Taken 08/09/21] levothyroxine 200 mcg PO DAILY 11/19/20 [History Last Taken 08/09/21] ondansetron 4 mg PO Q8H PRN #10 tab 06/16/21 [Rx Last Taken Unknown] furosemide 80 mg PO BID 07/18/21 [History Last Taken 08/09/21] hydrocodone-acetaminophen 1 tab PO Q6H 08/10/21 [History Last Taken 08/09/21] insulin glargine 27 unit SC BID 08/10/21 [History Last Taken 08/10/21] insulin lispro [Humalog KwikPen Insulin] See Protocol SUBCUT ACHS 08/10/21 [History Last Taken 08/09/21] nystatin [Nyamyc] 1 applic TOPICAL PRN PRN 08/10/21 [History Last Taken 08/09/21] sennosides [Sherie-nicholas] 2 tab PO BID PRN PRN 08/10/21 [History Last Taken Unknown] Allergy/AdvReac Type Severity Reaction Status Date / Time codeine phosphate Allergy Swelling Verified 08/10/21 20:27 [From Tylenol-Codeine #3] simvastatin [From Zocor] Allergy Other Verified 08/10/21 20:27 Family History Mother Diabetes Kidney disease CVA (cerebral vascular accident) Father Heart disease Mother Diabetes Surgical History (Updated 08/11/21 @ 10:[address] Braulio Corbin MD) History of cardiac catheterization History of heart artery stent History of right mastectomy S/P dialysis catheter insertion S/P right coronary artery (RCA) stent placement Social History household members: family Smoking Status: Heavy Smoker (>10/day) alcohol intake: never substance use type: does not use ROS ROS Narrative Negative except above Physical Exam Narrative Alert awake oriented x 3 no obvious distress no pallor no icterus no JVD s1s2 no murmurs lungs clear abdomen soft no organomegaly no edema no cyanosis Lab / Micro Data Result Diagrams: 08/11/21 04:34 08/11/21 04:34 Labs: Laboratory Results - last 24 hr 08/10/21 20:50: WBC 6.4, RBC 3.37 L, Hgb 11.0 L, Hct 32.9 L, MCV 97.6, MCH 32.6 H, MCHC 33.4, RDW Std Deviation 51.6 H, RDW Coeff of Angela 14.4, Plt Count 180, MPV 9.8, Immature Gran % (Auto) 0.300, Neut % (Auto) 72.5 H, Lymph % (Auto) 11.7 L, Republic % (Auto) 11.7 H, Eos % (Auto) 3.3, Baso % (Auto) 0.5, Absolute Neuts (auto) 4.7, Absolute Lymphs (auto) 0.75 L, Nucleated RBC % 0 08/10/21 20:50: Sodium 128 L, Potassium 4.4, Chloride 97 L, Carbon Dioxide 24.0, Anion Gap 7, BUN 42 H, Creatinine 5.19 H, Estim Creat Clear Calc 10.20, Est GFR (MDRD) Af Amer 11 L, Est GFR (MDRD) Non-Af 9 L, BUN/Creatinine Ratio 8.1 L, Glucose 240 H, Calcium 8.5, Troponin I High Sens 155 H* 08/10/21 23:02: Troponin I High Sens 142 H* 08/11/21 00:23: POC Glucose 233 H 08/11/21 04:34: WBC 5.6, RBC 3.22 L, Hgb 10.4 L, Hct 32.6 L, MCV 101.2 H, MCH 32.3 H, MCHC 31.9 L, RDW Std Deviation 53.6 H, RDW Coeff of Angela 14.3, Plt Count 157, MPV 10.0, Immature Gran % (Auto) 0.400, Neut % (Auto) 68.4, Lymph % (Auto) 13.8 L, Republic % (Auto) 12.8 H, Eos % (Auto) 4.1, Baso % (Auto) 0.5, Absolute Neuts (auto) 3.8, Absolute Lymphs (auto) 0.77 L, Nucleated RBC % 0 08/11/21 04:34: Sodium 131 L, Potassium 3.9, Chloride 97 L, Carbon Dioxide 26.0, Anion Gap 8, BUN 43 H, Creatinine 5.24 H, Estim Creat Clear Calc 10.11, Est GFR (MDRD) Af Amer 11 L, Est GFR (MDRD) Non-Af 9 L, BUN/Creatinine Ratio 8.2 L, Glucose 236 H, Calcium 8.1 L 08/11/21 04:34: Troponin I High Sens 642 H* 08/11/21 06:33: POC Glucose 225 H 08/11/21 07:51: Troponin I High Sens 1068 H* 08/11/21 07:51: Hep Bs Antigen Non-Reactive Radiology Impression Chest X-Ray 08/10/21 20:52 IMPRESSION: 1. No appreciable change compared to 06/15/2021 with chronic asymmetric elevation right hemidiaphragm and evidence of mild pulmonary vascular congestion. 2. Left IJ central venous catheter tip in the right atrium. Electronically Signed: Daniel Bardales DO at 21:59 EDT ,
--- NOTE | 2021-08-11 11:25 | PN.HOSP_ITS ---
Documented by User: Lorraine Rawls SCREEN PRINTING INSPECTOR, SCREEN PRINTING INSPECTOR-C 08/11/21 11:35 Subjective Subjective Patient seen and examined. Denies further chest pain. Undergoing dialysis. Shortness of breath improved. Objective Data Objective Data Vital Signs: Vital Signs Temp Pulse Resp BP Pulse Ox 97.5 F L 69 18 109/52 L 97 08/11/21 06:25 08/11/21 07:00 08/11/21 06:25 08/11/21 06:25 08/11/21 06:25 Oxygen Delivery Method Room Air Weight: 287 lb 0.67 oz Body Mass Index (BMI) 48.9 Intake & Output: Intake and Output for Last 24 Hours 08/09/21 08/10/21 08/11/21 23:59 23:59 23:59 Intake Total 280 / 280 Balance 280 / 280 Lab / Micro Data Result Diagrams: 08/11/21 04:34 08/11/21 04:34 Labs: Laboratory Results - last 24 hr 08/10/21 20:50: WBC 6.4, RBC 3.37 L, Hgb 11.0 L, Hct 32.9 L, MCV 97.6, MCH 32.6 H, MCHC 33.4, RDW Std Deviation 51.6 H, RDW Coeff of Angela 14.4, Plt Count 180, MPV 9.8, Immature Gran % (Auto) 0.300, Neut % (Auto) 72.5 H, Lymph % (Auto) 11.7 L, Mchenry % (Auto) 11.7 H, Eos % (Auto) 3.3, Baso % (Auto) 0.5, Absolute Neuts (auto) 4.7, Absolute Lymphs (auto) 0.75 L, Nucleated RBC % 0 08/10/21 20:50: Sodium 128 L, Potassium 4.4, Chloride 97 L, Carbon Dioxide 24.0, Anion Gap 7, BUN 42 H, Creatinine 5.19 H, Estim Creat Clear Calc 10.20, Est GFR (MDRD) Af Amer 11 L, Est GFR (MDRD) Non-Af 9 L, BUN/Creatinine Ratio 8.1 L, Glucose 240 H, Calcium 8.5, Troponin I High Sens 155 H* 08/10/21 23:02: Troponin I High Sens 142 H* 08/11/21 00:23: POC Glucose 233 H 08/11/21 04:34: WBC 5.6, RBC 3.22 L, Hgb 10.4 L, Hct 32.6 L, MCV 101.2 H, MCH 32.3 H, MCHC 31.9 L, RDW Std Deviation 53.6 H, RDW Coeff of Angela 14.3, Plt Count 157, MPV 10.0, Immature Gran % (Auto) 0.400, Neut % (Auto) 68.4, Lymph % (Auto) 13.8 L, Mchenry % (Auto) 12.8 H, Eos % (Auto) 4.1, Baso % (Auto) 0.5, Absolute Neuts (auto) 3.8, Absolute Lymphs (auto) 0.77 L, Nucleated RBC % 0 08/11/21 04:34: Sodium 131 L, Potassium 3.9, Chloride 97 L, Carbon Dioxide 26.0, Anion Gap 8, BUN 43 H, Creatinine 5.24 H, Estim Creat Clear Calc 10.11, Est GFR (MDRD) Af Amer 11 L, Est GFR (MDRD) Non-Af 9 L, BUN/Creatinine Ratio 8.2 L, Glucose 236 H, Calcium 8.1 L 08/11/21 04:34: Troponin I High Sens 642 H* 08/11/21 06:33: POC Glucose 225 H 08/11/21 07:51: Troponin I High Sens 1068 H* 08/11/21 07:51: Hep Bs Antigen Non-Reactive Radiography Diagnostic Testing: Radiology Impression Chest X-Ray 08/10/21 20:52 IMPRESSION: 1. No appreciable change compared to 06/15/2021 with chronic asymmetric elevation right hemidiaphragm and evidence of mild pulmonary vascular congestion. 2. Left IJ central venous catheter tip in the right atrium. Electronically Signed: Daniel Bardales, at 21:59 EDT , Physical Exam Const alert and oriented x3 Orientation / Consciousness: awake, oriented to person, oriented to place and oriented to time Nutritional Appearance: obese HEENT normocephalic and moist oral mucous membranes Eyes PERRL, EOMs intact bilaterally and conjunctivae normal Neck no lymphadenopathy Resp clear to auscultation bilaterally Auscultation: diminished lung sounds Cardio regular rate, regular rhythm and no murmurs Peripheral Pulses: pulses 2+ throughout GI normal to inspection, nondistended, normoactive bowel sounds, non-tender and non-distended Extremity General Extremity: edema bilateral lower extremity Skin no rashes or lesions noted Lesions: no lesions Rashes: no rashes Trauma: no lacerations or abrasions Neuro CN's II-XII intact bilaterally, no focal motor deficits, no sensory deficits noted and deep tendon reflexes 2+ bilaterally Psych mental status grossly normal and affect normal Assessment & Plan Assessment/Plan (1) Acute respiratory insufficiency: (2) Chest pain: PLAN: 1. Acute on chronic heart failure with preserved ejection fraction, complicated by end-stage renal disease with missed dialysis-chest x-ray with congestion. Continue home Lasix regimen. Dialysis resumed. Echo from 2019 with EF 60%. Repeat echo pending. 2. Chest pain with abnormal troponin-cardiology consulted. Plan for cath josé luis orrow. Continue aspirin. Allergy to statin. Echo pending 3. End-stage renal disease-nephrology following for hemodialysis. Patient missed dialysis due to leaving [facility] without outpatient established dialysis. Case management involved. 4. CAD with history of PCI-not on aspirin. Allergy to statin. Continue beta- joaquin. 5. Type 2 diabetes mellitus-continue home insulin regimen. Accu-Cheks with sliding scale insulin. 6. Hypothyroidism-continue Synthroid regimen. 7. Depression/anxiety-on bupropion, sertraline. 8. Morbid obesity-encouraged diet and lifestyle modifications. DVT prophylaxis-Heparin subcu This patient was seen by MARCELO Bullock under the supervision of Dr. Vivar. Time spent examining patient, reviewing data and subsequent management of care: 14 minutes Documented by User: Dr. Homar Vivar DO 08/11/21 12:34 Subjective Subjective Breathing well. LUE edema since fistula placement. Objective Data Lab / Micro Data Result Diagrams: 08/11/21 04:34 08/11/21 04:34 Physical Exam Const alert and no apparent distress Resp normal respiratory effort, no retractions, no use of accessory muscles and clear to auscultation bilaterally Cardio regular rate, regular rhythm, S1 normal heart sound and S2 normal heart sound GI normal to inspection, nondistended, normoactive bowel sounds, soft to palpation, non-tender and non-distended Extremity Extremity Narrative: LUE edema. Bilateral LE. Assessment & Plan Assessment/Plan (1) Acute respiratory insufficiency: PLAN: Patient seen and examined independently. Data and vitals reviewed. I agree with the above note by the nurse practitioner. 1. Acute on chronic heart failure exacerbation with preserved ejection fraction. EF of 60%. Complicated by noncompliance with dialysis. Apparently the [facility] AGAINST MEDICAL ADVICE and did not have a dialysis center set up when she was discharged. Patient apparently had her hemodialysis on the but did not have it on the . Patient to have dialysis here today. We will need to have dialysis center set up before discharge. 2. Non-ST elevation myocardial infarction Unclear type at this time Cardiology following Plan for cardiac catheterization on the . 3. End-stage renal disease Continue with hemodialysis Greater than 20 minutes reviewing data, examining patient. Charges/Coding Visit Charges Inpatient E&M: 54247 Subs Hosp L2
--- NOTE | 2021-08-11 11:30 | CASEMGMT ---
FLORI YU updated that patient will need setup for HD at [facility]. FLORI YU sent referral to [facility], awaiting acceptance. CM will continue to follow this patient and plan for a safe discharge.
--- NOTE | 2021-08-11 11:54 | DIALYSIS ---
HD x 4 hours complete. Tolerated tx well. Ran on 3k bath. UF of 4500ml. Used left chest wall dialysis catheter. Lumens closed with heparin per fill volume. Caps placed. Dressing is dry and intact. See tx sheet for more details. Report was given to FLORI Penaloza.
[2021-08-11] MEDS: buPROPion (XL) 300 MG TABLET.XL PO (12:03)
[2021-08-11] MEDS: Heparin 10,000 UNITS/10 ML Vial IV (12:04)
[2021-08-11] MEDS: Calcium Acetate 667 MG Capsule 1334 MG PO ×2 (12:05→16:56)
[2021-08-11] MEDS: Aspirin 81 MG TAB.CHEW PO (12:05)
[2021-08-11 12:15] LABS: Bedside Glucose 98 mg/dL (74-106)
--- NOTE | 2021-08-11 14:58 | CASEMGMT ---
Patient has a copy of her Healthcare Power of Box Bender and Healthcare Living Will on file at [facility]. Patient's niece, Urvashi is her Healthcare Power of Box Bender. Cinthya Garcia RAILROAD CAR REPAIRMAN COMPANION CAREGIVER
--- NOTE | 2021-08-11 15:56 | CASEMGMT ---
FLORI YU received message from Gilberto at [facility]. FLORI YU returned call to [place]. Per [facility] they are able to accept patient with scheduled chair time of MWF [id number]. They are able to have start of care for either Wednesday or Wednesday this week. FLORI YU to call and update Gilberto at [facility] potential discharge when available at [phone].
[2021-08-11] MEDS: Acetaminophen 325 MG Tablet 650 MG PO (16:56)
[2021-08-11 17:10] LABS: Bedside Glucose 148 mg/dL (74-106)
[2021-08-11] MEDS: Ibuprofen 400 MG Tablet 800 MG PO (22:02)
[2021-08-11] MEDS: Sertraline 50 MG Tablet 25 MG PO (22:08)
[2021-08-11 23:00] LABS: Bedside Glucose 218 mg/dL (74-106)
[2021-08-12 03:01] VITALS: PULSE 75
[2021-08-12 03:48] VITALS: BP 104/52; PULSE 69; RESP 18; TEMP 36.4; O2SAT 95
[2021-08-12] MEDS: 0.9% Saline Lock 10 ML Syringe IV (03:59)
--- NOTE | 2021-08-12 05:55 | EKG12_ITS ---
Test Reason : CP Blood Pressure : / mmHG Vent. Rate : 087 BPM Atrial Rate : 087 BPM P-R Int : 178 ms QRS Dur : 094 ms QT Int : 360 ms P-R-T Axes : 059 038 -59 degrees QTc Int : 433 ms Normal sinus rhythm Low voltage QRS Borderline ECG Confirmed by MARLENI SANTOS, RUSTAM ([id number]), book or script editor ALANNA FIELD ([id number]) on 08/13/2021 10:04:00 AM Referred By: JERALD Confirmed By:RUSTAM YEPEZ MD
[2021-08-12 05:58] LABS: Absolute Lymphocyte Count 0.64 X10^3/uL (0.83-4.51); Absolute Neutrophil Count 3.1 X10^3/uL (2.0-7.7); Basophil# 0.02 X10^3/uL; Basophil% 0.4 % (0-1); Eosinophil# 0.19 X10^3/uL; Eosinophils% 4.1 % (0-5); Hematocrit 30.8 % (37-47); Hemoglobin 10.1 g/dL (12.0-15.0); Lymphocyte # 0.64 X10^3/ul (0.83-4.51); Lymphocyte % 13.7 % (19-41); Mean Corp Hgb Conc 32.8 g/dL (32-36); Mean Corpuscular Hgb 33.3 pg (27.0-32.0); Mean Corpuscular Volume 101.7 fL (81-99); Mean Platelet Vol. 10.3 fl (6.2-12.0); Monocyte# 0.67 X10^3/uL; Monocyte% 14.3 % (0-10); NRBC Flagged by Analyzer 0 % (0-5); Neutrophil # 3.13 X10^3/uL (2.7-7.7); Neutrophil % 67.1 % (47-70); Platelet Count 128 K/mm3 (150-450); RBC Distribution Width CV 14.3 % (11.6-14.6); RBC Distribution Width SD 53.2 fl (35.1-43.9); Red Blood Count 3.03 M/mm3 (4.2-5.4); White Blood Count 4.7 K/mm3 (4.4-11.0)
[2021-08-12 06:08] LABS: International Normalized Ratio 1.1; Prothrombin Time (Protime)PT. 13.8 SECONDS (11.7-14.9)
[2021-08-12 06:14] VITALS: BP 123/54; PULSE 66; RESP 18; TEMP 36.4; O2SAT 96
[2021-08-12] MEDS: Aspirin 81 MG TAB.CHEW PO (06:18)
[2021-08-12] MEDS: Levothyroxine 100 MCG Tablet 200 MCG PO (06:18)
[2021-08-12] MEDS: Carvedilol 6.25 MG Tablet PO (06:18)
[2021-08-12] MEDS: Gabapentin 300 MG Capsule PO (06:18)
[2021-08-12 06:29] LABS: Anion Gap 9 (5-15); BUN 31 mg/dL (7-18); BUN/Creat Ratio 7.5 RATIO (10-20); Calcium,Total 8.3 mg/dL (8.5-10.1); Chloride 99 mmol/L (98-107); Creatinine, Serum 4.15 mg/dL (0.55-1.02); EST Glomerular Filtration Rate 12 mL/min (>60); Est Glom Filt Rate - Afr Amer 14 mL/min (>60); Estimated Creatinine Clearance 12.76 ml/min; Glucose 138 mg/dL (74-106); Potassium 3.8 mmol/L (3.5-5.1); Sodium Level 132 mmol/L (136-145)
[2021-08-12 07:03] VITALS: PULSE 61
[2021-08-12 07:11] LABS: Bedside Glucose 114 mg/dL (74-106)
--- NOTE | 2021-08-12 09:37 | CASEMGMT ---
Tertiary facilities in-network with patient's insurance: [facility], [facility], [facility] , [facility], [facility].
--- NOTE | 2021-08-12 10:05 | NURSING ---
VSA not done by 0900 as pt was in cath procedure
--- NOTE | 2021-08-12 10:43 | PCM.OP.PRO ---
Procedure Report Date of Procedure: 08/12/21 1. Selective left coronary angiography 2. Selective right coronary angiography 3. Measurement of LVEDP 4. Pullback pressure 5. Selective right common femoral artery angiography and placement of suture to right common femoral artery sheath And started on heparin infusion through the RCFA sheath. Preprocedure diagnosis and details; 60-year-old patient presented with symptoms of chest pain Has acute on chronic heart failure with preserved ejection fraction and end-stage renal disease with history of diabetes Has been on hemodialysis The ejection fraction is around 55-60% with calcified aortic valve diffuse calcification with no significant aortic stenosis Patient had a history of CAD with a PCI and stenting 2002 at [facility] using drug-eluting stent Cypher Type 2 diabetes mellitus Hypothyroidism morbidly obese and symptoms of chest pain resolved she had subsequent elevation of cardiac biomarkers high sensitive troponin with a clinical diagnosis of non-ST elevation UT. She had allergy to statin and she was started on aspirin. Consent; Risk and benefit of procedure explained in detail patient agreed to proceed informed consent obtained. Sedation; Patient seen intravenous Versed intravenous fentanyl. Access; 6 Ethiopian sheath placed in the right common femoral artery. Diagnostic catheter used; 1. 5 Ethiopian JL 4 2. 5 Ethiopian JR4 Procedure in detail; Patient brought to the Retail Pricing Coordinator in fasting state Difficulty getting access from the right radial artery therefore we will proceed with access from the right common femoral and then will proceed with a 5 Ethiopian JL 4 advanced ascending aorta cannulated the left main without difficulty noted she had calcified left coronary system involving the left main, LAD and the left circumflex Multiple views of the left coronary system were obtained following this the catheter exchanged for 5 Ethiopian JR4 advanced to ascending aorta and cannulated the right coronary ostium and multiple views of the RCA obtained following the same catheter was used across aortic valve and placed in the mid LV and measurement of LVEDP performed and a pullback pressure. Findings Hemodynamic; 1. LVEDP measured around 32 mmHg 2. There is no systolic gradient across aortic valve. 3. Left ventriculogram was not performed, echo evaluation showed LV function is preserved. Coronary angiography; 1. Left main calcified angiographically no significant atherosclerosis of the left main, bifurcating to LAD and the left circumflex. 2. Left anterior descending artery diffuse atherosclerosis in the mid LAD after the second diagonal branch nonobstructive around 50 to 60% LAD is moderate to large vessel reach all the way to the apex with abundant septal branches 3. Left circumflex artery moderate in size calcification and haziness noted at the bifurcation of the OM with a circumflex and then there is an eccentric calcified lesion in the midportion of the OM 1 branch Collateral was noted from the left coronary system to the RPDA 4. RCA large dominant vessel with patency of the stent noted, 80% stenosis distal to the mid RCA stent and diffuse atherosclerosis of the posterolateral and RPDA This patient with end-stage renal disease, diabetes calcified coronary arteries complex coronary anatomy involving the circumflex and RCA I discussed the case with the cattle driver at [facility] , will place sutures to right common femoral artery she is started on heparin And will transfer the patient for PCI of the RCA and elective atherectomy PCI of the OM1 due to heavily calcified end-stage renal disease with diabetes coronary atherosclerosis Patient stable clinically has no active chest pain and no hematoma at the right common femoral artery site. Braulio Corbin MD,FACC,[facility] [place]
--- NOTE | 2021-08-12 11:01 | NURSING ---
labelling machine operator updates charge nurse that pt is being transferred to [facility] direct admit to labour market economist for further treatment. Frederick GE updated and called with news.
--- NOTE | 2021-08-12 11:12 | PCM.DC.SUM ---
Documented by User: Lorraine Rawls NP, THREAD TRIMMER-C 08/12/21 11:20 Providers Date of Admission: 08/10/21 Date of Discharge: 08/12/21 Primary Care Physician: Dr. Iban Eldridge MD Consultations 08/10/21 22:50 Consult: Nephrology Routine Consulting Provider: Michael Max Reason for Consult: Dialysis EMERGENT Consult: No Notified: Yes Date Notified: 08/11/21 Time Notified: 06:54 Method of Notification: Text 08/11/21 06:17 Consult: Cardiology Routine Consulting Provider: Braulio Corbin Reason for Consult: elevated troponin EMERGENT Consult: No Notified: Yes Date Notified: 08/11/21 Time Notified: 06:55 Method of Notification: Text Reason For Visit: CHF EXACERBATION Diagnosis Discharge Diagnosis (1) Acute respiratory insufficiency: Status: Acute Code(s): R06.89 - Other abnormalities of breathing Medications at Discharge Home Medications promethazine 25 mg PO Q8H PRN PRN 05/14/13 carvedilol 6.25 mg PO BID 08/13/19 bupropion HCl 300 mg PO DAILY 12/21/19 calcium acetate(phosphat bind) 1,334 mg PO TIDCM 12/21/19 nitroglycerin 0.4 mg SUBLINGUAL Q5M PRN 12/21/19 gabapentin 300 mg PO TID 01/19/20 tizanidine 2 mg PO TID PRN PRN 01/19/20 albuterol sulfate 2 puff INHALATION Q4H PRN 08/28/20 letrozole 2.5 mg PO DAILY 08/28/20 magnesium oxide 400 mg PO DAILY 08/28/20 sertraline 25 mg PO QHS 08/28/20 levothyroxine 200 mcg PO DAILY 11/19/20 ondansetron 4 mg PO Q8H PRN #10 tab 06/16/21 furosemide 80 mg PO BID 07/18/21 hydrocodone-acetaminophen 1 tab PO Q6H 08/10/21 insulin glargine 27 unit SC BID 08/10/21 insulin lispro [Humalog KwikPen Insulin] See Protocol SUBCUT ACHS 08/10/21 nystatin [Nyamyc] 1 applic TOPICAL PRN PRN 08/10/21 sennosides [Sherie-nicholas] 2 tab PO BID PRN PRN 08/10/21 Hospital Course Operations None Procedures 2-D Echocardiogram, Cardiac catheterization and Dialysis Summary of Care Provided Hospital Course: Patient is a 60-year-old female admitted 08/10/2021 due to dyspnea and lower extremity swelling. 1. Acute on chronic heart failure with preserved ejection fraction, complicated by end-stage renal disease with missed dialysis-chest x-ray with congestion. Continue home Lasix regimen. Dialysis resumed. Echo from 2019 with EF 60%. Repeat echo with EF 55 to 60% 2. Chest pain with abnormal troponin-cardiology consulted during admission. Patient underwent heart cath. Due to calcified coronary arteries with complex coronary anatomy involving the circumflex and RCA, arrangements were made for tertiary facility transfer to address further PCI of the RCA with elective arthrectomy PCI of the OM1. [facility]. 3. End-stage renal disease-nephrology following for hemodialysis. Patient missed dialysis due to leaving halfway without outpatient established dialysis. Case management did set up chair time at [facility] for Wednesday, Wednesday, Wednesday 1315. 4. CAD with history of PCI-not on aspirin. Allergy to statin. Continue beta-joaquin. 5. Type 2 diabetes mellitus-continue home insulin regimen. 6. Hypothyroidism-continue Synthroid regimen. 7. Depression/anxiety-on bupropion, sertraline. 8. Morbid obesity-encouraged diet and lifestyle modifications. Physical Exam Const alert and oriented x3 Orientation / Consciousness: awake, oriented to person, oriented to place and oriented to time Nutritional Appearance: obese HEENT normocephalic and moist oral mucous membranes Eyes PERRL, EOMs intact bilaterally and conjunctivae normal Neck no lymphadenopathy Resp clear to auscultation bilaterally Auscultation: diminished lung sounds Cardio regular rate, regular rhythm and no murmurs Peripheral Pulses: pulses 2+ throughout GI normal to inspection, nondistended, normoactive bowel sounds, non-tender and non-distended Extremity General Extremity: edema bilateral lower extremity Skin no rashes or lesions noted Lesions: no lesions Rashes: no rashes Trauma: no lacerations or abrasions Neuro CN's II-XII intact bilaterally, no focal motor deficits, no sensory deficits noted and deep tendon reflexes 2+ bilaterally This patient was seen by MARCELO Bullock under the supervision of Dr. Vivar. Time spent examining patient, reviewing data and subsequent management of care: 15 minutes Weight / BMI Weight Weight: 277 lb 8.992 oz Body Mass Index (BMI) 48.9 ABG / Lab / Microbiology Data Result Diagrams: 08/12/21 04:40 08/12/21 04:40 Laboratory: Laboratory Results - last 24 hr 08/11/21 11:53: POC Glucose 98 08/11/21 16:52: POC Glucose 148 H 08/11/21 22:01: POC Glucose 218 H 08/12/21 04:40: WBC 4.7, RBC 3.03 L, Hgb 10.1 L, Hct 30.8 L, MCV 101.7 H, MCH 33.3 H, MCHC 32.8, RDW Std Deviation 53.2 H, RDW Coeff of Angela 14.3, Plt Count 128 L, MPV 10.3, Immature Gran % (Auto) 0.400, Neut % (Auto) 67.1, Lymph % (Auto) 13.7 L, [place] % (Auto) 14.3 H, Eos % (Auto) 4.1, Baso % (Auto) 0.4, Absolute Neuts (auto) 3.1, Absolute Lymphs (auto) 0.64 L, Nucleated RBC % 0 08/12/21 04:40: PT 13.8, INR 1.1 08/12/21 04:40: Sodium 132 L, Potassium 3.8, Chloride 99, Carbon Dioxide 24.0, Anion Gap 9, BUN 31 H, Creatinine 4.15 H, Estim Creat Clear Calc 12.76, Est GFR (MDRD) Af Amer 14 L, Est GFR (MDRD) Non-Af 12 L, BUN/Creatinine Ratio 7.5 L, Glucose 138 H, Calcium 8.3 L 08/12/21 07:06: POC Glucose 114 H Radiography Diagnostic Testing: Radiology Impression Echocardiogram 08/11/21 09:13 Interpretation Summary The estimated ejection fraction is 55-60 %. Mild No significant changes from previous echo on 01/20/2020 Ordering Physician: Braulio Corbin Referring Physician: MD Iban Eldridge Performed By: Barbara Lin RDCS Meaningful Use Info Meaningful Use Diagnoses (Choose all that apply): CHF CHF JAY/ARB ordered at discharge?: No Reason JAY/ARB not ordered?: Worsening renal disease Documented LVEF (%): 60 Discharge Plan Admission Admit Date/Time: 08/10/21 21:46 Primary Reason for Your Visit: CAD, CHF Attending Provider: Homar Vivar Primary Care Provider: Iban Eldridge Consulting Providers: Michael Max ; Braulio Corbin Discharge Orders/Prescriptions Prescriptions: No Action promethazine 25 MG tablet 25 mg PO Q8H PRN PRN (Reason: Nausea) RF: 0 carvedilol 6.25 MG tablet 6.25 mg PO BID RF: 0 nitroglycerin 0.4 MG tablet, sublingual 0.4 mg sublingual Q5M PRN (Reason: CHEST PAIN) RF: 0 calcium acetate(phosphat bind) 667 MG capsule 1,334 mg PO TIDCM RF: 0 bupropion HCl 300 MG tablet extended release 24 hr 300 mg PO DAILY RF: 0 gabapentin 300 MG capsule 300 mg PO TID RF: 0 tizanidine 2 MG capsule 2 mg PO TID PRN PRN (Reason: muscle relaxant) RF: 0 magnesium oxide 400 mg (241.3 mg magnesium) tablet 400 mg PO DAILY RF: 0 sertraline 25 mg tablet 25 mg PO QHS RF: 0 letrozole 2.5 mg tablet 2.5 mg PO DAILY RF: 0 albuterol sulfate 90 mcg/actuation HFA aerosol inhaler 2 puff INHALATION Q4H PRN (Reason: sob) RF: 0 levothyroxine 200 mcg tablet 200 mcg PO DAILY RF: 0 ondansetron 4 mg tablet,disintegrating 4 mg PO Q8H PRN (Reason: nausea and vomiting) Qty: 10 RF: 0 furosemide 80 mg tablet 80 mg PO BID RF: 0 sennosides [Sherie-nicholas] 8.6 mg tablet 2 tab PO BID PRN PRN (Reason: consitpation) RF: 0 nystatin [Nyamyc] 100,000 unit/gram powder 1 applic topical PRN PRN (Reason: redness) RF: 0 insulin glargine 100 UNITS/ML insulin pen 27 unit SC BID RF: 0 hydrocodone-acetaminophen 5-325 mg tablet 1 tab PO Q6H RF: 0 insulin lispro [Humalog KwikPen Insulin] 100 unit/mL insulin pen See Protocol unit subcut ACHS RF: 0 Referrals / Follow Up: Iban Eldridge MD [Primary Care Provider] - Disposition Disposition (needs filled in before D/C Order can be placed): [facility] Documented by User: Dr. Homar Vivar DO 08/12/21 13:27 Providers Date of Admission: 08/10/21 Reason For Visit: CHF EXACERBATION Medications at Discharge Home Medications promethazine 25 mg PO Q8H PRN PRN 05/14/13 carvedilol 6.25 mg PO BID 08/13/19 bupropion HCl 300 mg PO DAILY 12/21/19 calcium acetate(phosphat bind) 1,334 mg PO TIDCM 12/21/19 nitroglycerin 0.4 mg SUBLINGUAL Q5M PRN 12/21/19 gabapentin 300 mg PO TID 01/19/20 tizanidine 2 mg PO TID PRN PRN 01/19/20 albuterol sulfate 2 puff INHALATION Q4H PRN 08/28/20 letrozole 2.5 mg PO DAILY 08/28/20 magnesium oxide 400 mg PO DAILY 08/28/20 sertraline 25 mg PO QHS 08/28/20 levothyroxine 200 mcg PO DAILY 11/19/20 ondansetron 4 mg PO Q8H PRN #10 tab 06/16/21 furosemide 80 mg PO BID 07/18/21 hydrocodone-acetaminophen 1 tab PO Q6H 08/10/21 insulin glargine 27 unit SC BID 08/10/21 insulin lispro [Humalog KwikPen Insulin] See Protocol SUBCUT ACHS 08/10/21 nystatin [Nyamyc] 1 applic TOPICAL PRN PRN 08/10/21 sennosides [Sherie-nicholas] 2 tab PO BID PRN PRN 08/10/21 Hospital Course Operations None Procedures Cardiac catheterization Summary of Care Provided Minutes Spent on Discharge: 32 Hospital Course: Patient seen and examined independently. Data and vitals reviewed. I agree with the above note by the nurse practitioner. 1. Acute on chronic heart failure exacerbation with preserved ejection fraction. EF of 60%. Complicated by noncompliance with dialysis. Apparently the patient left this [facility] facility in [facility] AGAINST MEDICAL ADVICE and did not have a dialysis center set up when she was discharged. Patient apparently had her hemodialysis on the but did not have it on the . Patient to have dialysis here on the . Being that patient be transferred patient will need to have dialysis center arranged as outpatient from the tertiary facility. 2. Non-ST elevation myocardial infarction Unclear type at this time Cardiology following Cardiac catheterization showed 80% stenosis of the distal to the stent and diffuse atherosclerosis of the RPDA and posterolateral branch. Being that this would be a complex PCI, the recommendation was to transfer the patient to a tertiary facility. Patient was accepted at [facility] 3. End-stage renal disease Continue with hemodialysis Physical Exam Const alert Resp normal respiratory effort, no retractions, no use of accessory muscles and clear to auscultation bilaterally Cardio regular rate, regular rhythm, S1 normal heart sound and S2 normal heart sound GI normal to inspection, nondistended, normoactive bowel sounds, soft to palpation, non-tender and non-distended Extremity normal to inspection ABG / Lab / Microbiology Data Result Diagrams: 08/12/21 04:40 08/12/21 04:40 D/C Instructions Discharge Diet: Renal Diet Discharge Plan Admission Admit Date/Time: 08/10/21 21:46 Primary Reason for Your Visit: CAD, CHF Attending Provider: Homar Vivar Primary Care Provider: Iban Eldridge Consulting Providers: Michael Max ; Braulio Corbin Discharge Orders/Prescriptions Prescriptions: No Action promethazine 25 MG tablet 25 mg PO Q8H PRN PRN (Reason: Nausea) RF: 0 carvedilol 6.25 MG tablet 6.25 mg PO BID RF: 0 nitroglycerin 0.4 MG tablet, sublingual 0.4 mg sublingual Q5M PRN (Reason: CHEST PAIN) RF: 0 calcium acetate(phosphat bind) 667 MG capsule 1,334 mg PO TIDCM RF: 0 bupropion HCl 300 MG tablet extended release 24 hr 300 mg PO DAILY RF: 0 gabapentin 300 MG capsule 300 mg PO TID RF: 0 tizanidine 2 MG capsule 2 mg PO TID PRN PRN (Reason: muscle relaxant) RF: 0 magnesium oxide 400 mg (241.3 mg magnesium) tablet 400 mg PO DAILY RF: 0 sertraline 25 mg tablet 25 mg PO QHS RF: 0 letrozole 2.5 mg tablet 2.5 mg PO DAILY RF: 0 albuterol sulfate 90 mcg/actuation HFA aerosol inhaler 2 puff INHALATION Q4H PRN (Reason: sob) RF: 0 levothyroxine 200 mcg tablet 200 mcg PO DAILY RF: 0 ondansetron 4 mg tablet,disintegrating 4 mg PO Q8H PRN (Reason: nausea and vomiting) Qty: 10 RF: 0 furosemide 80 mg tablet 80 mg PO BID RF: 0 sennosides [Sherie-nicholas] 8.6 mg tablet 2 tab PO BID PRN PRN (Reason: consitpation) RF: 0 nystatin [Nyamyc] 100,000 unit/gram powder 1 applic topical PRN PRN (Reason: redness) RF: 0 insulin glargine 100 UNITS/ML insulin pen 27 unit SC BID RF: 0 hydrocodone-acetaminophen 5-325 mg tablet 1 tab PO Q6H RF: 0 insulin lispro [Humalog KwikPen Insulin] 100 unit/mL insulin pen See Protocol unit subcut ACHS RF: 0 Referrals / Follow Up: Iban Eldridge MD [Primary Care Provider] - Disposition Disposition (needs filled in before D/C Order can be placed): Acute Care Hospital Charges/Coding Visit Charges Inpatient E&M: 94352 Disch Hosp
--- NOTE | 2021-08-12 11:15 | NURSING ---
Reviewed charting with Amna Nation RN
--- NOTE | 2021-08-12 11:40 | CASEMGMT ---
RN GIGI called and left message at [facility] that patient is being transferred to [facility].
--- NOTE | 2021-08-12 12:38 | PCM.PN.CARD ---
Subjective Subjective No event from last night. No symptoms of chest pain reported Objective Data Vital Signs: Vital Signs Temp Pulse Resp BP Pulse Ox 97.6 F L 61 18 123/54 H 96 08/12/21 06:14 08/12/21 07:03 08/12/21 06:14 08/12/21 06:14 08/12/21 06:14 Oxygen Delivery Method Room Air Weight: 277 lb 8.992 oz Body Mass Index (BMI) 48.9 Intake & Output: Intake and Output for Last 24 Hours 08/10/21 08/11/21 08/12/21 23:59 23:59 23:59 Intake Total 935 / 935 Output Total 4500 / 4500 Balance -3565 / -3565 Lab / Micro Data Result Diagrams: 08/12/21 04:40 08/12/21 04:40 Labs: Laboratory Results - last 24 hr 08/11/21 16:52: POC Glucose 148 H 08/11/21 22:01: POC Glucose 218 H 08/12/21 04:40: WBC 4.7, RBC 3.03 L, Hgb 10.1 L, Hct 30.8 L, MCV 101.7 H, MCH 33.3 H, MCHC 32.8, RDW Std Deviation 53.2 H, RDW Coeff of Angela 14.3, Plt Count 128 L, MPV 10.3, Immature Gran % (Auto) 0.400, Neut % (Auto) 67.1, Lymph % (Auto) 13.7 L, [place] % (Auto) 14.3 H, Eos % (Auto) 4.1, Baso % (Auto) 0.4, Absolute Neuts (auto) 3.1, Absolute Lymphs (auto) 0.64 L, Nucleated RBC % 0 08/12/21 04:40: PT 13.8, INR 1.1 08/12/21 04:40: Sodium 132 L, Potassium 3.8, Chloride 99, Carbon Dioxide 24.0, Anion Gap 9, BUN 31 H, Creatinine 4.15 H, Estim Creat Clear Calc 12.76, Est GFR (MDRD) Af Amer 14 L, Est GFR (MDRD) Non-Af 12 L, BUN/Creatinine Ratio 7.5 L, Glucose 138 H, Calcium 8.3 L 08/12/21 07:06: POC Glucose 114 H Cardiology Labs/Tests 08/12/21 04:40: WBC 4.7, RBC 3.03 L, Hgb 10.1 L, Hct 30.8 L, MCV 101.7 H, MCH 33.3 H, MCHC 32.8, Plt Count 128 L, MPV 10.3, Immature Gran % (Auto) 0.400, Neut % (Auto) 67.1, Lymph % (Auto) 13.7 L, [place] % (Auto) 14.3 H, Eos % (Auto) 4.1, Baso % (Auto) 0.4, Absolute Neuts (auto) 3.1, Nucleated RBC % 0 08/12/21 04:40: PT 13.8, INR 1.1 08/12/21 04:40: Sodium 132 L, Potassium 3.8, Chloride 99, Carbon Dioxide 24.0, Anion Gap 9, BUN 31 H, Creatinine 4.15 H, Est GFR (MDRD) Af Amer 14 L, Est GFR (MDRD) Non-Af 12 L, BUN/Creatinine Ratio 7.5 L, Glucose 138 H, Calcium 8.3 L Rhythm: Underlying cardiac rhythm is sinus rhythm EKG: Normal sinus rhythm with no significant ST?T abnormalities ECHO: LV function preserved ejection fraction 55-60% Diffuse calcific mild aortic valve stenosis, aortic valve area calculated 1.7 cm? Stress Test: Cardiac Cath: Heavily calcified left coronary system with diffuse atherosclerosis of the mid LAD/nonobstructive Bifurcational calcification of the OM1 with the left circumflex with eccentric calcified mid OM1 collateralization noted from the left to the right RPDA Distal 80% stenosis after the mid RCA stent with diffuse atherosclerosis involving the sidebranch RPDA and posterolateral branch. Stent in the mid RCA is patent EDP measured 32 mmHg. Total amount of contrast used 72 cc Radiography Diagnostic Testing: Radiology Impression Echocardiogram 08/11/21 09:13 Interpretation Summary The estimated ejection fraction is 55-60 %. Mild No significant changes from previous echo on 01/20/2020 Ordering Physician: Braulio Corbin Referring Physician: MD Chente Iban Performed By: Barbara Lin [facility] Physical Exam Narrative And examined in the Correctional Supply Supervisor area She is alert orientated Not in acute distress in particular no symptoms of chest pain Cardiovascular exam S1-S2 regular Chest exam is clear to auscultation bilateral Examination abdomen soft/morbidly obese Pedal pulses palpable Assessment & Plan Assessment/Plan (1) Non-compliance with renal dialysis: (2) Acute on chronic diastolic CHF (congestive heart failure): (3) S/P right coronary artery (RCA) stent placement: (4) Elevated troponin: PLAN: Patient with a clinical diagnosis of CAD/non-ST elevation [place] Underwent cardiac catheterization which showed calcified left coronary system with eccentric atherosclerosis of the mid left circumflex Patency of RCA stent noted with 80% stenosis distal to the stent and diffuse atherosclerosis of the RPDA and posterolateral branch LV systolic function is preserved Cardiac care plan and recommendation; Patient will be transferred for complex PCI with surgical backup at [facility] Discussed the case with manager production. Patient waiting in the Correctional Supply Supervisor area for transfer
== END 2021-08-12 14:00 | disposition short-term general hospital (02) | DRG 280 ==
LOC: ED 21:38 → PCU 21:58
PROVIDERS: Internal Medicine Nephrology; Nurse Practitioner Family; Admitting Provider Family Medicine; Emergency Provider Emergency Medicine; PCP Family Medicine
DX: I13.2 Hypertensive heart and chronic kidney disease with heart failure and with stage 5 chronic kidney disease, or end stage renal disease (principal); I21.4 Non-ST elevation (NSTEMI) myocardial infarction; N18.6 End stage renal disease; I50.33 Acute on chronic diastolic (congestive) heart failure; E87.1 Hypo-osmolality and hyponatremia; Z68.42 Body mass index [BMI] 45.0-49.9, adult; E11.22 Type 2 diabetes mellitus with diabetic chronic kidney disease; Z99.2 Dependence on renal dialysis; Z79.4 Long term (current) use of insulin; E66.01 Morbid (severe) obesity due to excess calories; Z91.15 Patient's noncompliance with renal dialysis; I25.10 Atherosclerotic heart disease of native coronary artery without angina pectoris; E03.9 Hypothyroidism, unspecified; F17.200 Nicotine dependence, unspecified, uncomplicated; I44.0 Atrioventricular block, first degree; F41.9 Anxiety disorder, unspecified; Z85.3 Personal history of malignant neoplasm of breast; F32.A Depression, unspecified; Z86.718 Personal history of other venous thrombosis and embolism; Z79.899 Other long term (current) drug therapy; G89.29 Other chronic pain; Z95.5 Presence of coronary angioplasty implant and graft; R06.89 Other abnormalities of breathing
CPT/HCPCS: 36415; 71045; 80048; 82962; 84484; 85025; 85610; 87340; 90937; 93005; 93306; 93454; 97162; 97166; 97802; 99152; 99153; 99284; J7030; Q9957; A4216; C1769; C1894; C8929; G0257; Q9967

== ENCOUNTER → 2021-09-02 | Outpatient (REF) | payer SELFPAY ==
[2021-09-02 07:50] LABS: Hemoglobin A1c 5.2 % (3.8-5.6)
[2021-09-02 07:53] LABS: ALB/GLOB Ratio 0.7 RATIO (0.9-2.4); AST(SGOT) 25 U/L (15-37); Alanine Aminotransfer ALT/SGPT 25 U/L (13-56); Albumin, Serum 2.9 g/dL (3.2-5.0); Alkaline Phosphatase 204 U/L (45-117); Anion Gap 7 (5-15); BUN 34 mg/dL (7-18); BUN/Creat Ratio 7.8 RATIO (10-20); Calcium,Total 8.8 mg/dL (8.5-10.1); Chloride 95 mmol/L (98-107); Creatinine, Serum 4.36 mg/dL (0.55-1.02); EST Glomerular Filtration Rate 11 mL/min (>60); Est Glom Filt Rate - Afr Amer 13 mL/min (>60); Glucose 68 mg/dL (74-106); Magnesium 2.2 mg/dL (1.6-2.6); Phosphorus 3.6 mg/dL (2.5-4.9); Potassium 3.9 mmol/L (3.5-5.1); Protein, Total 6.9 g/dL (6.4-8.2); Sodium Level 130 mmol/L (136-145)
[2021-09-02 08:14] LABS: Vitamin D,25 Hydroxy 16.3 ng/mL
== END | disposition home or self-care (01) ==
LOC: OLS.SW1020 05:00
PROVIDERS: PCP Family Medicine; Visit Provider Family Medicine
DX: I21.4 Non-ST elevation (NSTEMI) myocardial infarction (principal); Z99.2 Dependence on renal dialysis; E11.22 Type 2 diabetes mellitus with diabetic chronic kidney disease; N18.6 End stage renal disease; B95.62 Methicillin resistant Staphylococcus aureus infection as the cause of diseases classified elsewhere
CPT/HCPCS: 36415; 80053; 82306; 83036; 83735; 84100

== ENCOUNTER → 2021-09-08 | Outpatient (REF) | payer SELFPAY ==
[2021-09-08 09:16] LABS: Hematocrit 25.9 % (37-47); Hemoglobin 8.5 g/dL (12.0-15.0); Mean Corp Hgb Conc 32.8 g/dL (32-36); Mean Corpuscular Hgb 32.3 pg (27.0-32.0); Mean Corpuscular Volume 98.5 fL (81-99); Mean Platelet Vol. 10.2 fl (6.2-12.0); Platelet Count 141 K/mm3 (150-450); RBC Distribution Width CV 13.2 % (11.6-14.6); RBC Distribution Width SD 46.8 fl (35.1-43.9); Red Blood Count 2.63 M/mm3 (4.2-5.4); White Blood Count 5.8 K/mm3 (4.4-11.0)
[2021-09-08 09:48] LABS: Anion Gap 5 (5-15); BUN 37 mg/dL (7-18); BUN/Creat Ratio 7.8 RATIO (10-20); Calcium,Total 8.8 mg/dL (8.5-10.1); Chloride 93 mmol/L (98-107); Creatinine, Serum 4.76 mg/dL (0.55-1.02); EST Glomerular Filtration Rate 10 mL/min (>60); Est Glom Filt Rate - Afr Amer 12 mL/min (>60); Glucose 83 mg/dL (74-106); Potassium 4.4 mmol/L (3.5-5.1); Sodium Level 127 mmol/L (136-145)
[2021-09-08 12:44] LABS: Hemoglobin A1c 5.2 % (3.8-5.6)
== END | disposition home or self-care (01) ==
LOC: OLS.SW1020 05:00
PROVIDERS: PCP Family Medicine; Visit Provider Family Medicine
DX: E03.9 Hypothyroidism, unspecified (principal); E11.22 Type 2 diabetes mellitus with diabetic chronic kidney disease; N18.9 Chronic kidney disease, unspecified
CPT/HCPCS: 36415; 80048; 83036; 84443; 85027

== ENCOUNTER 2021-09-14 13:16 | Emergency (ER) | payer MEDICARE, MEDICAID, SELFPAY ==
[2021-09-14] VITALS (8 sets, daily range): BP systolic 117–151; BP diastolic 55–83; PULSE 66–84; RESP 12–20; TEMP 36.2–36.8; O2SAT 96–100; BMI 54.4
--- NOTE | 2021-09-14 13:53 | EKG12_ITS ---
Test Reason : EDEMA Blood Pressure : / mmHG Vent. Rate : 078 BPM Atrial Rate : 078 BPM P-R Int : 000 ms QRS Dur : 090 ms QT Int : 378 ms P-R-T Axes : 000 026 268 degrees QTc Int : 430 ms Accelerated Junctional rhythm Low voltage QRS Nonspecific T wave abnormality Abnormal ECG Confirmed by SHIN SANTOS, JUN ([id number]), tape editor MAVIS DYE ([id number]) on 09/16/2021 1:17:19 PM Referred By: BB Confirmed By:JUN MELISSA MD
--- NOTE | 2021-09-14 13:54 | EDS_ITS ---
HPI History of Present Illness Chief Complaint: Edema Informant: patient and family Onset/Context/Timing Onset: Month(s) (1) Context: Gradual Onset Timing: Continuous Quality: edema Location: all over, all the way to face Current Severity: Severe Maximum Severity: Severe Worsened by: nothing Relieved by: nothing Associated Symptoms Associated Symptoms: sob, orthopnea, cough Narrative Narrative: 61-year-old nonambulatory anuretic shelter patient on dialysis 4 times weekly presenting with edema and shortness of breath that has been ongoing for over a month. During that time she has had trouble swallowing and really is not eating very much. Patient refuses to have a feeding tube of any sort. Presents on holiday weekend Wednesday for this because family from [place] saw her today and were concerned about her. They do not know, nor does the patient, who her digital media representative is. She denies any chest pain. She has had a nonproductive cough, she had a COVID test 2 days ago at the shelter that was negative. [facility] Medical History Acute on chronic diastolic CHF (congestive heart failure) Back pain Breast cancer CAD (coronary artery disease) Cancer Cardiology follow-up encounter Chronic kidney disease with end stage renal failure on dialysis Chronic pain Congestive heart failure (CHF) Depression Diabetes DM2 (diabetes mellitus, type 2) DVT (deep venous thrombosis) ESRD (end stage renal disease) ESRD on hemodialysis History of echocardiogram History of pain when walking History of renal dialysis History of renal disease HTN (hypertension) Hypertension Hypertension Hyponatremia Hypothyroidism Hypothyroidism Injury of head and neck Insulin dependent diabetes mellitus Kidney disease Non-compliance with renal dialysis Problem with dialysis access Shortness of breath on exertion Smoker Thyroid disease Tobacco abuse Type 2 diabetes mellitus VTE (venous thromboembolism) Wears glasses Home Medications promethazine 25 mg PO Q8H PRN PRN 05/14/13 [History Last Taken Unknown] carvedilol 6.25 mg PO DAILY 08/13/19 [History Last Taken 08/09/21] bupropion HCl 300 mg PO DAILY 12/21/19 [History Last Taken 08/09/21] calcium acetate(phosphat bind) 1,334 mg PO TIDCM 12/21/19 [History Last Taken 08/09/21] nitroglycerin 0.4 mg SUBLINGUAL Q5M PRN 12/21/19 [History Last Taken Unknown] gabapentin 100 mg PO DAILY 01/19/20 [History Last Taken 08/09/21] tizanidine 2 mg PO TID PRN PRN 01/19/20 [History Last Taken 08/09/21] albuterol sulfate 2 puff INHALATION Q6H 08/28/20 [History Last Taken 08/27/20] magnesium oxide 400 mg PO DAILY 08/28/20 [History Last Taken 08/09/21] sertraline 100 mg PO DAILY 08/28/20 [History Last Taken 08/09/21] ondansetron 4 mg PO Q8H PRN #10 tab 06/16/21 [Rx Last Taken Unknown] insulin glargine 28 unit SC QHS 08/10/21 [History Last Taken 08/10/21] insulin lispro [Humalog KwikPen Insulin] See Protocol SUBCUT ACHS 08/10/21 [History Last Taken 08/09/21] Fleet Enema 118 ml ND DAILY PRN 09/14/21 [History Last Taken Unknown] Renal Vitamin 1 tab PO DAILY 09/14/21 [History Last Taken Unknown] acetaminophen 650 mg PO Q4H PRN 09/14/21 [History Last Taken Unknown] acetaminophen 650 mg ND Q4H PRN 09/14/21 [History Last Taken Unknown] aluminum-magnesium hydroxide 30 ml PO Q4H PRN PRN 09/14/21 [History Last Taken Unknown] aspirin 81 mg PO DAILY 09/14/21 [History Last Taken Unknown] atorvastatin 80 mg PO QHS 09/14/21 [History Last Taken Unknown] bisacodyl 10 mg ND DAILY PRN 09/14/21 [History Last Taken Unknown] calcitriol 0.25 mcg PO DAILY 09/14/21 [History Last Taken Unknown] dextrose [Glucose Gel] 10 g PO Q15M PRN 09/14/21 [History Last Taken Unknown] glucagon 1 mg IM PRN PRN 09/14/21 [History Last Taken Unknown] guaifenesin 200 mg PO Q4H PRN 09/14/21 [History Last Taken Unknown] levothyroxine 300 mcg PO DAILY 30 Days #45 tab 09/14/21 [Rx Last Taken Unknown] lidocaine 1 patch TOPICAL DAILY 09/14/21 [History Last Taken Unknown] loratadine 10 mg PO DAILY 09/14/21 [History Last Taken Unknown] losartan 50 mg PO DAILY 09/14/21 [History Last Taken Unknown] magnesium hydroxide [Milk of Magnesia] 5 ml PO DAILY PRN 09/14/21 [History Last Taken Unknown] miconazole nitrate 1 applic TOPICAL BID 09/14/21 [History Last Taken Unknown] ticagrelor 90 mg PO BID 09/14/21 [History Last Taken Unknown] Allergy/AdvReac Type Severity Reaction Status Date / Time codeine phosphate Allergy Swelling Verified 09/14/21 13:24 [From Tylenol-Codeine #3] simvastatin [From Zocor] Allergy Other Verified 09/14/21 13:24 Family History Mother Diabetes Kidney disease CVA (cerebral vascular accident) Father Heart disease Mother Diabetes Surgical History History of cardiac catheterization History of heart artery stent History of right mastectomy S/P dialysis catheter insertion S/P right coronary artery (RCA) stent placement Social History household members: family Smoking Status: Heavy Smoker (>10/day) alcohol intake: never substance use type: does not use ROS ROS ED Constitutional Constitutional ED: Denies chills or fever(s) Eyes Eyes: Denies change in vision or diplopia ENT ENT ED: Denies rhinorrhea or sore throat Cardiovascular Cardiovascular: Reports orthopnea and pedal edema; Denies chest pain or palpitations Respiratory/Chest Respiratory/Chest: Reports cough, dyspnea and orthopnea Gastrointestinal Gastrointestinal: Reports abdominal pain and other Details: Abdomen hurts from abdominal wall being swollen ; Denies diarrhea, nausea or vomiting Genitourinary Genitourinary ED: Denies dysuria or hematuria Musculoskeletal Musculoskeletal: Reports back pain and other Details: Chronic low back pain that has hurt for years, unchanged. Extremities edematous. ; Denies neck pain Integumentary Denies abscess or rash Neurologic Neurologic: Denies headache(s), paresthesias or weakness Psychiatric Psychiatric: Denies anxiety or suicidal thoughts EXAM Physical Exam Const Vital Signs: 09/14/21 13:17 09/14/21 13:20 09/14/21 15:15 Temperature 97.3 F L 97.3 F L Temperature Source Temporal Temporal Pulse Rate 66 78 73 Respiratory Rate 20 H 20 H 12 Respiratory Pattern Blood Pressure 140/60 H 140/60 H 117/83 H Blood Pressure Mean 86 86 94 Pulse Ox 97 96 100 Oxygen Delivery Method Room Air Room Air Nasal Cannula Oxygen Flow Rate (L/min) 2 09/14/21 15:31 09/14/21 15:37 09/14/21 16:24 Temperature 98.3 F Temperature Source Temporal Pulse Rate 73 84 Respiratory Rate 12 12 Respiratory Pattern Normal Blood Pressure 117/83 H 151/81 H Blood Pressure Mean 94 104 Pulse Ox 100 100 Oxygen Delivery Method Nasal Cannula Nasal Cannula Oxygen Flow Rate (L/min) 2 2 09/14/21 17:34 09/14/21 17:47 Temperature 97.2 F L Temperature Source Temporal Pulse Rate 74 71 Respiratory Rate 15 14 Respiratory Pattern Blood Pressure 146/55 H Blood Pressure Mean 85 Pulse Ox 100 Oxygen Delivery Method Nasal Cannula Oxygen Flow Rate (L/min) 2 Positive well nourished and well developed General Appearance ED: well developed and NAD Nutritional Appearance: morbidly obese HEENT Reports moist mucous membranes normocephalic and atraumatic Eyes PERRL and EOMs intact bilaterally Neck full ROM and supple Neck Narrative: Exam for JVD limited by obesity Resp normal respiratory effort, no retractions and clear to auscultation bilaterally Resp Narrative: Limited exam due to patient not able to sit up even with assistance, only able to roll over, and morbidly obese and swollen Effort and Inspection: able to speak in complete sentences Cardio regular rate, regular rhythm and no murmurs GI non-tender and non-distended Auscultation: normoactive bowel sounds Palpation: soft Back/Spine no CVA tenderness General Back: other FROM Extremity normal to inspection General Extremety ED: Negative for edema, pulses abnormal or tenderness General Extremity: Negative for edema or pulses abnormal Neuro oriented x3, CN's II-XII intact bilaterally and no sensory deficits noted Sensorium / Orientation: awake and alert Motor Exam: strength 5/5 throughout Skin no rashes or lesions noted and no wounds Skin Narrative: Noninfected pitting edema throughout entire body including arms and face. Edema seems symmetric. MDM MDM MDM Narrative Medical decision making narrative: Patient has a documented history of congestive heart failure, her last echocardiogram was on 08/11/2021, does not show any signs of congestive heart failure, there is mild aortic stenosis and moderate diffuse aortic valve calcifications without sclerosis, and her ejection fraction is 55-60% without a significant change compared with the prior echocardiogram. I did not get a BNP on her since she has chronic renal failure and it will be of limited help in determining the cause of her dyspnea. I suspect she has renal anasarca, and it is significant, but there are details that are unknown to me in the emergency department at this time such as how much fluid they are able to safely pull off of her each dialysis session, what her blood pressure does, if she is getting full sessions, etc. The patient cannot really tell me the answers to any of this. Her accompanying paperwork does show her medications which include levothyroxine 200 mcg once daily, but they do not say who her digital media representative is and no one seems to know right now. Her work-up shows anemia that is relatively stable, and a very high TSH at 25. Also noted mild hyponatremia which she has a history of, and chronic renal failure. I discussed with the on-call physician for Dr. Barbour, Dr. Antonio. Given her weight, he states we can definitely go up on her levothyroxine and going to 300 mcg would be reasonable. I gave her an albuterol/Atrovent nebulizer treatment and her breathing is better. She is on 2 L of oxygen at the shelter, and she is satting at 97% and speaking in full sentences. He agrees with allowing her to go back, increasing her levothyroxine, and seeing if nephrology can perform all ultrafiltration at her next sessions. Since I do not know who her digital media representative is I am sending a note back on her discharge papers about this. Her x-ray is interpreted by radiology as showing vascular congestion, effusions, some atelectasis, I do not think the patient has pulmonary edema, I think a lot of this is due to obesity and she already has albuterol on her medication list to get if she is short of breath, and since she is stable and this is chronic I think she is stable to be discharged without admission. Lab Data Attestation: I reviewed the patient's lab results. Labs: Laboratory Results - last 24 hr 09/14/21 09/14/21 15:20 15:20 WBC 6.8 RBC 2.70 L Hgb 8.7 L Hct 26.1 L MCV 96.7 MCH 32.2 H MCHC 33.3 RDW Std Deviation 48.6 H RDW Coeff of Angela 13.9 Plt Count 154 MPV 9.6 Immature Gran % (Auto) 0.600 Neut % (Auto) 78.0 H Lymph % (Auto) 7.0 L Menard % (Auto) 11.0 H Eos % (Auto) 3.1 Baso % (Auto) 0.3 Absolute Neuts (auto) 5.3 Absolute Lymphs (auto) 0.48 L Nucleated RBC % 0 Sodium 128 L Potassium 4.9 Chloride 92 L Carbon Dioxide 29.0 Anion Gap 7 BUN 36 H Creatinine 4.27 H Estim Creat Clear Calc 12.25 Est GFR (MDRD) Af Amer 14 L Est GFR (MDRD) Non-Af 11 L BUN/Creatinine Ratio 8.4 L Glucose 84 Calcium 8.5 Total Bilirubin 0.40 AST 34 ALT 25 Alkaline Phosphatase 176 H Troponin I High Sens 24 Total Protein 6.7 Albumin 2.9 L Globulin 3.8 Albumin/Globulin Ratio 0.8 L TSH 25.20 H Radiography Diagnostic Testing: Clinical Impression(s) from Imaging Studies Chest X-Ray 09/14/21 15:40 IMPRESSION: Left-sided IJ catheter in stable position. Borderline cardiomegaly. Pulmonary vascular congestion. Platelike atelectasis versus linear scar in the right midlung zone. Questionable small bilateral pleural effusions. No pneumothorax. Surgical clips in the right axilla and the right lower neck. Electronically Signed: Noah Arora MD at 17:37 EDT Reading Location ID and State: [facility] / [place] Tel , Service support , EKG Initial EKG: Attestation: I personally reviewed and interpreted this EKG as follows: Interpretation: No Acute Injury Pattern Comments: Sinus rhythm versus accelerated junctional, difficult to see P waves but they are probably present Prior EKG tracings: available for review Prior: Unchanged Discharge Plan Triage Chief Complaint: Edema ED Provider: Timi Baumann Dx/Rx/DC Orders Clinical Impression: Myxedema, Anasarca, Chronic kidney disease with end stage renal failure on dialysis, Hypothyroidism, Chronic dyspnea, Chronic pain Instructions: Hypothyroidism Myxedema Dc Prescriptions: Continued promethazine 25 MG tablet 25 mg PO Q8H PRN PRN (Reason: Nausea) RF: 0 carvedilol 6.25 MG tablet 6.25 mg PO DAILY RF: 0 nitroglycerin 0.4 MG tablet, sublingual 0.4 mg sublingual Q5M PRN (Reason: CHEST PAIN) RF: 0 calcium acetate(phosphat bind) 667 MG capsule 1,334 mg PO TIDCM RF: 0 bupropion HCl 300 MG tablet extended release 24 hr 300 mg PO DAILY RF: 0 gabapentin 300 MG capsule 100 mg PO DAILY RF: 0 tizanidine 2 MG capsule 2 mg PO TID PRN PRN (Reason: muscle relaxant) RF: 0 magnesium oxide 400 mg (241.3 mg magnesium) tablet 400 mg PO DAILY RF: 0 sertraline 25 mg tablet 100 mg PO DAILY RF: 0 albuterol sulfate 90 mcg/actuation HFA aerosol inhaler 2 puff INHALATION Q6H RF: 0 ondansetron 4 mg tablet,disintegrating 4 mg PO Q8H PRN (Reason: nausea and vomiting) Qty: 10 RF: 0 insulin glargine 100 UNITS/ML insulin pen 28 unit SC QHS RF: 0 insulin lispro [Humalog KwikPen Insulin] 100 unit/mL insulin pen See Protocol unit subcut ACHS RF: 0 losartan 50 mg Tablet 50 mg PO DAILY RF: 0 glucagon 1 mg Kit 1 mg IM PRN PRN (Reason: Hypoglycemia) RF: 0 atorvastatin 80 mg Tablet 80 mg PO QHS RF: 0 acetaminophen 325 mg Tablet 650 mg PO Q4H PRN (Reason: pain/fever) RF: 0 acetaminophen 650 mg Suppository 650 mg ND Q4H PRN (Reason: pain/fever) RF: 0 lidocaine 4 % Adhesive Patch,Medicated 1 patch TOPICAL DAILY RF: 0 dextrose [Glucose Gel] 40 % Gel 10 g PO Q15M PRN (Reason: Hypoglycemia) RF: 0 miconazole nitrate 2 % Powder 1 applic TOPICAL BID RF: 0 aspirin 81 mg Tablet,Delayed Release (Dr/Ec) 81 mg PO DAILY RF: 0 magnesium hydroxide [Milk of Magnesia] 400 mg/5 mL Suspension 5 ml PO DAILY PRN (Reason: Constipation) RF: 0 bisacodyl 10 mg Suppository 10 mg ND DAILY PRN (Reason: Constipation) RF: 0 aluminum-magnesium hydroxide 225-200 mg/5 mL Suspension 30 ml PO Q4H PRN PRN (Reason: Indigestion) RF: 0 Fleet Enema 19-7 gram/118 mL Enema 118 ml ND DAILY PRN (Reason: Constipation) RF: 0 Renal Vitamin 0.8 mg Tablet 1 tab PO DAILY RF: 0 calcitriol 0.25 mcg Capsule 0.25 mcg PO DAILY RF: 0 guaifenesin 200 mg/5 mL Liquid 200 mg PO Q4H PRN (Reason: Cough) RF: 0 loratadine 10 mg Capsule 10 mg PO DAILY RF: 0 ticagrelor 90 mg Tablet 90 mg PO BID RF: 0 Changed levothyroxine 200 mcg tablet 300 mcg PO DAILY 30 Days Qty: 45 RF: 0 Primary Care Provider: Ambrosio Barbour Referrals: Ambrosio Barbour MD [Primary Care Provider] - 3-5 Days Activity Restrictions/Additional Instructions: Please contact whoever the patient's digital media representative is and see if they can safely do ultrafiltration/take off more fluid at her dialysis sessions. Disposition Disposition: Home, Self Care
[2021-09-14 15:30] LABS: Absolute Lymphocyte Count 0.48 X10^3/uL (0.83-4.51); Absolute Neutrophil Count 5.3 X10^3/uL (2.0-7.7); Basophil# 0.02 X10^3/uL; Basophil% 0.3 % (0-1); Eosinophil# 0.21 X10^3/uL; Eosinophils% 3.1 % (0-5); Hematocrit 26.1 % (37-47); Hemoglobin 8.7 g/dL (12.0-15.0); Lymphocyte # 0.48 X10^3/ul (0.83-4.51); Mean Corp Hgb Conc 33.3 g/dL (32-36); Mean Corpuscular Hgb 32.2 pg (27.0-32.0); Mean Corpuscular Volume 96.7 fL (81-99); Mean Platelet Vol. 9.6 fl (6.2-12.0); Monocyte# 0.75 X10^3/uL; NRBC Flagged by Analyzer 0 % (0-5); Neutrophil # 5.31 X10^3/uL (2.7-7.7); POSITIVE DIFFERENTIAL YES; Platelet Count 154 K/mm3 (150-450); RBC Distribution Width CV 13.9 % (11.6-14.6); RBC Distribution Width SD 48.6 fl (35.1-43.9); White Blood Count 6.8 K/mm3 (4.4-11.0)
[2021-09-14 15:32] LABS: Differential Indicated SCAN CRITERIA MET
--- NOTE | 2021-09-14 15:40 | RAD_ITS ---
STUDY: X-RAY CHEST REASON FOR EXAM: Female, 61 years old. sob TECHNIQUE: 1 view COMPARISON: 08/10/2021 FINDINGS: Please see the impression. RAD/Chest 1 View (Portable) IMPRESSION: Left-sided IJ catheter in stable position. Borderline cardiomegaly. Pulmonary vascular congestion. Platelike atelectasis versus linear scar in the right midlung zone. Questionable small bilateral pleural effusions. No pneumothorax. Surgical clips in the right axilla and the right lower neck. Electronically Signed: Noah Arora MD at 17:37 EDT ,
[2021-09-14 16:05] LABS: ALB/GLOB Ratio 0.8 RATIO (0.9-2.4); AST(SGOT) 34 U/L (15-37); Alanine Aminotransfer ALT/SGPT 25 U/L (13-56); Albumin, Serum 2.9 g/dL (3.2-5.0); Alkaline Phosphatase 176 U/L (45-117); Anion Gap 7 (5-15); BUN 36 mg/dL (7-18); BUN/Creat Ratio 8.4 RATIO (10-20); Calcium,Total 8.5 mg/dL (8.5-10.1); Chloride 92 mmol/L (98-107); Creatinine, Serum 4.27 mg/dL (0.55-1.02); EST Glomerular Filtration Rate 11 mL/min (>60); Est Glom Filt Rate - Afr Amer 14 mL/min (>60); Estimated Creatinine Clearance 12.25 ml/min; Globulin 3.8 g/dL (2.2-4.2); Glucose 84 mg/dL (74-106); Potassium 4.9 mmol/L (3.5-5.1); Protein, Total 6.7 g/dL (6.4-8.2); Sodium Level 128 mmol/L (136-145); Troponin-I HS 24 pg/mL (3.0-54.0)
[2021-09-14] MEDS: traMADol 50 MG Tablet PO (17:33)
[2021-09-14] MEDS: Ipratropium/Albuterol Sulfate 3 ML AMPUL.NEB INHALATION (17:45)
[2021-09-14] MEDS: Levothyroxine 100 MCG Tablet PO (18:30)
--- NOTE | 2021-09-14 18:40 | NURSING ---
CALLED PHYSICIANS AT 1840 ETA 30 MIN
--- NOTE | 2021-09-14 18:58 | ED.RN ---
Report given to [facility].
--- NOTE | 2021-09-14 19:19 | NURSING ---
PHYSICIANS ARRIVED 1919
== END 2021-09-14 19:35 | disposition home or self-care (01) ==
PROVIDERS: Emergency Provider Emergency Medicine; PCP Family Medicine; Visit Provider Emergency Medicine
DX: E03.9 Hypothyroidism, unspecified (principal); I13.2 Hypertensive heart and chronic kidney disease with heart failure and with stage 5 chronic kidney disease, or end stage renal disease; Z99.2 Dependence on renal dialysis; I50.9 Heart failure, unspecified; E11.22 Type 2 diabetes mellitus with diabetic chronic kidney disease; N18.6 End stage renal disease; E66.01 Morbid (severe) obesity due to excess calories; Z79.4 Long term (current) use of insulin; R60.1 Generalized edema; I25.10 Atherosclerotic heart disease of native coronary artery without angina pectoris; G89.29 Other chronic pain; R06.00 Dyspnea, unspecified; F32.A Depression, unspecified; F17.200 Nicotine dependence, unspecified, uncomplicated; Z79.82 Long term (current) use of aspirin; Z79.899 Other long term (current) drug therapy; Z95.5 Presence of coronary angioplasty implant and graft
CPT/HCPCS: 71045; 80053; 84443; 84484; 85025; 93005; 94640; 99285; A4216

== ENCOUNTER 2021-09-16 12:20 | Emergency (ER) | payer MEDICARE, MEDICAID, SELFPAY ==
[2021-09-16 12:22] VITALS: BP 113/48; PULSE 68; RESP 22; TEMP 36.2; O2SAT 95; BMI 56.5
[2021-09-16 12:35] VITALS: O2SAT 96
--- NOTE | 2021-09-16 12:42 | EKG12_ITS ---
Test Reason : CHEST PAIN Blood Pressure : / mmHG Vent. Rate : 068 BPM Atrial Rate : 066 BPM P-R Int : 000 ms QRS Dur : 092 ms QT Int : 330 ms P-R-T Axes : 000 037 264 degrees QTc Int : 350 ms Normal sinus rhythm Low voltage QRS Nonspecific T wave abnormality Abnormal ECG Confirmed by SHIN SANTOS, JUN ([id number]), editor greeting card ALANNA FIELD ([id number]) on 09/17/2021 9:01:41 AM Referred By: BB Confirmed By:JUN MELISSA MD
--- NOTE | 2021-09-16 12:52 | EDS_ITS ---
HPI History of Present Illness Chief Complaint: Shortness of Breath Informant: patient Narrative Narrative: Patient sent in from [facility] for increasing dyspnea today. She states increasing generalized swelling for the past 3 weeks. History of heart failure. She is not on a diuretic. Denies orthopnea chronic 2 L of oxygen at home. She is a dialysis patient urinates once a day. She is a dialysis Wednesday and on Fridays. She had full dialysis yesterday today only 2 hours before symptoms started and sent here. 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 She states admitted a month ago for something similar. She has been at the facility for a month now. Denies cough symptoms. In addition reports lower back pain that is chronic she takes Percocets for this. Of note 2 days ago seen in ED for increasing swelling work-up initiated she had elevated TSH her levothyroxine was increased. Vitals are stable therefore she was discharged back to facility for her planned dialysis treatments. Also noted from discharge summaries and they have July had chest pains cath had difficult lesions transferred up to [facility] from copied summaries had PCI with stent intervention to RCA LAD and circumflex. She is on aspirin and Brilinta. She denies any current chest pains. [facility] Medical History Acute on chronic diastolic CHF (congestive heart failure) Back pain Breast cancer CAD (coronary artery disease) Cancer Cardiology follow-up encounter Chronic kidney disease with end stage renal failure on dialysis Chronic pain Congestive heart failure (CHF) Depression Diabetes DM2 (diabetes mellitus, type 2) DVT (deep venous thrombosis) ESRD (end stage renal disease) ESRD on hemodialysis History of echocardiogram History of pain when walking History of renal dialysis History of renal disease HTN (hypertension) Hypertension Hypertension Hyponatremia Hypothyroidism Hypothyroidism Injury of head and neck Insulin dependent diabetes mellitus Kidney disease Non-compliance with renal dialysis Problem with dialysis access Shortness of breath on exertion Smoker Thyroid disease Tobacco abuse Type 2 diabetes mellitus VTE (venous thromboembolism) Wears glasses Home Medications promethazine 25 mg PO Q8H PRN PRN 05/14/13 [History Last Taken Unknown] carvedilol 6.25 mg PO DAILY 08/13/19 [History Last Taken 08/09/21] bupropion HCl 300 mg PO DAILY 12/21/19 [History Last Taken 08/09/21] calcium acetate(phosphat bind) 1,334 mg PO TIDCM 12/21/19 [History Last Taken 08/09/21] nitroglycerin 0.4 mg SUBLINGUAL Q5M PRN 12/21/19 [History Last Taken Unknown] gabapentin 100 mg PO DAILY 01/19/20 [History Last Taken 08/09/21] tizanidine 2 mg PO TID PRN PRN 01/19/20 [History Last Taken 08/09/21] albuterol sulfate 2 puff INHALATION Q6H 08/28/20 [History Last Taken 08/27/20] magnesium oxide 400 mg PO DAILY 08/28/20 [History Last Taken 08/09/21] sertraline 100 mg PO DAILY 08/28/20 [History Last Taken 08/09/21] ondansetron 4 mg PO Q8H PRN #10 tab 06/16/21 [Rx Last Taken Unknown] insulin glargine 28 unit SC QHS 08/10/21 [History Last Taken 08/10/21] insulin lispro [Humalog KwikPen Insulin] See Protocol SUBCUT ACHS 08/10/21 [History Last Taken 08/09/21] Fleet Enema 118 ml MT DAILY PRN 09/14/21 [History Last Taken Unknown] Renal Vitamin 1 tab PO DAILY 09/14/21 [History Last Taken Unknown] acetaminophen 650 mg PO Q4H PRN 09/14/21 [History Last Taken Unknown] acetaminophen 650 mg MT Q4H PRN 09/14/21 [History Last Taken Unknown] aluminum-magnesium hydroxide 30 ml PO Q4H PRN PRN 09/14/21 [History Last Taken Unknown] aspirin 81 mg PO DAILY 09/14/21 [History Last Taken Unknown] atorvastatin 80 mg PO QHS 09/14/21 [History Last Taken Unknown] bisacodyl 10 mg MT DAILY PRN 09/14/21 [History Last Taken Unknown] calcitriol 0.25 mcg PO DAILY 09/14/21 [History Last Taken Unknown] dextrose [Glucose Gel] 10 g PO Q15M PRN 09/14/21 [History Last Taken Unknown] glucagon 1 mg IM PRN PRN 09/14/21 [History Last Taken Unknown] guaifenesin 200 mg PO Q4H PRN 09/14/21 [History Last Taken Unknown] levothyroxine 300 mcg PO DAILY 30 Days #45 tab 09/14/21 [Rx Last Taken Unknown] lidocaine 1 patch TOPICAL DAILY 09/14/21 [History Last Taken Unknown] loratadine 10 mg PO DAILY 09/14/21 [History Last Taken Unknown] losartan 50 mg PO DAILY 09/14/21 [History Last Taken Unknown] magnesium hydroxide [Milk of Magnesia] 30 ml PO DAILY PRN 09/14/21 [History Last Taken Unknown] miconazole nitrate 1 applic TOPICAL BID 09/14/21 [History Last Taken Unknown] ticagrelor 90 mg PO BID 09/14/21 [History Last Taken Unknown] Allergy/AdvReac Type Severity Reaction Status Date / Time codeine phosphate Allergy Swelling Verified 09/16/21 12:41 [From Tylenol-Codeine #3] simvastatin [From Zocor] Allergy Other Verified 09/16/21 12:41 Family History Mother Diabetes Kidney disease CVA (cerebral vascular accident) Father Heart disease Mother Diabetes Surgical History History of cardiac catheterization History of heart artery stent History of right mastectomy S/P dialysis catheter insertion S/P right coronary artery (RCA) stent placement Social History household members: family Smoking Status: Heavy Smoker (>10/day) alcohol intake: never substance use type: does not use ROS ROS ED Constitutional Constitutional ED: Denies chills, fever(s) or sweats Eyes Eyes: Denies change in vision ENT ENT ED: Denies dysphagia or sore throat Cardiovascular Cardiovascular: Denies chest pain, leg edema, palpitations or racing heartbeat Respiratory/Chest Respiratory/Chest: Reports dyspnea; Denies cough or dyspnea on exertion Gastrointestinal Gastrointestinal: Denies abdominal pain, diarrhea, nausea or vomiting Genitourinary Genitourinary ED: Denies dysuria, hematuria or urinary frequency Musculoskeletal Musculoskeletal: Reports back pain; Denies extremity pain or neck pain Integumentary Denies rash or wounds Neurologic Neurologic: Denies headache(s), paresthesias or weakness EXAM Physical Exam Const Vital Signs: 09/16/21 12:22 09/16/21 12:35 09/16/21 12:42 Temperature 97.1 F L Temperature Source Temporal Pulse Rate 68 Respiratory Rate 22 H Respiratory Effort Short of Breath Respiratory Depth Shallow Respiratory Pattern Tachypnea Blood Pressure 113/48 L Blood Pressure Mean 69 Pulse Ox 95 Oxygen Delivery Method Room Air Room Air Room Air 09/16/21 14:20 Temperature Temperature Source Pulse Rate 69 Respiratory Rate 12 Respiratory Effort Respiratory Depth Respiratory Pattern Blood Pressure 130/82 H Blood Pressure Mean 98 Pulse Ox Oxygen Delivery Method Positive well nourished and well developed Constitutional Narrative: Patient was off her nasal cannula during my evaluation was 95%. General Appearance ED: well developed and NAD HEENT Reports moist mucous membranes normocephalic and atraumatic Eyes PERRL, EOMs intact bilaterally and conjunctivae normal General Eye ED: Yes normal appearance of both eyes Neck no lymphadenopathy and supple General: Negative for tenderness Chest Wall Chest Narrative: Left upper chest Vas-Cath clean, dry, intact. Chest: Negative for tenderness Resp normal respiratory effort and normal air movement Effort and Inspection: symmetric chest movement; Negative for respiratory distress Cardio regular rate, regular rhythm and no murmurs Peripheral Pulses: pulses 2+ throughout GI normal to inspection, nondistended, normoactive bowel sounds and non-tender Palpation: Negative for guarding or rebound tenderness present Back/Spine no CVA tenderness and no thoracic nor lumbar tenderness Extremity normal to inspection Extremity Narrative: Generalized edema bilateral lower extremity abdomen and bilateral arms. Pitting. General Extremety ED: Yes edema; Negative for tenderness General Extremity: edema Neuro oriented x3 and no sensory deficits noted Sensorium / Orientation: awake and alert Skin no rashes or lesions noted and no wounds MDM MDM MDM Narrative Medical decision making narrative: Patient vital signs stable on arrival reporting increasing dyspnea today. Patient report worsening symptoms and was seen here 2 days ago. She was sent from dialysis. We will check labs EKG. Per nursing difficult IV stick due to her swelling, will discuss with PICC line team for placement of IV. Patient will likely need admission due to worsening symptoms since being evaluated 2 days ago. For PICC line team needed nephrology clearance. In the interim nursing able to access wrist IV 22-gauge with blood drawn and sent. Chest x-ray 1 view reviewed by myself and read by radiology shows no acute process chest Vas-Cath was intact. Labs with chronic anemia hemoglobin 8.6. BUN 27 creatinine 3.66. She is dialysis patient. Potassium returned at 5.1. Sodium 124 her previous sodium today is 128 she has been previously as low as 122 in the past. Her troponin negative. EKG sinus rhythm. Patient not hypoxic stable on home oxygen however she reports worsening anasarca she was here 2 days ago she states only urinates once a day. [employer] Dr. Beck did return call and states no PICC line to be placed central line as needed. Currently has access with an IV. We will discussed with hospital team for admission. 1405: I spoke with hospitalist Dr. Mariscal, who edition discussed with nep hrologist Dr. Beck, there is no fluid overload on chest x-ray she is not hypoxic not requiring more oxygen, actually was 95% on room air on arrival. Reported she has chronic anasarca known to nephrology. She has the hyponatremia however clinically does not have any symptoms of nausea vomiting confusion. They do feel she can be managed back at her facility where dialysis is performed which will be reinitiated tomorrow. This will be relayed back to the facility. All questions were answered. Lab Data Labs: Laboratory Results - last 24 hr 09/16/21 09/16/21 09/16/21 13:00 13:00 13:00 WBC 3.1 L RBC 2.67 L Hgb 8.6 L Hct 26.1 L MCV 97.8 MCH 32.2 H MCHC 33.0 RDW Std Deviation 51.5 H RDW Coeff of Angela 14.4 Plt Count 123 L MPV 10.0 Immature Gran % (Auto) 0.700 Neut % (Auto) 80.7 H Lymph % (Auto) 6.2 L [place] % (Auto) 9.5 Eos % (Auto) 2.6 Baso % (Auto) 0.3 Absolute Neuts (auto) 2.5 Absolute Lymphs (auto) 0.19 L Nucleated RBC % 0 Diff Path Review May foll Platelet Estimate ADEQUATE RBC Morphology NORM C+C PT 15.4 H INR 1.3 APTT 33.4 Sodium 124 L Potassium 5.1 Chloride 90 L Carbon Dioxide 28.0 Anion Gap 6 BUN 27 H Creatinine 3.66 H Estim Creat Clear Calc 14.29 Est GFR (MDRD) Af Amer 16 L Est GFR (MDRD) Non-Af 14 L BUN/Creatinine Ratio 7.4 L Glucose 82 Calcium 8.6 Total Bilirubin 0.40 AST 43 H ALT 27 Alkaline Phosphatase 164 H Troponin I High Sens 33 Total Protein 6.9 Albumin 2.9 L Globulin 4.0 Albumin/Globulin Ratio 0.7 L Radiography Chest X-Ray - ED: 1 View, Read by ED Physician and Read by Radiologist Diagnostic Testing: Clinical Impression(s) from Imaging Studies Chest X-Ray 09/16/21 13:14 IMPRESSION: The tip of the left double lumen catheter is seen within the right atrium. The lungs are clear. Electronically Signed: Georges Lucas MD at 13:44 EDT , EKG Initial EKG: Attestation: I personally reviewed and interpreted this EKG as follows: Comments: This rate of 68, no ST or T wave changes. Noted accelerated junctional rhythm on electronic reading however P waves were noted however small on multiple leads. Discharge Plan Triage Chief Complaint: Shortness of Breath ED Provider: Siddhartha Rae Dx/Rx/DC Orders Clinical Impression: Anasarca, Anemia, Chronic kidney disease with end stage renal failure on dialysis, Acute hyponatremia Instructions: ED Chronic Kidney Disease (CKD), ED Hyponatremia Prescriptions: No Action promethazine 25 MG tablet 25 mg PO Q8H PRN PRN (Reason: Nausea) RF: 0 carvedilol 6.25 MG tablet 6.25 mg PO DAILY RF: 0 nitroglycerin 0.4 MG tablet, sublingual 0.4 mg sublingual Q5M PRN (Reason: CHEST PAIN) RF: 0 calcium acetate(phosphat bind) 667 MG capsule 1,334 mg PO TIDCM RF: 0 bupropion HCl 300 MG tablet extended release 24 hr 300 mg PO DAILY RF: 0 gabapentin 300 MG capsule 100 mg PO DAILY RF: 0 tizanidine 2 MG capsule 2 mg PO TID PRN PRN (Reason: muscle relaxant) RF: 0 magnesium oxide 400 mg (241.3 mg magnesium) tablet 400 mg PO DAILY RF: 0 sertraline 25 mg tablet 100 mg PO DAILY RF: 0 albuterol sulfate 90 mcg/actuation HFA aerosol inhaler 2 puff INHALATION Q6H RF: 0 ondansetron 4 mg tablet,disintegrating 4 mg PO Q8H PRN (Reason: nausea and vomiting) Qty: 10 RF: 0 insulin glargine 100 UNITS/ML insulin pen 28 unit SC QHS RF: 0 insulin lispro [Humalog KwikPen Insulin] 100 unit/mL insulin pen See Protocol unit subcut ACHS RF: 0 losartan 50 mg Tablet 50 mg PO DAILY RF: 0 glucagon 1 mg Kit 1 mg IM PRN PRN (Reason: Hypoglycemia) RF: 0 atorvastatin 80 mg Tablet 80 mg PO QHS RF: 0 acetaminophen 325 mg Tablet 650 mg PO Q4H PRN (Reason: pain/fever) RF: 0 acetaminophen 650 mg Suppository 650 mg MT Q4H PRN (Reason: pain/fever) RF: 0 lidocaine 4 % Adhesive Patch,Medicated 1 patch TOPICAL DAILY RF: 0 dextrose [Glucose Gel] 40 % Gel 10 g PO Q15M PRN (Reason: Hypoglycemia) RF: 0 miconazole nitrate 2 % Powder 1 applic TOPICAL BID RF: 0 aspirin 81 mg Tablet,Delayed Release (Dr/Ec) 81 mg PO DAILY RF: 0 magnesium hydroxide [Milk of Magnesia] 400 mg/5 mL Suspension 30 ml PO DAILY PRN (Reason: Constipation) RF: 0 bisacodyl 10 mg Suppository 10 mg MT DAILY PRN (Reason: Constipation) RF: 0 aluminum-magnesium hydroxide 225-200 mg/5 mL Suspension 30 ml PO Q4H PRN PRN (Reason: Indigestion) RF: 0 Fleet Enema 19-7 gram/118 mL Enema 118 ml MT DAILY PRN (Reason: Constipation) RF: 0 Renal Vitamin 0.8 mg Tablet 1 tab PO DAILY RF: 0 calcitriol 0.25 mcg Capsule 0.25 mcg PO DAILY RF: 0 guaifenesin 200 mg/5 mL Liquid 200 mg PO Q4H PRN (Reason: Cough) RF: 0 loratadine 10 mg Capsule 10 mg PO DAILY RF: 0 ticagrelor 90 mg Tablet 90 mg PO BID RF: 0 levothyroxine 200 mcg tablet 300 mcg PO DAILY 30 Days Qty: 45 RF: 0 Primary Care Provider: Ambrosio Barbour Referrals: Ambrosio Barbour MD [Primary Care Provider] - Activity Restrictions/Additional Instructions: Your sodium is 124 you are not having any clinical symptoms of hyponatremia. You did not require increasing oxygen. Per power mule operator Dr. Beck and hospital team, they will continue dialysis at your facility for your swelling. Disposition Disposition: Snf Facility Discharge Location: [facility]
--- NOTE | 2021-09-16 12:59 | ED.RN ---
called salesperson furniture for picc placement. need approval from kidney dr bravo. dr farris paged.
[2021-09-16 13:13] LABS: Absolute Lymphocyte Count 0.19 X10^3/uL (0.83-4.51); Absolute Neutrophil Count 2.5 X10^3/uL (2.0-7.7); Basophil# 0.01 X10^3/uL; Basophil% 0.3 % (0-1); Eosinophil# 0.08 X10^3/uL; Eosinophils% 2.6 % (0-5); Hematocrit 26.1 % (37-47); Hemoglobin 8.6 g/dL (12.0-15.0); Lymphocyte # 0.19 X10^3/ul (0.83-4.51); Lymphocyte % 6.2 % (19-41); Mean Corpuscular Hgb 32.2 pg (27.0-32.0); Mean Corpuscular Volume 97.8 fL (81-99); Monocyte# 0.29 X10^3/uL; Monocyte% 9.5 % (0-10); NRBC Flagged by Analyzer 0 % (0-5); Neutrophil # 2.46 X10^3/uL (2.7-7.7); Neutrophil % 80.7 % (47-70); POSITIVE DIFFERENTIAL YES; Platelet Count 123 K/mm3 (150-450); RBC Distribution Width CV 14.4 % (11.6-14.6); RBC Distribution Width SD 51.5 fl (35.1-43.9); Red Blood Count 2.67 M/mm3 (4.2-5.4); White Blood Count 3.1 K/mm3 (4.4-11.0)
[2021-09-16 13:14] LABS: Differential Indicated SCAN CRITERIA MET
--- NOTE | 2021-09-16 13:14 | RAD_ITS ---
STUDY: X-RAY CHEST REASON FOR EXAM: Female, 61 years old. Tip placement confirmation TECHNIQUE: Single AP portable view of the chest. COMPARISON: Comparison is made with prior study 09/14/2021. FINDINGS: A left-sided double-lumen catheter is seen with the tip in the right atrium. This is unchanged. Surgical clips are seen in the right axillary region. Stable elevation of the right hemidiaphragm. There is no demonstrated pleural abnormality. Normal size heart. Normal mediastinum and [place]. Normal visualized pulmonary arteries. Normal visualized aortic arch and descending thoracic aorta. There are degenerative changes of the visualized thoracic spine. Normal visualized ribs, clavicles, and shoulders. There is no demonstrated abnormality of the visualized soft tissue structures of the upper abdomen. RAD/Chest 1 View (Portable) IMPRESSION: The tip of the left double lumen catheter is seen within the right atrium. The lungs are clear. Electronically Signed: Georges Lucas MD at 13:44 EDT ,
--- NOTE | 2021-09-16 13:24 | ED.RN ---
[facility] called and is waiting on dr jasmin bryant for picc placement
[2021-09-16 13:26] LABS: International Normalized Ratio 1.3; Prothrombin Time (Protime)PT. 15.4 SECONDS (11.7-14.9)
[2021-09-16 13:27] LABS: Partial Thromboplast Time 33.4 Seconds (24.1-36.2)
[2021-09-16] MEDS: oxyCODONE 5 MG Tablet PO (13:32)
[2021-09-16 13:33] LABS: ALB/GLOB Ratio 0.7 RATIO (0.9-2.4); AST(SGOT) 43 U/L (15-37); Alanine Aminotransfer ALT/SGPT 27 U/L (13-56); Albumin, Serum 2.9 g/dL (3.2-5.0); Alkaline Phosphatase 164 U/L (45-117); Anion Gap 6 (5-15); BUN 27 mg/dL (7-18); BUN/Creat Ratio 7.4 RATIO (10-20); Calcium,Total 8.6 mg/dL (8.5-10.1); Chloride 90 mmol/L (98-107); Creatinine, Serum 3.66 mg/dL (0.55-1.02); EST Glomerular Filtration Rate 14 mL/min (>60); Est Glom Filt Rate - Afr Amer 16 mL/min (>60); Estimated Creatinine Clearance 14.29 ml/min; Glucose 82 mg/dL (74-106); Potassium 5.1 mmol/L (3.5-5.1); Protein, Total 6.9 g/dL (6.4-8.2); Sodium Level 124 mmol/L (136-145); Troponin-I HS 33 pg/mL (3.0-54.0)
--- NOTE | 2021-09-16 13:44 | ED.RN ---
Per Dr Beck we are not to place a midline or picc line. They are concerned about access later on for her
[2021-09-16 14:18] LABS: Platelet Estimate ADEQUATE (ADEQ); Red Cell Morphology NORM C+C NORMAL (NORM C&C)
[2021-09-16 14:20] VITALS: BP 130/82; PULSE 69; RESP 12
--- NOTE | 2021-09-16 14:39 | NURSING ---
Report called to [facility] nurse at this time. Physician's ambulance eta of 60-75 min.
[2021-09-18 11:25] LABS: Pathologist Review Reviewed
== END 2021-09-16 15:57 ==
PROVIDERS: Emergency Provider Emergency Medicine; PCP Family Medicine; Visit Provider Emergency Medicine
DX: R60.1 Generalized edema (principal); I13.2 Hypertensive heart and chronic kidney disease with heart failure and with stage 5 chronic kidney disease, or end stage renal disease; Z99.2 Dependence on renal dialysis; I50.9 Heart failure, unspecified; E11.22 Type 2 diabetes mellitus with diabetic chronic kidney disease; N18.6 End stage renal disease; Z79.4 Long term (current) use of insulin; D64.9 Anemia, unspecified; I25.10 Atherosclerotic heart disease of native coronary artery without angina pectoris; F17.200 Nicotine dependence, unspecified, uncomplicated; E03.9 Hypothyroidism, unspecified; F32.A Depression, unspecified; Z79.82 Long term (current) use of aspirin; Z79.899 Other long term (current) drug therapy; Z95.5 Presence of coronary angioplasty implant and graft
CPT/HCPCS: 71045; 80053; 84484; 85025; 85610; 85730; 87811; 93005; 99285

== ENCOUNTER → 2021-10-06 | Outpatient (REF) | payer MEDICARE, MEDICAID, SELFPAY ==
[2021-10-06 11:26] LABS: Hematocrit 24.6 % (37-47); Hemoglobin 7.7 g/dL (12.0-15.0); Mean Corp Hgb Conc 31.3 g/dL (32-36); Mean Corpuscular Hgb 32.8 pg (27.0-32.0); Mean Corpuscular Volume 104.7 fL (81-99); Mean Platelet Vol. 10.3 fl (6.2-12.0); POSITIVE MORPHOLOGY YES; Platelet Count 138 K/mm3 (150-450); RBC Distribution Width CV 17.2 % (11.6-14.6); RBC Distribution Width SD 65.8 fl (35.1-43.9); Red Blood Count 2.35 M/mm3 (4.2-5.4); White Blood Count 5.3 K/mm3 (4.4-11.0)
== END | disposition home or self-care (01) ==
LOC: OLS.SW300 08:30
PROVIDERS: PCP Family Medicine; Referring Provider Family Medicine; Visit Provider Family Medicine
DX: N18.6 End stage renal disease (principal)
CPT/HCPCS: 85027

== ENCOUNTER → 2021-10-10 | Outpatient (CLI) | payer MEDICARE, MEDICAID, SELFPAY ==
[2021-10-10 11:35] LABS: Hemoglobin 7.7 g/dL (12.0-15.0)
== END | disposition home or self-care (01) ==
PROVIDERS: PCP Family Medicine; Referring Provider Internal Medicine Nephrology; Visit Provider Internal Medicine Nephrology
DX: D64.9 Anemia, unspecified (principal)
CPT/HCPCS: 85018

== ENCOUNTER → 2021-10-29 08:25 | Outpatient (REF) | payer MEDICARE, MEDICAID, SELFPAY ==
[2021-10-29 12:08] LABS: Free T3 0.9 pg/mL (2.18-3.98); T4 Free Direct 1.28 ng/dL (0.76-1.46); Thyroid Stim Hormone (TSH) 9.94 uIU/mL (0.358-3.74)
== END ==
LOC: OLS.SW300 08:25
PROVIDERS: PCP Family Medicine; Visit Provider Family Medicine
DX: E11.9 Type 2 diabetes mellitus without complications (principal)
CPT/HCPCS: 84439; 84443; 84481

== ENCOUNTER 2021-10-30 09:55 | Inpatient (IN) | payer MEDICARE, MEDICAID, SELFPAY ==
[2021-10-30] VITALS (11 sets, daily range): BP systolic 97–151; BP diastolic 49–109; PULSE 70–94; RESP 18–20; TEMP 36.5–37.1; O2SAT 81–100; BMI 51.1; BMI 49.6
--- NOTE | 2021-10-30 10:14 | EX.ED.DYSGE1 ---
HPI <SHORTY Manning - Last Filed: 10/30/21 12:00> History of Present Illness Chief Complaint: Wound Narrative Narrative: 61-year-old female with PMH of HTN, HLD, CAD with stents, DM2, ESRD on HD presents with bilateral buttock wounds x1 month. She lives in a SNF and is bedbound. She states the wounds have been getting worse over the last month and are painful. She was on antibiotics but is not presently. Today she saw Dr. Berry in the office who sent her in for admission and surgical debridement. Patient denies fever or chills and states she is in normal health. She has been getting dialysis but has had persistent swelling of all her extremities over the last 2 months. PFSH <SHORTY Manning - Last Filed: 10/30/21 12:00> [facility] Medical History Acute on chronic diastolic CHF (congestive heart failure) Back pain Breast cancer CAD (coronary artery disease) Cancer Cardiology follow-up encounter Chronic kidney disease with end stage renal failure on dialysis Chronic pain Congestive heart failure (CHF) Depression Diabetes DM2 (diabetes mellitus, type 2) DVT (deep venous thrombosis) ESRD (end stage renal disease) ESRD on hemodialysis History of echocardiogram History of pain when walking History of renal dialysis History of renal disease HTN (hypertension) Hypertension Hypertension Hyponatremia Hypothyroidism Hypothyroidism Injury of head and neck Insulin dependent diabetes mellitus Kidney disease Non-compliance with renal dialysis Problem with dialysis access Shortness of breath on exertion Smoker Thyroid disease Tobacco abuse Type 2 diabetes mellitus VTE (venous thromboembolism) Wears glasses Home Medications promethazine 25 mg tablet 25 mg PO Q8H PRN PRN Nausea 05/14/13 [History Last Taken Unknown] carvedilol 6.25 mg tablet 6.25 mg PO DAILY HEART 08/13/19 [History Last Taken 09/16/21] bupropion HCl 300 mg 24 hr tablet, extended release 300 mg PO DAILY DEPRESSION 12/21/19 [History Last Taken 09/16/21] nitroglycerin 0.4 mg sublingual tablet 0.4 mg sublingual Q5M PRN CHEST PAIN 12/21/19 [History Last Taken Unknown] gabapentin 300 mg capsule 100 mg PO DAILY neuropathy 01/19/20 [History Last Taken 09/16/21] tizanidine 2 mg capsule 2 mg PO TID PRN PRN muscle relaxant 01/19/20 [History Last Taken 08/09/21] albuterol sulfate 90 mcg/actuation aerosol inhaler 2 puff inhalation Q6H 08/28/20 [History Last Taken 08/27/20] magnesium oxide 400 mg (241.3 mg magnesium) tablet 400 mg PO DAILY supplement 08/28/20 [History Last Taken 09/16/21] sertraline 25 mg tablet 100 mg PO DAILY depression 08/28/20 [History Last Taken 09/16/21] ondansetron 4 mg disintegrating tablet 4 mg PO Q8H PRN nausea and vomiting #10 tabs 06/16/21 [Rx Last Taken Unknown] insulin glargine 100 unit/mL (3 mL) subcutaneous pen 28 unit SC QHS blood sugar 08/10/21 [History Last Taken 08/10/21] insulin lispro 100 unit/mL subcutaneous pen (Humalog KwikPen (U-100) Insulin) See Protocol subcut ACHS DM 08/10/21 [History Last Taken 09/15/21] acetaminophen 325 mg tablet 650 mg PO Q4H PRN pain/fever 09/14/21 [History Last Taken Unknown] acetaminophen 650 mg rectal suppository 650 mg NV Q4H PRN pain/fever 09/14/21 [History Last Taken Unknown] aluminum-magnesium hydroxide 225 mg-200 mg/5 mL oral suspension 30 ml PO Q4H PRN PRN Indigestion 09/14/21 [History Last Taken Unknown] aspirin 81 mg tablet,delayed release 81 mg PO DAILY blood thinner 09/14/21 [History Last Taken 09/16/21] atorvastatin 80 mg tablet 80 mg PO QHS cholesterol 09/14/21 [History Last Taken 09/15/21] bisacodyl 10 mg rectal suppository 10 mg NV DAILY PRN Constipation 09/14/21 [History Last Taken Unknown] calcitriol 0.25 mcg capsule 0.25 mcg PO DAILY supplement 09/14/21 [History Last Taken 09/16/21] dextrose 40 % oral gel (Glucose Gel) 10 g PO Q15M PRN Hypoglycemia 09/14/21 [History Last Taken Unknown] glucagon 1 mg injection kit 1 mg IM PRN PRN Hypoglycemia 09/14/21 [History Last Taken Unknown] guaifenesin 200 mg/5 mL oral liquid 200 mg PO Q4H PRN Cough 09/14/21 [History Last Taken Unknown] levothyroxine 200 mcg tablet 300 mcg PO DAILY thyroid 30 days #45 tabs 09/14/21 [Rx Last Taken 09/15/21] loratadine 10 mg capsule 10 mg PO DAILY allergies 09/14/21 [History Last Taken 09/16/21] losartan 50 mg tablet 50 mg PO DAILY bp 09/14/21 [History Last Taken 09/16/21] magnesium hydroxide 400 mg/5 mL oral suspension (Milk of Magnesia) 30 ml PO DAILY PRN Constipation 09/14/21 [History Last Taken 09/15/21] miconazole nitrate 2 % topical powder 1 applic topical TID Check with primary doctor 09/14/21 [History Last Taken Unknown] sodium phosphates 19 gram-7 gram/118 mL enema (Fleet Enema) 118 ml NV DAILY PRN Constipation 09/14/21 [History Last Taken Unknown] ticagrelor 90 mg tablet 90 mg PO BID blood thinner 09/14/21 [History Last Taken 09/16/21] vitamin B complex-vitamin C-folic acid 0.8 mg tablet (Renal Vitamin) 1 tab PO DAILY suppelemt 09/14/21 [History Last Taken 09/16/21] ibuprofen 400 mg tablet 400 mg PO Q8H PRN Pain 10/30/21 [History Last Taken Unknown] Allergy/AdvReac Type Severity Reaction Status Date / Time codeine phosphate Allergy Swelling Verified 10/30/21 10:39 [From Tylenol-Codeine #3] simvastatin [From Zocor] Allergy Other Verified 10/30/21 10:39 Family History Mother Diabetes Kidney disease CVA (cerebral vascular accident) Father Heart disease Mother Diabetes Surgical History History of cardiac catheterization History of heart artery stent History of right mastectomy S/P dialysis catheter insertion S/P right coronary artery (RCA) stent placement Social History household members: family Smoking Status: Heavy Smoker (>10/day) alcohol intake: never substance use type: does not use ROS <SHORTY Manning - Last Filed: 10/30/21 12:00> ROS ED ROS Narrative Constitutional: Negative for fever, chills, malaise. Eyes: Negative for visual change. ENT: Negative for sore throat, ear pain, rhinorrhea. CVS: Negative for palpitations, chest pain, syncope. Respiratory: Negative for shortness of breath, cough, orthopnea. GI: Negative for abdominal pain, nausea, vomiting. : Negative for dysuria, hematuria or frequency. Neuro: Negative for headache, motor/sensory dysfunction. Skin: Positive for wounds. Musc: Negative for joint pain, swelling, trauma. Heme: Negative for easy bruising, bleeding, lymphadenopathy. EXAM <SHORTY Manning - Last Filed: 10/30/21 12:00> Physical Exam Narrative Exam Narrative: CONST: Patient sitting in no acute distress. EYES: Normal inspection. ENT: Normal inspection. NECK: Normal inspection. RESP: No respiratory distress, CTAB. CVS: Regular rate and rhythm, no murmur, no gallop. ABD: Soft and nontender, no guarding or rebound, nondistended. SKIN: Wound on right buttock around 2x3 cm with yellow granulation tissue, left buttock wound is packed but appears larger, no surrounding erythema, no significant drainage. EXTREMITIES: Significant pitting edema of upper > lower extremities. NEURO: Oriented x4. PSYCH: Normal affect. Const Vital Signs: 10/30/21 09:56 10/30/21 09:58 10/30/21 10:09 Temperature 98.8 F 98.8 F Temperature Source Temporal Temporal Pulse Rate 79 79 75 Respiratory Rate 20 H 20 H 20 H Blood Pressure 129/71 H 129/71 H Blood Pressure Mean 90 90 Pulse Ox 93 93 93 Oxygen Delivery Method Room Air Room Air Room Air Oxygen Flow Rate (L/min) 10/30/21 10:56 10/30/21 11:00 10/30/21 11:56 Temperature 98 F 98 F Temperature Source Temporal Temporal Pulse Rate 74 73 Respiratory Rate 20 H 20 H Blood Pressure 151/65 H 97/65 Blood Pressure Mean 93 75 Pulse Ox 100 100 Oxygen Delivery Method Nasal Cannula Nasal Cannula Nasal Cannula Oxygen Flow Rate (L/min) 3 10/30/21 11:56 10/30/21 11:56 10/30/21 11:56 Temperature 98 F 98 F 98 F Temperature Source Temporal Temporal Temporal Pulse Rate 71 71 Respiratory Rate 20 H 20 H Blood Pressure 101/49 L 101/49 L Blood Pressure Mean 66 66 Pulse Ox 100 100 Oxygen Delivery Method Nasal Cannula Nasal Cannula Oxygen Flow Rate (L/min) 3 <Dr. Bertin Bradshaw DO - Last Filed: 10/30/21 12:22> Physical Exam Const Vital Signs: 10/30/21 09:56 10/30/21 09:58 10/30/21 10:09 Temperature 98.8 F 98.8 F Temperature Source Temporal Temporal Pulse Rate 79 79 75 Respiratory Rate 20 H 20 H 20 H Blood Pressure 129/71 H 129/71 H Blood Pressure Mean 90 90 Pulse Ox 93 93 93 Oxygen Delivery Method Room Air Room Air Room Air Oxygen Flow Rate (L/min) 10/30/21 10:56 10/30/21 11:00 10/30/21 11:56 Temperature 98 F 98 F Temperature Source Temporal Temporal Pulse Rate 74 73 Respiratory Rate 20 H 20 H Blood Pressure 151/65 H 97/65 Blood Pressure Mean 93 75 Pulse Ox 100 100 Oxygen Delivery Method Nasal Cannula Nasal Cannula Nasal Cannula Oxygen Flow Rate (L/min) 3 10/30/21 11:56 10/30/21 11:56 10/30/21 11:56 Temperature 98 F 98 F 98 F Temperature Source Temporal Temporal Temporal Pulse Rate 71 71 Respiratory Rate 20 H 20 H Blood Pressure 101/49 L 101/49 L Blood Pressure Mean 66 66 Pulse Ox 100 100 Oxygen Delivery Method Nasal Cannula Nasal Cannula Oxygen Flow Rate (L/min) 3 [facility] <SHORTY Manning - Last Filed: 10/30/21 12:00> [facility] Narrative Medical decision making narrative: PA: Patient has bilateral buttock wounds that are infected. The right is packed and appears deeper. There is no surrounding erythema. Labs show normal white count and lactate, chronic anemia and hyponatremia is at baseline. Patient got blood from IV access but it was arterial and we were unable to get further peripheral access. She cannot have a PICC line due to risk with dialysis. General surgery placed a central line. Blood cultures drawn and IV vancomycin and Zosyn was started. CT will be obtained but general surgery feels these are more superficial and can likely be divided at bedside. Case was discussed with the hospitalist for admission. I have personally performed a face to face assessment of the patient and have reviewed the CHIN Note. I performed a substantive portion of the visit including all aspects of the following. My oquendo findings include: History is patient presents to the emergency department via EMS from extended care facility after evaluation by general surgery for wounds to her buttocks. Patient essentially bedbound and has wounds on her buttocks that have been present for over a month. Patient had been on antibiotics. She was seen by general surgery today and was felt she would require admission and possible OR debridement and intervention. Patient denies any fevers. She is a dialysis patient. Patient does complain of some mild discomfort to the area. Exam is [HEENT-PERRLA, EOMI. Cranial nerves II through XII grossly intact. TMs clear. Mucous membranes moist. No adenopathy. Cardiovascular-regular rate and rhythm without murmur or ectopy Lungs-clear to auscultation, chest wall stable without crepitus or subcu emphysema Abdomen-normoactive bowel sounds, soft, nontender, no rebound or rigidity, no peritoneal signs. Patient morbidly obese. Evaluation of her buttocks does reveal wounds on both buttocks. Left wound is packed and some yellowish drainage noted from that with an opening of approximately 3 cm in length. Extremities-intact ?4, normal range of motion, normal pulses, atraumatic. Patient does have edema of both lower and upper extremities.] Medical Decison Making [Case was discussed with general surgeon who referred patient to the emergency department Dr. Veronique Berry who wanted patient admitted to medicine for IV antibiotics and given that she is on Brilinta may wait till tomorrow for possible surgical intervention. IV and labs will be attempted and I was asked to start patient on Zosyn and vancomycin. Case will be discussed with hospitalist evaluate for admission. Diagnosis will be infected wounds bilateral buttocks. Patient seen in conjunction with physician assistant purchasing manager and independently interviewed and evaluated by myself.] Other additions or changes: [None] Lab Data Labs: Laboratory Results - last 24 hr 10/30/21 10/30/21 10/30/21 10:20 10:20 10:20 WBC 9.8 RBC 2.42 L Hgb 8.2 L Hct 25.3 L MCV 104.5 H MCH 33.9 H MCHC 32.4 RDW Std Deviation 64.9 H RDW Coeff of Angela 16.8 H Plt Count 134 L MPV 10.3 Immature Gran % (Auto) 0.500 Neut % (Auto) 82.7 H Lymph % (Auto) 4.2 L [place] % (Auto) 10.7 H Eos % (Auto) 1.7 Baso % (Auto) 0.2 Absolute Neuts (auto) 8.1 H Absolute Lymphs (auto) 0.41 L Nucleated RBC % 0 Differential Comment SCANNED PT 16.6 H INR 1.4 APTT 32.4 Sodium 129 L Potassium 3.9 Chloride 93 L Carbon Dioxide 31.0 Anion Gap 5 BUN 32 H Creatinine 3.26 H Estim Creat Clear Calc 16.05 Est GFR (MDRD) Af Amer 19 L Est GFR (MDRD) Non-Af 15 L BUN/Creatinine Ratio 9.8 L Glucose 90 Lactic Acid Calcium 8.7 Total Bilirubin 0.40 AST 19 ALT 25 Alkaline Phosphatase 173 H Total Protein 7.1 Albumin 2.9 L Globulin 4.2 Albumin/Globulin Ratio 0.7 L 10/30/21 10:20 WBC RBC Hgb Hct MCV MCH MCHC RDW Std Deviation RDW Coeff of Angela Plt Count MPV Immature Gran % (Auto) Neut % (Auto) Lymph % (Auto) [place] % (Auto) Eos % (Auto) Baso % (Auto) Absolute Neuts (auto) Absolute Lymphs (auto) Nucleated RBC % Differential Comment PT INR APTT Sodium Potassium Chloride Carbon Dioxide Anion Gap BUN Creatinine Estim Creat Clear Calc Est GFR (MDRD) Af Amer Est GFR (MDRD) Non-Af BUN/Creatinine Ratio Glucose Lactic Acid 0.7 Calcium Total Bilirubin AST ALT Alkaline Phosphatase Total Protein Albumin Globulin Albumin/Globulin Ratio <Dr. Bertin Bradshaw, DO - Last Filed: 10/30/21 12:22> [facility] MDM Narrative Medical decision making narrative: PA: Patient has bilateral buttock wounds that are infected. The right is packed and appears deeper. There is no surrounding erythema. Labs show normal white count and lactate, chronic anemia and hyponatremia is at baseline. I have personally performed a face to face assessment of the patient and have reviewed the CHIN Note. I performed a substantive portion of the visit including all aspects of the following. My oquendo findings include: History is patient presents to the emergency department via EMS from [facility] care facility after evaluation by general surgery for wounds to her buttocks. Patient essentially bedbound and has wounds on her buttocks that have been present for over a month. Patient had been on antibiotics. She was seen by general surgery today and was felt she would require admission and possible OR debridement and intervention. Patient denies any fevers. She is a dialysis patient. Patient does complain of some mild discomfort to the area. Exam is [HESKYLER-PERRLA, EOMI. Cranial nerves II through XII grossly intact. TMs clear. Mucous membranes moist. No adenopathy. Cardiovascular-regular rate and rhythm without murmur or ectopy Lungs-clear to auscultation, chest wall stable without crepitus or subcu emphysema Abdomen-normoactive bowel sounds, soft, nontender, no rebound or rigidity, no peritoneal signs. Patient morbidly obese. Evaluation of her buttocks does reveal wounds on both buttocks. Left wound is packed and some yellowish drainage noted from that with an opening of approximately 3 cm in length. Extremities-intact ?4, normal range of motion, normal pulses, atraumatic. Patient does have edema of both lower and upper extremities.] Medical Decison Making [Case was discussed with general surgeon who referred patient to the emergency department Dr. Veronique Berry who wanted patient admitted to medicine for IV antibiotics and given that she is on Brilinta may wait till tomorrow for possible surgical intervention. IV and labs will be attempted and I was asked to start patient on Zosyn and vancomycin. Case will be discussed with hospitalist evaluate for admission. Diagnosis will be infected wounds bilateral buttocks. Patient seen in conjunction with physician assistant purchasing manager and independently interviewed and evaluated by myself.] Other additions or changes: [ patient was seen by the surgeon in the emergency department and had a central line placed in the right IJ region. We were asked obtain a CT scan of the abdomen pelvis to evaluate further the abscess depth and extension. Patient also had a debridement performed in the emergency department by the surgeon. Case was discussed with hospitalist will evaluate patient for admission.] Lab Data Labs: Laboratory Results - last 24 hr 10/30/21 10/30/21 10/30/21 10:20 10:20 10:20 WBC 9.8 RBC 2.42 L Hgb 8.2 L Hct 25.3 L MCV 104.5 H MCH 33.9 H MCHC 32.4 RDW Std Deviation 64.9 H RDW Coeff of Angela 16.8 H Plt Count 134 L MPV 10.3 Immature Gran % (Auto) 0.500 Neut % (Auto) 82.7 H Lymph % (Auto) 4.2 L [place] % (Auto) 10.7 H Eos % (Auto) 1.7 Baso % (Auto) 0.2 Absolute Neuts (auto) 8.1 H Absolute Lymphs (auto) 0.41 L Nucleated RBC % 0 Differential Comment SCANNED PT 16.6 H INR 1.4 APTT 32.4 Sodium 129 L Potassium 3.9 Chloride 93 L Carbon Dioxide 31.0 Anion Gap 5 BUN 32 H Creatinine 3.26 H Estim Creat Clear Calc 16.05 Est GFR (MDRD) Af Amer 19 L Est GFR (MDRD) Non-Af 15 L BUN/Creatinine Ratio 9.8 L Glucose 90 Lactic Acid Calcium 8.7 Total Bilirubin 0.40 AST 19 ALT 25 Alkaline Phosphatase 173 H Total Protein 7.1 Albumin 2.9 L Globulin 4.2 Albumin/Globulin Ratio 0.7 L 10/30/21 10:20 WBC RBC Hgb Hct MCV MCH MCHC RDW Std Deviation RDW Coeff of Angela Plt Count MPV Immature Gran % (Auto) Neut % (Auto) Lymph % (Auto) [place] % (Auto) Eos % (Auto) Baso % (Auto) Absolute Neuts (auto) Absolute Lymphs (auto) Nucleated RBC % Differential Comment PT INR APTT Sodium Potassium Chloride Carbon Dioxide Anion Gap BUN Creatinine Estim Creat Clear Calc Est GFR (MDRD) Af Amer Est GFR (MDRD) Non-Af BUN/Creatinine Ratio Glucose Lactic Acid 0.7 Calcium Total Bilirubin AST ALT Alkaline Phosphatase Total Protein Albumin Globulin Albumin/Globulin Ratio Radiography Diagnostic Testin view chest x-ray obtained after central line placement was interpreted by myself as tip of the triple-lumen catheter in the superior vena cava in good position without evidence of pneumothorax. Official report from radiology pending. Discharge Plan Triage Chief Complaint: Wound ED Midlevel Provider: Urvashi Gaona ED Provider: Bertin Bradshaw Dx/Rx/DC Orders Primary Care Provider: Ambrosio Barbour
[2021-10-30] MEDS: HYDROmorphone 1 MG/ML Syringe IM (10:32)
[2021-10-30] MEDS: Ondansetron ODT 4 MG Tablet PO (10:32)
[2021-10-30 10:44] LABS: Absolute Lymphocyte Count 0.41 X10^3/uL (0.83-4.51); Absolute Neutrophil Count 8.1 X10^3/uL (2.0-7.7); Basophil# 0.02 X10^3/uL; Basophil% 0.2 % (0-1); Eosinophil# 0.17 X10^3/uL; Eosinophils% 1.7 % (0-5); Hematocrit 25.3 % (37-47); Hemoglobin 8.2 g/dL (12.0-15.0); Lymphocyte # 0.41 X10^3/ul (0.83-4.51); Lymphocyte % 4.2 % (19-41); Mean Corp Hgb Conc 32.4 g/dL (32-36); Mean Corpuscular Hgb 33.9 pg (27.0-32.0); Mean Corpuscular Volume 104.5 fL (81-99); Mean Platelet Vol. 10.3 fl (6.2-12.0); Monocyte# 1.05 X10^3/uL; Monocyte% 10.7 % (0-10); NRBC Flagged by Analyzer 0 % (0-5); Neutrophil # 8.08 X10^3/uL (2.7-7.7); Neutrophil % 82.7 % (47-70); POSITIVE DIFFERENTIAL YES; Platelet Count 134 K/mm3 (150-450); RBC Distribution Width CV 16.8 % (11.6-14.6); RBC Distribution Width SD 64.9 fl (35.1-43.9); Red Blood Count 2.42 M/mm3 (4.2-5.4); White Blood Count 9.8 K/mm3 (4.4-11.0)
[2021-10-30 10:54] LABS: Partial Thromboplast Time 32.4 Seconds (24.1-36.2)
[2021-10-30 10:58] LABS: ALB/GLOB Ratio 0.7 RATIO (0.9-2.4); AST(SGOT) 19 U/L (15-37); Alanine Aminotransfer ALT/SGPT 25 U/L (13-56); Albumin, Serum 2.9 g/dL (3.2-5.0); Alkaline Phosphatase 173 U/L (45-117); Anion Gap 5 (5-15); BUN 32 mg/dL (7-18); BUN/Creat Ratio 9.8 RATIO (10-20); Calcium,Total 8.7 mg/dL (8.5-10.1); Chloride 93 mmol/L (98-107); Creatinine, Serum 3.26 mg/dL (0.55-1.02); EST Glomerular Filtration Rate 15 mL/min (>60); Est Glom Filt Rate - Afr Amer 19 mL/min (>60); Estimated Creatinine Clearance 16.05 ml/min; Globulin 4.2 g/dL (2.2-4.2); Glucose 90 mg/dL (74-106); Potassium 3.9 mmol/L (3.5-5.1); Protein, Total 7.1 g/dL (6.4-8.2); Sodium Level 129 mmol/L (136-145)
[2021-10-30 11:03] LABS: International Normalized Ratio 1.4; Prothrombin Time (Protime)PT. 16.6 SECONDS (11.7-14.9)
[2021-10-30 11:05] LABS: Lactic Acid 0.7 mmol/L (0.4-1.9)
[2021-10-30 11:08] LABS: Differential Comment SCANNED; Differential Indicated SCAN CRITERIA MET
--- NOTE | 2021-10-30 11:13 | CT_ITS ---
STUDY: CT ABDOMEN AND PELVIS WITH CONTRAST REASON FOR EXAM: Female, 61 years old. Buttock wounds -- pt being admitted, will dialyze. Prior right mastectomy. Lung metastasis. RADIATION DOSAGE (If Supplied By Facility): CTDIvol = ( 37.14 ) mGy, DLP = ( 2230.69 ) mGycm TECHNIQUE: Transaxial images were obtained from the dome of the diaphragm to the symphysis pubis without oral contrast. IV 100mL Isovue-300 was administered. Sagittal and coronal images were reconstructed. Individualized dose optimization techniques were used for this CT. COMPARISON: Comparison is made with prior study dated 06/15/2021. FINDINGS: Since prior study, there has been progressive increase in the subcutaneous edema extending into the left breast with diffuse left breast skin thickening. The patient is status post right mastectomy with right axillary node dissection. Mild increase in linear markings at the lung bases suggestive of atelectasis likely worse on the right side. Coronary artery calcification. A dual-chamber pacemaker is seen. There is decreased attenuation of the liver consistent with steatosis. Small amount of perihepatic fluid. There are multiple small gallstones. Normal spleen. Normal pancreas. Normal bilateral adrenal glands. Normal right kidney. Normal left kidney. A left retroaortic renal vein is seen. Normal visualized stomach. Normal small intestine. Normal colon. The appendix is visualized and appears normal. There is diffuse atherosclerotic calcification of the abdominal aorta and its major visceral branches, without a demonstrated aneurysm. Normal inferior vena cava. Normal retroperitoneum. Normal urinary bladder. Free fluid is seen in the pelvis. There is a small umbilical hernia containing fat. Diastases of the rectus sheath. The wall of the hernia measures 3.7 cm. Is evidence of a 6.7 cm x 1.7 cm lipoma in the left lateral abdominal wall musculature. Normal osseous structures. CT/Abdomen/Pelvis WITH Contrast IMPRESSION: Diffuse subcutaneous edema with skin thickening of the abdominal wall as well as the left breast. The patient is status post right mastectomy. Fatty infiltration of the liver. Small amount of perihepatic fluid. Fluid is seen in the pelvis. Multiple small gallstones. Electronically Signed: Georges Lucas MD at 13:26 EDT ,
--- NOTE | 2021-10-30 11:26 | RAD_ITS ---
STUDY: X-RAY CHEST REASON FOR EXAM: Female, 61 years old. Line placement TECHNIQUE: Single AP portable view of the chest. COMPARISON: Comparison is made with prior study dated 08/10/2021. FINDINGS: There is a left-sided double-lumen catheter with the tip in the right atrium. A right-sided internal jugular venous catheter has been placed with the tip at the junction of the superior vena cava and right atrium. Surgical clips are seen in the right axillary region. Linear density in the right upper lobe suggestive of a linear atelectasis and/or scarring. There is no demonstrated pleural abnormality. Normal size heart. Normal mediastinum and [place]. Normal visualized pulmonary arteries. Normal visualized aortic arch and descending thoracic aorta. Normal visualized thoracic spine. Normal visualized ribs, clavicles, and shoulders. There is no demonstrated abnormality of the visualized soft tissue structures of the upper abdomen. RAD/Chest 1 View (Portable) IMPRESSION: A right-sided central line is seen with the tip at the junction of the superior vena cava and right atrium. A left-sided double-lumen catheter is seen with the tip in the right atrium. Increased linear marking in the right mid lung suggestive of atelectasis and/or scarring. Electronically Signed: Georges Lucas MD at 12:47 EDT ,
--- NOTE | 2021-10-30 11:42 | NURSING ---
DR WAITE FOR DR ALBA
--- NOTE | 2021-10-30 11:49 | NURSING ---
MED SURG TERELETSKY BUTTOCKS WOUNDS
--- NOTE | 2021-10-30 12:02 | ED.RN ---
DR HINES ASSISTED BY THIS RN MICROFILM EQUIPMENT INSPECTOR AND MEDIC DEBRIDED AREA TO BUTTOCKS. AREA PACKED PER PHYSICIAN. PT TOLERATED WELL
--- NOTE | 2021-10-30 12:06 | HP.PCM_ITS ---
History and Physical Date of Admission: 10/30/21 Date of Service:? 10/30/21 MR#:[id number] Acct:[id number] Name:FÉLIX GONZALEZ Rep #:[id number] :1960 ? Provider:Dr. Veronique Berry MD Age/Sex:?61/F Location: [facility] Status: Signed Intake Vital Signs ? 09/17/2211:22 Height 5 ft 4 in Intake Visit Reasons:?BILATERAL BUTTOCKS BOIL Chief Complaint: chest pain Allergies codeine phosphate [From Tylenol-Codeine #3] Allergy (Verified 09/16/21 12:41) Swellingsimvastatin [From Zocor] Allergy (Verified 09/16/21 12:41) Other [facility] Medical History?(Updated 10/30/21 @ 10:[address] Veronique Berry MD) Acute on chronic diastolic CHF (congestive heart failure) Back pain Breast cancer CAD (coronary artery disease) Cancer Cardiology follow-up encounter Chronic kidney disease with end stage renal failure on dialysis Chronic pain Congestive heart failure (CHF) Depression Diabetes DM2 (diabetes mellitus, type 2) DVT (deep venous thrombosis) ESRD (end stage renal disease) ESRD on hemodialysis History of echocardiogram History of pain when walking History of renal dialysis History of renal disease HTN (hypertension) Hypertension Hypertension Hyponatremia Hypothyroidism Hypothyroidism Injury of head and neck Insulin dependent diabetes mellitus Kidney disease Non-compliance with renal dialysis Problem with dialysis access Shortness of breath on exertion Smoker Thyroid disease Tobacco abuse Type 2 diabetes mellitus VTE (venous thromboembolism) Wears glasses Surgical History? History of cardiac catheterization History of heart artery stent History of right mastectomy S/P dialysis catheter insertion S/P right coronary artery (RCA) stent placement Family History? Mother Diabetes Kidney disease CVA (cerebral vascular accident)Father Heart diseaseMother Diabetes Social History? household members:? family Smoking Status:? Heavy Smoker (>10/day) alcohol intake:? never substance use type:? does not use HPI HPI HPI: FÉLIX PARKINSON, is a 61 F who presents to the office today for lateral buttock boils from [facility].? Patient had been seen by wound care [facility] and it stated that bilateral buttock lesions initially noticed on 10/10/2021 at some point did undergo an I&D.? Due to patient's body habitus and declining functional status unable to safely move patient to her bed as there are no side rails.? Patient presented on a cart to the office as transportation was from [facility].? Patient states that the pain in her buttocks about a 8/10.? Patient also accompanied by her sister states that they are trying to roll her from side to side to offload pressure but it seems like she may just mostly go back to that side or go over the pillow. ROS General General: Yes weight change (increase due to retenting fluids) HEENT HEENT: No difficulty swallowing Skin Additional Details: buttock wounds bilateral- draining Cardio Cardiovascular: No chest pain Resp Respiratory: No cough Gastro Gastrointestinal: No abdominal pain Exam Const General: cooperative, comfortable and no acute distress Nutritional Appearance: obese and edeamtous HENMT Head: atraumatic Resp Effort & Inspection: normal respiratory effort Cardio Rate: regular rate GI Inspection: obesity Palpation: soft, no guarding and nontender Other: Limited exam as patient was rolled on the cart as it is unsafe to have patient on her table due to no side rails and patient body habitus.? Right buttock wound revealed necrotic tissue about 3 cm x 2 cm with red/purulent drainage with gentle pressure after dressing was removed.? (Did not remove dressing from left side as patient needed to go to the ER and will need surgical debridement and IV antibiotics.) Skin Wounds: wounds noted (Necrotic wound - R buttock w purulent drainage, L buttock wound dressed) Neuro General: patient oriented x3 Psych Appearance: grossly normal COVID (Procedure Consent) Procedure Criteria Procedure Criteria: Yes Elective The surgeon/proceduralist and patient have discussed in detail the risk of exposure to and/or potential harm posed by the COVID-19 virus with having a surgery/procedure at this time versus the risk of? delaying the surgery/procedure. It is not possible to know either the risk of delaying the surgery or procedure or chance of getting an infection with perfect accuracy, but a joint decision was made between the patient and the surgeon/proceduralist ?to proceed at this time with the scheduled surgery/procedure as indicated on the consent form. Assessment and Plan Assessment and Plan (1) Cutaneous abscess of buttock: ?Status:?Acute ?Comment: right w necrotic tissue and likely also left (2) Diabetes: ?Status:?Acute Plan Patient was sent to the ER for admission, IV antibiotics patient will need surgical incision and drainage due to necrotic tissue on the right and will also better evaluate the left area at that time--patient is currently on Brilinta we will not plan to do any major debridement initially patient may have to go back for additional debridement.? Discussed the plan with the patient and her sister.? Also called the ER to update them that the patient was coming to them. Patient is on Brilinta due to previous cardiac stent about 6 months ago in [place]. Veronique Berry M.D. Pager: [phone] [facility] [address] [place] [address], [address] [place] [address] Office: [phone] Coding Level of Care Code Off vis,est,level 5 Diagnoses Cutaneous abscess of buttock? L02.31 Diabetes? E11.9 10/30/21 1012 <Electronically signed by Veronique Berry MD> Date Veronique Berry MD
--- NOTE | 2021-10-30 12:09 | OP.PCM_ITS ---
Problems Associated Problem List Diagnoses (1) Cutaneous abscess of buttock: (2) ESRD (end stage renal disease): Report of Operation Date of Procedure: 10/30/21 Pre-Operative Diagnosis: Diabetic decubitus ulcers bilaterally on buttocks Post-Operative Diagnosis: Same Surgery/Procedure Performed:: Incision and drainage/debridement of bilateral buttock ulcers/abscess, insertion of right internal jugular triple-lumen catheter. Surgeon: Veronique Berry Type of Anesthesia: Local Specimen's removed: none Estimated Blood Loss (mL): 15 cc Description of Procedure: Procedure: Right IJ triple-lumen catheter placement A time-out was completed to verify correct patient, indication, medication allergies, procedure, informed consent signed, and equipment needed. The patient was placed in the supine position for a central line placement to the right IJ vein. The patients right neck was prepped using chlorhexidine and a full body sterile drape was applied. 1% lidocaine was used to anesthetize the surrounding skin. A triple-lumen catheter introduced into the internal jugular vein using the Seldinger technique with the assistance of ultrasound. The site was dilated prior to inserting the catheter. The catheter was threaded smoothly over the guidewire, the guidewire was removed easily, nonpulsatile blood returned. All ports were aspirated of air and flushed with sterile saline. The catheter was sutured in place and covered with an occlusive dressing impregnated with chlo rhexidine. Chest x-ray ordered?--catheter is in place no signs of pneumothorax Procedure: Incision and drainage/debridement of bilateral buttock ulcer/abscess Again timeout was completed verifying correct patient, procedure, site, positioning, special, prior to beginning procedure. Betadine was used over the 2 areas of ulcer. The right one measured 4 cm x 2 cm and did extend laterally additional 3 cm with a depth of 1 cm, the left 1 was more medial and was 3 cm x 1 cm with a depth of 1 cm. Then the necrotic tissue over the top of these 2 areas was sharply debrided after using 1% lidocaine with epinephrine. The underlying tissue did appear healthy. No deep debridement was done. Wounds were irrigated with saline and packed with Betadine soaked gauze. Patient tolerated procedure well. You also plan to get a CT of the pelvis to further evaluate these areas. Complications none
[2021-10-30] MEDS: Ondansetron 4 MG/2 ML Vial IV (12:20)
--- NOTE | 2021-10-30 12:35 | ED.RN ---
PT CENTRAL LINE DRESSING CHANGED. MODERATE AMOUNT OF BLEEDING NOTED. AREA CLEANED AND SMALL ABSORBANT 2X2 APPLIED UNDERNEATH. SMALL 1 POUND SANDBAG APPLIED TO AREA PER DR QUINTANA
--- NOTE | 2021-10-30 12:39 | ED.RN ---
UPDATED DR HINES ON ACTIONS TAKEN FOR BLEEDING OF CENTRAL LINE. AGREES WITH PLAN
--- NOTE | 2021-10-30 14:03 | PCM.CONS.R ---
Assessment & Plan Assessment/Plan (1) ESRD (end stage renal disease): (2) Cutaneous abscess of buttock: (3) Anemia: QUALIFIERS: Anemia type: due to chronic kidney disease Chronic kidney disease stage: on chronic dialysis Qualified Code(s): N18.6 - End stage renal disease; D63.1 - Anemia in chronic kidney disease; Z99.2 - Dependence on renal dialysis (4) Anasarca: PLAN: Plan Patient was admitted for further evaluation and treatment of buttock wounds after she underwent incision and drainage today. She is on IV antibiotics. Patient has a history of end-stage renal disease and is currently scheduled to dialyze at [facility] on a Wednesday schedule. Patient has a history of noncompliance with dialysis and tends to skip dialysis as well as shorten treatments. This week she shortened dialysis yesterday and missed her dialysis session altogether on Wednesday. Patient is significantly fluid overloaded. She is in agreement for dialysis today, we will dialyze her sequential treatment and attempt to remove 2 to 3 L as patient/blood pressure tolerates. We will plan for dialysis again tomorrow over 4 hours and attempt 3 to 4 L as patient/blood pressures tolerate. -History of hypertension: Recommend holding blood pressure meds morning of dialysis. Patient's blood pressure is low. We will hold losartan for now. She is on carvedilol - buttock wounds s/p I&D. On antibiotics. BC pending. CT A/P reviewed and showing diffuse edema -History of anemia of chronic disease: We will monitor hemoglobin trends. Patient receives KANDI at the [facility]. -Hyponatremia likely secondary to fluid overload/ESRD -Thank you for allowing us to participate in the care of Ms. Ordonez, further orders forthcoming as hospitalization evolves. HPI Consult Data Date of Consult: 10/30/21 HPI Narrative HPI Narrative: FÉLIX ORDONEZ, is a 61 F with past medical history significant for ESRD who is currently residing at [facility] and is receiving in-house dialysis on a Wednesday schedule who was admitted to the hospital today after she underwent incision and drainage of necrotic tissue to buttock area. Patient is alert and oriented. She is complaining of some nausea. States she has been having emesis. Patient reports her last dialysis was yesterday at the [facility]. [facility] Medical History (Updated 10/30/21 @ 14:10 by MARCELO Lugo) Acute on chronic diastolic CHF (congestive heart failure) Back pain Breast cancer CAD (coronary artery disease) Cancer Cardiology follow-up encounter Chronic kidney disease with end stage renal failure on dialysis Chronic pain Congestive heart failure (CHF) Depression Diabetes DM2 (diabetes mellitus, type 2) DVT (deep venous thrombosis) ESRD (end stage renal disease) ESRD on hemodialysis History of echocardiogram History of pain when walking History of renal dialysis History of renal disease HTN (hypertension) Hypertension Hypertension Hyponatremia Hypothyroidism Hypothyroidism Injury of head and neck Insulin dependent diabetes mellitus Kidney disease Non-compliance with renal dialysis Problem with dialysis access Shortness of breath on exertion Smoker Thyroid disease Tobacco abuse Type 2 diabetes mellitus VTE (venous thromboembolism) Wears glasses Home Medications promethazine 25 mg tablet 25 mg PO Q8H PRN PRN Nausea 05/14/13 [History Last Taken Unknown] carvedilol 6.25 mg tablet 6.25 mg PO DAILY HEART 08/13/19 [History Last Taken 09/16/21] bupropion HCl 300 mg 24 hr tablet, extended release 300 mg PO DAILY DEPRESSION 12/21/19 [History Last Taken 09/16/21] nitroglycerin 0.4 mg sublingual tablet 0.4 mg sublingual Q5M PRN CHEST PAIN 12/21/19 [History Last Taken Unknown] gabapentin 300 mg capsule 100 mg PO DAILY neuropathy 01/19/20 [History Last Taken 09/16/21] tizanidine 2 mg capsule 2 mg PO TID PRN PRN muscle relaxant 01/19/20 [History Last Taken 08/09/21] albuterol sulfate 90 mcg/actuation aerosol inhaler 2 puff inhalation Q6H 08/28/20 [History Last Taken 08/27/20] magnesium oxide 400 mg (241.3 mg magnesium) tablet 400 mg PO DAILY supplement 08/28/20 [History Last Taken 09/16/21] sertraline 25 mg tablet 100 mg PO DAILY depression 08/28/20 [History Last Taken 09/16/21] ondansetron 4 mg disintegrating tablet 4 mg PO Q8H PRN nausea and vomiting #10 tabs 06/16/21 [Rx Last Taken Unknown] insulin glargine 100 unit/mL (3 mL) subcutaneous pen 28 unit SC QHS blood sugar 08/10/21 [History Last Taken 08/10/21] insulin lispro 100 unit/mL subcutaneous pen (Humalog KwikPen (U-100) Insulin) See Protocol subcut ACHS DM 08/10/21 [History Last Taken 09/15/21] acetaminophen 325 mg tablet 650 mg PO Q4H PRN pain/fever 09/14/21 [History Last Taken Unknown] acetaminophen 650 mg rectal suppository 650 mg [place] Q4H PRN pain/fever 09/14/21 [History Last Taken Unknown] aluminum-magnesium hydroxide 225 mg-200 mg/5 mL oral suspension 30 ml PO Q4H PRN PRN Indigestion 09/14/21 [History Last Taken Unknown] aspirin 81 mg tablet,delayed release 81 mg PO DAILY blood thinner 09/14/21 [History Last Taken 09/16/21] atorvastatin 80 mg tablet 80 mg PO QHS cholesterol 09/14/21 [History Last Taken 09/15/21] bisacodyl 10 mg rectal suppository 10 mg [place] DAILY PRN Constipation 09/14/21 [History Last Taken Unknown] calcitriol 0.25 mcg capsule 0.25 mcg PO DAILY supplement 09/14/21 [History Last Taken 09/16/21] dextrose 40 % oral gel (Glucose Gel) 10 g PO Q15M PRN Hypoglycemia 09/14/21 [History Last Taken Unknown] glucagon 1 mg injection kit 1 mg IM PRN PRN Hypoglycemia 09/14/21 [History Last Taken Unknown] guaifenesin 200 mg/5 mL oral liquid 200 mg PO Q4H PRN Cough 09/14/21 [History Last Taken Unknown] levothyroxine 200 mcg tablet 300 mcg PO DAILY thyroid 30 days #45 tabs 09/14/21 [Rx Last Taken 09/15/21] loratadine 10 mg capsule 10 mg PO DAILY allergies 09/14/21 [History Last Taken 09/16/21] losartan 50 mg tablet 50 mg PO DAILY bp 09/14/21 [History Last Taken 09/16/21] magnesium hydroxide 400 mg/5 mL oral suspension (Milk of Magnesia) 30 ml PO DAILY PRN Constipation 09/14/21 [History Last Taken 09/15/21] miconazole nitrate 2 % topical powder 1 applic topical TID Check with primary doctor 09/14/21 [History Last Taken Unknown] sodium phosphates 19 gram-7 gram/118 mL enema (Fleet Enema) 118 ml [place] DAILY PRN Constipation 09/14/21 [History Last Taken Unknown] ticagrelor 90 mg tablet 90 mg PO BID blood thinner 09/14/21 [History Last Taken 09/16/21] vitamin B complex-vitamin C-folic acid 0.8 mg tablet (Renal Vitamin) 1 tab PO DAILY suppelemt 09/14/21 [History Last Taken 09/16/21] ibuprofen 400 mg tablet 400 mg PO Q8H PRN Pain 10/30/21 [History Last Taken Unknown] Allergy/AdvReac Type Severity Reaction Status Date / Time codeine phosphate Allergy Swelling Verified 10/30/21 10:39 [From Tylenol-Codeine #3] simvastatin [From Zocor] Allergy Other Verified 10/30/21 10:39 Family History Mother Diabetes Kidney disease CVA (cerebral vascular accident) Father Heart disease Mother Diabetes Surgical History History of cardiac catheterization History of heart artery stent History of right mastectomy S/P dialysis catheter insertion S/P right coronary artery (RCA) stent placement Social History household members: family Smoking Status: Heavy Smoker (>10/day) alcohol intake: never substance use type: does not use ROS ROS Narrative As in HPI and past medical history Physical Exam Narrative Const: Alert and oriented x3. In no apparent distress HEENT: Head is normocephalic, atraumatic, pupils equal round reactive to light, and accommodation. Or mucosa moist Respiratory: Lung sounds clear anteriorly diminished breath sounds posteriorly, scattered rhonchi Cardio: S1, S2, RRR GI: Abdomen soft, nontender, positive bowel sounds Extremities: Pitting edema noted to bilateral arms and legs. Left upper arm AV fistula positive bruit noted, faint thrill Lab / Micro Data Result Diagrams: 10/30/21 10:20 10/30/21 10:20 Labs: Laboratory Results - last 24 hr 10/30/21 10:20: WBC 9.8, RBC 2.42 L, Hgb 8.2 L, Hct 25.3 L, MCV 104.5 H, MCH 33.9 H, MCHC 32.4, RDW Std Deviation 64.9 H, RDW Coeff of Angela 16.8 H, Plt Count 134 L, MPV 10.3, Immature Gran % (Auto) 0.500, Neut % (Auto) 82.7 H, Lymph % (Auto) 4.2 L, Harding % (Auto) 10.7 H, Eos % (Auto) 1.7, Baso % (Auto) 0.2, Absolute Neuts (auto) 8.1 H, Absolute Lymphs (auto) 0.41 L, Nucleated RBC % 0, Differential Comment SCANNED 10/30/21 10:20: PT 16.6 H, INR 1.4, APTT 32.4 10/30/21 10:20: Sodium 129 L, Potassium 3.9, Chloride 93 L, Carbon Dioxide 31.0, Anion Gap 5, BUN 32 H, Creatinine 3.26 H, Estim Creat Clear Calc 16.05, Est GFR (MDRD) Af Amer 19 L, Est GFR (MDRD) Non-Af 15 L, BUN/Creatinine Ratio 9.8 L, Glucose 90, Calcium 8.7, Total Bilirubin 0.40, AST 19, ALT 25, Alkaline Phosphatase 173 H, Total Protein 7.1, Albumin 2.9 L, Globulin 4.2, Albumin/Globulin Ratio 0.7 L 10/30/21 10:20: Lactic Acid 0.7 Radiology Impression Abdomen/Pelvis CT 10/30/21 11:13 IMPRESSION: Diffuse subcutaneous edema with skin thickening of the abdominal wall as well as the left breast. The patient is status post right mastectomy. Fatty infiltration of the liver. Small amount of perihepatic fluid. Fluid is seen in the pelvis. Multiple small gallstones. Electronically Signed: Georges Lucas MD at 13:26 EDT , Chest X-Ray 10/30/21 11:26 IMPRESSION: A right-sided central line is seen with the tip at the junction of the superior vena cava and right atrium. A left-sided double-lumen catheter is seen with the tip in the right atrium. Increased linear marking in the right mid lung suggestive of atelectasis and/or scarring. Electronically Signed: Georges Lucas MD at 12:47 EDT ,
--- NOTE | 2021-10-30 14:19 | PCM.HP.STD ---
Documented by User: Lorraine Rawls NP, MATRIX BATH ATTENDANT-C 10/30/21 14:40 HPI - General General Date of Admission: 10/30/21 Date of Service: 10/30/21 Chief Complaint: Buttock wounds. HPI Narrative FÉLIX PARKINSON, is a 61 F who presents to the emergency room from surgery office due to bilateral buttock lesions. Patient was referred for admission for IV antibiotics and I&D. Patient states she has had the buttock wounds for approximately 2 months. She states she was on oral antibiotics 1 week ago without improvement. She is unaware of previous attempt at abscess drainage. She denies fever, chills. She resides at [facility] and is not very mobile. She denies any other associated symptoms or complaints. Denies shortness of breath. Patient has a history of noncompliance with dialysis and missed Wednesday session and shortened her Wednesday session. She has a past medical history of chronic heart failure with preserved ejection fraction, CAD with history of PCI, type 2 diabetes mellitus, end-stage renal disease on hemodialysis, hypothyroidism, depression, anxiety, anemia of chronic disease, obesity. [facility]LY [facility] Medical History (Updated 10/30/21 @ 14:10 by Keesha Donald NP-C) Acute on chronic diastolic CHF (congestive heart failure) Back pain Breast cancer CAD (coronary artery disease) Cancer Cardiology follow-up encounter Chronic kidney disease with end stage renal failure on dialysis Chronic pain Congestive heart failure (CHF) Depression Diabetes DM2 (diabetes mellitus, type 2) DVT (deep venous thrombosis) ESRD (end stage renal disease) ESRD on hemodialysis History of echocardiogram History of pain when walking History of renal dialysis History of renal disease HTN (hypertension) Hypertension Hypertension Hyponatremia Hypothyroidism Hypothyroidism Injury of head and neck Insulin dependent diabetes mellitus Kidney disease Non-compliance with renal dialysis Problem with dialysis access Shortness of breath on exertion Smoker Thyroid disease Tobacco abuse Type 2 diabetes mellitus VTE (venous thromboembolism) Wears glasses Home Medications promethazine 25 mg tablet 25 mg PO Q8H PRN PRN Nausea 05/14/13 [History Last Taken Unknown] carvedilol 6.25 mg tablet 6.25 mg PO DAILY HEART 08/13/19 [History Last Taken 09/16/21] bupropion HCl 300 mg 24 hr tablet, extended release 300 mg PO DAILY DEPRESSION 12/21/19 [History Last Taken 09/16/21] nitroglycerin 0.4 mg sublingual tablet 0.4 mg sublingual Q5M PRN CHEST PAIN 12/21/19 [History Last Taken Unknown] gabapentin 300 mg capsule 100 mg PO DAILY neuropathy 01/19/20 [History Last Taken 09/16/21] tizanidine 2 mg capsule 2 mg PO TID PRN PRN muscle relaxant 01/19/20 [History Last Taken 08/09/21] albuterol sulfate 90 mcg/actuation aerosol inhaler 2 puff inhalation Q6H 08/28/20 [History Last Taken 08/27/20] magnesium oxide 400 mg (241.3 mg magnesium) tablet 400 mg PO DAILY supplement 08/28/20 [History Last Taken 09/16/21] sertraline 25 mg tablet 100 mg PO DAILY depression 08/28/20 [History Last Taken 09/16/21] ondansetron 4 mg disintegrating tablet 4 mg PO Q8H PRN nausea and vomiting #10 tabs 06/16/21 [Rx Last Taken Unknown] insulin glargine 100 unit/mL (3 mL) subcutaneous pen 28 unit SC QHS blood sugar 08/10/21 [History Last Taken 08/10/21] insulin lispro 100 unit/mL subcutaneous pen (Humalog KwikPen (U-100) Insulin) See Protocol subcut ACHS DM 08/10/21 [History Last Taken 09/15/21] acetaminophen 325 mg tablet 650 mg PO Q4H PRN pain/fever 09/14/21 [History Last Taken Unknown] acetaminophen 650 mg rectal suppository 650 mg ID Q4H PRN pain/fever 09/14/21 [History Last Taken Unknown] aluminum-magnesium hydroxide 225 mg-200 mg/5 mL oral suspension 30 ml PO Q4H PRN PRN Indigestion 09/14/21 [History Last Taken Unknown] aspirin 81 mg tablet,delayed release 81 mg PO DAILY blood thinner 09/14/21 [History Last Taken 09/16/21] atorvastatin 80 mg tablet 80 mg PO QHS cholesterol 09/14/21 [History Last Taken 09/15/21] bisacodyl 10 mg rectal suppository 10 mg ID DAILY PRN Constipation 09/14/21 [History Last Taken Unknown] calcitriol 0.25 mcg capsule 0.25 mcg PO DAILY supplement 09/14/21 [History Last Taken 09/16/21] dextrose 40 % oral gel (Glucose Gel) 10 g PO Q15M PRN Hypoglycemia 09/14/21 [History Last Taken Unknown] glucagon 1 mg injection kit 1 mg IM PRN PRN Hypoglycemia 09/14/21 [History Last Taken Unknown] guaifenesin 200 mg/5 mL oral liquid 200 mg PO Q4H PRN Cough 09/14/21 [History Last Taken Unknown] levothyroxine 200 mcg tablet 300 mcg PO DAILY thyroid 30 days #45 tabs 09/14/21 [Rx Last Taken 09/15/21] loratadine 10 mg capsule 10 mg PO DAILY allergies 09/14/21 [History Last Taken 09/16/21] losartan 50 mg tablet 50 mg PO DAILY bp 09/14/21 [History Last Taken 09/16/21] magnesium hydroxide 400 mg/5 mL oral suspension (Milk of Magnesia) 30 ml PO DAILY PRN Constipation 09/14/21 [History Last Taken 09/15/21] miconazole nitrate 2 % topical powder 1 applic topical TID Check with primary doctor 09/14/21 [History Last Taken Unknown] sodium phosphates 19 gram-7 gram/118 mL enema (Fleet Enema) 118 ml ID DAILY PRN Constipation 09/14/21 [History Last Taken Unknown] ticagrelor 90 mg tablet 90 mg PO BID blood thinner 09/14/21 [History Last Taken 09/16/21] vitamin B complex-vitamin C-folic acid 0.8 mg tablet (Renal Vitamin) 1 tab PO DAILY suppelemt 09/14/21 [History Last Taken 09/16/21] ibuprofen 400 mg tablet 400 mg PO Q8H PRN Pain 10/30/21 [History Last Taken Unknown] Allergy/AdvReac Type Severity Reaction Status Date / Time codeine phosphate Allergy Swelling Verified 10/30/21 10:39 [From Tylenol-Codeine #3] simvastatin [From Zocor] Allergy Other Verified 10/30/21 10:39 Family History (Reviewed 10/30/21 @ 14:19 by Lorraine Rawls MATRIX BATH ATTENDANT, MATRIX BATH ATTENDANT-C) Mother Diabetes Kidney disease CVA (cerebral vascular accident) Father Heart disease Mother Diabetes Surgical History History of cardiac catheterization History of heart artery stent History of right mastectomy S/P dialysis catheter insertion S/P right coronary artery (RCA) stent placement Social History [facility]: [facility] Smoking Status: Heavy Smoker (>10/day) alcohol intake: never substance use type: does not use ROS Constitutional Constitutional: Denies change in weight, chills, fatigue, fever(s) or weakness Cardiovascular Cardiovascular: Denies chest pain, edema, lightheadedness, palpitations or syncope Respiratory/Chest Respiratory/Chest: Denies cough, dyspnea, productive cough, shortness of breath at rest, shortness of breath with exertion or wheezing Gastrointestinal Gastrointestinal: Denies abdominal pain, constipation, diarrhea, nausea or vomiting Genitourinary Genitourinary: Denies burning urination, difficulty urinating, dysuria, hematuria, urinary frequency, urinary incontinence or urinary urgency Musculoskeletal Musculoskeletal: Denies back pain, joint pain or muscle weakness Integumentary Integumentary: Reports other Details: Buttock wounds ; Denies erythema, lesions or rash Neurologic Neurologic: Denies abnormal speech, confusion, dizziness, focal weakness, numbness, paresthesias, seizure-like activity or syncope Psychiatric Psychiatric: Denies anxiety or depression Hematologic/Lymphatic Hematologic/Lymphatic: Denies anemia, easy bleeding or easy bruising Allergic/Immunologic Allergic/Immunologic: Denies hives or asthma Vital Signs Vital Signs Vital Signs: 10/30/21 09:56 10/30/21 09:58 10/30/21 10:09 Temperature 98.8 F 98.8 F Temperature Source Temporal Temporal Pulse Rate 79 79 75 Respiratory Rate 20 H 20 H 20 H Blood Pressure 129/71 H 129/71 H Blood Pressure Mean 90 90 Blood Pressure Source Blood Pressure Position Blood Pressure Location Pulse Ox 93 93 93 Oxygen Delivery Method Room Air Room Air Room Air Oxygen Flow Rate (L/min) 10/30/21 10:56 10/30/21 11:00 10/30/21 11:56 Temperature 98 F 98 F Temperature Source Temporal Temporal Pulse Rate 74 73 Respiratory Rate 20 H 20 H Blood Pressure 151/65 H 97/65 Blood Pressure Mean 93 75 Blood Pressure Source Blood Pressure Position Blood Pressure Location Pulse Ox 100 100 Oxygen Delivery Method Nasal Cannula Nasal Cannula Nasal Cannula Oxygen Flow Rate (L/min) 3 10/30/21 11:56 10/30/21 11:56 10/30/21 11:56 Temperature 98 F 98 F 98 F Temperature Source Temporal Temporal Temporal Pulse Rate 71 71 Respiratory Rate 20 H 20 H Blood Pressure 101/49 L 101/49 L Blood Pressure Mean 66 66 Blood Pressure Source Blood Pressure Position Blood Pressure Location Pulse Ox 100 100 Oxygen Delivery Method Nasal Cannula Nasal Cannula Oxygen Flow Rate (L/min) 3 10/30/21 12:30 10/30/21 12:30 10/30/21 13:46 Temperature 98 F 98 F Temperature Source Temporal Temporal Pulse Rate 71 Respiratory Rate 18 Blood Pressure 104/51 L Blood Pressure Mean 68 Blood Pressure Source Blood Pressure Position Blood Pressure Location Pulse Ox 100 81 Oxygen Delivery Method Nasal Cannula Room Air Oxygen Flow Rate (L/min) 3 10/30/21 13:47 10/30/21 14:09 Temperature 97.9 F Temperature Source Oral Pulse Rate 70 Respiratory Rate 18 Blood Pressure 138/109 H Blood Pressure Mean 118 Blood Pressure Source Monitor Blood Pressure Position Semi-Fowlers Blood Pressure Location Right Forearm Pulse Ox 89 100 Oxygen Delivery Method Nasal Cannula Nasal Cannula Oxygen Flow Rate (L/min) 4 2 Weight Weight: 289 lb 0.416 oz Body Mass Index (BMI) 49.6 Physical Exam Const alert and oriented x3 Orientation / Consciousness: awake, oriented to person, oriented to place and oriented to time HEENT normocephalic and moist oral mucous membranes Eyes PERRL, EOMs intact bilaterally and conjunctivae normal Neck no lymphadenopathy Resp normal respiratory effort and clear to auscultation bilaterally Cardio regular rate, regular rhythm and no murmurs Peripheral Pulses: pulses 2+ throughout GI normal to inspection, nondistended, normoactive bowel sounds, non-tender and non-distended Extremity normal to inspection General Extremity: edema bilateral lower extremity (generalized edema as well) Skin no rashes or lesions noted Skin Narrative: Buttock abscess with necrotic appearance Lesions: no lesions Rashes: no rashes Trauma: no lacerations or abrasions Neuro CN's II-XII intact bilaterally, no focal motor deficits, no sensory deficits noted and deep tendon reflexes 2+ bilaterally Psych mental status grossly normal and affect normal Results Lab / Micro Data Result Diagrams: 10/30/21 10:20 10/30/21 10:20 Labs: Laboratory Results - last 24 hr 10/30/21 10:20: WBC 9.8, RBC 2.42 L, Hgb 8.2 L, Hct 25.3 L, MCV 104.5 H, MCH 33.9 H, MCHC 32.4, RDW Std Deviation 64.9 H, RDW Coeff of Angela 16.8 H, Plt Count 134 L, MPV 10.3, Immature Gran % (Auto) 0.500, Neut % (Auto) 82.7 H, Lymph % (Auto) 4.2 L, Coal % (Auto) 10.7 H, Eos % (Auto) 1.7, Baso % (Auto) 0.2, Absolute Neuts (auto) 8.1 H, Absolute Lymphs (auto) 0.41 L, Nucleated RBC % 0, Differential Comment SCANNED 10/30/21 10:20: PT 16.6 H, INR 1.4, APTT 32.4 10/30/21 10:20: Sodium 129 L, Potassium 3.9, Chloride 93 L, Carbon Dioxide 31.0, Anion Gap 5, BUN 32 H, Creatinine 3.26 H, Estim Creat Clear Calc 16.05, Est GFR (MDRD) Af Amer 19 L, Est GFR (MDRD) Non-Af 15 L, BUN/Creatinine Ratio 9.8 L, Glucose 90, Calcium 8.7, Total Bilirubin 0.40, AST 19, ALT 25, Alkaline Phosphatase 173 H, Total Protein 7.1, Albumin 2.9 L, Globulin 4.2, Albumin/Globulin Ratio 0.7 L 10/30/21 10:20: Lactic Acid 0.7 Radiology Impression Abdomen/Pelvis CT 10/30/21 11:13 IMPRESSION: Diffuse subcutaneous edema with skin thickening of the abdominal wall as well as the left breast. The patient is status post right mastectomy. Fatty infiltration of the liver. Small amount of perihepatic fluid. Fluid is seen in the pelvis. Multiple small gallstones. Electronically Signed: Georges Lucas MD at 13:26 EDT , Chest X-Ray 10/30/21 11:26 IMPRESSION: A right-sided central line is seen with the tip at the junction of the superior vena cava and right atrium. A left-sided double-lumen catheter is seen with the tip in the right atrium. Increased linear marking in the right mid lung suggestive of atelectasis and/or scarring. Electronically Signed: Georges Lucas MD at 12:47 EDT , Assessment & Plan Assessment/Plan (1) Cutaneous abscess of buttock: PLAN: Plan 1. Buttock abscess with likely necrotic tissue-General surgery consulted. Will likely need further debridement. Continue IV Zosyn. Obtain wound culture. 2. Chronic heart failure with preserved ejection fraction-no exacerbation. Continue dialysis for fluid management. 3. CAD with history of PCI-recent intervention July 2021 at [facility]. On aspirin, Brilinta, statin, beta-joaquin. 4. Type 2 diabetes onrduadh-Mpxg-Hoyrq with sliding scale insulin. Continue home insulin regimen. 5. End-stage renal disease on hemodialysis-nephrology consulted. 6. Hypothyroidism-continue Synthroid. 7. Depression/anxiety-on bupropion, sertraline. 8. Anemia of chronic disease-at baseline. 9. Morbid obesity-encouraged diet and lifestyle modifications. DVT prophylaxis-Heparin subcu This patient was seen by MARCELO Bullock under the supervision of Dr. Mariscal. Time spent examining patient, reviewing data and subsequent management of care: 23 minutes Documented by User: Dr. Iban Mariscal DO 10/30/21 16:19 HPI - General General Date of Admission: 10/30/21 [facility] Medical History (Updated 10/30/21 @ 14:10 by MARCELO Lugo) Acute on chronic diastolic CHF (congestive heart failure) Back pain Breast cancer CAD (coronary artery disease) Cancer Cardiology follow-up encounter Chronic kidney disease with end stage renal failure on dialysis Chronic pain Congestive heart failure (CHF) Depression Diabetes DM2 (diabetes mellitus, type 2) DVT (deep venous thrombosis) ESRD (end stage renal disease) ESRD on hemodialysis History of echocardiogram History of pain when walking History of renal dialysis History of renal disease HTN (hypertension) Hypertension Hypertension Hyponatremia Hypothyroidism Hypothyroidism Injury of head and neck Insulin dependent diabetes mellitus Kidney disease Non-compliance with renal dialysis Problem with dialysis access Shortness of breath on exertion Smoker Thyroid disease Tobacco abuse Type 2 diabetes mellitus VTE (venous thromboembolism) Wears glasses Home Medications promethazine 25 mg tablet 25 mg PO Q8H PRN PRN Nausea 05/14/13 [History Last Taken Unknown] carvedilol 6.25 mg tablet 6.25 mg PO DAILY HEART 08/13/19 [History Last Taken 09/16/21] bupropion HCl 300 mg 24 hr tablet, extended release 300 mg PO DAILY DEPRESSION 12/21/19 [History Last Taken 09/16/21] nitroglycerin 0.4 mg sublingual tablet 0.4 mg sublingual Q5M PRN CHEST PAIN 12/21/19 [History Last Taken Unknown] gabapentin 300 mg capsule 100 mg PO DAILY neuropathy 01/19/20 [History Last Taken 09/16/21] tizanidine 2 mg capsule 2 mg PO TID PRN PRN muscle relaxant 01/19/20 [History Last Taken 08/09/21] albuterol sulfate 90 mcg/actuation aerosol inhaler 2 puff inhalation Q6H 08/28/20 [History Last Taken 08/27/20] magnesium oxide 400 mg (241.3 mg magnesium) tablet 400 mg PO DAILY supplement 08/28/20 [History Last Taken 09/16/21] sertraline 25 mg tablet 100 mg PO DAILY depression 08/28/20 [History Last Taken 09/16/21] ondansetron 4 mg disintegrating tablet 4 mg PO Q8H PRN nausea and vomiting #10 tabs 06/16/21 [Rx Last Taken Unknown] insulin glargine 100 unit/mL (3 mL) subcutaneous pen 28 unit SC QHS blood sugar 08/10/21 [History Last Taken 08/10/21] insulin lispro 100 unit/mL subcutaneous pen (Humalog KwikPen (U-100) Insulin) See Protocol subcut ACHS DM 08/10/21 [History Last Taken 09/15/21] acetaminophen 325 mg tablet 650 mg PO Q4H PRN pain/fever 09/14/21 [History Last Taken Unknown] acetaminophen 650 mg rectal suppository 650 mg ID Q4H PRN pain/fever 09/14/21 [History Last Taken Unknown] aluminum-magnesium hydroxide 225 mg-200 mg/5 mL oral suspension 30 ml PO Q4H PRN PRN Indigestion 09/14/21 [History Last Taken Unknown] aspirin 81 mg tablet,delayed release 81 mg PO DAILY blood thinner 09/14/21 [History Last Taken 09/16/21] atorvastatin 80 mg tablet 80 mg PO QHS cholesterol 09/14/21 [History Last Taken 09/15/21] bisacodyl 10 mg rectal suppository 10 mg ID DAILY PRN Constipation 09/14/21 [History Last Taken Unknown] calcitriol 0.25 mcg capsule 0.25 mcg PO DAILY supplement 09/14/21 [History Last Taken 09/16/21] dextrose 40 % oral gel (Glucose Gel) 10 g PO Q15M PRN Hypoglycemia 09/14/21 [History Last Taken Unknown] glucagon 1 mg injection kit 1 mg IM PRN PRN Hypoglycemia 09/14/21 [History Last Taken Unknown] guaifenesin 200 mg/5 mL oral liquid 200 mg PO Q4H PRN Cough 09/14/21 [History Last Taken Unknown] levothyroxine 200 mcg tablet 300 mcg PO DAILY thyroid 30 days #45 tabs 09/14/21 [Rx Last Taken 09/15/21] loratadine 10 mg capsule 10 mg PO DAILY allergies 09/14/21 [History Last Taken 09/16/21] losartan 50 mg tablet 50 mg PO DAILY bp 09/14/21 [History Last Taken 09/16/21] magnesium hydroxide 400 mg/5 mL oral suspension (Milk of Magnesia) 30 ml PO DAILY PRN Constipation 09/14/21 [History Last Taken 09/15/21] miconazole nitrate 2 % topical powder 1 applic topical TID Check with primary doctor 09/14/21 [History Last Taken Unknown] sodium phosphates 19 gram-7 gram/118 mL enema (Fleet Enema) 118 ml ID DAILY PRN Constipation 09/14/21 [History Last Taken Unknown] ticagrelor 90 mg tablet 90 mg PO BID blood thinner 09/14/21 [History Last Taken 09/16/21] vitamin B complex-vitamin C-folic acid 0.8 mg tablet (Renal Vitamin) 1 tab PO DAILY suppelemt 09/14/21 [History Last Taken 09/16/21] ibuprofen 400 mg tablet 400 mg PO Q8H PRN Pain 10/30/21 [History Last Taken Unknown] Allergy/AdvReac Type Severity Reaction Status Date / Time codeine phosphate Allergy Swelling Verified 10/30/21 10:39 [From Tylenol-Codeine #3] simvastatin [From Zocor] Allergy Other Verified 10/30/21 10:39 Family History (Reviewed 10/30/21 @ 14:19 by Lorraine Rawls MATRIX BATH ATTENDANT, MATRIX BATH ATTENDANT-C) Mother Diabetes Kidney disease CVA (cerebral vascular accident) Father Heart disease Mother Diabetes Surgical History (Reviewed 10/30/21 @ 14:19 by Lorraine Rawls MATRIX BATH ATTENDANT, MATRIX BATH ATTENDANT-C) History of cardiac catheterization History of heart artery stent History of right mastectomy S/P dialysis catheter insertion S/P right coronary artery (RCA) stent placement Social History housing: [facility] Smoking Status: Heavy Smoker (>10/day) alcohol intake: never substance use type: does not use Results Lab / Micro Data Result Diagrams: 10/30/21 10:20 10/30/21 10:20 Assessment & Plan Assessment/Plan (1) Cutaneous abscess of buttock: Charges/Coding Addendum Addendum: Patient was seen and examined independently of Lorraine Rawls, she was sent to the emergency room today where she underwent debridement of 2 abscesses total-1 on each buttocks by general surgery. General surgery request the patient be admitted for IV antibiotic treatment, patient has end-stage renal disease and is on dialysis chronically. She has been retaining more fluid recently according to general surgery. On examination she appeared older than her stated age, she is morbidly obese, she does not appear to be in any distress. Vital signs as documented. Skin warm and dry and without overt rashes, the abscessed areas over the patient's buttocks was not examined due to the fact surgical dressing is in place on both areas. Neck without JVD, thyroid appears normal, trachea is midline, neck is supple. Lungs clear, normal air movement was noted. Heart exam notable for regular rhythm, normal sounds and absence of murmurs, rubs or gallops. Abdomen unremarkable and without evidence of organomegaly, masses, or abdominal aortic enlargement, bowel sounds are present in all 4 quadrants, no abdominal tenderness was noted. Extremities-generalized pitting edema is noted over the patient's legs bilaterally, no cyanosis was noted, no clubbing was noted. Neuro: Cranial nerves II through XII are grossly intact, no focal motor deficits were noted, sensation to light touch and pinprick is intact, motor exam 5/5 throughout. Psych: Patient is alert and oriented x3, she does not appear anxious or depressed, she does not appear agitated. Assessment #1 bilateral buttocks abscesses-patient will be admitted to [facility] (patient's bed is on PCU due to bed availability), she will be seen in consultation by nephrology and general surgery, she will receive dialysis and begin IV antibiotics-Zosyn and vancomycin. #2 end-stage renal disease on dialysis-patient will be seen by nephrology, she will probably undergo dialysis today and and tomorrow-tomorrow is her usual dialysis day. #3 morbid obesity-complicates care, management, recovery, and prognosis. #4 hyperlipidemia-patient is on atorvastatin #5 chronic depression-patient is on Wellbutrin and Zoloft #6 anemia of chronic kidney disease-CBC will be monitored #7 hyponatremia-this will be monitored, this does not appear to be an issue at this time #8 type 2 diabetes-blood sugars will be monitored, sliding scale insulin will be used if needed #9 hypothyroidism-patient is on Synthroid #10 coronary artery disease-patient had a coronary artery stent inserted over the last few months, she is currently on Brilinta and aspirin I have reviewed Lorraine Rawls's history and physical including her medical assessment and plan of care and endorse it. Total clinical time spent by myself addressing the patient's medical issues, reviewing the data, and collaborating with patient's care team: 50 minutes Visit Charges Inpatient E&M: 24432 Init Hosp L3
[2021-10-30] MEDS: oxyCODONE 5 MG Tablet 10 MG PO ×2 (14:31→21:48)
--- NOTE | 2021-10-30 14:31 | WOUNDNOTE ---
wound photo: right buttock
--- NOTE | 2021-10-30 14:31 | WOUNDNOTE ---
wound photo: left buttock
--- NOTE | 2021-10-30 16:06 | NURSING ---
Barney Benton called and was updated. States has a concern about Nae feels gets confused. She doesnt remember at times. Will forward to
--- NOTE | 2021-10-30 16:56 | DIALYSIS ---
2 hours of IUF for fluid overload. Uf 1800 ml. no refill. CVC WNL. pateitn tolerated fair. decrease in respiratory effort post treatment. See dialysis documentation in chart
[2021-10-30 17:50] LABS: Bedside Glucose 100 mg/dL (74-106)
[2021-10-30] MEDS: 0.9% Saline Lock 10 ML Syringe IV (18:25)
--- NOTE | 2021-10-30 20:17 | PCM.RX.CS ---
Consult Pharmacy has been consulted to manage selected antiobiotic: Vancomycin Type of Consult: New start Prior Doses of Antibiotics Received/Current Regimen: Medications Discontinued Medications Vancomycin HCl 2,000 mg/ (Sodium Chloride) 540 mls @ 250 mls/hr IV X1 ONE Stop: 10/30/21 12:15 Last Admin: 10/30/21 18:25 Dose: 250 mls/hr Labs: Sodium 129 mmol/L (136-145) L 10/30/21 10:20 Potassium 3.9 mmol/L (3.5-5.1) 10/30/21 10:20 Chloride 93 mmol/L (98-107) L 10/30/21 10:20 Carbon Dioxide 31.0 mmol/L (21.0-32.0) 10/30/21 10:20 Anion Gap 5 (5-15) 10/30/21 10:20 BUN 32 mg/dL (7-18) H 10/30/21 10:20 Creatinine 3.26 mg/dL (0.55-1.02) H 10/30/21 10:20 Est GFR (MDRD) Af Amer 19 mL/min (>60) L 10/30/21 10:20 Est GFR (MDRD) Non-Af 15 mL/min (>60) L 10/30/21 10:20 BUN/Creatinine Ratio 9.8 RATIO (10-20) L 10/30/21 10:20 Glucose 90 mg/dL (74-106) 10/30/21 10:20 Goal Trough: 10-15 mcg/mL Pharmacy Plan for Drug Dosing: Patient received 2g load. Missed dialysis and will receive a couple of sessions. Recommend to check level in a.m. and determine dosing based on level. Pharmacy Service will continue to monitor and adjust dosing as required. Follow-Up Labs: Trough Vancomycin - 10/31 0600
[2021-10-30] MEDS: Atorvastatin Calcium 80 MG Tablet PO (21:37)
[2021-10-30] MEDS: Heparin Injection (Vial) 5,000 UNIT/ML VIAL 5000 UNIT SC (21:37)
[2021-10-30] MEDS: TICAGRELOR 90 MG TABLET PO (21:37)
[2021-10-30] MEDS: Acetaminophen 325 MG Tablet 650 MG PO (21:48)
[2021-10-30 22:05] LABS: Bedside Glucose 114 mg/dL (74-106)
[2021-10-31 03:00] VITALS: BP 108/51; PULSE 78; RESP 20; TEMP 36.8; O2SAT 100
[2021-10-31 04:28] LABS: Absolute Lymphocyte Count 0.66 X10^3/uL (0.83-4.51); Absolute Neutrophil Count 5.6 X10^3/uL (2.0-7.7); Basophil# 0.03 X10^3/uL; Basophil% 0.4 % (0-1); Eosinophil# 0.23 X10^3/uL; Hematocrit 22.9 % (37-47); Hemoglobin 7.3 g/dL (12.0-15.0); Lymphocyte # 0.66 X10^3/ul (0.83-4.51); Lymphocyte % 8.5 % (19-41); Mean Corp Hgb Conc 31.9 g/dL (32-36); Mean Corpuscular Hgb 34.1 pg (27.0-32.0); Monocyte# 1.17 X10^3/uL; Monocyte% 15.1 % (0-10); NRBC Flagged by Analyzer 0 % (0-5); Neutrophil # 5.61 X10^3/uL (2.7-7.7); Neutrophil % 72.5 % (47-70); POSITIVE MORPHOLOGY YES; Platelet Count 157 K/mm3 (150-450); RBC Distribution Width CV 16.7 % (11.6-14.6); Red Blood Count 2.14 M/mm3 (4.2-5.4); White Blood Count 7.7 K/mm3 (4.4-11.0)
[2021-10-31 04:29] LABS: Differential Indicated SCAN CRITERIA MET
[2021-10-31 04:42] LABS: Anion Gap 7 (5-15); BUN 37 mg/dL (7-18); BUN/Creat Ratio 10.9 RATIO (10-20); Chloride 95 mmol/L (98-107); Creatinine, Serum 3.39 mg/dL (0.55-1.02); EST Glomerular Filtration Rate 15 mL/min (>60); Est Glom Filt Rate - Afr Amer 18 mL/min (>60); Estimated Creatinine Clearance 15.43 ml/min; Glucose 92 mg/dL (74-106); Sodium Level 131 mmol/L (136-145)
[2021-10-31 04:55] LABS: RBC Distribution Width SD 65.9 fl (35.1-43.9)
[2021-10-31 04:56] LABS: Differential Comment SCANNED; Macrocytosis 1+
[2021-10-31 04:59] LABS: Polychromasia RARE
[2021-10-31 05:01] LABS: Vancomycin, Random Level 20.7 ug/mL (0.0-15.0)
[2021-10-31] MEDS: Levothyroxine 100 MCG Tablet 300 MCG PO (05:41)
[2021-10-31] MEDS: 0.9% Saline Lock 10 ML Syringe IV ×4 (05:43→16:52)
[2021-10-31] MEDS: oxyCODONE 5 MG Tablet 10 MG PO ×3 (05:43→15:59)
[2021-10-31] MEDS: Acetaminophen 325 MG Tablet 650 MG PO (05:43)
[2021-10-31 07:17] LABS: Bedside Glucose 94 mg/dL (74-106)
[2021-10-31 09:00] VITALS: BP 163/80; PULSE 82; RESP 16; TEMP 36.8; O2SAT 99
--- NOTE | 2021-10-31 09:31 | PN.RENAL_ITS ---
Subjective Subjective Seen on dialysis, tolerating treatment well. Patient is more awake and alert today. Denies any nausea. Denies any shortness of breath or chest pain. Objective Data Objective Data Vital Signs: Vital Signs Temp Pulse Resp BP Pulse Ox O2 Del Method O2 Flow Rate 98.2 F 82 16 163/80 H 99 Nasal Cannula 2 10/31/21 09:00 10/31/21 09:00 10/31/21 09:00 10/31/21 09:00 10/31/21 09:00 10/31/21 09:00 10/31/21 09:00 Oxygen Flow Rate (L/min) 2 Oxygen Delivery Method Nasal Cannula Weight: 131.1 kg Body Mass Index (BMI) 49.6 Intake & Output: Intake and Output for Last 24 Hours 10/29/21 10/30/21 10/31/21 23:59 23:59 23:59 Intake Total 1090 / 1290 350 / 350 Output Total 1800 / 1800 Balance -710 / -510 350 / 350 Lab / Micro Data Result Diagrams: 10/31/21 04:22 10/31/21 04:22 Labs: Laboratory Results - last 24 hr 10/30/21 10:20: WBC 9.8, RBC 2.42 L, Hgb 8.2 L, Hct 25.3 L, MCV 104.5 H, MCH 33.9 H, MCHC 32.4, RDW Std Deviation 64.9 H, RDW Coeff of Angela 16.8 H, Plt Count 134 L, MPV 10.3, Immature Gran % (Auto) 0.500, Neut % (Auto) 82.7 H, Lymph % (Auto) 4.2 L, [place] % (Auto) 10.7 H, Eos % (Auto) 1.7, Baso % (Auto) 0.2, A bsolute Neuts (auto) 8.1 H, Absolute Lymphs (auto) 0.41 L, Nucleated RBC % 0, Differential Comment SCANNED 10/30/21 10:20: PT 16.6 H, INR 1.4, APTT 32.4 10/30/21 10:20: Sodium 129 L, Potassium 3.9, Chloride 93 L, Carbon Dioxide 31.0, Anion Gap 5, BUN 32 H, Creatinine 3.26 H, Estim Creat Clear Calc 16.05, Est GFR (MDRD) Af Amer 19 L, Est GFR (MDRD) Non-Af 15 L, BUN/Creatinine Ratio 9.8 L, Glucose 90, Calcium 8.7, Total Bilirubin 0.40, AST 19, ALT 25, Alkaline Phosphatase 173 H, Total Protein 7.1, Albumin 2.9 L, Globulin 4.2, Albumin/Globulin Ratio 0.7 L 10/30/21 10:20: Lactic Acid 0.7 10/30/21 17:30: POC Glucose 100 10/30/21 21:41: POC Glucose 114 H 10/31/21 04:22: WBC 7.7, RBC 2.14 L, Hgb 7.3 L, Hct 22.9 L, MCV 107.0 H, MCH 34.1 H, MCHC 31.9 L, RDW Std Deviation 65.9 H, RDW Coeff of Angela 16.7 H, Plt Count 157, MPV 10.0, Immature Gran % (Auto) 0.500, Neut % (Auto) 72.5 H, Lymph % (Auto) 8.5 L, [place] % (Auto) 15.1 H, Eos % (Auto) 3.0, Baso % (Auto) 0.4, Absolute Neuts (auto) 5.6, Absolute Lymphs (auto) 0.66 L, Nucleated RBC % 0, Differential Comment SCANNED, Polychromasia RARE, Macrocytosis 1+ 10/31/21 04:22: Sodium 131 L, Potassium 4.0, Chloride 95 L, Carbon Dioxide 29.0, Anion Gap 7, BUN 37 H, Creatinine 3.39 H, Estim Creat Clear Calc 15.43, Est GFR (MDRD) Af Amer 18 L, Est GFR (MDRD) Non-Af 15 L, BUN/Creatinine Ratio 10.9, Glucose 92, Calcium 8.0 L 10/31/21 04:22: Random Vancomycin 20.7 H 10/31/21 06:43: POC Glucose 94 Radiography Diagnostic Testing: Radiology Impression Abdomen/Pelvis CT 10/30/21 11:13 IMPRESSION: Diffuse subcutaneous edema with skin thickening of the abdominal wall as well as the left breast. The patient is status post right mastectomy. Fatty infiltration of the liver. Small amount of perihepatic fluid. Fluid is seen in the pelvis. Multiple small gallstones. Electronically Signed: Georges Lucas MD at 13:26 EDT , Chest X-Ray 10/30/21 11:26 IMPRESSION: A right-sided central line is seen with the tip at the junction of the superior vena cava and right atrium. A left-sided double-lumen catheter is seen with the tip in the right atrium. Increased linear marking in the right mid lung suggestive of atelectasis and/or scarring. Electronically Signed: Georges Lucas MD at 12:47 EDT , Physical Exam Narrative Const: Alert and oriented x3. In no apparent distress HEENT: Head is normocephalic. Or mucosa moist Respiratory: diminished breath sounds posteriorly, scattered rhonchi Cardio: S1, S2, RRR GI: Abdomen soft, nontender, positive bowel sounds Extremities: 3-4+ Pitting edema noted to bilateral arms and legs. Left upper arm AV fistula positive bruit noted, faint thrill Left chest tunneled HD catheter dressing clean, dry and intact Assessment & Plan Assessment/Plan (1) ESRD (end stage renal disease): (2) Cutaneous abscess of buttock: (3) Anemia: QUALIFIERS: Anemia type: due to chronic kidney disease Chronic kidney disease stage: on chronic dialysis Qualified Code(s): N18.6 - End stage renal disease; D63.1 - Anemia in chronic kidney disease; Z99.2 - Dependence on renal dialysis (4) Anasarca: PLAN: Plan -ESRD: on HD at [facility] Wednesday schedule. Patient has a history of noncompliance with dialysis and tends to skip dialysis as well as shorten treatments. Discussed with patient today importance of not shortening HD treatments or missing dialysis, risk of missing HD reviewed and explained to patient. This week she shortened dialysis Wednesday and missed her dialysis session altogether on Wednesday. Patient is significantly fluid overloaded. Patient had IUF yesterday but only tolerated 1.8L fluid removed, unable to remove more fluid due to lower bps. BP improved today and attempting 4L UF over 4hr HD treatment. Will plan for IUF treatment tomorrow. Trinhro ordered. -History of hypertension: Recommend holding Coreg morning of dialysis. Patient's blood pressure was low yesterday and we stopped losartan. She is on carvedilol - buttock wounds s/p I&D. On antibiotics; Zosyn and vanco. BC pending. CT A/P reviewed and showing diffuse edema -History of anemia of chronic disease: We will monitor hemoglobin trends. Patient receives KANDI at the skilled nursing. -Hyponatremia likely secondary to fluid overload/ESRD
--- NOTE | 2021-10-31 09:48 | CASEMGMT ---
Discharge Director Regulatory Affairs Aisha Pink [employer] Director faxed over updates on patient to [facility]. Aisha Gonzalez Discharge Director Regulatory Affairs
--- NOTE | 2021-10-31 10:00 | PCM.RX.CS ---
Consult Pharmacy has been consulted to manage selected antiobiotic: Vancomycin Type of Consult: Follow-up Suspected Infection: Skin/Soft tissue Prior Doses of Antibiotics Received/Current Regimen: received vanc 2000mg IV x1 yesterday starting at 18:25 Labs: Sodium 131 mmol/L (136-145) L 10/31/21 04:22 Potassium 4.0 mmol/L (3.5-5.1) 10/31/21 04:22 Chloride 95 mmol/L (98-107) L 10/31/21 04:22 Carbon Dioxide 29.0 mmol/L (21.0-32.0) 10/31/21 04:22 Anion Gap 7 (5-15) 10/31/21 04:22 BUN 37 mg/dL (7-18) H 10/31/21 04:22 Creatinine 3.39 mg/dL (0.55-1.02) H 10/31/21 04:22 Est GFR (MDRD) Af Amer 18 mL/min (>60) L 10/31/21 04:22 Est GFR (MDRD) Non-Af 15 mL/min (>60) L 10/31/21 04:22 BUN/Creatinine Ratio 10.9 RATIO (10-20) 10/31/21 04:22 Glucose 92 mg/dL (74-106) 10/31/21 04:22 Random Vancomycin 20.7 ug/mL (0.0-15.0) H 10/31/21 04:22 Weight used for dosin.1 kg Estimated Creatinine Clearance: on HD Goal Trough: 10-15 mcg/mL Pharmacy Plan for Drug Dosing: The vanc random level drawn this morning was 20.7. This is above 20 and the goal trough is 10-15 so will not re-dose today. Will repeat another vanc random level tomorrow morning before dialysis session. Will use that level to determine if a dose should be given tomorrow. Pharmacy Service will continue to monitor and adjust dosing as required. Follow-Up Labs: Trough Vancomycin - random pre-dialysis Labs to be done on [date and time ordered]: 11/01/21 0600
--- NOTE | 2021-10-31 10:02 | NURSING ---
updated LUMA mccarthy am
--- NOTE | 2021-10-31 10:29 | PCM.PN.HOSP ---
Documented by User: Lorraine Rawls NP, LARD MIXER-C 10/31/21 10:38 Subjective Subjective Patient seen and examined. Undergoing dialysis. Denies current symptoms or complaints. Objective Data Objective Data Vital Signs: Vital Signs Temp Pulse Resp BP Pulse Ox O2 Del Method O2 Flow Rate 98.2 F 82 16 163/80 H 99 Nasal Cannula 2 10/31/21 09:00 10/31/21 09:00 10/31/21 09:00 10/31/21 09:00 10/31/21 09:00 10/31/21 09:00 10/31/21 09:00 Oxygen Flow Rate (L/min) 2 Oxygen Delivery Method Nasal Cannula Weight: 289 lb 0.416 oz Body Mass Index (BMI) 49.6 Intake & Output: Intake and Output for Last 24 Hours 10/29/21 10/30/21 10/31/21 23:59 23:59 23:59 Intake Total 1090 / 1290 350 / 350 Output Total 1800 / 1800 Balance -710 / -510 350 / 350 Lab / Micro Data Result Diagrams: 10/31/21 04:22 10/31/21 04:22 Labs: Laboratory Results - last 24 hr 10/30/21 10:20: WBC 9.8, RBC 2.42 L, Hgb 8.2 L, Hct 25.3 L, MCV 104.5 H, MCH 33.9 H, MCHC 32.4, RDW Std Deviation 64.9 H, RDW Coeff of Angela 16.8 H, Plt Count 134 L, MPV 10.3, Immature Gran % (Auto) 0.500, Neut % (Auto) 82.7 H, Lymph % (Auto) 4.2 L, Pitt % (Auto) 10.7 H, Eos % (Auto) 1.7, Baso % (Auto) 0.2, Absolute Neuts (auto) 8.1 H, Absolute Lymphs (auto) 0.41 L, Nucleated RBC % 0, Differential Comment SCANNED 10/30/21 10:20: PT 16.6 H, INR 1.4, APTT 32.4 10/30/21 10:20: Sodium 129 L, Potassium 3.9, Chloride 93 L, Carbon Dioxide 31.0, Anion Gap 5, BUN 32 H, Creatinine 3.26 H, Estim Creat Clear Calc 16.05, Est GFR (MDRD) Af Amer 19 L, Est GFR (MDRD) Non-Af 15 L, BUN/Creatinine Ratio 9.8 L, Glucose 90, Calcium 8.7, Total Bilirubin 0.40, AST 19, ALT 25, Alkaline Phosphatase 173 H, Total Protein 7.1, Albumin 2.9 L, Globulin 4.2, Albumin/Globulin Ratio 0.7 L 10/30/21 10:20: Lactic Acid 0.7 10/30/21 17:30: POC Glucose 100 10/30/21 21:41: POC Glucose 114 H 10/31/21 04:22: WBC 7.7, RBC 2.14 L, Hgb 7.3 L, Hct 22.9 L, MCV 107.0 H, MCH 34.1 H, MCHC 31.9 L, RDW Std Deviation 65.9 H, RDW Coeff of Angela 16.7 H, Plt Count 157, MPV 10.0, Immature Gran % (Auto) 0.500, Neut % (Auto) 72.5 H, Lymph % (Auto) 8.5 L, [place] % (Auto) 15.1 H, Eos % (Auto) 3.0, Baso % (Auto) 0.4, Absolute Neuts (auto) 5.6, Absolute Lymphs (auto) 0.66 L, Nucleated RBC % 0, Differential Comment SCANNED, Polychromasia RARE, Macrocytosis 1+ 10/31/21 04:22: Sodium 131 L, Potassium 4.0, Chloride 95 L, Carbon Dioxide 29.0, Anion Gap 7, BUN 37 H, Creatinine 3.39 H, Estim Creat Clear Calc 15.43, Est GFR (MDRD) Af Amer 18 L, Est GFR (MDRD) Non-Af 15 L, BUN/Creatinine Ratio 10.9, Glucose 92, Calcium 8.0 L 10/31/21 04:22: Random Vancomycin 20.7 H 10/31/21 06:43: POC Glucose 94 Radiography Diagnostic Testing: Radiology Impression Abdomen/Pelvis CT 10/30/21 11:13 IMPRESSION: Diffuse subcutaneous edema with skin thickening of the abdominal wall as well as the left breast. The patient is status post right mastectomy. Fatty infiltration of the liver. Small amount of perihepatic fluid. Fluid is seen in the pelvis. Multiple small gallstones. Electronically Signed: Georges Lucas MD at 13:26 EDT , Chest X-Ray 10/30/21 11:26 IMPRESSION: A right-sided central line is seen with the tip at the junction of the superior vena cava and right atrium. A left-sided double-lumen catheter is seen with the tip in the right atrium. Increased linear marking in the right mid lung suggestive of atelectasis and/or scarring. Electronically Signed: Georges Lucas MD at 12:47 EDT , Physical Exam Const alert, oriented x3 and no apparent distress Orientation / Consciousness: awake, oriented to person, oriented to place and oriented to time Nutritional Appearance: obese HEENT normocephalic Mouth: dry mucous membranes Eyes PERRL, EOMs intact bilaterally and conjunctivae normal Neck no lymphadenopathy Resp clear to auscultation bilaterally Auscultation: diminished lung sounds Cardio regular rate, regular rhythm and no murmurs Peripheral Pulses: pulses 2+ throughout GI normal to inspection, nondistended, normoactive bowel sounds, non-tender and non-distended Extremity normal to inspection Skin no rashes or lesions noted Skin Narrative: Bilateral buttock wounds Lesions: no lesions Rashes: no rashes Trauma: no lacerations or abrasions Neuro CN's II-XII intact bilaterally, no focal motor deficits, no sensory deficits noted and deep tendon reflexes 2+ bilaterally Psych Mood & Affect: flat affect Assessment & Plan Assessment/Plan (1) Cutaneous abscess of buttock: PLAN: Plan 1.? Buttock abscess with likely necrotic tissue-General surgery consulted.? Underwent bedside incision and drainage 10/30/2021.? Continue IV Zosyn.? Blood cultures pending. 2. Chronic heart failure with preserved ejection fraction-no exacerbation.? Continue dialysis for fluid management. 3. CAD with history of PCI-recent intervention July 2021 at [facility].? On aspirin, Brilinta, statin, beta-joaquin. 4. Type 2 diabetes [id number] with sliding scale insulin.? Continue home insulin regimen. 5. End-stage renal disease on hemodialysis-nephrology consulted. 6. Hypothyroidism-continue Synthroid. 7. Depression/anxiety-on bupropion, sertraline. 8. Anemia of chronic disease-at baseline. 9. Morbid obesity-encouraged diet and lifestyle modifications. DVT prophylaxis-Heparin subcu This patient was seen by Lorraine Rawls, HANK-C under the supervision of Dr. Mariscal. Time spent examining patient, reviewing data and subsequent management of care: 13 minutes Documented by User: Dr. Iban Mariscal, DO 10/31/21 12:42 Objective Data Lab / Micro Data Result Diagrams: 10/31/21 04:22 10/31/21 04:22 Assessment & Plan Assessment/Plan (1) Cutaneous abscess of buttock: Charges/Coding Addendum Addendum: Patient was seen and examined independently of Lorraine Rawls, she has no complaints of any shortness of breath or chest discomfort, she is currently undergoing dialysis, her white blood cell count today was 7.7, hemoglobin was 7.3. On examination she appeared older than her stated age, she is morbidly obese, she does not appear to be in any distress. Vital signs as documented. Skin warm and dry and without overt rashes, the abscessed areas over the patient's buttocks was not examined due to the fact surgical dressing is in place on both areas. Neck without JVD, thyroid appears normal, trachea is midline, neck is supple. Lungs clear, normal air movement was noted. Heart exam notable for regular rhythm, normal sounds and absence of murmurs, rubs or gallops. Abdomen unremarkable and without evidence of organomegaly, masses, or abdominal aortic enlargement, bowel sounds are present in all 4 quadrants, no abdominal tenderness was noted. Extremities-generalized pitting edema is noted over the patient's legs bilaterally, no cyanosis was noted, no clubbing was noted.? Neuro: Cranial nerves II through XII are grossly intact, no focal motor deficits were noted, sensation to light touch and pinprick is intact, motor exam 5/5 throughout.? Psych: Patient is alert and oriented x3, she does not appear anxious or depressed, she does not appear agitated. #1 bilateral buttocks abscesses-continue Zosyn and vancomycin #2 end-stage renal disease on dialysis-patient is undergoing dialysis today #3 morbid obesity-complicates care, management, recovery, and prognosis. #4 hyperlipidemia-patient is on atorvastatin #5 chronic depression-patient is on Wellbutrin and Zoloft #6 anemia of chronic kidney disease-CBC will be monitored, patient will not be transfused today #7 hyponatremia-this will be monitored, this does not appear to be an issue at this time #8 type 2 diabetes-blood sugars will be monitored, sliding scale insulin will be used if needed #9 hypothyroidism-patient is on Synthroid #10 coronary artery disease-patient had a coronary artery stent inserted over the last few months, she is currently on Brilinta and aspirin I have reviewed Lorraine Rawls's progress note including her medical assessment and plan of care and with the above additions endorse it. Total clinical time spent by myself addressing the patient's medical issues, reviewing the data, and collaborating with patient's care team: 25-minute Visit Charges Inpatient E&M: 81396 Subs Hosp L3
[2021-10-31] MEDS: Ondansetron 4 MG/2 ML Vial IV (12:07)
[2021-10-31 12:14] VITALS: BP 198/71; PULSE 83; RESP 18; TEMP 36.9; O2SAT 95
[2021-10-31] MEDS: Juven (unflavored) Packet 1 PACKET PO ×2 (12:28→16:01)
[2021-10-31] MEDS: Heparin Injection (Vial) 5,000 UNIT/ML VIAL 5000 UNIT SC (12:28)
[2021-10-31] MEDS: Calcitriol 0.25 MCG Capsule PO (12:31)
[2021-10-31] MEDS: Aspirin E.C. 81 MG Tablet PO (12:31)
[2021-10-31] MEDS: Folic Acid/Vitamin B Comp W-C 1 Capsule 1 CAP PO (12:31)
[2021-10-31] MEDS: Carvedilol 6.25 MG Tablet PO (12:31)
[2021-10-31] MEDS: TICAGRELOR 90 MG TABLET PO (12:31)
[2021-10-31] MEDS: buPROPion (XL) 300 MG TABLET.XL PO (12:31)
[2021-10-31] MEDS: Gabapentin 100 MG Capsule PO (12:31)
[2021-10-31] MEDS: Sertraline 100 MG Tablet PO (12:32)
--- NOTE | 2021-10-31 12:39 | PN.SURG_ITS ---
Subjective Subjective Patient states that buttock wounds are less sore than previous. Currently patient eating lunch. Objective Data Objective Data Vital Signs: Vital Signs Temp Pulse Resp BP Pulse Ox O2 Del Method O2 Flow Rate 98.4 F 83 18 198/71 H 95 Nasal Cannula 2 10/31/21 12:14 10/31/21 12:14 10/31/21 12:14 10/31/21 12:14 10/31/21 12:14 10/31/21 12:14 10/31/21 12:14 Oxygen Flow Rate (L/min) 2 Oxygen Delivery Method Nasal Cannula Weight: 289 lb 0.416 oz Body Mass Index (BMI) 49.6 Intake & Output: Intake and Output for Last 24 Hours 10/29/21 10/30/21 10/31/21 23:59 23:59 23:59 Intake Total 1090 / 1290 350 / 350 Output Total 1800 / 1800 4000 / 4000 Balance -710 / -510 -3650 / -3650 Lab / Micro Data Result Diagrams: 10/31/21 04:22 10/31/21 04:22 Labs: Laboratory Results - last 24 hr 10/30/21 17:30: POC Glucose 100 10/30/21 21:41: POC Glucose 114 H 10/31/21 04:22: WBC 7.7, RBC 2.14 L, Hgb 7.3 L, Hct 22.9 L, MCV 107.0 H, MCH 34.1 H, MCHC 31.9 L, RDW Std Deviation 65.9 H, RDW Coeff of Angela 16.7 H, Plt Count 157, MPV 10.0, Immature Gran % (Auto) 0.500, Neut % (Auto) 72.5 H, Lymph % (Auto) 8.5 L, [place] % (Auto) 15.1 H, Eos % (Auto) 3.0, Baso % (Auto) 0.4, Absolute Neuts (auto) 5.6, Absolute Lymphs (auto) 0.66 L, Nucleated RBC % 0, Differential Comment SCANNED, Polychromasia RARE, Macrocytosis 1+ 10/31/21 04:22: Sodium 131 L, Potassium 4.0, Chloride 95 L, Carbon Dioxide 29.0, Anion Gap 7, BUN 37 H, Creatinine 3.39 H, Estim Creat Clear Calc 15.43, Est GFR (MDRD) Af Amer 18 L, Est GFR (MDRD) Non-Af 15 L, BUN/Creatinine Ratio 10.9, Glucose 92, Calcium 8.0 L 10/31/21 04:22: Random Vancomycin 20.7 H 10/31/21 06:43: POC Glucose 94 Radiography Diagnostic Testing: Radiology Impression Abdomen/Pelvis CT 10/30/21 11:13 IMPRESSION: Diffuse subcutaneous edema with skin thickening of the abdominal wall as well as the left breast. The patient is status post right mastectomy. Fatty infiltration of the liver. Small amount of perihepatic fluid. Fluid is seen in the pelvis. Multiple small gallstones. Electronically Signed: Georges Lucas MD at 13:26 EDT , Chest X-Ray 10/30/21 11:26 IMPRESSION: A right-sided central line is seen with the tip at the junction of the superior vena cava and right atrium. A left-sided double-lumen catheter is seen with the tip in the right atrium. Increased linear marking in the right mid lung suggestive of atelectasis and/or scarring. Electronically Signed: Georges Lucas MD at 12:47 EDT , Physical Exam Const oriented x3 and no apparent distress GI normal to inspection, nondistended, normoactive bowel sounds Assessment & Plan Assessment/Plan (1) Decubitus ulcer of buttock, stage 3: PLAN: Plan Patient not have any obvious pus or large amount of erythema at the wound likely this is due to pressure ulcer. We will plan to change the dressing with the nurse this afternoon. Likely patient may not need any future debridements as the underlying tissue looks good and the necrotic skin was able to be debrided in the ER. Patient may be able to stop antibiotic shortly depending evaluation of the ulcers. Veronique Berry M.D. Pager: [phone] [facility] [address] [place] [address], Outpatient [facility], [address] [place] [address] Office: [phone] Charges/Coding Visit Charges Inpatient E&M: 14682 Subs Hosp L2
[2021-10-31 13:01] LABS: Bedside Glucose 95 mg/dL (74-106)
--- NOTE | 2021-10-31 14:16 | NURSING ---
All morning medications were delayed due to patient receiving dialysis.
--- NOTE | 2021-10-31 14:31 | DIALYSIS ---
Hemodialysis today x4hr. UF -4000mL removed. pt tolerated tx Pt stable VSS. CVC closed and clamped. Report to FLORI Mark
--- NOTE | 2021-10-31 15:39 | PCM.TXEXTCAR ---
Diet Diet Order/Speech Therapy: 10/30/21 17:08 Diet: Renal - ConsCHO - Kumar Cont Is pt able to select menu?: No How many daily calories?: 1800 calorie Routine Orders/Code Status Enema Type: Fleetz Enema Frequency: Daily PRN Suppository Type: Dulcolax 10mg Suppository Frequency: Daily PRN O2 Liters per Minute: 2-3 O2 Frequency: Continuous Keep PO Greater than or Equal to (%): 90 Routine Lab Work: - (Weekly CBC, BMP) Code Status: Full Code Wound(s) buttock: Wound Type: Pressure Injury right buttock: Wound Type: Pressure Injury Dressing Change: AntiMicrobial (Aquacel AG, etc) left buttock: Wound Type: Pressure Injury Dressing Change: AntiMicrobial (Aquacel AG, etc) rt neck: Wound Type: Surgical Incision Suggestions for Active Care Change Position every (hours): 2 Times a day to sit in chair: 3 Therapies Weight Bearing: Full weight bearing Physical Therapy: Eval and Treat Occupational Therapy: Eval and Treat Problem/Diagnosis (1) Decubitus ulcer of buttock, stage 3: Status: Acute Code(s): L89.303 - Pressure ulcer of unspecified buttock, stage 3 Allergies/Procedures Done in Hospital Allergies codeine phosphate [From Tylenol-Codeine #3] Allergy (Verified 10/30/21 10:39) Swelling simvastatin [From Zocor] Allergy (Verified 10/30/21 10:39) Other Procedures: None Type of Care/Length of Stay Estimated LOS: More Than 30 Days Type of Care Needed: Intermediate Rehab Potential: Fair Prognosis: Fair Additional Orders/Day of Discharge H&P will serve as current which was dated: 10/30/21 Day of Discharge: 10/31/21 Dietary and Speech Recommendations Dietitian Recommendations/Changes: Change diet to 1800kcal Renal diet Mic BID with medpass Discharge Plan Admission Admit Date/Time: 10/30/21 11:55 Primary Reason for Your Visit: pressure ulcer Attending Provider: Veronique Berry Primary Care Provider: Ambrosio Barboru Consulting Providers: Veronique Berry ; Michael Max Instructions Additional Instructions / Restrictions: cleanse wounds to bilateral buttocks daily with soap and water. pat dry. place Aquacel AG to the wound beds (the right has some mild tunneling laterally so please be sure to use one piece for this so none is lost in the tunneling). cover with dry dressing and secure with medipore tape. change daily and prn. Discharge Orders/Prescriptions Prescriptions: Continued promethazine 25 MG tablet 25 mg PO Q8H PRN PRN (Reason: Nausea) Label Comments: Nausea medication carvedilol 6.25 MG tablet 6.25 mg PO DAILY nitroglycerin 0.4 MG tablet, sublingual 0.4 mg sublingual Q5M PRN (Reason: CHEST PAIN) bupropion HCl 300 MG tablet extended release 24 hr 300 mg PO DAILY gabapentin 300 MG capsule 100 mg PO DAILY tizanidine 2 MG capsule 2 mg PO TID PRN PRN (Reason: muscle relaxant) magnesium oxide 400 mg (241.3 mg magnesium) tablet 400 mg PO DAILY Label Comments: TAKE 1 TABLET BY MOUTH ONCE DAILY sertraline 25 mg tablet 100 mg PO DAILY Label Comments: TAKE 1 TABLET BY MOUTH AT BEDTIME albuterol sulfate 90 mcg/actuation HFA aerosol inhaler 2 puff INHALATION Q6H Label Comments: INHALE 2 PUFFS BY MOUTH EVERY 4 HOURS NEEDED ondansetron 4 mg tablet,disintegrating 4 mg PO Q8H PRN (Reason: nausea and vomiting) Qty: 10 0RF insulin glargine 100 UNITS/ML insulin pen 28 unit SC QHS Rx Instructions: Hold if HS glucose less than 130 mg/dl insulin lispro [Humalog KwikPen Insulin] 100 unit/mL insulin pen See Protocol subcut ACHS Protocol: 2. Sliding Scale Insulin Low-Med Dosing Condition: 150-209 mg/dl = 1 unit Condition: 210-269 mg/dl = 2 units Condition: 270-329 mg/dl = 3 units Condition: 330-389 mg/dl = 4 units Condition: 390-449 mg/dl = 5 units Condition: Greater than 449 call physician Protocol Text: - Use for Total Daily Dose of Insulin 28-36 units - Average size patients LOW MEDIUM DOSING ALGORITHM losartan 50 mg Tablet 50 mg PO DAILY glucagon 1 mg Kit 1 mg IM PRN PRN (Reason: Hypoglycemia) atorvastatin 80 mg Tablet 80 mg PO QHS acetaminophen 325 mg Tablet 650 mg PO Q4H PRN (Reason: pain/fever) acetaminophen 650 mg Suppository 650 mg MO Q4H PRN (Reason: pain/fever) dextrose [Glucose Gel] 40 % Gel 10 g PO Q15M PRN (Reason: Hypoglycemia) miconazole nitrate 2 % Powder 1 applic TOPICAL TID aspirin 81 mg Tablet,Delayed Release (Dr/Ec) 81 mg PO DAILY magnesium hydroxide [Milk of Magnesia] 400 mg/5 mL Suspension 30 ml PO DAILY PRN (Reason: Constipation) bisacodyl 10 mg Suppository 10 mg MO DAILY PRN (Reason: Constipation) aluminum-magnesium hydroxide 225-200 mg/5 mL Suspension 30 ml PO Q4H PRN PRN (Reason: Indigestion) Fleet Enema 19-7 gram/118 mL Enema 118 ml MO DAILY PRN (Reason: Constipation) Renal Vitamin 0.8 mg Tablet 1 tab PO DAILY calcitriol 0.25 mcg Capsule 0.25 mcg PO DAILY guaifenesin 200 mg/5 mL Liquid 200 mg PO Q4H PRN (Reason: Cough) loratadine 10 mg Capsule 10 mg PO DAILY ticagrelor 90 mg Tablet 90 mg PO BID levothyroxine 200 mcg tablet 300 mcg PO DAILY 30 Days Qty: 45 0RF ibuprofen 400 mg Tablet 400 mg PO Q8H PRN (Reason: Pain) Referrals / Follow Up: Ambrosio Barbour MD [Primary Care Provider] - In 1 Week Center,Wound [NON-STAFF] - Within 1 Week Disposition Disposition (needs filled in before D/C Order can be placed): Intermediate Facility
[2021-10-31] MEDS: Nepro Liquid 120 ML LIQUID PO (16:01)
[2021-10-31] MEDS: Insulin Lispro 100 UNIT/ML INSULN.PEN SC (16:08)
[2021-10-31 16:25] LABS: Bedside Glucose 185 mg/dL (74-106)
--- NOTE | 2021-10-31 17:12 | DS.PCM_ITS ---
Documented by User: Lorraine Rawls NP, CRAWLER DRAGLINE OPERATOR-C 10/31/21 17:27 Providers Date of Admission: 10/30/21 Date of Discharge: 10/31/21 Primary Care Physician: Dr. Ambrosio Barbour MD Consultations 10/30/21 13:43 Consult: General Surgery Routine Consulting Provider: Veronique Berry Reason for Consult: buttocks abcess EMERGENT Consult: No MD Notified: Yes Date Notified: 10/30/21 Time Notified: 12:26 Method of Notification: Verbal Consult: Nephrology Routine Consulting Provider: Michael Max Reason for Consult: ESRD EMERGENT Consult: No Notified: Yes Date Notified: 10/30/21 Time Notified: 12:16 Method of Notification: Verbal Consult: Onc/Wound/airfield operations specialist Routine Comment: Reason for Consult:: buttocks wounds Reason For Visit: BUTTOCKS WOUNDS Diagnosis Discharge Diagnosis (1) Decubitus ulcer of buttock, stage 3: Status: Acute Code(s): L89.303 - Pressure ulcer of unspecified buttock, stage 3 Medications at Discharge Home Medications promethazine 25 mg tablet 25 mg PO Q8H PRN PRN Nausea 05/14/13 carvedilol 6.25 mg tablet 6.25 mg PO DAILY HEART 08/13/19 bupropion HCl 300 mg 24 hr tablet, extended release 300 mg PO DAILY DEPRESSION 12/21/19 nitroglycerin 0.4 mg sublingual tablet 0.4 mg sublingual Q5M PRN CHEST PAIN 12/21/19 gabapentin 300 mg capsule 100 mg PO DAILY neuropathy 01/19/20 tizanidine 2 mg capsule 2 mg PO TID PRN PRN muscle relaxant 01/19/20 albuterol sulfate 90 mcg/actuation aerosol inhaler 2 puff inhalation Q6H 08/28/20 magnesium oxide 400 mg (241.3 mg magnesium) tablet 400 mg PO DAILY supplement 08/28/20 sertraline 25 mg tablet 100 mg PO DAILY depression 08/28/20 ondansetron 4 mg disintegrating tablet 4 mg PO Q8H PRN nausea and vomiting #10 tabs 06/16/21 insulin glargine 100 unit/mL (3 mL) subcutaneous pen 28 unit SC QHS blood sugar 08/10/21 insulin lispro 100 unit/mL subcutaneous pen (Humalog KwikPen (U-100) Insulin) See Protocol subcut ACHS DM 08/10/21 acetaminophen 325 mg tablet 650 mg PO Q4H PRN pain/fever 09/14/21 acetaminophen 650 mg rectal suppository 650 mg VT Q4H PRN pain/fever 09/14/21 aluminum-magnesium hydroxide 225 mg-200 mg/5 mL oral suspension 30 ml PO Q4H PRN PRN Indigestion 09/14/21 aspirin 81 mg tablet,delayed release 81 mg PO DAILY blood thinner 09/14/21 atorvastatin 80 mg tablet 80 mg PO QHS cholesterol 09/14/21 bisacodyl 10 mg rectal suppository 10 mg VT DAILY PRN Constipation 09/14/21 calcitriol 0.25 mcg capsule 0.25 mcg PO DAILY supplement 09/14/21 dextrose 40 % oral gel (Glucose Gel) 10 g PO Q15M PRN Hypoglycemia 09/14/21 glucagon 1 mg injection kit 1 mg IM PRN PRN Hypoglycemia 09/14/21 guaifenesin 200 mg/5 mL oral liquid 200 mg PO Q4H PRN Cough 09/14/21 levothyroxine 200 mcg tablet 300 mcg PO DAILY thyroid 30 days #45 tabs 09/14/21 loratadine 10 mg capsule 10 mg PO DAILY allergies 09/14/21 losartan 50 mg tablet 50 mg PO DAILY bp 09/14/21 magnesium hydroxide 400 mg/5 mL oral suspension (Milk of Magnesia) 30 ml PO DAILY PRN Constipation 09/14/21 miconazole nitrate 2 % topical powder 1 applic topical TID Check with primary doctor 09/14/21 sodium phosphates 19 gram-7 gram/118 mL enema (Fleet Enema) 118 ml VT DAILY PRN Constipation 09/14/21 ticagrelor 90 mg tablet 90 mg PO BID blood thinner 09/14/21 vitamin B complex-vitamin C-folic acid 0.8 mg tablet (Renal Vitamin) 1 tab PO DAILY suppelemt 09/14/21 ibuprofen 400 mg tablet 400 mg PO Q8H PRN Pain 10/30/21 Hospital Course Operations None Procedures None Summary of Care Provided Hospital Course: Patient is a 61-year-old female admitted 10/30/2021 due to buttock wounds. 1.? Decubitus stage III bilateral buttock ulcerations-initially suspected abscess however following necrotic tissue debridement, no evidence of pus or erythema indicating underlying infection. Underwent bedside incision and dr portillo 10/30/2021.? Further antibiotics discontinued. Continue dressing changes at SNF as ordered. Follow-up with wound center on Wednesday. 2. Chronic heart failure with preserved ejection fraction-no exacerbation.? Continue dialysis for fluid management. 3. CAD with history of PCI-recent intervention July 2021 at [facility].? On aspirin, Brilinta, statin, beta-joaquin. 4. Type 2 diabetes mellitus-Continue home insulin regimen. 5. End-stage renal disease on hemodialysis-nephrology consulted. Patient has a reported history of noncompliance with dialysis. Patient's niece, POA asking about hospice. Recommend further discussion/consult at SNF. 6. Hypothyroidism-continue Synthroid. 7. Depression/anxiety-on bupropion, sertraline. 8. Anemia of chronic disease-at baseline. 9. Morbid obesity-encouraged diet and lifestyle modifications. Physical Exam Const alert, oriented x3 and no apparent distress Orientation / Consciousness: awake, oriented to person, oriented to place and oriented to time Nutritional Appearance: obese HEENT normocephalic Mouth: dry mucous membranes Eyes PERRL, EOMs intact bilaterally and conjunctivae normal Neck no lymphadenopathy Resp clear to auscultation bilaterally Auscultation: diminished lung sounds Cardio regular rate, regular rhythm and no murmurs Peripheral Pulses: pulses 2+ throughout GI normal to inspection, nondistended, normoactive bowel sounds, non-tender and non-distended Extremity normal to inspection Skin no rashes or lesions noted Skin Narrative: Bilateral buttock wounds- stable appearing Lesions: no lesions Rashes: no rashes Trauma: no lacerations or abrasions Neuro CN's II-XII intact bilaterally, no focal motor deficits, no sensory deficits noted and deep tendon reflexes 2+ bilaterally Psych Mood & Affect: flat affect Patient seen and examined prior to discharge. Physical assessment as noted above. Patient is stable for discharge with follow up recommendations as noted above. This patient was seen by MARCELO Bullock under the supervision of Dr. Mariscal. Time spent examining patient, reviewing data and subsequent management of care: 25 minutes Weight / BMI Weight Weight: 289 lb 0.416 oz Body Mass Index (BMI) 49.6 ABG / Lab / Microbiology Data Result Diagrams: 10/31/21 04:22 10/31/21 04:22 Laboratory: Laboratory Results - last 24 hr 10/30/21 17:30: POC Glucose 100 10/30/21 21:41: POC Glucose 114 H 10/31/21 04:22: WBC 7.7, RBC 2.14 L, Hgb 7.3 L, Hct 22.9 L, MCV 107.0 H, MCH 34.1 H, MCHC 31.9 L, RDW Std Deviation 65.9 H, RDW Coeff of Angela 16.7 H, Plt Count 157, MPV 10.0, Immature Gran % (Auto) 0.500, Neut % (Auto) 72.5 H, Lymph % (Auto) 8.5 L, [place] % (Auto) 15.1 H, Eos % (Auto) 3.0, Baso % (Auto) 0.4, Absolute Neuts (auto) 5.6, Absolute Lymphs (auto) 0.66 L, Nucleated RBC % 0, Differential Comment SCANNED, Polychromasia RARE, Macrocytosis 1+ 10/31/21 04:22: Sodium 131 L, Potassium 4.0, Chloride 95 L, Carbon Dioxide 29.0, Anion Gap 7, BUN 37 H, Creatinine 3.39 H, Estim Creat Clear Calc 15.43, Est GFR (MDRD) Af Amer 18 L, Est GFR (MDRD) Non-Af 15 L, BUN/Creatinine Ratio 10.9, Glucose 92, Calcium 8.0 L 10/31/21 04:22: Random Vancomycin 20.7 H 10/31/21 06:43: POC Glucose 94 10/31/21 12:20: POC Glucose 95 10/31/21 16:03: POC Glucose 185 H Meaningful Use Info Meaningful Use Diagnoses (Choose all that apply): None applicable Discharge Plan Admission Admit Date/Time: 10/30/21 11:55 Primary Reason for Your Visit: pressure ulcer Attending Provider: Veronique Berry Primary Care Provider: Ambrosio Barbour Consulting Providers: Veronique Berry ; Michael Max Instructions Additional Instructions / Restrictions: cleanse wounds to bilateral buttocks daily with soap and water. pat dry. place Aquacel AG to the wound beds (the right has some mild tunneling laterally so please be sure to use one piece for this so none is lost in the tunneling). cover with dry dressing and secure with medipore tape. change daily and prn. Discharge Orders/Prescriptions Prescriptions: Continued promethazine 25 MG tablet 25 mg PO Q8H PRN PRN (Reason: Nausea) Label Comments: Nausea medication carvedilol 6.25 MG tablet 6.25 mg PO DAILY nitroglycerin 0.4 MG tablet, sublingual 0.4 mg sublingual Q5M PRN (Reason: CHEST PAIN) bupropion HCl 300 MG tablet extended release 24 hr 300 mg PO DAILY gabapentin 300 MG capsule 100 mg PO DAILY tizanidine 2 MG capsule 2 mg PO TID PRN PRN (Reason: muscle relaxant) magnesium oxide 400 mg (241.3 mg magnesium) tablet 400 mg PO DAILY Label Comments: TAKE 1 TABLET BY MOUTH ONCE DAILY sertraline 25 mg tablet 100 mg PO DAILY Label Comments: TAKE 1 TABLET BY MOUTH AT BEDTIME albuterol sulfate 90 mcg/actuation HFA aerosol inhaler 2 puff INHALATION Q6H Label Comments: INHALE 2 PUFFS BY MOUTH EVERY 4 HOURS NEEDED ondansetron 4 mg tablet,disintegrating 4 mg PO Q8H PRN (Reason: nausea and vomiting) Qty: 10 0RF insulin glargine 100 UNITS/ML insulin pen 28 unit SC QHS Rx Instructions: Hold if HS glucose less than 130 mg/dl insulin lispro [Humalog KwikPen Insulin] 100 unit/mL insulin pen See Protocol subcut ACHS Protocol: 2. Sliding Scale Insulin Low-Med Dosing Condition: 150-209 mg/dl = 1 unit Condition: 210-269 mg/dl = 2 units Condition: 270-329 mg/dl = 3 units Condition: 330-389 mg/dl = 4 units Condition: 390-449 mg/dl = 5 units Condition: Greater than 449 call physician Protocol Text: - Use for Total Daily Dose of Insulin 28-36 units - Average size patients LOW MEDIUM DOSING ALGORITHM losartan 50 mg Tablet 50 mg PO DAILY glucagon 1 mg Kit 1 mg IM PRN PRN (Reason: Hypoglycemia) atorvastatin 80 mg Tablet 80 mg PO QHS acetaminophen 325 mg Tablet 650 mg PO Q4H PRN (Reason: pain/fever) acetaminophen 650 mg Suppository 650 mg VT Q4H PRN (Reason: pain/fever) dextrose [Glucose Gel] 40 % Gel 10 g PO Q15M PRN (Reason: Hypoglycemia) miconazole nitrate 2 % Powder 1 applic TOPICAL TID aspirin 81 mg Tablet,Delayed Release (Dr/Ec) 81 mg PO DAILY magnesium hydroxide [Milk of Magnesia] 400 mg/5 mL Suspension 30 ml PO DAILY PRN (Reason: Constipation) bisacodyl 10 mg Suppository 10 mg VT DAILY PRN (Reason: Constipation) aluminum-magnesium hydroxide 225-200 mg/5 mL Suspension 30 ml PO Q4H PRN PRN (Reason: Indigestion) Fleet Enema 19-7 gram/118 mL Enema 118 ml VT DAILY PRN (Reason: Constipation) Renal Vitamin 0.8 mg Tablet 1 tab PO DAILY calcitriol 0.25 mcg Capsule 0.25 mcg PO DAILY guaifenesin 200 mg/5 mL Liquid 200 mg PO Q4H PRN (Reason: Cough) loratadine 10 mg Capsule 10 mg PO DAILY ticagrelor 90 mg Tablet 90 mg PO BID levothyroxine 200 mcg tablet 300 mcg PO DAILY 30 Days Qty: 45 0RF ibuprofen 400 mg Tablet 400 mg PO Q8H PRN (Reason: Pain) Referrals / Follow Up: Ambrosio Barbour MD [Primary Care Provider] - In 1 Week Center,Wound [NON-STAFF] - See Referral Note (Make appointment for Wednesday) Disposition Disposition (needs filled in before D/C Order can be placed): [facility] Facility Documented by User: Dr. Iban Mariscal DO 10/31/21 17:36 Providers Date of Admission: 10/30/21 Reason For Visit: BUTTOCKS WOUNDS Diagnosis Discharge Diagnosis (1) Decubitus ulcer of buttock, stage 3: Status: Acute Code(s): L89.303 - Pressure ulcer of unspecified buttock, stage 3 Medications at Discharge Home Medications promethazine 25 mg tablet 25 mg PO Q8H PRN PRN Nausea 05/14/13 carvedilol 6.25 mg tablet 6.25 mg PO DAILY HEART 08/13/19 bupropion HCl 300 mg 24 hr tablet, extended release 300 mg PO DAILY DEPRESSION 12/21/19 nitroglycerin 0.4 mg sublingual tablet 0.4 mg sublingual Q5M PRN CHEST PAIN 12/21/19 gabapentin 300 mg capsule 100 mg PO DAILY neuropathy 01/19/20 tizanidine 2 mg capsule 2 mg PO TID PRN PRN muscle relaxant 01/19/20 albuterol sulfate 90 mcg/actuation aerosol inhaler 2 puff inhalation Q6H 08/28/20 magnesium oxide 400 mg (241.3 mg magnesium) tablet 400 mg PO DAILY supplement 08/28/20 sertraline 25 mg tablet 100 mg PO DAILY depression 08/28/20 ondansetron 4 mg disintegrating tablet 4 mg PO Q8H PRN nausea and vomiting #10 tabs 06/16/21 insulin glargine 100 unit/mL (3 mL) subcutaneous pen 28 unit SC QHS blood sugar 08/10/21 insulin lispro 100 unit/mL subcutaneous pen (Humalog KwikPen (U-100) Insulin) See Protocol subcut ACHS DM 08/10/21 acetaminophen 325 mg tablet 650 mg PO Q4H PRN pain/fever 09/14/21 acetaminophen 650 mg rectal suppository 650 mg VT Q4H PRN pain/fever 09/14/21 aluminum-magnesium hydroxide 225 mg-200 mg/5 mL oral suspension 30 ml PO Q4H PRN PRN Indigestion 09/14/21 aspirin 81 mg tablet,delayed release 81 mg PO DAILY blood thinner 09/14/21 atorvastatin 80 mg tablet 80 mg PO QHS cholesterol 09/14/21 bisacodyl 10 mg rectal suppository 10 mg VT DAILY PRN Constipation 09/14/21 calcitriol 0.25 mcg capsule 0.25 mcg PO DAILY supplement 09/14/21 dextrose 40 % oral gel (Glucose Gel) 10 g PO Q15M PRN Hypoglycemia 09/14/21 glucagon 1 mg injection kit 1 mg IM PRN PRN Hypoglycemia 09/14/21 guaifenesin 200 mg/5 mL oral liquid 200 mg PO Q4H PRN Cough 09/14/21 levothyroxine 200 mcg tablet 300 mcg PO DAILY thyroid 30 days #45 tabs 09/14/21 loratadine 10 mg capsule 10 mg PO DAILY allergies 09/14/21 losartan 50 mg tablet 50 mg PO DAILY bp 09/14/21 magnesium hydroxide 400 mg/5 mL oral suspension (Milk of Magnesia) 30 ml PO DAILY PRN Constipation 09/14/21 miconazole nitrate 2 % topical powder 1 applic topical TID Check with primary doctor 09/14/21 sodium phosphates 19 gram-7 gram/118 mL enema (Fleet Enema) 118 ml VT DAILY PRN Constipation 09/14/21 ticagrelor 90 mg tablet 90 mg PO BID blood thinner 09/14/21 vitamin B complex-vitamin C-folic acid 0.8 mg tablet (Renal Vitamin) 1 tab PO DAILY suppelemt 09/14/21 ibuprofen 400 mg tablet 400 mg PO Q8H PRN Pain 10/30/21 ABG / Lab / Microbiology Data Result Diagrams: 10/31/21 04:22 10/31/21 04:22 Discharge Plan Admission Admit Date/Time: 10/30/21 11:55 Primary Reason for Your Visit: pressure ulcer Attending Provider: Veronique Berry Primary Care Provider: Ambrosio Barbour Consulting Providers: Veronique Berry ; Michael Max Instructions Additional Instructions / Restrictions: cleanse wounds to bilateral buttocks daily with soap and water. pat dry. place Aquacel AG to the wound beds (the right has some mild tunneling laterally so please be sure to use one piece for this so none is lost in the tunneling). c over with dry dressing and secure with medipore tape. change daily and prn. Discharge Orders/Prescriptions Prescriptions: Continued promethazine 25 MG tablet 25 mg PO Q8H PRN PRN (Reason: Nausea) Label Comments: Nausea medication carvedilol 6.25 MG tablet 6.25 mg PO DAILY nitroglycerin 0.4 MG tablet, sublingual 0.4 mg sublingual Q5M PRN (Reason: CHEST PAIN) bupropion HCl 300 MG tablet extended release 24 hr 300 mg PO DAILY gabapentin 300 MG capsule 100 mg PO DAILY tizanidine 2 MG capsule 2 mg PO TID PRN PRN (Reason: muscle relaxant) magnesium oxide 400 mg (241.3 mg magnesium) tablet 400 mg PO DAILY Label Comments: TAKE 1 TABLET BY MOUTH ONCE DAILY sertraline 25 mg tablet 100 mg PO DAILY Label Comments: TAKE 1 TABLET BY MOUTH AT BEDTIME albuterol sulfate 90 mcg/actuation HFA aerosol inhaler 2 puff INHALATION Q6H Label Comments: INHALE 2 PUFFS BY MOUTH EVERY 4 HOURS NEEDED ondansetron 4 mg tablet,disintegrating 4 mg PO Q8H PRN (Reason: nausea and vomiting) Qty: 10 0RF insulin glargine 100 UNITS/ML insulin pen 28 unit SC QHS Rx Instructions: Hold if HS glucose less than 130 mg/dl insulin lispro [Humalog KwikPen Insulin] 100 unit/mL insulin pen See Protocol subcut [facility] Protocol: 2. Sliding Scale Insulin Low-Med Dosing Condition: 150-209 mg/dl = 1 unit Condition: 210-269 mg/dl = 2 units Condition: 270-329 mg/dl = 3 units Condition: 330-389 mg/dl = 4 units Condition: 390-449 mg/dl = 5 units Condition: Greater than 449 call physician Protocol Text: - Use for Total Daily Dose of Insulin 28-36 units - Average size patients LOW MEDIUM DOSING ALGORITHM losartan 50 mg Tablet 50 mg PO DAILY glucagon 1 mg Kit 1 mg IM PRN PRN (Reason: Hypoglycemia) atorvastatin 80 mg Tablet 80 mg PO QHS acetaminophen 325 mg Tablet 650 mg PO Q4H PRN (Reason: pain/fever) acetaminophen 650 mg Suppository 650 mg VT Q4H PRN (Reason: pain/fever) dextrose [Glucose Gel] 40 % Gel 10 g PO Q15M PRN (Reason: Hypoglycemia) miconazole nitrate 2 % Powder 1 applic TOPICAL TID aspirin 81 mg Tablet,Delayed Release (Dr/Ec) 81 mg PO DAILY magnesium hydroxide [Milk of Magnesia] 400 mg/5 mL Suspension 30 ml PO DAILY PRN (Reason: Constipation) bisacodyl 10 mg Suppository 10 mg VT DAILY PRN (Reason: Constipation) aluminum-magnesium hydroxide 225-200 mg/5 mL Suspension 30 ml PO Q4H PRN PRN (Reason: Indigestion) Fleet Enema 19-7 gram/118 mL Enema 118 ml VT DAILY PRN (Reason: Constipation) Renal Vitamin 0.8 mg Tablet 1 tab PO DAILY calcitriol 0.25 mcg Capsule 0.25 mcg PO DAILY guaifenesin 200 mg/5 mL Liquid 200 mg PO Q4H PRN (Reason: Cough) loratadine 10 mg Capsule 10 mg PO DAILY ticagrelor 90 mg Tablet 90 mg PO BID levothyroxine 200 mcg tablet 300 mcg PO DAILY 30 Days Qty: 45 0RF ibuprofen 400 mg Tablet 400 mg PO Q8H PRN (Reason: Pain) Referrals / Follow Up: Barbour,Ambrosio, MD [Primary Care Provider] - In 1 Week Center,Wound [NON-STAFF] - See Referral Note (Make appointment for Wednesday) Disposition Disposition (needs filled in before D/C Order can be placed): Prison Facility Charges/Coding Addendum Addendum: Patient was seen and examined today independently of Lorraine Rawls, I talked with nephrology and general surgery by phone, general surgery feels that the patient is stable at this time for discharge back to the extended care facility on no antibiotics. Nephrology feels that the patient will not need to be dialyzed till next Wednesday again. On examination she appeared older than her stated age, she is morbidly obese, she does not appear to be in any distress. Vital signs as documented. Skin warm and dry and without overt rashes, the abscessed areas over the patient's buttocks was not examined due to the fact surgical dressing is in place on both areas. Neck without JVD, thyroid appears normal, trachea is midline, neck is supple. Lungs clear, normal air movement was noted. Heart exam notable for regular rhythm, normal sounds and absence of murmurs, rubs or gallops. Abdomen unremarkable and without evidence of organomegaly, masses, or abdominal aortic enlargement, bowel sounds are present in all 4 quadrants, no abdominal tenderness was noted. Extremities-generalized pitting edema is noted over the patient's legs bilaterally, no cyanosis was noted, no clubbing was noted.? Neuro: Cranial nerves II through XII are grossly intact, no focal motor deficits were noted, sensation to light touch and pinprick is intact, motor exam 5/5 throughout.? Psych: Patient is alert and oriented x3, she does not appear anxious or depressed, she does not appear agitated. #1 bilateral buttocks abscesses #2 end-stage renal disease on dialysis #3 morbid obesity-complicates care, management, recovery, and prognosis. #4 hyperlipidemia-patient is on atorvastatin #5 chronic depression-patient is on Wellbutrin and Zoloft #6 anemia of chronic kidney disease-CBC will be monitored, patient will not be transfused today #7 hyponatremia-this will be monitored, this does not appear to be an issue at this time #8 type 2 diabetes-blood sugars will be monitored, sliding scale insulin will be used if needed #9 hypothyroidism-patient is on Synthroid #10 coronary artery disease-patient had a coronary artery stent inserted over the last few months, she is currently on Brilinta and aspirin Patient appears stable for discharge to her extended care facility for [facility] care on 10/31/2021. I have reviewed Lorraine Rawls's discharge summary including her medical assessment and plan of care and with the above additions endorse it. Total clinical time spent by myself addressing patient's medical issues, reviewing the data, and collaborating with patient's care team: 32 minutes Visit Charges Inpatient E&M: 21054 Disch Hosp
[2021-10-31 18:59] VITALS: BP 110/53; PULSE 95; RESP 17; TEMP 36.4; O2SAT 98
--- NOTE | 2021-10-31 20:30 | NURSING ---
Pt awaiting transport to [facility]. Report given to nurse [facility] to arrive.
--- NOTE | 2021-10-31 20:44 | NURSING ---
Physicians arrived to case picker pt. Report given.
== END 2021-10-31 20:45 | DRG 602 ==
LOC: ED 11:48 → PCU 12:23
PROVIDERS: Internal Medicine Nephrology; Physician Assistant; Admitting Provider Internal Medicine; Emergency Provider Emergency Medicine; PCP Family Medicine; Visit Provider Surgery
DX: L02.31 Cutaneous abscess of buttock (principal); L89.313 Pressure ulcer of right buttock, stage 3; N18.6 End stage renal disease; L89.323 Pressure ulcer of left buttock, stage 3; I13.2 Hypertensive heart and chronic kidney disease with heart failure and with stage 5 chronic kidney disease, or end stage renal disease; E87.1 Hypo-osmolality and hyponatremia; Z68.42 Body mass index [BMI] 45.0-49.9, adult; D63.1 Anemia in chronic kidney disease; E11.22 Type 2 diabetes mellitus with diabetic chronic kidney disease; I50.9 Heart failure, unspecified; Z99.2 Dependence on renal dialysis; Z79.4 Long term (current) use of insulin; E66.01 Morbid (severe) obesity due to excess calories; Z91.15 Patient's noncompliance with renal dialysis; D64.9 Anemia, unspecified; I25.10 Atherosclerotic heart disease of native coronary artery without angina pectoris; F17.200 Nicotine dependence, unspecified, uncomplicated; E78.5 Hyperlipidemia, unspecified; E03.9 Hypothyroidism, unspecified; F41.9 Anxiety disorder, unspecified; Z74.01 Bed confinement status; Z79.82 Long term (current) use of aspirin; Z79.02 Long term (current) use of antithrombotics/antiplatelets; G89.29 Other chronic pain; F32.A Depression, unspecified
CPT/HCPCS: 71045; 74177; 80048; 80053; 80202; 82962; 83605; 85025; 85610; 85730; 87040; 87811; 90937; 97162; 99285; J7030; J7040; Q9967; A4216; C1751; G0257; J2405